=== PATIENT | female | born 1950 | race Caucasian/White ===

== ENCOUNTER 2016-12-17 21:29 | Inpatient (IN) | payer MEDICARE, MEDICAID ==
[~2016-12-17] VITALS: Ht 170.2 cm; Wt 57.2 kg
[2016-12-17] MEDS ORDERED: Albuterol ud Inhalation HHN ONE (21:45)
[2016-12-17] MEDS ORDERED: Ipratropium 0.02% Inh Soln 2.5ml UD HHN ONE (21:45)
[2016-12-17] MEDS ORDERED: Morphine Sulfate 4mg/ml Inj IVP ONE (21:45)
[2016-12-17] MEDS ORDERED: Solu-MEDROL 125mg Inj IVP ONE (21:45)
[2016-12-17] MEDS ORDERED: Tubing IV Cassette IV ONE (22:08)
[2016-12-17 22:28] LABS: BASOPHILS % (AUTO) 1.7 % (0.0-2.0); EOSINOPHILS % (AUTO) 3.4 % (0.0-3.0); HEMOGLOBIN 12.8 G/DL (12.0-16.0); LYMPHOCYTES % (AUTO) 28.1 % (20.0-45.0); MEAN CORPUSCULAR VOLUME 95 FL (80-99); MONOCYTES % (AUTO) 4.4 % (1.0-10.0); NEUTROPHILS % (AUTO) 62.3 % (45.0-75.0); PLATELET COUNT 442 K/UL (150-450); RED BLOOD COUNT 4.72 M/UL (4.20-5.40); RED CELL DISTRIBUTION WIDTH 16.9 % (11.6-14.8); WHITE BLOOD COUNT 16.2 K/UL (4.8-10.8)
[2016-12-17 22:33] LABS: INR 0.9 (0.9-1.1)
[2016-12-17 22:35] LABS: BILIRUBIN, URINE NEGATIVE (NEGATIVE); GLUCOSE, URINE (UA) NEGATIVE (NEGATIVE); KETONES,URINE NEGATIVE (NEGATIVE); LEUKOCYTE ESTERASE ,URINE 3+ (NEGATIVE); NITRITE,URINE NEGATIVE (NEGATIVE); PH,URINE 7 (4.5-8.0); PROTEIN,URINE 2+ (NEGATIVE); UROBILINOGEN,URINE 1 MG/DL (0.0-1.0)
[2016-12-17 22:36] LABS: APPEARANCE,URINE SLIGHTLY CLOUDY; COLOR,URINE YELLOW
[2016-12-17 22:39] LABS: ALANINE AMINOTRANSFERASE 10 U/L (3-33); ALBUMIN 3.2 g/dL (3.5-5.2); ALBUMIN/GLOBULIN RATIO 0.8 (1.0-2.7); ALKALINE PHOSPHATASE 112 U/L (35-104); ANION GAP 11 (5-15); ASPARTATE AMINO TRANSFERASE 21 U/L (5-40); BILIRUBIN,TOTAL 0.2 mg/dL (0.0-1.2); BLOOD UREA NITROGEN 21 mg/dL (7-23); CALCIUM 9.8 mg/dL (8.6-10.2); CARBON DIOXIDE 26 mEQ/L (20-30); CHLORIDE 102 mEQ/L (98-107); CREATINE KINASE 23 U/L (26-140); CREATININE 0.5 mg/dL (0.5-0.9); POTASSIUM 4.6 mEQ/L (3.4-4.9); SODIUM 139 mEQ/L (135-145)
[2016-12-17 22:49] LABS: CKMB 3.5 ng/mL (< 3.8)
[2016-12-17 22:51] VITALS: BP 148/81
[2016-12-17] MEDS ORDERED: PROTONIX40 M2 GT (23:13)
[2016-12-17] MEDS ORDERED: TRAMADOL HCL50 MG GT (23:13)
[2016-12-17] MEDS ORDERED: CALCIUM 500 +1 EAC6 GT (23:13)
[2016-12-17] MEDS ORDERED: GABAPENTIN100 MG GT (23:13)
[2016-12-17] MEDS ORDERED: DIGOXIN0.25 MG/5 GT (23:13)
[2016-12-17] MEDS ORDERED: DOCUSATE SODIU100 MG GT (23:13)
[2016-12-17] MEDS ORDERED: LEVOTHYROXINE75 MCG GT (23:13)
[2016-12-17] MEDS ORDERED: ACTOS15 MG GT (23:13)
[2016-12-17] MEDS ORDERED: ZINC SULFATE220 M1 GT (23:13)
[2016-12-17] MEDS ORDERED: LORAZEPAM1 MG GT (23:13)
[2016-12-17] MEDS ORDERED: DUONEB 0.5-3(2.53 ML TRANSTR092 (23:13)
[2016-12-17] MEDS ORDERED: VITAMIN D1000 UNI1 GT (23:13)
[2016-12-17] MEDS ORDERED: HYDROMORPHONE GT (23:13)
[2016-12-17] MEDS ORDERED: ZOFRAN4 M3 GT (23:13)
[2016-12-17] MEDS ORDERED: TOPAMAX200 MG GT (23:13)
[2016-12-17] MEDS ORDERED: ASCORBIC ACID500 MG GT (23:13)
[2016-12-17] MEDS ORDERED: FOLIC ACID1 MG ESINUS (23:13)
[2016-12-17] MEDS ORDERED: HYDROXYZINE HCL25 M1 GT (23:13)
[2016-12-17] MEDS ORDERED: MIRTAZAPINE7.5 MG GT (23:13)
[2016-12-17] MEDS ORDERED: METOCLOPRA10 MG/10 M GT (23:13)
[2016-12-17] MEDS ORDERED: Albuterol/Ipratropium 3ml neb HHN PRN (23:15)
[2016-12-17] MEDS ORDERED: Miralax 17gm pkt ORAL PRN (23:15)
[2016-12-17] MEDS ORDERED: Nitroglycerin Subl 0.4mg tab SL PRN (23:15)
[2016-12-17] MEDS ORDERED: Mylanta II UD 30ml GT PRN (23:15)
--- NOTE | 2016-12-17 23:27 | Emergency Room Report ---
History of Present Illness General Chief Complaint: Dyspnea/Respdistress Source: Patient Present Illness HPI Is a 66-year-old female with a history of COPD and chronic tracheostomy. She also has a history of chronic pain. She presents with chief complaint of chest pain and shortness of breath. Onset for last few days. Pain is to the left chest area. Sharp. 10 out of 10. No nausea no vomiting. No fever or chills. Coughing but nonproductive in nature. Similar symptoms in the past. Allergies: Coded Allergies: ACETAMINOPHEN (Unverified Allergy, Unknown, 12/17/16) CODEINE (Unverified Allergy, Unknown, 03/04/14) IODINE (Unverified Allergy, Unknown, 12/17/16) Patient History Past Medical History: see triage record, old chart reviewed Past Surgical History: other Pertinent Family History: none Social History: Reports: smoking - History of Last Menstrual Period: none Now: No Immunizations: other Reviewed Nursing Documentation: PMH: Agreed, PSxH: Agreed Nursing Documentation-PMH Hx COPD: Yes - acute and chronic respiratory failure Hx Seizures: Yes Review of Systems Eye: Denies: eye pain, blurred vision ENT: Denies: ear pain, nose congestion, throat swelling Respiratory: Reports: cough, shortness of breath Cardiovascular: Reports: chest pain, Denies: palpitations Gastrointestinal: Denies: abdominal pain, diarrhea, nausea, vomiting Musculoskeletal: Denies: back pain, joint pain Skin: Denies: rash Neurological: Denies: headache, numbness Endocrine: Denies: increased thirst, increased urine Hematologic/Lymphatic: Denies: easy bruising All Other Systems: negative except mentioned in HPI Physical Exam Vital Signs Date Time Temp Pulse Resp B/P (MAP) Pulse Ox O2 Delivery O2 Flow Rate FiO2 12/17/16 21:13 97.3 104 28 143/82 89 Trach Collar 6.0 12/17/16 22:04 45 vitals with hypoxia Sp02 EP Interpretation: abnormal General Appearance: mild distress, cachetic, Chronically Ill Head: normocephalic, atraumatic Eyes: bilateral eye PERRL, bilateral eye EOMI ENT: hearing grossly normal, normal pharynx Neck: full range of motion, supple, no meningismus, tracheotomy Respiratory: chest non-tender, rhonchi, wheezing Cardiovascular #1: regular rate, rhythm, no murmur Gastrointestinal: normal bowel sounds, non tender, no mass, no organomegaly, no bruit, non-distended Musculoskeletal: back normal, normal range of motion Neurologic: alert Psychiatric: mood/affect normal Skin: warm/dry Procedures Additional Procedure Procedure Narrative procedure: Replacement of tracheostomy tube Indication: Tracheostomy malfunction Description: Patient was hypoxic. Breathing treatment and oxygen due to tracheostomy was not successful. oxygenation came up with nasal cannula. The pharmaceutical laboratory technician notified me that the tracheostomy tube is jail out and he is unable to put it back in. I removed the tube and noticed that the membrane has already almost completely closed up. I used the obturator of the [place] and dilated the opening. Said her put back her tracheostomy tube in good position. She was able to be oxygenated now. Patient tolerated procedure without a problem. Medical Decision Making Diagnostic Impression: Primary Impression: Respiratory distress Additional Impressions: Acute and chronic respiratory failure ([id number]) Qualified Codes: J96.21 - Acute and chronic respiratory failure with hypoxia COPD with exacerbation Tracheostomy malfunction Chest pain ER Course She with acute on chronic respiratory failure. Probably secondary to malfunction of her tracheostomy tube. I order antibiotics to cover for atypical in hospital-acquired pneumonia. Patient felt better now. Oxygenation is better. Will admit for further workup. I discussed the case with Dr. Brewer and Dr. Herrera for admission. Lab Results Impression labs with elevated WBC EKG Diagnostic Results Rate: tachycardiac Rhythm: NSR ST Segments: no acute changes Rhythm Strip Diag. Results Rhythm Strip Time: 23:26 EP Interpretation: yes Rate: 100 Rhythm: NSR, no PVC's, no ectopy Chest X-Ray Diagnostic Results Chest X-Ray Diagnostic Results : Chest X-Ray Ordered: Yes # of Views/Limited/Complete: 1 View Indication: Chest Pain EP Interpretation: Yes Interpretation: no consolidation, no effusion, no pneumothorax, other - COPD Impression: Other - COPD Electronically Signed by: Electronically signed by Balta Salazar MD Last Vital Signs Date Time Temp Pulse Resp B/P (MAP) Pulse Ox O2 Delivery O2 Flow Rate FiO2 12/17/16 22:51 99.5 108 20 148/81 93 Trach Collar 10.0 12/17/16 22:05 45 Status: improved Disposition: ADMITTED INPATIENT Condition: Serious Referrals: RACHEAL RIVERA (PCP) BALTA SALAZAR M.D. Dec 17, 2016 23:27
[2016-12-18] VITALS (7 sets, daily range): BP systolic 110–141; BP diastolic 62–77
[2016-12-18] MEDS ORDERED: Vancomycin 1gm inj IVPB ONE (03:13)
[2016-12-18] MEDS ORDERED: Vancomycin 1gm/D5W 275ml IVPB ONE ×2 (04:00)
[2016-12-18] MEDS ORDERED: Cefepime 1gm vial ONE (05:35)
[2016-12-18] MEDS: Cefepime HCl 1 GM in D5W 55 ML IV SCH ×2 (05:57→17:56)
[2016-12-18] MEDS: NovoLOG Insulin Flexpen SUBQ SCH ×4 (06:30→20:49)
[2016-12-18 08:16] LABS: BASOPHILS % (AUTO) 0.9 % (0.0-2.0); EOSINOPHILS % (AUTO) 0.1 % (0.0-3.0); HEMATOCRIT 40.4 % (37.0-47.0); HEMOGLOBIN 12.8 G/DL (12.0-16.0); LYMPHOCYTES % (AUTO) 16.7 % (20.0-45.0); MEAN CORPUSCULAR VOLUME 94 FL (80-99); MONOCYTES % (AUTO) 4.3 % (1.0-10.0); PLATELET COUNT 453 K/UL (150-450); RED CELL DISTRIBUTION WIDTH 16.1 % (11.6-14.8); WHITE BLOOD COUNT 15.9 K/UL (4.8-10.8)
[2016-12-18 08:25] LABS: ALBUMIN 2.9 g/dL (3.5-5.2); ANION GAP 11 (5-15); BLOOD UREA NITROGEN 17 mg/dL (7-23); CALCIUM 9.6 mg/dL (8.6-10.2); CARBON DIOXIDE 24 mEQ/L (20-30); CHLORIDE 103 mEQ/L (98-107); CREATININE 0.4 mg/dL (0.5-0.9); PHOSPHORUS 3.9 mg/dL (2.5-4.8); POTASSIUM 4.7 mEQ/L (3.4-4.9); SODIUM 138 mEQ/L (135-145)
--- NOTE | 2016-12-18 08:43 | History and Physical ---
History of Present Illness General Date patient seen: Dec 18, 2016 Reason for Hospitalization: Dyspnea/Respdistress Present Illness HPI 66-year-old female with a history of COPD and chronic tracheostomy, CHF, chronic pain, assisted resident. She presents with chief complaint of chest pain and shortness of breath. Pain is to the left chest area. Sharp. 10 out of 10. No nausea no vomiting. Pt's trach was found to be malpositioned in ER on presentation. The ER physician repositioned it successfully. Allergies: Coded Allergies: ACETAMINOPHEN (Unverified Allergy, Unknown, 12/17/16) CODEINE (Unverified Allergy, Unknown, 03/04/14) IODINE (Unverified Allergy, Unknown, 12/17/16) Medication History Scheduled Ascorbic Acid* (Ascorbic Acid*), 500 MG GT TWICE A DAY, (Reported) Calcium Carbonate/Vitamin D3 (Calcium 500 + Vit D 200 Caplet), 1 EACH GT DAILY, (Reported) Cholecalciferol (Vitamin D3)* (Vitamin D*), 1,000 UNIT GT DAILY, (Reported) Digoxin* (Digoxin*), 0.25 MG GT DAILY, (Reported) Docusate Sodium* (Docusate Sodium*), 100 MG GT TWICE A DAY, (Reported) Folic Acid* (Folic Acid*), 1 MG ESINUS DAILY, (Reported) Gabapentin* (Gabapentin*), 200 MG GT THREE TIMES A DAY, (Reported) Hydroxyzine Hcl (Hydroxyzine Hcl), 25 MG GT BID, (Reported) Ipratropium/Albuterol Sulfate (DuoNeb 0.5-3(2.5)mg/3ml), 3 ML [id number] EVERY 2 HOURS, (Reported) Levothyroxine Sodium* (Levothyroxine Sodium*), 75 MCG GT DAILY, (Reported) Lorazepam* (Lorazepam*), 1 MG GT EVERY 6 HOURS, (Reported) Metoclopramide Hcl* (Metoclopramide Hcl*), 5 MG GT EVERY 6 HOURS, (Reported) Mirtazapine* (Mirtazapine*), 7.5 MG GT BEDTIME, (Reported) Pantoprazole Sodium (Protonix), 40 MG GT DAILY, (Reported) Pioglitazone Hcl* (Actos*), 15 MG GT DAILY, (Reported) Topiramate (Topamax), 200 MG GT EVERY 12 HOURS, (Reported) Zinc Sulfate (Zinc Sulfate*), 220 MG GT DAILY, (Reported) [Hydromorphone Liq], 1 MG GT EVERY 2 HOURS, (Reported) Scheduled PRN Ondansetron* (Zofran*), 4 MG GT Q6H PRN for Nausea & Vomiting, (Reported) Tramadol Hcl* (Ultram*), 50 MG GT Q6H PRN for For Pain, (Reported) Patient History Healthcare decision maker Resuscitation status Full Code Advanced Directive on File Past Medical/Surgical History Past Medical/Surgical History: (1) COPD (chronic obstructive pulmonary disease) (2) CHF (congestive heart failure) (3) Hypothyroidism (4) Diabetes mellitus Review of Systems All Other Systems: negative except mentioned in HPI Physical Exam General Appearance: WD/WN Lines, tubes and drains: peripheral, gtube HEENT: normocephalic, atraumatic Neck: non-tender, normal alignment Respiratory/Chest: chest wall non-tender, lungs clear Cardiovascular/Chest: normal peripheral pulses, normal rate Abdomen: normal bowel sounds, non tender Genitourinary/Rectal: normal genital exam, normal rectal exam Extremities: normal range of motion, non-tender Last 24 Hour Vital Signs Date Time Temp Pulse Resp B/P (MAP) Pulse Ox O2 Delivery O2 Flow Rate FiO2 12/18/16 04:00 94 12/18/16 03:56 97.6 93 20 110/63 92 Venturi Mask 12/18/16 01:40 98 26 114/62 97 Trach Collar 10.0 12/18/16 01:35 98 26 114/62 97 Trach Collar 10.0 12/18/16 00:32 97.0 105 24 112/77 94 Trach Collar 10.0 12/17/16 23:00 98 T-piece 10.0 35 12/17/16 23:00 T-piece 10.0 35 12/17/16 22:51 99.5 108 20 148/81 93 Trach Collar 10.0 12/17/16 22:39 97.3 12/17/16 22:05 112 20 99 T-piece 10.0 45 12/17/16 22:04 108 20 98 T-piece 10.0 45 12/17/16 21:33 104 28 Trach Collar 6.0 12/17/16 21:13 97.3 104 28 143/82 89 Trach Collar 6.0 Laboratory Tests Test 12/17/16 22:00 12/18/16 07:50 White Blood Count 16.2 K/UL (4.8-10.8) H 15.9 K/UL (4.8-10.8) H Red Blood Count 4.72 M/UL (4.20-5.40) 4.30 M/UL (4.20-5.40) Hemoglobin 12.8 G/DL (12.0-16.0) 12.8 G/DL (12.0-16.0) Hematocrit 45.0 % (37.0-47.0) 40.4 % (37.0-47.0) Mean Corpuscular Volume 95 FL (80-99) 94 FL (80-99) Mean Corpuscular Hemoglobin 27.2 PG (27.0-31.0) 29.7 PG (27.0-31.0) Mean Corpuscular Hemoglobin Concent 28.5 G/DL (32.0-36.0) L 31.6 G/DL (32.0-36.0) L Red Cell Distribution Width 16.9 % (11.6-14.8) H 16.1 % (11.6-14.8) H Platelet Count 442 K/UL (150-450) 453 K/UL (150-450) H Mean Platelet Volume 7.2 FL (6.5-10.1) 8.2 FL (6.5-10.1) Neutrophils (%) (Auto) 62.3 % (45.0-75.0) 78.0 % (45.0-75.0) H Lymphocytes (%) (Auto) 28.1 % (20.0-45.0) 16.7 % (20.0-45.0) L Monocytes (%) (Auto) 4.4 % (1.0-10.0) 4.3 % (1.0-10.0) Eosinophils (%) (Auto) 3.4 % (0.0-3.0) H 0.1 % (0.0-3.0) Basophils (%) (Auto) 1.7 % (0.0-2.0) 0.9 % (0.0-2.0) Prothrombin Time 9.6 SEC (9.30-11.50) Prothromb Time International Ratio 0.9 (0.9-1.1) Activated Partial Thromboplast Time 28 SEC (23-33) Urine Color Yellow Urine Appearance Slightly cloudy Urine pH 7 (4.5-8.0) Urine Specific [place] 1.005 (1.005-1.035) Urine Protein 2+ (NEGATIVE) H Urine Glucose (UA) Negative (NEGATIVE) Urine Ketones Negative (NEGATIVE) Urine Occult Blood 2+ (NEGATIVE) H Urine Nitrite Negative (NEGATIVE) Urine Bilirubin Negative (NEGATIVE) Urine Urobilinogen 1 MG/DL (0.0-1.0) H Urine Leukocyte Esterase 3+ (NEGATIVE) H Urine RBC 5-10 /HPF (0 - 2) H Urine WBC 2-4 /HPF (0 - 2) Urine Squamous Epithelial Cells Few /LPF (NONE/OCC) Urine Bacteria Few /HPF (NONE) Sodium Level 139 mEQ/L (135-145) 138 mEQ/L (135-145) Potassium Level 4.6 mEQ/L (3.4-4.9) 4.7 mEQ/L (3.4-4.9) Chloride Level 102 mEQ/L (98-107) 103 mEQ/L (98-107) Carbon Dioxide Level 26 mEQ/L (20-30) 24 mEQ/L (20-30) Anion Gap 11 (5-15) 11 (5-15) Blood Urea Nitrogen 21 mg/dL (7-23) 17 mg/dL (7-23) Creatinine 0.5 mg/dL (0.5-0.9) 0.4 mg/dL (0.5-0.9) L Estimat Glomerular Filtration Rate > 60 mL/min (>60) > 60 mL/min (>60) Glucose Level 141 mg/dL (74-106) H 121 mg/dL (74-106) H Lactic Acid Level 1.10 mmol/L (0.66-2.22) Calcium Level 9.8 mg/dL (8.6-10.2) 9.6 mg/dL (8.6-10.2) Total Bilirubin 0.2 mg/dL (0.0-1.2) Aspartate Amino Transf (AST/SGOT) 21 U/L (5-40) Alanine Aminotransferase (ALT/SGPT) 10 U/L (3-33) Alkaline Phosphatase 112 U/L (35-104) H Total Creatine Kinase 23 U/L (26-140) L Creatine Kinase MB 3.5 ng/mL (< 3.8) Creatine Kinase MB Relative Index 15.2 Troponin I < 0.30 ng/mL (<=0.30) Pro-B-Type Natriuretic Peptide 454 pg/mL (0-125) H Total Protein 6.9 g/dL (6.6-8.7) Albumin 3.2 g/dL (3.5-5.2) L 2.9 g/dL (3.5-5.2) L Globulin 3.7 g/dL Albumin/Globulin Ratio 0.8 (1.0-2.7) L Phosphorus Level 3.9 mg/dL (2.5-4.8) Height (Feet): 5 Height (Inches): 7.00 Weight (Pounds): 126 Medications Current Medications Medications (Trade) Dose Ordered Sig/Sandra Route PRN Reason Start Time Stop Time Status Last Admin Dose Admin Al Hydroxide/Mg Hydroxide (Mylanta II) 30 ml Q6H PRN GT dyspepsia 12/17/16 23:15 01/16/17 23:14 Albuterol/ Ipratropium (DuoNeb 0.5-3(2.5)mg/3ml) 3 ml Q4H PRN HHN Shortness of Breath 12/17/16 23:15 12/22/16 23:14 Cefepime HCl 1 gm/ Dextrose 55 ml @ 110 mls/hr Q12H IV 12/18/16 06:00 12/25/16 05:59 12/18/16 05:57 Dextrose (Dextrose 50%) STAT PRN IV Hypoglycemia 12/17/16 23:15 01/16/17 23:14 Gabapentin (Neurontin) 200 mg THREE TIMES A DAY GT 12/18/16 09:00 01/17/17 08:59 Heparin Sodium (Porcine) (Heparin 5000 units/ml) 5,000 units EVERY 12 HOURS SUBQ 12/18/16 09:00 01/17/17 08:59 Hydroxyzine HCl (Atarax) 25 mg BID GT 12/18/16 09:00 01/17/17 08:59 Insulin Aspart (NovoLOG) BEFORE MEALS AND HS SUBQ 12/18/16 06:30 01/17/17 06:29 Levothyroxine Sodium (Synthroid) 75 mcg DAILY@0630 GT 12/18/16 06:30 01/17/17 06:29 12/18/16 06:21 Nitroglycerin (Ntg) 0.4 mg Q5M PRN SL Prn Chest Pain 12/17/16 23:15 01/16/17 23:14 Ondansetron HCl (Zofran) 4 mg Q6H PRN IVP Nausea & Vomiting 12/17/16 23:15 01/16/17 23:14 Polyethylene Glycol (Miralax) 17 gm DAILYPRN PRN ORAL Constipation 12/17/16 23:15 01/16/17 23:14 Temazepam (Restoril) 15 mg HSPRN PRN GT Insomnia 12/17/16 23:15 12/24/16 23:14 Vancomycin HCl (Vanco rx to dose) 1 ea DAILY PRN MISC Per rx protocol 12/17/16 23:15 01/16/17 23:14 Vancomycin/Sodium Chloride 250 ml @ 167.007 mls/hr Q8H IVPB 12/18/16 12:00 12/23/16 11:59 Assessment/Plan Problem List: (1) Acute and chronic respiratory failure ([id number]) ICD Codes: J96.20 - Acute and chronic respiratory failure, unspecified whether with hypoxia or hypercapnia SNOMED: 86867943 Qualifiers: Qualified Codes: J96.21 - Acute and chronic respiratory failure with hypoxia (2) Tracheostomy malfunction ICD Codes: J95.03 - Malfunction of tracheostomy stoma SNOMED: 413824239 (3) COPD (chronic obstructive pulmonary disease) ICD Codes: J44.9 - Chronic obstructive pulmonary disease, unspecified SNOMED: 38768208 (4) Hypothyroidism ICD Codes: E03.9 - Hypothyroidism, unspecified SNOMED: 43929281 (5) Diabetes mellitus ICD Codes: E11.9 - Type 2 diabetes mellitus without complications SNOMED: 92853828 Assessment/Plan check sputum respiratory treatment echo cardiology evaluation psych evaluation DEDRICK SOLANO Dec 18, 2016 08:43
--- NOTE | 2016-12-18 08:43 | History and Physical ---
History of Present Illness General Date patient seen: Dec 18, 2016 Reason for Hospitalization: Dyspnea/Respdistress Present Illness HPI 66-year-old female with a history of COPD and chronic tracheostomy, CHF, chronic pain, [facility] resident. She presents with chief complaint of chest pain and shortness of breath. Pain is to the left chest area. Sharp. 10 out of 10. No nausea no vomiting. Pt's trach was found to be malpositioned in ER on presentation. The ER physician repositioned it successfully. Allergies: Coded Allergies: ACETAMINOPHEN (Unverified Allergy, Unknown, 12/17/16) CODEINE (Unverified Allergy, Unknown, 03/04/14) IODINE (Unverified Allergy, Unknown, 12/17/16) Medication History Scheduled Ascorbic Acid* (Ascorbic Acid*), 500 MG GT TWICE A DAY, (Reported) Calcium Carbonate/Vitamin D3 (Calcium 500 + Vit D 200 Caplet), 1 EACH GT DAILY, (Reported) Cholecalciferol (Vitamin D3)* (Vitamin D*), 1,000 UNIT GT DAILY, (Reported) Digoxin* (Digoxin*), 0.25 MG GT DAILY, (Reported) Docusate Sodium* (Docusate Sodium*), 100 MG GT TWICE A DAY, (Reported) Folic Acid* (Folic Acid*), 1 MG ESINUS DAILY, (Reported) Gabapentin* (Gabapentin*), 200 MG GT THREE TIMES A DAY, (Reported) Hydroxyzine Hcl (Hydroxyzine Hcl), 25 MG GT BID, (Reported) Ipratropium/Albuterol Sulfate (DuoNeb 0.5-3(2.5)mg/3ml), 3 ML [id number] EVERY 2 HOURS, (Reported) Levothyroxine Sodium* (Levothyroxine Sodium*), 75 MCG GT DAILY, (Reported) Lorazepam* (Lorazepam*), 1 MG GT EVERY 6 HOURS, (Reported) Metoclopramide Hcl* (Metoclopramide Hcl*), 5 MG GT EVERY 6 HOURS, (Reported) Mirtazapine* (Mirtazapine*), 7.5 MG GT BEDTIME, (Reported) Pantoprazole Sodium (Protonix), 40 MG GT DAILY, (Reported) Pioglitazone Hcl* (Actos*), 15 MG GT DAILY, (Reported) Topiramate (Topamax), 200 MG GT EVERY 12 HOURS, (Reported) Zinc Sulfate (Zinc Sulfate*), 220 MG GT DAILY, (Reported) [Hydromorphone Liq], 1 MG GT EVERY 2 HOURS, (Reported) Scheduled PRN Ondansetron* (Zofran*), 4 MG GT Q6H PRN for Nausea & Vomiting, (Reported) Tramadol Hcl* (Ultram*), 50 MG GT Q6H PRN for For Pain, (Reported) Patient History Healthcare decision maker Resuscitation status Full Code Advanced Directive on File Past Medical/Surgical History Past Medical/Surgical History: (1) COPD (chronic obstructive pulmonary disease) (2) CHF (congestive heart failure) (3) Hypothyroidism (4) Diabetes mellitus Review of Systems All Other Systems: negative except mentioned in HPI Physical Exam General Appearance: WD/WN Lines, tubes and drains: peripheral, gtube HEENT: normocephalic, atraumatic Neck: non-tender, normal alignment Respiratory/Chest: chest wall non-tender, lungs clear Cardiovascular/Chest: normal peripheral pulses, normal rate Abdomen: normal bowel sounds, non tender Genitourinary/Rectal: normal genital exam, normal rectal exam Extremities: normal range of motion, non-tender Last 24 Hour Vital Signs Date Time Temp Pulse Resp B/P (MAP) Pulse Ox O2 Delivery O2 Flow Rate FiO2 12/18/16 04:00 94 12/18/16 03:56 97.6 93 20 110/63 92 Venturi Mask 12/18/16 01:40 98 26 114/62 97 Trach Collar 10.0 12/18/16 01:35 98 26 114/62 97 Trach Collar 10.0 12/18/16 00:32 97.0 105 24 112/77 94 Trach Collar 10.0 12/17/16 23:00 98 T-piece 10.0 35 12/17/16 23:00 T-piece 10.0 35 12/17/16 22:51 99.5 108 20 148/81 93 Trach Collar 10.0 12/17/16 22:39 97.3 12/17/16 22:05 112 20 99 T-piece 10.0 45 12/17/16 22:04 108 20 98 T-piece 10.0 45 12/17/16 21:33 104 28 Trach Collar 6.0 12/17/16 21:13 97.3 104 28 143/82 89 Trach Collar 6.0 Laboratory Tests Test 12/17/16 22:00 12/18/16 07:50 White Blood Count 16.2 K/UL (4.8-10.8) H 15.9 K/UL (4.8-10.8) H Red Blood Count 4.72 M/UL (4.20-5.40) 4.30 M/UL (4.20-5.40) Hemoglobin 12.8 G/DL (12.0-16.0) 12.8 G/DL (12.0-16.0) Hematocrit 45.0 % (37.0-47.0) 40.4 % (37.0-47.0) Mean Corpuscular Volume 95 FL (80-99) 94 FL (80-99) Mean Corpuscular Hemoglobin 27.2 PG (27.0-31.0) 29.7 PG (27.0-31.0) Mean Corpuscular Hemoglobin Concent 28.5 G/DL (32.0-36.0) L 31.6 G/DL (32.0-36.0) L Red Cell Distribution Width 16.9 % (11.6-14.8) H 16.1 % (11.6-14.8) H Platelet Count 442 K/UL (150-450) 453 K/UL (150-450) H Mean Platelet Volume 7.2 FL (6.5-10.1) 8.2 FL (6.5-10.1) Neutrophils (%) (Auto) 62.3 % (45.0-75.0) 78.0 % (45.0-75.0) H Lymphocytes (%) (Auto) 28.1 % (20.0-45.0) 16.7 % (20.0-45.0) L Monocytes (%) (Auto) 4.4 % (1.0-10.0) 4.3 % (1.0-10.0) Eosinophils (%) (Auto) 3.4 % (0.0-3.0) H 0.1 % (0.0-3.0) Basophils (%) (Auto) 1.7 % (0.0-2.0) 0.9 % (0.0-2.0) Prothrombin Time 9.6 SEC (9.30-11.50) Prothromb Time International Ratio 0.9 (0.9-1.1) Activated Partial Thromboplast Time 28 SEC (23-33) Urine Color Yellow Urine Appearance Slightly cloudy Urine pH 7 (4.5-8.0) Urine Specific [place] 1.005 (1.005-1.035) Urine Protein 2+ (NEGATIVE) H Urine Glucose (UA) Negative (NEGATIVE) Urine Ketones Negative (NEGATIVE) Urine Occult Blood 2+ (NEGATIVE) H Urine Nitrite Negative (NEGATIVE) Urine Bilirubin Negative (NEGATIVE) Urine Urobilinogen 1 MG/DL (0.0-1.0) H Urine Leukocyte Esterase 3+ (NEGATIVE) H Urine RBC 5-10 /HPF (0 - 2) H Urine WBC 2-4 /HPF (0 - 2) Urine Squamous Epithelial Cells Few /LPF (NONE/OCC) Urine Bacteria Few /HPF (NONE) Sodium Level 139 mEQ/L (135-145) 138 mEQ/L (135-145) Potassium Level 4.6 mEQ/L (3.4-4.9) 4.7 mEQ/L (3.4-4.9) Chloride Level 102 mEQ/L (98-107) 103 mEQ/L (98-107) Carbon Dioxide Level 26 mEQ/L (20-30) 24 mEQ/L (20-30) Anion Gap 11 (5-15) 11 (5-15) Blood Urea Nitrogen 21 mg/dL (7-23) 17 mg/dL (7-23) Creatinine 0.5 mg/dL (0.5-0.9) 0.4 mg/dL (0.5-0.9) L Estimat Glomerular Filtration Rate > 60 mL/min (>60) > 60 mL/min (>60) Glucose Level 141 mg/dL (74-106) H 121 mg/dL (74-106) H Lactic Acid Level 1.10 mmol/L (0.66-2.22) Calcium Level 9.8 mg/dL (8.6-10.2) 9.6 mg/dL (8.6-10.2) Total Bilirubin 0.2 mg/dL (0.0-1.2) Aspartate Amino Transf (AST/SGOT) 21 U/L (5-40) Alanine Aminotransferase (ALT/SGPT) 10 U/L (3-33) Alkaline Phosphatase 112 U/L (35-104) H Total Creatine Kinase 23 U/L (26-140) L Creatine Kinase MB 3.5 ng/mL (< 3.8) Creatine Kinase MB Relative Index 15.2 Troponin I < 0.30 ng/mL (<=0.30) Pro-B-Type Natriuretic Peptide 454 pg/mL (0-125) H Total Protein 6.9 g/dL (6.6-8.7) Albumin 3.2 g/dL (3.5-5.2) L 2.9 g/dL (3.5-5.2) L Globulin 3.7 g/dL Albumin/Globulin Ratio 0.8 (1.0-2.7) L Phosphorus Level 3.9 mg/dL (2.5-4.8) Height (Feet): 5 Height (Inches): 7.00 Weight (Pounds): 126 Medications Current Medications Medications (Trade) Dose Ordered Sig/Sandra Route PRN Reason Start Time Stop Time Status Last Admin Dose Admin Al Hydroxide/Mg Hydroxide (Mylanta II) 30 ml Q6H PRN GT dyspepsia 12/17/16 23:15 01/16/17 23:14 Albuterol/ Ipratropium (DuoNeb 0.5-3(2.5)mg/3ml) 3 ml Q4H PRN HHN Shortness of Breath 12/17/16 23:15 12/22/16 23:14 Cefepime HCl 1 gm/ Dextrose 55 ml @ 110 mls/hr Q12H IV 12/18/16 06:00 12/25/16 05:59 12/18/16 05:57 Dextrose (Dextrose 50%) STAT PRN IV Hypoglycemia 12/17/16 23:15 01/16/17 23:14 Gabapentin (Neurontin) 200 mg THREE TIMES A DAY GT 12/18/16 09:00 01/17/17 08:59 Heparin Sodium (Porcine) (Heparin 5000 units/ml) 5,000 units EVERY 12 HOURS SUBQ 12/18/16 09:00 01/17/17 08:59 Hydroxyzine HCl (Atarax) 25 mg BID GT 12/18/16 09:00 01/17/17 08:59 Insulin Aspart (NovoLOG) BEFORE MEALS AND HS SUBQ 12/18/16 06:30 01/17/17 06:29 Levothyroxine Sodium (Synthroid) 75 mcg DAILY@0630 GT 12/18/16 06:30 01/17/17 06:29 12/18/16 06:21 Nitroglycerin (Ntg) 0.4 mg Q5M PRN SL Prn Chest Pain 12/17/16 23:15 01/16/17 23:14 Ondansetron HCl (Zofran) 4 mg Q6H PRN IVP Nausea & Vomiting 12/17/16 23:15 01/16/17 23:14 Polyethylene Glycol (Miralax) 17 gm DAILYPRN PRN ORAL Constipation 12/17/16 23:15 01/16/17 23:14 Temazepam (Restoril) 15 mg HSPRN PRN GT Insomnia 12/17/16 23:15 12/24/16 23:14 Vancomycin HCl (Vanco rx to dose) 1 ea DAILY PRN MISC Per rx protocol 12/17/16 23:15 01/16/17 23:14 Vancomycin/Sodium Chloride 250 ml @ 167.007 mls/hr Q8H IVPB 12/18/16 12:00 12/23/16 11:59 Assessment/Plan Problem List: (1) Acute and chronic respiratory failure ([id number]) ICD Codes: J96.20 - Acute and chronic respiratory failure, unspecified whether with hypoxia or hypercapnia SNOMED: 17154864 Qualifiers: Qualified Codes: J96.21 - Acute and chronic respiratory failure with hypoxia (2) Tracheostomy malfunction ICD Codes: J95.03 - Malfunction of tracheostomy stoma SNOMED: 038215846 (3) COPD (chronic obstructive pulmonary disease) ICD Codes: J44.9 - Chronic obstructive pulmonary disease, unspecified SNOMED: 30777971 (4) Hypothyroidism ICD Codes: E03.9 - Hypothyroidism, unspecified SNOMED: 28567809 (5) Diabetes mellitus ICD Codes: E11.9 - Type 2 diabetes mellitus without complications SNOMED: 37434096 Assessment/Plan check sputum respiratory treatment echo cardiology evaluation psych evaluation DEDRICK SOLANO Dec 18, 2016 08:43
[2016-12-18] MEDS: HydrOXYzine 25mg tab GT SCH ×2 (09:36→17:57)
[2016-12-18] MEDS: Heparin 5000 units/ml inj SUBQ SCH ×2 (09:37→20:49)
[2016-12-18] MEDS: Morphine Sulfate 2mg/ml Inj IVP PRN ×3 (09:38→20:48)
--- NOTE | 2016-12-18 11:24 | Diagnostic Imaging Report ---
Indication: Dyspnea Comparison: None A single view chest radiograph was obtained. Findings: PICC line tip is in the right atrium. Tracheostomy is noted. Interstitial opacities are present within the lungs are to be indeterminate and nonspecific in nature. Heart is normal in size. IVC filter is present. The bones are osteopenic. Impression: Interstitial disease nonspecific. CHF, pneumonitis not excluded. Please correlate clinically.
[2016-12-18] MEDS ORDERED: Vancomycin 750mg/NS 250ml 250 ML IVPB SCH (12:00)
--- NOTE | 2016-12-18 13:25 | Cardiology Progress Note ---
Assessment/Plan Assessment/Plan dyspnea due to trach tube malfunction replace chronic trach abn ekg new since 09/2016 [place] S/P spinal fusion Hypothyroidism DVT (deep venous thrombosis) COPD (chronic obstructive pulmonary disease) Hip surgery respiration back to normal ekg soem change but no acute sx of coronayr syndrome dc plan as per dr [place] [id number] Objective Last 24 Hour Vital Signs Date Time Temp Pulse Resp B/P (MAP) Pulse Ox O2 Delivery O2 Flow Rate FiO2 12/18/16 09:36 106 12/18/16 08:00 93 T-piece 10.0 35 12/18/16 08:00 T-piece 10.0 35 12/18/16 08:00 96.4 88 24 129/73 94 T-piece 35 12/18/16 04:00 94 12/18/16 03:56 97.6 93 20 110/63 92 Venturi Mask 12/18/16 01:40 98 26 114/62 97 Trach Collar 10.0 12/18/16 01:35 98 26 114/62 97 Trach Collar 10.0 12/18/16 00:32 97.0 105 24 112/77 94 Trach Collar 10.0 12/17/16 23:00 98 T-piece 10.0 35 12/17/16 23:00 T-piece 10.0 35 12/17/16 22:51 99.5 108 20 148/81 93 Trach Collar 10.0 12/17/16 22:39 97.3 12/17/16 22:05 112 20 99 T-piece 10.0 45 12/17/16 22:04 108 20 98 T-piece 10.0 45 12/17/16 21:33 104 28 Trach Collar 6.0 12/17/16 21:13 97.3 104 28 143/82 89 Trach Collar 6.0 Laboratory Tests Test 12/17/16 22:00 12/18/16 07:50 White Blood Count 16.2 K/UL (4.8-10.8) H 15.9 K/UL (4.8-10.8) H Red Blood Count 4.72 M/UL (4.20-5.40) 4.30 M/UL (4.20-5.40) Hemoglobin 12.8 G/DL (12.0-16.0) 12.8 G/DL (12.0-16.0) Hematocrit 45.0 % (37.0-47.0) 40.4 % (37.0-47.0) Mean Corpuscular Volume 95 FL (80-99) 94 FL (80-99) Mean Corpuscular Hemoglobin 27.2 PG (27.0-31.0) 29.7 PG (27.0-31.0) Mean Corpuscular Hemoglobin Concent 28.5 G/DL (32.0-36.0) L 31.6 G/DL (32.0-36.0) L Red Cell Distribution Width 16.9 % (11.6-14.8) H 16.1 % (11.6-14.8) H Platelet Count 442 K/UL (150-450) 453 K/UL (150-450) H Mean Platelet Volume 7.2 FL (6.5-10.1) 8.2 FL (6.5-10.1) Neutrophils (%) (Auto) 62.3 % (45.0-75.0) 78.0 % (45.0-75.0) H Lymphocytes (%) (Auto) 28.1 % (20.0-45.0) 16.7 % (20.0-45.0) L Monocytes (%) (Auto) 4.4 % (1.0-10.0) 4.3 % (1.0-10.0) Eosinophils (%) (Auto) 3.4 % (0.0-3.0) H 0.1 % (0.0-3.0) Basophils (%) (Auto) 1.7 % (0.0-2.0) 0.9 % (0.0-2.0) Prothrombin Time 9.6 SEC (9.30-11.50) Prothromb Time International Ratio 0.9 (0.9-1.1) Activated Partial Thromboplast Time 28 SEC (23-33) Urine Color Yellow Urine Appearance Slightly cloudy Urine pH 7 (4.5-8.0) Urine Specific [place] 1.005 (1.005-1.035) Urine Protein 2+ (NEGATIVE) H Urine Glucose (UA) Negative (NEGATIVE) Urine Ketones Negative (NEGATIVE) Urine Occult Blood 2+ (NEGATIVE) H Urine Nitrite Negative (NEGATIVE) Urine Bilirubin Negative (NEGATIVE) Urine Urobilinogen 1 MG/DL (0.0-1.0) H Urine Leukocyte Esterase 3+ (NEGATIVE) H Urine RBC 5-10 /HPF (0 - 2) H Urine WBC 2-4 /HPF (0 - 2) Urine Squamous Epithelial Cells Few /LPF (NONE/OCC) Urine Bacteria Few /HPF (NONE) Sodium Level 139 mEQ/L (135-145) 138 mEQ/L (135-145) Potassium Level 4.6 mEQ/L (3.4-4.9) 4.7 mEQ/L (3.4-4.9) Chloride Level 102 mEQ/L (98-107) 103 mEQ/L (98-107) Carbon Dioxide Level 26 mEQ/L (20-30) 24 mEQ/L (20-30) Anion Gap 11 (5-15) 11 (5-15) Blood Urea Nitrogen 21 mg/dL (7-23) 17 mg/dL (7-23) Creatinine 0.5 mg/dL (0.5-0.9) 0.4 mg/dL (0.5-0.9) L Estimat Glomerular Filtration Rate > 60 mL/min (>60) > 60 mL/min (>60) Glucose Level 141 mg/dL (74-106) H 121 mg/dL (74-106) H Lactic Acid Level 1.10 mmol/L (0.66-2.22) Calcium Level 9.8 mg/dL (8.6-10.2) 9.6 mg/dL (8.6-10.2) Total Bilirubin 0.2 mg/dL (0.0-1.2) Aspartate Amino Transf (AST/SGOT) 21 U/L (5-40) Alanine Aminotransferase (ALT/SGPT) 10 U/L (3-33) Alkaline Phosphatase 112 U/L (35-104) H Total Creatine Kinase 23 U/L (26-140) L Creatine Kinase MB 3.5 ng/mL (< 3.8) Creatine Kinase MB Relative Index 15.2 Troponin I < 0.30 ng/mL (<=0.30) Pro-B-Type Natriuretic Peptide 454 pg/mL (0-125) H Total Protein 6.9 g/dL (6.6-8.7) Albumin 3.2 g/dL (3.5-5.2) L 2.9 g/dL (3.5-5.2) L Globulin 3.7 g/dL Albumin/Globulin Ratio 0.8 (1.0-2.7) L Phosphorus Level 3.9 mg/dL (2.5-4.8) PEARL GARCIA Dec 18, 2016 13:25
--- NOTE | 2016-12-18 17:23 | Wound Care Consultation ---
Wound Assessment Wound Assessment #1: Wound Number: 1 Wound Present on Admission: Yes New Wound: No Status Change of Wound: No Wound Location Body Site Modif: mid Wound Location Body Site: other - Sacrococcygeal, right and left buttock Wound Type: pressure ulcer Fahad Test: Does not Fahad Pressure Ulcer Stage: II - scattered Wound Thickness: Partial Thickness Percent of Wound [place]/Red: 100 Wound Drainage Description: Serosanguineous Wound Drainage Amount: Scant Wound Drainage Odor: None/Absent Tissue Surrounding Wound: Macerated Wound General Appearance: Reddened, Draining Wound Assessment #2: Wound Number: 2 Wound Present on Admission: Yes New Wound: No Status Change of Wound: No Wound Location Body Site Modif: right, upper Wound Location Body Site: chest Wound Type: traumatic injury Fahad Test: Does not Fahad Wound Thickness: Partial Thickness Wound Length: 2.0 Wound Width: 5.0 Wound Depth: 0.1 Percent of Wound [place]/Red: 100 Wound Drainage Description: Serosanguineous Wound Drainage Amount: Scant Wound Drainage Odor: None/Absent Tissue Surrounding Wound: Erythemic Wound General Appearance: Reddened, Draining Wound Comment #1 Extensive scattered stage II pressure ulcer on Sacrococcygeal, left and right buttock. #2 Right upper chest skin tear with partial thickness skin loss. Recommendation -Local wound care per protocol -Offload both heels -Heel protector on both heels -Optimize nutrition -Keep clean and dry -Turn and reposition -Low air loss mattress -Assess and f/u accordingly for any changes MALIK GREGG RN Dec 18, 2016 17:23
--- NOTE | 2016-12-18 17:23 | Wound Care Consultation ---
Wound Assessment Wound Assessment #1: Wound Number: 1 Wound Present on Admission: Yes New Wound: No Status Change of Wound: No Wound Location Body Site Modif: mid Wound Location Body Site: other - Sacrococcygeal, right and left buttock Wound Type: pressure ulcer Fahad Test: Does not Fahad Pressure Ulcer Stage: II - scattered Wound Thickness: Partial Thickness Percent of Wound [place]/Red: 100 Wound Drainage Description: Serosanguineous Wound Drainage Amount: Scant Wound Drainage Odor: None/Absent Tissue Surrounding Wound: Macerated Wound General Appearance: Reddened, Draining Wound Assessment #2: Wound Number: 2 Wound Present on Admission: Yes New Wound: No Status Change of Wound: No Wound Location Body Site Modif: right, upper Wound Location Body Site: chest Wound Type: traumatic injury Fahad Test: Does not Fahad Wound Thickness: Partial Thickness Wound Length: 2.0 Wound Width: 5.0 Wound Depth: 0.1 Percent of Wound [place]/Red: 100 Wound Drainage Description: Serosanguineous Wound Drainage Amount: Scant Wound Drainage Odor: None/Absent Tissue Surrounding Wound: Erythemic Wound General Appearance: Reddened, Draining Wound Comment #1 Extensive scattered stage II pressure ulcer on Sacrococcygeal, left and right buttock. #2 Right upper chest skin tear with partial thickness skin loss. Recommendation -Local wound care per protocol -Offload both heels -Heel protector on both heels -Optimize nutrition -Keep clean and dry -Turn and reposition -Low air loss mattress -Assess and f/u accordingly for any changes MALIK GREGG RN Dec 18, 2016 17:23
--- NOTE | 2016-12-18 17:23 | Wound Care Consultation ---
Wound Assessment Wound Assessment #1: Wound Number: 1 Wound Present on Admission: Yes New Wound: No Status Change of Wound: No Wound Location Body Site Modif: mid Wound Location Body Site: other - Sacrococcygeal, right and left buttock Wound Type: pressure ulcer Fahad Test: Does not Fahad Pressure Ulcer Stage: II - scattered Wound Thickness: Partial Thickness Percent of Wound [place]/Red: 100 Wound Drainage Description: Serosanguineous Wound Drainage Amount: Scant Wound Drainage Odor: None/Absent Tissue Surrounding Wound: Macerated Wound General Appearance: Reddened, Draining Wound Assessment #2: Wound Number: 2 Wound Present on Admission: Yes New Wound: No Status Change of Wound: No Wound Location Body Site Modif: right, upper Wound Location Body Site: chest Wound Type: traumatic injury Fahad Test: Does not Fahad Wound Thickness: Partial Thickness Wound Length: 2.0 Wound Width: 5.0 Wound Depth: 0.1 Percent of Wound [place]/Red: 100 Wound Drainage Description: Serosanguineous Wound Drainage Amount: Scant Wound Drainage Odor: None/Absent Tissue Surrounding Wound: Erythemic Wound General Appearance: Reddened, Draining Wound Comment #1 Extensive scattered stage II pressure ulcer on Sacrococcygeal, left and right buttock. #2 Right upper chest skin tear with partial thickness skin loss. Recommendation -Local wound care per protocol -Offload both heels -Heel protector on both heels -Optimize nutrition -Keep clean and dry -Turn and reposition -Low air loss mattress -Assess and f/u accordingly for any changes MALIK GERGG RN Dec 18, 2016 17:23
--- NOTE | 2016-12-18 18:00 | Cardiology Report ---
APPROVED REPORT EKG Measurement Heart [id number] 174P-7 [id number] Sinus tachycardia Left axis deviation Septal infarct, age undetermined Abnormal ECG
--- NOTE | 2016-12-18 18:00 | Cardiology Report ---
APPROVED REPORT EKG Measurement Heart [id number]-7 [id number] Sinus tachycardia Left axis deviation Septal infarct, age undetermined Abnormal ECG
--- NOTE | 2016-12-18 18:00 | Cardiology Report ---
APPROVED REPORT EKG Measurement Heart [id number] 174P-7 [id number] Sinus tachycardia Left axis deviation Septal infarct, age undetermined Abnormal ECG
--- NOTE | 2016-12-18 18:01 | Consultation ---
History of Present Illness General Date patient seen: Dec 18, 2016 Time patient seen: 18:00 Chief Complaint: Dyspnea/Respdistress Reason for Consultation: possible pna, leukocytosis Present Illness HPI 66 y/o F with hx of COPD and chronic tracheostomy, CHF, spinal fusion, DVT, s/ p hip surgery, chronic pain, [place] [facility] resident presents to ED on 12/17 with left sided CP and SOB. Also non productive cough. In ED, patient;s trach was found to be malpositioned s/p repositioned by ED physician. Respiratory status was reported to be back to normal after reposition of trach. Denies n/v, f/c. Patient afebrile. Had leukocytosuis up to 16, now improving. CXR with non specific interstitial opacities started on IV vanco and Cefepime. Allergies: Coded Allergies: ACETAMINOPHEN (Unverified Allergy, Unknown, 12/17/16) CODEINE (Unverified Allergy, Unknown, 03/04/14) IODINE (Unverified Allergy, Unknown, 12/17/16) Medication History Scheduled Ascorbic Acid* (Ascorbic Acid*), 500 MG GT TWICE A DAY, (Reported) Calcium Carbonate/Vitamin D3 (Calcium 500 + Vit D 200 Caplet), 1 EACH GT DAILY, (Reported) Cholecalciferol (Vitamin D3)* (Vitamin D*), 1,000 UNIT GT DAILY, (Reported) Digoxin* (Digoxin*), 0.25 MG GT DAILY, (Reported) Docusate Sodium* (Docusate Sodium*), 100 MG GT TWICE A DAY, (Reported) Folic Acid* (Folic Acid*), 1 MG ESINUS DAILY, (Reported) Gabapentin* (Gabapentin*), 200 MG GT THREE TIMES A DAY, (Reported) Hydroxyzine Hcl (Hydroxyzine Hcl), 25 MG GT BID, (Reported) Ipratropium/Albuterol Sulfate (DuoNeb 0.5-3(2.5)mg/3ml), 3 ML [id number] EVERY 2 HOURS, (Reported) Levothyroxine Sodium* (Levothyroxine Sodium*), 75 MCG GT DAILY, (Reported) Lorazepam* (Lorazepam*), 1 MG GT EVERY 6 HOURS, (Reported) Metoclopramide Hcl* (Metoclopramide Hcl*), 5 MG GT EVERY 6 HOURS, (Reported) Mirtazapine* (Mirtazapine*), 7.5 MG GT BEDTIME, (Reported) Pantoprazole Sodium (Protonix), 40 MG GT DAILY, (Reported) Pioglitazone Hcl* (Actos*), 15 MG GT DAILY, (Reported) Topiramate (Topamax), 200 MG GT EVERY 12 HOURS, (Reported) Zinc Sulfate (Zinc Sulfate*), 220 MG GT DAILY, (Reported) [Hydromorphone Liq], 1 MG GT EVERY 2 HOURS, (Reported) Scheduled PRN Ondansetron* (Zofran*), 4 MG GT Q6H PRN for Nausea & Vomiting, (Reported) Tramadol Hcl* (Ultram*), 50 MG GT Q6H PRN for For Pain, (Reported) Patient History Healthcare decision maker Resuscitation status Full Code Advanced Directive on File Patient History Narrative as above Family history: not relevant to ID history Social history:unable to obtain given dementia Review of Systems ROS Narrative unable to obtain given dementia Physical Exam Physical Exam Narrative General Appearance: WD/WN, frail Lines, tubes and drains: peripheral, gtube HEENT: normocephalic, atraumatic Neck: non-tender, normal alignment Respiratory/Chest: chest wall non-tender, lungs clear Cardiovascular/Chest: normal peripheral pulses, normal rate Abdomen: normal bowel sounds, non tender Genitourinary/Rectal: normal genital exam, normal rectal exam Extremities: normal range of motion, non-tender Last 24 Hour Vital Signs Date Time Temp Pulse Resp B/P (MAP) Pulse Ox O2 Delivery O2 Flow Rate FiO2 12/18/16 12:00 87 12/18/16 12:00 97.7 90 21 134/72 92 T-piece 35 12/18/16 09:36 106 12/18/16 08:00 85 12/18/16 08:00 93 T-piece 10.0 35 12/18/16 08:00 T-piece 10.0 35 12/18/16 08:00 96.4 88 24 129/73 94 T-piece 35 12/18/16 04:00 94 12/18/16 03:56 97.6 93 20 110/63 92 Venturi Mask 12/18/16 01:40 98 26 114/62 97 Trach Collar 10.0 12/18/16 01:35 98 26 114/62 97 Trach Collar 10.0 12/18/16 00:32 97.0 105 24 112/77 94 Trach Collar 10.0 12/17/16 23:00 98 T-piece 10.0 35 12/17/16 23:00 T-piece 10.0 35 12/17/16 22:51 99.5 108 20 148/81 93 Trach Collar 10.0 12/17/16 22:39 97.3 12/17/16 22:05 112 20 99 T-piece 10.0 45 12/17/16 22:04 108 20 98 T-piece 10.0 45 12/17/16 21:33 104 28 Trach Collar 6.0 12/17/16 21:13 97.3 104 28 143/82 89 Trach Collar 6.0 Intake and Output 12/18/16 12/19/16 19:00 07:00 Intake Total 130 ml Balance 130 ml Intake Free Water 30 ml Tube Feeding 100 ml Laboratory Tests Test 12/17/16 22:00 12/18/16 07:50 White Blood Count 16.2 K/UL (4.8-10.8) H 15.9 K/UL (4.8-10.8) H Red Blood Count 4.72 M/UL (4.20-5.40) 4.30 M/UL (4.20-5.40) Hemoglobin 12.8 G/DL (12.0-16.0) 12.8 G/DL (12.0-16.0) Hematocrit 45.0 % (37.0-47.0) 40.4 % (37.0-47.0) Mean Corpuscular Volume 95 FL (80-99) 94 FL (80-99) Mean Corpuscular Hemoglobin 27.2 PG (27.0-31.0) 29.7 PG (27.0-31.0) Mean Corpuscular Hemoglobin Concent 28.5 G/DL (32.0-36.0) L 31.6 G/DL (32.0-36.0) L Red Cell Distribution Width 16.9 % (11.6-14.8) H 16.1 % (11.6-14.8) H Platelet Count 442 K/UL (150-450) 453 K/UL (150-450) H Mean Platelet Volume 7.2 FL (6.5-10.1) 8.2 FL (6.5-10.1) Neutrophils (%) (Auto) 62.3 % (45.0-75.0) 78.0 % (45.0-75.0) H Lymphocytes (%) (Auto) 28.1 % (20.0-45.0) 16.7 % (20.0-45.0) L Monocytes (%) (Auto) 4.4 % (1.0-10.0) 4.3 % (1.0-10.0) Eosinophils (%) (Auto) 3.4 % (0.0-3.0) H 0.1 % (0.0-3.0) Basophils (%) (Auto) 1.7 % (0.0-2.0) 0.9 % (0.0-2.0) Prothrombin Time 9.6 SEC (9.30-11.50) Prothromb Time International Ratio 0.9 (0.9-1.1) Activated Partial Thromboplast Time 28 SEC (23-33) Urine Color Yellow Urine Appearance Slightly cloudy Urine pH 7 (4.5-8.0) Urine Specific [place] 1.005 (1.005-1.035) Urine Protein 2+ (NEGATIVE) H Urine Glucose (UA) Negative (NEGATIVE) Urine Ketones Negative (NEGATIVE) Urine Occult Blood 2+ (NEGATIVE) H Urine Nitrite Negative (NEGATIVE) Urine Bilirubin Negative (NEGATIVE) Urine Urobilinogen 1 MG/DL (0.0-1.0) H Urine Leukocyte Esterase 3+ (NEGATIVE) H Urine RBC 5-10 /HPF (0 - 2) H Urine WBC 2-4 /HPF (0 - 2) Urine Squamous Epithelial Cells Few /LPF (NONE/OCC) Urine Bacteria Few /HPF (NONE) Sodium Level 139 mEQ/L (135-145) 138 mEQ/L (135-145) Potassium Level 4.6 mEQ/L (3.4-4.9) 4.7 mEQ/L (3.4-4.9) Chloride Level 102 mEQ/L (98-107) 103 mEQ/L (98-107) Carbon Dioxide Level 26 mEQ/L (20-30) 24 mEQ/L (20-30) Anion Gap 11 (5-15) 11 (5-15) Blood Urea Nitrogen 21 mg/dL (7-23) 17 mg/dL (7-23) Creatinine 0.5 mg/dL (0.5-0.9) 0.4 mg/dL (0.5-0.9) L Estimat Glomerular Filtration Rate > 60 mL/min (>60) > 60 mL/min (>60) Glucose Level 141 mg/dL (74-106) H 121 mg/dL (74-106) H Lactic Acid Level 1.10 mmol/L (0.66-2.22) Calcium Level 9.8 mg/dL (8.6-10.2) 9.6 mg/dL (8.6-10.2) Total Bilirubin 0.2 mg/dL (0.0-1.2) Aspartate Amino Transf (AST/SGOT) 21 U/L (5-40) Alanine Aminotransferase (ALT/SGPT) 10 U/L (3-33) Alkaline Phosphatase 112 U/L (35-104) H Total Creatine Kinase 23 U/L (26-140) L Creatine Kinase MB 3.5 ng/mL (< 3.8) Creatine Kinase MB Relative Index 15.2 Troponin I < 0.30 ng/mL (<=0.30) Pro-B-Type Natriuretic Peptide 454 pg/mL (0-125) H Total Protein 6.9 g/dL (6.6-8.7) Albumin 3.2 g/dL (3.5-5.2) L 2.9 g/dL (3.5-5.2) L Globulin 3.7 g/dL Albumin/Globulin Ratio 0.8 (1.0-2.7) L Phosphorus Level 3.9 mg/dL (2.5-4.8) Height (Feet): 5 Height (Inches): 7.00 Weight (Pounds): 126 Medications Current Medications Medications (Trade) Dose Ordered Sig/Sandra Route PRN Reason Start Time Stop Time Status Last Admin Dose Admin Al Hydroxide/Mg Hydroxide (Mylanta II) 30 ml Q6H PRN GT dyspepsia 12/17/16 23:15 01/16/17 23:14 Albuterol/ Ipratropium (DuoNeb 0.5-3(2.5)mg/3ml) 3 ml Q4H PRN HHN Shortness of Breath 12/17/16 23:15 12/22/16 23:14 Cefepime HCl 1 gm/ Dextrose 55 ml @ 110 mls/hr Q12H IV 12/18/16 06:00 12/25/16 05:59 12/18/16 17:56 Dextrose (Dextrose 50%) STAT PRN IV Hypoglycemia 12/17/16 23:15 01/16/17 23:14 Digoxin (Lanoxin) 0.25 mg DAILY GT 12/18/16 09:30 01/17/17 09:29 12/18/16 09:36 Gabapentin (Neurontin) 200 mg THREE TIMES A DAY GT 12/18/16 09:00 01/17/17 08:59 12/18/16 17:56 Heparin Sodium (Porcine) (Heparin 5000 units/ml) 5,000 units EVERY 12 HOURS SUBQ 12/18/16 09:00 01/17/17 08:59 12/18/16 09:37 Hydroxyzine HCl (Atarax) 25 mg BID GT 12/18/16 09:00 01/17/17 08:59 12/18/16 17:57 Insulin Aspart (NovoLOG) BEFORE MEALS AND HS SUBQ 12/18/16 06:30 01/17/17 06:29 Levothyroxine Sodium (Synthroid) 75 mcg DAILY@0630 GT 12/18/16 06:30 01/17/17 06:29 12/18/16 06:21 Mirtazapine (Remeron) 7.5 mg BEDTIME GT 12/18/16 21:00 01/17/17 20:59 Morphine Sulfate (Morphine Sulfate) 2 mg Q4H PRN IVP For Pain 12/18/16 09:15 12/25/16 09:14 12/18/16 14:01 Nitroglycerin (Ntg) 0.4 mg Q5M PRN SL Prn Chest Pain 12/17/16 23:15 01/16/17 23:14 Ondansetron HCl (Zofran) 4 mg Q6H PRN IVP Nausea & Vomiting 12/17/16 23:15 01/16/17 23:14 Pioglitazone HCl (Actos) 15 mg DAILY GT 12/18/16 09:30 01/17/17 09:29 12/18/16 14:05 Polyethylene Glycol (Miralax) 17 gm DAILYPRN PRN ORAL Constipation 12/17/16 23:15 01/16/17 23:14 Temazepam (Restoril) 15 mg HSPRN PRN GT Insomnia 12/17/16 23:15 12/24/16 23:14 Vancomycin HCl (Vanco rx to dose) 1 ea DAILY PRN MISC Per rx protocol 12/17/16 23:15 01/16/17 23:14 Vancomycin/Sodium Chloride 250 ml @ 167.007 mls/hr Q8H IVPB 12/18/16 12:00 12/23/16 11:59 12/18/16 14:06 Assessment/Plan Assessment/Plan Abx: IV Vanco/Cefepime 12/18- Levaquin x1 12/17 Assesment: SOB- likely related to malpositioned trach +/- ?PNA Possible PNA -CXR: Interstitial disease nonspecific. CHF, pneumonitis not excluded -spu cx pending Leukocytosis- ?reactive vs 2ry to PNA vs combination- improving -Bcx pendiing -u/a WBC 2-4 COPD and chronic tracheostomy, CHF, spinal fusion, DVT, s/p hip surgery, chronic pain, [place] [facility] resident Plan: -Transition Vancomycin and Cefepime to IV Ceftriaxone and Azithromcyin (abx /) -upon discharge can be transition to Levaquin or Cefpodoxime/Cefdinir + Azithromycin -f/u Bcx, sp cx -Monitor CBC/BMP, temperatures -trach care -Aspiration precautions. Thank you for this consultation. WIll continue to follow along with you. Discussed with Lisa Potts M.D. Dec 18, 2016 18:01
[2016-12-18] MEDS: Azithromycin 250mg tab ORAL SCH (20:47)
[2016-12-19] VITALS: BP 118/71
[2016-12-19] MEDS: Morphine Sulfate 2mg/ml Inj IVP PRN ×5 (01:09→20:04)
[2016-12-19 04:00] VITALS: BP 110/59
[2016-12-19] MEDS ORDERED: cefTRIAXone 1 GM in D5W 55 ML IVPB SCH (06:00)
[2016-12-19] MEDS: NovoLOG Insulin Flexpen SUBQ SCH ×4 (06:10→21:00)
[2016-12-19 08:14] VITALS: BP 109/56
--- NOTE | 2016-12-19 08:47 | Consultation ---
DATE OF CONSULTATION: 12/18/2016 CARDIOLOGY CONSULTATION REFERRING PHYSICIAN: Quincy Herrera M.D. REASON FOR REFERRAL: Shortness of breath. History of Present Illness: This is a very unfortunate elderly female, who was brought to the emergency room at [facility] with chief complaint of chest pain and shortness of breath. Apparently, according to the emergency room physician for the past few days, had pain in the left side of the chest, apparently sharp in nature. No vomiting or diarrhea. The patient was admitted to the hospital. This consultation requested. On my questioning, the patient denies any chest pains 00:34 shortness of breath. No PND or orthopnea, but she does indicate she does wake up at night because of shortness of breath. She does not really walk or stand. No palpitation is noted. Information is from the records. The patient was found through the emergency room, the records as well as from review of the patient's chart, it was felt that the patient had an acute on chronic respiratory issue secondary to malfunction of the tracheostomy tube and appears that when she first presented to the emergency room because of that issue, the replacement tracheostomy tube was accomplished and because breathing treatment oxygenation were not successful, the respiratory therapist indicated that the tracheostomy tube was apparently custodial out and they were unable to put the tube back in and the tube was subsequently removed. Noticed that the membrane is already almost completely closed. Lead Software Test Engineer used Shiley and dilated the opening. Tracheostomy tube was placed back in and she was feeling better. So at this time, she is feeling much better than she did last night. The records from [facility] have been reviewed. The patient with a history of alcoholic intoxication and drug usage and psychiatric disorder according to [facility] records as well as COPD, deep venous thrombosis, homelessness and history of spinal fusion, hypothyroidism and hip surgery according to [facility] records. Past Medical History: Please mention as a convalescent facility records indicate the patient also has history of congestive heart failure as well as pyelonephritis and interstitial nephritis as well. Allergies: Acetaminophen, codeine and iodoform apparently noted on the records from caregiver from [facility]. Social History: She has been smoking and she does however apparently has a history of alcoholic intake and drug abuse according to [facility] records. Review Of Systems: Gastrointestinal: She does admit to having some abdominal pain. No nausea or vomiting. No diarrhea. No constipation. Genitourinary: She has a Driscoll catheter. Pulmonary: She does have some coughing and congestion apparently. Neurological: She has numbness and weakness she has had lower extremities and some tingling sensation. PHYSICAL EXAMINATION: General: Shows to be elderly female, in no respiratory distress. She has a trach with a G-tube in place, 03:[address] and getting oxygenation. She appears to be quite comfortable. NECK: Supple. Lungs: Otherwise lungs, there are some crackles noted at the left base. CARDIAC: Regular rate and rhythm. No heaves. No thrills noted. Abdomen: Soft. There is some tenderness to deep palpation. No guarding. No rigidity. Extremities: There is no clubbing, cyanosis, nor is there any edema. She seems to be able to move all four extremities on command. Laboratory And Diagnostic Data: Her laboratories, white count of 15.9 with hemoglobin 12.8, and platelet count of 453. Sodium is 130, potassium 4.7, chloride 102, bicarbonate 24, BUN of 17, creatinine 0.4 and glucose of 121. Troponin less than 0.3 yesterday and proBNP is 4054 only. Albumin of 2.9. Coagulations, INR 0.9 and PTT of 26. Urinalysis shows 5 to 10 RBCs, 3+ leukocyte esterase, and 2 to 4 WBCs. Chest x-ray shows interstitial disease nonspecific congestive heart failure and pneumonitis not entirely excluded. The patient's telemetry data shows sinus rhythm. No pauses. EKG shows sinus tachycardia at the rate of 167. She has some delay in R-wave progression. She has two S-waves in V1 through V3 suggestive of possibly old septal infarction, in direct comparison two S-waves in V2 and V3 appeared to be new compared to [facility] back in September 2006. ASSESSMENT AND PLAN: 1. Dyspnea secondary to tracheostomy tube malfunction, now replaced. 2. Chronic tracheostomy tube. 3. Abnormal electrocardiogram, new since September 2016 without symptoms of coronary syndrome. 4. History of hypothyroidism. 5. History of deep venous thrombosis. 6. History of chronic obstructive pulmonary disease. 7. History of hip surgery. Dr. Herrera, this patient was seen in cardiac consultation. The patient indicates shortness of breath. There is no shortness of breath at the present time, certainly was having some issues with the trach as appears per note of emergency physician. Her electrocardiogram is somewhat different indicating an old injury pattern in the septal area compared to the EKG from 2017, however, the chronicity of this change is really not known only present from two and half months ago to the present time. At this time, she has no signs or symptoms of coronary syndrome. Her cardiac enzymes are negative. Her respirations are back to normal and I think discharge planning as per your own discretion. From the respiratory point of view, no further cardiac workup is deemed necessary at the present time. Chris Elias M.D. DR: GEMINI JOB#: [id number] CC:
--- NOTE | 2016-12-19 08:47 | Consultation ---
DATE OF CONSULTATION: 12/18/2016 CARDIOLOGY CONSULTATION REFERRING PHYSICIAN: Quincy Herrera M.D. REASON FOR REFERRAL: Shortness of breath. History of Present Illness: This is a very unfortunate elderly female, who was brought to the emergency room at [facility] with chief complaint of chest pain and shortness of breath. Apparently, according to the emergency room physician for the past few days, had pain in the left side of the chest, apparently sharp in nature. No vomiting or diarrhea. The patient was admitted to the hospital. This consultation requested. On my questioning, the patient denies any chest pains 00:34 shortness of breath. No PND or orthopnea, but she does indicate she does wake up at night because of shortness of breath. She does not really walk or stand. No palpitation is noted. Information is from the records. The patient was found through the emergency room, the records as well as from review of the patient's chart, it was felt that the patient had an acute on chronic respiratory issue secondary to malfunction of the tracheostomy tube and appears that when she first presented to the emergency room because of that issue, the replacement tracheostomy tube was accomplished and because breathing treatment oxygenation were not successful, the respiratory therapist indicated that the tracheostomy tube was apparently senior living out and they were unable to put the tube back in and the tube was subsequently removed. Noticed that the membrane is already almost completely closed. Injection Specialist used Shiley and dilated the opening. Tracheostomy tube was placed back in and she was feeling better. So at this time, she is feeling much better than she did last night. The records from [facility] have been reviewed. The patient with a history of alcoholic intoxication and drug usage and psychiatric disorder according to [facility] records as well as COPD, deep venous thrombosis, homelessness and history of spinal fusion, hypothyroidism and hip surgery according to [facility] records. Past Medical History: Please mention as a convalescent facility records indicate the patient also has history of congestive heart failure as well as pyelonephritis and interstitial nephritis as well. Allergies: Acetaminophen, codeine and iodoform apparently noted on the records from caregiver from [facility]. Social History: She has been smoking and she does however apparently has a history of alcoholic intake and drug abuse according to [facility] records. Review Of Systems: Gastrointestinal: She does admit to having some abdominal pain. No nausea or vomiting. No diarrhea. No constipation. Genitourinary: She has a Driscoll catheter. Pulmonary: She does have some coughing and congestion apparently. Neurological: She has numbness and weakness she has had lower extremities and some tingling sensation. PHYSICAL EXAMINATION: General: Shows to be elderly female, in no respiratory distress. She has a trach with a G-tube in place, 03:[address] and getting oxygenation. She appears to be quite comfortable. NECK: Supple. Lungs: Otherwise lungs, there are some crackles noted at the left base. CARDIAC: Regular rate and rhythm. No heaves. No thrills noted. Abdomen: Soft. There is some tenderness to deep palpation. No guarding. No rigidity. Extremities: There is no clubbing, cyanosis, nor is there any edema. She seems to be able to move all four extremities on command. Laboratory And Diagnostic Data: Her laboratories, white count of 15.9 with hemoglobin 12.8, and platelet count of 453. Sodium is 130, potassium 4.7, chloride 102, bicarbonate 24, BUN of 17, creatinine 0.4 and glucose of 121. Troponin less than 0.3 yesterday and proBNP is 4054 only. Albumin of 2.9. Coagulations, INR 0.9 and PTT of 26. Urinalysis shows 5 to 10 RBCs, 3+ leukocyte esterase, and 2 to 4 WBCs. Chest x-ray shows interstitial disease nonspecific congestive heart failure and pneumonitis not entirely excluded. The patient's telemetry data shows sinus rhythm. No pauses. EKG shows sinus tachycardia at the rate of 167. She has some delay in R-wave progression. She has two S-waves in V1 through V3 suggestive of possibly old septal infarction, in direct comparison two S-waves in V2 and V3 appeared to be new compared to [facility] back in September 2006. ASSESSMENT AND PLAN: 1. Dyspnea secondary to tracheostomy tube malfunction, now replaced. 2. Chronic tracheostomy tube. 3. Abnormal electrocardiogram, new since September 2016 without symptoms of coronary syndrome. 4. History of hypothyroidism. 5. History of deep venous thrombosis. 6. History of chronic obstructive pulmonary disease. 7. History of hip surgery. Dr. Herrera, this patient was seen in cardiac consultation. The patient indicates shortness of breath. There is no shortness of breath at the present time, certainly was having some issues with the trach as appears per note of emergency physician. Her electrocardiogram is somewhat different indicating an old injury pattern in the septal area compared to the EKG from 2017, however, the chronicity of this change is really not known only present from two and half months ago to the present time. At this time, she has no signs or symptoms of coronary syndrome. Her cardiac enzymes are negative. Her respirations are back to normal and I think discharge planning as per your own discretion. From the respiratory point of view, no further cardiac workup is deemed necessary at the present time. Chris Elias M.D. DR: GEMINI JOB#: [id number] CC:
--- NOTE | 2016-12-19 08:47 | Consultation ---
DATE OF CONSULTATION: 12/18/2016 CARDIOLOGY CONSULTATION REFERRING PHYSICIAN: Quincy Herrera M.D. REASON FOR REFERRAL: Shortness of breath. History of Present Illness: This is a very unfortunate elderly female, who was brought to the emergency room at [facility] with chief complaint of chest pain and shortness of breath. Apparently, according to the emergency room physician for the past few days, had pain in the left side of the chest, apparently sharp in nature. No vomiting or diarrhea. The patient was admitted to the hospital. This consultation requested. On my questioning, the patient denies any chest pains 00:34 shortness of breath. No PND or orthopnea, but she does indicate she does wake up at night because of shortness of breath. She does not really walk or stand. No palpitation is noted. Information is from the records. The patient was found through the emergency room, the records as well as from review of the patient's chart, it was felt that the patient had an acute on chronic respiratory issue secondary to malfunction of the tracheostomy tube and appears that when she first presented to the emergency room because of that issue, the replacement tracheostomy tube was accomplished and because breathing treatment oxygenation were not successful, the respiratory therapist indicated that the tracheostomy tube was apparently long-term out and they were unable to put the tube back in and the tube was subsequently removed. Noticed that the membrane is already almost completely closed. Ventilation Worker used Shiley and dilated the opening. Tracheostomy tube was placed back in and she was feeling better. So at this time, she is feeling much better than she did last night. The records from [facility] have been reviewed. The patient with a history of alcoholic intoxication and drug usage and psychiatric disorder according to [facility] records as well as COPD, deep venous thrombosis, homelessness and history of spinal fusion, hypothyroidism and hip surgery according to [facility] records. Past Medical History: Please mention as a convalescent facility records indicate the patient also has history of congestive heart failure as well as pyelonephritis and interstitial nephritis as well. Allergies: Acetaminophen, codeine and iodoform apparently noted on the records from caregiver from [facility]. Social History: She has been smoking and she does however apparently has a history of alcoholic intake and drug abuse according to [facility] records. Review Of Systems: Gastrointestinal: She does admit to having some abdominal pain. No nausea or vomiting. No diarrhea. No constipation. Genitourinary: She has a Driscoll catheter. Pulmonary: She does have some coughing and congestion apparently. Neurological: She has numbness and weakness she has had lower extremities and some tingling sensation. PHYSICAL EXAMINATION: General: Shows to be elderly female, in no respiratory distress. She has a trach with a G-tube in place, 03:[address] and getting oxygenation. She appears to be quite comfortable. NECK: Supple. Lungs: Otherwise lungs, there are some crackles noted at the left base. CARDIAC: Regular rate and rhythm. No heaves. No thrills noted. Abdomen: Soft. There is some tenderness to deep palpation. No guarding. No rigidity. Extremities: There is no clubbing, cyanosis, nor is there any edema. She seems to be able to move all four extremities on command. Laboratory And Diagnostic Data: Her laboratories, white count of 15.9 with hemoglobin 12.8, and platelet count of 453. Sodium is 130, potassium 4.7, chloride 102, bicarbonate 24, BUN of 17, creatinine 0.4 and glucose of 121. Troponin less than 0.3 yesterday and proBNP is 4054 only. Albumin of 2.9. Coagulations, INR 0.9 and PTT of 26. Urinalysis shows 5 to 10 RBCs, 3+ leukocyte esterase, and 2 to 4 WBCs. Chest x-ray shows interstitial disease nonspecific congestive heart failure and pneumonitis not entirely excluded. The patient's telemetry data shows sinus rhythm. No pauses. EKG shows sinus tachycardia at the rate of 167. She has some delay in R-wave progression. She has two S-waves in V1 through V3 suggestive of possibly old septal infarction, in direct comparison two S-waves in V2 and V3 appeared to be new compared to [facility] back in September 2006. ASSESSMENT AND PLAN: 1. Dyspnea secondary to tracheostomy tube malfunction, now replaced. 2. Chronic tracheostomy tube. 3. Abnormal electrocardiogram, new since September 2016 without symptoms of coronary syndrome. 4. History of hypothyroidism. 5. History of deep venous thrombosis. 6. History of chronic obstructive pulmonary disease. 7. History of hip surgery. Dr. Herrera, this patient was seen in cardiac consultation. The patient indicates shortness of breath. There is no shortness of breath at the present time, certainly was having some issues with the trach as appears per note of emergency physician. Her electrocardiogram is somewhat different indicating an old injury pattern in the septal area compared to the EKG from 2017, however, the chronicity of this change is really not known only present from two and half months ago to the present time. At this time, she has no signs or symptoms of coronary syndrome. Her cardiac enzymes are negative. Her respirations are back to normal and I think discharge planning as per your own discretion. From the respiratory point of view, no further cardiac workup is deemed necessary at the present time. Chris Elias M.D. DR: GEMINI JOB#: [id number] CC:
[2016-12-19] MEDS: Heparin 5000 units/ml inj SUBQ SCH ×2 (09:00→20:43)
[2016-12-19] MEDS ORDERED: Dyna-Hex 2% Top Sol 2oz TOPIC SCH (09:00)
[2016-12-19] MEDS: HydrOXYzine 25mg tab GT SCH ×2 (10:10→18:25)
[2016-12-19] MEDS: Azithromycin 250mg tab ORAL SCH (10:12)
[2016-12-19 11:21] VITALS: BP 120/68
--- NOTE | 2016-12-19 11:28 | Pulmonology Progress Note ---
Assessment/Plan Problems: (1) Purulent bronchitis (2) Acute and chronic respiratory failure ([id number]) (3) Tracheostomy malfunction (4) COPD (chronic obstructive pulmonary disease) (5) Interstitial lung disease (6) Diabetes mellitus (7) Hypothyroidism Assessment/Plan iv abx respiratory treatment check sputum psych evaluation all notes reviewed cardiology note appreciated. Subjective ROS Limited/Unobtainable: No Constitutional: Reports: no symptoms HEENT: Repors: no symptoms Respiratory: Reports: no symptoms Allergies: Coded Allergies: ACETAMINOPHEN (Unverified Allergy, Unknown, 12/17/16) CODEINE (Unverified Allergy, Unknown, 03/04/14) IODINE (Unverified Allergy, Unknown, 12/17/16) Objective Last 24 Hour Vital Signs Date Time Temp Pulse Resp B/P (MAP) Pulse Ox O2 Delivery O2 Flow Rate FiO2 12/19/16 10:12 71 12/19/16 08:14 96.4 86 22 109/56 92 T-piece 28 12/19/16 06:33 68 18 8.0 35 12/19/16 06:33 92 T-piece 8.0 35 12/19/16 06:33 T-piece 8.0 35 12/19/16 04:11 78 12/19/16 04:00 96.6 81 24 110/59 90 Room Air 12/19/16 00:00 97.7 85 23 118/71 91 Room Air 12/18/16 23:59 88 12/18/16 20:00 97.5 79 22 112/66 91 Room Air 12/18/16 20:00 75 12/18/16 19:00 97 T-piece 8.0 35 12/18/16 19:00 62 18 8.0 35 12/18/16 19:00 T-piece 8.0 35 12/18/16 16:00 77 12/18/16 16:00 97.7 77 20 141/76 93 T-piece 35 12/18/16 12:00 87 12/18/16 12:00 97.7 90 21 134/72 92 T-piece 35 General Appearance: WD/WN HEENT: normocephalic, atraumatic Respiratory/Chest: chest wall non-tender, lungs clear, normal breath sounds Breasts: no masses Cardiovascular: normal peripheral pulses, no JVD Abdomen: normal bowel sounds, soft, non tender Genitourinary: normal external genitalia Extremities: no cyanosis, no clubbing Skin: no rash 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 Lymphatic: no neck adenopathy Microbiology Date/Time Source Procedure Growth Status 12/17/16 22:00 Blood Blood Culture - Preliminary NO GROWTH AFTER 24 HOURS Resulted 12/17/16 21:45 Blood Blood Culture - Preliminary NO GROWTH AFTER 24 HOURS Resulted Current Medications Medications (Trade) Dose Ordered Sig/Sandra Route PRN Reason Start Time Stop Time Status Last Admin Dose Admin Al Hydroxide/Mg Hydroxide (Mylanta II) 30 ml Q6H PRN GT dyspepsia 12/17/16 23:15 01/16/17 23:14 Albuterol/ Ipratropium (DuoNeb 0.5-3(2.5)mg/3ml) 3 ml Q4H PRN HHN Shortness of Breath 12/17/16 23:15 12/22/16 23:14 Azithromycin (Zithromax) 500 mg QPM ORAL 12/18/16 19:00 12/25/16 18:59 12/19/16 10:12 Ceftriaxone Sodium 1 gm/ Dextrose 55 ml @ 110 mls/hr Q24H IVPB 12/19/16 06:00 12/26/16 05:59 12/19/16 05:22 Chlorhexidine Gluconate (Chioma-Hex 2%) 1 applic DAILY TOPIC 12/19/16 09:00 01/18/17 08:59 12/19/16 10:15 Dextrose (Dextrose 50%) STAT PRN IV Hypoglycemia 12/17/16 23:15 01/16/17 23:14 Digoxin (Lanoxin) 0.25 mg DAILY GT 12/18/16 09:30 01/17/17 09:29 12/19/16 10:12 Gabapentin (Neurontin) 200 mg THREE TIMES A DAY GT 12/18/16 09:00 01/17/17 08:59 12/19/16 10:15 Heparin Sodium (Porcine) (Heparin 5000 units/ml) 5,000 units EVERY 12 HOURS SUBQ 12/18/16 09:00 01/17/17 08:59 12/19/16 09:00 Hydroxyzine HCl (Atarax) 25 mg BID GT 12/18/16 09:00 01/17/17 08:59 12/19/16 10:10 Insulin Aspart (NovoLOG) BEFORE MEALS AND HS SUBQ 12/18/16 06:30 01/17/17 06:29 12/19/16 06:10 Levothyroxine Sodium (Synthroid) 75 mcg DAILY@0630 GT 12/18/16 06:30 01/17/17 06:29 12/19/16 06:08 Mirtazapine (Remeron) 7.5 mg BEDTIME GT 12/18/16 21:00 01/17/17 20:59 12/18/16 20:48 Morphine Sulfate (Morphine Sulfate) 2 mg Q4H PRN IVP For Pain 12/18/16 09:15 12/25/16 09:14 12/19/16 10:18 Nitroglycerin (Ntg) 0.4 mg Q5M PRN SL Prn Chest Pain 12/17/16 23:15 01/16/17 23:14 Ondansetron HCl (Zofran) 4 mg Q6H PRN IVP Nausea & Vomiting 12/17/16 23:15 01/16/17 23:14 Pioglitazone HCl (Actos) 15 mg DAILY GT 12/18/16 09:30 01/17/17 09:29 12/19/16 09:00 Polyethylene Glycol (Miralax) 17 gm DAILYPRN PRN ORAL Constipation 12/17/16 23:15 01/16/17 23:14 Temazepam (Restoril) 15 mg HSPRN PRN GT Insomnia 12/17/16 23:15 12/24/16 23:14 DEDRICK SOLANO Dec 19, 2016 11:28
[2016-12-19] MEDS ORDERED: Gabapentin 300 MG/6 ML Soln GT SCH ×2 (14:00→14:30)
[2016-12-19 16:08] VITALS: BP 113/66
[2016-12-19] MEDS ORDERED: Nitroglycerin Subl 0.4mg tab SL PRN (17:20)
--- NOTE | 2016-12-19 17:24 | Infectious Diseases Prog Note ---
Assessment/Plan Assessment/Plan Assesment: SOB- likely related to malpositioned trach +/- ?PNA- improving Possible PNA -CXR: Interstitial disease nonspecific. CHF, pneumonitis not excluded -spu cx pending Leukocytosis- ?reactive vs 2ry to PNA vs combination- improving; no cbc today -Bcx NTD -u/a WBC 2-4 COPD and chronic tracheostomy, CHF, spinal fusion, DVT, s/p hip surgery, chronic pain, long term resident Plan: -Continue IV Ceftriaxone and Azithromcyin (abx 05/20) -s/p 1 d IV Vanco/Cefpime 12/18 -s/p 1d Levaquin 12/17 -upon discharge can be transition to Levaquin or Cefpodoxime/Cefdinir + Azithromycin -f/u Bcx, sp cx -Monitor CBC/BMP, temperatures; CBC am -trach care -Aspiration precautions. Thank you for this consultation. WIll continue to follow along with you. Discussed with RN. Subjective Allergies: Coded Allergies: ACETAMINOPHEN (Unverified Allergy, Unknown, 12/17/16) CODEINE (Unverified Allergy, Unknown, 03/04/14) IODINE (Unverified Allergy, Unknown, 12/17/16) Subjective afebrile feeling better Objective Vital Signs Last 24 Hour Vital Signs Date Time Temp Pulse Resp B/P (MAP) Pulse Ox O2 Delivery O2 Flow Rate FiO2 12/19/16 16:08 96.3 84 19 113/66 92 Mechanical Ventilator 5.0 12/19/16 14:21 77 12/19/16 13:30 96 T-piece 8.0 35 12/19/16 13:30 T-piece 8.0 35 12/19/16 11:21 96.1 81 23 120/68 99 T-piece 12/19/16 10:12 71 12/19/16 08:14 96.4 86 22 109/56 92 T-piece 28 12/19/16 06:33 68 18 8.0 35 12/19/16 06:33 92 T-piece 8.0 35 12/19/16 06:33 T-piece 8.0 35 12/19/16 04:11 78 12/19/16 04:00 96.6 81 24 110/59 90 Room Air 12/19/16 00:00 97.7 85 23 118/71 91 Room Air 12/18/16 23:59 88 12/18/16 20:00 97.5 79 22 112/66 91 Room Air 12/18/16 20:00 75 12/18/16 19:00 97 T-piece 8.0 35 12/18/16 19:00 62 18 8.0 35 12/18/16 19:00 T-piece 8.0 35 Height (Feet): 5 Height (Inches): 7.00 Weight (Pounds): 126 Objective General Appearance: WD/WN, frail Lines, tubes and drains: peripheral, gtube HEENT: normocephalic, atraumatic Neck: non-tender, normal alignment Respiratory/Chest: chest wall non-tender, lungs clear Cardiovascular/Chest: normal peripheral pulses, normal rate Abdomen: normal bowel sounds, non tender Genitourinary/Rectal: normal genital exam, normal rectal exam Extremities: normal range of motion, non-tender Microbiology Date/Time Source Procedure Growth Status 12/17/16 22:00 Blood Blood Culture - Preliminary NO GROWTH AFTER 24 HOURS Resulted 12/17/16 21:45 Blood Blood Culture - Preliminary NO GROWTH AFTER 24 HOURS Resulted reviewed Current Medications Medications (Trade) Dose Ordered Sig/Sandra Route PRN Reason Start Time Stop Time Status Last Admin Dose Admin Al Hydroxide/Mg Hydroxide (Mylanta II) 30 ml Q6H PRN GT dyspepsia 12/19/16 23:15 01/16/17 23:14 UNV Albuterol/ Ipratropium (DuoNeb 0.5-3(2.5)mg/3ml) 3 ml Q4H PRN HHN Shortness of Breath 12/19/16 19:15 12/22/16 23:14 UNV Azithromycin (Zithromax) 500 mg QPM ORAL 12/20/16 16:30 12/25/16 18:59 UNV Ceftriaxone Sodium 1 gm/ Dextrose 55 ml @ 110 mls/hr Q24H IVPB 12/20/16 06:00 12/26/16 05:59 UNV Chlorhexidine Gluconate (Chioma-Hex 2%) 1 applic DAILY TOPIC 12/20/16 09:00 01/18/17 08:59 UNV Dextrose (Dextrose 50%) STAT PRN IV Hypoglycemia 12/19/16 23:15 01/16/17 23:14 UNV Digoxin (Lanoxin) 0.25 mg DAILY GT 12/20/16 09:00 01/17/17 09:29 UNV Gabapentin (Neurontin) 300 mg TID GT 12/19/16 18:00 01/18/17 13:59 UNV Heparin Sodium (Porcine) (Heparin 5000 units/ml) 5,000 units EVERY 12 HOURS SUBQ 12/19/16 21:00 01/17/17 08:59 UNV Hydroxyzine HCl (Atarax) 25 mg BID GT 12/19/16 18:00 01/17/17 08:59 UNV Insulin Aspart (NovoLOG) BEFORE MEALS AND HS SUBQ 12/19/16 21:00 01/17/17 06:29 UNV Levothyroxine Sodium (Synthroid) 75 mcg DAILY@0630 GT 12/20/16 06:30 01/17/17 06:29 UNV Mirtazapine (Remeron) 7.5 mg BEDTIME GT 12/19/16 21:00 01/17/17 20:59 UNV Morphine Sulfate (Morphine Sulfate) 2 mg Q4H PRN IVP For Pain 12/19/16 21:15 12/25/16 09:14 UNV Nitroglycerin (Ntg) 0.4 mg Q5M PRN SL Prn Chest Pain 12/19/16 17:20 01/16/17 23:14 UNV Ondansetron HCl (Zofran) 4 mg Q6H PRN IVP Nausea & Vomiting 12/19/16 23:15 01/16/17 23:14 UNV Pioglitazone HCl (Actos) 15 mg DAILY GT 12/20/16 09:00 01/17/17 09:29 UNV Polyethylene Glycol (Miralax) 17 gm DAILYPRN PRN ORAL Constipation 12/19/16 23:15 01/16/17 23:14 UNV Temazepam (Restoril) 15 mg HSPRN PRN GT Insomnia 12/19/16 23:15 12/24/16 23:14 UNV Lisa Cartagena M.D. Dec 19, 2016 17:24
[2016-12-19] MEDS ORDERED: Albuterol/Ipratropium 3ml neb HHN PRN (17:30)
[2016-12-19] MEDS ORDERED: Miralax 17gm pkt ORAL PRN (17:30)
[2016-12-19] MEDS ORDERED: Mylanta II UD 30ml GT PRN (17:30)
[2016-12-19] MEDS: Gabapentin 300 MG/6 ML Soln GT SCH (18:25)
[2016-12-19 20:00] VITALS: BP 109/63
[2016-12-20] VITALS: BP 108/67
[2016-12-20] MEDS: Morphine Sulfate 2mg/ml Inj IVP PRN ×4 (00:04→12:44)
[2016-12-20 04:13] VITALS: BP 104/70
[2016-12-20] MEDS ORDERED: cefTRIAXone 1 GM in D5W 55 ML IVPB SCH (06:00)
[2016-12-20] MEDS: NovoLOG Insulin Flexpen SUBQ SCH ×4 (06:19→21:00)
[2016-12-20 07:02] LABS: EOSINOPHILS % (AUTO) 5.5 % (0.0-3.0); HEMATOCRIT 42.1 % (37.0-47.0); HEMOGLOBIN 12.4 G/DL (12.0-16.0); MEAN CORPUSCULAR VOLUME 97 FL (80-99); MONOCYTES % (AUTO) 6.9 % (1.0-10.0); NEUTROPHILS % (AUTO) 66.6 % (45.0-75.0); PLATELET COUNT 389 K/UL (150-450); RED BLOOD COUNT 4.33 M/UL (4.20-5.40); RED CELL DISTRIBUTION WIDTH 16.7 % (11.6-14.8); WHITE BLOOD COUNT 12.6 K/UL (4.8-10.8)
[2016-12-20 08:15] VITALS: BP 115/70
[2016-12-20] MEDS: HydrOXYzine 25mg tab GT SCH ×2 (08:28→17:50)
[2016-12-20] MEDS: Gabapentin 300 MG/6 ML Soln GT SCH ×3 (08:32→17:50)
[2016-12-20] MEDS: Heparin 5000 units/ml inj SUBQ SCH ×2 (08:32→22:41)
[2016-12-20] MEDS ORDERED: Dyna-Hex 2% Top Sol 2oz TOPIC SCH (09:00)
--- NOTE | 2016-12-20 11:10 | Infectious Diseases Prog Note ---
Assessment/Plan Assessment/Plan Assesment: SOB- likely related to malpositioned trach +/- ?PNA- improving Possible PNA -CXR: Interstitial disease nonspecific. CHF, pneumonitis not excluded -spu cx pending Leukocytosis- ?reactive vs 2ry to PNA vs combination- improving -Bcx NTD -u/a WBC 2-4 COPD and chronic tracheostomy, CHF, spinal fusion, DVT, s/p hip surgery, chronic pain, intermediate resident Plan: -Continue IV Ceftriaxone and Azithromcyin (abx 06/20); upon discharge can finish with PO azithromycin and PO Cefdinir or Cefpodoxime -s/p 1 d IV Vanco/Cefpime 12/18 -s/p 1d Levaquin 12/17 -f/u Bcx, sp cx -Monitor CBC/BMP, temperatures -trach care -Aspiration precautions. Thank you for this consultation. WIll continue to follow along with you. Discussed with RN. Subjective Allergies: Coded Allergies: ACETAMINOPHEN (Unverified Allergy, Unknown, 12/17/16) CODEINE (Unverified Allergy, Unknown, 03/04/14) IODINE (Unverified Allergy, Unknown, 12/17/16) Subjective afebrile feeling better Objective Vital Signs Last 24 Hour Vital Signs Date Time Temp Pulse Resp B/P (MAP) Pulse Ox O2 Delivery O2 Flow Rate FiO2 12/20/16 08:28 82 12/20/16 08:15 97.6 81 21 115/70 96 12/20/16 06:55 92 T-piece 12.0 40 12/20/16 06:55 83 18 T-piece 12.0 40 12/20/16 06:55 T-piece 12.0 40 12/20/16 04:13 97.3 81 19 104/70 92 Venturi Mask 2.0 12/20/16 01:38 93 T-piece 12.0 40 12/20/16 01:38 T-piece 12.0 40 12/20/16 00:00 98.6 67 21 108/67 93 Venturi Mask 2.0 12/19/16 23:02 61 18 T-piece 12.0 40 12/19/16 20:00 98.5 61 19 109/63 94 Venturi Mask 12/19/16 19:30 T-piece 12.0 40 12/19/16 19:30 94 T-piece 12.0 40 12/19/16 16:08 96.3 84 19 113/66 92 Mechanical Ventilator 5.0 12/19/16 14:21 77 12/19/16 13:30 96 T-piece 8.0 35 12/19/16 13:30 T-piece 8.0 35 12/19/16 11:21 96.1 81 23 120/68 99 T-piece Height (Feet): 5 Height (Inches): 7.00 Weight (Pounds): 126 Objective General Appearance: WD/WN, frail Lines, tubes and drains: peripheral, gtube HEENT: normocephalic, atraumatic Neck: non-tender, normal alignment Respiratory/Chest: chest wall non-tender, lungs clear Cardiovascular/Chest: normal peripheral pulses, normal rate Abdomen: normal bowel sounds, non tender Genitourinary/Rectal: normal genital exam, normal rectal exam Extremities: normal range of motion, non-tender Microbiology Date/Time Source Procedure Growth Status 12/17/16 22:00 Blood Blood Culture - Preliminary NO GROWTH AFTER 48 HOURS Resulted 12/17/16 21:45 Blood Blood Culture - Preliminary NO GROWTH AFTER 48 HOURS Resulted Laboratory Tests Test 12/20/16 06:16 White Blood Count 12.6 K/UL (4.8-10.8) H Red Blood Count 4.33 M/UL (4.20-5.40) Hemoglobin 12.4 G/DL (12.0-16.0) Hematocrit 42.1 % (37.0-47.0) Mean Corpuscular Volume 97 FL (80-99) Mean Corpuscular Hemoglobin 28.6 PG (27.0-31.0) Mean Corpuscular Hemoglobin Concent 29.4 G/DL (32.0-36.0) L Red Cell Distribution Width 16.7 % (11.6-14.8) H Platelet Count 389 K/UL (150-450) Mean Platelet Volume 7.3 FL (6.5-10.1) Neutrophils (%) (Auto) 66.6 % (45.0-75.0) Lymphocytes (%) (Auto) 19.0 % (20.0-45.0) L Monocytes (%) (Auto) 6.9 % (1.0-10.0) Eosinophils (%) (Auto) 5.5 % (0.0-3.0) H Basophils (%) (Auto) 2.0 % (0.0-2.0) Current Medications Medications (Trade) Dose Ordered Sig/Sandra Route PRN Reason Start Time Stop Time Status Last Admin Dose Admin Al Hydroxide/Mg Hydroxide (Mylanta II) 30 ml Q6H PRN GT dyspepsia 12/19/16 17:30 01/16/17 17:29 Albuterol/ Ipratropium (DuoNeb 0.5-3(2.5)mg/3ml) 3 ml Q4H PRN HHN Shortness of Breath 12/19/16 17:30 12/22/16 17:29 Azithromycin (Zithromax) 500 mg QPM ORAL 12/20/16 16:30 12/25/16 18:59 Ceftriaxone Sodium 1 gm/ Dextrose 55 ml @ 110 mls/hr Q24H IVPB 12/20/16 06:00 12/26/16 05:59 12/20/16 05:42 Chlorhexidine Gluconate (Chioma-Hex 2%) 1 applic DAILY TOPIC 12/20/16 09:00 01/18/17 08:59 12/20/16 08:27 Dextrose (Dextrose 50%) STAT PRN IV Hypoglycemia 12/19/16 17:30 01/16/17 17:29 Digoxin (Lanoxin) 0.25 mg DAILY GT 12/20/16 09:00 01/17/17 09:29 12/20/16 08:28 Gabapentin (Neurontin) 300 mg TID GT 12/19/16 18:00 01/18/17 13:59 12/20/16 08:32 Heparin Sodium (Porcine) (Heparin 5000 units/ml) 5,000 units EVERY 12 HOURS SUBQ 12/19/16 21:00 01/17/17 08:59 12/20/16 08:32 Hydroxyzine HCl (Atarax) 25 mg BID GT 12/19/16 18:00 01/17/17 08:59 12/20/16 08:28 Insulin Aspart (NovoLOG) BEFORE MEALS AND HS SUBQ 12/19/16 21:00 01/17/17 06:29 Levothyroxine Sodium (Synthroid) 75 mcg ACBREAKFAST GT 12/20/16 06:30 01/19/17 06:29 12/20/16 05:43 Mirtazapine (Remeron) 7.5 mg BEDTIME GT 12/19/16 21:00 01/17/17 20:59 12/19/16 20:39 Morphine Sulfate (Morphine Sulfate) 2 mg Q4H PRN IVP For Pain 4-10 12/19/16 17:30 12/25/16 17:29 12/20/16 08:25 Nitroglycerin (Ntg) 0.4 mg Q5MIN X 3 DOSES PRN SL Prn Chest Pain 12/19/16 17:20 01/18/17 17:19 Ondansetron HCl (Zofran) 4 mg Q6H PRN IVP Nausea & Vomiting 12/19/16 17:30 01/16/17 17:29 Pioglitazone HCl (Actos) 15 mg DAILY GT 12/20/16 09:00 01/17/17 09:29 12/20/16 10:17 Polyethylene Glycol (Miralax) 17 gm DAILYPRN PRN ORAL Constipation 12/19/16 17:30 01/16/17 17:29 Temazepam (Restoril) 15 mg HSPRN PRN GT Insomnia 12/19/16 17:30 12/24/16 17:29 Lisa Cartagena M.D. Dec 20, 2016 11:10
--- NOTE | 2016-12-20 11:52 | Diagnostic Imaging Report ---
Indication: Dysphasia Procedure and findings: Real-time fluoroscopic imaging performed in a lateral projection in conjunction with the speech pathologist evaluation. Variable consistencies of barium given per mouth. Findings: Significant abnormalities of both oral and pharyngeal phases of swallowing are demonstrated. Total fluoroscopic time 105 seconds. Trace laryngeal penetration noted with thin barium. No aspiration appreciated. Abnormal video swallow. Please refer to speech pathology evaluation for more information.
[2016-12-20 11:57] VITALS: BP 103/76
[2016-12-20] MEDS ORDERED: AZITHROMYCIN250 MG ORAL (14:12)
[2016-12-20] MEDS ORDERED: NOVOLOG100 UNIT/3 SUBQ (14:13)
[2016-12-20] MEDS ORDERED: DUONEB 0.5-3(2.53 ML HHN (14:13)
[2016-12-20] MEDS ORDERED: LEVOTHYROXINE75 MCG GT (14:15)
[2016-12-20] MEDS ORDERED: CEFDINIR300 MG PO (14:15)
[2016-12-20] MEDS ORDERED: AZITHROMYCIN250 MG GT (14:16)
[2016-12-20] MEDS ORDERED: MORPHINE 22 MG/1 ML IV (14:17)
[2016-12-20] MEDS ORDERED: MIRTAZAPINE15 MG GT (14:17)
[2016-12-20] MEDS ORDERED: ZOFRAN 4 MG4 MG/2 ML IV (14:18)
[2016-12-20] MEDS ORDERED: NITROGLYCERIN0.4 MG SL (14:18)
[2016-12-20] MEDS ORDERED: MIRALAX17 G2 ORAL (14:18)
[2016-12-20] MEDS ORDERED: RESTORIL22.5 MG GT (14:19)
[2016-12-20] MEDS ORDERED: Tubing IV Secondary IV ONE (14:38)
[2016-12-20] MEDS ORDERED: NS 275ml ONE (14:38)
[2016-12-20] MEDS ORDERED: D5W 275ml ONE (14:38)
[2016-12-20 16:00] VITALS: BP 117/69
[2016-12-20] MEDS ORDERED: Azithromycin 250mg tab ORAL SCH (16:30)
--- NOTE | 2016-12-20 17:04 | Pulmonology Progress Note ---
Assessment/Plan Problems: (1) Purulent bronchitis (2) Acute and chronic respiratory failure ([id number]) (3) Tracheostomy malfunction (4) COPD (chronic obstructive pulmonary disease) (5) Interstitial lung disease (6) Diabetes mellitus (7) Hypothyroidism Assessment/Plan start on Vent iv abx respiratory treatment check sputum psych evaluation all notes reviewed dour Subjective ROS Limited/Unobtainable: No Interval Events: feeling short of breath, wants to go back on ventilator Constitutional: Reports: no symptoms HEENT: Repors: no symptoms Respiratory: Reports: no symptoms Allergies: Coded Allergies: ACETAMINOPHEN (Unverified Allergy, Unknown, 12/17/16) CODEINE (Unverified Allergy, Unknown, 03/04/14) IODINE (Unverified Allergy, Unknown, 12/17/16) Objective Last 24 Hour Vital Signs Date Time Temp Pulse Resp B/P (MAP) Pulse Ox O2 Delivery O2 Flow Rate FiO2 12/20/16 14:20 83 20 87 T-piece 12.0 70 12/20/16 14:15 88 20 88 T-piece 12.0 70 12/20/16 13:25 T-piece 12.0 40 12/20/16 13:25 95 T-piece 12.0 40 12/20/16 11:57 98.6 83 21 103/76 96 Room Air 12/20/16 08:28 82 12/20/16 08:15 97.6 81 21 115/70 96 12/20/16 06:55 92 T-piece 12.0 40 12/20/16 06:55 83 18 T-piece 12.0 40 12/20/16 06:55 T-piece 12.0 40 12/20/16 04:13 97.3 81 19 104/70 92 Venturi Mask 2.0 12/20/16 01:38 93 T-piece 12.0 40 12/20/16 01:38 T-piece 12.0 40 12/20/16 00:00 98.6 67 21 108/67 93 Venturi Mask 2.0 12/19/16 23:02 61 18 T-piece 12.0 40 12/19/16 20:00 98.5 61 19 109/63 94 Venturi Mask 12/19/16 19:30 T-piece 12.0 40 12/19/16 19:30 94 T-piece 12.0 40 Intake and Output 12/20/16 12/21/16 18:59 06:59 Intake Total 65 ml Balance 65 ml Tube Feeding 65 ml General Appearance: WD/WN HEENT: normocephalic, anicteric Respiratory/Chest: chest wall non-tender, lungs clear Breasts: no masses Cardiovascular: normal peripheral pulses, normal rate Abdomen: normal bowel sounds, soft, non tender Extremities: no cyanosis, no clubbing Neurologic/Psychiatric: no motor/sensory deficits Lymphatic: no neck adenopathy Microbiology Date/Time Source Procedure Growth Status 12/17/16 22:00 Blood Blood Culture - Preliminary NO GROWTH AFTER 48 HOURS Resulted 12/17/16 21:45 Blood Blood Culture - Preliminary NO GROWTH AFTER 48 HOURS Resulted Laboratory Tests 12/20/16 06:16: White Blood Count 12.6H, Red Blood Count 4.33, Hemoglobin 12.4, Hematocrit 42.1 , Mean Corpuscular Volume 97, Mean Corpuscular Hemoglobin 28.6, Mean Corpuscular Hemoglobin Concent 29.4L, Red Cell Distribution Width 16.7H, Platelet Count 389, Mean Platelet Volume 7.3, Neutrophils (%) (Auto) 66.6, Lymphocytes (%) (Auto) 19.0L, Monocytes (%) (Auto) 6.9, Eosinophils (%) (Auto) 5.5H, Basophils (%) (Auto) 2.0 Current Medications Medications (Trade) Dose Ordered Sig/Sandra Route PRN Reason Start Time Stop Time Status Last Admin Dose Admin Al Hydroxide/Mg Hydroxide (Mylanta II) 30 ml Q6H PRN GT dyspepsia 12/19/16 17:30 01/16/17 17:29 Albuterol/ Ipratropium (DuoNeb 0.5-3(2.5)mg/3ml) 3 ml Q4H PRN HHN Shortness of Breath 12/19/16 17:30 12/22/16 17:29 12/20/16 14:12 Azithromycin (Zithromax) 500 mg QPM ORAL 12/20/16 16:30 12/25/16 18:59 12/20/16 16:12 Ceftriaxone Sodium 1 gm/ Dextrose 55 ml @ 110 mls/hr Q24H IVPB 12/20/16 06:00 12/26/16 05:59 12/20/16 05:42 Chlorhexidine Gluconate (Chioma-Hex 2%) 1 applic DAILY TOPIC 12/20/16 09:00 01/18/17 08:59 12/20/16 08:27 Dextrose (Dextrose 50%) STAT PRN IV Hypoglycemia 12/19/16 17:30 01/16/17 17:29 Digoxin (Lanoxin) 0.25 mg DAILY GT 12/20/16 09:00 01/17/17 09:29 12/20/16 08:28 Gabapentin (Neurontin) 300 mg TID GT 12/19/16 18:00 01/18/17 13:59 12/20/16 12:43 Heparin Sodium (Porcine) (Heparin 5000 units/ml) 5,000 units EVERY 12 HOURS SUBQ 12/19/16 21:00 01/17/17 08:59 12/20/16 08:32 Hydroxyzine HCl (Atarax) 25 mg BID GT 12/19/16 18:00 01/17/17 08:59 12/20/16 08:28 Insulin Aspart (NovoLOG) BEFORE MEALS AND HS SUBQ 12/19/16 21:00 01/17/17 06:29 Levothyroxine Sodium (Synthroid) 75 mcg ACBREAKFAST GT 12/20/16 06:30 01/19/17 06:29 12/20/16 05:43 Mirtazapine (Remeron) 7.5 mg BEDTIME GT 12/19/16 21:00 01/17/17 20:59 12/19/16 20:39 Morphine Sulfate (Morphine Sulfate) 2 mg Q4H PRN IVP For Pain 4-10 12/19/16 17:30 12/25/16 17:29 12/20/16 12:44 Nitroglycerin (Ntg) 0.4 mg Q5MIN X 3 DOSES PRN SL Prn Chest Pain 12/19/16 17:20 01/18/17 17:19 Ondansetron HCl (Zofran) 4 mg Q6H PRN IVP Nausea & Vomiting 12/19/16 17:30 01/16/17 17:29 Pioglitazone HCl (Actos) 15 mg DAILY GT 12/20/16 09:00 01/17/17 09:29 12/20/16 10:17 Polyethylene Glycol (Miralax) 17 gm DAILYPRN PRN ORAL Constipation 12/19/16 17:30 11/1/17 17:29 Temazepam (Restoril) 15 mg HSPRN PRN GT Insomnia 12/19/16 17:30 12/24/16 17:29 DEDRICK SOLANO Dec 20, 2016 17:04
--- NOTE | 2016-12-20 17:09 | Diagnostic Imaging Report ---
Indication: Dyspnea Comparison: December 17, 2016 A single view chest radiograph was obtained. Findings: A interstitial edema suspected. Right hemidiaphragm is elevated unchanged. Tubes and lines stable. Impression: No change from the prior exam. Interstitial edema suspected.
[2016-12-20] MEDS ORDERED: Nitroglycerin Subl 0.4mg tab SL PRN (18:45)
[2016-12-20] MEDS ORDERED: Albuterol/Ipratropium 3ml neb HHN PRN (19:30)
[2016-12-20] MEDS ORDERED: Morphine Sulfate 2mg/ml Inj IVP PRN (19:30)
[2016-12-20] MEDS ORDERED: Mylanta II UD 30ml GT PRN (19:30)
[2016-12-20] MEDS ORDERED: Miralax 17gm pkt ORAL PRN (19:30)
[2016-12-20 20:00] VITALS: BP 118/72
[2016-12-21 00:05] VITALS: BP 124/71
[2016-12-21 04:00] VITALS: BP 113/66
[2016-12-21] MEDS ORDERED: cefTRIAXone 1 GM in D5W 55 ML IVPB SCH (06:00)
[2016-12-21] MEDS: NovoLOG Insulin Flexpen SUBQ SCH ×4 (06:10→22:02)
[2016-12-21 08:00] VITALS: BP 101/62
[2016-12-21] MEDS ORDERED: Dyna-Hex 2% Top Sol 2oz TOPIC SCH ×2 (09:00→21:00)
[2016-12-21] MEDS: Gabapentin 300 MG/6 ML Soln GT SCH ×3 (09:06→17:21)
[2016-12-21] MEDS: HydrOXYzine 25mg tab GT SCH ×2 (09:06→17:28)
[2016-12-21] MEDS: Heparin 5000 units/ml inj SUBQ SCH ×2 (09:08→22:01)
[2016-12-21 12:00] VITALS: BP_SYST 101; BP_SYST 105; BP_DIAS 62; BP_DIAS 63
--- NOTE | 2016-12-21 12:58 | General Progress Note ---
Progress Note Progress Note Chart reviewed, pt examined, pt well known to our group. She underwent removal of her tracheostomy tube at bedside. If she develops any respiratory distress she will need to intubated or the tracheostomy tube ( #6 ) will need to be reinserted. Edward Saini MD Dec 21, 2016 12:58
--- NOTE | 2016-12-21 13:16 | Pulmonology Progress Note ---
Assessment/Plan Problems: (1) Purulent bronchitis (2) Acute and chronic respiratory failure ([id number]) (3) Tracheostomy malfunction (4) COPD (chronic obstructive pulmonary disease) (5) Interstitial lung disease (6) Diabetes mellitus (7) Hypothyroidism Assessment/Plan d/w dr delatorre, He pulled out the trach ( he knew her from previous hospitalization) iv abx respiratory treatment check sputum psych evaluation all notes reviewed dc planning Subjective ROS Limited/Unobtainable: No Constitutional: Reports: no symptoms HEENT: Repors: no symptoms Respiratory: Reports: no symptoms Allergies: Coded Allergies: ACETAMINOPHEN (Unverified Allergy, Unknown, 12/17/16) CODEINE (Unverified Allergy, Unknown, 03/04/14) IODINE (Unverified Allergy, Unknown, 12/17/16) Objective Last 24 Hour Vital Signs Date Time Temp Pulse Resp B/P (MAP) Pulse Ox O2 Delivery O2 Flow Rate FiO2 12/21/16 13:09 81 22 Nasal Cannula 3.0 32 12/21/16 13:08 Nasal Cannula 3.0 32 12/21/16 13:07 98 Nasal Cannula 3.0 32 12/21/16 12:00 97.7 77 19 105/63 99 Nasal Cannula 3.0 12/21/16 12:00 78 12/21/16 09:07 77 12/21/16 08:00 98.3 77 18 101/62 99 Nasal Cannula 3.0 12/21/16 08:00 76 12/21/16 07:12 Nasal Cannula 3.0 32 12/21/16 07:11 98 Nasal Cannula 3.0 32 12/21/16 07:09 83 20 Nasal Cannula 3.0 32 12/21/16 04:00 97.3 82 20 113/66 97 Nasal Cannula 3.0 12/21/16 03:56 80 12/21/16 01:06 99 Nasal Cannula 3.0 32 12/21/16 01:06 Nasal Cannula 3.0 32 12/21/16 00:05 98.4 78 24 124/71 99 Nasal Cannula 3.0 12/21/16 00:00 79 12/20/16 20:00 96.9 94 20 118/72 99 Nasal Cannula 3.0 12/20/16 19:04 87 12/20/16 18:40 Nasal Cannula 3.0 32 12/20/16 18:40 98 Nasal Cannula 3.0 32 12/20/16 18:40 86 18 Nasal Cannula 3.0 32 12/20/16 16:00 98.4 83 20 117/69 89 Mechanical Ventilator 14.0 12/20/16 14:20 83 20 87 T-piece 12.0 70 12/20/16 14:15 88 20 88 T-piece 12.0 70 12/20/16 13:25 T-piece 12.0 40 12/20/16 13:25 95 T-piece 12.0 40 Intake and Output 12/21/16 12/22/16 19:00 07:00 # Bowel Movements 2 General Appearance: WD/WN HEENT: normocephalic, atraumatic Respiratory/Chest: chest wall non-tender, lungs clear Breasts: no masses Cardiovascular: normal peripheral pulses Abdomen: normal bowel sounds, soft, non tender Genitourinary: normal external genitalia 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 Lymphatic: no neck adenopathy Current Medications Medications (Trade) Dose Ordered Sig/Sandra Route PRN Reason Start Time Stop Time Status Last Admin Dose Admin Al Hydroxide/Mg Hydroxide (Mylanta II) 30 ml Q6H PRN GT dyspepsia 12/20/16 19:30 01/16/17 19:29 Albuterol/ Ipratropium (DuoNeb 0.5-3(2.5)mg/3ml) 3 ml Q4H PRN HHN Shortness of Breath 12/20/16 19:30 12/22/16 19:29 Azithromycin (Zithromax) 500 mg QPM ORAL 12/21/16 16:30 12/25/16 18:59 Ceftriaxone Sodium 1 gm/ Dextrose 55 ml @ 110 mls/hr Q24H IVPB 12/21/16 06:00 12/26/16 05:59 12/21/16 06:07 Chlorhexidine Gluconate (Chioma-Hex 2%) 1 applic QHS TOPIC 12/21/16 21:00 01/20/17 20:59 Dextrose (Dextrose 50%) STAT PRN IV Hypoglycemia 12/20/16 19:30 01/19/17 19:29 Digoxin (Lanoxin) 0.25 mg DAILY GT 12/21/16 09:00 01/17/17 09:29 12/21/16 09:07 Gabapentin (Neurontin) 300 mg TID GT 12/21/16 09:00 01/18/17 13:59 12/21/16 12:38 Heparin Sodium (Porcine) (Heparin 5000 units/ml) 5,000 units EVERY 12 HOURS SUBQ 12/20/16 21:00 01/17/17 08:59 12/21/16 09:08 Hydroxyzine HCl (Atarax) 25 mg BID GT 12/21/16 09:00 01/17/17 08:59 12/21/16 09:06 Insulin Aspart (NovoLOG) Q6HR SUBQ 12/21/16 12:00 01/17/17 06:29 12/21/16 12:40 Levothyroxine Sodium (Synthroid) 75 mcg ACBREAKFAST GT 12/21/16 06:30 01/19/17 06:29 12/21/16 06:10 Mirtazapine (Remeron) 7.5 mg BEDTIME GT 12/20/16 21:00 01/17/17 20:59 12/20/16 22:40 Morphine Sulfate (Morphine Sulfate) 2 mg Q4H PRN IVP For Pain 4-10 12/20/16 19:30 12/25/16 19:29 Nitroglycerin (Ntg) 0.4 mg Q5MIN X 3 DOSES PRN SL Prn Chest Pain 12/20/16 18:45 01/18/17 17:19 Ondansetron HCl (Zofran) 4 mg Q6H PRN IVP Nausea & Vomiting 12/20/16 19:30 01/16/17 19:29 Pioglitazone HCl (Actos) 15 mg DAILY GT 12/21/16 09:00 01/17/17 09:29 12/21/16 09:06 Polyethylene Glycol (Miralax) 17 gm DAILYPRN PRN ORAL Constipation 12/20/16 19:30 01/19/17 19:29 Temazepam (Restoril) 15 mg HSPRN PRN GT Insomnia 12/20/16 19:30 12/27/16 19:29 DEDRICK SOLANO Dec 21, 2016 13:16
[2016-12-21] MEDS ORDERED: Tubing IV Secondary IV ONE (15:09)
[2016-12-21 16:00] VITALS: BP 120/62
[2016-12-21] MEDS ORDERED: Azithromycin 250mg tab ORAL SCH (16:30)
--- NOTE | 2016-12-21 18:44 | Infectious Diseases Prog Note ---
Assessment/Plan Assessment/Plan Assesment: SOB- likely related to malpositioned trach +/- ?PNA- improving Possible PNA -CXR: Interstitial disease nonspecific. CHF, pneumonitis not excluded -spu cx ordered, not collected Leukocytosis- ?reactive vs 2ry to PNA vs combination- improving -Bcx NTD -u/a WBC 2-4 COPD and chronic tracheostomy, CHF, spinal fusion, DVT, s/p hip surgery, chronic pain, senior living resident Plan: -Last day of IV Ceftriaxone and Azithromcyin (abx 07/20) -s/p 1 d IV Vanco/Cefpime 12/18 -s/p 1d Levaquin 12/17 -f/u Bcx -Monitor CBC/BMP, temperatures; CBC am -trach care -Aspiration precautions. Thank you for this consultation. WIll continue to follow along with you. Discussed with RN. Subjective Allergies: Coded Allergies: ACETAMINOPHEN (Unverified Allergy, Unknown, 12/17/16) CODEINE (Unverified Allergy, Unknown, 03/04/14) IODINE (Unverified Allergy, Unknown, 12/17/16) Subjective afebrile feeling better Objective Vital Signs Last 24 Hour Vital Signs Date Time Temp Pulse Resp B/P (MAP) Pulse Ox O2 Delivery O2 Flow Rate FiO2 12/21/16 16:00 97.9 68 18 120/62 98 Nasal Cannula 3.0 12/21/16 16:00 83 12/21/16 13:09 81 22 Nasal Cannula 3.0 32 12/21/16 13:08 Nasal Cannula 3.0 32 12/21/16 13:07 98 Nasal Cannula 3.0 32 12/21/16 12:00 97.7 77 19 105/63 99 Nasal Cannula 3.0 12/21/16 12:00 78 12/21/16 09:07 77 12/21/16 08:00 98.3 77 18 101/62 99 Nasal Cannula 3.0 12/21/16 08:00 76 12/21/16 07:12 Nasal Cannula 3.0 32 12/21/16 07:11 98 Nasal Cannula 3.0 32 12/21/16 07:09 83 20 Nasal Cannula 3.0 32 12/21/16 04:00 97.3 82 20 113/66 97 Nasal Cannula 3.0 12/21/16 03:56 80 12/21/16 01:06 99 Nasal Cannula 3.0 32 12/21/16 01:06 Nasal Cannula 3.0 32 12/21/16 00:05 98.4 78 24 124/71 99 Nasal Cannula 3.0 12/21/16 00:00 79 12/20/16 20:00 96.9 94 20 118/72 99 Nasal Cannula 3.0 12/20/16 19:04 87 Height (Feet): 5 Height (Inches): 7.00 Weight (Pounds): 126 Objective General Appearance: WD/WN, frail Lines, tubes and drains: peripheral, gtube HEENT: normocephalic, atraumatic Neck: non-tender, normal alignment Respiratory/Chest: chest wall non-tender, lungs clear Cardiovascular/Chest: normal peripheral pulses, normal rate Abdomen: normal bowel sounds, non tender Genitourinary/Rectal: normal genital exam, normal rectal exam Extremities: normal range of motion, non-tender Current Medications Medications (Trade) Dose Ordered Sig/Sandra Route PRN Reason Start Time Stop Time Status Last Admin Dose Admin Al Hydroxide/Mg Hydroxide (Mylanta II) 30 ml Q6H PRN GT dyspepsia 12/20/16 19:30 01/16/17 19:29 Albuterol/ Ipratropium (DuoNeb 0.5-3(2.5)mg/3ml) 3 ml Q4H PRN HHN Shortness of Breath 12/20/16 19:30 12/22/16 19:29 Azithromycin (Zithromax) 500 mg QPM ORAL 12/21/16 16:30 12/25/16 18:59 12/21/16 17:27 Ceftriaxone Sodium 1 gm/ Dextrose 55 ml @ 110 mls/hr Q24H IVPB 12/21/16 06:00 12/26/16 05:59 12/21/16 06:07 Chlorhexidine Gluconate (Chioma-Hex 2%) 1 applic QHS TOPIC 12/21/16 21:00 01/20/17 20:59 Dextrose (Dextrose 50%) STAT PRN IV Hypoglycemia 12/20/16 19:30 01/19/17 19:29 Digoxin (Lanoxin) 0.25 mg DAILY GT 12/21/16 09:00 01/17/17 09:29 12/21/16 09:07 Gabapentin (Neurontin) 300 mg TID GT 12/21/16 09:00 01/18/17 13:59 12/21/16 17:21 Heparin Sodium (Porcine) (Heparin 5000 units/ml) 5,000 units EVERY 12 HOURS SUBQ 12/20/16 21:00 01/17/17 08:59 12/21/16 09:08 Hydroxyzine HCl (Atarax) 25 mg BID GT 12/21/16 09:00 01/17/17 08:59 12/21/16 17:28 Insulin Aspart (NovoLOG) Q6HR SUBQ 12/21/16 12:00 01/17/17 06:29 12/21/16 12:40 Levothyroxine Sodium (Synthroid) 75 mcg ACBREAKFAST GT 12/21/16 06:30 01/19/17 06:29 12/21/16 06:10 Mirtazapine (Remeron) 7.5 mg BEDTIME GT 12/20/16 21:00 01/17/17 20:59 12/20/16 22:40 Morphine Sulfate (Morphine Sulfate) 2 mg Q4H PRN IVP For Pain 4-12/20/16 19:30 12/25/16 19:29 Nitroglycerin (Ntg) 0.4 mg Q5MIN X 3 DOSES PRN SL Prn Chest Pain 12/20/16 18:45 01/18/17 17:19 Ondansetron HCl (Zofran) 4 mg Q6H PRN IVP Nausea & Vomiting 12/20/16 19:30 01/16/17 19:29 Pioglitazone HCl (Actos) 15 mg DAILY GT 12/21/16 09:00 01/17/17 09:29 12/21/16 09:06 Polyethylene Glycol (Miralax) 17 gm DAILYPRN PRN ORAL Constipation 12/20/16 19:30 01/19/17 19:29 Temazepam (Restoril) 15 mg HSPRN PRN GT Insomnia 12/20/16 19:30 12/27/16 19:29 Lisa Cartagena M.D. Dec 21, 2016 18:44
[2016-12-21 20:00] VITALS: BP 120/70
--- NOTE | 2016-12-21 23:01 | Consultation ---
DATE OF CONSULTATION: 12/21/2016 SURGICAL CONSULTATION REASON FOR CONSULTATION: Tracheostomy removal. History Of Present Illness: This 66-year-old white female is well known to our group. The patient had a protracted hospitalization at [facility] where she underwent a laparotomy for small bowel obstruction. She had problems with respiratory failure and required a long-term intubation. During her intubation, she acquired a left pneumothorax requiring chest tube placement. The patient subsequently underwent a tracheostomy. She made progress on the ventilator to the point where she was breathing with a trach collar. Her respiratory function improved to the point of not requiring mechanical ventilation. The tracheostomy was switched from an 8 to a [address] Trace Adame. The patient was subsequently transferred to a senior living facility. The patient was admitted to [facility] due to left chest pain. Her tracheostomy was found to be malpositioned in the ER. She was able to phonate without difficulty. PAST MEDICAL HISTORY: See history of present illness. ALLERGIES: Tylenol, codeine, and iodine. Medications: Vitamin C 500 mg twice a day, calcium carbonate, vitamin D3, digoxin 0.25 mg daily, folic acid 1 mg daily, Neurontin 200 mg 3 times a day, hydroxyzine 25 mg twice a day, ipratropium-albuterol sulfate inhaler every 2 hours, levothyroxine 75 mcg daily, metoclopramide 5 mg every 6 hours, mirtazapine 7.5 mg at bedtime, Protonix 40 mg daily, Actos 15 mg daily, Topamax 200 mg every 12 hours, and zinc sulfate 220 mg daily. Social History: The patient has a past history of cigarette smoking. Alcohol, none. FAMILY HISTORY: Noncontributory. REVIEW OF SYSTEMS: Essentially negative. PHYSICAL EXAMINATION: GENERAL: A talkative white female, in no acute distress. HEENT: Normocephalic. Neck: Supple without adenopathy. The tracheostomy tube was partially dislodged. The tube was removed at bedside without difficulty. LUNGS: Clear. HEART: Showed a regular rhythm. Abdomen: Soft. There was no organomegaly. The low midline incision is well healed. EXTREMITIES: No edema. Laboratory Studies: CBC from yesterday showed a white blood count of 12,600, hemoglobin 12.4 g%, hematocrit 42.1%, and platelet count 389,000. Clinical chemistry showed a sodium of 138, potassium 4.7, chloride 103, bicarbonate 24, BUN 17, creatinine 0.4, and glucose 121. Chest x-ray yesterday showed suspected interstitial edema. The right hemidiaphragm was elevated, unchanged from admission 3 days prior. Plan: There is no need for surgical intervention at this point. We will put a Band-Aid over the tracheostomy site in order the patient can phonate. Should the patient develop any respiratory embarrassment, she would need to replace the tracheostomy at bedside. Edward Saini M.D. DR: LEONARDA JOB#: [id number] CC:
--- NOTE | 2016-12-21 23:01 | Consultation ---
DATE OF CONSULTATION: 12/21/2016 SURGICAL CONSULTATION REASON FOR CONSULTATION: Tracheostomy removal. History Of Present Illness: This 66-year-old white female is well known to our group. [place] [facility] [place] a laparotomy for small bowel obstruction. She had problems with respiratory failure and required a long-term intubation. During her intubation, she acquired a left pneumothorax requiring chest tube placement. The patient subsequently underwent a tracheostomy. She made progress on the ventilator to the point where she was breathing with a trach collar. Her respiratory function improved to the point of not requiring mechanical ventilation. The tracheostomy was switched from an 8 to a [address] Trace Adame. The patient [facility]. The patient was admitted to [facility] due to left chest pain. Her tracheostomy was found to be malpositioned in the ER. She was able to phonate without difficulty. PAST MEDICAL HISTORY: See history of present illness. ALLERGIES: Tylenol, codeine, and iodine. Medications: Vitamin C 500 mg twice a day, calcium carbonate, vitamin D3, digoxin 0.25 mg daily, folic acid 1 mg daily, Neurontin 200 mg 3 times a day, hydroxyzine 25 mg twice a day, ipratropium-albuterol sulfate inhaler every 2 hours, levothyroxine 75 mcg daily, metoclopramide 5 mg every 6 hours, mirtazapine 7.5 mg at bedtime, Protonix 40 mg daily, Actos 15 mg daily, Topamax 200 mg every 12 hours, and zinc sulfate 220 mg daily. Social History: The patient has a past history of cigarette smoking. Alcohol, none. FAMILY HISTORY: Noncontributory. REVIEW OF SYSTEMS: Essentially negative. PHYSICAL EXAMINATION: GENERAL: A talkative white female, in no acute distress. HEENT: Normocephalic. Neck: Supple without adenopathy. The tracheostomy tube was partially dislodged. The tube was removed at bedside without difficulty. LUNGS: Clear. HEART: Showed a regular rhythm. Abdomen: Soft. There was no organomegaly. The low midline incision is well healed. EXTREMITIES: No edema. Laboratory Studies: CBC from yesterday showed a white blood count of 12,600, hemoglobin 12.4 g%, hematocrit 42.1%, and platelet count 389,000. Clinical chemistry showed a sodium of 138, potassium 4.7, chloride 103, bicarbonate 24, BUN 17, creatinine 0.4, and glucose 121. Chest x-ray yesterday showed suspected interstitial edema. The right hemidiaphragm was elevated, unchanged from admission 3 days prior. Plan: There is no need for surgical intervention at this point. We will put a Band-Aid over the tracheostomy site in order the patient can phonate. Should the patient develop any respiratory embarrassment, she would need to replace the tracheostomy at bedside. Edward Saini M.D. DR: LEONARDA JOB#: [id number] CC:
[2016-12-22] VITALS: BP 134/75
[2016-12-22 04:00] VITALS: BP 105/63
[2016-12-22 05:03] LABS: BASOPHILS % (AUTO) 1.9 % (0.0-2.0); EOSINOPHILS % (AUTO) 7.1 % (0.0-3.0); HEMATOCRIT 41.6 % (37.0-47.0); HEMOGLOBIN 12.8 G/DL (12.0-16.0); LYMPHOCYTES % (AUTO) 28.2 % (20.0-45.0); MEAN CORPUSCULAR VOLUME 96 FL (80-99); MONOCYTES % (AUTO) 4.5 % (1.0-10.0); NEUTROPHILS % (AUTO) 58.3 % (45.0-75.0); PLATELET COUNT 385 K/UL (150-450); RED BLOOD COUNT 4.34 M/UL (4.20-5.40); RED CELL DISTRIBUTION WIDTH 16.3 % (11.6-14.8); WHITE BLOOD COUNT 9.7 K/UL (4.8-10.8)
[2016-12-22 05:36] LABS: ALANINE AMINOTRANSFERASE 10 U/L (3-33); ALBUMIN 3.3 g/dL (3.5-5.2); ALKALINE PHOSPHATASE 100 U/L (35-104); ANION GAP 8 (5-15); ASPARTATE AMINO TRANSFERASE 16 U/L (5-40); BILIRUBIN,TOTAL < 0.2 mg/dL (0.0-1.2); BLOOD UREA NITROGEN 17 mg/dL (7-23); CALCIUM 9.8 mg/dL (8.6-10.2); CARBON DIOXIDE 37 mEQ/L (20-30); CHLORIDE 100 mEQ/L (98-107); CREATININE 0.4 mg/dL (0.5-0.9); PHOSPHORUS 4.4 mg/dL (2.5-4.8); POTASSIUM 4.6 mEQ/L (3.4-4.9); SODIUM 145 mEQ/L (135-145)
[2016-12-22] MEDS: NovoLOG Insulin Flexpen SUBQ SCH ×4 (06:00→23:52)
[2016-12-22 08:00] VITALS: BP 112/71
[2016-12-22] MEDS: Gabapentin 300 MG/6 ML Soln GT SCH ×3 (08:52→18:26)
[2016-12-22] MEDS: HydrOXYzine 25mg tab GT SCH ×2 (08:52→18:26)
[2016-12-22] MEDS: Heparin 5000 units/ml inj SUBQ SCH ×2 (08:54→20:54)
--- NOTE | 2016-12-22 09:41 | Infectious Diseases Prog Note ---
Assessment/Plan Assessment/Plan Assesment: SOB- likely related to malpositioned trach +/- ?PNA- resolved Possible PNA, s/p Rx -CXR: Interstitial disease nonspecific. CHF, pneumonitis not excluded -spu cx ordered, not collected Leukocytosis- ?reactive vs 2ry to PNA vs combination- resolved -Bcx NTD -u/a WBC 2-4 COPD and chronic tracheostomy- s/p trach decanulized 12/21 , CHF, spinal fusion, DVT, s/p hip surgery, chronic pain, [place] [facility] resident Plan: -Continue to monitor off abx -s/p 5d IV Ceftriaxone/azithromycin 12/21 -s/p 1 d IV Vanco/Cefpime 12/18 -s/p 1d Levaquin 12/17 -f/u Bcx -Monitor CBC/BMP, temperatures -Aspiration precautions. Thank you for this consultation. WIll continue to follow along with you. Discussed with RN. Subjective Allergies: Coded Allergies: ACETAMINOPHEN (Unverified Allergy, Unknown, 12/17/16) CODEINE (Unverified Allergy, Unknown, 03/04/14) IODINE (Unverified Allergy, Unknown, 12/17/16) Subjective afebrile feeling better leukocytosis resolved trach decanulized Objective Vital Signs Last 24 Hour Vital Signs Date Time Temp Pulse Resp B/P (MAP) Pulse Ox O2 Delivery O2 Flow Rate FiO2 12/22/16 08:52 77 12/22/16 08:00 97.7 77 19 112/71 100 Nasal Cannula 3.0 12/22/16 07:33 81 20 Nasal Cannula 3.0 32 12/22/16 07:32 99 Nasal Cannula 3.0 32 12/22/16 07:32 Nasal Cannula 3.0 32 12/22/16 04:00 97.2 79 18 105/63 98 Nasal Cannula 3.0 12/22/16 04:00 80 12/22/16 00:00 97.7 83 18 134/75 98 Nasal Cannula 3.0 12/21/16 23:32 83 12/21/16 20:38 96 Nasal Cannula 3.0 32 12/21/16 20:38 Nasal Cannula 3.0 32 12/21/16 20:37 83 20 Nasal Cannula 3.0 32 12/21/16 20:00 97.5 68 18 120/70 98 Nasal Cannula 3.0 12/21/16 20:00 82 12/21/16 16:00 97.9 68 18 120/62 98 Nasal Cannula 3.0 12/21/16 16:00 83 12/21/16 13:09 81 22 Nasal Cannula 3.0 32 12/21/16 13:08 Nasal Cannula 3.0 32 12/21/16 13:07 98 Nasal Cannula 3.0 32 12/21/16 12:00 97.7 77 19 105/63 99 Nasal Cannula 3.0 12/21/16 12:00 78 Height (Feet): 5 Height (Inches): 7.00 Weight (Pounds): 126 Objective General Appearance: WD/WN, frail Lines, tubes and drains: peripheral, gtube HEENT: normocephalic, atraumatic; trach decanulized Neck: non-tender, normal alignment Respiratory/Chest: chest wall non-tender, lungs clear Cardiovascular/Chest: normal peripheral pulses, normal rate Abdomen: normal bowel sounds, non tender Genitourinary/Rectal: normal genital exam, normal rectal exam Extremities: normal range of motion, non-tender reviewed Laboratory Tests Test 12/22/16 04:00 White Blood Count 9.7 K/UL (4.8-10.8) Red Blood Count 4.34 M/UL (4.20-5.40) Hemoglobin 12.8 G/DL (12.0-16.0) Hematocrit 41.6 % (37.0-47.0) Mean Corpuscular Volume 96 FL (80-99) Mean Corpuscular Hemoglobin 29.4 PG (27.0-31.0) Mean Corpuscular Hemoglobin Concent 30.7 G/DL (32.0-36.0) L Red Cell Distribution Width 16.3 % (11.6-14.8) H Platelet Count 385 K/UL (150-450) Mean Platelet Volume 7.3 FL (6.5-10.1) Neutrophils (%) (Auto) 58.3 % (45.0-75.0) Lymphocytes (%) (Auto) 28.2 % (20.0-45.0) Monocytes (%) (Auto) 4.5 % (1.0-10.0) Eosinophils (%) (Auto) 7.1 % (0.0-3.0) H Basophils (%) (Auto) 1.9 % (0.0-2.0) Sodium Level 145 mEQ/L (135-145) Potassium Level 4.6 mEQ/L (3.4-4.9) Chloride Level 100 mEQ/L (98-107) Carbon Dioxide Level 37 mEQ/L (20-30) H Anion Gap 8 (5-15) Blood Urea Nitrogen 17 mg/dL (7-23) Creatinine 0.4 mg/dL (0.5-0.9) L Estimat Glomerular Filtration Rate > 60 mL/min (>60) Glucose Level 96 mg/dL (74-106) Calcium Level 9.8 mg/dL (8.6-10.2) Phosphorus Level 4.4 mg/dL (2.5-4.8) Magnesium Level 2.1 mg/dL (1.7-2.5) Total Bilirubin < 0.2 mg/dL (0.0-1.2) Aspartate Amino Transf (AST/SGOT) 16 U/L (5-40) Alanine Aminotransferase (ALT/SGPT) 10 U/L (3-33) Alkaline Phosphatase 100 U/L (35-104) Total Protein 6.6 g/dL (6.6-8.7) Albumin 3.3 g/dL (3.5-5.2) L Globulin 3.3 g/dL Albumin/Globulin Ratio 1.0 (1.0-2.7) Current Medications Medications (Trade) Dose Ordered Sig/Sandra Route PRN Reason Start Time Stop Time Status Last Admin Dose Admin Al Hydroxide/Mg Hydroxide (Mylanta II) 30 ml Q6H PRN GT dyspepsia 12/20/16 19:30 01/16/17 19:29 Albuterol/ Ipratropium (DuoNeb 0.5-3(2.5)mg/3ml) 3 ml Q4H PRN HHN Shortness of Breath 12/20/16 19:30 12/22/16 19:29 Chlorhexidine Gluconate (Chioma-Hex 2%) 1 applic QHS TOPIC 12/21/16 21:00 01/20/17 20:59 12/21/16 21:57 Dextrose (Dextrose 50%) STAT PRN IV Hypoglycemia 12/20/16 19:30 01/19/17 19:29 Digoxin (Lanoxin) 0.25 mg DAILY GT 12/21/16 09:00 01/17/17 09:29 12/22/16 08:52 Gabapentin (Neurontin) 300 mg TID GT 12/21/16 09:00 01/18/17 13:59 12/22/16 08:52 Heparin Sodium (Porcine) (Heparin 5000 units/ml) 5,000 units EVERY 12 HOURS SUBQ 12/20/16 21:00 01/17/17 08:59 12/22/16 08:54 Hydroxyzine HCl (Atarax) 25 mg BID GT 12/21/16 09:00 01/17/17 08:59 12/22/16 08:52 Insulin Aspart (NovoLOG) Q6HR SUBQ 12/21/16 12:00 01/17/17 06:29 12/21/16 22:02 Levothyroxine Sodium (Synthroid) 75 mcg ACBREAKFAST GT 12/21/16 06:30 01/19/17 06:29 12/22/16 06:17 Mirtazapine (Remeron) 7.5 mg BEDTIME GT 12/20/16 21:00 01/17/17 20:59 12/21/16 22:02 Morphine Sulfate (Morphine Sulfate) 2 mg Q4H PRN IVP For Pain 4-10 12/20/16 19:30 12/25/16 19:29 Nitroglycerin (Ntg) 0.4 mg Q5MIN X 3 DOSES PRN SL Prn Chest Pain 12/20/16 18:45 01/18/17 17:19 Ondansetron HCl (Zofran) 4 mg Q6H PRN IVP Nausea & Vomiting 12/20/16 19:30 01/16/17 19:29 Pioglitazone HCl (Actos) 15 mg DAILY GT 12/21/16 09:00 01/17/17 09:29 12/22/16 08:52 Polyethylene Glycol (Miralax) 17 gm DAILYPRN PRN ORAL Constipation 12/20/16 19:30 01/19/17 19:29 Temazepam (Restoril) 15 mg HSPRN PRN GT Insomnia 12/20/16 19:30 12/27/16 19:29 12/21/16 22:04 Lisa Cartagena M.D. Dec 22, 2016 09:41
--- NOTE | 2016-12-22 11:14 | Pulmonology Progress Note ---
Assessment/Plan Problems: (1) Purulent bronchitis (2) Acute and chronic respiratory failure ([id number]) (3) Tracheostomy malfunction (4) COPD (chronic obstructive pulmonary disease) (5) Interstitial lung disease (6) Diabetes mellitus (7) Hypothyroidism Assessment/Plan tolerating off trach, iv abx respiratory treatment check sputum psych evaluation all notes reviewed Subjective ROS Limited/Unobtainable: No Constitutional: Reports: no symptoms HEENT: Repors: no symptoms Respiratory: Reports: no symptoms Allergies: Coded Allergies: ACETAMINOPHEN (Unverified Allergy, Unknown, 12/17/16) CODEINE (Unverified Allergy, Unknown, 03/04/14) IODINE (Unverified Allergy, Unknown, 12/17/16) Objective Last 24 Hour Vital Signs Date Time Temp Pulse Resp B/P (MAP) Pulse Ox O2 Delivery O2 Flow Rate FiO2 12/22/16 08:52 77 12/22/16 08:00 97.7 77 19 112/71 100 Nasal Cannula 3.0 12/22/16 07:36 79 12/22/16 07:33 81 20 Nasal Cannula 3.0 32 12/22/16 07:32 99 Nasal Cannula 3.0 32 12/22/16 07:32 Nasal Cannula 3.0 32 12/22/16 04:00 97.2 79 18 105/63 98 Nasal Cannula 3.0 12/22/16 04:00 80 12/22/16 00:00 97.7 83 18 134/75 98 Nasal Cannula 3.0 12/21/16 23:32 83 12/21/16 20:38 96 Nasal Cannula 3.0 32 12/21/16 20:38 Nasal Cannula 3.0 32 12/21/16 20:37 83 20 Nasal Cannula 3.0 32 12/21/16 20:00 97.5 68 18 120/70 98 Nasal Cannula 3.0 12/21/16 20:00 82 12/21/16 16:00 97.9 68 18 120/62 98 Nasal Cannula 3.0 12/21/16 16:00 83 12/21/16 13:09 81 22 Nasal Cannula 3.0 32 12/21/16 13:08 Nasal Cannula 3.0 32 12/21/16 13:07 98 Nasal Cannula 3.0 32 12/21/16 12:00 97.7 77 19 105/63 99 Nasal Cannula 3.0 12/21/16 12:00 78 Intake and Output 12/22/16 12/23/16 19:00 07:00 Intake Total 230 ml Balance 230 ml Intake Free Water 50 ml Tube Feeding 130 ml Other 50 ml General Appearance: no acute distress, cachetic HEENT: normocephalic, atraumatic Respiratory/Chest: chest wall non-tender, lungs clear, normal breath sounds Cardiovascular: normal peripheral pulses, normal rate Abdomen: normal bowel sounds, soft, non tender Genitourinary: normal external genitalia Extremities: no cyanosis Skin: no rash 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, no motor/sensory deficits Laboratory Tests 12/22/16 04:00: White Blood Count 9.7, Red Blood Count 4.34, Hemoglobin 12.8, Hematocrit 41.6, Mean Corpuscular Volume 96, Mean Corpuscular Hemoglobin 29.4, Mean Corpuscular Hemoglobin Concent 30.7L, Red Cell Distribution Width 16.3H, Platelet Count 385 , Mean Platelet Volume 7.3, Neutrophils (%) (Auto) 58.3, Lymphocytes (%) (Auto) 28.2, Monocytes (%) (Auto) 4.5, Eosinophils (%) (Auto) 7.1H, Basophils (%) (Auto ) 1.9, Sodium Level 145, Potassium Level 4.6, Chloride Level 100, Carbon Dioxide Level 37H, Anion Gap 8, Blood Urea Nitrogen 17, Creatinine 0.4L, Estimat Glomerular Filtration Rate > 60, Glucose Level 96, Calcium Level 9.8, Phosphorus Level 4.4, Magnesium Level 2.1, Total Bilirubin < 0.2, Aspartate Amino Transf (AST/SGOT) 16, Alanine Aminotransferase (ALT/SGPT) 10, Alkaline Phosphatase 100, Total Protein 6.6, Albumin 3.3L, Globulin 3.3, Albumin/ Globulin Ratio 1.0 Current Medications Medications (Trade) Dose Ordered Sig/Sandra Route PRN Reason Start Time Stop Time Status Last Admin Dose Admin Al Hydroxide/Mg Hydroxide (Mylanta II) 30 ml Q6H PRN GT dyspepsia 12/20/16 19:30 01/16/17 19:29 Albuterol/ Ipratropium (DuoNeb 0.5-3(2.5)mg/3ml) 3 ml Q4H PRN HHN Shortness of Breath 12/20/16 19:30 12/22/16 19:29 Chlorhexidine Gluconate (Chioma-Hex 2%) 1 applic QHS TOPIC 12/21/16 21:00 01/20/17 20:59 12/21/16 21:57 Dextrose (Dextrose 50%) STAT PRN IV Hypoglycemia 12/20/16 19:30 01/19/17 19:29 Digoxin (Lanoxin) 0.25 mg DAILY GT 12/21/16 09:00 01/17/17 09:29 12/22/16 08:52 Gabapentin (Neurontin) 300 mg TID GT 12/21/16 09:00 01/18/17 13:59 12/22/16 08:52 Heparin Sodium (Porcine) (Heparin 5000 units/ml) 5,000 units EVERY 12 HOURS SUBQ 12/20/16 21:00 01/17/17 08:59 12/22/16 08:54 Hydroxyzine HCl (Atarax) 25 mg BID GT 12/21/16 09:00 01/17/17 08:59 12/22/16 08:52 Insulin Aspart (NovoLOG) Q6HR SUBQ 12/21/16 12:00 01/17/17 06:29 12/21/16 22:02 Levothyroxine Sodium (Synthroid) 75 mcg ACBREAKFAST GT 12/21/16 06:30 01/19/17 06:29 12/22/16 06:17 Mirtazapine (Remeron) 7.5 mg BEDTIME GT 12/20/16 21:00 01/17/17 20:59 12/21/16 22:02 Morphine Sulfate (Morphine Sulfate) 2 mg Q4H PRN IVP For Pain 4-10 12/20/16 19:30 12/25/16 19:29 Nitroglycerin (Ntg) 0.4 mg Q5MIN X 3 DOSES PRN SL Prn Chest Pain 12/20/16 18:45 01/18/17 17:19 Ondansetron HCl (Zofran) 4 mg Q6H PRN IVP Nausea & Vomiting 12/20/16 19:30 01/16/17 19:29 Pioglitazone HCl (Actos) 15 mg DAILY GT 12/21/16 09:00 01/17/17 09:29 12/22/16 08:52 Polyethylene Glycol (Miralax) 17 gm DAILYPRN PRN ORAL Constipation 12/20/16 19:30 01/19/17 19:29 Temazepam (Restoril) 15 mg HSPRN PRN GT Insomnia 12/20/16 19:30 12/27/16 19:29 12/21/16 22:04 DEDRICK SOLANO Dec 22, 2016 11:14
[2016-12-22] MEDS ORDERED: Nitroglycerin Subl 0.4mg tab SL PRN (12:00)
[2016-12-22] MEDS ORDERED: Morphine Sulfate 2mg/ml Inj IVP PRN (12:00)
[2016-12-22] MEDS ORDERED: Mylanta II UD 30ml GT PRN (12:00)
[2016-12-22] MEDS ORDERED: Albuterol/Ipratropium 3ml neb HHN PRN (12:00)
[2016-12-22 16:19] VITALS: BP 121/67
[2016-12-22] MEDS ORDERED: D5 1/2NS 1000ml IV ONE (18:21)
[2016-12-22] MEDS ORDERED: Tubing IV Secondary IV ONE (18:21)
[2016-12-22 20:00] VITALS: BP 111/62
[2016-12-22] MEDS ORDERED: Dyna-Hex 2% Top Sol 2oz TOPIC SCH (21:00)
[2016-12-22] MEDS: Ketorolac 30mg Inj IV PRN (23:43)
[2016-12-23] VITALS: BP 115/67
[2016-12-23 04:30] VITALS: BP 123/57
[2016-12-23] MEDS: NovoLOG Insulin Flexpen SUBQ SCH ×3 (05:40→18:10)
[2016-12-23 08:00] VITALS: BP 102/59
[2016-12-23] MEDS: Gabapentin 300 MG/6 ML Soln GT SCH ×3 (08:58→18:03)
[2016-12-23] MEDS: HydrOXYzine 25mg tab GT SCH ×2 (08:59→18:03)
[2016-12-23] MEDS: Heparin 5000 units/ml inj SUBQ SCH ×2 (08:59→21:15)
[2016-12-23 12:00] VITALS: BP 100/61
--- NOTE | 2016-12-23 12:21 | Infectious Diseases Prog Note ---
Assessment/Plan Assessment/Plan A; Pneumonia s/p RX COPD DM Hypothyroidism P; observe off antibiotic Subjective ROS Limited/Unobtainable: No Constitutional: Reports: no symptoms Respiratory: Reports: dry cough Cardiovascular: Reports: no symptoms Genitourinary: Reports: no symptoms Musculoskeletal: Reports: pain, other - back Allergies: Coded Allergies: ACETAMINOPHEN (Unverified Allergy, Unknown, 12/17/16) CODEINE (Unverified Allergy, Unknown, 03/04/14) IODINE (Unverified Allergy, Unknown, 12/17/16) Objective Vital Signs Last 24 Hour Vital Signs Date Time Temp Pulse Resp B/P (MAP) Pulse Ox O2 Delivery O2 Flow Rate FiO2 12/23/16 09:34 72 12/23/16 08:00 97.5 71 16 102/59 97 12/23/16 04:30 98.1 66 20 123/57 92 Room Air 12/23/16 00:00 97.7 81 20 115/67 97 Room Air 12/22/16 22:33 Nasal Cannula 12/22/16 22:33 Nasal Cannula 12/22/16 20:00 97.8 79 20 111/62 96 Nasal Cannula 2.0 12/22/16 16:19 97.0 81 20 121/67 96 Nasal Cannula 2.0 Height (Feet): 5 Height (Inches): 7.00 Weight (Pounds): 126 General Appearance: no acute distress HEENT: mucous membranes moist Respiratory/Chest: decreased breath sounds, other - O2 by cannula Cardiovascular: normal rate Abdomen: soft, non tender Extremities: no edema, other - PICC line Neurologic/Psychiatric: alert, responsive Current Medications Medications (Trade) Dose Ordered Sig/Sandra Route PRN Reason Start Time Stop Time Status Last Admin Dose Admin Al Hydroxide/Mg Hydroxide (Mylanta II) 30 ml Q6H PRN GT dyspepsia 12/22/16 12:00 01/16/17 11:59 Chlorhexidine Gluconate (Chioma-Hex 2%) 1 applic QHS TOPIC 12/22/16 21:00 01/20/17 20:59 12/22/16 20:47 Dextrose (Dextrose 50%) STAT PRN IV Hypoglycemia 12/22/16 12:00 01/19/17 11:59 Digoxin (Lanoxin) 0.25 mg DAILY GT 12/23/16 09:00 01/17/17 09:29 12/23/16 09:34 Gabapentin (Neurontin) 300 mg TID GT 12/22/16 13:00 01/18/17 13:59 12/23/16 08:58 Heparin Sodium (Porcine) (Heparin 5000 units/ml) 5,000 units EVERY 12 HOURS SUBQ 12/22/16 21:00 01/17/17 08:59 12/23/16 08:59 Hydroxyzine HCl (Atarax) 25 mg BID GT 12/22/16 18:00 01/17/17 08:59 12/23/16 08:59 Insulin Aspart (NovoLOG) Q6HR SUBQ 12/22/16 18:00 01/17/17 17:59 Ketorolac Tromethamine (Toradol 30mg) 15 mg Q6H PRN IV Severe Breakthru Pain (>7) 12/22/16 23:15 12/27/16 23:14 12/22/16 23:43 Levothyroxine Sodium (Synthroid) 75 mcg ACBREAKFAST GT 12/23/16 06:30 01/19/17 06:29 12/23/16 06:14 Mirtazapine (Remeron) 7.5 mg BEDTIME GT 12/22/16 21:00 01/17/17 20:59 12/22/16 20:47 Morphine Sulfate (Morphine Sulfate) 2 mg Q4H PRN IVP For Pain 4-10 12/22/16 12:00 12/25/16 11:59 Nitroglycerin (Ntg) 0.4 mg Q5MIN X 3 DOSES PRN SL Prn Chest Pain 12/22/16 12:00 01/18/17 17:19 Ondansetron HCl (Zofran) 4 mg Q6H PRN IVP Nausea & Vomiting 12/22/16 12:00 01/16/17 11:59 Pioglitazone HCl (Actos) 15 mg DAILY GT 12/23/16 09:00 01/17/17 09:29 12/23/16 08:58 Polyethylene Glycol (Miralax) 17 gm DAILYPRN PRN ORAL Constipation 12/22/16 12:00 01/19/17 11:59 Temazepam (Restoril) 15 mg HSPRN PRN GT Insomnia 12/22/16 12:00 12/27/16 11:59 BHARGAVI DIMAS Dec 23, 2016 12:21
[2016-12-23] MEDS: Ketorolac 30mg Inj IV PRN ×2 (15:04→21:09)
[2016-12-23] MEDS ORDERED: Fleet's Enema 133ml RECTAL ONE (15:15)
[2016-12-23 16:00] VITALS: BP 95/50
[2016-12-23 20:00] VITALS: BP 103/55
[2016-12-23] MEDS: Dyna-Hex 2% Top Sol 2oz TOPIC SCH (21:09)
--- NOTE | 2016-12-23 22:55 | Pulmonology Progress Note ---
Assessment/Plan Problems: (1) Purulent bronchitis (2) Acute and chronic respiratory failure ([id number]) (3) Tracheostomy malfunction (4) COPD (chronic obstructive pulmonary disease) (5) Interstitial lung disease (6) Diabetes mellitus (7) Hypothyroidism Assessment/Plan tolerating off trach, iv abx respiratory treatment check sputum psych evaluation all notes reviewed awaiting discharge Subjective ROS Limited/Unobtainable: No Constitutional: Reports: no symptoms HEENT: Repors: no symptoms Allergies: Coded Allergies: ACETAMINOPHEN (Unverified Allergy, Unknown, 12/17/16) CODEINE (Unverified Allergy, Unknown, 03/04/14) IODINE (Unverified Allergy, Unknown, 12/17/16) Objective Last 24 Hour Vital Signs Date Time Temp Pulse Resp B/P (MAP) Pulse Ox O2 Delivery O2 Flow Rate FiO2 12/23/16 20:00 97.5 80 21 103/55 98 Nasal Cannula 2.0 12/23/16 19:20 99 Nasal Cannula 3.0 32 12/23/16 19:20 Nasal Cannula 3.0 32 12/23/16 19:20 83 20 Nasal Cannula 3.0 32 12/23/16 16:00 97.9 86 15 95/50 100 12/23/16 12:00 94.0 87 16 100/61 97 12/23/16 09:34 72 12/23/16 08:00 97.5 71 16 102/59 97 12/23/16 04:30 98.1 66 20 123/57 92 Room Air 12/23/16 00:00 97.7 81 20 115/67 97 Room Air Intake and Output 12/23/16 12/24/16 19:00 07:00 Intake Total 815 ml Output Total 650 ml Balance 165 ml Free Water 100 ml Tube Feeding 715 ml Output Urine Total 650 ml # Bowel Movements 2 Objective General Appearance: no acute distress, cachetic HEENT: normocephalic, atraumatic Respiratory/Chest: chest wall non-tender, lungs clear, normal breath sounds Cardiovascular: normal peripheral pulses, normal rate Abdomen: normal bowel sounds, soft, non tender Genitourinary: normal external genitalia Extremities: no cyanosis Skin: no rash Current Medications Medications (Trade) Dose Ordered Sig/Sandra Route PRN Reason Start Time Stop Time Status Last Admin Dose Admin Al Hydroxide/Mg Hydroxide (Mylanta II) 30 ml Q6H PRN GT dyspepsia 12/22/16 12:00 01/16/17 11:59 Chlorhexidine Gluconate (Chioma-Hex 2%) 1 applic DAILY@1999 TOPIC 12/23/16 20:00 01/22/17 19:59 12/23/16 21:09 Dextrose (Dextrose 50%) STAT PRN IV Hypoglycemia 12/22/16 12:00 01/19/17 11:59 Digoxin (Lanoxin) 0.25 mg DAILY GT 12/23/16 09:00 01/17/17 09:29 12/23/16 09:34 Gabapentin (Neurontin) 300 mg TID GT 12/22/16 13:00 01/18/17 13:59 12/23/16 18:03 Heparin Sodium (Porcine) (Heparin 5000 units/ml) 5,000 units EVERY 12 HOURS SUBQ 12/22/16 21:00 01/17/17 08:59 12/23/16 21:15 Hydroxyzine HCl (Atarax) 25 mg BID GT 12/22/16 18:00 01/17/17 08:59 12/23/16 18:03 Insulin Aspart (NovoLOG) Q6HR SUBQ 12/22/16 18:00 01/17/17 17:59 12/23/16 18:10 Ketorolac Tromethamine (Toradol 30mg) 15 mg Q6H PRN IV Severe Breakthru Pain (>7) 12/22/16 23:15 12/27/16 23:14 12/23/16 21:09 Levothyroxine Sodium (Synthroid) 75 mcg ACBREAKFAST GT 12/23/16 06:30 01/19/17 06:29 12/23/16 06:14 Mirtazapine (Remeron) 7.5 mg BEDTIME GT 12/22/16 21:00 01/17/17 20:59 12/23/16 21:09 Morphine Sulfate (Morphine Sulfate) 2 mg Q4H PRN IVP For Pain 4-10 12/22/16 12:00 12/25/16 11:59 Nitroglycerin (Ntg) 0.4 mg Q5MIN X 3 DOSES PRN SL Prn Chest Pain 12/22/16 12:00 01/18/17 17:19 Ondansetron HCl (Zofran) 4 mg Q6H PRN IVP Nausea & Vomiting 12/22/16 12:00 01/16/17 11:59 Pioglitazone HCl (Actos) 15 mg DAILY GT 12/23/16 09:00 01/17/17 09:29 12/23/16 08:58 Polyethylene Glycol (Miralax) 17 gm DAILYPRN PRN ORAL Constipation 12/22/16 12:00 01/19/17 11:59 Temazepam (Restoril) 15 mg HSPRN PRN GT Insomnia 12/22/16 12:00 12/27/16 11:59 DEDRICK SOLANO Dec 23, 2016 22:55
[2016-12-24] VITALS: BP 111/62
[2016-12-24] MEDS: Ketorolac 30mg Inj IV PRN ×2 (03:27→16:58)
[2016-12-24 04:00] VITALS: BP 104/62
[2016-12-24] MEDS: NovoLOG Insulin Flexpen SUBQ SCH ×4 (05:34→18:00)
[2016-12-24 08:00] VITALS: BP 121/50
--- NOTE | 2016-12-24 08:27 | Cardiology Report ---
APPROVED REPORT EXAM: Two-dimensional and M-mode echocardiogram with Doppler and color Doppler. INDICATION Other M-Mode DIMENSIONS IVSd1.7 (0.7-1.1cm)Left Atrium (MM)2.5 (1.6-4.0cm) LVDd3.7 (3.5-5.6cm)Aortic Root2.8 (2.0-3.7cm) PWd1.2 (0.7-1.1cm)Aortic Cusp Exc.2.2 (1.5-2.0cm) LVDs1.9 (2.5-4.0cm) PWs1.9 cm Normal left ventricular chamber size, systolic function and wall motion. Left ventricular ejection fraction estimated to be 60 %. Moderate left ventricular hypertrophy. Anterior Echo-free space, may be due to pericardial fat or effusion. All other cardiac chamber sizes are within normal limits. Mild focal aortic valve sclerosis with adequate cusp excursion. Mildly thickened mitral valve leaflets with normal excursion. Mild mitral annulus and aortic root calcification. Normal pulmonic valve structure. Normal tricuspid valve structure. IVC at normal size with physiological collapse. A color flow and spectral Doppler study was performed and revealed: Moderate to severe aortic insufficiency. Mild mitral regurgitation. Mitral diastolic velocities suggest reduced left ventricular relaxation c/w impaired relaxation grade one diastolic dysfunction. Mild tricuspid regurgitation. Tricuspid systolic velocities suggests peak right ventricular systolic pressure of 38 mmHg, consistent with mild pulmonary hypertension. Trace pulmonic regurgitation present.
[2016-12-24] MEDS: HydrOXYzine 25mg tab GT SCH ×2 (09:37→18:06)
[2016-12-24] MEDS: Gabapentin 300 MG/6 ML Soln GT SCH ×3 (09:37→18:06)
[2016-12-24] MEDS: Heparin 5000 units/ml inj SUBQ SCH ×2 (09:42→20:39)
--- NOTE | 2016-12-24 12:46 | Wound Care Consultation ---
Wound Assessment Wound Assessment #1: Wound Number: 1 Wound Present on Admission: Yes New Wound: No Status Change of Wound: No Wound Location Body Site Modif: mid Wound Location Body Site: other - sacrococcygeal ,right and left buttock. Wound Type: pressure ulcer Fahad Test: Does not Fahad Pressure Ulcer Stage: II - scattered Wound Thickness: Partial Thickness Percent of Wound [place]/Red: 100 Wound Drainage Description: Serosanguineous Wound Drainage Amount: Scant Wound Drainage Odor: None/Absent Tissue Surrounding Wound: Macerated Wound General Appearance: Reddened, Draining Wound Assessment #2: Wound Number: 2 Wound Present on Admission: Yes New Wound: No Status Change of Wound: No Wound Location Body Site Modif: left, upper Wound Location Body Site: chest Wound Type: traumatic injury Fahad Test: Does not Fahad Wound Thickness: Partial Thickness Wound Length: 2.0 Wound Width: 5.0 Wound Depth: 0.1 Percent of Wound [place]/Red: 100 Wound Drainage Description: Serosanguineous Wound Drainage Amount: Scant Wound Drainage Odor: None/Absent Tissue Surrounding Wound: Erythemic Wound General Appearance: Reddened, Draining Wound Assessment #3: Wound Number: 3 Wound Present on Admission: No New Wound: No - per patient has multiple history of surgery to site, scar tissue present. Status Change of Wound: Yes Wound Location Body Site Modif: mid, lower Wound Location Body Site: back Wound Type: scar - resurfaced scar tissue (open). Fahad Test: Does not Fahad Wound Thickness: Full Thickness Wound Length: 6.5 Wound Width: 2.0 Wound Depth: 0.2 Percent of Wound [place]/Red: 90 Percent of Wound Bed Yellow/Wh: 10 Wound Drainage Description: Serosanguineous Wound Drainage Amount: Moderate Wound Drainage Odor: None/Absent Tissue Surrounding Wound: Macerated Wound General Appearance: Reddened, Draining Wound Assessment #4: Wound Number: 4 Wound Present on Admission: No New Wound: No Status Change of Wound: No Wound Location Body Site Modif: left Wound Location Body Site: trochanter Wound Type: scar - Full thickness scar tissue. Fahad Test: Does not Fahad Wound Thickness: Full Thickness Percent of Wound [place]/Red: 100 Wound Drainage Amount: None Wound Drainage Odor: None/Absent Tissue Surrounding Wound: Intact Wound General Appearance: Clean/Dry Wound Comment #1 Extensive scattered stage II pressure ulcer on Sacrococcygeal, left and right buttock. #2 Left upper chest skin tear with partial thickness skin loss. #3 Mid lower back full thickness scar, resurfaced open wound #4 Left trochanter intact full thickness scar tissue. #5 tracheostomy site noted with two intact/clean sutures. Recommendation -Local wound care per protocol -Offload both heels -Heel protector on both heels -Optimize nutrition -Keep clean and dry -Turn and reposition - Apply Low air loss mattress SPR mattress for wound and skin management. -Assess and f/u accordingly for any changes MARIA LUISA SERRA Dec 24, 2016 12:46
--- NOTE | 2016-12-24 12:46 | Wound Care Consultation ---
Wound Assessment Wound Assessment #1: Wound Number: 1 Wound Present on Admission: Yes New Wound: No Status Change of Wound: No Wound Location Body Site Modif: mid Wound Location Body Site: other - sacrococcygeal ,right and left buttock. Wound Type: pressure ulcer Fahad Test: Does not Fahad Pressure Ulcer Stage: II - scattered Wound Thickness: Partial Thickness Percent of Wound [place]/Red: 100 Wound Drainage Description: Serosanguineous Wound Drainage Amount: Scant Wound Drainage Odor: None/Absent Tissue Surrounding Wound: Macerated Wound General Appearance: Reddened, Draining Wound Assessment #2: Wound Number: 2 Wound Present on Admission: Yes New Wound: No Status Change of Wound: No Wound Location Body Site Modif: left, upper Wound Location Body Site: chest Wound Type: traumatic injury Fahad Test: Does not Fahad Wound Thickness: Partial Thickness Wound Length: 2.0 Wound Width: 5.0 Wound Depth: 0.1 Percent of Wound [place]/Red: 100 Wound Drainage Description: Serosanguineous Wound Drainage Amount: Scant Wound Drainage Odor: None/Absent Tissue Surrounding Wound: Erythemic Wound General Appearance: Reddened, Draining Wound Assessment #3: Wound Number: 3 Wound Present on Admission: No New Wound: No - per patient has multiple history of surgery to site, scar tissue present. Status Change of Wound: Yes Wound Location Body Site Modif: mid, lower Wound Location Body Site: back Wound Type: scar - resurfaced scar tissue (open). Fahad Test: Does not Fahad Wound Thickness: Full Thickness Wound Length: 6.5 Wound Width: 2.0 Wound Depth: 0.2 Percent of Wound [place]/Red: 90 Percent of Wound Bed Yellow/Wh: 10 Wound Drainage Description: Serosanguineous Wound Drainage Amount: Moderate Wound Drainage Odor: None/Absent Tissue Surrounding Wound: Macerated Wound General Appearance: Reddened, Draining Wound Assessment #4: Wound Number: 4 Wound Present on Admission: No New Wound: No Status Change of Wound: No Wound Location Body Site Modif: left Wound Location Body Site: trochanter Wound Type: scar - Full thickness scar tissue. Fahad Test: Does not Fahad Wound Thickness: Full Thickness Percent of Wound [place]/Red: 100 Wound Drainage Amount: None Wound Drainage Odor: None/Absent Tissue Surrounding Wound: Intact Wound General Appearance: Clean/Dry Wound Comment #1 Extensive scattered stage II pressure ulcer on Sacrococcygeal, left and right buttock. #2 Left upper chest skin tear with partial thickness skin loss. #3 Mid lower back full thickness scar, resurfaced open wound #4 Left trochanter intact full thickness scar tissue. #5 tracheostomy site noted with two intact/clean sutures. Recommendation -Local wound care per protocol -Offload both heels -Heel protector on both heels -Optimize nutrition -Keep clean and dry -Turn and reposition - Apply Low air loss mattress SPR mattress for wound and skin management. -Assess and f/u accordingly for any changes MARIA LUISA SERRA Dec 24, 2016 12:46
--- NOTE | 2016-12-24 12:46 | Wound Care Consultation ---
Wound Assessment Wound Assessment #1: Wound Number: 1 Wound Present on Admission: Yes New Wound: No Status Change of Wound: No Wound Location Body Site Modif: mid Wound Location Body Site: other - sacrococcygeal ,right and left buttock. Wound Type: pressure ulcer Fahad Test: Does not Fahad Pressure Ulcer Stage: II - scattered Wound Thickness: Partial Thickness Percent of Wound [place]/Red: 100 Wound Drainage Description: Serosanguineous Wound Drainage Amount: Scant Wound Drainage Odor: None/Absent Tissue Surrounding Wound: Macerated Wound General Appearance: Reddened, Draining Wound Assessment #2: Wound Number: 2 Wound Present on Admission: Yes New Wound: No Status Change of Wound: No Wound Location Body Site Modif: left, upper Wound Location Body Site: chest Wound Type: traumatic injury Fahad Test: Does not Fahad Wound Thickness: Partial Thickness Wound Length: 2.0 Wound Width: 5.0 Wound Depth: 0.1 Percent of Wound [place]/Red: 100 Wound Drainage Description: Serosanguineous Wound Drainage Amount: Scant Wound Drainage Odor: None/Absent Tissue Surrounding Wound: Erythemic Wound General Appearance: Reddened, Draining Wound Assessment #3: Wound Number: 3 Wound Present on Admission: No New Wound: No - per patient has multiple history of surgery to site, scar tissue present. Status Change of Wound: Yes Wound Location Body Site Modif: mid, lower Wound Location Body Site: back Wound Type: scar - resurfaced scar tissue (open). Fahad Test: Does not Fahad Wound Thickness: Full Thickness Wound Length: 6.5 Wound Width: 2.0 Wound Depth: 0.2 Percent of Wound [place]/Red: 90 Percent of Wound Bed Yellow/Wh: 10 Wound Drainage Description: Serosanguineous Wound Drainage Amount: Moderate Wound Drainage Odor: None/Absent Tissue Surrounding Wound: Macerated Wound General Appearance: Reddened, Draining Wound Assessment #4: Wound Number: 4 Wound Present on Admission: No New Wound: No Status Change of Wound: No Wound Location Body Site Modif: left Wound Location Body Site: trochanter Wound Type: scar - Full thickness scar tissue. Fahad Test: Does not Fahad Wound Thickness: Full Thickness Percent of Wound [place]/Red: 100 Wound Drainage Amount: None Wound Drainage Odor: None/Absent Tissue Surrounding Wound: Intact Wound General Appearance: Clean/Dry Wound Comment #1 Extensive scattered stage II pressure ulcer on Sacrococcygeal, left and right buttock. #2 Left upper chest skin tear with partial thickness skin loss. #3 Mid lower back full thickness scar, resurfaced open wound #4 Left trochanter intact full thickness scar tissue. #5 tracheostomy site noted with two intact/clean sutures. Recommendation -Local wound care per protocol -Offload both heels -Heel protector on both heels -Optimize nutrition -Keep clean and dry -Turn and reposition - Apply Low air loss mattress SPR mattress for wound and skin management. -Assess and f/u accordingly for any changes MARIA LUISA SERRA Dec 24, 2016 12:46
[2016-12-24 16:15] VITALS: BP 106/68
[2016-12-24 20:00] VITALS: BP 112/64
[2016-12-24] MEDS: Dyna-Hex 2% Top Sol 2oz TOPIC SCH (20:33)
--- NOTE | 2016-12-24 22:27 | Pulmonology Progress Note ---
Assessment/Plan Problems: (1) Purulent bronchitis (2) Acute and chronic respiratory failure ([id number]) (3) Tracheostomy malfunction (4) COPD (chronic obstructive pulmonary disease) (5) Interstitial lung disease (6) Diabetes mellitus (7) Hypothyroidism Assessment/Plan tolerating off trach, iv abx respiratory treatment check sputum psych evaluation all notes reviewed Subjective ROS Limited/Unobtainable: Yes Constitutional: Reports: fever, chills, fatigue, anorexia Respiratory: Reports: productive cough, sputum, shortness of breath, dyspnea on exertion Cardiovascular: Reports: chest pain Neurologic: Reports: weakness, confusion Skin: Reports: rash, ulcer Endocrine: Reports: abnormal blood sugar Allergies: Coded Allergies: ACETAMINOPHEN (Unverified Allergy, Unknown, 12/17/16) CODEINE (Unverified Allergy, Unknown, 03/04/14) IODINE (Unverified Allergy, Unknown, 12/17/16) Objective Last 24 Hour Vital Signs Date Time Temp Pulse Resp B/P (MAP) Pulse Ox O2 Delivery O2 Flow Rate FiO2 12/24/16 20:00 97.7 65 21 112/64 93 Room Air 12/24/16 17:28 97.9 12/24/16 16:15 98.1 79 21 106/68 96 Nasal Cannula 2.0 12/24/16 09:36 68 12/24/16 08:00 97.9 68 20 121/50 98 Nasal Cannula 2.0 12/24/16 07:48 98 Nasal Cannula 3.0 32 12/24/16 07:48 80 16 Nasal Cannula 3.0 32 12/24/16 07:48 Nasal Cannula 3.0 32 12/24/16 04:00 97.3 79 21 104/62 97 Nasal Cannula 12/24/16 00:00 97.6 67 20 111/62 96 Nasal Cannula 2.0 Intake and Output 12/24/16 12/25/16 19:00 07:00 Intake Total 865 ml Output Total 400 ml 1000 ml Balance 465 ml -1000 ml Free Water 150 ml Tube Feeding 715 ml Output Urine Total 400 ml 1000 ml General Appearance: no acute distress HEENT: normocephalic, atraumatic, PERRL Respiratory/Chest: chest wall tender, decreased breath sounds, accessory muscle use, crackles/rales, rhonchi Cardiovascular: normal peripheral pulses, normal rate, regular rhythm, no JVD Abdomen: normal bowel sounds, soft, non tender, no organomegaly, non distended Genitourinary: normal external genitalia Extremities: no cyanosis Skin: rash, lesions, ulcers Neurologic/Psychiatric: disoriented Laboratory Tests 12/24/16 04:45: Digoxin Level 1.1 Current Medications Medications (Trade) Dose Ordered Sig/Sandra Route PRN Reason Start Time Stop Time Status Last Admin Dose Admin Al Hydroxide/Mg Hydroxide (Mylanta II) 30 ml Q6H PRN GT dyspepsia 12/22/16 12:00 01/16/17 11:59 Chlorhexidine Gluconate (Chioma-Hex 2%) 1 applic DAILY@1999 TOPIC 12/23/16 20:00 01/22/17 19:59 12/24/16 20:33 Dextrose (Dextrose 50%) STAT PRN IV Hypoglycemia 12/22/16 12:00 01/19/17 11:59 Digoxin (Lanoxin) 0.25 mg DAILY GT 12/23/16 09:00 01/17/17 09:29 12/24/16 09:36 Gabapentin (Neurontin) 300 mg TID GT 12/22/16 13:00 01/18/17 13:59 12/24/16 18:06 Heparin Sodium (Porcine) (Heparin 5000 units/ml) 5,000 units EVERY 12 HOURS SUBQ 12/22/16 21:00 01/17/17 08:59 12/24/16 20:39 Hydroxyzine HCl (Atarax) 25 mg BID GT 12/22/16 18:00 01/17/17 08:59 12/24/16 18:06 Insulin Aspart (NovoLOG) Q6HR SUBQ 12/22/16 18:00 01/17/17 17:59 12/23/16 18:10 Ketorolac Tromethamine (Toradol 30mg) 15 mg Q6H PRN IV Severe Breakthru Pain (>7) 12/22/16 23:15 12/27/16 23:14 12/24/16 16:58 Levothyroxine Sodium (Synthroid) 75 mcg ACBREAKFAST GT 12/23/16 06:30 01/19/17 06:29 12/23/16 06:14 Mirtazapine (Remeron) 7.5 mg BEDTIME GT 12/22/16 21:00 01/17/17 20:59 10/9/17 20:33 Morphine Sulfate (Morphine Sulfate) 2 mg Q4H PRN IVP For Pain 4-10 12/22/16 12:00 12/25/16 11:59 Nitroglycerin (Ntg) 0.4 mg Q5MIN X 3 DOSES PRN SL Prn Chest Pain 12/22/16 12:00 01/18/17 17:19 Ondansetron HCl (Zofran) 4 mg Q6H PRN IVP Nausea & Vomiting 12/22/16 12:00 01/16/17 11:59 Pioglitazone HCl (Actos) 15 mg DAILY GT 12/23/16 09:00 01/17/17 09:29 12/24/16 09:37 Polyethylene Glycol (Miralax) 17 gm DAILYPRN PRN ORAL Constipation 12/22/16 12:00 01/19/17 11:59 Temazepam (Restoril) 15 mg HSPRN PRN GT Insomnia 12/22/16 12:00 12/27/16 11:59 DEDRICK SOLANO Dec 24, 2016 22:27
[2016-12-25] VITALS: BP 115/68
[2016-12-25 04:00] VITALS: BP 100/59
[2016-12-25] MEDS: Ketorolac 30mg Inj IV PRN ×2 (05:26→20:39)
[2016-12-25] MEDS: NovoLOG Insulin Flexpen SUBQ SCH ×4 (05:57→18:00)
[2016-12-25 08:30] VITALS: BP 93/54
[2016-12-25] MEDS: HydrOXYzine 25mg tab GT SCH ×2 (10:08→18:00)
[2016-12-25] MEDS: Gabapentin 300 MG/6 ML Soln GT SCH ×3 (10:09→18:00)
[2016-12-25] MEDS: Heparin 5000 units/ml inj SUBQ SCH ×2 (10:10→20:44)
[2016-12-25 11:59] VITALS: BP 102/61
[2016-12-25 16:00] VITALS: BP 100/49
--- NOTE | 2016-12-25 18:30 | Pulmonology Progress Note ---
Assessment/Plan Problems: (1) Purulent bronchitis (2) Acute and chronic respiratory failure ([id number]) (3) Tracheostomy malfunction (4) COPD (chronic obstructive pulmonary disease) (5) Interstitial lung disease (6) Diabetes mellitus (7) Hypothyroidism Assessment/Plan tolerating off trach, respiratory treatment check sputum psych evaluation all notes reviewed awaiting discharge Subjective ROS Limited/Unobtainable: No Constitutional: Reports: no symptoms Respiratory: Reports: no symptoms Allergies: Coded Allergies: ACETAMINOPHEN (Unverified Allergy, Unknown, 12/17/16) CODEINE (Unverified Allergy, Unknown, 03/04/14) IODINE (Unverified Allergy, Unknown, 12/17/16) Objective Last 24 Hour Vital Signs Date Time Temp Pulse Resp B/P (MAP) Pulse Ox O2 Delivery O2 Flow Rate FiO2 12/25/16 16:00 97.7 61 17 100/49 98 Nasal Cannula 12/25/16 11:59 97.7 64 20 102/61 97 Nasal Cannula 2.0 12/25/16 10:09 71 12/25/16 08:30 98.2 71 20 93/54 98 Nasal Cannula 2.0 12/25/16 07:51 Nasal Cannula 3.0 32 12/25/16 07:50 97 Nasal Cannula 3.0 32 12/25/16 07:49 76 20 Nasal Cannula 3.0 32 12/25/16 04:00 97.3 76 18 100/59 96 Nasal Cannula 3.0 12/25/16 00:00 97.5 65 20 115/68 98 Nasal Cannula 2.0 12/24/16 20:00 97.7 65 21 112/64 93 Room Air 12/24/16 19:00 Nasal Cannula 3.0 32 12/24/16 19:00 79 20 Nasal Cannula 3.0 32 12/24/16 19:00 99 Nasal Cannula 3.0 32 Intake and Output 12/25/16 12/26/16 19:00 07:00 # Bowel Movements 1 Objective General Appearance: no acute distress, cachetic HEENT: normocephalic, atraumatic Respiratory/Chest: chest wall non-tender, lungs clear, normal breath sounds Cardiovascular: normal peripheral pulses, normal rate Abdomen: normal bowel sounds, soft, non tender Genitourinary: normal external genitalia Extremities: no cyanosis Skin: no rash Current Medications Medications (Trade) Dose Ordered Sig/Sandra Route PRN Reason Start Time Stop Time Status Last Admin Dose Admin Al Hydroxide/Mg Hydroxide (Mylanta II) 30 ml Q6H PRN GT dyspepsia 12/22/16 12:00 01/16/17 11:59 Chlorhexidine Gluconate ([place]-Hex 2%) 1 applic DAILY@2000 TOPIC 12/23/16 20:00 01/22/17 19:59 12/24/16 20:33 Dextrose (Dextrose 50%) STAT PRN IV Hypoglycemia 12/22/16 12:00 01/19/17 11:59 Digoxin (Lanoxin) 0.25 mg DAILY GT 12/23/16 09:00 01/17/17 09:29 12/25/16 10:09 Gabapentin (Neurontin) 300 mg TID GT 12/22/16 13:00 01/18/17 13:59 12/25/16 14:20 Heparin Sodium (Porcine) (Heparin 5000 units/ml) 5,000 units EVERY 12 HOURS SUBQ 12/22/16 21:00 01/17/17 08:59 12/25/16 10:10 Hydroxyzine HCl (Atarax) 25 mg BID GT 12/22/16 18:00 01/17/17 08:59 12/25/16 10:08 Insulin Aspart (NovoLOG) Q6HR SUBQ 12/22/16 18:00 01/17/17 17:59 12/23/16 18:10 Ketorolac Tromethamine (Toradol 30mg) 15 mg Q6H PRN IV Severe Breakthru Pain (>7) 12/22/16 23:15 12/27/16 23:14 12/25/16 05:26 Levothyroxine Sodium (Synthroid) 75 mcg ACBREAKFAST GT 12/23/16 06:30 01/19/17 06:29 12/25/16 05:39 Mirtazapine (Remeron) 7.5 mg BEDTIME GT 12/22/16 21:00 01/17/17 20:59 12/24/16 20:33 Nitroglycerin (Ntg) 0.4 mg Q5MIN X 3 DOSES PRN SL Prn Chest Pain 12/22/16 12:00 01/18/17 17:19 Ondansetron HCl (Zofran) 4 mg Q6H PRN IVP Nausea & Vomiting 12/22/16 12:00 01/16/17 11:59 Pioglitazone HCl (Actos) 15 mg DAILY GT 12/23/16 09:00 01/17/17 09:29 12/25/16 10:09 Polyethylene Glycol (Miralax) 17 gm DAILYPRN PRN ORAL Constipation 12/22/16 12:00 01/19/17 11:59 Temazepam (Restoril) 15 mg HSPRN PRN GT Insomnia 12/22/16 12:00 12/27/16 11:59 DEDRICK SOLANO Dec 25, 2016 18:30
[2016-12-25 20:00] VITALS: BP 107/60
--- NOTE | 2016-12-25 20:07 | Infectious Diseases Prog Note ---
Assessment/Plan Assessment/Plan Assesment: SOB- likely related to malpositioned trach +/- ?PNA- resolved Possible PNA, s/p Rx -CXR: Interstitial disease nonspecific. CHF, pneumonitis not excluded -spu cx ordered, not collected Leukocytosis- ?reactive vs 2ry to PNA vs combination- resolved -Bcx Neg -u/a WBC 2-4 COPD and chronic tracheostomy- s/p trach decanulized 12/21 , CHF, spinal fusion, DVT, s/p hip surgery, chronic pain, [facility] resident Plan: -Continue to monitor off abx -s/p 5d IV Ceftriaxone/azithromycin 12/21 -s/p 1 d IV Vanco/Cefpime 12/18 -s/p 1d Levaquin 12/17 -Monitor CBC/BMP, temperatures -Aspiration precautions. Thank you for this consultation. WIll continue to follow along with you. Discussed with RN. Subjective Allergies: Coded Allergies: ACETAMINOPHEN (Unverified Allergy, Unknown, 12/17/16) CODEINE (Unverified Allergy, Unknown, 03/04/14) IODINE (Unverified Allergy, Unknown, 12/17/16) Subjective afebrile no labs since 12/22 bcx neg Objective Vital Signs Last 24 Hour Vital Signs Date Time Temp Pulse Resp B/P (MAP) Pulse Ox O2 Delivery O2 Flow Rate FiO2 12/25/16 16:00 97.7 61 17 100/49 98 Nasal Cannula 12/25/16 11:59 97.7 64 20 102/61 97 Nasal Cannula 2.0 12/25/16 10:09 71 12/25/16 08:30 98.2 71 20 93/54 98 Nasal Cannula 2.0 12/25/16 07:51 Nasal Cannula 3.0 32 12/25/16 07:50 97 Nasal Cannula 3.0 32 12/25/16 07:49 76 20 Nasal Cannula 3.0 32 12/25/16 04:00 97.3 76 18 100/59 96 Nasal Cannula 3.0 12/25/16 00:00 97.5 65 20 115/68 98 Nasal Cannula 2.0 Height (Feet): 5 Height (Inches): 7.00 Weight (Pounds): 126 Objective General Appearance: WD/WN, frail Lines, tubes and drains: peripheral, gtube HEENT: normocephalic, atraumatic; trach decanulized Neck: non-tender, normal alignment Respiratory/Chest: chest wall non-tender, lungs clear Cardiovascular/Chest: normal peripheral pulses, normal rate Abdomen: normal bowel sounds, non tender Genitourinary/Rectal: normal genital exam, normal rectal exam Extremities: normal range of motion, non-tender reviewed reviewed Current Medications Medications (Trade) Dose Ordered Sig/Sandra Route PRN Reason Start Time Stop Time Status Last Admin Dose Admin Al Hydroxide/Mg Hydroxide (Mylanta II) 30 ml Q6H PRN GT dyspepsia 12/22/16 12:00 01/16/17 11:59 Chlorhexidine Gluconate (Chioma-Hex 2%) 1 applic DAILY@1999 TOPIC 12/23/16 20:00 01/22/17 19:59 12/24/16 20:33 Dextrose (Dextrose 50%) STAT PRN IV Hypoglycemia 12/22/16 12:00 01/19/17 11:59 Digoxin (Lanoxin) 0.25 mg DAILY GT 12/23/16 09:00 01/17/17 09:29 12/25/16 10:09 Gabapentin (Neurontin) 300 mg TID GT 12/22/16 13:00 01/18/17 13:59 12/25/16 14:20 Heparin Sodium (Porcine) (Heparin 5000 units/ml) 5,000 units EVERY 12 HOURS SUBQ 12/22/16 21:00 01/17/17 08:59 12/25/16 10:10 Hydroxyzine HCl (Atarax) 25 mg BID GT 12/22/16 18:00 01/17/17 08:59 12/25/16 10:08 Insulin Aspart (NovoLOG) Q6HR SUBQ 12/22/16 18:00 01/17/17 17:59 12/23/16 18:10 Ketorolac Tromethamine (Toradol 30mg) 15 mg Q6H PRN IV Severe Breakthru Pain (>7) 12/22/16 23:15 12/27/16 23:14 12/25/16 05:26 Levothyroxine Sodium (Synthroid) 75 mcg ACBREAKFAST GT 12/23/16 06:30 01/19/17 06:29 12/25/16 05:39 Mirtazapine (Remeron) 7.5 mg BEDTIME GT 12/22/16 21:00 11/2/17 20:59 12/24/16 20:33 Nitroglycerin (Ntg) 0.4 mg Q5MIN X 3 DOSES PRN SL Prn Chest Pain 12/22/16 12:00 01/18/17 17:19 Ondansetron HCl (Zofran) 4 mg Q6H PRN IVP Nausea & Vomiting 12/22/16 12:00 01/16/17 11:59 Pioglitazone HCl (Actos) 15 mg DAILY GT 12/23/16 09:00 01/17/17 09:29 12/25/16 10:09 Polyethylene Glycol (Miralax) 17 gm DAILYPRN PRN ORAL Constipation 12/22/16 12:00 01/19/17 11:59 Temazepam (Restoril) 15 mg HSPRN PRN GT Insomnia 12/22/16 12:00 12/27/16 11:59 Lisa Cartagena M.D. Dec 25, 2016 20:07
[2016-12-25] MEDS: Dyna-Hex 2% Top Sol 2oz TOPIC SCH (20:39)
--- NOTE | 2016-12-25 23:02 | Consultation ---
History of Present Illness General Chief Complaint: Dyspnea/Respdistress Reason for Consultation: possible pna, leukocytosis Present Illness HPI 66 yo female with hx of depresion and mmp c/o pain and sob. the pt stated that he has wants to . during my eval the pt endorsed depressed mood and anhedonia. she was minimizing her sxs however the pt stated that she does not endorse si but she has thought of "not being here." the pt does not endorse psychotic sxs Allergies: Coded Allergies: ACETAMINOPHEN (Unverified Allergy, Unknown, 12/17/16) CODEINE (Unverified Allergy, Unknown, 03/04/14) IODINE (Unverified Allergy, Unknown, 12/17/16) Medication History Scheduled Ascorbic Acid* (Ascorbic Acid*), 500 MG GT TWICE A DAY, (Reported) Azithromycin* (Zithromax*), 500 MG GT QPM, (Reported) Cefdinir (Cefdinir), 300 MG PO BID, (Reported) Digoxin* (Digoxin*), 0.25 MG GT DAILY, (Reported) Docusate Sodium* (Docusate Sodium*), 100 MG GT TWICE A DAY, (Reported) Gabapentin* (Gabapentin*), 200 MG GT THREE TIMES A DAY, (Reported) Hydroxyzine Hcl (Hydroxyzine Hcl), 25 MG GT BID, (Reported) Ipratropium/Albuterol Sulfate (DuoNeb 0.5-3(2.5)mg/3ml), 3 ML [id number] EVERY 2 HOURS, (Reported) Levothyroxine Sodium* (Levothyroxine Sodium*), 75 MCG GT DAILY, (Reported) Levothyroxine Sodium* (Levothyroxine Sodium*), 75 MCG GT DAILY, (Reported) Mirtazapine* (Mirtazapine*), 7.5 MG GT BEDTIME, (Reported) Mirtazapine* (Remeron*), 7.5 MG GT BEDTIME, (Reported) Pioglitazone Hcl* (Actos*), 15 MG GT DAILY, (Reported) Scheduled PRN Ipratropium/Albuterol Sulfate (DuoNeb 0.5-3(2.5)mg/3ml), 3 ML HHN Q4HR PRN for Shortness of Breath, (Reported) Morphine Sulfate* (Morphine Sulfate*), 2 MG IV Q4HR PRN for For Pain, (Reported) Nitroglycerin (Nitroglycerin), 0.4 MG SL q5mins x 3 doses PRN for chest pain, ( Reported) Ondansetron* (Zofran*), 4 MG GT Q6H PRN for Nausea & Vomiting, (Reported) Ondansetron* (Zofran*), 4 MG IV Q6H PRN for Nausea & Vomiting, (Reported) Polyethylene Glycol 3350* (Miralax*), 17 GM ORAL DAILY PRN for Constipation, ( Reported) Temazepam (Restoril), 15 MG GT QHS PRN for Insomnia, (Reported) Miscellaneous Medications Insulin Aspart* (Novolog*), 0 SUBQ, (Reported) Discontinued Medications Azithromycin* (Zithromax*), 500 MG ORAL DAILY, (Reported) Discontinued Reason: Medication dose changed Calcium Carbonate/Vitamin D3 (Calcium 500 + Vit D 200 Caplet), 1 EACH GT DAILY, (Reported) Discontinued Reason: MD discontinued med Cholecalciferol (Vitamin D3)* (Vitamin D*), 1,000 UNIT GT DAILY, (Reported) Discontinued Reason: MD discontinued med Folic Acid* (Folic Acid*), 1 MG ESINUS DAILY, (Reported) Discontinued Reason: MD discontinued med Lorazepam* (Lorazepam*), 1 MG GT EVERY 6 HOURS, (Reported) Discontinued Reason: MD discontinued med Metoclopramide Hcl* (Metoclopramide Hcl*), 5 MG GT EVERY 6 HOURS, (Reported) Discontinued Reason: MD discontinued med Pantoprazole Sodium (Protonix), 40 MG GT DAILY, (Reported) Discontinued Reason: MD discontinued med Topiramate (Topamax), 200 MG GT EVERY 12 HOURS, (Reported) Discontinued Reason: MD discontinued med Tramadol Hcl* (Ultram*), 50 MG GT Q6H PRN for For Pain, (Reported) Discontinued Reason: MD discontinued med Zinc Sulfate (Zinc Sulfate*), 220 MG GT DAILY, (Reported) Discontinued Reason: MD discontinued med [Hydromorphone Liq], 1 MG GT EVERY 2 HOURS, (Reported) Discontinued Reason: MD discontinued med Patient History History Provided By: Patient, Medical Record, PMD Healthcare decision maker Resuscitation status Full Code Advanced Directive on File Past Medical/Surgical History Past Medical/Surgical History: (1) Chronic pain (2) Chronic pain (3) Respiratory distress (4) Acute and chronic respiratory failure ([id number]) (5) Chest pain (6) Tracheostomy malfunction (7) COPD with exacerbation (8) COPD (chronic obstructive pulmonary disease) (9) CHF (congestive heart failure) (10) Hypothyroidism (11) Diabetes mellitus (12) Purulent bronchitis (13) Interstitial lung disease Review of Systems Psychiatric: Reports: see HPI, prior hx, anxiety, depressed feelings, emotional problems Physical Exam General Appearance: no apparent distress, alert Neurologic: alert, oriented x 3, responsive, depressed affect Last 24 Hour Vital Signs Date Time Temp Pulse Resp B/P (MAP) Pulse Ox O2 Delivery O2 Flow Rate FiO2 12/25/16 21:09 97.7 12/25/16 19:00 99 Nasal Cannula 3.0 32 12/25/16 19:00 72 20 Nasal Cannula 3.0 32 12/25/16 19:00 Nasal Cannula 3.0 32 12/25/16 16:00 97.7 61 17 100/49 98 Nasal Cannula 12/25/16 11:59 97.7 64 20 102/61 97 Nasal Cannula 2.0 12/25/16 10:09 71 12/25/16 08:30 98.2 71 20 93/54 98 Nasal Cannula 2.0 12/25/16 07:51 Nasal Cannula 3.0 32 12/25/16 07:50 97 Nasal Cannula 3.0 32 12/25/16 07:49 76 20 Nasal Cannula 3.0 32 12/25/16 04:00 97.3 76 18 100/59 96 Nasal Cannula 3.0 12/25/16 00:00 97.5 65 20 115/68 98 Nasal Cannula 2.0 Intake and Output 12/25/16 12/26/16 19:00 07:00 Intake Total 865 ml Output Total 200 ml Balance 665 ml Free Water 150 ml Tube Feeding 715 ml Output Urine Total 200 ml # Bowel Movements 3 Height (Feet): 5 Height (Inches): 7.00 Weight (Pounds): 126 Medications Current Medications Medications (Trade) Dose Ordered Sig/Sandra Route PRN Reason Start Time Stop Time Status Last Admin Dose Admin Al Hydroxide/Mg Hydroxide (Mylanta II) 30 ml Q6H PRN GT dyspepsia 12/22/16 12:00 01/16/17 11:59 Chlorhexidine Gluconate (Chioma-Hex 2%) 1 applic DAILY@2000 TOPIC 12/23/16 20:00 01/22/17 19:59 12/25/16 20:39 Dextrose (Dextrose 50%) STAT PRN IV Hypoglycemia 12/22/16 12:00 01/19/17 11:59 Digoxin (Lanoxin) 0.25 mg DAILY GT 12/23/16 09:00 01/17/17 09:29 12/25/16 10:09 Gabapentin (Neurontin) 300 mg TID GT 12/22/16 13:00 01/18/17 13:59 12/25/16 14:20 Heparin Sodium (Porcine) (Heparin 5000 units/ml) 5,000 units EVERY 12 HOURS SUBQ 12/22/16 21:00 01/17/17 08:59 12/25/16 20:44 Hydroxyzine HCl (Atarax) 25 mg BID GT 12/22/16 18:00 01/17/17 08:59 12/25/16 10:08 Insulin Aspart (NovoLOG) Q6HR SUBQ 12/22/16 18:00 01/17/17 17:59 12/23/16 18:10 Ketorolac Tromethamine (Toradol 30mg) 15 mg Q6H PRN IV Severe Breakthru Pain (>7) 12/22/16 23:15 12/27/16 23:14 12/25/16 20:39 Levothyroxine Sodium (Synthroid) 75 mcg ACBREAKFAST GT 12/23/16 06:30 01/19/17 06:29 12/25/16 05:39 Mirtazapine (Remeron) 7.5 mg BEDTIME GT 12/22/16 21:00 01/17/17 20:59 12/25/16 20:39 Nitroglycerin (Ntg) 0.4 mg Q5MIN X 3 DOSES PRN SL Prn Chest Pain 12/22/16 12:00 01/18/17 17:19 Ondansetron HCl (Zofran) 4 mg Q6H PRN IVP Nausea & Vomiting 12/22/16 12:00 01/16/17 11:59 Pioglitazone HCl (Actos) 15 mg DAILY GT 12/23/16 09:00 01/17/17 09:29 10/10/17 10:09 Polyethylene Glycol (Miralax) 17 gm DAILYPRN PRN ORAL Constipation 12/22/16 12:00 01/19/17 11:59 Temazepam (Restoril) 15 mg HSPRN PRN GT Insomnia 12/22/16 12:00 12/27/16 11:59 Assessment/Plan Status: stable, progressing Assessment/Plan mdd increase remeron no sitter no psych hospt Kallie Fernandez M.D. Dec 25, 2016 23:02
[2016-12-26] VITALS (7 sets, daily range): BP systolic 92–125; BP diastolic 47–58
[2016-12-26] MEDS: Ketorolac 30mg Inj IV PRN ×2 (05:49→16:11)
[2016-12-26] MEDS: NovoLOG Insulin Flexpen SUBQ SCH ×4 (06:00→18:00)
[2016-12-26] MEDS: Gabapentin 300 MG/6 ML Soln GT SCH ×3 (08:34→18:00)
[2016-12-26] MEDS: HydrOXYzine 25mg tab GT SCH ×2 (08:34→17:59)
[2016-12-26] MEDS: Heparin 5000 units/ml inj SUBQ SCH ×2 (08:36→20:31)
--- NOTE | 2016-12-26 10:57 | General Progress Note ---
Progress Note Progress Note Surgery: resting comfortable. no respiratory issues. comfortable. bandaid over prior trach site. site c/d/i. no further from surgical standpoint. Francisco Noble Dec 26, 2016 10:57
--- NOTE | 2016-12-26 18:02 | Progress Note ---
DATE: 12/26/2016 SUBJECTIVE: The patient was found in bed and calm. No behavior issues. Continues to be having hopelessness and helplessness due to her current medical condition and pain. Appetite is adequate. Sleep is well. She stated that she slept better. Still has anhedonia. MENTAL STATUS EXAMINATION: The patient is alert and oriented times self, place, and situation she is in. Mood is depressed. Affect is constricted. Congruent with mood. Thought process is concrete. Thought content, no suicidal or homicidal ideations. ASSESSMENT: Depression and pain. PLAN: The patient will be continued on current medication. We will provide the patient with supportive therapy. Kallie Fernandez M.D. DR: NAEEM JOB#: [id number] CC:
--- NOTE | 2016-12-26 18:52 | Pulmonology Progress Note ---
Assessment/Plan Problems: (1) Purulent bronchitis (2) Acute and chronic respiratory failure ([id number]) (3) Tracheostomy malfunction (4) COPD (chronic obstructive pulmonary disease) (5) Interstitial lung disease (6) Diabetes mellitus (7) Hypothyroidism Assessment/Plan symptomatic treatment tolerating off trach, respiratory treatment check sputum psych evaluation all notes reviewed awaiting discharge Subjective Allergies: Coded Allergies: ACETAMINOPHEN (Unverified Allergy, Unknown, 12/17/16) CODEINE (Unverified Allergy, Unknown, 03/04/14) IODINE (Unverified Allergy, Unknown, 12/17/16) Objective Last 24 Hour Vital Signs Date Time Temp Pulse Resp B/P (MAP) Pulse Ox O2 Delivery O2 Flow Rate FiO2 12/26/16 16:00 97.0 62 18 125/50 96 Nasal Cannula 4.0 12/26/16 12:37 96.3 90 22 102/47 93 Room Air 12/26/16 11:47 96.3 67 22 102/47 95 Nasal Cannula 2.0 12/26/16 08:34 75 12/26/16 08:29 97.0 71 20 110/58 99 Nasal Cannula 2.0 12/26/16 08:17 Nasal Cannula 3.0 32 12/26/16 08:17 98 Nasal Cannula 3.0 32 12/26/16 06:19 97.1 12/26/16 04:00 97.1 72 20 115/54 95 Nasal Cannula 2.0 12/26/16 00:00 97.0 60 20 113/47 95 Nasal Cannula 2.0 12/25/16 20:00 97.5 75 20 107/60 94 Nasal Cannula 2.0 12/25/16 19:00 99 Nasal Cannula 3.0 32 12/25/16 19:00 72 20 Nasal Cannula 3.0 32 12/25/16 19:00 Nasal Cannula 3.0 32 Intake and Output 12/26/16 12/27/16 19:00 07:00 Intake Total 570 ml Balance 570 ml Free Water 50 ml Tube Feeding 520 ml Objective General Appearance: no acute distress, cachetic HEENT: normocephalic, atraumatic Respiratory/Chest: chest wall non-tender, lungs clear, normal breath sounds Cardiovascular: normal peripheral pulses, normal rate Abdomen: normal bowel sounds, soft, non tender Genitourinary: normal external genitalia Extremities: no cyanosis Skin: no rash Laboratory Tests 12/26/16 05:25: Hepatitis C Antibody [Pending] Current Medications Medications (Trade) Dose Ordered Sig/Sandra Route PRN Reason Start Time Stop Time Status Last Admin Dose Admin Al Hydroxide/Mg Hydroxide (Mylanta II) 30 ml Q6H PRN GT dyspepsia 12/22/16 12:00 01/16/17 11:59 Chlorhexidine Gluconate (Chioma-Hex 2%) 1 applic DAILY@2000 TOPIC 12/23/16 20:00 01/22/17 19:59 12/25/16 20:39 Dextrose (Dextrose 50%) STAT PRN IV Hypoglycemia 12/22/16 12:00 01/19/17 11:59 Digoxin (Lanoxin) 0.25 mg DAILY GT 12/23/16 09:00 01/17/17 09:29 12/26/16 08:34 Gabapentin (Neurontin) 300 mg TID GT 12/22/16 13:00 01/18/17 13:59 12/26/16 18:00 Heparin Sodium (Porcine) (Heparin 5000 units/ml) 5,000 units EVERY 12 HOURS SUBQ 12/22/16 21:00 01/17/17 08:59 12/26/16 08:36 Hydroxyzine HCl (Atarax) 25 mg BID GT 12/22/16 18:00 01/17/17 08:59 12/26/16 17:59 Insulin Aspart (NovoLOG) Q6HR SUBQ 12/22/16 18:00 01/17/17 17:59 12/23/16 18:10 Ketorolac Tromethamine (Toradol 30mg) 15 mg Q6H PRN IV Severe Breakthru Pain (>7) 12/22/16 23:15 12/27/16 23:14 12/26/16 16:11 Levothyroxine Sodium (Synthroid) 75 mcg ACBREAKFAST GT 12/23/16 06:30 01/19/17 06:29 12/26/16 05:49 Mirtazapine (Remeron) 15 mg BEDTIME GT 12/26/16 21:00 01/25/17 20:59 Nitroglycerin (Ntg) 0.4 mg Q5MIN X 3 DOSES PRN SL Prn Chest Pain 12/22/16 12:00 01/18/17 17:19 Ondansetron HCl (Zofran) 4 mg Q6H PRN IVP Nausea & Vomiting 12/22/16 12:00 01/16/17 11:59 Pioglitazone HCl (Actos) 15 mg DAILY GT 12/23/16 09:00 01/17/17 09:29 12/26/16 08:33 Polyethylene Glycol (Miralax) 17 gm DAILYPRN PRN ORAL Constipation 12/22/16 12:00 01/19/17 11:59 Temazepam (Restoril) 15 mg HSPRN PRN GT Insomnia 12/22/16 12:00 12/27/16 11:59 12/26/16 00:48 DEDRICK SOLANO Dec 26, 2016 18:52
[2016-12-26] MEDS: Dyna-Hex 2% Top Sol 2oz TOPIC SCH (20:32)
[2016-12-27] VITALS: BP_SYST 110; BP_SYST 87; BP_DIAS 49; BP_DIAS 55
[2016-12-27] MEDS: Ketorolac 30mg Inj IV PRN ×3 (03:53→17:30)
[2016-12-27 04:00] VITALS: BP 102/54
[2016-12-27] MEDS: NovoLOG Insulin Flexpen SUBQ SCH ×4 (06:00→18:00)
[2016-12-27 08:47] VITALS: BP 112/60
[2016-12-27] MEDS: Gabapentin 300 MG/6 ML Soln GT SCH ×3 (09:46→18:03)
[2016-12-27] MEDS: HydrOXYzine 25mg tab GT SCH ×2 (09:46→18:03)
[2016-12-27] MEDS: Heparin 5000 units/ml inj SUBQ SCH ×2 (09:50→21:53)
[2016-12-27 12:01] VITALS: BP 99/55
[2016-12-27 16:00] VITALS: BP 95/53
[2016-12-27] MEDS ORDERED: Sodium Chloride 500ML 500 ML IV ONE (16:15)
--- NOTE | 2016-12-27 17:47 | Pulmonology Progress Note ---
Assessment/Plan Assessment/Plan ASSESSMENT acute on chronic respiratory failure acute purulent bronchitis possible PNA, s/p Rx tracheostomy malfunctioning, s/p replacement of trach tube in ED COPD interstitial lung disease s/p decannulation hypothyroidism dysphagia , G tube high aspiration risk depression sacrococcyx decub st 2 POA likely protein calorie malnutrition PLAN OF CARE MS floor O2 HHN prn respiratory status stable after decannulation pulse ox stable on O2 via NC, no signs of respiratory distress sputum cx not collected, blood cx negative, stool C dif negative initially empiric abx for possible PNA, s/p rx a/tussive prn CXR with interstitial congestion leukocytosis resolved ID follows currently off abx, monitor clinically, no evidence of infection aspiration precautions GT feeding, monitor tolerance BSSE and VSE done, not passed continue non oral feeding but for quality of life initiate diet as per ST recommendations with strict aspiration/reflux precautions and 1 to 1 supervision surgery follows, no need for surgical interventions DVT prophylaxis PT Rx continue continue levothyroxine, check TSH Digoxin level stable BS management with SS of insulin and Actos, optimize as needed wound care as per wound nurse recommendations dietary eval noted, on dietary supplements as suggested awaiting for decision from appeal challenging placement case discussed and evaluated by supervising physician Subjective Allergies: Coded Allergies: ACETAMINOPHEN (Unverified Allergy, Unknown, 12/17/16) CODEINE (Unverified Allergy, Unknown, 03/04/14) IODINE (Unverified Allergy, Unknown, 12/17/16) Subjective no signs of respiratory distress on O2 via NC pulse ox stable Objective Last 24 Hour Vital Signs Date Time Temp Pulse Resp B/P (MAP) Pulse Ox O2 Delivery O2 Flow Rate FiO2 12/27/16 16:00 97.7 63 17 95/53 97 Nasal Cannula 3.0 12/27/16 12:01 97.7 54 20 99/55 98 Nasal Cannula 2.0 12/27/16 09:48 64 12/27/16 08:49 Nasal Cannula 2.0 28 12/27/16 08:49 99 Nasal Cannula 2.0 28 12/27/16 08:47 98.4 76 20 112/60 97 Nasal Cannula 2.0 12/27/16 04:23 98.0 12/27/16 04:00 97.7 64 20 102/54 96 Nasal Cannula 12/27/16 00:00 98.0 67 20 110/55 97 Nasal Cannula 2.0 12/26/16 22:33 Nasal Cannula 3.0 32 12/26/16 22:32 98 Nasal Cannula 3.0 32 12/26/16 22:32 98 Nasal Cannula 3.0 32 12/26/16 20:00 97.9 85 20 92/57 100 Nasal Cannula 2.0 Intake and Output 12/27/16 12/28/16 19:00 07:00 Intake Total 700 ml Output Total 1100 ml Balance -400 ml Free Water 50 ml Tube Feeding 650 ml Output Urine Total 1100 ml # Bowel Movements 3 General Appearance: no acute distress, cachetic HEENT: normocephalic, atraumatic, anicteric Respiratory/Chest: lungs clear - with moderate air exchange, no respiratory distress, no accessory muscle use, other - old trach site with Bandaid C/D/I Cardiovascular: normal rate, regular rhythm, no JVD Abdomen: normal bowel sounds, soft, non tender Neurologic/Psychiatric: abnormal gait, alert, normal mood/affect Microbiology Date/Time Source Procedure Growth Status 12/26/16 14:00 Stool Clostridium difficile Toxin Assay - Final Complete Current Medications Medications (Trade) Dose Ordered Sig/Sandra Route PRN Reason Start Time Stop Time Status Last Admin Dose Admin Al Hydroxide/Mg Hydroxide (Mylanta II) 30 ml Q6H PRN GT dyspepsia 12/22/16 12:00 01/16/17 11:59 Chlorhexidine Gluconate (Chioma-Hex 2%) 1 applic DAILY@2000 TOPIC 12/23/16 20:00 01/22/17 19:59 12/26/16 20:32 Dextrose (Dextrose 50%) STAT PRN IV Hypoglycemia 12/22/16 12:00 01/19/17 11:59 Digoxin (Lanoxin) 0.25 mg DAILY GT 12/23/16 09:00 01/17/17 09:29 12/27/16 09:48 Gabapentin (Neurontin) 300 mg TID GT 12/22/16 13:00 01/18/17 13:59 12/27/16 13:45 Heparin Sodium (Porcine) (Heparin 5000 units/ml) 5,000 units EVERY 12 HOURS SUBQ 12/22/16 21:00 01/17/17 08:59 12/27/16 09:50 Hydroxyzine HCl (Atarax) 25 mg BID GT 12/22/16 18:00 01/17/17 08:59 12/27/16 09:46 Insulin Aspart (NovoLOG) Q6HR SUBQ 12/22/16 18:00 01/17/17 17:59 12/23/16 18:10 Ketorolac Tromethamine (Toradol 30mg) 15 mg Q6H PRN IV Severe Breakthru Pain (>7) 12/22/16 23:15 12/27/16 23:14 12/27/16 17:30 Levothyroxine Sodium (Synthroid) 75 mcg ACBREAKFAST GT 12/23/16 06:30 01/19/17 06:29 12/27/16 06:12 Mirtazapine (Remeron) 15 mg BEDTIME GT 12/26/16 21:00 01/25/17 20:59 12/26/16 20:29 Nitroglycerin (Ntg) 0.4 mg Q5MIN X 3 DOSES PRN SL Prn Chest Pain 12/22/16 12:00 01/18/17 17:19 Ondansetron HCl (Zofran) 4 mg Q6H PRN IVP Nausea & Vomiting 12/22/16 12:00 01/16/17 11:59 Pioglitazone HCl (Actos) 15 mg DAILY GT 12/23/16 09:00 01/17/17 09:29 12/27/16 09:46 Polyethylene Glycol (Miralax) 17 gm DAILYPRN PRN ORAL Constipation 12/22/16 12:00 01/19/17 11:59 Julianne Merrill NP (Vanchtein) Dec 27, 2016 17:47
[2016-12-27 19:47] VITALS: BP 95/52
[2016-12-27] MEDS: Dyna-Hex 2% Top Sol 2oz TOPIC SCH (21:49)
[2016-12-28] VITALS: BP 104/57
--- NOTE | 2016-12-28 | General Progress Note ---
Assessment/Plan Status: stable, progressing Subjective Constitutional: Reports: malaise, weakness Neurologic/Psychiatric: Reports: anxiety, depressed, emotional problems Allergies: Coded Allergies: ACETAMINOPHEN (Unverified Allergy, Unknown, 12/17/16) CODEINE (Unverified Allergy, Unknown, 03/04/14) IODINE (Unverified Allergy, Unknown, 12/17/16) Objective Last 24 Hour Vital Signs Date Time Temp Pulse Resp B/P (MAP) Pulse Ox O2 Delivery O2 Flow Rate FiO2 12/27/16 21:19 99 Nasal Cannula 2.0 28 12/27/16 21:19 Nasal Cannula 2.0 28 12/27/16 19:47 97.0 64 18 95/52 99 Nasal Cannula 2.0 12/27/16 16:00 97.7 63 17 95/53 97 Nasal Cannula 3.0 12/27/16 12:01 97.7 54 20 99/55 98 Nasal Cannula 2.0 12/27/16 09:48 64 12/27/16 08:49 Nasal Cannula 2.0 28 12/27/16 08:49 99 Nasal Cannula 2.0 28 12/27/16 08:47 98.4 76 20 112/60 97 Nasal Cannula 2.0 12/27/16 04:23 98.0 12/27/16 04:00 97.7 64 20 102/54 96 Nasal Cannula Height (Feet): 5 Height (Inches): 7.00 Weight (Pounds): 126 General Appearance: no apparent distress, alert, thin Neurologic: alert, oriented x 3, responsive, depressed affect Kallie Fernandez M.D. Dec 28, 2016 00:00
[2016-12-28] MEDS: NovoLOG Insulin Flexpen SUBQ SCH ×5 (05:26→23:53)
[2016-12-28 08:00] VITALS: BP 104/59
--- NOTE | 2016-12-28 09:18 | Pulmonology Progress Note ---
Assessment/Plan Assessment/Plan ASSESSMENT acute on chronic respiratory failure acute purulent bronchitis possible PNA, s/p Rx tracheostomy malfunctioning, s/p replacement of trach tube in ED COPD interstitial lung disease s/p decannulation hypothyroidism with elevated TSH dysphagia , G tube high aspiration risk depression sacrococcyx decub st 2 POA likely protein calorie malnutrition major depressive disorder PLAN OF CARE [facility] floor O2 HHN prn respiratory status stable after decannulation pulse ox stable on O2 via NC, no signs of respiratory distress sputum cx not collected, blood cx negative, stool C dif negative initially empiric abx for possible PNA, s/p rx a/tussive prn CXR with interstitial congestion leukocytosis resolved ID follows currently off abx, monitor clinically, no evidence of infection aspiration precautions GT feeding, monitor tolerance BSSE and VSE done, not passed continue non oral feeding but for quality of life initiate diet as per ST recommendations with strict aspiration/reflux precautions and 1 to 1 supervision surgery follows, no need for surgical interventions DVT prophylaxis PT Rx continue TSH elevated, increase dose of levothyroxine Digoxin level stable BS management with SS of insulin and Actos, optimize as needed wound care as per wound nurse recommendations dietary eval noted, on dietary supplements as suggested psych follows per psych -no need for sitter , no need for psych hospital medical management with antidepressant awaiting for decision from appeal challenging placement case discussed and evaluated by supervising physician Subjective Allergies: Coded Allergies: ACETAMINOPHEN (Unverified Allergy, Unknown, 12/17/16) CODEINE (Unverified Allergy, Unknown, 03/04/14) IODINE (Unverified Allergy, Unknown, 12/17/16) Subjective no signs of respiratory distress on O2 via NC pulse ox stable Objective Last 24 Hour Vital Signs Date Time Temp Pulse Resp B/P (MAP) Pulse Ox O2 Delivery O2 Flow Rate FiO2 12/28/16 00:00 98.6 79 21 104/57 96 Nasal Cannula 2.0 12/27/16 21:19 99 Nasal Cannula 2.0 28 12/27/16 21:19 Nasal Cannula 2.0 28 12/27/16 19:47 97.0 64 18 95/52 99 Nasal Cannula 2.0 12/27/16 16:00 97.7 63 17 95/53 97 Nasal Cannula 3.0 12/27/16 12:01 97.7 54 20 99/55 98 Nasal Cannula 2.0 12/27/16 09:48 64 Objective General Appearance: no acute distress, cachetic HEENT: normocephalic, atraumatic, anicteric Respiratory/Chest: lungs clear - with moderate air exchange, no respiratory distress, no accessory muscle use, other - old trach site with Bandaid C/D/I Cardiovascular: normal rate, regular rhythm, no JVD Abdomen: normal bowel sounds, soft, non tender Neurologic/Psychiatric: abnormal gait, alert, normal mood/affect Microbiology Date/Time Source Procedure Growth Status 12/26/16 14:00 Stool Clostridium difficile Toxin Assay - Final Complete Current Medications Medications (Trade) Dose Ordered Sig/Sandra Route PRN Reason Start Time Stop Time Status Last Admin Dose Admin Al Hydroxide/Mg Hydroxide (Mylanta II) 30 ml Q6H PRN GT dyspepsia 12/22/16 12:00 01/16/17 11:59 12/27/16 21:50 Chlorhexidine Gluconate (Chioma-Hex 2%) 1 applic DAILY@2000 TOPIC 12/23/16 20:00 01/22/17 19:59 12/27/16 21:49 Dextrose (Dextrose 50%) STAT PRN IV Hypoglycemia 12/22/16 12:00 01/19/17 11:59 Digoxin (Lanoxin) 0.25 mg DAILY GT 12/23/16 09:00 01/17/17 09:29 12/27/16 09:48 Gabapentin (Neurontin) 300 mg TID GT 12/22/16 13:00 01/18/17 13:59 12/27/16 18:03 Heparin Sodium (Porcine) (Heparin 5000 units/ml) 5,000 units EVERY 12 HOURS SUBQ 12/22/16 21:00 01/17/17 08:59 12/27/16 21:53 Hydroxyzine HCl (Atarax) 25 mg BID GT 12/22/16 18:00 01/17/17 08:59 12/27/16 18:03 Insulin Aspart (NovoLOG) Q6HR SUBQ 12/22/16 18:00 01/17/17 17:59 12/23/16 18:10 Levothyroxine Sodium (Synthroid) 75 mcg ACBREAKFAST GT 12/23/16 06:30 01/19/17 06:29 12/28/16 05:26 Mirtazapine (Remeron) 15 mg BEDTIME GT 12/26/16 21:00 01/25/17 20:59 12/27/16 21:50 Nitroglycerin (Ntg) 0.4 mg Q5MIN X 3 DOSES PRN SL Prn Chest Pain 12/22/16 12:00 01/18/17 17:19 Ondansetron HCl (Zofran) 4 mg Q6H PRN IVP Nausea & Vomiting 12/22/16 12:00 01/16/17 11:59 Pioglitazone HCl (Actos) 15 mg DAILY GT 12/23/16 09:00 01/17/17 09:29 12/27/16 09:46 Polyethylene Glycol (Miralax) 17 gm DAILYPRN PRN ORAL Constipation 12/22/16 12:00 01/19/17 11:59 [facility] ([facility])Julianne NP Dec 28, 2016 09:18
[2016-12-28] MEDS: Gabapentin 300 MG/6 ML Soln GT SCH ×3 (09:31→17:18)
[2016-12-28] MEDS: HydrOXYzine 25mg tab GT SCH ×2 (09:32→17:18)
[2016-12-28] MEDS: Heparin 5000 units/ml inj SUBQ SCH ×2 (09:34→21:51)
[2016-12-28 12:00] VITALS: BP 110/59
[2016-12-28 13:03] LABS: BASOPHILS % (AUTO) 1.9 % (0.0-2.0); EOSINOPHILS % (AUTO) 8.4 % (0.0-3.0); HEMATOCRIT 39.5 % (37.0-47.0); HEMOGLOBIN 11.9 G/DL (12.0-16.0); MEAN CORPUSCULAR VOLUME 96 FL (80-99); MONOCYTES % (AUTO) 6.9 % (1.0-10.0); NEUTROPHILS % (AUTO) 48.8 % (45.0-75.0); PLATELET COUNT 343 K/UL (150-450); RED BLOOD COUNT 4.13 M/UL (4.20-5.40); RED CELL DISTRIBUTION WIDTH 15.3 % (11.6-14.8); WHITE BLOOD COUNT 7.7 K/UL (4.8-10.8)
--- NOTE | 2016-12-28 14:06 | General Progress Note ---
Assessment/Plan Status: stable, progressing Subjective Neurologic/Psychiatric: Reports: depressed, emotional problems Allergies: Coded Allergies: ACETAMINOPHEN (Unverified Allergy, Unknown, 12/17/16) CODEINE (Unverified Allergy, Unknown, 03/04/14) IODINE (Unverified Allergy, Unknown, 12/17/16) Objective Last 24 Hour Vital Signs Date Time Temp Pulse Resp B/P (MAP) Pulse Ox O2 Delivery O2 Flow Rate FiO2 12/28/16 12:00 97.3 75 20 110/59 97 Nasal Cannula 2.0 12/28/16 09:31 80 12/28/16 08:00 97.7 80 20 104/59 98 Nasal Cannula 2.0 12/28/16 00:00 98.6 79 21 104/57 96 Nasal Cannula 2.0 12/27/16 21:19 99 Nasal Cannula 2.0 28 12/27/16 21:19 Nasal Cannula 2.0 28 12/27/16 19:47 97.0 64 18 95/52 99 Nasal Cannula 2.0 12/27/16 16:00 97.7 63 17 95/53 97 Nasal Cannula 3.0 Laboratory Tests 12/28/16 12:35: White Blood Count 7.7, Red Blood Count 4.13L, Hemoglobin 11.9L, Hematocrit 39.5 , Mean Corpuscular Volume 96, Mean Corpuscular Hemoglobin 28.9, Mean Corpuscular Hemoglobin Concent 30.2L, Red Cell Distribution Width 15.3H, Platelet Count 343, Mean Platelet Volume 7.8, Neutrophils (%) (Auto) 48.8, Lymphocytes (%) (Auto) 34.0, Monocytes (%) (Auto) 6.9, Eosinophils (%) (Auto) 8.4H, Basophils (%) (Auto) 1.9, Thyroid Stimulating Hormone (TSH) 26.329H Height (Feet): 5 Height (Inches): 7.00 Weight (Pounds): 126 General Appearance: no apparent distress, alert, overweight Neurologic: alert, oriented x 3, responsive, depressed affect Kallie Fernandez M.D. Dec 28, 2016 14:06
[2016-12-28] MEDS: Ketorolac 30mg Inj IV PRN (14:13)
[2016-12-28 16:00] VITALS: BP 81/40
[2016-12-28] MEDS ORDERED: Sterile Water Irrig 1000ml IRRIG ONE (16:14)
[2016-12-28] MEDS ORDERED: NS 500ML IV ONE (16:14)
--- NOTE | 2016-12-28 18:20 | Infectious Diseases Prog Note ---
Assessment/Plan Assessment/Plan Assesment: SOB- likely related to malpositioned trach +/- ?PNA- resolved Possible PNA, s/p Rx -CXR: Interstitial disease nonspecific. CHF, pneumonitis not excluded -spu cx ordered, not collected Leukocytosis- ?reactive vs 2ry to PNA vs combination- resolved -Bcx Neg -u/a WBC 2-4 Diarrhea- neg cdiff COPD and chronic tracheostomy- s/p trach decanulized 12/21 , CHF, spinal fusion, DVT, s/p hip surgery, chronic pain, correction resident Plan: -Continue to monitor off abx -s/p 5d IV Ceftriaxone/azithromycin 12/21 -s/p 1 d IV Vanco/Cefpime 12/18 -s/p 1d Levaquin 12/17 -f/u Hep C ab (per patient request) -Monitor CBC/BMP, temperatures -Aspiration precautions. Thank you for this consultation. WIll continue to follow along with you. Discussed with RN. Subjective Allergies: Coded Allergies: ACETAMINOPHEN (Unverified Allergy, Unknown, 12/17/16) CODEINE (Unverified Allergy, Unknown, 03/04/14) IODINE (Unverified Allergy, Unknown, 12/17/16) Subjective afebrile no labs since 12/22 bcx neg cdiff neg awaiting Hep C (per patient request) Objective Vital Signs Last 24 Hour Vital Signs Date Time Temp Pulse Resp B/P (MAP) Pulse Ox O2 Delivery O2 Flow Rate FiO2 12/28/16 16:00 97.5 90 20 81/40 95 Nasal Cannula 2.0 12/28/16 12:00 97.3 75 20 110/59 97 Nasal Cannula 2.0 12/28/16 09:31 80 12/28/16 08:00 97.7 80 20 104/59 98 Nasal Cannula 2.0 12/28/16 07:55 98 Nasal Cannula 2.0 28 12/28/16 07:55 Nasal Cannula 2.0 28 12/28/16 00:00 98.6 79 21 104/57 96 Nasal Cannula 2.0 12/27/16 21:19 99 Nasal Cannula 2.0 28 12/27/16 21:19 Nasal Cannula 2.0 28 12/27/16 19:47 97.0 64 18 95/52 99 Nasal Cannula 2.0 Height (Feet): 5 Height (Inches): 7.00 Weight (Pounds): 126 Objective General Appearance: WD/WN, frail Lines, tubes and drains: peripheral, gtube HEENT: normocephalic, atraumatic; trach decanulized Neck: non-tender, normal alignment Respiratory/Chest: chest wall non-tender, lungs clear Cardiovascular/Chest: normal peripheral pulses, normal rate Abdomen: normal bowel sounds, non tender Genitourinary/Rectal: normal genital exam, normal rectal exam Extremities: normal range of motion, non-tender Microbiology Date/Time Source Procedure Growth Status 12/26/16 14:00 Stool Clostridium difficile Toxin Assay - Final Complete Laboratory Tests Test 12/28/16 12:35 White Blood Count 7.7 K/UL (4.8-10.8) Red Blood Count 4.13 M/UL (4.20-5.40) L Hemoglobin 11.9 G/DL (12.0-16.0) L Hematocrit 39.5 % (37.0-47.0) Mean Corpuscular Volume 96 FL (80-99) Mean Corpuscular Hemoglobin 28.9 PG (27.0-31.0) Mean Corpuscular Hemoglobin Concent 30.2 G/DL (32.0-36.0) L Red Cell Distribution Width 15.3 % (11.6-14.8) H Platelet Count 343 K/UL (150-450) Mean Platelet Volume 7.8 FL (6.5-10.1) Neutrophils (%) (Auto) 48.8 % (45.0-75.0) Lymphocytes (%) (Auto) 34.0 % (20.0-45.0) Monocytes (%) (Auto) 6.9 % (1.0-10.0) Eosinophils (%) (Auto) 8.4 % (0.0-3.0) H Basophils (%) (Auto) 1.9 % (0.0-2.0) Thyroid Stimulating Hormone (TSH) 26.329 uiU/mL (0.360-3.740) Current Medications Medications (Trade) Dose Ordered Sig/Sandra Route PRN Reason Start Time Stop Time Status Last Admin Dose Admin Al Hydroxide/Mg Hydroxide (Mylanta II) 30 ml Q6H PRN GT dyspepsia 12/22/16 12:00 01/16/17 11:59 12/27/16 21:50 Chlorhexidine Gluconate (Chioma-Hex 2%) 1 applic DAILY@2000 TOPIC 12/23/16 20:00 01/22/17 19:59 12/27/16 21:49 Dextrose (Dextrose 50%) STAT PRN IV Hypoglycemia 12/22/16 12:00 01/19/17 11:59 Digoxin (Lanoxin) 0.25 mg DAILY GT 12/23/16 09:00 01/17/17 09:29 12/28/16 09:31 Gabapentin (Neurontin) 300 mg TID GT 12/22/16 13:00 01/18/17 13:59 12/28/16 17:18 Heparin Sodium (Porcine) (Heparin 5000 units/ml) 5,000 units EVERY 12 HOURS SUBQ 12/22/16 21:00 01/17/17 08:59 12/28/16 09:34 Hydroxyzine HCl (Atarax) 25 mg BID GT 12/22/16 18:00 01/17/17 08:59 12/28/16 17:18 Insulin Aspart (NovoLOG) Q6HR SUBQ 12/22/16 18:00 01/17/17 17:59 12/23/16 18:10 Ketorolac Tromethamine (Toradol 30mg) 15 mg Q6H PRN IV For Pain 12/28/16 14:00 01/02/17 13:59 12/28/16 14:13 Levothyroxine Sodium (Synthroid) 88 mcg ACBREAKFAST GT 12/29/16 06:30 01/28/17 06:29 Mirtazapine (Remeron) 15 mg BEDTIME GT 12/26/16 21:00 01/25/17 20:59 12/27/16 21:50 Nitroglycerin (Ntg) 0.4 mg Q5MIN X 3 DOSES PRN SL Prn Chest Pain 12/22/16 12:00 01/18/17 17:19 Ondansetron HCl (Zofran) 4 mg Q6H PRN IVP Nausea & Vomiting 12/22/16 12:00 01/16/17 11:59 Pioglitazone HCl (Actos) 15 mg DAILY GT 12/23/16 09:00 01/17/17 09:29 12/28/16 09:31 Polyethylene Glycol (Miralax) 17 gm DAILYPRN PRN ORAL Constipation 12/22/16 12:00 01/19/17 11:59 Lisa Cartagena M.D. Dec 28, 2016 18:20
[2016-12-28 19:43] VITALS: BP 103/63
[2016-12-28] MEDS: Dyna-Hex 2% Top Sol 2oz TOPIC SCH (21:50)
[2016-12-28 23:59] VITALS: BP 105/66
[2016-12-29] MEDS: Ketorolac 30mg Inj IV PRN ×4 (00:16→20:47)
[2016-12-29 04:04] VITALS: BP 100/56
[2016-12-29] MEDS: NovoLOG Insulin Flexpen SUBQ SCH ×3 (06:00→18:00)
[2016-12-29] MEDS: HydrOXYzine 25mg tab GT SCH ×2 (07:54→18:40)
[2016-12-29 08:00] VITALS: BP 113/58
[2016-12-29] MEDS: Gabapentin 300 MG/6 ML Soln GT SCH ×3 (10:17→18:39)
[2016-12-29] MEDS: Heparin 5000 units/ml inj SUBQ SCH ×2 (10:26→20:49)
[2016-12-29 12:00] VITALS: BP 111/57
--- NOTE | 2016-12-29 12:51 | Pulmonology Progress Note ---
Assessment/Plan Assessment/Plan ASSESSMENT acute on chronic respiratory failure acute purulent bronchitis possible PNA, s/p Rx tracheostomy malfunctioning, s/p replacement of trach tube in ED COPD interstitial lung disease s/p decannulation hypothyroidism with elevated TSH dysphagia , G tube leaking G tube high aspiration risk depression sacrococcyx decub st 2 POA likely protein calorie malnutrition major depressive disorder PLAN OF CARE [facility] floor O2 HHN prn respiratory status stable after decannulation pulse ox stable on O2 via NC, no signs of respiratory distress sputum cx not collected, blood cx negative, stool C dif negative initially empiric abx for possible PNA, s/p rx a/tussive prn CXR with interstitial congestion leukocytosis resolved ID follows currently off abx, monitor clinically, no evidence of infection aspiration precautions GT feeding, monitor tolerance BSSE and VSE done, not passed continue non oral feeding but for quality of life initiate diet as per ST recommendations with strict aspiration/reflux precautions and 1 to 1 supervision surgery follows, no need for surgical interventions DVT prophylaxis PT Rx continue TSH elevated, increase dose of levothyroxine Digoxin level stable BS management with SS of insulin and Actos, optimize as needed wound care as per wound nurse recommendations dietary eval noted, on dietary supplements as suggested psych follows per psych -no need for sitter , no need for psych hospital medical management with antidepressant GI eval for leaking G tube awaiting for decision from appeal challenging placement case discussed and evaluated by supervising physician Subjective Allergies: Coded Allergies: ACETAMINOPHEN (Unverified Allergy, Unknown, 12/17/16) CODEINE (Unverified Allergy, Unknown, 03/04/14) IODINE (Unverified Allergy, Unknown, 12/17/16) Subjective no signs of respiratory distress on O2 via NC pulse ox stable leaking G tube noted by nursing Objective Last 24 Hour Vital Signs Date Time Temp Pulse Resp B/P (MAP) Pulse Ox O2 Delivery O2 Flow Rate FiO2 12/29/16 12:00 97.0 66 19 111/57 100 Nasal Cannula 2.0 12/29/16 08:00 97.0 68 20 113/58 100 Nasal Cannula 2.0 12/29/16 07:55 67 12/29/16 04:04 96.4 68 20 100/56 98 Nasal Cannula 12/28/16 23:59 96.5 73 20 105/66 99 Room Air 12/28/16 19:45 Nasal Cannula 2.0 28 10/13/17 19:45 98 Nasal Cannula 2.0 28 12/28/16 19:43 97.3 66 20 103/63 99 Nasal Cannula 5.0 12/28/16 16:00 97.5 90 20 81/40 95 Nasal Cannula 2.0 Objective General Appearance: no acute distress, cachetic HEENT: normocephalic, atraumatic, anicteric Respiratory/Chest: lungs clear - with moderate air exchange, no respiratory distress, no accessory muscle use, other - old trach site with Bandaid C/D/I Cardiovascular: normal rate, regular rhythm, no JVD Abdomen: normal bowel sounds, soft, non tender Neurologic/Psychiatric: abnormal gait, alert, normal mood/affect Microbiology Date/Time Source Procedure Growth Status 12/26/16 14:00 Stool Clostridium difficile Toxin Assay - Final Complete Current Medications Medications (Trade) Dose Ordered Sig/Sandra Route PRN Reason Start Time Stop Time Status Last Admin Dose Admin Al Hydroxide/Mg Hydroxide (Mylanta II) 30 ml Q6H PRN GT dyspepsia 12/22/16 12:00 01/16/17 11:59 12/27/16 21:50 Chlorhexidine Gluconate (Chioma-Hex 2%) 1 applic DAILY@2000 TOPIC 12/23/16 20:00 01/22/17 19:59 12/28/16 21:50 Dextrose (Dextrose 50%) STAT PRN IV Hypoglycemia 12/22/16 12:00 01/19/17 11:59 Digoxin (Lanoxin) 0.25 mg DAILY GT 12/23/16 09:00 01/17/17 09:29 12/29/16 07:55 Gabapentin (Neurontin) 300 mg TID GT 12/22/16 13:00 01/18/17 13:59 12/29/16 10:17 Heparin Sodium (Porcine) (Heparin 5000 units/ml) 5,000 units EVERY 12 HOURS SUBQ 12/22/16 21:00 01/17/17 08:59 12/29/16 10:26 Hydroxyzine HCl (Atarax) 25 mg BID GT 12/22/16 18:00 01/17/17 08:59 12/29/16 07:54 Insulin Aspart (NovoLOG) Q6HR SUBQ 12/22/16 18:00 01/17/17 17:59 12/23/16 18:10 Ketorolac Tromethamine (Toradol 30mg) 15 mg Q6H PRN IV For Pain 12/28/16 14:00 01/02/17 13:59 12/29/16 07:54 Levothyroxine Sodium (Synthroid) 88 mcg ACBREAKFAST GT 12/29/16 06:30 01/28/17 06:29 12/29/16 10:18 Mirtazapine (Remeron) 15 mg BEDTIME GT 12/26/16 21:00 01/25/17 20:59 12/28/16 21:50 Nitroglycerin (Ntg) 0.4 mg Q5MIN X 3 DOSES PRN SL Prn Chest Pain 12/22/16 12:00 01/18/17 17:19 Ondansetron HCl (Zofran) 4 mg Q6H PRN IVP Nausea & Vomiting 12/22/16 12:00 01/16/17 11:59 Pioglitazone HCl (Actos) 15 mg DAILY GT 12/23/16 09:00 01/17/17 09:29 12/29/16 07:55 Polyethylene Glycol (Miralax) 17 gm DAILYPRN PRN ORAL Constipation 12/22/16 12:00 01/19/17 11:59 [place] (Julianne Lombardo NP Dec 29, 2016 12:51
[2016-12-29 15:38] VITALS: BP 95/50
[2016-12-29 20:00] VITALS: BP 123/58
[2016-12-29] MEDS: Dyna-Hex 2% Top Sol 2oz TOPIC SCH (20:45)
[2016-12-30] VITALS: BP 125/60
[2016-12-30 04:31] VITALS: BP 88/44
[2016-12-30] MEDS: Ketorolac 30mg Inj IV PRN ×2 (05:24→17:40)
[2016-12-30] MEDS: NovoLOG Insulin Flexpen SUBQ SCH ×5 (05:25→20:27)
[2016-12-30 08:29] VITALS: BP 104/58
[2016-12-30] MEDS: Gabapentin 300 MG/6 ML Soln GT SCH ×3 (09:10→17:40)
[2016-12-30] MEDS: HydrOXYzine 25mg tab GT SCH ×2 (09:11→17:40)
[2016-12-30] MEDS: Heparin 5000 units/ml inj SUBQ SCH ×2 (09:12→21:12)
--- NOTE | 2016-12-30 11:56 | Infectious Diseases Prog Note ---
Assessment/Plan Assessment/Plan A; Pneumonia s/p RX COPD DM Hypothyroidism P; observe off antibiotic Subjective ROS Limited/Unobtainable: No Respiratory: Reports: dry cough Cardiovascular: Reports: no symptoms Gastrointestinal/Abdominal: Reports: other - feels hugry, GT is removed Allergies: Coded Allergies: ACETAMINOPHEN (Unverified Allergy, Unknown, 12/17/16) CODEINE (Unverified Allergy, Unknown, 03/04/14) IODINE (Unverified Allergy, Unknown, 12/17/16) Objective Vital Signs Last 24 Hour Vital Signs Date Time Temp Pulse Resp B/P (MAP) Pulse Ox O2 Delivery O2 Flow Rate FiO2 12/30/16 09:10 71 12/30/16 08:29 97.7 71 20 104/58 98 Room Air 12/30/16 04:31 97.6 57 18 88/44 96 Nasal Cannula 12/30/16 00:00 97.2 61 18 125/60 93 Nasal Cannula 2.0 12/29/16 20:16 Nasal Cannula 2.0 28 12/29/16 20:16 99 Nasal Cannula 2.0 28 12/29/16 20:00 97.0 60 18 123/58 92 Nasal Cannula 2.0 12/29/16 15:38 97.7 60 17 95/50 95 Nasal Cannula 2.0 12/29/16 12:00 97.0 66 19 111/57 100 Nasal Cannula 2.0 Height (Feet): 5 Height (Inches): 7.00 Weight (Pounds): 126 General Appearance: no acute distress HEENT: other - no teeth Respiratory/Chest: rhonchi - bilaterally Cardiovascular: normal rate Abdomen: soft, non tender Extremities: no edema Neurologic/Psychiatric: alert, oriented x 3 Current Medications Medications (Trade) Dose Ordered Sig/Sandra Route PRN Reason Start Time Stop Time Status Last Admin Dose Admin Al Hydroxide/Mg Hydroxide (Mylanta II) 30 ml Q6H PRN GT dyspepsia 12/22/16 12:00 01/16/17 11:59 12/27/16 21:50 Chlorhexidine Gluconate (Chioma-Hex 2%) 1 applic DAILY@1999 TOPIC 12/23/16 20:00 01/22/17 19:59 12/29/16 20:45 Dextrose (Dextrose 50%) STAT PRN IV Hypoglycemia 12/22/16 12:00 01/19/17 11:59 Digoxin (Lanoxin) 0.25 mg DAILY GT 12/23/16 09:00 01/17/17 09:29 12/30/16 09:10 Gabapentin (Neurontin) 300 mg TID GT 12/22/16 13:00 01/18/17 13:59 12/30/16 09:10 Heparin Sodium (Porcine) (Heparin 5000 units/ml) 5,000 units EVERY 12 HOURS SUBQ 12/22/16 21:00 01/17/17 08:59 12/30/16 09:12 Hydroxyzine HCl (Atarax) 25 mg BID GT 12/22/16 18:00 01/17/17 08:59 12/30/16 09:11 Insulin Aspart (NovoLOG) Q6HR SUBQ 12/22/16 18:00 01/17/17 17:59 12/23/16 18:10 Ketorolac Tromethamine (Toradol 30mg) 15 mg Q6H PRN IV For Pain 12/28/16 14:00 01/02/17 13:59 12/30/16 05:24 Levothyroxine Sodium (Synthroid) 88 mcg ACBREAKFAST GT 12/29/16 06:30 01/28/17 06:29 12/29/16 10:18 Mirtazapine (Remeron) 15 mg BEDTIME GT 12/26/16 21:00 01/25/17 20:59 12/29/16 20:45 Nitroglycerin (Ntg) 0.4 mg Q5MIN X 3 DOSES PRN SL Prn Chest Pain 12/22/16 12:00 01/18/17 17:19 Ondansetron HCl (Zofran) 4 mg Q6H PRN IVP Nausea & Vomiting 12/22/16 12:00 01/16/17 11:59 Pioglitazone HCl (Actos) 15 mg DAILY GT 12/23/16 09:00 01/17/17 09:29 12/30/16 09:10 Polyethylene Glycol (Miralax) 17 gm DAILYPRN PRN ORAL Constipation 12/22/16 12:00 01/19/17 11:59 BHARGAVI DIMAS Dec 30, 2016 11:56
[2016-12-30 12:15] VITALS: BP 98/51
--- NOTE | 2016-12-30 14:55 | Pulmonology Progress Note ---
Assessment/Plan Assessment/Plan ASSESSMENT acute on chronic respiratory failure acute purulent bronchitis possible PNA, s/p Rx tracheostomy malfunctioning, s/p replacement of trach tube in ED COPD interstitial lung disease s/p decannulation hypothyroidism with elevated TSH dysphagia , G tube leaking G tube high aspiration risk depression sacrococcyx decub st 2 POA likely protein calorie malnutrition major depressive disorder PLAN OF CARE [facility] floor O2 HHN prn respiratory status stable after decannulation pulse ox stable on O2 via NC, no signs of respiratory distress sputum cx not collected, blood cx negative, stool C dif negative initially empiric abx for possible PNA, s/p rx a/tussive prn CXR with interstitial congestion leukocytosis resolved ID follows currently off abx, monitor clinically, no evidence of infection GT out - removed by GI BSSE and VSE done earlier , OK for quality of life to initiate diet as per recommendations with strict aspiration/reflux precautions and 1 to 1 supervision GI started on regular diet with texture modification as recommended by surgery follows, no need for surgical interventions DVT prophylaxis PT Rx continue TSH elevated, increase dose of levothyroxine Digoxin level stable BS management with SS of insulin and Actos, optimize as needed wound care as per wound nurse recommendations dietary eval noted, on dietary supplements as suggested psych follows per psych -no need for sitter , no need for psych hospital medical management with antidepressant GI eval appreciated for leaking G tube awaiting for decision from appeal challenging placement case discussed and evaluated by supervising physician Subjective Allergies: Coded Allergies: ACETAMINOPHEN (Unverified Allergy, Unknown, 12/17/16) CODEINE (Unverified Allergy, Unknown, 03/04/14) IODINE (Unverified Allergy, Unknown, 12/17/16) Subjective no signs of respiratory distress on O2 via NC pulse ox stable leaking G tube noted by nursing GI seen and evaluated Objective Last 24 Hour Vital Signs Date Time Temp Pulse Resp B/P (MAP) Pulse Ox O2 Delivery O2 Flow Rate FiO2 12/30/16 12:15 98.7 52 20 98/51 100 Nasal Cannula 3.0 12/30/16 09:10 71 12/30/16 08:29 97.7 71 20 104/58 98 Room Air 12/30/16 04:31 97.6 57 18 88/44 96 Nasal Cannula 12/30/16 00:00 97.2 61 18 125/60 93 Nasal Cannula 2.0 12/29/16 20:16 Nasal Cannula 2.0 28 12/29/16 20:16 99 Nasal Cannula 2.0 28 12/29/16 20:00 97.0 60 18 123/58 92 Nasal Cannula 2.0 12/29/16 15:38 97.7 60 17 95/50 95 Nasal Cannula 2.0 Intake and Output 12/30/16 12/31/16 19:00 07:00 Intake Total 420 ml Balance 420 ml Intake Oral 420 ml Objective General Appearance: no acute distress, cachetic HEENT: normocephalic, atraumatic, anicteric Respiratory/Chest: lungs clear with moderate air exchange, no respiratory distress, no accessory muscle use, other - old trach site with Band-aid C/D/I Cardiovascular: normal rate, regular rhythm, no JVD Abdomen: normal bowel sounds, soft, non tender Neurologic/Psychiatric: abnormal gait, alert, normal mood/affect Current Medications Medications (Trade) Dose Ordered Sig/Sandra Route PRN Reason Start Time Stop Time Status Last Admin Dose Admin Al Hydroxide/Mg Hydroxide (Mylanta II) 30 ml Q6H PRN GT dyspepsia 12/22/16 12:00 01/16/17 11:59 12/27/16 21:50 Chlorhexidine Gluconate (Chioma-Hex 2%) 1 applic DAILY@1999 TOPIC 12/23/16 20:00 01/22/17 19:59 12/29/16 20:45 Dextrose (Dextrose 50%) STAT PRN IV Hypoglycemia 12/22/16 12:00 01/19/17 11:59 Digoxin (Lanoxin) 0.25 mg DAILY GT 12/23/16 09:00 01/17/17 09:29 12/30/16 09:10 Gabapentin (Neurontin) 300 mg TID GT 12/22/16 13:00 01/18/17 13:59 12/30/16 13:00 Heparin Sodium (Porcine) (Heparin 5000 units/ml) 5,000 units EVERY 12 HOURS SUBQ 12/22/16 21:00 01/17/17 08:59 12/30/16 09:12 Hydroxyzine HCl (Atarax) 25 mg BID GT 12/22/16 18:00 01/17/17 08:59 12/30/16 09:11 Insulin Aspart (NovoLOG) Q6HR SUBQ 12/22/16 18:00 01/17/17 17:59 12/23/16 18:10 Ketorolac Tromethamine (Toradol 30mg) 15 mg Q6H PRN IV For Pain 12/28/16 14:00 01/02/17 13:59 12/30/16 05:24 Levothyroxine Sodium (Synthroid) 88 mcg ACBREAKFAST GT 12/29/16 06:30 01/28/17 06:29 12/29/16 10:18 Mirtazapine (Remeron) 15 mg BEDTIME GT 12/26/16 21:00 01/25/17 20:59 12/29/16 20:45 Nitroglycerin (Ntg) 0.4 mg Q5MIN X 3 DOSES PRN SL Prn Chest Pain 12/22/16 12:00 01/18/17 17:19 Ondansetron HCl (Zofran) 4 mg Q6H PRN IVP Nausea & Vomiting 12/22/16 12:00 01/16/17 11:59 Pioglitazone HCl (Actos) 15 mg DAILY GT 12/23/16 09:00 01/17/17 09:29 12/30/16 09:10 Polyethylene Glycol (Miralax) 17 gm DAILYPRN PRN ORAL Constipation 12/22/16 12:00 01/19/17 11:59 [place] GillJulianne bush NP Dec 30, 2016 14:55
[2016-12-30 16:00] VITALS: BP 99/56
--- NOTE | 2016-12-30 18:45 | General Progress Note ---
Assessment/Plan Status: stable, progressing Assessment/Plan mdd cont current meds provided ro/st Subjective Constitutional: Reports: malaise, weakness Neurologic/Psychiatric: Reports: anxiety, depressed, emotional problems Allergies: Coded Allergies: ACETAMINOPHEN (Unverified Allergy, Unknown, 12/17/16) CODEINE (Unverified Allergy, Unknown, 03/04/14) IODINE (Unverified Allergy, Unknown, 12/17/16) Objective Last 24 Hour Vital Signs Date Time Temp Pulse Resp B/P (MAP) Pulse Ox O2 Delivery O2 Flow Rate FiO2 12/30/16 16:00 97.3 67 19 99/56 98 Nasal Cannula 2.0 12/30/16 12:15 98.7 52 20 98/51 100 Nasal Cannula 3.0 12/30/16 09:10 71 12/30/16 08:29 97.7 71 20 104/58 98 Room Air 12/30/16 04:31 97.6 57 18 88/44 96 Nasal Cannula 12/30/16 00:00 97.2 61 18 125/60 93 Nasal Cannula 2.0 12/29/16 20:16 Nasal Cannula 2.0 28 12/29/16 20:16 99 Nasal Cannula 2.0 28 12/29/16 20:00 97.0 60 18 123/58 92 Nasal Cannula 2.0 Intake and Output 12/30/16 12/31/16 19:00 07:00 Intake Total 540 ml Output Total 150 ml Balance 390 ml Intake Oral 540 ml Output Urine Total 150 ml Height (Feet): 5 Height (Inches): 7.00 Weight (Pounds): 126 General Appearance: no apparent distress, alert, overweight Neurologic: alert, oriented x 3, responsive, depressed affect Kallie Fernandez M.D. Dec 30, 2016 18:45
--- NOTE | 2016-12-30 18:46 | Geriatric Progress Note ---
Assessment/Plan Discussed with: patient Subjective Interval Events 12/29/16 Constitutional: Reports: malaise, weakness Mood/Memory: Reports: see HPI, prior hx, anxiety, depressed feelings, emotional problems Sleep: Reports: sleeps well Geriatric Geriatric Last 24 Hour Vital Signs Date Time Temp Pulse Resp B/P (MAP) Pulse Ox O2 Delivery O2 Flow Rate FiO2 12/30/16 16:00 97.3 67 19 99/56 98 Nasal Cannula 2.0 12/30/16 12:15 98.7 52 20 98/51 100 Nasal Cannula 3.0 12/30/16 09:10 71 12/30/16 08:29 97.7 71 20 104/58 98 Room Air 12/30/16 04:31 97.6 57 18 88/44 96 Nasal Cannula 12/30/16 00:00 97.2 61 18 125/60 93 Nasal Cannula 2.0 12/29/16 20:16 Nasal Cannula 2.0 28 12/29/16 20:16 99 Nasal Cannula 2.0 28 12/29/16 20:00 97.0 60 18 123/58 92 Nasal Cannula 2.0 Intake and Output 12/30/16 12/31/16 19:00 07:00 Intake Total 540 ml Output Total 150 ml Balance 390 ml Intake Oral 540 ml Output Urine Total 150 ml Current Medications Medications (Trade) Dose Ordered Sig/Sandra Route PRN Reason Start Time Stop Time Status Last Admin Dose Admin Al Hydroxide/Mg Hydroxide (Mylanta II) 30 ml Q6H PRN GT dyspepsia 12/22/16 12:00 01/16/17 11:59 12/27/16 21:50 Chlorhexidine Gluconate (Chioma-Hex 2%) 1 applic DAILY@1999 TOPIC 12/23/16 20:00 01/22/17 19:59 12/29/16 20:45 Dextrose (Dextrose 50%) STAT PRN IV Hypoglycemia 12/22/16 12:00 01/19/17 11:59 Digoxin (Lanoxin) 0.25 mg DAILY GT 12/23/16 09:00 01/17/17 09:29 12/30/16 09:10 Gabapentin (Neurontin) 300 mg TID GT 12/22/16 13:00 01/18/17 13:59 12/30/16 17:40 Heparin Sodium (Porcine) (Heparin 5000 units/ml) 5,000 units EVERY 12 HOURS SUBQ 12/22/16 21:00 01/17/17 08:59 12/30/16 09:12 Hydroxyzine HCl (Atarax) 25 mg BID GT 12/22/16 18:00 01/17/17 08:59 12/30/16 17:40 Insulin Aspart (NovoLOG) AC+HS SUBQ 12/30/16 21:00 01/17/17 17:59 Ketorolac Tromethamine (Toradol 30mg) 15 mg Q6H PRN IV For Pain 12/28/16 14:00 01/02/17 13:59 12/30/16 17:40 Levothyroxine Sodium (Synthroid) 88 mcg ACBREAKFAST GT 12/29/16 06:30 01/28/17 06:29 12/29/16 10:18 Mirtazapine (Remeron) 15 mg BEDTIME GT 12/26/16 21:00 01/25/17 20:59 12/29/16 20:45 Nitroglycerin (Ntg) 0.4 mg Q5MIN X 3 DOSES PRN SL Prn Chest Pain 12/22/16 12:00 01/18/17 17:19 Ondansetron HCl (Zofran) 4 mg Q6H PRN IVP Nausea & Vomiting 12/22/16 12:00 01/16/17 11:59 Pioglitazone HCl (Actos) 15 mg DAILY GT 12/23/16 09:00 01/17/17 09:29 12/30/16 09:10 Polyethylene Glycol (Miralax) 17 gm DAILYPRN PRN ORAL Constipation 12/22/16 12:00 01/19/17 11:59 Height (Feet): 5 Height (Inches): 7.00 Weight (Pounds): 126 General Appearance: normal inspection, no apparent distress, alert, good eye contact, fairly groomed Psychiatric Behavior: cooperative Language/Speech: intact, fluent Orientation: person, place, time, situation Affect: appropriate Insight: Kallie Tong M.D. Dec 30, 2016 18:46
[2016-12-30 20:00] VITALS: BP 107/54
[2016-12-30] MEDS: Dyna-Hex 2% Top Sol 2oz TOPIC SCH (21:09)
[2016-12-31] VITALS (7 sets, daily range): BP systolic 97–120; BP diastolic 54–68
[2016-12-31] MEDS: NovoLOG Insulin Flexpen SUBQ SCH ×4 (05:37→21:00)
[2016-12-31] MEDS: Ketorolac 30mg Inj IV PRN ×2 (05:47→21:25)
[2016-12-31 07:23] LABS: BASOPHILS % (AUTO) 1.7 % (0.0-2.0); HEMATOCRIT 38.7 % (37.0-47.0); HEMOGLOBIN 12.1 G/DL (12.0-16.0); LYMPHOCYTES % (AUTO) 31.1 % (20.0-45.0); MEAN CORPUSCULAR VOLUME 95 FL (80-99); MONOCYTES % (AUTO) 5.2 % (1.0-10.0); PLATELET COUNT 351 K/UL (150-450); RED BLOOD COUNT 4.08 M/UL (4.20-5.40)
[2016-12-31 07:37] LABS: ANION GAP 3 (5-15); BLOOD UREA NITROGEN 19 mg/dL (7-18); CALCIUM 9.6 MG/DL (8.5-10.1); CARBON DIOXIDE 33 MMOL/L (21-32); CHLORIDE 103 MMOL/L (98-107); CREATININE 0.5 MG/DL (0.55-1.30); POTASSIUM 4.4 MMOL/L (3.5-5.1); SODIUM 139 MMOL/L (136-145)
[2016-12-31] MEDS: HydrOXYzine 25mg tab GT SCH ×2 (09:16→17:08)
[2016-12-31] MEDS: Heparin 5000 units/ml inj SUBQ SCH ×2 (09:23→21:31)
[2016-12-31] MEDS: Gabapentin 300 MG/6 ML Soln GT SCH ×3 (09:23→17:07)
--- NOTE | 2016-12-31 14:59 | GI Progress Note ---
Assessment/Plan Problems: (1) PEG (percutaneous endoscopic gastrostomy) adjustment/replacement/removal ICD Codes: Z43.1 - Encounter for attention to gastrostomy SNOMED: 498450871, 125861441 (2) Chronic pain ICD Codes: G89.29 - Other chronic pain SNOMED: 73654168 (3) Diabetes mellitus ICD Codes: E11.9 - Type 2 diabetes mellitus without complications SNOMED: 97345176 (4) Hypothyroidism ICD Codes: E03.9 - Hypothyroidism, unspecified SNOMED: 80580527 Status: stable Status Narrative Discussed with Dr. Mesa. Assessment/Plan cdiff negative s/p GT removal GT site care daily/prn adv to soft diet fu labs fu Hep C antibody The patient was seen and examined at bedside and all new and available data was reviewed in the patients chart. I agree with the above findings, impression and plan. (Patient seen earlier today. Signature stamp does not reflect patient encounter time.). - Patrick Mesa MD Subjective Gastrointestinal/Abdominal: Reports: no symptoms Subjective hungry Objective Last 24 Hour Vital Signs Date Time Temp Pulse Resp B/P (MAP) Pulse Ox O2 Delivery O2 Flow Rate FiO2 12/31/16 12:00 97.3 66 18 120/68 96 Nasal Cannula 2.0 12/31/16 09:16 62 12/31/16 08:00 96.1 62 20 117/64 97 Room Air 2.0 12/31/16 06:17 96.3 12/31/16 06:11 61 105/54 12/31/16 04:11 99 Nasal Cannula 2.0 28 12/31/16 04:11 Nasal Cannula 2.0 28 12/31/16 03:37 96.3 66 20 97/54 98 Room Air 12/31/16 00:00 96.8 65 18 117/68 99 Nasal Cannula 2.0 12/30/16 20:00 97.0 70 18 107/54 94 Nasal Cannula 2.0 12/30/16 16:00 97.3 67 19 99/56 98 Nasal Cannula 2.0 Laboratory Tests Test 12/31/16 05:40 White Blood Count 9.0 K/UL (4.8-10.8) Red Blood Count 4.08 M/UL (4.20-5.40) L Hemoglobin 12.1 G/DL (12.0-16.0) Hematocrit 38.7 % (37.0-47.0) Mean Corpuscular Volume 95 FL (80-99) Mean Corpuscular Hemoglobin 29.7 PG (27.0-31.0) Mean Corpuscular Hemoglobin Concent 31.3 G/DL (32.0-36.0) L Red Cell Distribution Width 15.0 % (11.6-14.8) H Platelet Count 351 K/UL (150-450) Mean Platelet Volume 7.4 FL (6.5-10.1) Neutrophils (%) (Auto) 54.0 % (45.0-75.0) Lymphocytes (%) (Auto) 31.1 % (20.0-45.0) Monocytes (%) (Auto) 5.2 % (1.0-10.0) Eosinophils (%) (Auto) 8.0 % (0.0-3.0) H Basophils (%) (Auto) 1.7 % (0.0-2.0) Sodium Level 139 MMOL/L (136-145) Potassium Level 4.4 MMOL/L (3.5-5.1) Chloride Level 103 MMOL/L (98-107) Carbon Dioxide Level 33 MMOL/L (21-32) H Anion Gap 3 (5-15) L Blood Urea Nitrogen 19 mg/dL (7-18) H Creatinine 0.5 MG/DL (0.55-1.30) L Estimat Glomerular Filtration Rate > 60 mL/min (>60) Glucose Level 70 MG/DL (74-106) L Calcium Level 9.6 MG/DL (8.5-10.1) Height (Feet): 5 Height (Inches): 7.00 Weight (Pounds): 126 General Appearance: no apparent distress, alert Cardiovascular: normal rate Respiratory/Chest: lungs clear, no respiratory distress Abdominal Exam: GT site - closed Shruti Roberson N.P. Dec 31, 2016 14:59 DIAZ MESA Jan 04, 2017 08:11
--- NOTE | 2016-12-31 14:59 | GI Progress Note ---
Assessment/Plan Problems: (1) PEG (percutaneous endoscopic gastrostomy) adjustment/replacement/removal ICD Codes: Z43.1 - Encounter for attention to gastrostomy SNOMED: 095399241, 898687354 (2) Chronic pain ICD Codes: G89.29 - Other chronic pain SNOMED: 53168102 (3) Diabetes mellitus ICD Codes: E11.9 - Type 2 diabetes mellitus without complications SNOMED: 48766516 (4) Hypothyroidism ICD Codes: E03.9 - Hypothyroidism, unspecified SNOMED: 44943011 Status: stable Status Narrative Discussed with Dr. Mesa. Assessment/Plan cdiff negative s/p GT removal GT site care daily/prn adv to soft diet fu labs fu Hep C antibody The patient was seen and examined at bedside and all new and available data was reviewed in the patients chart. I agree with the above findings, impression and plan. (Patient seen earlier today. Signature stamp does not reflect patient encounter time.). - Patrick Mesa MD Subjective Gastrointestinal/Abdominal: Reports: no symptoms Subjective hungry Objective Last 24 Hour Vital Signs Date Time Temp Pulse Resp B/P (MAP) Pulse Ox O2 Delivery O2 Flow Rate FiO2 12/31/16 12:00 97.3 66 18 120/68 96 Nasal Cannula 2.0 12/31/16 09:16 62 12/31/16 08:00 96.1 62 20 117/64 97 Room Air 2.0 12/31/16 06:17 96.3 12/31/16 06:11 61 105/54 12/31/16 04:11 99 Nasal Cannula 2.0 28 12/31/16 04:11 Nasal Cannula 2.0 28 12/31/16 03:37 96.3 66 20 97/54 98 Room Air 12/31/16 00:00 96.8 65 18 117/68 99 Nasal Cannula 2.0 12/30/16 20:00 97.0 70 18 107/54 94 Nasal Cannula 2.0 12/30/16 16:00 97.3 67 19 99/56 98 Nasal Cannula 2.0 Laboratory Tests Test 12/31/16 05:40 White Blood Count 9.0 K/UL (4.8-10.8) Red Blood Count 4.08 M/UL (4.20-5.40) L Hemoglobin 12.1 G/DL (12.0-16.0) Hematocrit 38.7 % (37.0-47.0) Mean Corpuscular Volume 95 FL (80-99) Mean Corpuscular Hemoglobin 29.7 PG (27.0-31.0) Mean Corpuscular Hemoglobin Concent 31.3 G/DL (32.0-36.0) L Red Cell Distribution Width 15.0 % (11.6-14.8) H Platelet Count 351 K/UL (150-450) Mean Platelet Volume 7.4 FL (6.5-10.1) Neutrophils (%) (Auto) 54.0 % (45.0-75.0) Lymphocytes (%) (Auto) 31.1 % (20.0-45.0) Monocytes (%) (Auto) 5.2 % (1.0-10.0) Eosinophils (%) (Auto) 8.0 % (0.0-3.0) H Basophils (%) (Auto) 1.7 % (0.0-2.0) Sodium Level 139 MMOL/L (136-145) Potassium Level 4.4 MMOL/L (3.5-5.1) Chloride Level 103 MMOL/L (98-107) Carbon Dioxide Level 33 MMOL/L (21-32) H Anion Gap 3 (5-15) L Blood Urea Nitrogen 19 mg/dL (7-18) H Creatinine 0.5 MG/DL (0.55-1.30) L Estimat Glomerular Filtration Rate > 60 mL/min (>60) Glucose Level 70 MG/DL (74-106) L Calcium Level 9.6 MG/DL (8.5-10.1) Height (Feet): 5 Height (Inches): 7.00 Weight (Pounds): 126 General Appearance: no apparent distress, alert Cardiovascular: normal rate Respiratory/Chest: lungs clear, no respiratory distress Abdominal Exam: GT site - closed Shruti Roberson N.P. Dec 31, 2016 14:59 DIAZ MESA Jan 04, 2017 08:11
--- NOTE | 2016-12-31 14:59 | GI Progress Note ---
Assessment/Plan Problems: (1) PEG (percutaneous endoscopic gastrostomy) adjustment/replacement/removal ICD Codes: Z43.1 - Encounter for attention to gastrostomy SNOMED: 411480374, 702749656 (2) Chronic pain ICD Codes: G89.29 - Other chronic pain SNOMED: 70973018 (3) Diabetes mellitus ICD Codes: E11.9 - Type 2 diabetes mellitus without complications SNOMED: 44754138 (4) Hypothyroidism ICD Codes: E03.9 - Hypothyroidism, unspecified SNOMED: 00193264 Status: stable Status Narrative Discussed with Dr. Mesa. Assessment/Plan cdiff negative s/p GT removal GT site care daily/prn adv to soft diet fu labs fu Hep C antibody The patient was seen and examined at bedside and all new and available data was reviewed in the patients chart. I agree with the above findings, impression and plan. (Patient seen earlier today. Signature stamp does not reflect patient encounter time.). - Patrick Mesa MD Subjective Gastrointestinal/Abdominal: Reports: no symptoms Subjective hungry Objective Last 24 Hour Vital Signs Date Time Temp Pulse Resp B/P (MAP) Pulse Ox O2 Delivery O2 Flow Rate FiO2 12/31/16 12:00 97.3 66 18 120/68 96 Nasal Cannula 2.0 12/31/16 09:16 62 12/31/16 08:00 96.1 62 20 117/64 97 Room Air 2.0 12/31/16 06:17 96.3 12/31/16 06:11 61 105/54 12/31/16 04:11 99 Nasal Cannula 2.0 28 12/31/16 04:11 Nasal Cannula 2.0 28 12/31/16 03:37 96.3 66 20 97/54 98 Room Air 12/31/16 00:00 96.8 65 18 117/68 99 Nasal Cannula 2.0 12/30/16 20:00 97.0 70 18 107/54 94 Nasal Cannula 2.0 12/30/16 16:00 97.3 67 19 99/56 98 Nasal Cannula 2.0 Laboratory Tests Test 12/31/16 05:40 White Blood Count 9.0 K/UL (4.8-10.8) Red Blood Count 4.08 M/UL (4.20-5.40) L Hemoglobin 12.1 G/DL (12.0-16.0) Hematocrit 38.7 % (37.0-47.0) Mean Corpuscular Volume 95 FL (80-99) Mean Corpuscular Hemoglobin 29.7 PG (27.0-31.0) Mean Corpuscular Hemoglobin Concent 31.3 G/DL (32.0-36.0) L Red Cell Distribution Width 15.0 % (11.6-14.8) H Platelet Count 351 K/UL (150-450) Mean Platelet Volume 7.4 FL (6.5-10.1) Neutrophils (%) (Auto) 54.0 % (45.0-75.0) Lymphocytes (%) (Auto) 31.1 % (20.0-45.0) Monocytes (%) (Auto) 5.2 % (1.0-10.0) Eosinophils (%) (Auto) 8.0 % (0.0-3.0) H Basophils (%) (Auto) 1.7 % (0.0-2.0) Sodium Level 139 MMOL/L (136-145) Potassium Level 4.4 MMOL/L (3.5-5.1) Chloride Level 103 MMOL/L (98-107) Carbon Dioxide Level 33 MMOL/L (21-32) H Anion Gap 3 (5-15) L Blood Urea Nitrogen 19 mg/dL (7-18) H Creatinine 0.5 MG/DL (0.55-1.30) L Estimat Glomerular Filtration Rate > 60 mL/min (>60) Glucose Level 70 MG/DL (74-106) L Calcium Level 9.6 MG/DL (8.5-10.1) Height (Feet): 5 Height (Inches): 7.00 Weight (Pounds): 126 General Appearance: no apparent distress, alert Cardiovascular: normal rate Respiratory/Chest: lungs clear, no respiratory distress Abdominal Exam: GT site - closed Shruti Roberson N.P. Dec 31, 2016 14:59 DIAZ MESA Jan 04, 2017 08:11
[2016-12-31] MEDS: Dyna-Hex 2% Top Sol 2oz TOPIC SCH (21:24)
--- NOTE | 2016-12-31 21:50 | General Progress Note ---
Assessment/Plan Status: stable, progressing Assessment/Plan mdd cont current meds provided ro/st Subjective Neurologic/Psychiatric: Reports: anxiety, depressed, emotional problems Allergies: Coded Allergies: ACETAMINOPHEN (Unverified Allergy, Unknown, 12/17/16) CODEINE (Unverified Allergy, Unknown, 03/04/14) IODINE (Unverified Allergy, Unknown, 12/17/16) Subjective pt worried about medical condition and future Objective Last 24 Hour Vital Signs Date Time Temp Pulse Resp B/P (MAP) Pulse Ox O2 Delivery O2 Flow Rate FiO2 12/31/16 20:27 97.6 50 19 111/60 98 Nasal Cannula 12/31/16 16:00 97.5 75 18 119/65 98 Nasal Cannula 2.0 12/31/16 12:00 97.3 66 18 120/68 96 Nasal Cannula 2.0 12/31/16 09:16 62 12/31/16 08:00 96.1 62 20 117/64 97 Room Air 2.0 12/31/16 06:17 96.3 12/31/16 06:11 61 105/54 12/31/16 04:11 99 Nasal Cannula 2.0 28 12/31/16 04:11 Nasal Cannula 2.0 28 12/31/16 03:37 96.3 66 20 97/54 98 Room Air 12/31/16 00:00 96.8 65 18 117/68 99 Nasal Cannula 2.0 Intake and Output 12/31/16 01/01/17 19:00 07:00 Intake Total 600 ml Balance 600 ml Intake Oral 600 ml # Voids 1 Laboratory Tests 12/31/16 05:40: White Blood Count 9.0, Red Blood Count 4.08L, Hemoglobin 12.1, Hematocrit 38.7, Mean Corpuscular Volume 95, Mean Corpuscular Hemoglobin 29.7, Mean Corpuscular Hemoglobin Concent 31.3L, Red Cell Distribution Width 15.0H, Platelet Count 351 , Mean Platelet Volume 7.4, Neutrophils (%) (Auto) 54.0, Lymphocytes (%) (Auto) 31.1, Monocytes (%) (Auto) 5.2, Eosinophils (%) (Auto) 8.0H, Basophils (%) (Auto ) 1.7, Sodium Level 139, Potassium Level 4.4, Chloride Level 103, Carbon Dioxide Level 33H, Anion Gap 3L, Blood Urea Nitrogen 19H, Creatinine 0.5L, Estimat Glomerular Filtration Rate > 60, Glucose Level 70L, Calcium Level 9.6 Height (Feet): 5 Height (Inches): 7.00 Weight (Pounds): 126 General Appearance: no apparent distress, alert, overweight Neurologic: alert, oriented x 3, responsive, depressed affect Kallie Fernandez M.D. Dec 31, 2016 21:50
--- NOTE | 2016-12-31 21:54 | Pulmonology Progress Note ---
Assessment/Plan Problems: (1) Purulent bronchitis (2) Acute and chronic respiratory failure ([id number]) (3) Tracheostomy malfunction (4) COPD (chronic obstructive pulmonary disease) (5) Interstitial lung disease (6) Diabetes mellitus (7) Hypothyroidism Assessment/Plan symptomatic treatment tolerating off trach, respiratory treatment check sputum psych evaluation all notes reviewed awaiting discharge Subjective ROS Limited/Unobtainable: No Constitutional: Reports: no symptoms HEENT: Repors: no symptoms Respiratory: Reports: no symptoms Allergies: Coded Allergies: ACETAMINOPHEN (Unverified Allergy, Unknown, 12/17/16) CODEINE (Unverified Allergy, Unknown, 03/04/14) IODINE (Unverified Allergy, Unknown, 12/17/16) Objective Last 24 Hour Vital Signs Date Time Temp Pulse Resp B/P (MAP) Pulse Ox O2 Delivery O2 Flow Rate FiO2 12/31/16 20:27 97.6 50 19 111/60 98 Nasal Cannula 12/31/16 16:00 97.5 75 18 119/65 98 Nasal Cannula 2.0 12/31/16 12:00 97.3 66 18 120/68 96 Nasal Cannula 2.0 12/31/16 09:16 62 12/31/16 08:00 96.1 62 20 117/64 97 Room Air 2.0 12/31/16 06:17 96.3 12/31/16 06:11 61 105/54 12/31/16 04:11 99 Nasal Cannula 2.0 28 12/31/16 04:11 Nasal Cannula 2.0 28 12/31/16 03:37 96.3 66 20 97/54 98 Room Air 12/31/16 00:00 96.8 65 18 117/68 99 Nasal Cannula 2.0 Intake and Output 12/31/16 01/01/17 19:00 07:00 Intake Total 600 ml Balance 600 ml Intake Oral 600 ml # Voids 1 Objective General Appearance: no acute distress, cachetic HEENT: normocephalic, atraumatic Respiratory/Chest: chest wall non-tender, lungs clear, normal breath sounds Cardiovascular: normal peripheral pulses, normal rate Abdomen: normal bowel sounds, soft, non tender Genitourinary: normal external genitalia Extremities: no cyanosis Skin: no rash Laboratory Tests 12/31/16 05:40: White Blood Count 9.0, Red Blood Count 4.08L, Hemoglobin 12.1, Hematocrit 38.7, Mean Corpuscular Volume 95, Mean Corpuscular Hemoglobin 29.7, Mean Corpuscular Hemoglobin Concent 31.3L, Red Cell Distribution Width 15.0H, Platelet Count 351 , Mean Platelet Volume 7.4, Neutrophils (%) (Auto) 54.0, Lymphocytes (%) (Auto) 31.1, Monocytes (%) (Auto) 5.2, Eosinophils (%) (Auto) 8.0H, Basophils (%) (Auto ) 1.7, Sodium Level 139, Potassium Level 4.4, Chloride Level 103, Carbon Dioxide Level 33H, Anion Gap 3L, Blood Urea Nitrogen 19H, Creatinine 0.5L, Estimat Glomerular Filtration Rate > 60, Glucose Level 70L, Calcium Level 9.6 Current Medications Medications (Trade) Dose Ordered Sig/Sandra Route PRN Reason Start Time Stop Time Status Last Admin Dose Admin Al Hydroxide/Mg Hydroxide (Mylanta II) 30 ml Q6H PRN GT dyspepsia 12/22/16 12:00 01/16/17 11:59 12/27/16 21:50 Chlorhexidine Gluconate (Chioma-Hex 2%) 1 applic DAILY@2000 TOPIC 12/23/16 20:00 01/22/17 19:59 12/31/16 21:24 Dextrose (Dextrose 50%) STAT PRN IV Hypoglycemia 12/22/16 12:00 01/19/17 11:59 Digoxin (Lanoxin) 0.25 mg DAILY GT 12/23/16 09:00 01/17/17 09:29 12/31/16 09:16 Gabapentin (Neurontin) 300 mg TID GT 12/22/16 13:00 01/18/17 13:59 12/31/16 17:07 Heparin Sodium (Porcine) (Heparin 5000 units/ml) 5,000 units EVERY 12 HOURS SUBQ 12/22/16 21:00 01/17/17 08:59 12/31/16 21:31 Hydroxyzine HCl (Atarax) 25 mg BID GT 12/22/16 18:00 01/17/17 08:59 12/31/16 17:08 Insulin Aspart (NovoLOG) AC+HS SUBQ 12/30/16 21:00 01/17/17 17:59 Ketorolac Tromethamine (Toradol 30mg) 15 mg Q6H PRN IV For Pain 12/28/16 14:00 01/02/17 13:59 12/31/16 21:25 Levothyroxine Sodium (Synthroid) 88 mcg ACBREAKFAST GT 12/29/16 06:30 01/28/17 06:29 12/31/16 05:47 Mirtazapine (Remeron) 15 mg BEDTIME GT 12/26/16 21:00 01/25/17 20:59 12/31/16 21:25 Nitroglycerin (Ntg) 0.4 mg Q5MIN X 3 DOSES PRN SL Prn Chest Pain 12/22/16 12:00 01/18/17 17:19 Ondansetron HCl (Zofran) 4 mg Q6H PRN IVP Nausea & Vomiting 12/22/16 12:00 01/16/17 11:59 Pioglitazone HCl (Actos) 15 mg DAILY GT 12/23/16 09:00 01/17/17 09:29 12/31/16 09:17 Polyethylene Glycol (Miralax) 17 gm DAILYPRN PRN ORAL Constipation 12/22/16 12:00 01/19/17 11:59 DEDRICK SOLANO Dec 31, 2016 21:54
[2017-01-01 00:22] VITALS: BP 137/76
[2017-01-01 03:46] VITALS: BP 95/53
[2017-01-01] MEDS: Ketorolac 30mg Inj IV PRN ×3 (05:27→20:35)
[2017-01-01] MEDS: NovoLOG Insulin Flexpen SUBQ SCH ×4 (06:30→21:00)
[2017-01-01 07:11] LABS: BASOPHILS % (AUTO) 1.8 % (0.0-2.0); EOSINOPHILS % (AUTO) 6.1 % (0.0-3.0); HEMOGLOBIN 12.2 G/DL (12.0-16.0); LYMPHOCYTES % (AUTO) 26.6 % (20.0-45.0); MEAN CORPUSCULAR VOLUME 94 FL (80-99); NEUTROPHILS % (AUTO) 59.5 % (45.0-75.0); PLATELET COUNT 332 K/UL (150-450); RED BLOOD COUNT 4.05 M/UL (4.20-5.40); RED CELL DISTRIBUTION WIDTH 15.1 % (11.6-14.8); WHITE BLOOD COUNT 9.8 K/UL (4.8-10.8)
[2017-01-01 07:50] LABS: ANION GAP 7 mmol/L (5-15); BLOOD UREA NITROGEN 13 mg/dL (7-18); CALCIUM 9.8 MG/DL (8.5-10.1); CARBON DIOXIDE 30 MMOL/L (21-32); CHLORIDE 104 MMOL/L (98-107); CREATININE 0.4 MG/DL (0.55-1.30); POTASSIUM 4.2 MMOL/L (3.5-5.1); SODIUM 141 MMOL/L (136-145)
--- NOTE | 2017-01-01 08:17 | Consultation ---
DATE OF CONSULTATION: 12/30/2016 GASTROLOGY CONSULTATION CHIEF COMPLAINT: Abdominal pain, G-tube malfunctioning, and anemia. HISTORY OF PRESENT ILLNESS: The patient is a poor historian, but reviewed most of history per chart. The patient apparently had a G-tube placed. She has a history of gastric bypass surgery according to her in 2004 and she has been losing weight. At one point, they put a surgical J-tube for her. Currently, there is a big Driscoll catheter at the J-tube site. Apparently, it was sutured and suture came out. The patient is complaining of severe pain at the G-tube site or jejunostomy site. She said she does not want a G-tube. She wanted it to be removed. She wants to eat. She does not want to have any enteral feeding. She seemed to be alert and understanding of what is going on. PAST MEDICAL HISTORY: 1. Psychiatric disorder. 2. Prior history of alcohol and drug abuse. 3. History of DVT. 4. COPD. 5. Hypothyroidism. 6. History of hip surgery. 7. History of a spinal fusion. 8. Gastric bypass. 9. Anemia. PAST SURGICAL HISTORY: She had gastric bypass surgery, orthopedic surgeries, and spinal surgeries. MEDICATIONS: Please see medication reconciliation list. ALLERGIES: Acetaminophen, Codeine, and iodine. SOCIAL HISTORY: The patient is a smoker. Prior history of alcohol and IV drug use. REVIEW OF SYSTEMS: A 10-point review of systems was performed and pertinent positives as dictated in the history of present illness. PHYSICAL EXAMINATION: VITAL SIGNS: Temperature 97.7 degrees, pulse 74, respirations 20, and blood pressure 104/58. HEENT: Normocephalic and atraumatic. Sclerae anicteric. NECK: Supple. No evidence of obvious lymphadenopathy. CARDIOVASCULAR: Regular rhythm. Plus S1 and S2. No obvious murmur. LUNGS: Decreased breath sounds bilaterally based on supine exam. ABDOMEN: Soft. There is a scar in the midline from prior abdominal surgeries. There is a Driscoll catheter at the jejunostomy site, which is a large one. EXTREMITIES: No cyanosis. No clubbing. No edema. LABORATORY DATA: White count 7.7, hemoglobin 11.9, hematocrit 39, and platelet count is 343. Chem-7: Sodium 145, potassium 4.6, BUN 17, and creatinine 0.4. ASSESSMENT AND PLAN: The patient is a 66-year-old female with numerous medical problems as listed above. From the GI standpoint, the patient does not want to have this J-tube. She wanted it to be adamantly removed. I with the nurse at the bedside. She seems to be alert and oriented to time and place and her name and she said under no circumstances, she wants to get enteral feeding anymore, she wants to try to eat by herself. Apparently, she passed the swallow her pureed diet as she is currently on pureed diet. So at the patient's request, we will remove the tube and we will let the site close. No shower for 24 hours. The patient will be informed that if she needs another feeding that will be mostly probably need surgery for inserting a new tube for which she states she understands it and she does not want the tube at this time. I want to thank Dr. Herrera for this kind referral. Olivier Mesa M.D. DR: JOSE JOB#: [id number] CC: Quincy Herrera M.D.; Fax#: [phone]
[2017-01-01 08:28] VITALS: BP 107/61
[2017-01-01] MEDS: HydrOXYzine 25mg tab GT SCH ×2 (09:25→17:47)
[2017-01-01] MEDS: Gabapentin 300 MG/6 ML Soln GT SCH ×3 (09:28→17:47)
[2017-01-01] MEDS: Heparin 5000 units/ml inj SUBQ SCH ×2 (09:31→20:41)
--- NOTE | 2017-01-01 12:40 | Infectious Diseases Prog Note ---
Assessment/Plan Assessment/Plan Assessment: SOB- likely related to malpositioned trach +/- ?PNA- resolved Possible PNA, s/p Rx -CXR: Interstitial disease nonspecific. CHF, pneumonitis not excluded -spu cx ordered, not collected Leukocytosis- ?reactive vs 2ry to PNA vs combination- resolved -Bcx Neg -u/a WBC 2-4 Diarrhea- neg cdiff COPD and chronic tracheostomy- s/p trach decanulized 12/21 CHF, spinal fusion, DVT, s/p hip surgery, chronic pain, long term resident No ABX allergies Full Code Plan: -Continue to monitor off abx -s/p 5d IV Ceftriaxone/azithromycin 12/21 -s/p 1 d IV Vanco/Cefpime 12/18 -s/p 1d Levaquin 12/17 -f/u Hep C ab (per patient request) -Monitor CBC/BMP, temperatures -Aspiration precautions. Subjective Allergies: Coded Allergies: ACETAMINOPHEN (Unverified Allergy, Unknown, 12/17/16) CODEINE (Unverified Allergy, Unknown, 03/04/14) IODINE (Unverified Allergy, Unknown, 12/17/16) Subjective remains afebrile appears comfortable Objective Vital Signs Last 24 Hour Vital Signs Date Time Temp Pulse Resp B/P (MAP) Pulse Ox O2 Delivery O2 Flow Rate FiO2 01/01/17 09:00 53 01/01/17 08:28 97.9 53 20 107/61 99 Room Air 01/01/17 07:51 Nasal Cannula 2.0 28 01/01/17 07:50 99 Nasal Cannula 2.0 28 01/01/17 05:57 97.1 01/01/17 03:46 97.1 54 19 95/53 98 Nasal Cannula 01/01/17 00:22 97.7 71 19 137/76 98 Nasal Cannula 12/31/16 20:27 97.6 50 19 111/60 98 Nasal Cannula 12/31/16 16:00 97.5 75 18 119/65 98 Nasal Cannula 2.0 Height (Feet): 5 Height (Inches): 7.00 Weight (Pounds): 126 General Appearance: no acute distress Respiratory/Chest: no respiratory distress Cardiovascular: normal rate, regular rhythm Abdomen: normal bowel sounds, soft, non tender, non distended Laboratory Tests Test 01/01/17 05:45 White Blood Count 9.8 K/UL (4.8-10.8) Red Blood Count 4.05 M/UL (4.20-5.40) L Hemoglobin 12.2 G/DL (12.0-16.0) Hematocrit 38.0 % (37.0-47.0) Mean Corpuscular Volume 94 FL (80-99) Mean Corpuscular Hemoglobin 30.1 PG (27.0-31.0) Mean Corpuscular Hemoglobin Concent 32.1 G/DL (32.0-36.0) Red Cell Distribution Width 15.1 % (11.6-14.8) H Platelet Count 332 K/UL (150-450) Mean Platelet Volume 7.1 FL (6.5-10.1) Neutrophils (%) (Auto) 59.5 % (45.0-75.0) Lymphocytes (%) (Auto) 26.6 % (20.0-45.0) Monocytes (%) (Auto) 6.0 % (1.0-10.0) Eosinophils (%) (Auto) 6.1 % (0.0-3.0) H Basophils (%) (Auto) 1.8 % (0.0-2.0) Sodium Level 141 MMOL/L (136-145) Potassium Level 4.2 MMOL/L (3.5-5.1) Chloride Level 104 MMOL/L (98-107) Carbon Dioxide Level 30 MMOL/L (21-32) Anion Gap 7 mmol/L (5-15) Blood Urea Nitrogen 13 mg/dL (7-18) Creatinine 0.4 MG/DL (0.55-1.30) L Estimat Glomerular Filtration Rate > 60 mL/min (>60) Glucose Level 79 MG/DL (74-106) Calcium Level 9.8 MG/DL (8.5-10.1) Current Medications Medications (Trade) Dose Ordered Sig/Sandra Route PRN Reason Start Time Stop Time Status Last Admin Dose Admin Al Hydroxide/Mg Hydroxide (Mylanta II) 30 ml Q6H PRN GT dyspepsia 12/22/16 12:00 01/16/17 11:59 12/27/16 21:50 Chlorhexidine Gluconate (Chioma-Hex 2%) 1 applic DAILY@1999 TOPIC 12/23/16 20:00 01/22/17 19:59 12/31/16 21:24 Dextrose (Dextrose 50%) STAT PRN IV Hypoglycemia 12/22/16 12:00 01/19/17 11:59 Digoxin (Lanoxin) 0.25 mg DAILY GT 12/23/16 09:00 01/17/17 09:29 12/31/16 09:16 Gabapentin (Neurontin) 300 mg TID GT 12/22/16 13:00 01/18/17 13:59 01/01/17 09:28 Heparin Sodium (Porcine) (Heparin 5000 units/ml) 5,000 units EVERY 12 HOURS SUBQ 12/22/16 21:00 01/17/17 08:59 01/01/17 09:31 Hydroxyzine HCl (Atarax) 25 mg BID GT 12/22/16 18:00 01/17/17 08:59 01/01/17 09:25 Insulin Aspart (NovoLOG) AC+HS SUBQ 12/30/16 21:00 01/17/17 17:59 Ketorolac Tromethamine (Toradol 30mg) 15 mg Q6H PRN IV For Pain 12/28/16 14:00 01/02/17 13:59 01/01/17 05:27 Levothyroxine Sodium (Synthroid) 88 mcg ACBREAKFAST GT 12/29/16 06:30 01/28/17 06:29 01/01/17 05:27 Mirtazapine (Remeron) 15 mg BEDTIME GT 12/26/16 21:00 01/25/17 20:59 12/31/16 21:25 Nitroglycerin (Ntg) 0.4 mg Q5MIN X 3 DOSES PRN SL Prn Chest Pain 12/22/16 12:00 01/18/17 17:19 Ondansetron HCl (Zofran) 4 mg Q6H PRN IVP Nausea & Vomiting 12/22/16 12:00 01/16/17 11:59 Pioglitazone HCl (Actos) 15 mg DAILY GT 12/23/16 09:00 01/17/17 09:29 01/01/17 09:27 Polyethylene Glycol (Miralax) 17 gm DAILYPRN PRN ORAL Constipation 12/22/16 12:00 01/19/17 11:59 JESENIA JEFF Jan 01, 2017 12:40
[2017-01-01 12:43] VITALS: BP 110/65
--- NOTE | 2017-01-01 14:37 | Wound Care Consultation ---
Wound Assessment Wound Assessment #1: Wound Number: 1 Wound Present on Admission: Yes New Wound: No Status Change of Wound: No Wound Location Body Site Modif: mid Wound Location Body Site: other - sacrococcygeal ,right and left buttock Wound Type: pressure ulcer Fahad Test: Does not Fahad Pressure Ulcer Stage: II - scattered stage 2 Wound Thickness: Partial Thickness Percent of Wound [place]/Red: 100 Wound Drainage Description: Serosanguineous Wound Drainage Amount: Scant Wound Drainage Odor: None/Absent Tissue Surrounding Wound: Macerated Wound General Appearance: Reddened, Draining Wound Assessment #2: Wound Number: 2 Wound Present on Admission: Yes New Wound: No Status Change of Wound: No Wound Location Body Site Modif: left, anterior Wound Location Body Site: chest Wound Type: traumatic injury - skin tear Fahad Test: Does not Fahad Wound Thickness: Partial Thickness Wound Length: 2.0 Wound Width: 4.5 Wound Depth: 0.1 Percent of Wound [place]/Red: 100 Wound Drainage Description: Serosanguineous Wound Drainage Amount: Moderate Wound Drainage Odor: None/Absent Tissue Surrounding Wound: Erythemic Wound General Appearance: Reddened Wound Assessment #3: Wound Number: 3 Wound Present on Admission: Yes New Wound: No Status Change of Wound: No Wound Location Body Site Modif: mid Wound Location Body Site: back Wound Type: other - resurfaced open scar tissue resolving Wound Thickness: Partial Thickness Wound Length: 4.0 Wound Width: 0.5 Wound Depth: less than 0.1 Percent of Wound [place]/Red: 100 Wound Drainage Description: Serosanguineous Wound Drainage Amount: Scant Wound Drainage Odor: None/Absent Tissue Surrounding Wound: Intact Wound General Appearance: Reddened Wound Comment #1 Extensive scattered stage II pressure ulcer on Sacrococcygeal, left and right buttock.- no further deterioration, continue wound care as ordered effective. #2 Left upper chest skin tear with partial thickness skin loss.-no further deterioration, continue wound care as ordered effective. #3 Mid lower back full thickness scar, resurfaced open wound-no further deterioration, continue wound care as ordered effective, resolving #4 Left trochanter intact full thickness scar tissue. -intact #5 tracheostomy site noted with two intact/clean sutures.-intact, dry patient made aware of importance for repositioning,avoid shear, and offloading sacral area. patient repositioned on side to offload sacral area. -keep clean and dry, provide gentle perineal care. Recommendation -Local wound care per protocol -Offload both heels -Heel protector on both heels -Optimize nutrition -Keep clean and dry -Turn and reposition - Apply Low air loss mattress SPR mattress for wound and skin management. -Assess and f/u accordingly for any changes MARIA LUISA SERRA Jan 01, 2017 14:37
--- NOTE | 2017-01-01 15:37 | GI Progress Note ---
Assessment/Plan Problems: (1) PEG (percutaneous endoscopic gastrostomy) adjustment/replacement/removal ICD Codes: Z43.1 - Encounter for attention to gastrostomy SNOMED: 790929479, 812188970 (2) Chronic pain ICD Codes: G89.29 - Other chronic pain SNOMED: 84348801 (3) Diabetes mellitus ICD Codes: E11.9 - Type 2 diabetes mellitus without complications SNOMED: 38775016 (4) Hypothyroidism ICD Codes: E03.9 - Hypothyroidism, unspecified SNOMED: 79228432 Status: stable, unchanged Status Narrative Discussed with Dr. Mesa. Assessment/Plan okay for DC per GI standpoint cdiff negative s/p GT removal GT site care daily/prn soft diet, push PO fu labs fu Hep C antibody Subjective Subjective hungry, tolerating diet Objective Last 24 Hour Vital Signs Date Time Temp Pulse Resp B/P (MAP) Pulse Ox O2 Delivery O2 Flow Rate FiO2 01/01/17 12:43 98.0 56 20 110/65 99 Room Air 01/01/17 09:00 53 01/01/17 08:28 97.9 53 20 107/61 99 Room Air 01/01/17 07:51 Nasal Cannula 2.0 28 01/01/17 07:50 99 Nasal Cannula 2.0 28 01/01/17 05:57 97.1 01/01/17 03:46 97.1 54 19 95/53 98 Nasal Cannula 01/01/17 00:22 97.7 71 19 137/76 98 Nasal Cannula 12/31/16 20:27 97.6 50 19 111/60 98 Nasal Cannula 12/31/16 16:00 97.5 75 18 119/65 98 Nasal Cannula 2.0 Laboratory Tests Test 01/01/17 05:45 White Blood Count 9.8 K/UL (4.8-10.8) Red Blood Count 4.05 M/UL (4.20-5.40) L Hemoglobin 12.2 G/DL (12.0-16.0) Hematocrit 38.0 % (37.0-47.0) Mean Corpuscular Volume 94 FL (80-99) Mean Corpuscular Hemoglobin 30.1 PG (27.0-31.0) Mean Corpuscular Hemoglobin Concent 32.1 G/DL (32.0-36.0) Red Cell Distribution Width 15.1 % (11.6-14.8) H Platelet Count 332 K/UL (150-450) Mean Platelet Volume 7.1 FL (6.5-10.1) Neutrophils (%) (Auto) 59.5 % (45.0-75.0) Lymphocytes (%) (Auto) 26.6 % (20.0-45.0) Monocytes (%) (Auto) 6.0 % (1.0-10.0) Eosinophils (%) (Auto) 6.1 % (0.0-3.0) H Basophils (%) (Auto) 1.8 % (0.0-2.0) Sodium Level 141 MMOL/L (136-145) Potassium Level 4.2 MMOL/L (3.5-5.1) Chloride Level 104 MMOL/L (98-107) Carbon Dioxide Level 30 MMOL/L (21-32) Anion Gap 7 mmol/L (5-15) Blood Urea Nitrogen 13 mg/dL (7-18) Creatinine 0.4 MG/DL (0.55-1.30) L Estimat Glomerular Filtration Rate > 60 mL/min (>60) Glucose Level 79 MG/DL (74-106) Calcium Level 9.8 MG/DL (8.5-10.1) Height (Feet): 5 Height (Inches): 7.00 Weight (Pounds): 126 General Appearance: no apparent distress, alert, thin Cardiovascular: normal rate Respiratory/Chest: normal breath sounds, no respiratory distress Abdominal Exam: normal bowel sounds, non tender, soft Shruti Roberson N.P. Jan 01, 2017 15:37
--- NOTE | 2017-01-01 15:37 | GI Progress Note ---
Assessment/Plan Problems: (1) PEG (percutaneous endoscopic gastrostomy) adjustment/replacement/removal ICD Codes: Z43.1 - Encounter for attention to gastrostomy SNOMED: 535782569, 584679715 (2) Chronic pain ICD Codes: G89.29 - Other chronic pain SNOMED: 16282116 (3) Diabetes mellitus ICD Codes: E11.9 - Type 2 diabetes mellitus without complications SNOMED: 73093944 (4) Hypothyroidism ICD Codes: E03.9 - Hypothyroidism, unspecified SNOMED: 67260780 Status: stable, unchanged Status Narrative Discussed with Dr. Mesa. Assessment/Plan okay for DC per GI standpoint cdiff negative s/p GT removal GT site care daily/prn soft diet, push PO fu labs fu Hep C antibody Subjective Subjective hungry, tolerating diet Objective Last 24 Hour Vital Signs Date Time Temp Pulse Resp B/P (MAP) Pulse Ox O2 Delivery O2 Flow Rate FiO2 01/01/17 12:43 98.0 56 20 110/65 99 Room Air 01/01/17 09:00 53 01/01/17 08:28 97.9 53 20 107/61 99 Room Air 01/01/17 07:51 Nasal Cannula 2.0 28 01/01/17 07:50 99 Nasal Cannula 2.0 28 01/01/17 05:57 97.1 01/01/17 03:46 97.1 54 19 95/53 98 Nasal Cannula 01/01/17 00:22 97.7 71 19 137/76 98 Nasal Cannula 12/31/16 20:27 97.6 50 19 111/60 98 Nasal Cannula 12/31/16 16:00 97.5 75 18 119/65 98 Nasal Cannula 2.0 Laboratory Tests Test 01/01/17 05:45 White Blood Count 9.8 K/UL (4.8-10.8) Red Blood Count 4.05 M/UL (4.20-5.40) L Hemoglobin 12.2 G/DL (12.0-16.0) Hematocrit 38.0 % (37.0-47.0) Mean Corpuscular Volume 94 FL (80-99) Mean Corpuscular Hemoglobin 30.1 PG (27.0-31.0) Mean Corpuscular Hemoglobin Concent 32.1 G/DL (32.0-36.0) Red Cell Distribution Width 15.1 % (11.6-14.8) H Platelet Count 332 K/UL (150-450) Mean Platelet Volume 7.1 FL (6.5-10.1) Neutrophils (%) (Auto) 59.5 % (45.0-75.0) Lymphocytes (%) (Auto) 26.6 % (20.0-45.0) Monocytes (%) (Auto) 6.0 % (1.0-10.0) Eosinophils (%) (Auto) 6.1 % (0.0-3.0) H Basophils (%) (Auto) 1.8 % (0.0-2.0) Sodium Level 141 MMOL/L (136-145) Potassium Level 4.2 MMOL/L (3.5-5.1) Chloride Level 104 MMOL/L (98-107) Carbon Dioxide Level 30 MMOL/L (21-32) Anion Gap 7 mmol/L (5-15) Blood Urea Nitrogen 13 mg/dL (7-18) Creatinine 0.4 MG/DL (0.55-1.30) L Estimat Glomerular Filtration Rate > 60 mL/min (>60) Glucose Level 79 MG/DL (74-106) Calcium Level 9.8 MG/DL (8.5-10.1) Height (Feet): 5 Height (Inches): 7.00 Weight (Pounds): 126 General Appearance: no apparent distress, alert, thin Cardiovascular: normal rate Respiratory/Chest: normal breath sounds, no respiratory distress Abdominal Exam: normal bowel sounds, non tender, soft Shruti Roberson N.P. Jan 01, 2017 15:37
--- NOTE | 2017-01-01 15:37 | GI Progress Note ---
Assessment/Plan Problems: (1) PEG (percutaneous endoscopic gastrostomy) adjustment/replacement/removal ICD Codes: Z43.1 - Encounter for attention to gastrostomy SNOMED: 797519952, 372813291 (2) Chronic pain ICD Codes: G89.29 - Other chronic pain SNOMED: 96787103 (3) Diabetes mellitus ICD Codes: E11.9 - Type 2 diabetes mellitus without complications SNOMED: 45881215 (4) Hypothyroidism ICD Codes: E03.9 - Hypothyroidism, unspecified SNOMED: 85587020 Status: stable, unchanged Status Narrative Discussed with Dr. Mesa. Assessment/Plan okay for DC per GI standpoint cdiff negative s/p GT removal GT site care daily/prn soft diet, push PO fu labs fu Hep C antibody Subjective Subjective hungry, tolerating diet Objective Last 24 Hour Vital Signs Date Time Temp Pulse Resp B/P (MAP) Pulse Ox O2 Delivery O2 Flow Rate FiO2 01/01/17 12:43 98.0 56 20 110/65 99 Room Air 01/01/17 09:00 53 01/01/17 08:28 97.9 53 20 107/61 99 Room Air 01/01/17 07:51 Nasal Cannula 2.0 28 01/01/17 07:50 99 Nasal Cannula 2.0 28 01/01/17 05:57 97.1 01/01/17 03:46 97.1 54 19 95/53 98 Nasal Cannula 01/01/17 00:22 97.7 71 19 137/76 98 Nasal Cannula 12/31/16 20:27 97.6 50 19 111/60 98 Nasal Cannula 12/31/16 16:00 97.5 75 18 119/65 98 Nasal Cannula 2.0 Laboratory Tests Test 01/01/17 05:45 White Blood Count 9.8 K/UL (4.8-10.8) Red Blood Count 4.05 M/UL (4.20-5.40) L Hemoglobin 12.2 G/DL (12.0-16.0) Hematocrit 38.0 % (37.0-47.0) Mean Corpuscular Volume 94 FL (80-99) Mean Corpuscular Hemoglobin 30.1 PG (27.0-31.0) Mean Corpuscular Hemoglobin Concent 32.1 G/DL (32.0-36.0) Red Cell Distribution Width 15.1 % (11.6-14.8) H Platelet Count 332 K/UL (150-450) Mean Platelet Volume 7.1 FL (6.5-10.1) Neutrophils (%) (Auto) 59.5 % (45.0-75.0) Lymphocytes (%) (Auto) 26.6 % (20.0-45.0) Monocytes (%) (Auto) 6.0 % (1.0-10.0) Eosinophils (%) (Auto) 6.1 % (0.0-3.0) H Basophils (%) (Auto) 1.8 % (0.0-2.0) Sodium Level 141 MMOL/L (136-145) Potassium Level 4.2 MMOL/L (3.5-5.1) Chloride Level 104 MMOL/L (98-107) Carbon Dioxide Level 30 MMOL/L (21-32) Anion Gap 7 mmol/L (5-15) Blood Urea Nitrogen 13 mg/dL (7-18) Creatinine 0.4 MG/DL (0.55-1.30) L Estimat Glomerular Filtration Rate > 60 mL/min (>60) Glucose Level 79 MG/DL (74-106) Calcium Level 9.8 MG/DL (8.5-10.1) Height (Feet): 5 Height (Inches): 7.00 Weight (Pounds): 126 General Appearance: no apparent distress, alert, thin Cardiovascular: normal rate Respiratory/Chest: normal breath sounds, no respiratory distress Abdominal Exam: normal bowel sounds, non tender, soft Shruti Roberson N.P. Jan 01, 2017 15:37
[2017-01-01 16:10] VITALS: BP 98/51
--- NOTE | 2017-01-01 16:34 | General Progress Note ---
Assessment/Plan Status: stable Assessment/Plan mdd cont current meds provided ro/st Subjective Constitutional: Reports: malaise, weakness Neurologic/Psychiatric: Reports: anxiety, depressed, emotional problems Allergies: Coded Allergies: ACETAMINOPHEN (Unverified Allergy, Unknown, 12/17/16) CODEINE (Unverified Allergy, Unknown, 03/04/14) IODINE (Unverified Allergy, Unknown, 12/17/16) Subjective pt is calm c/o long hospitalization Objective Last 24 Hour Vital Signs Date Time Temp Pulse Resp B/P (MAP) Pulse Ox O2 Delivery O2 Flow Rate FiO2 01/01/17 16:10 98.6 52 20 98/51 99 Nasal Cannula 2.0 01/01/17 12:43 98.0 56 20 110/65 99 Room Air 01/01/17 09:00 53 01/01/17 08:28 97.9 53 20 107/61 99 Room Air 01/01/17 07:51 Nasal Cannula 2.0 28 01/01/17 07:50 99 Nasal Cannula 2.0 28 01/01/17 05:57 97.1 01/01/17 03:46 97.1 54 19 95/53 98 Nasal Cannula 01/01/17 00:22 97.7 71 19 137/76 98 Nasal Cannula 12/31/16 20:27 97.6 50 19 111/60 98 Nasal Cannula Laboratory Tests 01/01/17 05:45: White Blood Count 9.8, Red Blood Count 4.05L, Hemoglobin 12.2, Hematocrit 38.0, Mean Corpuscular Volume 94, Mean Corpuscular Hemoglobin 30.1, Mean Corpuscular Hemoglobin Concent 32.1, Red Cell Distribution Width 15.1H, Platelet Count 332, Mean Platelet Volume 7.1, Neutrophils (%) (Auto) 59.5, Lymphocytes (%) (Auto) 26.6, Monocytes (%) (Auto) 6.0, Eosinophils (%) (Auto) 6.1H, Basophils (%) (Auto ) 1.8, Sodium Level 141, Potassium Level 4.2, Chloride Level 104, Carbon Dioxide Level 30, Anion Gap 7, Blood Urea Nitrogen 13, Creatinine 0.4L, Estimat Glomerular Filtration Rate > 60, Glucose Level 79, Calcium Level 9.8 Height (Feet): 5 Height (Inches): 7.00 Weight (Pounds): 126 General Appearance: no apparent distress, alert, overweight Neurologic: alert, oriented x 3, responsive, depressed affect Kallie Fernandez M.D. Jan 01, 2017 16:34
[2017-01-01 20:00] VITALS: BP 105/55
[2017-01-01] MEDS: Dyna-Hex 2% Top Sol 2oz TOPIC SCH (20:35)
--- NOTE | 2017-01-01 22:21 | Pulmonology Progress Note ---
Assessment/Plan Problems: (1) Purulent bronchitis (2) Acute and chronic respiratory failure ([id number]) (3) Tracheostomy malfunction (4) COPD (chronic obstructive pulmonary disease) (5) Interstitial lung disease (6) Diabetes mellitus (7) Hypothyroidism Assessment/Plan symptomatic treatment tolerating off trach, respiratory treatment check sputum psych evaluation all notes reviewed awaiting discharge Subjective ROS Limited/Unobtainable: No Constitutional: Reports: no symptoms HEENT: Repors: no symptoms Allergies: Coded Allergies: ACETAMINOPHEN (Unverified Allergy, Unknown, 12/17/16) CODEINE (Unverified Allergy, Unknown, 03/04/14) IODINE (Unverified Allergy, Unknown, 12/17/16) Objective Last 24 Hour Vital Signs Date Time Temp Pulse Resp B/P (MAP) Pulse Ox O2 Delivery O2 Flow Rate FiO2 01/01/17 21:05 98.2 01/01/17 20:05 98 Nasal Cannula 2.0 28 01/01/17 20:05 Nasal Cannula 2.0 28 01/01/17 20:00 98.2 53 20 105/55 98 Room Air 01/01/17 16:10 98.6 52 20 98/51 99 Nasal Cannula 2.0 01/01/17 12:43 98.0 56 20 110/65 99 Room Air 01/01/17 09:00 53 01/01/17 08:28 97.9 53 20 107/61 99 Room Air 01/01/17 07:51 Nasal Cannula 2.0 28 01/01/17 07:50 99 Nasal Cannula 2.0 28 01/01/17 03:46 97.1 54 19 95/53 98 Nasal Cannula 01/01/17 00:22 97.7 71 19 137/76 98 Nasal Cannula Intake and Output 01/01/17 01/02/17 19:00 07:00 Intake Total 650 ml Output Total 400 ml Balance 250 ml Intake Oral 650 ml Output Urine Total 400 ml Objective General Appearance: no acute distress, cachetic HEENT: normocephalic, atraumatic Respiratory/Chest: chest wall non-tender, lungs clear, normal breath sounds Cardiovascular: normal peripheral pulses, normal rate Abdomen: normal bowel sounds, soft, non tender Genitourinary: normal external genitalia Extremities: no cyanosis Skin: no rash Laboratory Tests 01/01/17 05:45: White Blood Count 9.8, Red Blood Count 4.05L, Hemoglobin 12.2, Hematocrit 38.0, Mean Corpuscular Volume 94, Mean Corpuscular Hemoglobin 30.1, Mean Corpuscular Hemoglobin Concent 32.1, Red Cell Distribution Width 15.1H, Platelet Count 332, Mean Platelet Volume 7.1, Neutrophils (%) (Auto) 59.5, Lymphocytes (%) (Auto) 26.6, Monocytes (%) (Auto) 6.0, Eosinophils (%) (Auto) 6.1H, Basophils (%) (Auto ) 1.8, Sodium Level 141, Potassium Level 4.2, Chloride Level 104, Carbon Dioxide Level 30, Anion Gap 7, Blood Urea Nitrogen 13, Creatinine 0.4L, Estimat Glomerular Filtration Rate > 60, Glucose Level 79, Calcium Level 9.8 Current Medications Medications (Trade) Dose Ordered Sig/Sandra Route PRN Reason Start Time Stop Time Status Last Admin Dose Admin Al Hydroxide/Mg Hydroxide (Mylanta II) 30 ml Q6H PRN GT dyspepsia 12/22/16 12:00 01/16/17 11:59 12/27/16 21:50 Chlorhexidine Gluconate ([place]-Hex 2%) 1 applic DAILY@2000 TOPIC 12/23/16 20:00 01/22/17 19:59 01/01/17 20:35 Dextrose (Dextrose 50%) STAT PRN IV Hypoglycemia 12/22/16 12:00 01/19/17 11:59 Digoxin (Lanoxin) 0.25 mg DAILY GT 12/23/16 09:00 01/17/17 09:29 12/31/16 09:16 Gabapentin (Neurontin) 300 mg TID GT 12/22/16 13:00 01/18/17 13:59 01/01/17 17:47 Heparin Sodium (Porcine) (Heparin 5000 units/ml) 5,000 units EVERY 12 HOURS SUBQ 12/22/16 21:00 01/17/17 08:59 01/01/17 20:41 Hydroxyzine HCl (Atarax) 25 mg BID GT 12/22/16 18:00 01/17/17 08:59 01/01/17 17:47 Insulin Aspart (NovoLOG) AC+HS SUBQ 12/30/16 21:00 01/17/17 17:59 01/01/17 12:38 Ketorolac Tromethamine (Toradol 30mg) 15 mg Q6H PRN IV For Pain 12/28/16 14:00 01/02/17 13:59 01/01/17 20:35 Levothyroxine Sodium (Synthroid) 88 mcg ACBREAKFAST GT 12/29/16 06:30 01/28/17 06:29 01/01/17 05:27 Mirtazapine (Remeron) 15 mg BEDTIME GT 12/26/16 21:00 01/25/17 20:59 01/01/17 20:35 Nitroglycerin (Ntg) 0.4 mg Q5MIN X 3 DOSES PRN SL Prn Chest Pain 12/22/16 12:00 01/18/17 17:19 Ondansetron HCl (Zofran) 4 mg Q6H PRN IVP Nausea & Vomiting 12/22/16 12:00 01/16/17 11:59 Pioglitazone HCl (Actos) 15 mg DAILY GT 12/23/16 09:00 01/17/17 09:29 01/01/17 09:27 Polyethylene Glycol (Miralax) 17 gm DAILYPRN PRN ORAL Constipation 12/22/16 12:00 01/19/17 11:59 DEDRICK SOLANO Jan 01, 2017 22:21
[2017-01-02] VITALS: BP 107/75
[2017-01-02 04:45] VITALS: BP 100/51
[2017-01-02] MEDS: Ketorolac 30mg Inj IV PRN ×2 (05:46→21:47)
[2017-01-02] MEDS: NovoLOG Insulin Flexpen SUBQ SCH ×4 (06:30→21:51)
[2017-01-02 07:49] LABS: ANION GAP 7 mmol/L (5-15); BLOOD UREA NITROGEN 14 mg/dL (7-18); CALCIUM 9.4 MG/DL (8.5-10.1); CARBON DIOXIDE 30 MMOL/L (21-32); CHLORIDE 105 MMOL/L (98-107); CREATININE 0.6 MG/DL (0.55-1.30); SODIUM 142 MMOL/L (136-145)
[2017-01-02 07:51] LABS: BASOPHILS % (AUTO) 2.1 % (0.0-2.0); HEMATOCRIT 40.9 % (37.0-47.0); HEMOGLOBIN 12.9 G/DL (12.0-16.0); LYMPHOCYTES % (AUTO) 42.8 % (20.0-45.0); MEAN CORPUSCULAR VOLUME 95 FL (80-99); MONOCYTES % (AUTO) 6.7 % (1.0-10.0); NEUTROPHILS % (AUTO) 40.3 % (45.0-75.0); PLATELET COUNT 325 K/UL (150-450); RED BLOOD COUNT 4.31 M/UL (4.20-5.40); RED CELL DISTRIBUTION WIDTH 15.2 % (11.6-14.8); WHITE BLOOD COUNT 8.5 K/UL (4.8-10.8)
[2017-01-02 08:37] VITALS: BP 100/65
[2017-01-02] MEDS: Gabapentin 300 MG/6 ML Soln GT SCH ×3 (09:03→17:22)
[2017-01-02] MEDS: HydrOXYzine 25mg tab GT SCH ×2 (09:03→17:24)
[2017-01-02] MEDS: Heparin 5000 units/ml inj SUBQ SCH ×2 (09:11→21:50)
[2017-01-02 12:24] VITALS: BP 101/51
[2017-01-02 16:12] VITALS: BP 105/50
--- NOTE | 2017-01-02 18:58 | GI Progress Note ---
Assessment/Plan Problems: (1) PEG (percutaneous endoscopic gastrostomy) adjustment/replacement/removal ICD Codes: Z43.1 - Encounter for attention to gastrostomy SNOMED: 116265088, 510342672 (2) Chronic pain ICD Codes: G89.29 - Other chronic pain SNOMED: 79740725 (3) Diabetes mellitus ICD Codes: E11.9 - Type 2 diabetes mellitus without complications SNOMED: 80504460 (4) Hypothyroidism ICD Codes: E03.9 - Hypothyroidism, unspecified SNOMED: 15866226 Status: stable Status Narrative Discussed with Dr. Mesa. Assessment/Plan okay for DC per GI standpoint cdiff negative s/p GT removal GT site care daily/prn soft diet, push PO fu labs fu Hep C antibody The patient was seen and examined at bedside and all new and available data was reviewed in the patients chart. I agree with the above findings, impression and plan. (Patient seen earlier today. Signature stamp does not reflect patient encounter time.). - Patrick Mesa MD Subjective Subjective hungry, tolerating diet Objective Last 24 Hour Vital Signs Date Time Temp Pulse Resp B/P (MAP) Pulse Ox O2 Delivery O2 Flow Rate FiO2 01/02/17 16:12 98.2 58 18 105/50 98 Nasal Cannula 3.0 01/02/17 12:24 97.8 64 18 101/51 99 Nasal Cannula 3.0 01/02/17 09:02 61 01/02/17 08:37 97.7 61 18 100/65 98 Nasal Cannula 2.0 01/02/17 08:22 Nasal Cannula 2.0 28 01/02/17 08:22 98 Nasal Cannula 2.0 28 01/02/17 06:16 97.0 01/02/17 04:45 97.0 60 18 100/51 99 Room Air 01/02/17 00:00 97.9 96 18 107/75 96 01/01/17 20:05 98 Nasal Cannula 2.0 28 01/01/17 20:05 Nasal Cannula 2.0 28 01/01/17 20:00 98.2 53 20 105/55 98 Room Air Intake and Output 01/02/17 01/03/17 19:00 07:00 Intake Total 720 ml Output Total 600 ml Balance 120 ml Intake Oral 720 ml Output Urine Total 600 ml Laboratory Tests Test 01/02/17 05:30 White Blood Count 8.5 K/UL (4.8-10.8) Red Blood Count 4.31 M/UL (4.20-5.40) Hemoglobin 12.9 G/DL (12.0-16.0) Hematocrit 40.9 % (37.0-47.0) Mean Corpuscular Volume 95 FL (80-99) Mean Corpuscular Hemoglobin 29.9 PG (27.0-31.0) Mean Corpuscular Hemoglobin Concent 31.5 G/DL (32.0-36.0) L Red Cell Distribution Width 15.2 % (11.6-14.8) H Platelet Count 325 K/UL (150-450) Mean Platelet Volume 8.0 FL (6.5-10.1) Neutrophils (%) (Auto) 40.3 % (45.0-75.0) L Lymphocytes (%) (Auto) 42.8 % (20.0-45.0) Monocytes (%) (Auto) 6.7 % (1.0-10.0) Eosinophils (%) (Auto) 8.0 % (0.0-3.0) H Basophils (%) (Auto) 2.1 % (0.0-2.0) H Sodium Level 142 MMOL/L (136-145) Potassium Level 4.0 MMOL/L (3.5-5.1) Chloride Level 105 MMOL/L (98-107) Carbon Dioxide Level 30 MMOL/L (21-32) Anion Gap 7 mmol/L (5-15) Blood Urea Nitrogen 14 mg/dL (7-18) Creatinine 0.6 MG/DL (0.55-1.30) Estimat Glomerular Filtration Rate > 60 mL/min (>60) Glucose Level 121 MG/DL (74-106) H Calcium Level 9.4 MG/DL (8.5-10.1) Height (Feet): 5 Height (Inches): 7.00 Weight (Pounds): 126 General Appearance: WD/WN, no apparent distress, alert Cardiovascular: normal rate Respiratory/Chest: normal breath sounds, no respiratory distress Abdominal Exam: normal bowel sounds, non tender, soft, GT site - healing well Extremities: normal range of motion, non-tender Shruti Roberson N.PChrissy Jan 02, 2017 18:58 DIAZ MESA Jan 04, 2017 09:49
--- NOTE | 2017-01-02 18:58 | GI Progress Note ---
Assessment/Plan Problems: (1) PEG (percutaneous endoscopic gastrostomy) adjustment/replacement/removal ICD Codes: Z43.1 - Encounter for attention to gastrostomy SNOMED: 394828226, 322968439 (2) Chronic pain ICD Codes: G89.29 - Other chronic pain SNOMED: 27688816 (3) Diabetes mellitus ICD Codes: E11.9 - Type 2 diabetes mellitus without complications SNOMED: 95268391 (4) Hypothyroidism ICD Codes: E03.9 - Hypothyroidism, unspecified SNOMED: 30011197 Status: stable Status Narrative Discussed with Dr. Mesa. Assessment/Plan okay for DC per GI standpoint cdiff negative s/p GT removal GT site care daily/prn soft diet, push PO fu labs fu Hep C antibody The patient was seen and examined at bedside and all new and available data was reviewed in the patients chart. I agree with the above findings, impression and plan. (Patient seen earlier today. Signature stamp does not reflect patient encounter time.). - Patrick Mesa MD Subjective Subjective hungry, tolerating diet Objective Last 24 Hour Vital Signs Date Time Temp Pulse Resp B/P (MAP) Pulse Ox O2 Delivery O2 Flow Rate FiO2 01/02/17 16:12 98.2 58 18 105/50 98 Nasal Cannula 3.0 01/02/17 12:24 97.8 64 18 101/51 99 Nasal Cannula 3.0 01/02/17 09:02 61 01/02/17 08:37 97.7 61 18 100/65 98 Nasal Cannula 2.0 01/02/17 08:22 Nasal Cannula 2.0 28 01/02/17 08:22 98 Nasal Cannula 2.0 28 01/02/17 06:16 97.0 01/02/17 04:45 97.0 60 18 100/51 99 Room Air 01/02/17 00:00 97.9 96 18 107/75 96 01/01/17 20:05 98 Nasal Cannula 2.0 28 01/01/17 20:05 Nasal Cannula 2.0 28 01/01/17 20:00 98.2 53 20 105/55 98 Room Air Intake and Output 01/02/17 01/03/17 19:00 07:00 Intake Total 720 ml Output Total 600 ml Balance 120 ml Intake Oral 720 ml Output Urine Total 600 ml Laboratory Tests Test 01/02/17 05:30 White Blood Count 8.5 K/UL (4.8-10.8) Red Blood Count 4.31 M/UL (4.20-5.40) Hemoglobin 12.9 G/DL (12.0-16.0) Hematocrit 40.9 % (37.0-47.0) Mean Corpuscular Volume 95 FL (80-99) Mean Corpuscular Hemoglobin 29.9 PG (27.0-31.0) Mean Corpuscular Hemoglobin Concent 31.5 G/DL (32.0-36.0) L Red Cell Distribution Width 15.2 % (11.6-14.8) H Platelet Count 325 K/UL (150-450) Mean Platelet Volume 8.0 FL (6.5-10.1) Neutrophils (%) (Auto) 40.3 % (45.0-75.0) L Lymphocytes (%) (Auto) 42.8 % (20.0-45.0) Monocytes (%) (Auto) 6.7 % (1.0-10.0) Eosinophils (%) (Auto) 8.0 % (0.0-3.0) H Basophils (%) (Auto) 2.1 % (0.0-2.0) H Sodium Level 142 MMOL/L (136-145) Potassium Level 4.0 MMOL/L (3.5-5.1) Chloride Level 105 MMOL/L (98-107) Carbon Dioxide Level 30 MMOL/L (21-32) Anion Gap 7 mmol/L (5-15) Blood Urea Nitrogen 14 mg/dL (7-18) Creatinine 0.6 MG/DL (0.55-1.30) Estimat Glomerular Filtration Rate > 60 mL/min (>60) Glucose Level 121 MG/DL (74-106) H Calcium Level 9.4 MG/DL (8.5-10.1) Height (Feet): 5 Height (Inches): 7.00 Weight (Pounds): 126 General Appearance: WD/WN, no apparent distress, alert Cardiovascular: normal rate Respiratory/Chest: normal breath sounds, no respiratory distress Abdominal Exam: normal bowel sounds, non tender, soft, GT site - healing well Extremities: normal range of motion, non-tender Shruti Roberson N.PChrissy Jan 02, 2017 18:58 DIAZ MESA Jan 04, 2017 09:49
--- NOTE | 2017-01-02 18:58 | GI Progress Note ---
Assessment/Plan Problems: (1) PEG (percutaneous endoscopic gastrostomy) adjustment/replacement/removal ICD Codes: Z43.1 - Encounter for attention to gastrostomy SNOMED: 908612828, [id number] (2) Chronic pain ICD Codes: G89.29 - Other chronic pain SNOMED: 59494895 (3) Diabetes mellitus ICD Codes: E11.9 - Type 2 diabetes mellitus without complications SNOMED: 52658533 (4) Hypothyroidism ICD Codes: E03.9 - Hypothyroidism, unspecified SNOMED: 16166026 Status: stable Status Narrative Discussed with Dr. Mesa. Assessment/Plan okay for DC per GI standpoint cdiff negative s/p GT removal GT site care daily/prn soft diet, push PO fu labs fu Hep C antibody The patient was seen and examined at bedside and all new and available data was reviewed in the patients chart. I agree with the above findings, impression and plan. (Patient seen earlier today. Signature stamp does not reflect patient encounter time.). - Patrick Mesa MD Subjective Subjective hungry, tolerating diet Objective Last 24 Hour Vital Signs Date Time Temp Pulse Resp B/P (MAP) Pulse Ox O2 Delivery O2 Flow Rate FiO2 01/02/17 16:12 98.2 58 18 105/50 98 Nasal Cannula 3.0 01/02/17 12:24 97.8 64 18 101/51 99 Nasal Cannula 3.0 01/02/17 09:02 61 01/02/17 08:37 97.7 61 18 100/65 98 Nasal Cannula 2.0 01/02/17 08:22 Nasal Cannula 2.0 28 01/02/17 08:22 98 Nasal Cannula 2.0 28 01/02/17 06:16 97.0 01/02/17 04:45 97.0 60 18 100/51 99 Room Air 01/02/17 00:00 97.9 96 18 107/75 96 01/01/17 20:05 98 Nasal Cannula 2.0 28 01/01/17 20:05 Nasal Cannula 2.0 28 01/01/17 20:00 98.2 53 20 105/55 98 Room Air Intake and Output 01/02/17 01/03/17 19:00 07:00 Intake Total 720 ml Output Total 600 ml Balance 120 ml Intake Oral 720 ml Output Urine Total 600 ml Laboratory Tests Test 01/02/17 05:30 White Blood Count 8.5 K/UL (4.8-10.8) Red Blood Count 4.31 M/UL (4.20-5.40) Hemoglobin 12.9 G/DL (12.0-16.0) Hematocrit 40.9 % (37.0-47.0) Mean Corpuscular Volume 95 FL (80-99) Mean Corpuscular Hemoglobin 29.9 PG (27.0-31.0) Mean Corpuscular Hemoglobin Concent 31.5 G/DL (32.0-36.0) L Red Cell Distribution Width 15.2 % (11.6-14.8) H Platelet Count 325 K/UL (150-450) Mean Platelet Volume 8.0 FL (6.5-10.1) Neutrophils (%) (Auto) 40.3 % (45.0-75.0) L Lymphocytes (%) (Auto) 42.8 % (20.0-45.0) Monocytes (%) (Auto) 6.7 % (1.0-10.0) Eosinophils (%) (Auto) 8.0 % (0.0-3.0) H Basophils (%) (Auto) 2.1 % (0.0-2.0) H Sodium Level 142 MMOL/L (136-145) Potassium Level 4.0 MMOL/L (3.5-5.1) Chloride Level 105 MMOL/L (98-107) Carbon Dioxide Level 30 MMOL/L (21-32) Anion Gap 7 mmol/L (5-15) Blood Urea Nitrogen 14 mg/dL (7-18) Creatinine 0.6 MG/DL (0.55-1.30) Estimat Glomerular Filtration Rate > 60 mL/min (>60) Glucose Level 121 MG/DL (74-106) H Calcium Level 9.4 MG/DL (8.5-10.1) Height (Feet): 5 Height (Inches): 7.00 Weight (Pounds): 126 General Appearance: WD/WN, no apparent distress, alert Cardiovascular: normal rate Respiratory/Chest: normal breath sounds, no respiratory distress Abdominal Exam: normal bowel sounds, non tender, soft, GT site - healing well Extremities: normal range of motion, non-tender Shruti Roberson N.PChrissy Jan 02, 2017 18:58 DIAZ MESA Jan 04, 2017 09:49
[2017-01-02 19:49] VITALS: BP 94/53
[2017-01-02] MEDS: Dyna-Hex 2% Top Sol 2oz TOPIC SCH (21:46)
--- NOTE | 2017-01-02 22:39 | General Progress Note ---
Progress Note Progress Note pt doesn't have any trach or PEG any more. she eats by mouth and is on room air. DEDRICK SOLANO Jan 02, 2017 22:39
--- NOTE | 2017-01-02 22:39 | Pulmonology Progress Note ---
Assessment/Plan Problems: (1) Purulent bronchitis (2) Acute and chronic respiratory failure ([id number]) (3) Tracheostomy malfunction (4) COPD (chronic obstructive pulmonary disease) (5) Interstitial lung disease (6) Diabetes mellitus (7) Hypothyroidism Assessment/Plan symptomatic treatment tolerating off trach, respiratory treatment check sputum psych evaluation all notes reviewed awaiting discharge Subjective ROS Limited/Unobtainable: No Constitutional: Reports: no symptoms HEENT: Repors: no symptoms Respiratory: Reports: no symptoms Allergies: Coded Allergies: ACETAMINOPHEN (Unverified Allergy, Unknown, 12/17/16) CODEINE (Unverified Allergy, Unknown, 03/04/14) IODINE (Unverified Allergy, Unknown, 12/17/16) Objective Last 24 Hour Vital Signs Date Time Temp Pulse Resp B/P (MAP) Pulse Ox O2 Delivery O2 Flow Rate FiO2 01/02/17 22:17 96.8 01/02/17 19:49 96.8 58 18 94/53 92 Nasal Cannula 2.0 01/02/17 16:12 98.2 58 18 105/50 98 Nasal Cannula 3.0 01/02/17 12:24 97.8 64 18 101/51 99 Nasal Cannula 3.0 01/02/17 09:02 61 01/02/17 08:37 97.7 61 18 100/65 98 Nasal Cannula 2.0 01/02/17 08:22 Nasal Cannula 2.0 28 01/02/17 08:22 98 Nasal Cannula 2.0 28 01/02/17 06:16 97.0 01/02/17 04:45 97.0 60 18 100/51 99 Room Air 01/02/17 00:00 97.9 96 18 107/75 96 Intake and Output 01/02/17 01/03/17 19:00 07:00 Intake Total 720 ml Output Total 600 ml Balance 120 ml Intake Oral 720 ml Output Urine Total 600 ml Objective General Appearance: no acute distress, cachetic HEENT: normocephalic, atraumatic Respiratory/Chest: chest wall non-tender, lungs clear, normal breath sounds Cardiovascular: normal peripheral pulses, normal rate Abdomen: normal bowel sounds, soft, non tender Genitourinary: normal external genitalia Extremities: no cyanosis Skin: no rash Laboratory Tests 01/02/17 05:30: White Blood Count 8.5, Red Blood Count 4.31, Hemoglobin 12.9, Hematocrit 40.9, Mean Corpuscular Volume 95, Mean Corpuscular Hemoglobin 29.9, Mean Corpuscular Hemoglobin Concent 31.5L, Red Cell Distribution Width 15.2H, Platelet Count 325 , Mean Platelet Volume 8.0, Neutrophils (%) (Auto) 40.3L, Lymphocytes (%) (Auto ) 42.8, Monocytes (%) (Auto) 6.7, Eosinophils (%) (Auto) 8.0H, Basophils (%) ( Auto) 2.1H, Sodium Level 142, Potassium Level 4.0, Chloride Level 105, Carbon Dioxide Level 30, Anion Gap 7, Blood Urea Nitrogen 14, Creatinine 0.6, Estimat Glomerular Filtration Rate > 60, Glucose Level 121H, Calcium Level 9.4 Current Medications Medications (Trade) Dose Ordered Sig/Sandra Route PRN Reason Start Time Stop Time Status Last Admin Dose Admin Al Hydroxide/Mg Hydroxide (Mylanta II) 30 ml Q6H PRN GT dyspepsia 12/22/16 12:00 01/16/17 11:59 12/27/16 21:50 Chlorhexidine Gluconate (Chioma-Hex 2%) 1 applic DAILY@2000 TOPIC 12/23/16 20:00 01/22/17 19:59 01/02/17 21:46 Dextrose (Dextrose 50%) STAT PRN IV Hypoglycemia 12/22/16 12:00 01/19/17 11:59 Digoxin (Lanoxin) 0.25 mg DAILY GT 12/23/16 09:00 01/17/17 09:29 01/02/17 09:02 Gabapentin (Neurontin) 300 mg TID GT 12/22/16 13:00 01/18/17 13:59 01/02/17 17:22 Heparin Sodium (Porcine) (Heparin 5000 units/ml) 5,000 units EVERY 12 HOURS SUBQ 12/22/16 21:00 01/17/17 08:59 01/02/17 21:50 Hydroxyzine HCl (Atarax) 25 mg BID GT 12/22/16 18:00 01/17/17 08:59 01/02/17 17:24 Insulin Aspart (NovoLOG) AC+HS SUBQ 12/30/16 21:00 01/17/17 17:59 01/02/17 21:51 Ketorolac Tromethamine (Toradol 30mg) 15 mg Q6H PRN IV For Pain 01/02/17 21:00 01/07/17 20:59 01/02/17 21:47 Levothyroxine Sodium (Synthroid) 88 mcg ACBREAKFAST GT 12/29/16 06:30 01/28/17 06:29 01/02/17 05:46 Mirtazapine (Remeron) 15 mg BEDTIME GT 12/26/16 21:00 01/25/17 20:59 01/02/17 21:47 Nitroglycerin (Ntg) 0.4 mg Q5MIN X 3 DOSES PRN SL Prn Chest Pain 12/22/16 12:00 01/18/17 17:19 Ondansetron HCl (Zofran) 4 mg Q6H PRN IVP Nausea & Vomiting 12/22/16 12:00 01/16/17 11:59 Pioglitazone HCl (Actos) 15 mg DAILY GT 12/23/16 09:00 01/17/17 09:29 01/02/17 09:02 Polyethylene Glycol (Miralax) 17 gm DAILYPRN PRN ORAL Constipation 12/22/16 12:00 01/19/17 11:59 DEDRICK SOLANO Jan 02, 2017 22:39
--- NOTE | 2017-01-02 23:07 | General Progress Note ---
Assessment/Plan Assessment/Plan mdd cont current meds provided ro/st Subjective Date patient seen: Jan 02, 2017 Allergies: Coded Allergies: ACETAMINOPHEN (Unverified Allergy, Unknown, 12/17/16) CODEINE (Unverified Allergy, Unknown, 03/04/14) IODINE (Unverified Allergy, Unknown, 12/17/16) Subjective pt is calm c/o long hospitalization Objective Last 24 Hour Vital Signs Date Time Temp Pulse Resp B/P (MAP) Pulse Ox O2 Delivery O2 Flow Rate FiO2 01/02/17 22:17 96.8 01/02/17 19:49 96.8 58 18 94/53 92 Nasal Cannula 2.0 01/02/17 16:12 98.2 58 18 105/50 98 Nasal Cannula 3.0 01/02/17 12:24 97.8 64 18 101/51 99 Nasal Cannula 3.0 01/02/17 09:02 61 01/02/17 08:37 97.7 61 18 100/65 98 Nasal Cannula 2.0 01/02/17 08:22 Nasal Cannula 2.0 28 01/02/17 08:22 98 Nasal Cannula 2.0 28 01/02/17 06:16 97.0 01/02/17 04:45 97.0 60 18 100/51 99 Room Air 01/02/17 00:00 97.9 96 18 107/75 96 Intake and Output 01/02/17 01/03/17 19:00 07:00 Intake Total 720 ml Output Total 600 ml Balance 120 ml Intake Oral 720 ml Output Urine Total 600 ml Laboratory Tests 01/02/17 05:30: White Blood Count 8.5, Red Blood Count 4.31, Hemoglobin 12.9, Hematocrit 40.9, Mean Corpuscular Volume 95, Mean Corpuscular Hemoglobin 29.9, Mean Corpuscular Hemoglobin Concent 31.5L, Red Cell Distribution Width 15.2H, Platelet Count 325 , Mean Platelet Volume 8.0, Neutrophils (%) (Auto) 40.3L, Lymphocytes (%) (Auto ) 42.8, Monocytes (%) (Auto) 6.7, Eosinophils (%) (Auto) 8.0H, Basophils (%) ( Auto) 2.1H, Sodium Level 142, Potassium Level 4.0, Chloride Level 105, Carbon Dioxide Level 30, Anion Gap 7, Blood Urea Nitrogen 14, Creatinine 0.6, Estimat Glomerular Filtration Rate > 60, Glucose Level 121H, Calcium Level 9.4 Height (Feet): 5 Height (Inches): 7.00 Weight (Pounds): 126 Kallie Fernandez M.D. Jan 02, 2017 23:07
--- NOTE | 2017-01-02 23:17 | Infectious Diseases Prog Note ---
Assessment/Plan Assessment/Plan Assessment: SOB- likely related to malpositioned trach +/- ?PNA- resolved Possible PNA, s/p Rx -CXR: Interstitial disease nonspecific. CHF, pneumonitis not excluded -spu cx ordered, not collected Leukocytosis- ?reactive vs 2ry to PNA vs combination- resolved -Bcx Neg -u/a WBC 2-4 Diarrhea- neg cdiff COPD and chronic tracheostomy- s/p trach decanulized 12/21 CHF, spinal fusion, DVT, s/p hip surgery, chronic pain, residential resident No ABX allergies Full Code Plan: -Continue to monitor off abx -s/p 5d IV Ceftriaxone/azithromycin 12/21 -s/p 1 d IV Vanco/Cefpime 12/18 -s/p 1d Levaquin 12/17 -f/u Hep C ab (per patient request) -Monitor CBC/BMP, temperatures -Aspiration precautions. Subjective Allergies: Coded Allergies: ACETAMINOPHEN (Unverified Allergy, Unknown, 12/17/16) CODEINE (Unverified Allergy, Unknown, 03/04/14) IODINE (Unverified Allergy, Unknown, 12/17/16) Subjective remains afebrile appears comfortable Objective Vital Signs Last 24 Hour Vital Signs Date Time Temp Pulse Resp B/P (MAP) Pulse Ox O2 Delivery O2 Flow Rate FiO2 01/02/17 22:17 96.8 01/02/17 19:49 96.8 58 18 94/53 92 Nasal Cannula 2.0 01/02/17 16:12 98.2 58 18 105/50 98 Nasal Cannula 3.0 01/02/17 12:24 97.8 64 18 101/51 99 Nasal Cannula 3.0 01/02/17 09:02 61 01/02/17 08:37 97.7 61 18 100/65 98 Nasal Cannula 2.0 01/02/17 08:22 Nasal Cannula 2.0 28 01/02/17 08:22 98 Nasal Cannula 2.0 28 01/02/17 06:16 97.0 01/02/17 04:45 97.0 60 18 100/51 99 Room Air 01/02/17 00:00 97.9 96 18 107/75 96 Height (Feet): 5 Height (Inches): 7.00 Weight (Pounds): 126 General Appearance: no acute distress Respiratory/Chest: no respiratory distress Cardiovascular: normal rate, regular rhythm Abdomen: normal bowel sounds, soft, non tender, non distended Laboratory Tests Test 01/02/17 05:30 White Blood Count 8.5 K/UL (4.8-10.8) Red Blood Count 4.31 M/UL (4.20-5.40) Hemoglobin 12.9 G/DL (12.0-16.0) Hematocrit 40.9 % (37.0-47.0) Mean Corpuscular Volume 95 FL (80-99) Mean Corpuscular Hemoglobin 29.9 PG (27.0-31.0) Mean Corpuscular Hemoglobin Concent 31.5 G/DL (32.0-36.0) L Red Cell Distribution Width 15.2 % (11.6-14.8) H Platelet Count 325 K/UL (150-450) Mean Platelet Volume 8.0 FL (6.5-10.1) Neutrophils (%) (Auto) 40.3 % (45.0-75.0) L Lymphocytes (%) (Auto) 42.8 % (20.0-45.0) Monocytes (%) (Auto) 6.7 % (1.0-10.0) Eosinophils (%) (Auto) 8.0 % (0.0-3.0) H Basophils (%) (Auto) 2.1 % (0.0-2.0) H Sodium Level 142 MMOL/L (136-145) Potassium Level 4.0 MMOL/L (3.5-5.1) Chloride Level 105 MMOL/L (98-107) Carbon Dioxide Level 30 MMOL/L (21-32) Anion Gap 7 mmol/L (5-15) Blood Urea Nitrogen 14 mg/dL (7-18) Creatinine 0.6 MG/DL (0.55-1.30) Estimat Glomerular Filtration Rate > 60 mL/min (>60) Glucose Level 121 MG/DL (74-106) H Calcium Level 9.4 MG/DL (8.5-10.1) Current Medications Medications (Trade) Dose Ordered Sig/Sandra Route PRN Reason Start Time Stop Time Status Last Admin Dose Admin Al Hydroxide/Mg Hydroxide (Mylanta II) 30 ml Q6H PRN GT dyspepsia 12/22/16 12:00 01/16/17 11:59 12/27/16 21:50 Chlorhexidine Gluconate (Chioma-Hex 2%) 1 applic DAILY@2000 TOPIC 12/23/16 20:00 01/22/17 19:59 01/02/17 21:46 Dextrose (Dextrose 50%) STAT PRN IV Hypoglycemia 12/22/16 12:00 01/19/17 11:59 Digoxin (Lanoxin) 0.25 mg DAILY GT 12/23/16 09:00 01/17/17 09:29 01/02/17 09:02 Gabapentin (Neurontin) 300 mg TID GT 12/22/16 13:00 01/18/17 13:59 01/02/17 17:22 Heparin Sodium (Porcine) (Heparin 5000 units/ml) 5,000 units EVERY 12 HOURS SUBQ 12/22/16 21:00 01/17/17 08:59 01/02/17 21:50 Hydroxyzine HCl (Atarax) 25 mg BID GT 12/22/16 18:00 01/17/17 08:59 01/02/17 17:24 Insulin Aspart (NovoLOG) AC+HS SUBQ 12/30/16 21:00 01/17/17 17:59 01/02/17 21:51 Ketorolac Tromethamine (Toradol 30mg) 15 mg Q6H PRN IV For Pain 01/02/17 21:00 01/07/17 20:59 01/02/17 21:47 Levothyroxine Sodium (Synthroid) 88 mcg ACBREAKFAST GT 12/29/16 06:30 01/28/17 06:29 01/02/17 05:46 Mirtazapine (Remeron) 15 mg BEDTIME GT 12/26/16 21:00 01/25/17 20:59 01/02/17 21:47 Nitroglycerin (Ntg) 0.4 mg Q5MIN X 3 DOSES PRN SL Prn Chest Pain 12/22/16 12:00 01/18/17 17:19 Ondansetron HCl (Zofran) 4 mg Q6H PRN IVP Nausea & Vomiting 12/22/16 12:00 01/16/17 11:59 Pioglitazone HCl (Actos) 15 mg DAILY GT 12/23/16 09:00 01/17/17 09:29 01/02/17 09:02 Polyethylene Glycol (Miralax) 17 gm DAILYPRN PRN ORAL Constipation 12/22/16 12:00 01/19/17 11:59 JESENIA JEFF Jan 02, 2017 23:17
[2017-01-03] VITALS: BP 99/56
[2017-01-03 04:00] VITALS: BP 100/50
[2017-01-03] MEDS: Ketorolac 30mg Inj IV PRN (06:19)
[2017-01-03] MEDS: NovoLOG Insulin Flexpen SUBQ SCH ×4 (06:30→20:46)
[2017-01-03 07:52] LABS: ANION GAP 7 mmol/L (5-15); BLOOD UREA NITROGEN 12 mg/dL (7-18); CALCIUM 9.5 MG/DL (8.5-10.1); CARBON DIOXIDE 30 MMOL/L (21-32); CHLORIDE 105 MMOL/L (98-107); CREATININE 0.5 MG/DL (0.55-1.30); POTASSIUM 4.5 MMOL/L (3.5-5.1); SODIUM 142 MMOL/L (136-145)
[2017-01-03 07:57] LABS: BASOPHILS % (AUTO) 1.7 % (0.0-2.0); EOSINOPHILS % (AUTO) 9.3 % (0.0-3.0); HEMATOCRIT 43.1 % (37.0-47.0); HEMOGLOBIN 13.3 G/DL (12.0-16.0); LYMPHOCYTES % (AUTO) 42.8 % (20.0-45.0); MEAN CORPUSCULAR VOLUME 95 FL (80-99); MONOCYTES % (AUTO) 5.3 % (1.0-10.0); NEUTROPHILS % (AUTO) 40.9 % (45.0-75.0); PLATELET COUNT 387 K/UL (150-450); RED BLOOD COUNT 4.54 M/UL (4.20-5.40); RED CELL DISTRIBUTION WIDTH 15.2 % (11.6-14.8); WHITE BLOOD COUNT 9.1 K/UL (4.8-10.8)
[2017-01-03 08:00] VITALS: BP 87/57
[2017-01-03] MEDS: Gabapentin 300 MG/6 ML Soln GT SCH ×3 (08:56→17:56)
[2017-01-03] MEDS: HydrOXYzine 25mg tab GT SCH ×2 (08:58→17:57)
--- NOTE | 2017-01-03 09:01 | Consultation ---
DATE OF CONSULTATION: 01/02/2017 NEPHROLOGY CONSULTATION CONSULTING PHYSICIAN: Pedro Flanagan M.D. REFERRING PHYSICIAN: Quincy Herrera M.D. REASON FOR CONSULTATION: Hypothyroidism. HISTORY OF PRESENT ILLNESS: The patient is a pleasant 66-year-old female with long-standing history of hypothyroidism for many years. She was admitted to the hospital on 12/17/2016 with respiratory distress with COPD exacerbation. The patient has a history of COPD and chronic tracheostomy. As a part of an evaluation, a thyroid function test was obtained, which showed an elevated TSH of 26. As an outpatient, she has been on levothyroxine 75 mcg. Endocrinology was consulted. PAST MEDICAL HISTORY: 1. COPD. 2. Hypothyroidism. 3. Diabetes. 4. CHF. MEDICATIONS: Reviewed and reconciled. REVIEW OF SYSTEMS: A 12-point review of systems was performed and pertinent positives and negatives as mentioned in the history of present illness. PHYSICAL EXAMINATION: GENERAL: The patient is awake and alert. VITAL SIGNS: Blood pressure is 105/50, pulse of 58, temperature of 98.2 degrees, and respiratory rate of 18. HEENT: Pupils are equal and reactive to light. Sclerae are anicteric. NECK: scar of tracheostomy. HEART: Regular. LUNGS: Crackles. ABDOMEN: Positive bowel sounds. EXTREMITIES: Trace edema. LABORATORY VALUES: Sodium 142, potassium 4.0, chloride 105, bicarbonate 30, BUN 14, creatinine 0.6, and glucose 121. TSH 26. Glucose values, 79, 91, 116, and 76. DIAGNOSES: 1. Chronic obstructive pulmonary disease exacerbation. 2. Diabetes. 3. Hypothyroidism. 4. Elevated thyroid stimulating hormone. DISCUSSION: 1. I concur with the increased dose of levothyroxine from 75 to 88 mcg. TSH will be repeated in about 6 to 8 weeks for further adjustment. 2. The patient is on Actos 15 mg daily for diabetes management. Her blood glucose values are on the lower side. I will check hemoglobin A1c. If the A1c is normal, I would rather take her off of the Actos and just continue to manage her diabetes with diet. We will follow her during the hospital stay for the management of her endocrine issues. Thank you, Dr. Herrera, for the courtesy of this consultation. Pedro Flanagan M.D. DR: JOSHUA JOB#: [id number] CC: BENJAMÍN
[2017-01-03] MEDS: Heparin 5000 units/ml inj SUBQ SCH ×2 (09:05→20:46)
[2017-01-03 12:00] VITALS: BP 111/60
[2017-01-03 16:00] VITALS: BP 92/52
--- NOTE | 2017-01-03 17:32 | GI Progress Note ---
Assessment/Plan Problems: (1) PEG (percutaneous endoscopic gastrostomy) adjustment/replacement/removal ICD Codes: Z43.1 - Encounter for attention to gastrostomy SNOMED: 279705321, 752601139 (2) Chronic pain ICD Codes: G89.29 - Other chronic pain SNOMED: 48603254 (3) Diabetes mellitus ICD Codes: E11.9 - Type 2 diabetes mellitus without complications SNOMED: 86320968 (4) Hypothyroidism ICD Codes: E03.9 - Hypothyroidism, unspecified SNOMED: 60713350 Status: stable Status Narrative Discussed with Dr. Mesa. Assessment/Plan okay for DC per GI standpoint cdiff negative s/p GT removal GT site care daily/prn soft diet, push PO fu labs fu Hep C antibody Subjective Subjective hungry, tolerating diet Objective Last 24 Hour Vital Signs Date Time Temp Pulse Resp B/P (MAP) Pulse Ox O2 Delivery O2 Flow Rate FiO2 01/03/17 16:00 97.0 58 19 92/52 99 Nasal Cannula 2.0 01/03/17 12:00 97.5 51 18 111/60 98 Nasal Cannula 2.0 01/03/17 09:00 56 01/03/17 08:12 Nasal Cannula 2.0 28 01/03/17 08:12 99 Nasal Cannula 2.0 28 01/03/17 08:00 97.0 56 19 87/57 98 Nasal Cannula 2.0 01/03/17 06:49 97.8 01/03/17 04:00 97.8 63 18 100/50 95 Nasal Cannula 2.0 01/03/17 00:00 97.3 59 18 99/56 94 Nasal Cannula 2.0 01/02/17 19:49 96.8 58 18 94/53 92 Nasal Cannula 2.0 Laboratory Tests Test 01/03/17 05:20 White Blood Count 9.1 K/UL (4.8-10.8) Red Blood Count 4.54 M/UL (4.20-5.40) Hemoglobin 13.3 G/DL (12.0-16.0) Hematocrit 43.1 % (37.0-47.0) Mean Corpuscular Volume 95 FL (80-99) Mean Corpuscular Hemoglobin 29.2 PG (27.0-31.0) Mean Corpuscular Hemoglobin Concent 30.8 G/DL (32.0-36.0) L Red Cell Distribution Width 15.2 % (11.6-14.8) H Platelet Count 387 K/UL (150-450) Mean Platelet Volume 7.2 FL (6.5-10.1) Neutrophils (%) (Auto) 40.9 % (45.0-75.0) L Lymphocytes (%) (Auto) 42.8 % (20.0-45.0) Monocytes (%) (Auto) 5.3 % (1.0-10.0) Eosinophils (%) (Auto) 9.3 % (0.0-3.0) H Basophils (%) (Auto) 1.7 % (0.0-2.0) Sodium Level 142 MMOL/L (136-145) Potassium Level 4.5 MMOL/L (3.5-5.1) Chloride Level 105 MMOL/L (98-107) Carbon Dioxide Level 30 MMOL/L (21-32) Anion Gap 7 mmol/L (5-15) Blood Urea Nitrogen 12 mg/dL (7-18) Creatinine 0.5 MG/DL (0.55-1.30) L Estimat Glomerular Filtration Rate > 60 mL/min (>60) Glucose Level 81 MG/DL (74-106) Hemoglobin A1c 6.8 % (4.3-6.0) H Calcium Level 9.5 MG/DL (8.5-10.1) HIV (1&2) Antibody Rapid Negative (NEGATIVE) Height (Feet): 5 Height (Inches): 7.00 Weight (Pounds): 126 General Appearance: WD/WN, no apparent distress, alert Cardiovascular: normal rate Respiratory/Chest: normal breath sounds, no respiratory distress Abdominal Exam: normal bowel sounds, non tender, soft, GT site - healing well Extremities: normal range of motion, non-tender Shruti Roberson N.P. Jan 03, 2017 17:32
--- NOTE | 2017-01-03 17:32 | GI Progress Note ---
Assessment/Plan Problems: (1) PEG (percutaneous endoscopic gastrostomy) adjustment/replacement/removal ICD Codes: Z43.1 - Encounter for attention to gastrostomy SNOMED: 786647651, 101769269 (2) Chronic pain ICD Codes: G89.29 - Other chronic pain SNOMED: 02505248 (3) Diabetes mellitus ICD Codes: E11.9 - Type 2 diabetes mellitus without complications SNOMED: 38972863 (4) Hypothyroidism ICD Codes: E03.9 - Hypothyroidism, unspecified SNOMED: 80578811 Status: stable Status Narrative Discussed with Dr. Mesa. Assessment/Plan okay for DC per GI standpoint cdiff negative s/p GT removal GT site care daily/prn soft diet, push PO fu labs fu Hep C antibody Subjective Subjective hungry, tolerating diet Objective Last 24 Hour Vital Signs Date Time Temp Pulse Resp B/P (MAP) Pulse Ox O2 Delivery O2 Flow Rate FiO2 01/03/17 16:00 97.0 58 19 92/52 99 Nasal Cannula 2.0 01/03/17 12:00 97.5 51 18 111/60 98 Nasal Cannula 2.0 01/03/17 09:00 56 01/03/17 08:12 Nasal Cannula 2.0 28 01/03/17 08:12 99 Nasal Cannula 2.0 28 01/03/17 08:00 97.0 56 19 87/57 98 Nasal Cannula 2.0 01/03/17 06:49 97.8 01/03/17 04:00 97.8 63 18 100/50 95 Nasal Cannula 2.0 01/03/17 00:00 97.3 59 18 99/56 94 Nasal Cannula 2.0 01/02/17 19:49 96.8 58 18 94/53 92 Nasal Cannula 2.0 Laboratory Tests Test 01/03/17 05:20 White Blood Count 9.1 K/UL (4.8-10.8) Red Blood Count 4.54 M/UL (4.20-5.40) Hemoglobin 13.3 G/DL (12.0-16.0) Hematocrit 43.1 % (37.0-47.0) Mean Corpuscular Volume 95 FL (80-99) Mean Corpuscular Hemoglobin 29.2 PG (27.0-31.0) Mean Corpuscular Hemoglobin Concent 30.8 G/DL (32.0-36.0) L Red Cell Distribution Width 15.2 % (11.6-14.8) H Platelet Count 387 K/UL (150-450) Mean Platelet Volume 7.2 FL (6.5-10.1) Neutrophils (%) (Auto) 40.9 % (45.0-75.0) L Lymphocytes (%) (Auto) 42.8 % (20.0-45.0) Monocytes (%) (Auto) 5.3 % (1.0-10.0) Eosinophils (%) (Auto) 9.3 % (0.0-3.0) H Basophils (%) (Auto) 1.7 % (0.0-2.0) Sodium Level 142 MMOL/L (136-145) Potassium Level 4.5 MMOL/L (3.5-5.1) Chloride Level 105 MMOL/L (98-107) Carbon Dioxide Level 30 MMOL/L (21-32) Anion Gap 7 mmol/L (5-15) Blood Urea Nitrogen 12 mg/dL (7-18) Creatinine 0.5 MG/DL (0.55-1.30) L Estimat Glomerular Filtration Rate > 60 mL/min (>60) Glucose Level 81 MG/DL (74-106) Hemoglobin A1c 6.8 % (4.3-6.0) H Calcium Level 9.5 MG/DL (8.5-10.1) HIV (1&2) Antibody Rapid Negative (NEGATIVE) Height (Feet): 5 Height (Inches): 7.00 Weight (Pounds): 126 General Appearance: WD/WN, no apparent distress, alert Cardiovascular: normal rate Respiratory/Chest: normal breath sounds, no respiratory distress Abdominal Exam: normal bowel sounds, non tender, soft, GT site - healing well Extremities: normal range of motion, non-tender Shruti Roberson N.P. Jan 03, 2017 17:32
--- NOTE | 2017-01-03 17:32 | GI Progress Note ---
Assessment/Plan Problems: (1) PEG (percutaneous endoscopic gastrostomy) adjustment/replacement/removal ICD Codes: Z43.1 - Encounter for attention to gastrostomy SNOMED: 898388028, 984158599 (2) Chronic pain ICD Codes: G89.29 - Other chronic pain SNOMED: 85460774 (3) Diabetes mellitus ICD Codes: E11.9 - Type 2 diabetes mellitus without complications SNOMED: 86887358 (4) Hypothyroidism ICD Codes: E03.9 - Hypothyroidism, unspecified SNOMED: 10657424 Status: stable Status Narrative Discussed with Dr. Mesa. Assessment/Plan okay for DC per GI standpoint cdiff negative s/p GT removal GT site care daily/prn soft diet, push PO fu labs fu Hep C antibody Subjective Subjective hungry, tolerating diet Objective Last 24 Hour Vital Signs Date Time Temp Pulse Resp B/P (MAP) Pulse Ox O2 Delivery O2 Flow Rate FiO2 01/03/17 16:00 97.0 58 19 92/52 99 Nasal Cannula 2.0 01/03/17 12:00 97.5 51 18 111/60 98 Nasal Cannula 2.0 01/03/17 09:00 56 01/03/17 08:12 Nasal Cannula 2.0 28 01/03/17 08:12 99 Nasal Cannula 2.0 28 01/03/17 08:00 97.0 56 19 87/57 98 Nasal Cannula 2.0 01/03/17 06:49 97.8 01/03/17 04:00 97.8 63 18 100/50 95 Nasal Cannula 2.0 01/03/17 00:00 97.3 59 18 99/56 94 Nasal Cannula 2.0 01/02/17 19:49 96.8 58 18 94/53 92 Nasal Cannula 2.0 Laboratory Tests Test 01/03/17 05:20 White Blood Count 9.1 K/UL (4.8-10.8) Red Blood Count 4.54 M/UL (4.20-5.40) Hemoglobin 13.3 G/DL (12.0-16.0) Hematocrit 43.1 % (37.0-47.0) Mean Corpuscular Volume 95 FL (80-99) Mean Corpuscular Hemoglobin 29.2 PG (27.0-31.0) Mean Corpuscular Hemoglobin Concent 30.8 G/DL (32.0-36.0) L Red Cell Distribution Width 15.2 % (11.6-14.8) H Platelet Count 387 K/UL (150-450) Mean Platelet Volume 7.2 FL (6.5-10.1) Neutrophils (%) (Auto) 40.9 % (45.0-75.0) L Lymphocytes (%) (Auto) 42.8 % (20.0-45.0) Monocytes (%) (Auto) 5.3 % (1.0-10.0) Eosinophils (%) (Auto) 9.3 % (0.0-3.0) H Basophils (%) (Auto) 1.7 % (0.0-2.0) Sodium Level 142 MMOL/L (136-145) Potassium Level 4.5 MMOL/L (3.5-5.1) Chloride Level 105 MMOL/L (98-107) Carbon Dioxide Level 30 MMOL/L (21-32) Anion Gap 7 mmol/L (5-15) Blood Urea Nitrogen 12 mg/dL (7-18) Creatinine 0.5 MG/DL (0.55-1.30) L Estimat Glomerular Filtration Rate > 60 mL/min (>60) Glucose Level 81 MG/DL (74-106) Hemoglobin A1c 6.8 % (4.3-6.0) H Calcium Level 9.5 MG/DL (8.5-10.1) HIV (1&2) Antibody Rapid Negative (NEGATIVE) Height (Feet): 5 Height (Inches): 7.00 Weight (Pounds): 126 General Appearance: WD/WN, no apparent distress, alert Cardiovascular: normal rate Respiratory/Chest: normal breath sounds, no respiratory distress Abdominal Exam: normal bowel sounds, non tender, soft, GT site - healing well Extremities: normal range of motion, non-tender Shruti Roberson N.P. Jan 03, 2017 17:32
[2017-01-03] MEDS: Miralax 17gm pkt ORAL PRN ×2 (17:56→18:03)
[2017-01-03 19:34] VITALS: BP 103/66
[2017-01-03] MEDS ORDERED: Docusate 100mg cap ORAL PRN (20:00)
[2017-01-03] MEDS: Sennosides 8.6mg ORAL SCH (20:42)
[2017-01-03] MEDS: Dyna-Hex 2% Top Sol 2oz TOPIC SCH (20:42)
--- NOTE | 2017-01-03 21:01 | Infectious Diseases Prog Note ---
Assessment/Plan Assessment/Plan Assessment: SOB- likely related to malpositioned trach +/- ?PNA- resolved Possible PNA, s/p Rx -CXR: Interstitial disease nonspecific. CHF, pneumonitis not excluded -spu cx ordered, not collected Leukocytosis- ?reactive vs 2ry to PNA vs combination- resolved -Bcx Neg -u/a WBC 2-4 Diarrhea- neg cdiff COPD and chronic tracheostomy- s/p trach decanulized 12/21 CHF, spinal fusion, DVT, s/p hip surgery, chronic pain, [place] [facility] resident No ABX allergies Full Code Plan: -Continue to monitor off abx -s/p 5d IV Ceftriaxone/azithromycin 12/21 -s/p 1 d IV Vanco/Cefpime 12/18 -s/p 1d Levaquin 12/17 -f/u Hep C ab (per patient request) -Monitor CBC/BMP, temperatures -Aspiration precautions. Subjective Allergies: Coded Allergies: ACETAMINOPHEN (Unverified Allergy, Unknown, 12/17/16) CODEINE (Unverified Allergy, Unknown, 03/04/14) IODINE (Unverified Allergy, Unknown, 12/17/16) Subjective remains afebrile appears comfortable Objective Vital Signs Last 24 Hour Vital Signs Date Time Temp Pulse Resp B/P (MAP) Pulse Ox O2 Delivery O2 Flow Rate FiO2 01/03/17 19:34 97.5 66 20 103/66 97 Room Air 01/03/17 16:00 97.0 58 19 92/52 99 Nasal Cannula 2.0 01/03/17 12:00 97.5 51 18 111/60 98 Nasal Cannula 2.0 01/03/17 09:00 56 01/03/17 08:12 Nasal Cannula 2.0 28 01/03/17 08:12 99 Nasal Cannula 2.0 28 01/03/17 08:00 97.0 56 19 87/57 98 Nasal Cannula 2.0 01/03/17 06:49 97.8 01/03/17 04:00 97.8 63 18 100/50 95 Nasal Cannula 2.0 01/03/17 00:00 97.3 59 18 99/56 94 Nasal Cannula 2.0 Height (Feet): 5 Height (Inches): 7.00 Weight (Pounds): 126 General Appearance: no acute distress Respiratory/Chest: no respiratory distress Cardiovascular: normal rate, regular rhythm Abdomen: normal bowel sounds, soft, non tender, non distended Laboratory Tests Test 01/03/17 05:20 White Blood Count 9.1 K/UL (4.8-10.8) Red Blood Count 4.54 M/UL (4.20-5.40) Hemoglobin 13.3 G/DL (12.0-16.0) Hematocrit 43.1 % (37.0-47.0) Mean Corpuscular Volume 95 FL (80-99) Mean Corpuscular Hemoglobin 29.2 PG (27.0-31.0) Mean Corpuscular Hemoglobin Concent 30.8 G/DL (32.0-36.0) L Red Cell Distribution Width 15.2 % (11.6-14.8) H Platelet Count 387 K/UL (150-450) Mean Platelet Volume 7.2 FL (6.5-10.1) Neutrophils (%) (Auto) 40.9 % (45.0-75.0) L Lymphocytes (%) (Auto) 42.8 % (20.0-45.0) Monocytes (%) (Auto) 5.3 % (1.0-10.0) Eosinophils (%) (Auto) 9.3 % (0.0-3.0) H Basophils (%) (Auto) 1.7 % (0.0-2.0) Sodium Level 142 MMOL/L (136-145) Potassium Level 4.5 MMOL/L (3.5-5.1) Chloride Level 105 MMOL/L (98-107) Carbon Dioxide Level 30 MMOL/L (21-32) Anion Gap 7 mmol/L (5-15) Blood Urea Nitrogen 12 mg/dL (7-18) Creatinine 0.5 MG/DL (0.55-1.30) L Estimat Glomerular Filtration Rate > 60 mL/min (>60) Glucose Level 81 MG/DL (74-106) Hemoglobin A1c 6.8 % (4.3-6.0) H Calcium Level 9.5 MG/DL (8.5-10.1) HIV (1&2) Antibody Rapid Negative (NEGATIVE) Current Medications Medications (Trade) Dose Ordered Sig/Sandra Route PRN Reason Start Time Stop Time Status Last Admin Dose Admin Al Hydroxide/Mg Hydroxide (Mylanta II) 30 ml Q6H PRN GT dyspepsia 12/22/16 12:00 01/16/17 11:59 12/27/16 21:50 Chlorhexidine Gluconate (Chioma-Hex 2%) 1 applic DAILY@2000 TOPIC 12/23/16 20:00 01/22/17 19:59 01/03/17 20:42 Dextrose (Dextrose 50%) STAT PRN IV Hypoglycemia 12/22/16 12:00 01/19/17 11:59 Digoxin (Lanoxin) 0.25 mg DAILY GT 12/23/16 09:00 01/17/17 09:29 01/02/17 09:02 Docusate Sodium (Colace) 200 mg TIDPRN PRN ORAL Constipation 2nd line agent 01/03/17 20:00 02/02/17 19:59 Gabapentin (Neurontin) 300 mg TID GT 12/22/16 13:00 01/18/17 13:59 01/03/17 17:56 Heparin Sodium (Porcine) (Heparin 5000 units/ml) 5,000 units EVERY 12 HOURS SUBQ 12/22/16 21:00 01/17/17 08:59 01/03/17 20:46 Hydroxyzine HCl (Atarax) 25 mg BID GT 12/22/16 18:00 01/17/17 08:59 01/03/17 17:57 Insulin Aspart (NovoLOG) AC+HS SUBQ 12/30/16 21:00 01/17/17 17:59 01/02/17 21:51 Ketorolac Tromethamine (Toradol 30mg) 15 mg Q6H PRN IV For Pain 01/02/17 21:00 01/07/17 20:59 01/03/17 06:19 Levothyroxine Sodium (Synthroid) 88 mcg ACBREAKFAST GT 12/29/16 06:30 01/28/17 06:29 01/03/17 06:19 Mirtazapine (Remeron) 15 mg BEDTIME GT 12/26/16 21:00 01/25/17 20:59 01/03/17 20:42 Nitroglycerin (Ntg) 0.4 mg Q5MIN X 3 DOSES PRN SL Prn Chest Pain 12/22/16 12:00 01/18/17 17:19 Ondansetron HCl (Zofran) 4 mg Q6H PRN IVP Nausea & Vomiting 12/22/16 12:00 01/16/17 11:59 Pioglitazone HCl (Actos) 15 mg DAILY GT 12/23/16 09:00 01/17/17 09:29 01/03/17 08:56 Polyethylene Glycol (Miralax) 17 gm DAILYPRN PRN ORAL Constipation 12/22/16 12:00 01/19/17 11:59 Sennosides (Senokot) 8.6 mg DAILY ORAL 01/03/17 21:00 02/02/17 20:59 01/03/17 20:42 JESENIA JEFF Jan 03, 2017 21:00
--- NOTE | 2017-01-03 21:45 | Pulmonology Progress Note ---
Assessment/Plan Problems: (1) Purulent bronchitis (2) Acute and chronic respiratory failure ([id number]) (3) Tracheostomy malfunction (4) COPD (chronic obstructive pulmonary disease) (5) Interstitial lung disease (6) Diabetes mellitus (7) Hypothyroidism Assessment/Plan symptomatic treatment tolerating off trach, respiratory treatment check sputum psych evaluation all notes reviewed awaiting discharge Subjective ROS Limited/Unobtainable: No Constitutional: Reports: no symptoms HEENT: Repors: no symptoms Respiratory: Reports: no symptoms Allergies: Coded Allergies: ACETAMINOPHEN (Unverified Allergy, Unknown, 12/17/16) CODEINE (Unverified Allergy, Unknown, 03/04/14) IODINE (Unverified Allergy, Unknown, 12/17/16) Objective Last 24 Hour Vital Signs Date Time Temp Pulse Resp B/P (MAP) Pulse Ox O2 Delivery O2 Flow Rate FiO2 01/03/17 19:49 98 Nasal Cannula 2.0 28 01/03/17 19:49 Nasal Cannula 2.0 28 01/03/17 19:34 97.5 66 20 103/66 97 Room Air 01/03/17 16:00 97.0 58 19 92/52 99 Nasal Cannula 2.0 01/03/17 12:00 97.5 51 18 111/60 98 Nasal Cannula 2.0 01/03/17 09:00 56 01/03/17 08:12 Nasal Cannula 2.0 28 01/03/17 08:12 99 Nasal Cannula 2.0 28 01/03/17 08:00 97.0 56 19 87/57 98 Nasal Cannula 2.0 01/03/17 06:49 97.8 01/03/17 04:00 97.8 63 18 100/50 95 Nasal Cannula 2.0 01/03/17 00:00 97.3 59 18 99/56 94 Nasal Cannula 2.0 Intake and Output 01/03/17 01/04/17 19:00 07:00 Intake Total 360 ml Output Total 150 ml Balance 210 ml Intake Oral 360 ml Output Urine Total 150 ml Objective General Appearance: no acute distress, cachetic HEENT: normocephalic, atraumatic Respiratory/Chest: chest wall non-tender, lungs clear, normal breath sounds Cardiovascular: normal peripheral pulses, normal rate Abdomen: normal bowel sounds, soft, non tender Genitourinary: normal external genitalia Extremities: no cyanosis Skin: no rash Laboratory Tests 01/03/17 05:20: White Blood Count 9.1, Red Blood Count 4.54, Hemoglobin 13.3, Hematocrit 43.1, Mean Corpuscular Volume 95, Mean Corpuscular Hemoglobin 29.2, Mean Corpuscular Hemoglobin Concent 30.8L, Red Cell Distribution Width 15.2H, Platelet Count 387 , Mean Platelet Volume 7.2, Neutrophils (%) (Auto) 40.9L, Lymphocytes (%) (Auto ) 42.8, Monocytes (%) (Auto) 5.3, Eosinophils (%) (Auto) 9.3H, Basophils (%) ( Auto) 1.7, Sodium Level 142, Potassium Level 4.5, Chloride Level 105, Carbon Dioxide Level 30, Anion Gap 7, Blood Urea Nitrogen 12, Creatinine 0.5L, Estimat Glomerular Filtration Rate > 60, Glucose Level 81, Hemoglobin A1c 6.8H, Calcium Level 9.5, HIV (1&2) Antibody Rapid Negative Current Medications Medications (Trade) Dose Ordered Sig/Sandra Route PRN Reason Start Time Stop Time Status Last Admin Dose Admin Al Hydroxide/Mg Hydroxide (Mylanta II) 30 ml Q6H PRN GT dyspepsia 12/22/16 12:00 01/16/17 11:59 12/27/16 21:50 Chlorhexidine Gluconate (Chioma-Hex 2%) 1 applic DAILY@1999 TOPIC 12/23/16 20:00 01/22/17 19:59 01/03/17 20:42 Dextrose (Dextrose 50%) STAT PRN IV Hypoglycemia 12/22/16 12:00 01/19/17 11:59 Digoxin (Lanoxin) 0.25 mg DAILY GT 12/23/16 09:00 01/17/17 09:29 01/02/17 09:02 Docusate Sodium (Colace) 200 mg TIDPRN PRN ORAL Constipation 2nd line agent 01/03/17 20:00 02/02/17 19:59 Gabapentin (Neurontin) 300 mg TID GT 12/22/16 13:00 01/18/17 13:59 01/03/17 17:56 Heparin Sodium (Porcine) (Heparin 5000 units/ml) 5,000 units EVERY 12 HOURS SUBQ 12/22/16 21:00 01/17/17 08:59 01/03/17 20:46 Hydroxyzine HCl (Atarax) 25 mg BID GT 12/22/16 18:00 01/17/17 08:59 01/03/17 17:57 Insulin Aspart (NovoLOG) AC+HS SUBQ 12/30/16 21:00 01/17/17 17:59 01/02/17 21:51 Ketorolac Tromethamine (Toradol 30mg) 15 mg Q6H PRN IV For Pain 01/02/17 21:00 01/07/17 20:59 01/03/17 06:19 Levothyroxine Sodium (Synthroid) 88 mcg ACBREAKFAST GT 12/29/16 06:30 01/28/17 06:29 01/03/17 06:19 Mirtazapine (Remeron) 15 mg BEDTIME GT 12/26/16 21:00 01/25/17 20:59 01/03/17 20:42 Nitroglycerin (Ntg) 0.4 mg Q5MIN X 3 DOSES PRN SL Prn Chest Pain 12/22/16 12:00 01/18/17 17:19 Ondansetron HCl (Zofran) 4 mg Q6H PRN IVP Nausea & Vomiting 12/22/16 12:00 01/16/17 11:59 Pioglitazone HCl (Actos) 15 mg DAILY GT 12/23/16 09:00 01/17/17 09:29 01/03/17 08:56 Polyethylene Glycol (Miralax) 17 gm DAILYPRN PRN ORAL Constipation 12/22/16 12:00 01/19/17 11:59 Sennosides (Senokot) 8.6 mg DAILY ORAL 01/03/17 21:00 02/02/17 20:59 01/03/17 20:42 DEDRICK SOLANO Jan 03, 2017 21:45
--- NOTE | 2017-01-03 22:27 | General Progress Note ---
Assessment/Plan Status: stable, progressing Assessment/Plan mdd cont current meds provided ro/st Subjective Neurologic/Psychiatric: Reports: anxiety, depressed, emotional problems Allergies: Coded Allergies: ACETAMINOPHEN (Unverified Allergy, Unknown, 12/17/16) CODEINE (Unverified Allergy, Unknown, 03/04/14) IODINE (Unverified Allergy, Unknown, 12/17/16) Subjective pt is calm c/o long hospitalization Objective Last 24 Hour Vital Signs Date Time Temp Pulse Resp B/P (MAP) Pulse Ox O2 Delivery O2 Flow Rate FiO2 01/03/17 19:49 98 Nasal Cannula 2.0 28 01/03/17 19:49 Nasal Cannula 2.0 28 01/03/17 19:34 97.5 66 20 103/66 97 Room Air 01/03/17 16:00 97.0 58 19 92/52 99 Nasal Cannula 2.0 01/03/17 12:00 97.5 51 18 111/60 98 Nasal Cannula 2.0 01/03/17 09:00 56 01/03/17 08:12 Nasal Cannula 2.0 28 01/03/17 08:12 99 Nasal Cannula 2.0 28 01/03/17 08:00 97.0 56 19 87/57 98 Nasal Cannula 2.0 01/03/17 06:49 97.8 01/03/17 04:00 97.8 63 18 100/50 95 Nasal Cannula 2.0 01/03/17 00:00 97.3 59 18 99/56 94 Nasal Cannula 2.0 Intake and Output 01/03/17 01/04/17 19:00 07:00 Intake Total 360 ml Output Total 150 ml Balance 210 ml Intake Oral 360 ml Output Urine Total 150 ml Laboratory Tests 01/03/17 05:20: White Blood Count 9.1, Red Blood Count 4.54, Hemoglobin 13.3, Hematocrit 43.1, Mean Corpuscular Volume 95, Mean Corpuscular Hemoglobin 29.2, Mean Corpuscular Hemoglobin Concent 30.8L, Red Cell Distribution Width 15.2H, Platelet Count 387 , Mean Platelet Volume 7.2, Neutrophils (%) (Auto) 40.9L, Lymphocytes (%) (Auto ) 42.8, Monocytes (%) (Auto) 5.3, Eosinophils (%) (Auto) 9.3H, Basophils (%) ( Auto) 1.7, Sodium Level 142, Potassium Level 4.5, Chloride Level 105, Carbon Dioxide Level 30, Anion Gap 7, Blood Urea Nitrogen 12, Creatinine 0.5L, Estimat Glomerular Filtration Rate > 60, Glucose Level 81, Hemoglobin A1c 6.8H, Calcium Level 9.5, HIV (1&2) Antibody Rapid Negative Height (Feet): 5 Height (Inches): 7.00 Weight (Pounds): 126 General Appearance: no apparent distress, alert, overweight Neurologic: alert, oriented x 3, responsive, depressed affect Kallie Fernandez M.D. Jan 03, 2017 22:26
[2017-01-04] VITALS (7 sets, daily range): BP systolic 87–126; BP diastolic 48–73
[2017-01-04] MEDS: Ketorolac 30mg Inj IV PRN (01:42)
[2017-01-04] MEDS: NovoLOG Insulin Flexpen SUBQ SCH ×4 (06:30→21:00)
[2017-01-04 07:11] LABS: BASOPHILS % (AUTO) 2.3 % (0.0-2.0); EOSINOPHILS % (AUTO) 9.9 % (0.0-3.0); HEMATOCRIT 41.6 % (37.0-47.0); HEMOGLOBIN 12.7 G/DL (12.0-16.0); LYMPHOCYTES % (AUTO) 31.2 % (20.0-45.0); MEAN CORPUSCULAR VOLUME 95 FL (80-99); MONOCYTES % (AUTO) 5.4 % (1.0-10.0); NEUTROPHILS % (AUTO) 51.3 % (45.0-75.0); PLATELET COUNT 346 K/UL (150-450); RED BLOOD COUNT 4.38 M/UL (4.20-5.40); RED CELL DISTRIBUTION WIDTH 15.1 % (11.6-14.8); WHITE BLOOD COUNT 7.8 K/UL (4.8-10.8)
[2017-01-04 07:35] LABS: ANION GAP 3 mmol/L (5-15); BLOOD UREA NITROGEN 14 mg/dL (7-18); CALCIUM 9.3 MG/DL (8.5-10.1); CARBON DIOXIDE 34 MMOL/L (21-32); CHLORIDE 106 MMOL/L (98-107); CREATININE 0.6 MG/DL (0.55-1.30); POTASSIUM 4.1 MMOL/L (3.5-5.1); SODIUM 143 MMOL/L (136-145)
--- NOTE | 2017-01-04 08:30 | Consultation ---
DATE OF CONSULTATION: 01/03/2017 HISTORY OF PRESENT ILLNESS: The patient is a 66-year-old female with a very complicated medical history. She underwent a right hip hemiarthroplasty. Subsequently, I believe she has got a dislocation, more likely infection. She subsequently then had a cement spacer in the right hip placed. I believe the cement spacer may have been subluxed or dislocated. She has seen Dr. Surinder Hale for possible revision and conversion to total hip arthroplasty was told that she is too high risk for surgery. The patient is now admitted for COPD exacerbation. Orthopedic consultation was obtained for further care and recommendation. PAST MEDICAL HISTORY: Reviewed from the intake chart. PAST SURGICAL HISTORY: Reviewed from the intake chart. MEDICATIONS: Reviewed from the intake chart. PHYSICAL EXAMINATION: EXTREMITIES: Right hip incision is clean, dry, and intact. The right leg is short and internally rotated. Posterior calf is soft. Neurovascular is normal. ASSESSMENT: Status post resection arthroplasty for right hip infection. DISCUSSION: At this point, it was something that probably best reevaluated by Dr. Hale. I doubt that she is really a good candidate for conversion to a total hip arthroplasty. I think she is a high risk for infection as well as dislocation, however, ultimately that is her best option to be able to get up and be more mobile. If she is medically optimized, then I would recommend to follow with orthopedic surgeon for consideration for total hip arthroplasty if she has truly has cleared the infection. Scott Hdz M.D. DR: GUILLERMINA JOB#: [id number] CC: Quincy Herrera M.D.; Fax#: [phone] [facility]ITALKeila
--- NOTE | 2017-01-04 09:17 | Pulmonology Progress Note ---
Assessment/Plan Assessment/Plan ASSESSMENT acute on chronic respiratory failure acute purulent bronchitis possible PNA, s/p Rx tracheostomy malfunctioning, s/p replacement of trach tube in ED COPD interstitial lung disease s/p decannulation hypothyroidism with elevated TSH dysphagia , G tube leaking G tube high aspiration risk depression sacrococcyx decub st 2 POA likely protein calorie malnutrition major depressive disorder PLAN OF CARE MS floor O2 HHN prn respiratory status stable after decannulation pulse ox stable on O2 via NC, no signs of respiratory distress sputum cx not collected, blood cx negative, stool C dif negative initially empiric abx for possible PNA, s/p rx a/tussive prn CXR with interstitial congestion leukocytosis resolved ID follows currently off abx, monitor clinically, no evidence of infection GT out - removed by GI BSSE and VSE done earlier , OK for quality of life to initiate diet as per ST recommendations with strict aspiration/reflux precautions and 1 to 1 supervision GI started on regular diet with texture modification as recommended by ST tolerates diet surgery follows, no need for surgical interventions DVT prophylaxis PT Rx continue TSH elevated, increase dose of levothyroxine Digoxin level stable BS management with SS of insulin and Actos, optimize as needed wound care as per wound nurse recommendations dietary eval noted, on dietary supplements as suggested psych follows per psych -no need for sitter , no need for psych hospital medical management with antidepressant GI eval appreciated for leaking G tube awaiting for decision from appeal challenging placement awaiting for disposition ase discussed and evaluated by supervising physician Subjective Allergies: Coded Allergies: ACETAMINOPHEN (Unverified Allergy, Unknown, 12/17/16) CODEINE (Unverified Allergy, Unknown, 03/04/14) IODINE (Unverified Allergy, Unknown, 12/17/16) Subjective no signs of respiratory distress on O2 via NC pulse ox stable GT out tolerates diet, no signs of aspiration Objective Last 24 Hour Vital Signs Date Time Temp Pulse Resp B/P (MAP) Pulse Ox O2 Delivery O2 Flow Rate FiO2 01/04/17 08:00 96.8 72 16 102/52 100 Nasal Cannula 2.0 01/04/17 04:12 64 99/52 01/04/17 03:36 97.5 66 20 87/48 97 Room Air 01/04/17 00:01 97.5 64 20 110/56 100 Room Air 01/03/17 19:49 98 Nasal Cannula 2.0 28 10/19/17 19:49 Nasal Cannula 2.0 28 01/03/17 19:34 97.5 66 20 103/66 97 Room Air 01/03/17 16:00 97.0 58 19 92/52 99 Nasal Cannula 2.0 01/03/17 12:00 97.5 51 18 111/60 98 Nasal Cannula 2.0 Objective General Appearance: no acute distress, cachetic HEENT: normocephalic, atraumatic, anicteric Respiratory/Chest: lungs clear with moderate air exchange, no respiratory distress, no accessory muscle use, other - old trach site with Band-aid C/D/I Cardiovascular: normal rate, regular rhythm, no JVD Abdomen: normal bowel sounds, soft, non tender Neurologic/Psychiatric: abnormal gait, alert, normal mood/affect Microbiology Date/Time Source Procedure Growth Status 01/02/17 22:28 Sputum Gram Stain Pending Resulted 01/02/17 22:28 Sputum Culture - Preliminary Gram Positive Cocci Gram Negative Bacillus 1 Resulted Laboratory Tests 01/04/17 05:50: White Blood Count 7.8, Red Blood Count 4.38, Hemoglobin 12.7, Hematocrit 41.6, Mean Corpuscular Volume 95, Mean Corpuscular Hemoglobin 29.0, Mean Corpuscular Hemoglobin Concent 30.5L, Red Cell Distribution Width 15.1H, Platelet Count 346 , Mean Platelet Volume 7.2, Neutrophils (%) (Auto) 51.3, Lymphocytes (%) (Auto) 31.2, Monocytes (%) (Auto) 5.4, Eosinophils (%) (Auto) 9.9H, Basophils (%) (Auto ) 2.3H, Sodium Level 143, Potassium Level 4.1, Chloride Level 106, Carbon Dioxide Level 34H, Anion Gap 3L, Blood Urea Nitrogen 14, Creatinine 0.6, Estimat Glomerular Filtration Rate > 60, Glucose Level 82, Calcium Level 9.3 Current Medications Medications (Trade) Dose Ordered Sig/Sandra Route PRN Reason Start Time Stop Time Status Last Admin Dose Admin Al Hydroxide/Mg Hydroxide (Mylanta II) 30 ml Q6H PRN GT dyspepsia 12/22/16 12:00 01/16/17 11:59 12/27/16 21:50 Chlorhexidine Gluconate (Chioma-Hex 2%) 1 applic DAILY@1999 TOPIC 12/23/16 20:00 01/22/17 19:59 01/03/17 20:42 Dextrose (Dextrose 50%) STAT PRN IV Hypoglycemia 12/22/16 12:00 01/19/17 11:59 Digoxin (Lanoxin) 0.25 mg DAILY GT 12/23/16 09:00 01/17/17 09:29 01/02/17 09:02 Docusate Sodium (Colace) 200 mg TIDPRN PRN ORAL Constipation 2nd line agent 01/03/17 20:00 02/02/17 19:59 Gabapentin (Neurontin) 300 mg TID GT 12/22/16 13:00 01/18/17 13:59 01/03/17 17:56 Heparin Sodium (Porcine) (Heparin 5000 units/ml) 5,000 units EVERY 12 HOURS SUBQ 12/22/16 21:00 01/17/17 08:59 01/03/17 20:46 Hydroxyzine HCl (Atarax) 25 mg BID GT 12/22/16 18:00 01/17/17 08:59 01/03/17 17:57 Insulin Aspart (NovoLOG) AC+HS SUBQ 12/30/16 21:00 01/17/17 17:59 01/02/17 21:51 Ketorolac Tromethamine (Toradol 30mg) 15 mg Q6H PRN IV For Pain 01/02/17 21:00 01/07/17 20:59 01/04/17 01:42 Levothyroxine Sodium (Synthroid) 88 mcg ACBREAKFAST GT 12/29/16 06:30 01/28/17 06:29 01/04/17 05:49 Mirtazapine (Remeron) 15 mg BEDTIME GT 12/26/16 21:00 01/25/17 20:59 01/03/17 20:42 Nitroglycerin (Ntg) 0.4 mg Q5MIN X 3 DOSES PRN SL Prn Chest Pain 12/22/16 12:00 01/18/17 17:19 Ondansetron HCl (Zofran) 4 mg Q6H PRN IVP Nausea & Vomiting 12/22/16 12:00 01/16/17 11:59 Pioglitazone HCl (Actos) 15 mg DAILY GT 12/23/16 09:00 11/2/17 09:29 01/03/17 08:56 Polyethylene Glycol (Miralax) 17 gm DAILYPRN PRN ORAL Constipation 12/22/16 12:00 01/19/17 11:59 Sennosides (Senokot) 8.6 mg DAILY ORAL 01/03/17 21:00 02/02/17 20:59 01/03/17 20:42 [place] [facility]Julianne NP Jan 04, 2017 09:17
[2017-01-04] MEDS: Gabapentin 300 MG/6 ML Soln GT SCH ×3 (10:56→18:17)
[2017-01-04] MEDS: HydrOXYzine 25mg tab GT SCH ×2 (10:56→18:18)
[2017-01-04] MEDS: Heparin 5000 units/ml inj SUBQ SCH ×2 (11:22→22:06)
--- NOTE | 2017-01-04 11:22 | GI Progress Note ---
Assessment/Plan Problems: (1) PEG (percutaneous endoscopic gastrostomy) adjustment/replacement/removal ICD Codes: Z43.1 - Encounter for attention to gastrostomy SNOMED: 338773775, [id number] (2) Chronic pain ICD Codes: G89.29 - Other chronic pain SNOMED: 54467313 (3) Diabetes mellitus ICD Codes: E11.9 - Type 2 diabetes mellitus without complications SNOMED: 84268064 (4) Hypothyroidism ICD Codes: E03.9 - Hypothyroidism, unspecified SNOMED: 96978265 Status: unchanged Status Narrative Discussed with Dr. Mesa. Assessment/Plan okay for DC per GI standpoint cdiff negative s/p GT removal GT site care daily/prn soft diet, push PO fu labs fu Hep C antibody The patient was seen and examined at bedside and all new and available data was reviewed in the patients chart. I agree with the above findings, impression and plan. (Patient seen earlier today. Signature stamp does not reflect patient encounter time.). - Patrick Mesa MD Subjective Subjective tolerating diet Objective Last 24 Hour Vital Signs Date Time Temp Pulse Resp B/P (MAP) Pulse Ox O2 Delivery O2 Flow Rate FiO2 01/04/17 10:55 72 01/04/17 08:00 96.8 72 16 102/52 100 Nasal Cannula 2.0 01/04/17 04:12 64 99/52 01/04/17 03:36 97.5 66 20 87/48 97 Room Air 01/04/17 00:01 97.5 64 20 110/56 100 Room Air 01/03/17 19:49 98 Nasal Cannula 2.0 28 01/03/17 19:49 Nasal Cannula 2.0 28 01/03/17 19:34 97.5 66 20 103/66 97 Room Air 01/03/17 16:00 97.0 58 19 92/52 99 Nasal Cannula 2.0 01/03/17 12:00 97.5 51 18 111/60 98 Nasal Cannula 2.0 Laboratory Tests Test 01/04/17 05:50 White Blood Count 7.8 K/UL (4.8-10.8) Red Blood Count 4.38 M/UL (4.20-5.40) Hemoglobin 12.7 G/DL (12.0-16.0) Hematocrit 41.6 % (37.0-47.0) Mean Corpuscular Volume 95 FL (80-99) Mean Corpuscular Hemoglobin 29.0 PG (27.0-31.0) Mean Corpuscular Hemoglobin Concent 30.5 G/DL (32.0-36.0) L Red Cell Distribution Width 15.1 % (11.6-14.8) H Platelet Count 346 K/UL (150-450) Mean Platelet Volume 7.2 FL (6.5-10.1) Neutrophils (%) (Auto) 51.3 % (45.0-75.0) Lymphocytes (%) (Auto) 31.2 % (20.0-45.0) Monocytes (%) (Auto) 5.4 % (1.0-10.0) Eosinophils (%) (Auto) 9.9 % (0.0-3.0) H Basophils (%) (Auto) 2.3 % (0.0-2.0) H Sodium Level 143 MMOL/L (136-145) Potassium Level 4.1 MMOL/L (3.5-5.1) Chloride Level 106 MMOL/L (98-107) Carbon Dioxide Level 34 MMOL/L (21-32) H Anion Gap 3 mmol/L (5-15) L Blood Urea Nitrogen 14 mg/dL (7-18) Creatinine 0.6 MG/DL (0.55-1.30) Estimat Glomerular Filtration Rate > 60 mL/min (>60) Glucose Level 82 MG/DL (74-106) Calcium Level 9.3 MG/DL (8.5-10.1) Height (Feet): 5 Height (Inches): 7.00 Weight (Pounds): 126 General Appearance: WD/WN, no apparent distress, alert, thin Cardiovascular: normal rate Respiratory/Chest: no respiratory distress Abdominal Exam: normal bowel sounds, non tender, soft, GT site - s/p removal Extremities: normal range of motion, non-tender Shruti Roberson N.Sparkle Jan 04, 2017 11:22 DIAZ MESA Jan 07, 2017 08:40
--- NOTE | 2017-01-04 11:22 | GI Progress Note ---
Assessment/Plan Problems: (1) PEG (percutaneous endoscopic gastrostomy) adjustment/replacement/removal ICD Codes: Z43.1 - Encounter for attention to gastrostomy SNOMED: 432292826, 275944028 (2) Chronic pain ICD Codes: G89.29 - Other chronic pain SNOMED: 19298508 (3) Diabetes mellitus ICD Codes: E11.9 - Type 2 diabetes mellitus without complications SNOMED: 20502882 (4) Hypothyroidism ICD Codes: E03.9 - Hypothyroidism, unspecified SNOMED: 60597751 Status: unchanged Status Narrative Discussed with Dr. Mesa. Assessment/Plan okay for DC per GI standpoint cdiff negative s/p GT removal GT site care daily/prn soft diet, push PO fu labs fu Hep C antibody The patient was seen and examined at bedside and all new and available data was reviewed in the patients chart. I agree with the above findings, impression and plan. (Patient seen earlier today. Signature stamp does not reflect patient encounter time.). - Patrick Mesa MD Subjective Subjective tolerating diet Objective Last 24 Hour Vital Signs Date Time Temp Pulse Resp B/P (MAP) Pulse Ox O2 Delivery O2 Flow Rate FiO2 01/04/17 10:55 72 01/04/17 08:00 96.8 72 16 102/52 100 Nasal Cannula 2.0 01/04/17 04:12 64 99/52 01/04/17 03:36 97.5 66 20 87/48 97 Room Air 01/04/17 00:01 97.5 64 20 110/56 100 Room Air 01/03/17 19:49 98 Nasal Cannula 2.0 28 01/03/17 19:49 Nasal Cannula 2.0 28 01/03/17 19:34 97.5 66 20 103/66 97 Room Air 01/03/17 16:00 97.0 58 19 92/52 99 Nasal Cannula 2.0 01/03/17 12:00 97.5 51 18 111/60 98 Nasal Cannula 2.0 Laboratory Tests Test 01/04/17 05:50 White Blood Count 7.8 K/UL (4.8-10.8) Red Blood Count 4.38 M/UL (4.20-5.40) Hemoglobin 12.7 G/DL (12.0-16.0) Hematocrit 41.6 % (37.0-47.0) Mean Corpuscular Volume 95 FL (80-99) Mean Corpuscular Hemoglobin 29.0 PG (27.0-31.0) Mean Corpuscular Hemoglobin Concent 30.5 G/DL (32.0-36.0) L Red Cell Distribution Width 15.1 % (11.6-14.8) H Platelet Count 346 K/UL (150-450) Mean Platelet Volume 7.2 FL (6.5-10.1) Neutrophils (%) (Auto) 51.3 % (45.0-75.0) Lymphocytes (%) (Auto) 31.2 % (20.0-45.0) Monocytes (%) (Auto) 5.4 % (1.0-10.0) Eosinophils (%) (Auto) 9.9 % (0.0-3.0) H Basophils (%) (Auto) 2.3 % (0.0-2.0) H Sodium Level 143 MMOL/L (136-145) Potassium Level 4.1 MMOL/L (3.5-5.1) Chloride Level 106 MMOL/L (98-107) Carbon Dioxide Level 34 MMOL/L (21-32) H Anion Gap 3 mmol/L (5-15) L Blood Urea Nitrogen 14 mg/dL (7-18) Creatinine 0.6 MG/DL (0.55-1.30) Estimat Glomerular Filtration Rate > 60 mL/min (>60) Glucose Level 82 MG/DL (74-106) Calcium Level 9.3 MG/DL (8.5-10.1) Height (Feet): 5 Height (Inches): 7.00 Weight (Pounds): 126 General Appearance: WD/WN, no apparent distress, alert, thin Cardiovascular: normal rate Respiratory/Chest: no respiratory distress Abdominal Exam: normal bowel sounds, non tender, soft, GT site - s/p removal Extremities: normal range of motion, non-tender Shruti Robesron N.Sparkle Jan 04, 2017 11:22 DIAZ MESA Jan 07, 2017 08:40
--- NOTE | 2017-01-04 11:22 | GI Progress Note ---
Assessment/Plan Problems: (1) PEG (percutaneous endoscopic gastrostomy) adjustment/replacement/removal ICD Codes: Z43.1 - Encounter for attention to gastrostomy SNOMED: 649873034, 622244595 (2) Chronic pain ICD Codes: G89.29 - Other chronic pain SNOMED: 77500961 (3) Diabetes mellitus ICD Codes: E11.9 - Type 2 diabetes mellitus without complications SNOMED: 29366432 (4) Hypothyroidism ICD Codes: E03.9 - Hypothyroidism, unspecified SNOMED: 83976980 Status: unchanged Status Narrative Discussed with Dr. Mesa. Assessment/Plan okay for DC per GI standpoint cdiff negative s/p GT removal GT site care daily/prn soft diet, push PO fu labs fu Hep C antibody The patient was seen and examined at bedside and all new and available data was reviewed in the patients chart. I agree with the above findings, impression and plan. (Patient seen earlier today. Signature stamp does not reflect patient encounter time.). - Patrick Mesa MD Subjective Subjective tolerating diet Objective Last 24 Hour Vital Signs Date Time Temp Pulse Resp B/P (MAP) Pulse Ox O2 Delivery O2 Flow Rate FiO2 01/04/17 10:55 72 01/04/17 08:00 96.8 72 16 102/52 100 Nasal Cannula 2.0 01/04/17 04:12 64 99/52 01/04/17 03:36 97.5 66 20 87/48 97 Room Air 01/04/17 00:01 97.5 64 20 110/56 100 Room Air 01/03/17 19:49 98 Nasal Cannula 2.0 28 01/03/17 19:49 Nasal Cannula 2.0 28 01/03/17 19:34 97.5 66 20 103/66 97 Room Air 01/03/17 16:00 97.0 58 19 92/52 99 Nasal Cannula 2.0 01/03/17 12:00 97.5 51 18 111/60 98 Nasal Cannula 2.0 Laboratory Tests Test 01/04/17 05:50 White Blood Count 7.8 K/UL (4.8-10.8) Red Blood Count 4.38 M/UL (4.20-5.40) Hemoglobin 12.7 G/DL (12.0-16.0) Hematocrit 41.6 % (37.0-47.0) Mean Corpuscular Volume 95 FL (80-99) Mean Corpuscular Hemoglobin 29.0 PG (27.0-31.0) Mean Corpuscular Hemoglobin Concent 30.5 G/DL (32.0-36.0) L Red Cell Distribution Width 15.1 % (11.6-14.8) H Platelet Count 346 K/UL (150-450) Mean Platelet Volume 7.2 FL (6.5-10.1) Neutrophils (%) (Auto) 51.3 % (45.0-75.0) Lymphocytes (%) (Auto) 31.2 % (20.0-45.0) Monocytes (%) (Auto) 5.4 % (1.0-10.0) Eosinophils (%) (Auto) 9.9 % (0.0-3.0) H Basophils (%) (Auto) 2.3 % (0.0-2.0) H Sodium Level 143 MMOL/L (136-145) Potassium Level 4.1 MMOL/L (3.5-5.1) Chloride Level 106 MMOL/L (98-107) Carbon Dioxide Level 34 MMOL/L (21-32) H Anion Gap 3 mmol/L (5-15) L Blood Urea Nitrogen 14 mg/dL (7-18) Creatinine 0.6 MG/DL (0.55-1.30) Estimat Glomerular Filtration Rate > 60 mL/min (>60) Glucose Level 82 MG/DL (74-106) Calcium Level 9.3 MG/DL (8.5-10.1) Height (Feet): 5 Height (Inches): 7.00 Weight (Pounds): 126 General Appearance: WD/WN, no apparent distress, alert, thin Cardiovascular: normal rate Respiratory/Chest: no respiratory distress Abdominal Exam: normal bowel sounds, non tender, soft, GT site - s/p removal Extremities: normal range of motion, non-tender Shruti Roberson N.Sparkle Jan 04, 2017 11:22 DIAZ MESA Jan 07, 2017 08:40
[2017-01-04] MEDS: Sennosides 8.6mg ORAL SCH (11:23)
--- NOTE | 2017-01-04 12:15 | Infectious Diseases Prog Note ---
Assessment/Plan Assessment/Plan Assessment: SOB, SP likely related to malpositioned trach +/- Possible PNA, s/p Rx , SCx: GNR x 2 m/l colonizer -CXR: Interstitial disease nonspecific. CHF, pneumonitis not excluded -spu cx ordered, not collected Leukocytosis- ?reactive vs 2ry to PNA vs combination- resolved -Bcx Neg -u/a WBC 2-4 Diarrhea- neg cdiff COPD and chronic tracheostomy- s/p trach decanulized 12/21 HIV Neg CHF, spinal fusion, DVT, s/p hip surgery, chronic pain, jail resident No ABX allergies Full Code Plan: -Continue to monitor off abx -s/p 5d IV Ceftriaxone/azithromycin 12/21 -s/p 1 d IV Vanco/Cefpime 12/18 -s/p 1d Levaquin 12/17 Cxray :P -f/u Hep C ab (per patient request) -Monitor CBC/BMP, temperatures -Aspiration precautions. Subjective Constitutional: Denies: no symptoms, fever, chills, fatigue, anorexia, drenching sweats, other Allergies: Coded Allergies: ACETAMINOPHEN (Unverified Allergy, Unknown, 12/17/16) CODEINE (Unverified Allergy, Unknown, 03/04/14) IODINE (Unverified Allergy, Unknown, 12/17/16) Objective Vital Signs Last 24 Hour Vital Signs Date Time Temp Pulse Resp B/P (MAP) Pulse Ox O2 Delivery O2 Flow Rate FiO2 01/04/17 10:55 72 01/04/17 08:00 96.8 72 16 102/52 100 Nasal Cannula 2.0 01/04/17 04:12 64 99/52 01/04/17 03:36 97.5 66 20 87/48 97 Room Air 01/04/17 00:01 97.5 64 20 110/56 100 Room Air 01/03/17 19:49 98 Nasal Cannula 2.0 28 01/03/17 19:49 Nasal Cannula 2.0 28 01/03/17 19:34 97.5 66 20 103/66 97 Room Air 01/03/17 16:00 97.0 58 19 92/52 99 Nasal Cannula 2.0 Height (Feet): 5 Height (Inches): 7.00 Weight (Pounds): 126 HEENT: anicteric Respiratory/Chest: no respiratory distress Cardiovascular: normal rate Abdomen: soft, non tender Microbiology Date/Time Source Procedure Growth Status 01/02/17 22:28 Sputum Gram Stain Pending Resulted 01/02/17 22:28 Sputum Culture - Preliminary Gram Positive Cocci Gram Negative Bacillus 1 Resulted Laboratory Tests Test 01/04/17 05:50 White Blood Count 7.8 K/UL (4.8-10.8) Red Blood Count 4.38 M/UL (4.20-5.40) Hemoglobin 12.7 G/DL (12.0-16.0) Hematocrit 41.6 % (37.0-47.0) Mean Corpuscular Volume 95 FL (80-99) Mean Corpuscular Hemoglobin 29.0 PG (27.0-31.0) Mean Corpuscular Hemoglobin Concent 30.5 G/DL (32.0-36.0) L Red Cell Distribution Width 15.1 % (11.6-14.8) H Platelet Count 346 K/UL (150-450) Mean Platelet Volume 7.2 FL (6.5-10.1) Neutrophils (%) (Auto) 51.3 % (45.0-75.0) Lymphocytes (%) (Auto) 31.2 % (20.0-45.0) Monocytes (%) (Auto) 5.4 % (1.0-10.0) Eosinophils (%) (Auto) 9.9 % (0.0-3.0) H Basophils (%) (Auto) 2.3 % (0.0-2.0) H Sodium Level 143 MMOL/L (136-145) Potassium Level 4.1 MMOL/L (3.5-5.1) Chloride Level 106 MMOL/L (98-107) Carbon Dioxide Level 34 MMOL/L (21-32) H Anion Gap 3 mmol/L (5-15) L Blood Urea Nitrogen 14 mg/dL (7-18) Creatinine 0.6 MG/DL (0.55-1.30) Estimat Glomerular Filtration Rate > 60 mL/min (>60) Glucose Level 82 MG/DL (74-106) Calcium Level 9.3 MG/DL (8.5-10.1) Current Medications Medications (Trade) Dose Ordered Sig/Sandra Route PRN Reason Start Time Stop Time Status Last Admin Dose Admin Al Hydroxide/Mg Hydroxide (Mylanta II) 30 ml Q6H PRN GT dyspepsia 12/22/16 12:00 01/16/17 11:59 12/27/16 21:50 Chlorhexidine Gluconate (Chioma-Hex 2%) 1 applic DAILY@2000 TOPIC 12/23/16 20:00 01/22/17 19:59 01/03/17 20:42 Dextrose (Dextrose 50%) STAT PRN IV Hypoglycemia 12/22/16 12:00 01/19/17 11:59 Digoxin (Lanoxin) 0.25 mg DAILY GT 12/23/16 09:00 01/17/17 09:29 01/04/17 10:55 Docusate Sodium (Colace) 200 mg TIDPRN PRN ORAL Constipation 2nd line agent 01/03/17 20:00 02/02/17 19:59 Gabapentin (Neurontin) 300 mg TID GT 12/22/16 13:00 01/18/17 13:59 01/04/17 10:56 Heparin Sodium (Porcine) (Heparin 5000 units/ml) 5,000 units EVERY 12 HOURS SUBQ 12/22/16 21:00 01/17/17 08:59 01/04/17 11:22 Hydroxyzine HCl (Atarax) 25 mg BID GT 12/22/16 18:00 01/17/17 08:59 01/04/17 10:56 Insulin Aspart (NovoLOG) AC+HS SUBQ 12/30/16 21:00 01/17/17 17:59 01/02/17 21:51 Ketorolac Tromethamine (Toradol 30mg) 15 mg Q6H PRN IV For Pain 01/02/17 21:00 01/07/17 20:59 01/04/17 01:42 Levothyroxine Sodium (Synthroid) 88 mcg ACBREAKFAST GT 12/29/16 06:30 01/28/17 06:29 01/04/17 05:49 Mirtazapine (Remeron) 15 mg BEDTIME GT 12/26/16 21:00 01/25/17 20:59 01/03/17 20:42 Nitroglycerin (Ntg) 0.4 mg Q5MIN X 3 DOSES PRN SL Prn Chest Pain 12/22/16 12:00 01/18/17 17:19 Ondansetron HCl (Zofran) 4 mg Q6H PRN IVP Nausea & Vomiting 12/22/16 12:00 01/16/17 11:59 Pioglitazone HCl (Actos) 15 mg DAILY GT 12/23/16 09:00 01/17/17 09:29 01/04/17 10:55 Polyethylene Glycol (Miralax) 17 gm DAILYPRN PRN ORAL Constipation 12/22/16 12:00 01/19/17 11:59 Sennosides (Senokot) 8.6 mg DAILY ORAL 01/03/17 21:00 02/02/17 20:59 01/04/17 11:23 JOSEPH PRYOR M.D. Jan 04, 2017 12:15
--- NOTE | 2017-01-04 17:42 | Diagnostic Imaging Report ---
Indication: Cough Technique: One view of the chest Comparison: 12/20/2016 Findings: Persistent elevation right hemidiaphragm. Bilateral diffuse interstitial disease appears identical to the previous study. No new infiltrates or definite focal airspace consolidation. No definite effusions. The heart size is normal. Left arm PICC or port catheter is again demonstrated. Surgical clips are seen in the upper abdomen. Top of an inferior vena cava filter is noted in the abdomen Impression: Bilateral diffuse interstitial disease. Similarity to prior exam of 12/20/2016 suggested this may represent chronic interstitial fibrosis. However, this possibility of acute interstitial disease also exists. Correlate with clinical findings
--- NOTE | 2017-01-04 21:55 | General Progress Note ---
Assessment/Plan Status: stable Assessment/Plan mdd cont current meds provided ro/st Subjective Date patient seen: Jan 04, 2017 Neurologic/Psychiatric: Reports: anxiety, depressed, emotional problems Allergies: Coded Allergies: ACETAMINOPHEN (Unverified Allergy, Unknown, 12/17/16) CODEINE (Unverified Allergy, Unknown, 03/04/14) IODINE (Unverified Allergy, Unknown, 12/17/16) Subjective pt is calm c/o long hospitalization Objective Last 24 Hour Vital Signs Date Time Temp Pulse Resp B/P (MAP) Pulse Ox O2 Delivery O2 Flow Rate FiO2 01/04/17 20:28 99 Nasal Cannula 2.0 28 01/04/17 20:28 Nasal Cannula 2.0 28 01/04/17 19:53 97.8 65 18 93/57 96 Nasal Cannula 01/04/17 16:00 97.7 62 18 126/73 98 Nasal Cannula 2.0 01/04/17 10:55 72 01/04/17 08:00 96.8 72 16 102/52 100 Nasal Cannula 2.0 01/04/17 04:12 64 99/52 01/04/17 03:36 97.5 66 20 87/48 97 Room Air 01/04/17 00:01 97.5 64 20 110/56 100 Room Air Intake and Output 01/04/17 01/05/17 19:00 07:00 Intake Total 360 ml Output Total 650 ml Balance -290 ml Intake Oral 360 ml Output Urine Total 650 ml Laboratory Tests 01/04/17 05:50: White Blood Count 7.8, Red Blood Count 4.38, Hemoglobin 12.7, Hematocrit 41.6, Mean Corpuscular Volume 95, Mean Corpuscular Hemoglobin 29.0, Mean Corpuscular Hemoglobin Concent 30.5L, Red Cell Distribution Width 15.1H, Platelet Count 346 , Mean Platelet Volume 7.2, Neutrophils (%) (Auto) 51.3, Lymphocytes (%) (Auto) 31.2, Monocytes (%) (Auto) 5.4, Eosinophils (%) (Auto) 9.9H, Basophils (%) (Auto ) 2.3H, Sodium Level 143, Potassium Level 4.1, Chloride Level 106, Carbon Dioxide Level 34H, Anion Gap 3L, Blood Urea Nitrogen 14, Creatinine 0.6, Estimat Glomerular Filtration Rate > 60, Glucose Level 82, Calcium Level 9.3 Height (Feet): 5 Height (Inches): 7.00 Weight (Pounds): 126 General Appearance: no apparent distress, alert, overweight Neurologic: alert, oriented x 3, responsive, depressed affect Kallie Fernandez M.D. Jan 04, 2017 21:55
[2017-01-04] MEDS: Dyna-Hex 2% Top Sol 2oz TOPIC SCH (22:04)
[2017-01-05 03:30] VITALS: BP 109/61
[2017-01-05] MEDS: NovoLOG Insulin Flexpen SUBQ SCH ×4 (06:30→21:00)
--- NOTE | 2017-01-05 07:10 | General Progress Note ---
Assessment/Plan Problem List: (1) Diabetes mellitus ICD Codes: E11.9 - Type 2 diabetes mellitus without complications SNOMED: 60490250 (2) Hypothyroidism ICD Codes: E03.9 - Hypothyroidism, unspecified SNOMED: 77240300 (3) COPD (chronic obstructive pulmonary disease) ICD Codes: J44.9 - Chronic obstructive pulmonary disease, unspecified SNOMED: 91770659 (4) CHF (congestive heart failure) ICD Codes: I50.9 - Heart failure, unspecified SNOMED: 95188369 Assessment/Plan continue Levothyroxine 88 mcg continue Actos 15 mg + SSI Subjective Allergies: Coded Allergies: ACETAMINOPHEN (Unverified Allergy, Unknown, 12/17/16) CODEINE (Unverified Allergy, Unknown, 03/04/14) IODINE (Unverified Allergy, Unknown, 12/17/16) All Systems: reviewed and negative except above Subjective events noted Objective Last 24 Hour Vital Signs Date Time Temp Pulse Resp B/P (MAP) Pulse Ox O2 Delivery O2 Flow Rate FiO2 01/05/17 03:30 97.7 60 18 109/61 97 Nasal Cannula 01/04/17 23:32 97.8 54 18 106/67 96 Nasal Cannula 01/04/17 20:28 99 Nasal Cannula 2.0 28 01/04/17 20:28 Nasal Cannula 2.0 28 01/04/17 19:53 97.8 65 18 93/57 96 Nasal Cannula 01/04/17 16:00 97.7 62 18 126/73 98 Nasal Cannula 2.0 01/04/17 10:55 72 01/04/17 08:00 96.8 72 16 102/52 100 Nasal Cannula 2.0 Height (Feet): 5 Height (Inches): 7.00 Weight (Pounds): 126 General Appearance: no apparent distress EENT: pale conjunctivae Neck: normal alignment Respiratory/Chest: decreased breath sounds Abdomen: normal bowel sounds Pelvis: normal external exam Edema: no edema noted Arm (L), no edema noted Arm (R), no edema noted Leg (L), no edema noted Leg (R), no edema noted Pedal (L), no edema noted Pedal (R), no edema noted Generalized Objective Current Medications Medications (Trade) Dose Ordered Sig/Sandra Route PRN Reason Start Time Stop Time Status Last Admin Dose Admin Al Hydroxide/Mg Hydroxide (Mylanta II) 30 ml Q6H PRN GT dyspepsia 12/22/16 12:00 01/16/17 11:59 12/27/16 21:50 Chlorhexidine Gluconate (Chioma-Hex 2%) 1 applic DAILY@2000 TOPIC 12/23/16 20:00 01/22/17 19:59 01/04/17 22:04 Dextrose (Dextrose 50%) STAT PRN IV Hypoglycemia 12/22/16 12:00 01/19/17 11:59 Digoxin (Lanoxin) 0.25 mg DAILY GT 12/23/16 09:00 01/17/17 09:29 01/04/17 10:55 Docusate Sodium (Colace) 200 mg TIDPRN PRN ORAL Constipation 2nd line agent 01/03/17 20:00 02/02/17 19:59 Gabapentin (Neurontin) 300 mg TID GT 12/22/16 13:00 01/18/17 13:59 01/04/17 18:17 Heparin Sodium (Porcine) (Heparin 5000 units/ml) 5,000 units EVERY 12 HOURS SUBQ 12/22/16 21:00 01/17/17 08:59 01/04/17 22:06 Hydroxyzine HCl (Atarax) 25 mg BID GT 12/22/16 18:00 01/17/17 08:59 01/04/17 18:18 Insulin Aspart (NovoLOG) AC+HS SUBQ 12/30/16 21:00 01/17/17 17:59 01/02/17 21:51 Ketorolac Tromethamine (Toradol 30mg) 15 mg Q6H PRN IV For Pain 01/02/17 21:00 01/07/17 20:59 01/04/17 01:42 Levothyroxine Sodium (Synthroid) 88 mcg ACBREAKFAST GT 12/29/16 06:30 01/28/17 06:29 01/05/17 06:57 Mirtazapine (Remeron) 15 mg BEDTIME GT 12/26/16 21:00 01/25/17 20:59 01/04/17 22:04 Nitroglycerin (Ntg) 0.4 mg Q5MIN X 3 DOSES PRN SL Prn Chest Pain 12/22/16 12:00 01/18/17 17:19 Ondansetron HCl (Zofran) 4 mg Q6H PRN IVP Nausea & Vomiting 12/22/16 12:00 01/16/17 11:59 Pioglitazone HCl (Actos) 15 mg DAILY GT 12/23/16 09:00 01/17/17 09:29 01/04/17 10:55 Polyethylene Glycol (Miralax) 17 gm DAILYPRN PRN ORAL Constipation 12/22/16 12:00 01/19/17 11:59 Sennosides (Senokot) 8.6 mg DAILY ORAL 01/03/17 21:00 02/02/17 20:59 01/04/17 11:23 Item Value Date Time Bedside Blood Glucose 81 mg/dl 01/05/17 0647 Bedside Blood Glucose 95 mg/dl 01/04/17 2100 Bedside Blood Glucose 109 mg/dl 01/04/17 1637 ANGEL RICHARDSON Jan 05, 2017 07:10
--- NOTE | 2017-01-05 07:10 | General Progress Note ---
Assessment/Plan Problem List: (1) Diabetes mellitus ICD Codes: E11.9 - Type 2 diabetes mellitus without complications SNOMED: 02934822 (2) Hypothyroidism ICD Codes: E03.9 - Hypothyroidism, unspecified SNOMED: 32644301 (3) COPD (chronic obstructive pulmonary disease) ICD Codes: J44.9 - Chronic obstructive pulmonary disease, unspecified SNOMED: 44516757 (4) CHF (congestive heart failure) ICD Codes: I50.9 - Heart failure, unspecified SNOMED: 93653764 Assessment/Plan continue Levothyroxine 88 mcg continue Actos 15 mg + SSI Subjective Allergies: Coded Allergies: ACETAMINOPHEN (Unverified Allergy, Unknown, 12/17/16) CODEINE (Unverified Allergy, Unknown, 03/04/14) IODINE (Unverified Allergy, Unknown, 12/17/16) All Systems: reviewed and negative except above Subjective events noted Objective Last 24 Hour Vital Signs Date Time Temp Pulse Resp B/P (MAP) Pulse Ox O2 Delivery O2 Flow Rate FiO2 01/05/17 03:30 97.7 60 18 109/61 97 Nasal Cannula 01/04/17 23:32 97.8 54 18 106/67 96 Nasal Cannula 01/04/17 20:28 99 Nasal Cannula 2.0 28 01/04/17 20:28 Nasal Cannula 2.0 28 01/04/17 19:53 97.8 65 18 93/57 96 Nasal Cannula 01/04/17 16:00 97.7 62 18 126/73 98 Nasal Cannula 2.0 01/04/17 10:55 72 01/04/17 08:00 96.8 72 16 102/52 100 Nasal Cannula 2.0 Height (Feet): 5 Height (Inches): 7.00 Weight (Pounds): 126 General Appearance: no apparent distress EENT: pale conjunctivae Neck: normal alignment Respiratory/Chest: decreased breath sounds Abdomen: normal bowel sounds Pelvis: normal external exam Edema: no edema noted Arm (L), no edema noted Arm (R), no edema noted Leg (L), no edema noted Leg (R), no edema noted Pedal (L), no edema noted Pedal (R), no edema noted Generalized Objective Current Medications Medications (Trade) Dose Ordered Sig/Sandra Route PRN Reason Start Time Stop Time Status Last Admin Dose Admin Al Hydroxide/Mg Hydroxide (Mylanta II) 30 ml Q6H PRN GT dyspepsia 12/22/16 12:00 01/16/17 11:59 12/27/16 21:50 Chlorhexidine Gluconate (Chioma-Hex 2%) 1 applic DAILY@2000 TOPIC 12/23/16 20:00 01/22/17 19:59 01/04/17 22:04 Dextrose (Dextrose 50%) STAT PRN IV Hypoglycemia 12/22/16 12:00 01/19/17 11:59 Digoxin (Lanoxin) 0.25 mg DAILY GT 12/23/16 09:00 01/17/17 09:29 01/04/17 10:55 Docusate Sodium (Colace) 200 mg TIDPRN PRN ORAL Constipation 2nd line agent 01/03/17 20:00 02/02/17 19:59 Gabapentin (Neurontin) 300 mg TID GT 12/22/16 13:00 01/18/17 13:59 01/04/17 18:17 Heparin Sodium (Porcine) (Heparin 5000 units/ml) 5,000 units EVERY 12 HOURS SUBQ 12/22/16 21:00 01/17/17 08:59 01/04/17 22:06 Hydroxyzine HCl (Atarax) 25 mg BID GT 12/22/16 18:00 01/17/17 08:59 01/04/17 18:18 Insulin Aspart (NovoLOG) AC+HS SUBQ 12/30/16 21:00 01/17/17 17:59 01/02/17 21:51 Ketorolac Tromethamine (Toradol 30mg) 15 mg Q6H PRN IV For Pain 01/02/17 21:00 01/07/17 20:59 01/04/17 01:42 Levothyroxine Sodium (Synthroid) 88 mcg ACBREAKFAST GT 12/29/16 06:30 01/28/17 06:29 01/05/17 06:57 Mirtazapine (Remeron) 15 mg BEDTIME GT 12/26/16 21:00 01/25/17 20:59 01/04/17 22:04 Nitroglycerin (Ntg) 0.4 mg Q5MIN X 3 DOSES PRN SL Prn Chest Pain 12/22/16 12:00 01/18/17 17:19 Ondansetron HCl (Zofran) 4 mg Q6H PRN IVP Nausea & Vomiting 12/22/16 12:00 01/16/17 11:59 Pioglitazone HCl (Actos) 15 mg DAILY GT 12/23/16 09:00 01/17/17 09:29 01/04/17 10:55 Polyethylene Glycol (Miralax) 17 gm DAILYPRN PRN ORAL Constipation 12/22/16 12:00 01/19/17 11:59 Sennosides (Senokot) 8.6 mg DAILY ORAL 01/03/17 21:00 02/02/17 20:59 01/04/17 11:23 Item Value Date Time Bedside Blood Glucose 81 mg/dl 01/05/17 0647 Bedside Blood Glucose 95 mg/dl 01/04/17 2100 Bedside Blood Glucose 109 mg/dl 01/04/17 1637 ANGEL RICHARDSON Jan 05, 2017 07:10
--- NOTE | 2017-01-05 07:10 | General Progress Note ---
Assessment/Plan Problem List: (1) Diabetes mellitus ICD Codes: E11.9 - Type 2 diabetes mellitus without complications SNOMED: 61582283 (2) Hypothyroidism ICD Codes: E03.9 - Hypothyroidism, unspecified SNOMED: 51127803 (3) COPD (chronic obstructive pulmonary disease) ICD Codes: J44.9 - Chronic obstructive pulmonary disease, unspecified SNOMED: 10285569 (4) CHF (congestive heart failure) ICD Codes: I50.9 - Heart failure, unspecified SNOMED: 87520920 Assessment/Plan continue Levothyroxine 88 mcg continue Actos 15 mg + SSI Subjective Allergies: Coded Allergies: ACETAMINOPHEN (Unverified Allergy, Unknown, 12/17/16) CODEINE (Unverified Allergy, Unknown, 03/04/14) IODINE (Unverified Allergy, Unknown, 12/17/16) All Systems: reviewed and negative except above Subjective events noted Objective Last 24 Hour Vital Signs Date Time Temp Pulse Resp B/P (MAP) Pulse Ox O2 Delivery O2 Flow Rate FiO2 01/05/17 03:30 97.7 60 18 109/61 97 Nasal Cannula 01/04/17 23:32 97.8 54 18 106/67 96 Nasal Cannula 01/04/17 20:28 99 Nasal Cannula 2.0 28 01/04/17 20:28 Nasal Cannula 2.0 28 01/04/17 19:53 97.8 65 18 93/57 96 Nasal Cannula 01/04/17 16:00 97.7 62 18 126/73 98 Nasal Cannula 2.0 01/04/17 10:55 72 01/04/17 08:00 96.8 72 16 102/52 100 Nasal Cannula 2.0 Height (Feet): 5 Height (Inches): 7.00 Weight (Pounds): 126 General Appearance: no apparent distress EENT: pale conjunctivae Neck: normal alignment Respiratory/Chest: decreased breath sounds Abdomen: normal bowel sounds Pelvis: normal external exam Edema: no edema noted Arm (L), no edema noted Arm (R), no edema noted Leg (L), no edema noted Leg (R), no edema noted Pedal (L), no edema noted Pedal (R), no edema noted Generalized Objective Current Medications Medications (Trade) Dose Ordered Sig/Sandra Route PRN Reason Start Time Stop Time Status Last Admin Dose Admin Al Hydroxide/Mg Hydroxide (Mylanta II) 30 ml Q6H PRN GT dyspepsia 12/22/16 12:00 01/16/17 11:59 12/27/16 21:50 Chlorhexidine Gluconate (Chioma-Hex 2%) 1 applic DAILY@2000 TOPIC 12/23/16 20:00 01/22/17 19:59 01/04/17 22:04 Dextrose (Dextrose 50%) STAT PRN IV Hypoglycemia 12/22/16 12:00 01/19/17 11:59 Digoxin (Lanoxin) 0.25 mg DAILY GT 12/23/16 09:00 01/17/17 09:29 01/04/17 10:55 Docusate Sodium (Colace) 200 mg TIDPRN PRN ORAL Constipation 2nd line agent 01/03/17 20:00 02/02/17 19:59 Gabapentin (Neurontin) 300 mg TID GT 12/22/16 13:00 01/18/17 13:59 01/04/17 18:17 Heparin Sodium (Porcine) (Heparin 5000 units/ml) 5,000 units EVERY 12 HOURS SUBQ 12/22/16 21:00 01/17/17 08:59 01/04/17 22:06 Hydroxyzine HCl (Atarax) 25 mg BID GT 12/22/16 18:00 01/17/17 08:59 01/04/17 18:18 Insulin Aspart (NovoLOG) AC+HS SUBQ 12/30/16 21:00 01/17/17 17:59 01/02/17 21:51 Ketorolac Tromethamine (Toradol 30mg) 15 mg Q6H PRN IV For Pain 01/02/17 21:00 01/07/17 20:59 01/04/17 01:42 Levothyroxine Sodium (Synthroid) 88 mcg ACBREAKFAST GT 12/29/16 06:30 01/28/17 06:29 01/05/17 06:57 Mirtazapine (Remeron) 15 mg BEDTIME GT 12/26/16 21:00 01/25/17 20:59 01/04/17 22:04 Nitroglycerin (Ntg) 0.4 mg Q5MIN X 3 DOSES PRN SL Prn Chest Pain 12/22/16 12:00 01/18/17 17:19 Ondansetron HCl (Zofran) 4 mg Q6H PRN IVP Nausea & Vomiting 12/22/16 12:00 01/16/17 11:59 Pioglitazone HCl (Actos) 15 mg DAILY GT 12/23/16 09:00 01/17/17 09:29 01/04/17 10:55 Polyethylene Glycol (Miralax) 17 gm DAILYPRN PRN ORAL Constipation 12/22/16 12:00 01/19/17 11:59 Sennosides (Senokot) 8.6 mg DAILY ORAL 01/03/17 21:00 02/02/17 20:59 01/04/17 11:23 Item Value Date Time Bedside Blood Glucose 81 mg/dl 01/05/17 0647 Bedside Blood Glucose 95 mg/dl 01/04/17 2100 Bedside Blood Glucose 109 mg/dl 01/04/17 1637 ANGEL RICHARDSON Jan 05, 2017 07:10
[2017-01-05 07:59] LABS: BASOPHILS % (AUTO) 2.3 % (0.0-2.0); EOSINOPHILS % (AUTO) 11.4 % (0.0-3.0); HEMATOCRIT 41.8 % (37.0-47.0); HEMOGLOBIN 12.7 G/DL (12.0-16.0); LYMPHOCYTES % (AUTO) 33.7 % (20.0-45.0); MEAN CORPUSCULAR VOLUME 96 FL (80-99); MONOCYTES % (AUTO) 7.1 % (1.0-10.0); NEUTROPHILS % (AUTO) 45.5 % (45.0-75.0); PLATELET COUNT 369 K/UL (150-450); RED BLOOD COUNT 4.37 M/UL (4.20-5.40); RED CELL DISTRIBUTION WIDTH 14.9 % (11.6-14.8); WHITE BLOOD COUNT 7.4 K/UL (4.8-10.8)
[2017-01-05 08:08] LABS: ANION GAP 4 mmol/L (5-15); BLOOD UREA NITROGEN 11 mg/dL (7-18); CALCIUM 9.4 MG/DL (8.5-10.1); CARBON DIOXIDE 33 MMOL/L (21-32); CHLORIDE 107 MMOL/L (98-107); CREATININE 0.5 MG/DL (0.55-1.30); POTASSIUM 3.9 MMOL/L (3.5-5.1); SODIUM 144 MMOL/L (136-145)
--- NOTE | 2017-01-05 08:24 | Pulmonology Progress Note ---
Assessment/Plan Assessment/Plan ASSESSMENT acute on chronic respiratory failure acute purulent bronchitis possible PNA, s/p Rx tracheostomy malfunctioning, s/p replacement of trach tube in ED COPD interstitial lung disease s/p decannulation hypothyroidism with elevated TSH dysphagia , G tube leaking G tube high aspiration risk depression sacrococcyx decub st 2 POA likely protein calorie malnutrition major depressive disorder PLAN OF CARE MS floor O2 HHN prn respiratory status stable after decannulation pulse ox stable on O2 via NC, no signs of respiratory distress sputum cx not collected, blood cx negative, stool C dif negative initially empiric abx for possible PNA, s/p rx a/tussive prn CXR with interstitial congestion leukocytosis resolved ID follows currently off abx, monitor clinically, no evidence of infection GT out - removed by GI BSSE and VSE done earlier , OK for quality of life to initiate diet as per ST recommendations with strict aspiration/reflux precautions and 1 to 1 supervision GI started on regular diet with texture modification as recommended by ST tolerates diet surgery follows, no need for surgical interventions DVT prophylaxis PT Rx continue TSH elevated, increase dose of levothyroxine Digoxin level stable BS management with SS of insulin and Actos, optimize as needed wound care as per wound nurse recommendations dietary eval noted, on dietary supplements as suggested psych follows per psych -no need for sitter , no need for psych hospital medical management with antidepressant GI eval appreciated for leaking G tube awaiting for dc to SNF, challenging placement case discussed and evaluated by supervising physician Subjective Allergies: Coded Allergies: ACETAMINOPHEN (Unverified Allergy, Unknown, 12/17/16) CODEINE (Unverified Allergy, Unknown, 03/04/14) IODINE (Unverified Allergy, Unknown, 12/17/16) Subjective no signs of respiratory distress on O2 via NC pulse ox stable GT out tolerates diet, no signs of aspiration awaiting for placement to SNF Objective Last 24 Hour Vital Signs Date Time Temp Pulse Resp B/P (MAP) Pulse Ox O2 Delivery O2 Flow Rate FiO2 01/05/17 03:30 97.7 60 18 109/61 97 Nasal Cannula 01/04/17 23:32 97.8 54 18 106/67 96 Nasal Cannula 01/04/17 20:28 99 Nasal Cannula 2.0 28 01/04/17 20:28 Nasal Cannula 2.0 28 01/04/17 19:53 97.8 65 18 93/57 96 Nasal Cannula 01/04/17 16:00 97.7 62 18 126/73 98 Nasal Cannula 2.0 01/04/17 10:55 72 Objective General Appearance: no acute distress, cachetic HEENT: normocephalic, atraumatic, anicteric Respiratory/Chest: lungs clear with moderate air exchange, no respiratory distress, no accessory muscle use, other - old trach site with Band-aid C/D/I Cardiovascular: normal rate, regular rhythm, no JVD Abdomen: normal bowel sounds, soft, non tender Neurologic/Psychiatric: abnormal gait, alert, normal mood/affect, w/chair bound Microbiology Date/Time Source Procedure Growth Status 01/02/17 22:28 Sputum Gram Stain - Final Complete 01/02/17 22:28 Sputum Culture - Final Staphylococcus Aureus Pseudomonas Aeruginosa Complete Laboratory Tests 01/05/17 05:35: White Blood Count 7.4, Red Blood Count 4.37, Hemoglobin 12.7, Hematocrit 41.8, Mean Corpuscular Volume 96, Mean Corpuscular Hemoglobin 29.0, Mean Corpuscular Hemoglobin Concent 30.4L, Red Cell Distribution Width 14.9H, Platelet Count 369 , Mean Platelet Volume 6.6, Neutrophils (%) (Auto) 45.5, Lymphocytes (%) (Auto) 33.7, Monocytes (%) (Auto) 7.1, Eosinophils (%) (Auto) 11.4H, Basophils (%) ( Auto) 2.3H, Sodium Level 144, Potassium Level 3.9, Chloride Level 107, Carbon Dioxide Level 33H, Anion Gap 4L, Blood Urea Nitrogen 11, Creatinine 0.5L, Estimat Glomerular Filtration Rate > 60, Glucose Level 87, Calcium Level 9.4 Current Medications Medications (Trade) Dose Ordered Sig/Sandra Route PRN Reason Start Time Stop Time Status Last Admin Dose Admin Al Hydroxide/Mg Hydroxide (Mylanta II) 30 ml Q6H PRN GT dyspepsia 12/22/16 12:00 01/16/17 11:59 12/27/16 21:50 Chlorhexidine Gluconate (Chioma-Hex 2%) 1 applic DAILY@1999 TOPIC 12/23/16 20:00 01/22/17 19:59 01/04/17 22:04 Dextrose (Dextrose 50%) STAT PRN IV Hypoglycemia 12/22/16 12:00 01/19/17 11:59 Digoxin (Lanoxin) 0.25 mg DAILY GT 12/23/16 09:00 01/17/17 09:29 01/04/17 10:55 Docusate Sodium (Colace) 200 mg TIDPRN PRN ORAL Constipation 2nd line agent 01/03/17 20:00 02/02/17 19:59 Gabapentin (Neurontin) 300 mg TID GT 12/22/16 13:00 01/18/17 13:59 01/04/17 18:17 Heparin Sodium (Porcine) (Heparin 5000 units/ml) 5,000 units EVERY 12 HOURS SUBQ 12/22/16 21:00 01/17/17 08:59 01/04/17 22:06 Hydroxyzine HCl (Atarax) 25 mg BID GT 12/22/16 18:00 01/17/17 08:59 01/04/17 18:18 Insulin Aspart (NovoLOG) AC+HS SUBQ 12/30/16 21:00 01/17/17 17:59 01/02/17 21:51 Ketorolac Tromethamine (Toradol 30mg) 15 mg Q6H PRN IV For Pain 01/02/17 21:00 01/07/17 20:59 01/04/17 01:42 Levothyroxine Sodium (Synthroid) 88 mcg ACBREAKFAST GT 12/29/16 06:30 01/28/17 06:29 01/05/17 06:57 Mirtazapine (Remeron) 15 mg BEDTIME GT 12/26/16 21:00 01/25/17 20:59 01/04/17 22:04 Nitroglycerin (Ntg) 0.4 mg Q5MIN X 3 DOSES PRN SL Prn Chest Pain 12/22/16 12:00 01/18/17 17:19 Ondansetron HCl (Zofran) 4 mg Q6H PRN IVP Nausea & Vomiting 12/22/16 12:00 01/16/17 11:59 Pioglitazone HCl (Actos) 15 mg DAILY GT 12/23/16 09:00 01/17/17 09:29 01/04/17 10:55 Polyethylene Glycol (Miralax) 17 gm DAILYPRN PRN ORAL Constipation 12/22/16 12:00 01/19/17 11:59 Sennosides (Senokot) 8.6 mg DAILY ORAL 01/03/17 21:00 02/02/17 20:59 01/04/17 11:23 Garfield (Komalgordon)Julianne NP Jan 05, 2017 08:24
[2017-01-05 08:55] VITALS: BP 104/58
[2017-01-05] MEDS: HydrOXYzine 25mg tab GT SCH ×2 (08:55→17:05)
[2017-01-05] MEDS: Ketorolac 30mg Inj IV PRN ×2 (08:55→22:31)
[2017-01-05] MEDS: Sennosides 8.6mg ORAL SCH (08:56)
[2017-01-05] MEDS: Heparin 5000 units/ml inj SUBQ SCH ×2 (08:58→22:14)
[2017-01-05] MEDS: Gabapentin 300 MG/6 ML Soln GT SCH ×3 (09:00→17:05)
[2017-01-05 12:19] VITALS: BP 94/56
--- NOTE | 2017-01-05 12:41 | Infectious Diseases Prog Note ---
Assessment/Plan Assessment/Plan A; Pneumonia s/p RX COPD DM Hypothyroidism P; observe off antibiotic Subjective ROS Limited/Unobtainable: No Respiratory: Reports: productive cough Gastrointestinal/Abdominal: Reports: no symptoms Genitourinary: Reports: no symptoms Allergies: Coded Allergies: ACETAMINOPHEN (Unverified Allergy, Unknown, 12/17/16) CODEINE (Unverified Allergy, Unknown, 03/04/14) IODINE (Unverified Allergy, Unknown, 12/17/16) Objective Vital Signs Last 24 Hour Vital Signs Date Time Temp Pulse Resp B/P (MAP) Pulse Ox O2 Delivery O2 Flow Rate FiO2 01/05/17 12:19 97.5 56 18 94/56 99 Nasal Cannula 01/05/17 09:25 97.7 01/05/17 08:56 61 01/05/17 08:55 97.0 61 15 104/58 100 Nasal Cannula 01/05/17 08:25 99 Nasal Cannula 2.0 28 01/05/17 08:25 Nasal Cannula 2.0 28 01/05/17 03:30 97.7 60 18 109/61 97 Nasal Cannula 01/04/17 23:32 97.8 54 18 106/67 96 Nasal Cannula 01/04/17 20:28 99 Nasal Cannula 2.0 28 01/04/17 20:28 Nasal Cannula 2.0 28 01/04/17 19:53 97.8 65 18 93/57 96 Nasal Cannula 01/04/17 16:00 97.7 62 18 126/73 98 Nasal Cannula 2.0 Height (Feet): 5 Height (Inches): 7.00 Weight (Pounds): 126 General Appearance: no acute distress HEENT: mucous membranes moist Respiratory/Chest: lungs clear Cardiovascular: normal rate Abdomen: soft, non tender Extremities: no edema Neurologic/Psychiatric: alert, responsive Microbiology Date/Time Source Procedure Growth Status 01/02/17 22:28 Sputum Gram Stain - Final Complete 01/02/17 22:28 Sputum Culture - Final Staphylococcus Aureus Pseudomonas Aeruginosa Complete Laboratory Tests Test 01/05/17 05:35 White Blood Count 7.4 K/UL (4.8-10.8) Red Blood Count 4.37 M/UL (4.20-5.40) Hemoglobin 12.7 G/DL (12.0-16.0) Hematocrit 41.8 % (37.0-47.0) Mean Corpuscular Volume 96 FL (80-99) Mean Corpuscular Hemoglobin 29.0 PG (27.0-31.0) Mean Corpuscular Hemoglobin Concent 30.4 G/DL (32.0-36.0) L Red Cell Distribution Width 14.9 % (11.6-14.8) H Platelet Count 369 K/UL (150-450) Mean Platelet Volume 6.6 FL (6.5-10.1) Neutrophils (%) (Auto) 45.5 % (45.0-75.0) Lymphocytes (%) (Auto) 33.7 % (20.0-45.0) Monocytes (%) (Auto) 7.1 % (1.0-10.0) Eosinophils (%) (Auto) 11.4 % (0.0-3.0) H Basophils (%) (Auto) 2.3 % (0.0-2.0) H Sodium Level 144 MMOL/L (136-145) Potassium Level 3.9 MMOL/L (3.5-5.1) Chloride Level 107 MMOL/L (98-107) Carbon Dioxide Level 33 MMOL/L (21-32) H Anion Gap 4 mmol/L (5-15) L Blood Urea Nitrogen 11 mg/dL (7-18) Creatinine 0.5 MG/DL (0.55-1.30) L Estimat Glomerular Filtration Rate > 60 mL/min (>60) Glucose Level 87 MG/DL (74-106) Calcium Level 9.4 MG/DL (8.5-10.1) Current Medications Medications (Trade) Dose Ordered Sig/Sandra Route PRN Reason Start Time Stop Time Status Last Admin Dose Admin Al Hydroxide/Mg Hydroxide (Mylanta II) 30 ml Q6H PRN GT dyspepsia 12/22/16 12:00 01/16/17 11:59 12/27/16 21:50 Chlorhexidine Gluconate (Chioma-Hex 2%) 1 applic DAILY@1999 TOPIC 12/23/16 20:00 01/22/17 19:59 01/04/17 22:04 Dextrose (Dextrose 50%) STAT PRN IV Hypoglycemia 12/22/16 12:00 01/19/17 11:59 Digoxin (Lanoxin) 0.25 mg DAILY GT 12/23/16 09:00 01/17/17 09:29 01/04/17 10:55 Docusate Sodium (Colace) 200 mg TIDPRN PRN ORAL Constipation 2nd line agent 01/03/17 20:00 02/02/17 19:59 Gabapentin (Neurontin) 300 mg TID GT 12/22/16 13:00 01/18/17 13:59 01/05/17 12:08 Heparin Sodium (Porcine) (Heparin 5000 units/ml) 5,000 units EVERY 12 HOURS SUBQ 12/22/16 21:00 01/17/17 08:59 01/05/17 08:58 Hydroxyzine HCl (Atarax) 25 mg BID GT 12/22/16 18:00 01/17/17 08:59 01/05/17 08:55 Insulin Aspart (NovoLOG) AC+HS SUBQ 12/30/16 21:00 01/17/17 17:59 01/02/17 21:51 Ketorolac Tromethamine (Toradol 30mg) 15 mg Q6H PRN IV For Pain 01/02/17 21:00 01/07/17 20:59 01/05/17 08:55 Levothyroxine Sodium (Synthroid) 88 mcg ACBREAKFAST GT 12/29/16 06:30 01/28/17 06:29 01/05/17 06:57 Mirtazapine (Remeron) 15 mg BEDTIME GT 12/26/16 21:00 01/25/17 20:59 01/04/17 22:04 Nitroglycerin (Ntg) 0.4 mg Q5MIN X 3 DOSES PRN SL Prn Chest Pain 12/22/16 12:00 01/18/17 17:19 Ondansetron HCl (Zofran) 4 mg Q6H PRN IVP Nausea & Vomiting 12/22/16 12:00 01/16/17 11:59 Pioglitazone HCl (Actos) 15 mg DAILY GT 12/23/16 09:00 01/17/17 09:29 01/05/17 08:55 Polyethylene Glycol (Miralax) 17 gm DAILYPRN PRN ORAL Constipation 12/22/16 12:00 01/19/17 11:59 Sennosides (Senokot) 8.6 mg DAILY ORAL 01/03/17 21:00 02/02/17 20:59 01/04/17 11:23 BHARGAVI DIMAS Jan 05, 2017 12:41
[2017-01-05 16:00] VITALS: BP 101/58
[2017-01-05 20:00] VITALS: BP 127/68
[2017-01-05] MEDS: Dyna-Hex 2% Top Sol 2oz TOPIC SCH (22:04)
--- NOTE | 2017-01-05 23:01 | General Progress Note ---
Assessment/Plan Status: stable Assessment/Plan mdd cont current meds provided ro/st Subjective Neurologic/Psychiatric: Reports: anxiety, depressed, emotional problems Allergies: Coded Allergies: ACETAMINOPHEN (Unverified Allergy, Unknown, 12/17/16) CODEINE (Unverified Allergy, Unknown, 03/04/14) IODINE (Unverified Allergy, Unknown, 12/17/16) Subjective pt is calm c/o long hospitalization Objective Last 24 Hour Vital Signs Date Time Temp Pulse Resp B/P (MAP) Pulse Ox O2 Delivery O2 Flow Rate FiO2 01/05/17 16:00 97.8 60 19 101/58 100 Nasal Cannula 01/05/17 12:19 97.5 56 18 94/56 99 Nasal Cannula 01/05/17 09:25 97.7 01/05/17 08:56 61 01/05/17 08:55 97.0 61 15 104/58 100 Nasal Cannula 01/05/17 08:25 99 Nasal Cannula 2.0 28 01/05/17 08:25 Nasal Cannula 2.0 28 01/05/17 03:30 97.7 60 18 109/61 97 Nasal Cannula 01/04/17 23:32 97.8 54 18 106/67 96 Nasal Cannula Intake and Output 01/05/17 01/06/17 19:00 07:00 Output Total 200 ml Balance -200 ml Output Urine Total 200 ml # Bowel Movements 3 Laboratory Tests 01/05/17 05:35: White Blood Count 7.4, Red Blood Count 4.37, Hemoglobin 12.7, Hematocrit 41.8, Mean Corpuscular Volume 96, Mean Corpuscular Hemoglobin 29.0, Mean Corpuscular Hemoglobin Concent 30.4L, Red Cell Distribution Width 14.9H, Platelet Count 369 , Mean Platelet Volume 6.6, Neutrophils (%) (Auto) 45.5, Lymphocytes (%) (Auto) 33.7, Monocytes (%) (Auto) 7.1, Eosinophils (%) (Auto) 11.4H, Basophils (%) ( Auto) 2.3H, Sodium Level 144, Potassium Level 3.9, Chloride Level 107, Carbon Dioxide Level 33H, Anion Gap 4L, Blood Urea Nitrogen 11, Creatinine 0.5L, Estimat Glomerular Filtration Rate > 60, Glucose Level 87, Calcium Level 9.4 Height (Feet): 5 Height (Inches): 7.00 Weight (Pounds): 126 General Appearance: no apparent distress, alert, overweight Neurologic: alert, oriented x 3, responsive, depressed affect Kallie Fernandez M.D. Jan 05, 2017 23:01
[2017-01-06] VITALS: BP 99/59
[2017-01-06 04:00] VITALS: BP 105/54
[2017-01-06] MEDS: NovoLOG Insulin Flexpen SUBQ SCH ×4 (06:30→21:00)
[2017-01-06 08:06] VITALS: BP 97/55
--- NOTE | 2017-01-06 08:32 | Pulmonology Progress Note ---
Assessment/Plan Assessment/Plan ASSESSMENT acute on chronic respiratory failure acute purulent bronchitis possible PNA, s/p Rx tracheostomy malfunctioning, s/p replacement of trach tube in ED COPD interstitial lung disease s/p decannulation hypothyroidism with elevated TSH dysphagia , G tube leaking G tube high aspiration risk depression sacrococcyx decub st 2 POA likely protein calorie malnutrition major depressive disorder PLAN OF CARE [facility] floor O2 HHN prn respiratory status stable after decannulation pulse ox stable on O2 via NC, no signs of respiratory distress sputum cx not collected, blood cx negative, stool C dif negative initially empiric abx for possible PNA, s/p rx a/tussive prn CXR with interstitial congestion leukocytosis resolved ID follows currently off abx, monitor clinically, no evidence of infection GT out - removed by GI BSSE and VSE done earlier , OK for quality of life to initiate diet as per ST recommendations with strict aspiration/reflux precautions and 1 to 1 supervision GI started on regular diet with texture modification as recommended by tolerates diet surgery follows, no need for surgical interventions DVT prophylaxis PT Rx continue TSH elevated, increase dose of levothyroxine Digoxin level stable BS management with SS of insulin and Actos, optimize as needed wound care as per wound nurse recommendations dietary eval noted, on dietary supplements as suggested psych follows per psych -no need for sitter , no need for psych hospital medical management with antidepressant GI eval appreciated for leaking G tube awaiting for dc to SNF, ( w/chair bound) challenging placement case discussed and evaluated by supervising physician Subjective Allergies: Coded Allergies: ACETAMINOPHEN (Unverified Allergy, Unknown, 12/17/16) CODEINE (Unverified Allergy, Unknown, 03/04/14) IODINE (Unverified Allergy, Unknown, 12/17/16) Subjective no signs of respiratory distress on O2 via NC pulse ox stable GT out tolerates diet, no signs of aspiration awaiting for placement to SNF w/chair bound Objective Last 24 Hour Vital Signs Date Time Temp Pulse Resp B/P (MAP) Pulse Ox O2 Delivery O2 Flow Rate FiO2 01/06/17 08:06 97.0 62 18 97/55 98 Nasal Cannula 2.0 01/06/17 04:00 97.1 66 18 105/54 95 Nasal Cannula 2.0 01/06/17 00:00 97.9 61 18 99/59 95 Nasal Cannula 2.0 01/05/17 23:01 97.1 01/05/17 20:00 97.1 64 18 127/68 98 Nasal Cannula 2.0 01/05/17 16:00 97.8 60 19 101/58 100 Nasal Cannula 01/05/17 12:19 97.5 56 18 94/56 99 Nasal Cannula 01/05/17 08:56 61 01/05/17 08:55 97.0 61 15 104/58 100 Nasal Cannula Objective General Appearance: no acute distress, cachetic HEENT: normocephalic, atraumatic, anicteric Respiratory/Chest: lungs clear with moderate air exchange, no respiratory distress, no accessory muscle use, other - old trach site with Band-aid C/D/I Cardiovascular: normal rate, regular rhythm, no JVD Abdomen: normal bowel sounds, soft, non tender Neurologic/Psychiatric: abnormal gait, alert, normal mood/affect, w/chair bound Current Medications Medications (Trade) Dose Ordered Sig/Sandra Route PRN Reason Start Time Stop Time Status Last Admin Dose Admin Al Hydroxide/Mg Hydroxide (Mylanta II) 30 ml Q6H PRN GT dyspepsia 12/22/16 12:00 01/16/17 11:59 12/27/16 21:50 Chlorhexidine Gluconate (Chioma-Hex 2%) 1 applic DAILY@1999 TOPIC 12/23/16 20:00 01/22/17 19:59 01/05/17 22:04 Dextrose (Dextrose 50%) STAT PRN IV Hypoglycemia 12/22/16 12:00 01/19/17 11:59 Digoxin (Lanoxin) 0.25 mg DAILY GT 12/23/16 09:00 01/17/17 09:29 01/04/17 10:55 Docusate Sodium (Colace) 200 mg TIDPRN PRN ORAL Constipation 2nd line agent 01/03/17 20:00 02/02/17 19:59 Gabapentin (Neurontin) 300 mg TID GT 12/22/16 13:00 01/18/17 13:59 01/05/17 17:05 Heparin Sodium (Porcine) (Heparin 5000 units/ml) 5,000 units EVERY 12 HOURS SUBQ 12/22/16 21:00 01/17/17 08:59 01/05/17 22:14 Hydroxyzine HCl (Atarax) 25 mg BID GT 12/22/16 18:00 01/17/17 08:59 01/05/17 17:05 Insulin Aspart (NovoLOG) AC+HS SUBQ 12/30/16 21:00 01/17/17 17:59 01/02/17 21:51 Ketorolac Tromethamine (Toradol 30mg) 15 mg Q6H PRN IV For Pain 01/02/17 21:00 01/07/17 20:59 01/05/17 22:31 Levothyroxine Sodium (Synthroid) 88 mcg ACBREAKFAST GT 12/29/16 06:30 01/28/17 06:29 01/06/17 06:31 Mirtazapine (Remeron) 15 mg BEDTIME GT 12/26/16 21:00 01/25/17 20:59 01/05/17 22:04 Nitroglycerin (Ntg) 0.4 mg Q5MIN X 3 DOSES PRN SL Prn Chest Pain 12/22/16 12:00 01/18/17 17:19 Ondansetron HCl (Zofran) 4 mg Q6H PRN IVP Nausea & Vomiting 12/22/16 12:00 01/16/17 11:59 Pioglitazone HCl (Actos) 15 mg DAILY GT 12/23/16 09:00 01/17/17 09:29 01/05/17 08:55 Polyethylene Glycol (Miralax) 17 gm DAILYPRN PRN ORAL Constipation 12/22/16 12:00 01/19/17 11:59 Sennosides (Senokot) 8.6 mg DAILY ORAL 01/03/17 21:00 02/02/17 20:59 01/04/17 11:23 Julianne Merrill NP ([facility]) Jan 06, 2017 08:32
[2017-01-06] MEDS: Ketorolac 30mg Inj IV PRN ×2 (09:21→18:47)
[2017-01-06] MEDS: Gabapentin 300 MG/6 ML Soln GT SCH ×3 (09:24→17:39)
[2017-01-06] MEDS: Sennosides 8.6mg ORAL SCH (09:24)
[2017-01-06] MEDS: HydrOXYzine 25mg tab GT SCH ×2 (09:24→17:39)
[2017-01-06] MEDS: Heparin 5000 units/ml inj SUBQ SCH ×2 (09:30→21:21)
--- NOTE | 2017-01-06 10:41 | Infectious Diseases Prog Note ---
Assessment/Plan Assessment/Plan A; Pneumonia s/p RX COPD DM Hypothyroidism P; observe off antibiotic Subjective ROS Limited/Unobtainable: Yes Allergies: Coded Allergies: ACETAMINOPHEN (Unverified Allergy, Unknown, 12/17/16) CODEINE (Unverified Allergy, Unknown, 03/04/14) IODINE (Unverified Allergy, Unknown, 12/17/16) Objective Vital Signs Last 24 Hour Vital Signs Date Time Temp Pulse Resp B/P (MAP) Pulse Ox O2 Delivery O2 Flow Rate FiO2 01/06/17 09:30 62 01/06/17 08:06 97.0 62 18 97/55 98 Nasal Cannula 2.0 01/06/17 04:00 97.1 66 18 105/54 95 Nasal Cannula 2.0 01/06/17 00:00 97.9 61 18 99/59 95 Nasal Cannula 2.0 01/05/17 23:01 97.1 01/05/17 20:00 97.1 64 18 127/68 98 Nasal Cannula 2.0 01/05/17 16:00 97.8 60 19 101/58 100 Nasal Cannula 01/05/17 12:19 97.5 56 18 94/56 99 Nasal Cannula Height (Feet): 5 Height (Inches): 7.00 Weight (Pounds): 126 General Appearance: no acute distress HEENT: mucous membranes moist Respiratory/Chest: lungs clear Cardiovascular: normal rate Abdomen: soft, non tender Extremities: no edema Neurologic/Psychiatric: other - sleeping Current Medications Medications (Trade) Dose Ordered Sig/Sandra Route PRN Reason Start Time Stop Time Status Last Admin Dose Admin Al Hydroxide/Mg Hydroxide (Mylanta II) 30 ml Q6H PRN GT dyspepsia 12/22/16 12:00 01/16/17 11:59 12/27/16 21:50 Chlorhexidine Gluconate (Chioma-Hex 2%) 1 applic DAILY@1999 TOPIC 12/23/16 20:00 01/22/17 19:59 01/05/17 22:04 Dextrose (Dextrose 50%) STAT PRN IV Hypoglycemia 12/22/16 12:00 01/19/17 11:59 Digoxin (Lanoxin) 0.25 mg DAILY GT 12/23/16 09:00 01/17/17 09:29 01/04/17 10:55 Docusate Sodium (Colace) 200 mg TIDPRN PRN ORAL Constipation 2nd line agent 01/03/17 20:00 02/02/17 19:59 Gabapentin (Neurontin) 300 mg TID GT 12/22/16 13:00 01/18/17 13:59 01/06/17 09:24 Heparin Sodium (Porcine) (Heparin 5000 units/ml) 5,000 units EVERY 12 HOURS SUBQ 12/22/16 21:00 01/17/17 08:59 01/06/17 09:30 Hydroxyzine HCl (Atarax) 25 mg BID GT 12/22/16 18:00 01/17/17 08:59 01/06/17 09:24 Insulin Aspart (NovoLOG) AC+HS SUBQ 12/30/16 21:00 01/17/17 17:59 01/02/17 21:51 Ketorolac Tromethamine (Toradol 30mg) 15 mg Q6H PRN IV For Pain 01/02/17 21:00 01/07/17 20:59 01/06/17 09:21 Levothyroxine Sodium (Synthroid) 88 mcg ACBREAKFAST GT 12/29/16 06:30 01/28/17 06:29 01/06/17 06:31 Mirtazapine (Remeron) 15 mg BEDTIME GT 12/26/16 21:00 01/25/17 20:59 01/05/17 22:04 Nitroglycerin (Ntg) 0.4 mg Q5MIN X 3 DOSES PRN SL Prn Chest Pain 12/22/16 12:00 01/18/17 17:19 Ondansetron HCl (Zofran) 4 mg Q6H PRN IVP Nausea & Vomiting 12/22/16 12:00 01/16/17 11:59 Pioglitazone HCl (Actos) 15 mg DAILY GT 12/23/16 09:00 01/17/17 09:29 01/06/17 09:24 Polyethylene Glycol (Miralax) 17 gm DAILYPRN PRN ORAL Constipation 12/22/16 12:00 01/19/17 11:59 Sennosides (Senokot) 8.6 mg DAILY ORAL 01/03/17 21:00 02/02/17 20:59 01/06/17 09:24 BHARGAVI DIMAS Jan 06, 2017 10:41
[2017-01-06 16:00] VITALS: BP 95/40
--- NOTE | 2017-01-06 16:03 | General Progress Note ---
Assessment/Plan Problem List: (1) Diabetes mellitus ICD Codes: E11.9 - Type 2 diabetes mellitus without complications SNOMED: 38644213 (2) Hypothyroidism ICD Codes: E03.9 - Hypothyroidism, unspecified SNOMED: 65253853 (3) COPD (chronic obstructive pulmonary disease) ICD Codes: J44.9 - Chronic obstructive pulmonary disease, unspecified SNOMED: 63083607 (4) CHF (congestive heart failure) ICD Codes: I50.9 - Heart failure, unspecified SNOMED: 55557018 Assessment/Plan continue Levothyroxine 88 mcg continue Actos 15 mg + SSI Subjective ROS Limited/Unobtainable: Yes Allergies: Coded Allergies: ACETAMINOPHEN (Unverified Allergy, Unknown, 12/17/16) CODEINE (Unverified Allergy, Unknown, 03/04/14) IODINE (Unverified Allergy, Unknown, 12/17/16) Subjective events noted Objective Last 24 Hour Vital Signs Date Time Temp Pulse Resp B/P (MAP) Pulse Ox O2 Delivery O2 Flow Rate FiO2 01/06/17 09:30 62 01/06/17 08:06 97.0 62 18 97/55 98 Nasal Cannula 2.0 01/06/17 04:00 97.1 66 18 105/54 95 Nasal Cannula 2.0 01/06/17 00:00 97.9 61 18 99/59 95 Nasal Cannula 2.0 01/05/17 23:01 97.1 01/05/17 20:00 97.1 64 18 127/68 98 Nasal Cannula 2.0 Intake and Output 01/06/17 01/07/17 19:00 07:00 Intake Total 240 ml Balance 240 ml Intake Oral 240 ml Height (Feet): 5 Height (Inches): 7.00 Weight (Pounds): 126 General Appearance: no apparent distress Neck: normal alignment Cardiovascular: regular rhythm Respiratory/Chest: decreased breath sounds Abdomen: normal bowel sounds Pelvis: normal external exam Edema: no edema noted Arm (L), no edema noted Arm (R), no edema noted Leg (L), no edema noted Leg (R), no edema noted Pedal (L), no edema noted Pedal (R), no edema noted Generalized Objective Current Medications Medications (Trade) Dose Ordered Sig/Sandra Route PRN Reason Start Time Stop Time Status Last Admin Dose Admin Al Hydroxide/Mg Hydroxide (Mylanta II) 30 ml Q6H PRN GT dyspepsia 12/22/16 12:00 01/16/17 11:59 12/27/16 21:50 Chlorhexidine Gluconate (Chioma-Hex 2%) 1 applic DAILY@2000 TOPIC 12/23/16 20:00 01/22/17 19:59 01/05/17 22:04 Dextrose (Dextrose 50%) STAT PRN IV Hypoglycemia 12/22/16 12:00 01/19/17 11:59 Digoxin (Lanoxin) 0.25 mg DAILY GT 12/23/16 09:00 01/17/17 09:29 01/04/17 10:55 Docusate Sodium (Colace) 200 mg TIDPRN PRN ORAL Constipation 2nd line agent 01/03/17 20:00 02/02/17 19:59 Gabapentin (Neurontin) 300 mg TID GT 12/22/16 13:00 01/18/17 13:59 01/06/17 13:19 Heparin Sodium (Porcine) (Heparin 5000 units/ml) 5,000 units EVERY 12 HOURS SUBQ 12/22/16 21:00 01/17/17 08:59 01/06/17 09:30 Hydroxyzine HCl (Atarax) 25 mg BID GT 12/22/16 18:00 01/17/17 08:59 01/06/17 09:24 Insulin Aspart (NovoLOG) AC+HS SUBQ 12/30/16 21:00 01/17/17 17:59 01/02/17 21:51 Ketorolac Tromethamine (Toradol 30mg) 15 mg Q6H PRN IV For Pain 01/02/17 21:00 01/07/17 20:59 01/06/17 09:21 Levothyroxine Sodium (Synthroid) 88 mcg ACBREAKFAST GT 12/29/16 06:30 01/28/17 06:29 01/06/17 06:31 Mirtazapine (Remeron) 15 mg BEDTIME GT 12/26/16 21:00 01/25/17 20:59 01/05/17 22:04 Nitroglycerin (Ntg) 0.4 mg Q5MIN X 3 DOSES PRN SL Prn Chest Pain 12/22/16 12:00 01/18/17 17:19 Ondansetron HCl (Zofran) 4 mg Q6H PRN IVP Nausea & Vomiting 12/22/16 12:00 01/16/17 11:59 Pioglitazone HCl (Actos) 15 mg DAILY GT 12/23/16 09:00 01/17/17 09:29 01/06/17 09:24 Polyethylene Glycol (Miralax) 17 gm DAILYPRN PRN ORAL Constipation 12/22/16 12:00 01/19/17 11:59 Sennosides (Senokot) 8.6 mg DAILY ORAL 01/03/17 21:00 02/02/17 20:59 01/06/17 09:24 Item Value Date Time Bedside Blood Glucose 77 mg/dl 01/06/17 0634 Bedside Blood Glucose 97 mg/dl 01/05/17 2100 ANGEL RICHARDSON Jan 06, 2017 16:03
--- NOTE | 2017-01-06 16:03 | General Progress Note ---
Assessment/Plan Problem List: (1) Diabetes mellitus ICD Codes: E11.9 - Type 2 diabetes mellitus without complications SNOMED: 33955493 (2) Hypothyroidism ICD Codes: E03.9 - Hypothyroidism, unspecified SNOMED: 78872995 (3) COPD (chronic obstructive pulmonary disease) ICD Codes: J44.9 - Chronic obstructive pulmonary disease, unspecified SNOMED: 56821058 (4) CHF (congestive heart failure) ICD Codes: I50.9 - Heart failure, unspecified SNOMED: 57149355 Assessment/Plan continue Levothyroxine 88 mcg continue Actos 15 mg + SSI Subjective ROS Limited/Unobtainable: Yes Allergies: Coded Allergies: ACETAMINOPHEN (Unverified Allergy, Unknown, 12/17/16) CODEINE (Unverified Allergy, Unknown, 03/04/14) IODINE (Unverified Allergy, Unknown, 12/17/16) Subjective events noted Objective Last 24 Hour Vital Signs Date Time Temp Pulse Resp B/P (MAP) Pulse Ox O2 Delivery O2 Flow Rate FiO2 01/06/17 09:30 62 01/06/17 08:06 97.0 62 18 97/55 98 Nasal Cannula 2.0 01/06/17 04:00 97.1 66 18 105/54 95 Nasal Cannula 2.0 01/06/17 00:00 97.9 61 18 99/59 95 Nasal Cannula 2.0 01/05/17 23:01 97.1 01/05/17 20:00 97.1 64 18 127/68 98 Nasal Cannula 2.0 Intake and Output 01/06/17 01/07/17 19:00 07:00 Intake Total 240 ml Balance 240 ml Intake Oral 240 ml Height (Feet): 5 Height (Inches): 7.00 Weight (Pounds): 126 General Appearance: no apparent distress Neck: normal alignment Cardiovascular: regular rhythm Respiratory/Chest: decreased breath sounds Abdomen: normal bowel sounds Pelvis: normal external exam Edema: no edema noted Arm (L), no edema noted Arm (R), no edema noted Leg (L), no edema noted Leg (R), no edema noted Pedal (L), no edema noted Pedal (R), no edema noted Generalized Objective Current Medications Medications (Trade) Dose Ordered Sig/Sandra Route PRN Reason Start Time Stop Time Status Last Admin Dose Admin Al Hydroxide/Mg Hydroxide (Mylanta II) 30 ml Q6H PRN GT dyspepsia 12/22/16 12:00 01/16/17 11:59 12/27/16 21:50 Chlorhexidine Gluconate (Chioma-Hex 2%) 1 applic DAILY@2000 TOPIC 12/23/16 20:00 01/22/17 19:59 01/05/17 22:04 Dextrose (Dextrose 50%) STAT PRN IV Hypoglycemia 12/22/16 12:00 01/19/17 11:59 Digoxin (Lanoxin) 0.25 mg DAILY GT 12/23/16 09:00 01/17/17 09:29 01/04/17 10:55 Docusate Sodium (Colace) 200 mg TIDPRN PRN ORAL Constipation 2nd line agent 01/03/17 20:00 02/02/17 19:59 Gabapentin (Neurontin) 300 mg TID GT 12/22/16 13:00 01/18/17 13:59 01/06/17 13:19 Heparin Sodium (Porcine) (Heparin 5000 units/ml) 5,000 units EVERY 12 HOURS SUBQ 12/22/16 21:00 01/17/17 08:59 01/06/17 09:30 Hydroxyzine HCl (Atarax) 25 mg BID GT 12/22/16 18:00 01/17/17 08:59 01/06/17 09:24 Insulin Aspart (NovoLOG) AC+HS SUBQ 12/30/16 21:00 01/17/17 17:59 01/02/17 21:51 Ketorolac Tromethamine (Toradol 30mg) 15 mg Q6H PRN IV For Pain 01/02/17 21:00 01/07/17 20:59 01/06/17 09:21 Levothyroxine Sodium (Synthroid) 88 mcg ACBREAKFAST GT 12/29/16 06:30 01/28/17 06:29 01/06/17 06:31 Mirtazapine (Remeron) 15 mg BEDTIME GT 12/26/16 21:00 01/25/17 20:59 01/05/17 22:04 Nitroglycerin (Ntg) 0.4 mg Q5MIN X 3 DOSES PRN SL Prn Chest Pain 12/22/16 12:00 01/18/17 17:19 Ondansetron HCl (Zofran) 4 mg Q6H PRN IVP Nausea & Vomiting 12/22/16 12:00 01/16/17 11:59 Pioglitazone HCl (Actos) 15 mg DAILY GT 12/23/16 09:00 01/17/17 09:29 01/06/17 09:24 Polyethylene Glycol (Miralax) 17 gm DAILYPRN PRN ORAL Constipation 12/22/16 12:00 01/19/17 11:59 Sennosides (Senokot) 8.6 mg DAILY ORAL 01/03/17 21:00 02/02/17 20:59 01/06/17 09:24 Item Value Date Time Bedside Blood Glucose 77 mg/dl 01/06/17 0634 Bedside Blood Glucose 97 mg/dl 01/05/17 2100 ANGEL RICHARDSON Jan 06, 2017 16:03
--- NOTE | 2017-01-06 16:03 | General Progress Note ---
Assessment/Plan Problem List: (1) Diabetes mellitus ICD Codes: E11.9 - Type 2 diabetes mellitus without complications SNOMED: 24633571 (2) Hypothyroidism ICD Codes: E03.9 - Hypothyroidism, unspecified SNOMED: 46590840 (3) COPD (chronic obstructive pulmonary disease) ICD Codes: J44.9 - Chronic obstructive pulmonary disease, unspecified SNOMED: 54242276 (4) CHF (congestive heart failure) ICD Codes: I50.9 - Heart failure, unspecified SNOMED: 16051868 Assessment/Plan continue Levothyroxine 88 mcg continue Actos 15 mg + SSI Subjective ROS Limited/Unobtainable: Yes Allergies: Coded Allergies: ACETAMINOPHEN (Unverified Allergy, Unknown, 12/17/16) CODEINE (Unverified Allergy, Unknown, 03/04/14) IODINE (Unverified Allergy, Unknown, 12/17/16) Subjective events noted Objective Last 24 Hour Vital Signs Date Time Temp Pulse Resp B/P (MAP) Pulse Ox O2 Delivery O2 Flow Rate FiO2 01/06/17 09:30 62 01/06/17 08:06 97.0 62 18 97/55 98 Nasal Cannula 2.0 01/06/17 04:00 97.1 66 18 105/54 95 Nasal Cannula 2.0 01/06/17 00:00 97.9 61 18 99/59 95 Nasal Cannula 2.0 01/05/17 23:01 97.1 01/05/17 20:00 97.1 64 18 127/68 98 Nasal Cannula 2.0 Intake and Output 01/06/17 01/07/17 19:00 07:00 Intake Total 240 ml Balance 240 ml Intake Oral 240 ml Height (Feet): 5 Height (Inches): 7.00 Weight (Pounds): 126 General Appearance: no apparent distress Neck: normal alignment Cardiovascular: regular rhythm Respiratory/Chest: decreased breath sounds Abdomen: normal bowel sounds Pelvis: normal external exam Edema: no edema noted Arm (L), no edema noted Arm (R), no edema noted Leg (L), no edema noted Leg (R), no edema noted Pedal (L), no edema noted Pedal (R), no edema noted Generalized Objective Current Medications Medications (Trade) Dose Ordered Sig/Sandra Route PRN Reason Start Time Stop Time Status Last Admin Dose Admin Al Hydroxide/Mg Hydroxide (Mylanta II) 30 ml Q6H PRN GT dyspepsia 12/22/16 12:00 01/16/17 11:59 12/27/16 21:50 Chlorhexidine Gluconate (Chioma-Hex 2%) 1 applic DAILY@2000 TOPIC 12/23/16 20:00 01/22/17 19:59 01/05/17 22:04 Dextrose (Dextrose 50%) STAT PRN IV Hypoglycemia 12/22/16 12:00 01/19/17 11:59 Digoxin (Lanoxin) 0.25 mg DAILY GT 12/23/16 09:00 01/17/17 09:29 01/04/17 10:55 Docusate Sodium (Colace) 200 mg TIDPRN PRN ORAL Constipation 2nd line agent 01/03/17 20:00 02/02/17 19:59 Gabapentin (Neurontin) 300 mg TID GT 12/22/16 13:00 01/18/17 13:59 01/06/17 13:19 Heparin Sodium (Porcine) (Heparin 5000 units/ml) 5,000 units EVERY 12 HOURS SUBQ 12/22/16 21:00 01/17/17 08:59 01/06/17 09:30 Hydroxyzine HCl (Atarax) 25 mg BID GT 12/22/16 18:00 01/17/17 08:59 01/06/17 09:24 Insulin Aspart (NovoLOG) AC+HS SUBQ 12/30/16 21:00 01/17/17 17:59 01/02/17 21:51 Ketorolac Tromethamine (Toradol 30mg) 15 mg Q6H PRN IV For Pain 01/02/17 21:00 01/07/17 20:59 01/06/17 09:21 Levothyroxine Sodium (Synthroid) 88 mcg ACBREAKFAST GT 12/29/16 06:30 01/28/17 06:29 01/06/17 06:31 Mirtazapine (Remeron) 15 mg BEDTIME GT 12/26/16 21:00 01/25/17 20:59 01/05/17 22:04 Nitroglycerin (Ntg) 0.4 mg Q5MIN X 3 DOSES PRN SL Prn Chest Pain 12/22/16 12:00 01/18/17 17:19 Ondansetron HCl (Zofran) 4 mg Q6H PRN IVP Nausea & Vomiting 12/22/16 12:00 01/16/17 11:59 Pioglitazone HCl (Actos) 15 mg DAILY GT 12/23/16 09:00 01/17/17 09:29 01/06/17 09:24 Polyethylene Glycol (Miralax) 17 gm DAILYPRN PRN ORAL Constipation 12/22/16 12:00 01/19/17 11:59 Sennosides (Senokot) 8.6 mg DAILY ORAL 01/03/17 21:00 02/02/17 20:59 01/06/17 09:24 Item Value Date Time Bedside Blood Glucose 77 mg/dl 01/06/17 0634 Bedside Blood Glucose 97 mg/dl 01/05/17 2100 ANGEL RICHARDSON Jan 06, 2017 16:03
[2017-01-06 19:54] VITALS: BP 122/54
[2017-01-06] MEDS: Dyna-Hex 2% Top Sol 2oz TOPIC SCH (21:20)
[2017-01-06 23:42] VITALS: BP 95/47
--- NOTE | 2017-01-06 23:53 | General Progress Note ---
Assessment/Plan Assessment/Plan mdd cont current meds provided ro/st Subjective Allergies: Coded Allergies: ACETAMINOPHEN (Unverified Allergy, Unknown, 12/17/16) CODEINE (Unverified Allergy, Unknown, 03/04/14) IODINE (Unverified Allergy, Unknown, 12/17/16) Subjective pt is calm c/o long hospitalization Objective Last 24 Hour Vital Signs Date Time Temp Pulse Resp B/P (MAP) Pulse Ox O2 Delivery O2 Flow Rate FiO2 01/06/17 23:42 96.8 63 19 95/47 98 Nasal Cannula 01/06/17 19:54 96.7 19 122/54 98 01/06/17 16:00 97.5 60 18 95/40 99 Nasal Cannula 2.0 01/06/17 09:30 62 01/06/17 08:06 97.0 62 18 97/55 98 Nasal Cannula 2.0 01/06/17 04:00 97.1 66 18 105/54 95 Nasal Cannula 2.0 01/06/17 00:00 97.9 61 18 99/59 95 Nasal Cannula 2.0 Intake and Output 01/06/17 01/07/17 19:00 07:00 Intake Total 360 ml 120 ml Output Total 300 ml Balance 60 ml 120 ml Intake Oral 360 ml 120 ml Output Urine Total 300 ml # Bowel Movements 1 Height (Feet): 5 Height (Inches): 7.00 Weight (Pounds): 126 Kallie Fernandez M.D. Jan 06, 2017 23:53
[2017-01-07] MEDS: Ketorolac 30mg Inj IV PRN ×3 (01:59→15:48)
[2017-01-07 03:43] VITALS: BP 101/42
[2017-01-07] MEDS: NovoLOG Insulin Flexpen SUBQ SCH ×4 (06:30→21:00)
[2017-01-07 08:00] VITALS: BP 88/51
[2017-01-07 08:01] LABS: BASOPHILS % (AUTO) 0.9 % (0.0-2.0); EOSINOPHILS % (AUTO) 6.5 % (0.0-3.0); HEMOGLOBIN 11.1 G/DL (12.0-16.0); LYMPHOCYTES % (AUTO) 20.7 % (20.0-45.0); MEAN CORPUSCULAR VOLUME 96 FL (80-99); MONOCYTES % (AUTO) 4.7 % (1.0-10.0); NEUTROPHILS % (AUTO) 67.1 % (45.0-75.0); PLATELET COUNT 305 K/UL (150-450); RED BLOOD COUNT 3.65 M/UL (4.20-5.40); RED CELL DISTRIBUTION WIDTH 14.8 % (11.6-14.8); WHITE BLOOD COUNT 10.7 K/UL (4.8-10.8)
[2017-01-07 08:15] LABS: ANION GAP 6 mmol/L (5-15); BLOOD UREA NITROGEN 22 mg/dL (7-18); CALCIUM 8.6 MG/DL (8.5-10.1); CARBON DIOXIDE 29 MMOL/L (21-32); CHLORIDE 107 MMOL/L (98-107); CREATININE 0.5 MG/DL (0.55-1.30); POTASSIUM 3.8 MMOL/L (3.5-5.1); SODIUM 142 MMOL/L (136-145)
--- NOTE | 2017-01-07 08:26 | General Progress Note ---
Assessment/Plan Problem List: (1) Diabetes mellitus ICD Codes: E11.9 - Type 2 diabetes mellitus without complications SNOMED: 44640394 (2) Hypothyroidism ICD Codes: E03.9 - Hypothyroidism, unspecified SNOMED: 09752357 (3) COPD (chronic obstructive pulmonary disease) ICD Codes: J44.9 - Chronic obstructive pulmonary disease, unspecified SNOMED: 61817206 (4) CHF (congestive heart failure) ICD Codes: I50.9 - Heart failure, unspecified SNOMED: 16768406 Assessment/Plan continue Levothyroxine 88 mcg continue Actos 15 mg + SSI Subjective Allergies: Coded Allergies: ACETAMINOPHEN (Unverified Allergy, Unknown, 12/17/16) CODEINE (Unverified Allergy, Unknown, 03/04/14) IODINE (Unverified Allergy, Unknown, 12/17/16) All Systems: reviewed and negative except above Subjective events noted Objective Last 24 Hour Vital Signs Date Time Temp Pulse Resp B/P (MAP) Pulse Ox O2 Delivery O2 Flow Rate FiO2 01/07/17 03:43 97.0 78 19 101/42 99 Nasal Cannula 01/07/17 02:29 96.8 01/06/17 23:42 96.8 63 19 95/47 98 Nasal Cannula 01/06/17 19:54 96.7 19 122/54 98 01/06/17 16:00 97.5 60 18 95/40 99 Nasal Cannula 2.0 01/06/17 09:30 62 Laboratory Tests 01/07/17 05:00: White Blood Count 10.7, Red Blood Count 3.65L, Hemoglobin 11.1L, Hematocrit 35.0L, Mean Corpuscular Volume 96, Mean Corpuscular Hemoglobin 30.4, Mean Corpuscular Hemoglobin Concent 31.7L, Red Cell Distribution Width 14.8, Platelet Count 305, Mean Platelet Volume 5.9L, Neutrophils (%) (Auto) 67.1, Lymphocytes (%) (Auto) 20.7, Monocytes (%) (Auto) 4.7, Eosinophils (%) (Auto) 6.5H, Basophils (%) (Auto) 0.9, Sodium Level 142, Potassium Level 3.8, Chloride Level 107, Carbon Dioxide Level 29, Anion Gap 6, Blood Urea Nitrogen 22H, Creatinine 0.5L, Estimat Glomerular Filtration Rate > 60, Glucose Level 60L, Calcium Level 8.6 Height (Feet): 5 Height (Inches): 7.00 Weight (Pounds): 126 General Appearance: no apparent distress EENT: pale conjunctivae Neck: normal alignment Cardiovascular: normal peripheral pulses Respiratory/Chest: decreased breath sounds Abdomen: normal bowel sounds Edema: no edema noted Arm (L), no edema noted Arm (R), no edema noted Leg (L), no edema noted Leg (R), no edema noted Pedal (L), no edema noted Pedal (R), no edema noted Generalized Objective Current Medications Medications (Trade) Dose Ordered Sig/Sandra Route PRN Reason Start Time Stop Time Status Last Admin Dose Admin Al Hydroxide/Mg Hydroxide (Mylanta II) 30 ml Q6H PRN GT dyspepsia 12/22/16 12:00 01/16/17 11:59 12/27/16 21:50 Chlorhexidine Gluconate (Chioma-Hex 2%) 1 applic DAILY@2000 TOPIC 12/23/16 20:00 01/22/17 19:59 01/06/17 21:20 Dextrose (Dextrose 50%) STAT PRN IV Hypoglycemia 12/22/16 12:00 01/19/17 11:59 Digoxin (Lanoxin) 0.25 mg DAILY GT 12/23/16 09:00 01/17/17 09:29 01/04/17 10:55 Docusate Sodium (Colace) 200 mg TIDPRN PRN ORAL Constipation 2nd line agent 01/03/17 20:00 02/02/17 19:59 Gabapentin (Neurontin) 300 mg TID GT 12/22/16 13:00 01/18/17 13:59 01/06/17 17:39 Heparin Sodium (Porcine) (Heparin 5000 units/ml) 5,000 units EVERY 12 HOURS SUBQ 12/22/16 21:00 01/17/17 08:59 01/06/17 21:21 Hydroxyzine HCl (Atarax) 25 mg BID GT 12/22/16 18:00 01/17/17 08:59 01/06/17 17:39 Insulin Aspart (NovoLOG) AC+HS SUBQ 12/30/16 21:00 01/17/17 17:59 01/02/17 21:51 Ketorolac Tromethamine (Toradol 30mg) 15 mg Q6H PRN IV For Pain 01/02/17 21:00 01/07/17 20:59 01/07/17 01:59 Levothyroxine Sodium (Synthroid) 88 mcg ACBREAKFAST GT 12/29/16 06:30 01/28/17 06:29 01/07/17 06:00 Mirtazapine (Remeron) 15 mg BEDTIME GT 12/26/16 21:00 01/25/17 20:59 01/06/17 21:20 Nitroglycerin (Ntg) 0.4 mg Q5MIN X 3 DOSES PRN SL Prn Chest Pain 12/22/16 12:00 01/18/17 17:19 Ondansetron HCl (Zofran) 4 mg Q6H PRN IVP Nausea & Vomiting 12/22/16 12:00 01/16/17 11:59 Pioglitazone HCl (Actos) 15 mg DAILY GT 12/23/16 09:00 01/17/17 09:29 01/06/17 09:24 Polyethylene Glycol (Miralax) 17 gm DAILYPRN PRN ORAL Constipation 12/22/16 12:00 01/19/17 11:59 Sennosides (Senokot) 8.6 mg DAILY ORAL 01/03/17 21:00 02/02/17 20:59 01/06/17 09:24 Item Value Date Time Bedside Blood Glucose 98 mg/dl 01/07/17 0631 Bedside Blood Glucose 91 mg/dl 01/06/172129 Bedside Blood Glucose 77 mg/dl 01/06/17 0634 ANGEL RICHARDSON Jan 07, 2017 08:26
--- NOTE | 2017-01-07 08:26 | General Progress Note ---
Assessment/Plan Problem List: (1) Diabetes mellitus ICD Codes: E11.9 - Type 2 diabetes mellitus without complications SNOMED: 04792551 (2) Hypothyroidism ICD Codes: E03.9 - Hypothyroidism, unspecified SNOMED: 61876218 (3) COPD (chronic obstructive pulmonary disease) ICD Codes: J44.9 - Chronic obstructive pulmonary disease, unspecified SNOMED: 76814031 (4) CHF (congestive heart failure) ICD Codes: I50.9 - Heart failure, unspecified SNOMED: 18483274 Assessment/Plan continue Levothyroxine 88 mcg continue Actos 15 mg + SSI Subjective Allergies: Coded Allergies: ACETAMINOPHEN (Unverified Allergy, Unknown, 12/17/16) CODEINE (Unverified Allergy, Unknown, 03/04/14) IODINE (Unverified Allergy, Unknown, 12/17/16) All Systems: reviewed and negative except above Subjective events noted Objective Last 24 Hour Vital Signs Date Time Temp Pulse Resp B/P (MAP) Pulse Ox O2 Delivery O2 Flow Rate FiO2 01/07/17 03:43 97.0 78 19 101/42 99 Nasal Cannula 01/07/17 02:29 96.8 01/06/17 23:42 96.8 63 19 95/47 98 Nasal Cannula 01/06/17 19:54 96.7 19 122/54 98 01/06/17 16:00 97.5 60 18 95/40 99 Nasal Cannula 2.0 01/06/17 09:30 62 Laboratory Tests 01/07/17 05:00: White Blood Count 10.7, Red Blood Count 3.65L, Hemoglobin 11.1L, Hematocrit 35.0L, Mean Corpuscular Volume 96, Mean Corpuscular Hemoglobin 30.4, Mean Corpuscular Hemoglobin Concent 31.7L, Red Cell Distribution Width 14.8, Platelet Count 305, Mean Platelet Volume 5.9L, Neutrophils (%) (Auto) 67.1, Lymphocytes (%) (Auto) 20.7, Monocytes (%) (Auto) 4.7, Eosinophils (%) (Auto) 6.5H, Basophils (%) (Auto) 0.9, Sodium Level 142, Potassium Level 3.8, Chloride Level 107, Carbon Dioxide Level 29, Anion Gap 6, Blood Urea Nitrogen 22H, Creatinine 0.5L, Estimat Glomerular Filtration Rate > 60, Glucose Level 60L, Calcium Level 8.6 Height (Feet): 5 Height (Inches): 7.00 Weight (Pounds): 126 General Appearance: no apparent distress EENT: pale conjunctivae Neck: normal alignment Cardiovascular: normal peripheral pulses Respiratory/Chest: decreased breath sounds Abdomen: normal bowel sounds Edema: no edema noted Arm (L), no edema noted Arm (R), no edema noted Leg (L), no edema noted Leg (R), no edema noted Pedal (L), no edema noted Pedal (R), no edema noted Generalized Objective Current Medications Medications (Trade) Dose Ordered Sig/Sandra Route PRN Reason Start Time Stop Time Status Last Admin Dose Admin Al Hydroxide/Mg Hydroxide (Mylanta II) 30 ml Q6H PRN GT dyspepsia 12/22/16 12:00 01/16/17 11:59 12/27/16 21:50 Chlorhexidine Gluconate (Chioma-Hex 2%) 1 applic DAILY@2000 TOPIC 12/23/16 20:00 01/22/17 19:59 01/06/17 21:20 Dextrose (Dextrose 50%) STAT PRN IV Hypoglycemia 12/22/16 12:00 01/19/17 11:59 Digoxin (Lanoxin) 0.25 mg DAILY GT 12/23/16 09:00 01/17/17 09:29 01/04/17 10:55 Docusate Sodium (Colace) 200 mg TIDPRN PRN ORAL Constipation 2nd line agent 01/03/17 20:00 02/02/17 19:59 Gabapentin (Neurontin) 300 mg TID GT 12/22/16 13:00 01/18/17 13:59 01/06/17 17:39 Heparin Sodium (Porcine) (Heparin 5000 units/ml) 5,000 units EVERY 12 HOURS SUBQ 12/22/16 21:00 01/17/17 08:59 01/06/17 21:21 Hydroxyzine HCl (Atarax) 25 mg BID GT 12/22/16 18:00 01/17/17 08:59 01/06/17 17:39 Insulin Aspart (NovoLOG) AC+HS SUBQ 12/30/16 21:00 01/17/17 17:59 01/02/17 21:51 Ketorolac Tromethamine (Toradol 30mg) 15 mg Q6H PRN IV For Pain 01/02/17 21:00 01/07/17 20:59 01/07/17 01:59 Levothyroxine Sodium (Synthroid) 88 mcg ACBREAKFAST GT 12/29/16 06:30 01/28/17 06:29 01/07/17 06:00 Mirtazapine (Remeron) 15 mg BEDTIME GT 12/26/16 21:00 01/25/17 20:59 01/06/17 21:20 Nitroglycerin (Ntg) 0.4 mg Q5MIN X 3 DOSES PRN SL Prn Chest Pain 12/22/16 12:00 01/18/17 17:19 Ondansetron HCl (Zofran) 4 mg Q6H PRN IVP Nausea & Vomiting 12/22/16 12:00 01/16/17 11:59 Pioglitazone HCl (Actos) 15 mg DAILY GT 12/23/16 09:00 01/17/17 09:29 01/06/17 09:24 Polyethylene Glycol (Miralax) 17 gm DAILYPRN PRN ORAL Constipation 12/22/16 12:00 01/19/17 11:59 Sennosides (Senokot) 8.6 mg DAILY ORAL 01/03/17 21:00 02/02/17 20:59 01/06/17 09:24 Item Value Date Time Bedside Blood Glucose 98 mg/dl 01/07/17 0631 Bedside Blood Glucose 91 mg/dl 01/06/172129 Bedside Blood Glucose 77 mg/dl 01/06/17 0634 ANGEL RICHARDSON Jan 07, 2017 08:26
--- NOTE | 2017-01-07 08:26 | General Progress Note ---
Assessment/Plan Problem List: (1) Diabetes mellitus ICD Codes: E11.9 - Type 2 diabetes mellitus without complications SNOMED: 51258206 (2) Hypothyroidism ICD Codes: E03.9 - Hypothyroidism, unspecified SNOMED: 55879592 (3) COPD (chronic obstructive pulmonary disease) ICD Codes: J44.9 - Chronic obstructive pulmonary disease, unspecified SNOMED: 18904516 (4) CHF (congestive heart failure) ICD Codes: I50.9 - Heart failure, unspecified SNOMED: 98298094 Assessment/Plan continue Levothyroxine 88 mcg continue Actos 15 mg + SSI Subjective Allergies: Coded Allergies: ACETAMINOPHEN (Unverified Allergy, Unknown, 12/17/16) CODEINE (Unverified Allergy, Unknown, 03/04/14) IODINE (Unverified Allergy, Unknown, 12/17/16) All Systems: reviewed and negative except above Subjective events noted Objective Last 24 Hour Vital Signs Date Time Temp Pulse Resp B/P (MAP) Pulse Ox O2 Delivery O2 Flow Rate FiO2 01/07/17 03:43 97.0 78 19 101/42 99 Nasal Cannula 01/07/17 02:29 96.8 01/06/17 23:42 96.8 63 19 95/47 98 Nasal Cannula 01/06/17 19:54 96.7 19 122/54 98 01/06/17 16:00 97.5 60 18 95/40 99 Nasal Cannula 2.0 01/06/17 09:30 62 Laboratory Tests 01/07/17 05:00: White Blood Count 10.7, Red Blood Count 3.65L, Hemoglobin 11.1L, Hematocrit 35.0L, Mean Corpuscular Volume 96, Mean Corpuscular Hemoglobin 30.4, Mean Corpuscular Hemoglobin Concent 31.7L, Red Cell Distribution Width 14.8, Platelet Count 305, Mean Platelet Volume 5.9L, Neutrophils (%) (Auto) 67.1, Lymphocytes (%) (Auto) 20.7, Monocytes (%) (Auto) 4.7, Eosinophils (%) (Auto) 6.5H, Basophils (%) (Auto) 0.9, Sodium Level 142, Potassium Level 3.8, Chloride Level 107, Carbon Dioxide Level 29, Anion Gap 6, Blood Urea Nitrogen 22H, Creatinine 0.5L, Estimat Glomerular Filtration Rate > 60, Glucose Level 60L, Calcium Level 8.6 Height (Feet): 5 Height (Inches): 7.00 Weight (Pounds): 126 General Appearance: no apparent distress EENT: pale conjunctivae Neck: normal alignment Cardiovascular: normal peripheral pulses Respiratory/Chest: decreased breath sounds Abdomen: normal bowel sounds Edema: no edema noted Arm (L), no edema noted Arm (R), no edema noted Leg (L), no edema noted Leg (R), no edema noted Pedal (L), no edema noted Pedal (R), no edema noted Generalized Objective Current Medications Medications (Trade) Dose Ordered Sig/Sandra Route PRN Reason Start Time Stop Time Status Last Admin Dose Admin Al Hydroxide/Mg Hydroxide (Mylanta II) 30 ml Q6H PRN GT dyspepsia 12/22/16 12:00 01/16/17 11:59 12/27/16 21:50 Chlorhexidine Gluconate (Chioma-Hex 2%) 1 applic DAILY@2000 TOPIC 12/23/16 20:00 01/22/17 19:59 01/06/17 21:20 Dextrose (Dextrose 50%) STAT PRN IV Hypoglycemia 12/22/16 12:00 01/19/17 11:59 Digoxin (Lanoxin) 0.25 mg DAILY GT 12/23/16 09:00 01/17/17 09:29 01/04/17 10:55 Docusate Sodium (Colace) 200 mg TIDPRN PRN ORAL Constipation 2nd line agent 01/03/17 20:00 02/02/17 19:59 Gabapentin (Neurontin) 300 mg TID GT 12/22/16 13:00 01/18/17 13:59 01/06/17 17:39 Heparin Sodium (Porcine) (Heparin 5000 units/ml) 5,000 units EVERY 12 HOURS SUBQ 12/22/16 21:00 01/17/17 08:59 01/06/17 21:21 Hydroxyzine HCl (Atarax) 25 mg BID GT 12/22/16 18:00 01/17/17 08:59 01/06/17 17:39 Insulin Aspart (NovoLOG) AC+HS SUBQ 12/30/16 21:00 01/17/17 17:59 01/02/17 21:51 Ketorolac Tromethamine (Toradol 30mg) 15 mg Q6H PRN IV For Pain 01/02/17 21:00 01/07/17 20:59 01/07/17 01:59 Levothyroxine Sodium (Synthroid) 88 mcg ACBREAKFAST GT 12/29/16 06:30 01/28/17 06:29 01/07/17 06:00 Mirtazapine (Remeron) 15 mg BEDTIME GT 12/26/16 21:00 01/25/17 20:59 01/06/17 21:20 Nitroglycerin (Ntg) 0.4 mg Q5MIN X 3 DOSES PRN SL Prn Chest Pain 12/22/16 12:00 01/18/17 17:19 Ondansetron HCl (Zofran) 4 mg Q6H PRN IVP Nausea & Vomiting 12/22/16 12:00 01/16/17 11:59 Pioglitazone HCl (Actos) 15 mg DAILY GT 12/23/16 09:00 01/17/17 09:29 01/06/17 09:24 Polyethylene Glycol (Miralax) 17 gm DAILYPRN PRN ORAL Constipation 12/22/16 12:00 01/19/17 11:59 Sennosides (Senokot) 8.6 mg DAILY ORAL 01/03/17 21:00 02/02/17 20:59 01/06/17 09:24 Item Value Date Time Bedside Blood Glucose 98 mg/dl 01/07/17 0631 Bedside Blood Glucose 91 mg/dl 01/06/172129 Bedside Blood Glucose 77 mg/dl 01/06/17 0634 ANGEL RICHARDSON Jan 07, 2017 08:26
[2017-01-07] MEDS: Sennosides 8.6mg ORAL SCH (08:34)
[2017-01-07] MEDS: Gabapentin 300 MG/6 ML Soln GT SCH ×3 (08:34→18:09)
[2017-01-07] MEDS: HydrOXYzine 25mg tab GT SCH ×2 (08:34→18:09)
[2017-01-07] MEDS: Heparin 5000 units/ml inj SUBQ SCH ×2 (08:50→20:32)
--- NOTE | 2017-01-07 11:11 | GI Progress Note ---
Assessment/Plan Problems: (1) PEG (percutaneous endoscopic gastrostomy) adjustment/replacement/removal ICD Codes: Z43.1 - Encounter for attention to gastrostomy SNOMED: 359859168, 191837694 (2) Chronic pain ICD Codes: G89.29 - Other chronic pain SNOMED: 67381542 (3) Diabetes mellitus ICD Codes: E11.9 - Type 2 diabetes mellitus without complications SNOMED: 18492473 (4) Hypothyroidism ICD Codes: E03.9 - Hypothyroidism, unspecified SNOMED: 50236527 Assessment/Plan okay for DC per GI standpoint cdiff negative s/p GT removal GT site care daily/prn soft diet, push PO fu labs fu Hep C antibody The patient was seen and examined at bedside and all new and available data was reviewed in the patients chart. I agree with the above findings, impression and plan. (Patient seen earlier today. Signature stamp does not reflect patient encounter time.). - Patrick Mesa MD Subjective Subjective tolerating diet Objective Last 24 Hour Vital Signs Date Time Temp Pulse Resp B/P (MAP) Pulse Ox O2 Delivery O2 Flow Rate FiO2 01/07/17 08:50 50 01/07/17 08:00 97.2 61 18 88/51 100 Nasal Cannula 2.0 01/07/17 03:43 97.0 78 19 101/42 99 Nasal Cannula 01/07/17 02:29 96.8 01/06/17 23:42 96.8 63 19 95/47 98 Nasal Cannula 01/06/17 19:54 96.7 19 122/54 98 01/06/17 16:00 97.5 60 18 95/40 99 Nasal Cannula 2.0 Laboratory Tests Test 01/07/17 05:00 White Blood Count 10.7 K/UL (4.8-10.8) Red Blood Count 3.65 M/UL (4.20-5.40) L Hemoglobin 11.1 G/DL (12.0-16.0) L Hematocrit 35.0 % (37.0-47.0) L Mean Corpuscular Volume 96 FL (80-99) Mean Corpuscular Hemoglobin 30.4 PG (27.0-31.0) Mean Corpuscular Hemoglobin Concent 31.7 G/DL (32.0-36.0) L Red Cell Distribution Width 14.8 % (11.6-14.8) Platelet Count 305 K/UL (150-450) Mean Platelet Volume 5.9 FL (6.5-10.1) L Neutrophils (%) (Auto) 67.1 % (45.0-75.0) Lymphocytes (%) (Auto) 20.7 % (20.0-45.0) Monocytes (%) (Auto) 4.7 % (1.0-10.0) Eosinophils (%) (Auto) 6.5 % (0.0-3.0) H Basophils (%) (Auto) 0.9 % (0.0-2.0) Sodium Level 142 MMOL/L (136-145) Potassium Level 3.8 MMOL/L (3.5-5.1) Chloride Level 107 MMOL/L (98-107) Carbon Dioxide Level 29 MMOL/L (21-32) Anion Gap 6 mmol/L (5-15) Blood Urea Nitrogen 22 mg/dL (7-18) H Creatinine 0.5 MG/DL (0.55-1.30) L Estimat Glomerular Filtration Rate > 60 mL/min (>60) Glucose Level 60 MG/DL (74-106) L Calcium Level 8.6 MG/DL (8.5-10.1) Height (Feet): 5 Height (Inches): 7.00 Weight (Pounds): 126 General Appearance: WD/WN, no apparent distress, alert Cardiovascular: normal rate Respiratory/Chest: normal breath sounds, no respiratory distress Abdominal Exam: normal bowel sounds, non tender, soft, GT site - c/d/i Shruti Roberson NCoco Jan 07, 2017 11:11 DIAZ MESA Jan 08, 2017 07:14
--- NOTE | 2017-01-07 11:11 | GI Progress Note ---
Assessment/Plan Problems: (1) PEG (percutaneous endoscopic gastrostomy) adjustment/replacement/removal ICD Codes: Z43.1 - Encounter for attention to gastrostomy SNOMED: 968638145, 663223280 (2) Chronic pain ICD Codes: G89.29 - Other chronic pain SNOMED: 98689934 (3) Diabetes mellitus ICD Codes: E11.9 - Type 2 diabetes mellitus without complications SNOMED: 88854420 (4) Hypothyroidism ICD Codes: E03.9 - Hypothyroidism, unspecified SNOMED: 94438948 Assessment/Plan okay for DC per GI standpoint cdiff negative s/p GT removal GT site care daily/prn soft diet, push PO fu labs fu Hep C antibody The patient was seen and examined at bedside and all new and available data was reviewed in the patients chart. I agree with the above findings, impression and plan. (Patient seen earlier today. Signature stamp does not reflect patient encounter time.). - Patrick Mesa MD Subjective Subjective tolerating diet Objective Last 24 Hour Vital Signs Date Time Temp Pulse Resp B/P (MAP) Pulse Ox O2 Delivery O2 Flow Rate FiO2 01/07/17 08:50 50 01/07/17 08:00 97.2 61 18 88/51 100 Nasal Cannula 2.0 01/07/17 03:43 97.0 78 19 101/42 99 Nasal Cannula 01/07/17 02:29 96.8 01/06/17 23:42 96.8 63 19 95/47 98 Nasal Cannula 01/06/17 19:54 96.7 19 122/54 98 01/06/17 16:00 97.5 60 18 95/40 99 Nasal Cannula 2.0 Laboratory Tests Test 01/07/17 05:00 White Blood Count 10.7 K/UL (4.8-10.8) Red Blood Count 3.65 M/UL (4.20-5.40) L Hemoglobin 11.1 G/DL (12.0-16.0) L Hematocrit 35.0 % (37.0-47.0) L Mean Corpuscular Volume 96 FL (80-99) Mean Corpuscular Hemoglobin 30.4 PG (27.0-31.0) Mean Corpuscular Hemoglobin Concent 31.7 G/DL (32.0-36.0) L Red Cell Distribution Width 14.8 % (11.6-14.8) Platelet Count 305 K/UL (150-450) Mean Platelet Volume 5.9 FL (6.5-10.1) L Neutrophils (%) (Auto) 67.1 % (45.0-75.0) Lymphocytes (%) (Auto) 20.7 % (20.0-45.0) Monocytes (%) (Auto) 4.7 % (1.0-10.0) Eosinophils (%) (Auto) 6.5 % (0.0-3.0) H Basophils (%) (Auto) 0.9 % (0.0-2.0) Sodium Level 142 MMOL/L (136-145) Potassium Level 3.8 MMOL/L (3.5-5.1) Chloride Level 107 MMOL/L (98-107) Carbon Dioxide Level 29 MMOL/L (21-32) Anion Gap 6 mmol/L (5-15) Blood Urea Nitrogen 22 mg/dL (7-18) H Creatinine 0.5 MG/DL (0.55-1.30) L Estimat Glomerular Filtration Rate > 60 mL/min (>60) Glucose Level 60 MG/DL (74-106) L Calcium Level 8.6 MG/DL (8.5-10.1) Height (Feet): 5 Height (Inches): 7.00 Weight (Pounds): 126 General Appearance: WD/WN, no apparent distress, alert Cardiovascular: normal rate Respiratory/Chest: normal breath sounds, no respiratory distress Abdominal Exam: normal bowel sounds, non tender, soft, GT site - c/d/i Shruti Roberson NCoco Jan 07, 2017 11:11 DIAZ MESA Jan 08, 2017 07:14
--- NOTE | 2017-01-07 11:11 | GI Progress Note ---
Assessment/Plan Problems: (1) PEG (percutaneous endoscopic gastrostomy) adjustment/replacement/removal ICD Codes: Z43.1 - Encounter for attention to gastrostomy SNOMED: 538268688, 669475600 (2) Chronic pain ICD Codes: G89.29 - Other chronic pain SNOMED: 83227076 (3) Diabetes mellitus ICD Codes: E11.9 - Type 2 diabetes mellitus without complications SNOMED: 15354422 (4) Hypothyroidism ICD Codes: E03.9 - Hypothyroidism, unspecified SNOMED: 47432204 Assessment/Plan okay for DC per GI standpoint cdiff negative s/p GT removal GT site care daily/prn soft diet, push PO fu labs fu Hep C antibody The patient was seen and examined at bedside and all new and available data was reviewed in the patients chart. I agree with the above findings, impression and plan. (Patient seen earlier today. Signature stamp does not reflect patient encounter time.). - Patrick Mesa MD Subjective Subjective tolerating diet Objective Last 24 Hour Vital Signs Date Time Temp Pulse Resp B/P (MAP) Pulse Ox O2 Delivery O2 Flow Rate FiO2 01/07/17 08:50 50 01/07/17 08:00 97.2 61 18 88/51 100 Nasal Cannula 2.0 01/07/17 03:43 97.0 78 19 101/42 99 Nasal Cannula 01/07/17 02:29 96.8 01/06/17 23:42 96.8 63 19 95/47 98 Nasal Cannula 01/06/17 19:54 96.7 19 122/54 98 01/06/17 16:00 97.5 60 18 95/40 99 Nasal Cannula 2.0 Laboratory Tests Test 01/07/17 05:00 White Blood Count 10.7 K/UL (4.8-10.8) Red Blood Count 3.65 M/UL (4.20-5.40) L Hemoglobin 11.1 G/DL (12.0-16.0) L Hematocrit 35.0 % (37.0-47.0) L Mean Corpuscular Volume 96 FL (80-99) Mean Corpuscular Hemoglobin 30.4 PG (27.0-31.0) Mean Corpuscular Hemoglobin Concent 31.7 G/DL (32.0-36.0) L Red Cell Distribution Width 14.8 % (11.6-14.8) Platelet Count 305 K/UL (150-450) Mean Platelet Volume 5.9 FL (6.5-10.1) L Neutrophils (%) (Auto) 67.1 % (45.0-75.0) Lymphocytes (%) (Auto) 20.7 % (20.0-45.0) Monocytes (%) (Auto) 4.7 % (1.0-10.0) Eosinophils (%) (Auto) 6.5 % (0.0-3.0) H Basophils (%) (Auto) 0.9 % (0.0-2.0) Sodium Level 142 MMOL/L (136-145) Potassium Level 3.8 MMOL/L (3.5-5.1) Chloride Level 107 MMOL/L (98-107) Carbon Dioxide Level 29 MMOL/L (21-32) Anion Gap 6 mmol/L (5-15) Blood Urea Nitrogen 22 mg/dL (7-18) H Creatinine 0.5 MG/DL (0.55-1.30) L Estimat Glomerular Filtration Rate > 60 mL/min (>60) Glucose Level 60 MG/DL (74-106) L Calcium Level 8.6 MG/DL (8.5-10.1) Height (Feet): 5 Height (Inches): 7.00 Weight (Pounds): 126 General Appearance: WD/WN, no apparent distress, alert Cardiovascular: normal rate Respiratory/Chest: normal breath sounds, no respiratory distress Abdominal Exam: normal bowel sounds, non tender, soft, GT site - c/d/i Shrtui Roberson NCoco Jan 07, 2017 11:11 DIAZ MESA Jan 08, 2017 07:14
[2017-01-07 12:00] VITALS: BP 106/55
[2017-01-07 16:00] VITALS: BP 107/53
[2017-01-07 19:51] VITALS: BP 98/50
[2017-01-07] MEDS: Dyna-Hex 2% Top Sol 2oz TOPIC SCH (20:00)
--- NOTE | 2017-01-07 21:54 | Pulmonology Progress Note ---
Assessment/Plan Problems: (1) Purulent bronchitis (2) Acute and chronic respiratory failure ([id number]) (3) Tracheostomy malfunction (4) COPD (chronic obstructive pulmonary disease) (5) Interstitial lung disease (6) Diabetes mellitus (7) Hypothyroidism Assessment/Plan symptomatic treatment tolerating off trach, respiratory treatment check sputum psych evaluation all notes reviewed awaiting discharge Subjective ROS Limited/Unobtainable: No Constitutional: Reports: no symptoms HEENT: Repors: no symptoms Respiratory: Reports: no symptoms Allergies: Coded Allergies: ACETAMINOPHEN (Unverified Allergy, Unknown, 12/17/16) CODEINE (Unverified Allergy, Unknown, 03/04/14) IODINE (Unverified Allergy, Unknown, 12/17/16) Objective Last 24 Hour Vital Signs Date Time Temp Pulse Resp B/P (MAP) Pulse Ox O2 Delivery O2 Flow Rate FiO2 01/07/17 20:08 96 Nasal Cannula 3.0 32 01/07/17 20:08 Nasal Cannula 3.0 32 01/07/17 19:51 96.3 53 20 98/50 99 Room Air 01/07/17 16:00 97.5 51 18 107/53 98 Nasal Cannula 2.0 01/07/17 12:00 96.6 56 20 106/55 99 Nasal Cannula 2.0 01/07/17 08:50 50 01/07/17 08:00 97.2 61 18 88/51 100 Nasal Cannula 2.0 01/07/17 03:43 97.0 78 19 101/42 99 Nasal Cannula 01/07/17 02:29 96.8 01/06/17 23:42 96.8 63 19 95/47 98 Nasal Cannula Intake and Output 01/07/17 01/08/17 19:00 07:00 Intake Total 360 ml Balance 360 ml Intake Oral 360 ml # Voids 5 # Bowel Movements 3 Objective General Appearance: no acute distress, cachetic HEENT: normocephalic, atraumatic Respiratory/Chest: chest wall non-tender, lungs clear, normal breath sounds Cardiovascular: normal peripheral pulses, normal rate Abdomen: normal bowel sounds, soft, non tender Genitourinary: normal external genitalia Extremities: no cyanosis Skin: no rash Laboratory Tests 01/07/17 05:00: White Blood Count 10.7, Red Blood Count 3.65L, Hemoglobin 11.1L, Hematocrit 35.0L, Mean Corpuscular Volume 96, Mean Corpuscular Hemoglobin 30.4, Mean Corpuscular Hemoglobin Concent 31.7L, Red Cell Distribution Width 14.8, Platelet Count 305, Mean Platelet Volume 5.9L, Neutrophils (%) (Auto) 67.1, Lymphocytes (%) (Auto) 20.7, Monocytes (%) (Auto) 4.7, Eosinophils (%) (Auto) 6.5H, Basophils (%) (Auto) 0.9, Sodium Level 142, Potassium Level 3.8, Chloride Level 107, Carbon Dioxide Level 29, Anion Gap 6, Blood Urea Nitrogen 22H, Creatinine 0.5L, Estimat Glomerular Filtration Rate > 60, Glucose Level 60L, Calcium Level 8.6 Current Medications Medications (Trade) Dose Ordered Sig/Sandra Route PRN Reason Start Time Stop Time Status Last Admin Dose Admin Al Hydroxide/Mg Hydroxide (Mylanta II) 30 ml Q6H PRN GT dyspepsia 12/22/16 12:00 01/16/17 11:59 12/27/16 21:50 Chlorhexidine Gluconate (Chioma-Hex 2%) 1 applic DAILY@1999 TOPIC 12/23/16 20:00 01/22/17 19:59 01/07/17 20:00 Dextrose (Dextrose 50%) STAT PRN IV Hypoglycemia 12/22/16 12:00 01/19/17 11:59 Digoxin (Lanoxin) 0.25 mg DAILY GT 12/23/16 09:00 01/17/17 09:29 01/04/17 10:55 Docusate Sodium (Colace) 200 mg TIDPRN PRN ORAL Constipation 2nd line agent 01/03/17 20:00 02/02/17 19:59 Gabapentin (Neurontin) 300 mg TID GT 12/22/16 13:00 01/18/17 13:59 01/07/17 18:09 Heparin Sodium (Porcine) (Heparin 5000 units/ml) 5,000 units EVERY 12 HOURS SUBQ 12/22/16 21:00 01/17/17 08:59 01/07/17 20:32 Hydroxyzine HCl (Atarax) 25 mg BID GT 12/22/16 18:00 01/17/17 08:59 01/07/17 18:09 Insulin Aspart (NovoLOG) AC+HS SUBQ 12/30/16 21:00 01/17/17 17:59 01/07/17 17:19 Levothyroxine Sodium (Synthroid) 88 mcg ACBREAKFAST GT 12/29/16 06:30 01/28/17 06:29 01/07/17 06:00 Mirtazapine (Remeron) 15 mg BEDTIME GT 12/26/16 21:00 01/25/17 20:59 01/07/17 20:32 Nitroglycerin (Ntg) 0.4 mg Q5MIN X 3 DOSES PRN SL Prn Chest Pain 12/22/16 12:00 01/18/17 17:19 Ondansetron HCl (Zofran) 4 mg Q6H PRN IVP Nausea & Vomiting 12/22/16 12:00 01/16/17 11:59 Pioglitazone HCl (Actos) 15 mg DAILY GT 12/23/16 09:00 01/17/17 09:29 01/07/17 08:34 Polyethylene Glycol (Miralax) 17 gm DAILYPRN PRN ORAL Constipation 12/22/16 12:00 01/19/17 11:59 Sennosides (Senokot) 8.6 mg DAILY ORAL 01/03/17 21:00 02/02/17 20:59 01/07/17 08:34 DEDRICK SOLANO Jan 07, 2017 21:54
--- NOTE | 2017-01-07 22:35 | General Progress Note ---
Assessment/Plan Assessment/Plan mdd cont current meds provided ro/st Subjective Allergies: Coded Allergies: ACETAMINOPHEN (Unverified Allergy, Unknown, 12/17/16) CODEINE (Unverified Allergy, Unknown, 03/04/14) IODINE (Unverified Allergy, Unknown, 12/17/16) Subjective pt is calm c/o long hospitalization Objective Last 24 Hour Vital Signs Date Time Temp Pulse Resp B/P (MAP) Pulse Ox O2 Delivery O2 Flow Rate FiO2 01/07/17 20:08 96 Nasal Cannula 3.0 32 01/07/17 20:08 Nasal Cannula 3.0 32 01/07/17 19:51 96.3 53 20 98/50 99 Room Air 01/07/17 16:00 97.5 51 18 107/53 98 Nasal Cannula 2.0 01/07/17 12:00 96.6 56 20 106/55 99 Nasal Cannula 2.0 01/07/17 08:50 50 01/07/17 08:00 97.2 61 18 88/51 100 Nasal Cannula 2.0 01/07/17 03:43 97.0 78 19 101/42 99 Nasal Cannula 01/07/17 02:29 96.8 01/06/17 23:42 96.8 63 19 95/47 98 Nasal Cannula Intake and Output 01/07/17 01/08/17 19:00 07:00 Intake Total 360 ml Balance 360 ml Intake Oral 360 ml # Voids 5 # Bowel Movements 3 Laboratory Tests 01/07/17 05:00: White Blood Count 10.7, Red Blood Count 3.65L, Hemoglobin 11.1L, Hematocrit 35.0L, Mean Corpuscular Volume 96, Mean Corpuscular Hemoglobin 30.4, Mean Corpuscular Hemoglobin Concent 31.7L, Red Cell Distribution Width 14.8, Platelet Count 305, Mean Platelet Volume 5.9L, Neutrophils (%) (Auto) 67.1, Lymphocytes (%) (Auto) 20.7, Monocytes (%) (Auto) 4.7, Eosinophils (%) (Auto) 6.5H, Basophils (%) (Auto) 0.9, Sodium Level 142, Potassium Level 3.8, Chloride Level 107, Carbon Dioxide Level 29, Anion Gap 6, Blood Urea Nitrogen 22H, Creatinine 0.5L, Estimat Glomerular Filtration Rate > 60, Glucose Level 60L, Calcium Level 8.6 Height (Feet): 5 Height (Inches): 7.00 Weight (Pounds): 126 Kallie Fernandez M.D. Jan 07, 2017 22:35
[2017-01-07 23:52] VITALS: BP 87/48
[2017-01-08 03:52] VITALS: BP 120/61
[2017-01-08] MEDS: NovoLOG Insulin Flexpen SUBQ SCH ×2 (06:30→11:30)
--- NOTE | 2017-01-08 06:31 | General Progress Note ---
Assessment/Plan Problem List: (1) Diabetes mellitus ICD Codes: E11.9 - Type 2 diabetes mellitus without complications SNOMED: 95280781 (2) Hypothyroidism ICD Codes: E03.9 - Hypothyroidism, unspecified SNOMED: 41923319 (3) COPD (chronic obstructive pulmonary disease) ICD Codes: J44.9 - Chronic obstructive pulmonary disease, unspecified SNOMED: 91589602 (4) CHF (congestive heart failure) ICD Codes: I50.9 - Heart failure, unspecified SNOMED: 69283193 Assessment/Plan continue Levothyroxine 88 mcg DC Actos 15 mg continue SSI no need for insulin or Actos after DC Subjective Allergies: Coded Allergies: ACETAMINOPHEN (Unverified Allergy, Unknown, 12/17/16) CODEINE (Unverified Allergy, Unknown, 03/04/14) IODINE (Unverified Allergy, Unknown, 12/17/16) All Systems: reviewed and negative except above Subjective events noted Objective Last 24 Hour Vital Signs Date Time Temp Pulse Resp B/P (MAP) Pulse Ox O2 Delivery O2 Flow Rate FiO2 01/08/17 03:52 97.0 56 20 120/61 98 Room Air 01/07/17 23:52 97.2 65 20 87/48 99 Room Air 01/07/17 20:08 96 Nasal Cannula 3.0 32 01/07/17 20:08 Nasal Cannula 3.0 32 01/07/17 19:51 96.3 53 20 98/50 99 Room Air 01/07/17 16:00 97.5 51 18 107/53 98 Nasal Cannula 2.0 01/07/17 12:00 96.6 56 20 106/55 99 Nasal Cannula 2.0 01/07/17 08:50 50 01/07/17 08:00 97.2 61 18 88/51 100 Nasal Cannula 2.0 Height (Feet): 5 Height (Inches): 7.00 Weight (Pounds): 126 General Appearance: no apparent distress Neck: normal alignment Cardiovascular: normal rate Respiratory/Chest: decreased breath sounds Abdomen: normal bowel sounds Pelvis: normal external exam Edema: no edema noted Arm (L), no edema noted Arm (R), no edema noted Leg (L), no edema noted Leg (R), no edema noted Pedal (L), no edema noted Pedal (R), no edema noted Generalized Objective Current Medications Medications (Trade) Dose Ordered Sig/Sandra Route PRN Reason Start Time Stop Time Status Last Admin Dose Admin Al Hydroxide/Mg Hydroxide (Mylanta II) 30 ml Q6H PRN GT dyspepsia 12/22/16 12:00 01/16/17 11:59 12/27/16 21:50 Chlorhexidine Gluconate (Chioma-Hex 2%) 1 applic DAILY@2000 TOPIC 12/23/16 20:00 01/22/17 19:59 01/07/17 20:00 Dextrose (Dextrose 50%) STAT PRN IV Hypoglycemia 12/22/16 12:00 01/19/17 11:59 Digoxin (Lanoxin) 0.25 mg DAILY GT 12/23/16 09:00 01/17/17 09:29 01/04/17 10:55 Docusate Sodium (Colace) 200 mg TIDPRN PRN ORAL Constipation 2nd line agent 01/03/17 20:00 02/02/17 19:59 Gabapentin (Neurontin) 300 mg TID GT 12/22/16 13:00 01/18/17 13:59 01/07/17 18:09 Heparin Sodium (Porcine) (Heparin 5000 units/ml) 5,000 units EVERY 12 HOURS SUBQ 12/22/16 21:00 01/17/17 08:59 01/07/17 20:32 Hydroxyzine HCl (Atarax) 25 mg BID GT 12/22/16 18:00 01/17/17 08:59 01/07/17 18:09 Insulin Aspart (NovoLOG) AC+HS SUBQ 12/30/16 21:00 01/17/17 17:59 01/07/17 17:19 Levothyroxine Sodium (Synthroid) 88 mcg ACBREAKFAST GT 12/29/16 06:30 01/28/17 06:29 01/08/17 06:17 Mirtazapine (Remeron) 30 mg BEDTIME GT 01/08/17 21:00 02/07/17 20:59 Nitroglycerin (Ntg) 0.4 mg Q5MIN X 3 DOSES PRN SL Prn Chest Pain 12/22/16 12:00 01/18/17 17:19 Ondansetron HCl (Zofran) 4 mg Q6H PRN IVP Nausea & Vomiting 12/22/16 12:00 01/16/17 11:59 Pioglitazone HCl (Actos) 15 mg DAILY GT 12/23/16 09:00 01/17/17 09:29 01/07/17 08:34 Polyethylene Glycol (Miralax) 17 gm DAILYPRN PRN ORAL Constipation 12/22/16 12:00 01/19/17 11:59 Sennosides (Senokot) 8.6 mg DAILY ORAL 01/03/17 21:00 02/02/17 20:59 01/07/17 08:34 Item Value Date Time Bedside Blood Glucose 74 mg/dl 01/08/17 0626 Bedside Blood Glucose 86 mg/dl 01/07/17 2100 Bedside Blood Glucose 114 mg/dl 01/07/17 1719 Bedside Blood Glucose 84 mg/dl 01/07/17 1139 Bedside Blood Glucose 98 mg/dl 01/07/17 0631 ANGEL RICHARDSON Jan 08, 2017 06:31
--- NOTE | 2017-01-08 06:31 | General Progress Note ---
Assessment/Plan Problem List: (1) Diabetes mellitus ICD Codes: E11.9 - Type 2 diabetes mellitus without complications SNOMED: 72906600 (2) Hypothyroidism ICD Codes: E03.9 - Hypothyroidism, unspecified SNOMED: 86288691 (3) COPD (chronic obstructive pulmonary disease) ICD Codes: J44.9 - Chronic obstructive pulmonary disease, unspecified SNOMED: 97981388 (4) CHF (congestive heart failure) ICD Codes: I50.9 - Heart failure, unspecified SNOMED: 56278486 Assessment/Plan continue Levothyroxine 88 mcg DC Actos 15 mg continue SSI no need for insulin or Actos after DC Subjective Allergies: Coded Allergies: ACETAMINOPHEN (Unverified Allergy, Unknown, 12/17/16) CODEINE (Unverified Allergy, Unknown, 03/04/14) IODINE (Unverified Allergy, Unknown, 12/17/16) All Systems: reviewed and negative except above Subjective events noted Objective Last 24 Hour Vital Signs Date Time Temp Pulse Resp B/P (MAP) Pulse Ox O2 Delivery O2 Flow Rate FiO2 01/08/17 03:52 97.0 56 20 120/61 98 Room Air 01/07/17 23:52 97.2 65 20 87/48 99 Room Air 01/07/17 20:08 96 Nasal Cannula 3.0 32 01/07/17 20:08 Nasal Cannula 3.0 32 01/07/17 19:51 96.3 53 20 98/50 99 Room Air 01/07/17 16:00 97.5 51 18 107/53 98 Nasal Cannula 2.0 01/07/17 12:00 96.6 56 20 106/55 99 Nasal Cannula 2.0 01/07/17 08:50 50 01/07/17 08:00 97.2 61 18 88/51 100 Nasal Cannula 2.0 Height (Feet): 5 Height (Inches): 7.00 Weight (Pounds): 126 General Appearance: no apparent distress Neck: normal alignment Cardiovascular: normal rate Respiratory/Chest: decreased breath sounds Abdomen: normal bowel sounds Pelvis: normal external exam Edema: no edema noted Arm (L), no edema noted Arm (R), no edema noted Leg (L), no edema noted Leg (R), no edema noted Pedal (L), no edema noted Pedal (R), no edema noted Generalized Objective Current Medications Medications (Trade) Dose Ordered Sig/Sandra Route PRN Reason Start Time Stop Time Status Last Admin Dose Admin Al Hydroxide/Mg Hydroxide (Mylanta II) 30 ml Q6H PRN GT dyspepsia 12/22/16 12:00 01/16/17 11:59 12/27/16 21:50 Chlorhexidine Gluconate (Chioma-Hex 2%) 1 applic DAILY@2000 TOPIC 12/23/16 20:00 01/22/17 19:59 01/07/17 20:00 Dextrose (Dextrose 50%) STAT PRN IV Hypoglycemia 12/22/16 12:00 01/19/17 11:59 Digoxin (Lanoxin) 0.25 mg DAILY GT 12/23/16 09:00 01/17/17 09:29 01/04/17 10:55 Docusate Sodium (Colace) 200 mg TIDPRN PRN ORAL Constipation 2nd line agent 01/03/17 20:00 02/02/17 19:59 Gabapentin (Neurontin) 300 mg TID GT 12/22/16 13:00 01/18/17 13:59 01/07/17 18:09 Heparin Sodium (Porcine) (Heparin 5000 units/ml) 5,000 units EVERY 12 HOURS SUBQ 12/22/16 21:00 01/17/17 08:59 01/07/17 20:32 Hydroxyzine HCl (Atarax) 25 mg BID GT 12/22/16 18:00 01/17/17 08:59 01/07/17 18:09 Insulin Aspart (NovoLOG) AC+HS SUBQ 12/30/16 21:00 01/17/17 17:59 01/07/17 17:19 Levothyroxine Sodium (Synthroid) 88 mcg ACBREAKFAST GT 12/29/16 06:30 01/28/17 06:29 01/08/17 06:17 Mirtazapine (Remeron) 30 mg BEDTIME GT 01/08/17 21:00 02/07/17 20:59 Nitroglycerin (Ntg) 0.4 mg Q5MIN X 3 DOSES PRN SL Prn Chest Pain 12/22/16 12:00 01/18/17 17:19 Ondansetron HCl (Zofran) 4 mg Q6H PRN IVP Nausea & Vomiting 12/22/16 12:00 01/16/17 11:59 Pioglitazone HCl (Actos) 15 mg DAILY GT 12/23/16 09:00 01/17/17 09:29 01/07/17 08:34 Polyethylene Glycol (Miralax) 17 gm DAILYPRN PRN ORAL Constipation 12/22/16 12:00 01/19/17 11:59 Sennosides (Senokot) 8.6 mg DAILY ORAL 01/03/17 21:00 02/02/17 20:59 01/07/17 08:34 Item Value Date Time Bedside Blood Glucose 74 mg/dl 01/08/17 0626 Bedside Blood Glucose 86 mg/dl 01/07/17 2100 Bedside Blood Glucose 114 mg/dl 01/07/17 1719 Bedside Blood Glucose 84 mg/dl 01/07/17 1139 Bedside Blood Glucose 98 mg/dl 01/07/17 0631 ANGEL RICHARDSON Jan 08, 2017 06:31
--- NOTE | 2017-01-08 06:31 | General Progress Note ---
Assessment/Plan Problem List: (1) Diabetes mellitus ICD Codes: E11.9 - Type 2 diabetes mellitus without complications SNOMED: 08449383 (2) Hypothyroidism ICD Codes: E03.9 - Hypothyroidism, unspecified SNOMED: 50646068 (3) COPD (chronic obstructive pulmonary disease) ICD Codes: J44.9 - Chronic obstructive pulmonary disease, unspecified SNOMED: 60080150 (4) CHF (congestive heart failure) ICD Codes: I50.9 - Heart failure, unspecified SNOMED: 70383389 Assessment/Plan continue Levothyroxine 88 mcg DC Actos 15 mg continue SSI no need for insulin or Actos after DC Subjective Allergies: Coded Allergies: ACETAMINOPHEN (Unverified Allergy, Unknown, 12/17/16) CODEINE (Unverified Allergy, Unknown, 03/04/14) IODINE (Unverified Allergy, Unknown, 12/17/16) All Systems: reviewed and negative except above Subjective events noted Objective Last 24 Hour Vital Signs Date Time Temp Pulse Resp B/P (MAP) Pulse Ox O2 Delivery O2 Flow Rate FiO2 01/08/17 03:52 97.0 56 20 120/61 98 Room Air 01/07/17 23:52 97.2 65 20 87/48 99 Room Air 01/07/17 20:08 96 Nasal Cannula 3.0 32 01/07/17 20:08 Nasal Cannula 3.0 32 01/07/17 19:51 96.3 53 20 98/50 99 Room Air 01/07/17 16:00 97.5 51 18 107/53 98 Nasal Cannula 2.0 01/07/17 12:00 96.6 56 20 106/55 99 Nasal Cannula 2.0 01/07/17 08:50 50 01/07/17 08:00 97.2 61 18 88/51 100 Nasal Cannula 2.0 Height (Feet): 5 Height (Inches): 7.00 Weight (Pounds): 126 General Appearance: no apparent distress Neck: normal alignment Cardiovascular: normal rate Respiratory/Chest: decreased breath sounds Abdomen: normal bowel sounds Pelvis: normal external exam Edema: no edema noted Arm (L), no edema noted Arm (R), no edema noted Leg (L), no edema noted Leg (R), no edema noted Pedal (L), no edema noted Pedal (R), no edema noted Generalized Objective Current Medications Medications (Trade) Dose Ordered Sig/Sandra Route PRN Reason Start Time Stop Time Status Last Admin Dose Admin Al Hydroxide/Mg Hydroxide (Mylanta II) 30 ml Q6H PRN GT dyspepsia 12/22/16 12:00 01/16/17 11:59 12/27/16 21:50 Chlorhexidine Gluconate (Chioma-Hex 2%) 1 applic DAILY@2000 TOPIC 12/23/16 20:00 01/22/17 19:59 01/07/17 20:00 Dextrose (Dextrose 50%) STAT PRN IV Hypoglycemia 12/22/16 12:00 01/19/17 11:59 Digoxin (Lanoxin) 0.25 mg DAILY GT 12/23/16 09:00 01/17/17 09:29 01/04/17 10:55 Docusate Sodium (Colace) 200 mg TIDPRN PRN ORAL Constipation 2nd line agent 01/03/17 20:00 02/02/17 19:59 Gabapentin (Neurontin) 300 mg TID GT 12/22/16 13:00 01/18/17 13:59 01/07/17 18:09 Heparin Sodium (Porcine) (Heparin 5000 units/ml) 5,000 units EVERY 12 HOURS SUBQ 12/22/16 21:00 01/17/17 08:59 01/07/17 20:32 Hydroxyzine HCl (Atarax) 25 mg BID GT 12/22/16 18:00 01/17/17 08:59 01/07/17 18:09 Insulin Aspart (NovoLOG) AC+HS SUBQ 12/30/16 21:00 01/17/17 17:59 01/07/17 17:19 Levothyroxine Sodium (Synthroid) 88 mcg ACBREAKFAST GT 12/29/16 06:30 01/28/17 06:29 01/08/17 06:17 Mirtazapine (Remeron) 30 mg BEDTIME GT 01/08/17 21:00 02/07/17 20:59 Nitroglycerin (Ntg) 0.4 mg Q5MIN X 3 DOSES PRN SL Prn Chest Pain 12/22/16 12:00 01/18/17 17:19 Ondansetron HCl (Zofran) 4 mg Q6H PRN IVP Nausea & Vomiting 12/22/16 12:00 01/16/17 11:59 Pioglitazone HCl (Actos) 15 mg DAILY GT 12/23/16 09:00 01/17/17 09:29 01/07/17 08:34 Polyethylene Glycol (Miralax) 17 gm DAILYPRN PRN ORAL Constipation 12/22/16 12:00 01/19/17 11:59 Sennosides (Senokot) 8.6 mg DAILY ORAL 01/03/17 21:00 02/02/17 20:59 01/07/17 08:34 Item Value Date Time Bedside Blood Glucose 74 mg/dl 01/08/17 0626 Bedside Blood Glucose 86 mg/dl 01/07/17 2100 Bedside Blood Glucose 114 mg/dl 01/07/17 1719 Bedside Blood Glucose 84 mg/dl 01/07/17 1139 Bedside Blood Glucose 98 mg/dl 01/07/17 0631 ANGEL RICHARDSON Jan 08, 2017 06:31
[2017-01-08 06:56] LABS: ANION GAP 5 mmol/L (5-15); BLOOD UREA NITROGEN 22 mg/dL (7-18); CALCIUM 8.8 MG/DL (8.5-10.1); CARBON DIOXIDE 31 MMOL/L (21-32); CHLORIDE 109 MMOL/L (98-107); CREATININE 0.4 MG/DL (0.55-1.30); POTASSIUM 3.8 MMOL/L (3.5-5.1); SODIUM 145 MMOL/L (136-145)
[2017-01-08 07:02] LABS: BASOPHILS % (AUTO) 1.5 % (0.0-2.0); EOSINOPHILS % (AUTO) 8.5 % (0.0-3.0); HEMATOCRIT 35.5 % (37.0-47.0); HEMOGLOBIN 11.1 G/DL (12.0-16.0); LYMPHOCYTES % (AUTO) 31.7 % (20.0-45.0); MEAN CORPUSCULAR VOLUME 94 FL (80-99); MONOCYTES % (AUTO) 4.1 % (1.0-10.0); NEUTROPHILS % (AUTO) 54.2 % (45.0-75.0); PLATELET COUNT 338 K/UL (150-450); RED BLOOD COUNT 3.78 M/UL (4.20-5.40); RED CELL DISTRIBUTION WIDTH 14.5 % (11.6-14.8); WHITE BLOOD COUNT 8.9 K/UL (4.8-10.8)
[2017-01-08 08:27] VITALS: BP 104/63
[2017-01-08] MEDS: HydrOXYzine 25mg tab GT SCH ×2 (08:29→17:31)
[2017-01-08] MEDS: Sennosides 8.6mg ORAL SCH (08:29)
[2017-01-08] MEDS: Heparin 5000 units/ml inj SUBQ SCH ×2 (08:33→20:29)
[2017-01-08] MEDS: Gabapentin 300 MG/6 ML Soln GT SCH ×3 (09:00→17:31)
[2017-01-08 12:36] VITALS: BP 110/59
--- NOTE | 2017-01-08 14:25 | GI Progress Note ---
Assessment/Plan Problems: (1) PEG (percutaneous endoscopic gastrostomy) adjustment/replacement/removal ICD Codes: Z43.1 - Encounter for attention to gastrostomy SNOMED: 468313481, 575875591 (2) Chronic pain ICD Codes: G89.29 - Other chronic pain SNOMED: 60431847 (3) Diabetes mellitus ICD Codes: E11.9 - Type 2 diabetes mellitus without complications SNOMED: 21933526 (4) Hypothyroidism ICD Codes: E03.9 - Hypothyroidism, unspecified SNOMED: 38958464 Status: stable Status Narrative Discussed with Dr. Mesa. Assessment/Plan okay for DC per GI standpoint cdiff negative s/p GT removal GT site care daily/prn soft diet, push PO fu labs fu Hep C antibody Subjective Subjective tolerating diet Objective Last 24 Hour Vital Signs Date Time Temp Pulse Resp B/P (MAP) Pulse Ox O2 Delivery O2 Flow Rate FiO2 01/08/17 12:36 97.7 57 20 110/59 100 Nasal Cannula 2.0 01/08/17 08:29 63 01/08/17 08:27 98.2 63 20 104/63 95 Nasal Cannula 01/08/17 07:38 97 Nasal Cannula 2.0 28 01/08/17 07:38 Nasal Cannula 2.0 28 01/08/17 03:52 97.0 56 20 120/61 98 Room Air 01/07/17 23:52 97.2 65 20 87/48 99 Room Air 01/07/17 20:08 96 Nasal Cannula 3.0 32 01/07/17 20:08 Nasal Cannula 3.0 32 01/07/17 19:51 96.3 53 20 98/50 99 Room Air 01/07/17 16:00 97.5 51 18 107/53 98 Nasal Cannula 2.0 Intake and Output 01/08/17 01/09/17 19:00 07:00 Intake Total 360 ml Balance 360 ml Intake Oral 360 ml Laboratory Tests Test 01/08/17 05:20 White Blood Count 8.9 K/UL (4.8-10.8) Red Blood Count 3.78 M/UL (4.20-5.40) L Hemoglobin 11.1 G/DL (12.0-16.0) L Hematocrit 35.5 % (37.0-47.0) L Mean Corpuscular Volume 94 FL (80-99) Mean Corpuscular Hemoglobin 29.5 PG (27.0-31.0) Mean Corpuscular Hemoglobin Concent 31.4 G/DL (32.0-36.0) L Red Cell Distribution Width 14.5 % (11.6-14.8) Platelet Count 338 K/UL (150-450) Mean Platelet Volume 6.6 FL (6.5-10.1) Neutrophils (%) (Auto) 54.2 % (45.0-75.0) Lymphocytes (%) (Auto) 31.7 % (20.0-45.0) Monocytes (%) (Auto) 4.1 % (1.0-10.0) Eosinophils (%) (Auto) 8.5 % (0.0-3.0) H Basophils (%) (Auto) 1.5 % (0.0-2.0) Sodium Level 145 MMOL/L (136-145) Potassium Level 3.8 MMOL/L (3.5-5.1) Chloride Level 109 MMOL/L (98-107) H Carbon Dioxide Level 31 MMOL/L (21-32) Anion Gap 5 mmol/L (5-15) Blood Urea Nitrogen 22 mg/dL (7-18) H Creatinine 0.4 MG/DL (0.55-1.30) L Estimat Glomerular Filtration Rate > 60 mL/min (>60) Glucose Level 67 MG/DL (74-106) L Calcium Level 8.8 MG/DL (8.5-10.1) Height (Feet): 5 Height (Inches): 7.00 Weight (Pounds): 126 General Appearance: WD/WN, no apparent distress, alert Cardiovascular: normal rate Respiratory/Chest: normal breath sounds, no respiratory distress Abdominal Exam: normal bowel sounds, non tender, soft, GT site - s/p removal Shruti Roberson N.P. Jan 08, 2017 14:25
--- NOTE | 2017-01-08 14:25 | GI Progress Note ---
Assessment/Plan Problems: (1) PEG (percutaneous endoscopic gastrostomy) adjustment/replacement/removal ICD Codes: Z43.1 - Encounter for attention to gastrostomy SNOMED: 258270472, 872635375 (2) Chronic pain ICD Codes: G89.29 - Other chronic pain SNOMED: 64148161 (3) Diabetes mellitus ICD Codes: E11.9 - Type 2 diabetes mellitus without complications SNOMED: 53954125 (4) Hypothyroidism ICD Codes: E03.9 - Hypothyroidism, unspecified SNOMED: 58359045 Status: stable Status Narrative Discussed with Dr. Mesa. Assessment/Plan okay for DC per GI standpoint cdiff negative s/p GT removal GT site care daily/prn soft diet, push PO fu labs fu Hep C antibody Subjective Subjective tolerating diet Objective Last 24 Hour Vital Signs Date Time Temp Pulse Resp B/P (MAP) Pulse Ox O2 Delivery O2 Flow Rate FiO2 01/08/17 12:36 97.7 57 20 110/59 100 Nasal Cannula 2.0 01/08/17 08:29 63 01/08/17 08:27 98.2 63 20 104/63 95 Nasal Cannula 01/08/17 07:38 97 Nasal Cannula 2.0 28 01/08/17 07:38 Nasal Cannula 2.0 28 01/08/17 03:52 97.0 56 20 120/61 98 Room Air 01/07/17 23:52 97.2 65 20 87/48 99 Room Air 01/07/17 20:08 96 Nasal Cannula 3.0 32 01/07/17 20:08 Nasal Cannula 3.0 32 01/07/17 19:51 96.3 53 20 98/50 99 Room Air 01/07/17 16:00 97.5 51 18 107/53 98 Nasal Cannula 2.0 Intake and Output 01/08/17 01/09/17 19:00 07:00 Intake Total 360 ml Balance 360 ml Intake Oral 360 ml Laboratory Tests Test 01/08/17 05:20 White Blood Count 8.9 K/UL (4.8-10.8) Red Blood Count 3.78 M/UL (4.20-5.40) L Hemoglobin 11.1 G/DL (12.0-16.0) L Hematocrit 35.5 % (37.0-47.0) L Mean Corpuscular Volume 94 FL (80-99) Mean Corpuscular Hemoglobin 29.5 PG (27.0-31.0) Mean Corpuscular Hemoglobin Concent 31.4 G/DL (32.0-36.0) L Red Cell Distribution Width 14.5 % (11.6-14.8) Platelet Count 338 K/UL (150-450) Mean Platelet Volume 6.6 FL (6.5-10.1) Neutrophils (%) (Auto) 54.2 % (45.0-75.0) Lymphocytes (%) (Auto) 31.7 % (20.0-45.0) Monocytes (%) (Auto) 4.1 % (1.0-10.0) Eosinophils (%) (Auto) 8.5 % (0.0-3.0) H Basophils (%) (Auto) 1.5 % (0.0-2.0) Sodium Level 145 MMOL/L (136-145) Potassium Level 3.8 MMOL/L (3.5-5.1) Chloride Level 109 MMOL/L (98-107) H Carbon Dioxide Level 31 MMOL/L (21-32) Anion Gap 5 mmol/L (5-15) Blood Urea Nitrogen 22 mg/dL (7-18) H Creatinine 0.4 MG/DL (0.55-1.30) L Estimat Glomerular Filtration Rate > 60 mL/min (>60) Glucose Level 67 MG/DL (74-106) L Calcium Level 8.8 MG/DL (8.5-10.1) Height (Feet): 5 Height (Inches): 7.00 Weight (Pounds): 126 General Appearance: WD/WN, no apparent distress, alert Cardiovascular: normal rate Respiratory/Chest: normal breath sounds, no respiratory distress Abdominal Exam: normal bowel sounds, non tender, soft, GT site - s/p removal Shruti Roberson N.P. Jan 08, 2017 14:25
--- NOTE | 2017-01-08 14:25 | GI Progress Note ---
Assessment/Plan Problems: (1) PEG (percutaneous endoscopic gastrostomy) adjustment/replacement/removal ICD Codes: Z43.1 - Encounter for attention to gastrostomy SNOMED: 032569507, 239118275 (2) Chronic pain ICD Codes: G89.29 - Other chronic pain SNOMED: 05299620 (3) Diabetes mellitus ICD Codes: E11.9 - Type 2 diabetes mellitus without complications SNOMED: 64693406 (4) Hypothyroidism ICD Codes: E03.9 - Hypothyroidism, unspecified SNOMED: 20678601 Status: stable Status Narrative Discussed with Dr. Mesa. Assessment/Plan okay for DC per GI standpoint cdiff negative s/p GT removal GT site care daily/prn soft diet, push PO fu labs fu Hep C antibody Subjective Subjective tolerating diet Objective Last 24 Hour Vital Signs Date Time Temp Pulse Resp B/P (MAP) Pulse Ox O2 Delivery O2 Flow Rate FiO2 01/08/17 12:36 97.7 57 20 110/59 100 Nasal Cannula 2.0 01/08/17 08:29 63 01/08/17 08:27 98.2 63 20 104/63 95 Nasal Cannula 01/08/17 07:38 97 Nasal Cannula 2.0 28 01/08/17 07:38 Nasal Cannula 2.0 28 01/08/17 03:52 97.0 56 20 120/61 98 Room Air 01/07/17 23:52 97.2 65 20 87/48 99 Room Air 01/07/17 20:08 96 Nasal Cannula 3.0 32 01/07/17 20:08 Nasal Cannula 3.0 32 01/07/17 19:51 96.3 53 20 98/50 99 Room Air 01/07/17 16:00 97.5 51 18 107/53 98 Nasal Cannula 2.0 Intake and Output 01/08/17 01/09/17 19:00 07:00 Intake Total 360 ml Balance 360 ml Intake Oral 360 ml Laboratory Tests Test 01/08/17 05:20 White Blood Count 8.9 K/UL (4.8-10.8) Red Blood Count 3.78 M/UL (4.20-5.40) L Hemoglobin 11.1 G/DL (12.0-16.0) L Hematocrit 35.5 % (37.0-47.0) L Mean Corpuscular Volume 94 FL (80-99) Mean Corpuscular Hemoglobin 29.5 PG (27.0-31.0) Mean Corpuscular Hemoglobin Concent 31.4 G/DL (32.0-36.0) L Red Cell Distribution Width 14.5 % (11.6-14.8) Platelet Count 338 K/UL (150-450) Mean Platelet Volume 6.6 FL (6.5-10.1) Neutrophils (%) (Auto) 54.2 % (45.0-75.0) Lymphocytes (%) (Auto) 31.7 % (20.0-45.0) Monocytes (%) (Auto) 4.1 % (1.0-10.0) Eosinophils (%) (Auto) 8.5 % (0.0-3.0) H Basophils (%) (Auto) 1.5 % (0.0-2.0) Sodium Level 145 MMOL/L (136-145) Potassium Level 3.8 MMOL/L (3.5-5.1) Chloride Level 109 MMOL/L (98-107) H Carbon Dioxide Level 31 MMOL/L (21-32) Anion Gap 5 mmol/L (5-15) Blood Urea Nitrogen 22 mg/dL (7-18) H Creatinine 0.4 MG/DL (0.55-1.30) L Estimat Glomerular Filtration Rate > 60 mL/min (>60) Glucose Level 67 MG/DL (74-106) L Calcium Level 8.8 MG/DL (8.5-10.1) Height (Feet): 5 Height (Inches): 7.00 Weight (Pounds): 126 General Appearance: WD/WN, no apparent distress, alert Cardiovascular: normal rate Respiratory/Chest: normal breath sounds, no respiratory distress Abdominal Exam: normal bowel sounds, non tender, soft, GT site - s/p removal Shruti Roberson N.P. Jan 08, 2017 14:25
[2017-01-08 16:07] VITALS: BP 109/56
--- NOTE | 2017-01-08 16:28 | Pulmonology Progress Note ---
Assessment/Plan Problems: (1) Purulent bronchitis (2) Acute and chronic respiratory failure (nxowj-[id number]-lwzccst) (3) Tracheostomy malfunction (4) COPD (chronic obstructive pulmonary disease) (5) Interstitial lung disease (6) Diabetes mellitus (7) Hypothyroidism Assessment/Plan symptomatic treatment tolerating off trach, respiratory treatment check sputum psych evaluation all notes reviewed awaiting discharge Subjective ROS Limited/Unobtainable: No Constitutional: Reports: no symptoms HEENT: Repors: no symptoms Respiratory: Reports: no symptoms Allergies: Coded Allergies: ACETAMINOPHEN (Unverified Allergy, Unknown, 12/17/16) CODEINE (Unverified Allergy, Unknown, 03/04/14) IODINE (Unverified Allergy, Unknown, 12/17/16) Objective Last 24 Hour Vital Signs Date Time Temp Pulse Resp B/P (MAP) Pulse Ox O2 Delivery O2 Flow Rate FiO2 01/08/17 16:07 98.0 57 20 109/56 100 Nasal Cannula 2.0 01/08/17 12:36 97.7 57 20 110/59 100 Nasal Cannula 2.0 01/08/17 08:29 63 01/08/17 08:27 98.2 63 20 104/63 95 Nasal Cannula 01/08/17 07:38 97 Nasal Cannula 2.0 28 01/08/17 07:38 Nasal Cannula 2.0 28 01/08/17 03:52 97.0 56 20 120/61 98 Room Air 01/07/17 23:52 97.2 65 20 87/48 99 Room Air 01/07/17 20:08 96 Nasal Cannula 3.0 32 01/07/17 20:08 Nasal Cannula 3.0 32 01/07/17 19:51 96.3 53 20 98/50 99 Room Air Intake and Output 01/08/17 01/09/17 19:00 07:00 Intake Total 360 ml Balance 360 ml Intake Oral 360 ml Objective General Appearance: no acute distress, cachetic HEENT: normocephalic, atraumatic Respiratory/Chest: chest wall non-tender, lungs clear, normal breath sounds Cardiovascular: normal peripheral pulses, normal rate Abdomen: normal bowel sounds, soft, non tender Genitourinary: normal external genitalia Extremities: no cyanosis Skin: no rash Laboratory Tests 01/08/17 05:20: White Blood Count 8.9, Red Blood Count 3.78L, Hemoglobin 11.1L, Hematocrit 35.5L , Mean Corpuscular Volume 94, Mean Corpuscular Hemoglobin 29.5, Mean Corpuscular Hemoglobin Concent 31.4L, Red Cell Distribution Width 14.5, Platelet Count 338, Mean Platelet Volume 6.6, Neutrophils (%) (Auto) 54.2, Lymphocytes (%) (Auto) 31.7, Monocytes (%) (Auto) 4.1, Eosinophils (%) (Auto) 8.5H, Basophils (%) (Auto) 1.5, Sodium Level 145, Potassium Level 3.8, Chloride Level 109H, Carbon Dioxide Level 31, Anion Gap 5, Blood Urea Nitrogen 22H, Creatinine 0.4L, Estimat Glomerular Filtration Rate > 60, Glucose Level 67L, Calcium Level 8.8 Current Medications Medications (Trade) Dose Ordered Sig/Sandra Route PRN Reason Start Time Stop Time Status Last Admin Dose Admin Al Hydroxide/Mg Hydroxide (Mylanta II) 30 ml Q6H PRN GT dyspepsia 12/22/16 12:00 01/16/17 11:59 12/27/16 21:50 Chlorhexidine Gluconate (Chioma-Hex 2%) 1 applic DAILY@2000 TOPIC 12/23/16 20:00 01/22/17 19:59 01/07/17 20:00 Dextrose (Dextrose 50%) STAT PRN IV Hypoglycemia 12/22/16 12:00 01/19/17 11:59 Digoxin (Lanoxin) 0.25 mg DAILY GT 12/23/16 09:00 01/17/17 09:29 01/08/17 08:29 Docusate Sodium (Colace) 200 mg TIDPRN PRN ORAL Constipation 2nd line agent 01/03/17 20:00 02/02/17 19:59 Gabapentin (Neurontin) 300 mg TID GT 12/22/16 13:00 01/18/17 13:59 01/08/17 13:22 Heparin Sodium (Porcine) (Heparin 5000 units/ml) 5,000 units EVERY 12 HOURS SUBQ 12/22/16 21:00 01/17/17 08:59 01/08/17 08:33 Hydroxyzine HCl (Atarax) 25 mg BID GT 12/22/16 18:00 01/17/17 08:59 01/08/17 08:29 Insulin Aspart (NovoLOG) AC+HS SUBQ 12/30/16 21:00 01/17/17 17:59 01/07/17 17:19 Levothyroxine Sodium (Synthroid) 88 mcg ACBREAKFAST GT 12/29/16 06:30 01/28/17 06:29 01/08/17 06:17 Mirtazapine (Remeron) 30 mg BEDTIME GT 01/08/17 21:00 02/07/17 20:59 Nitroglycerin (Ntg) 0.4 mg Q5MIN X 3 DOSES PRN SL Prn Chest Pain 12/22/16 12:00 01/18/17 17:19 Ondansetron HCl (Zofran) 4 mg Q6H PRN IVP Nausea & Vomiting 12/22/16 12:00 01/16/17 11:59 Polyethylene Glycol (Miralax) 17 gm DAILYPRN PRN ORAL Constipation 12/22/16 12:00 01/19/17 11:59 Sennosides (Senokot) 8.6 mg DAILY ORAL 01/03/17 21:00 02/02/17 20:59 01/08/17 08:29 DEDRICK SOLANO Jan 08, 2017 16:28
--- NOTE | 2017-01-08 19:08 | General Progress Note ---
Assessment/Plan Status: stable, progressing Assessment/Plan mdd cont current meds provided ro/st Subjective Neurologic/Psychiatric: Reports: anxiety, depressed, emotional problems Allergies: Coded Allergies: ACETAMINOPHEN (Unverified Allergy, Unknown, 12/17/16) CODEINE (Unverified Allergy, Unknown, 03/04/14) IODINE (Unverified Allergy, Unknown, 12/17/16) Subjective pt is calm c/o long hospitalization Objective Last 24 Hour Vital Signs Date Time Temp Pulse Resp B/P (MAP) Pulse Ox O2 Delivery O2 Flow Rate FiO2 01/08/17 16:07 98.0 57 20 109/56 100 Nasal Cannula 2.0 01/08/17 12:36 97.7 57 20 110/59 100 Nasal Cannula 2.0 01/08/17 08:29 63 01/08/17 08:27 98.2 63 20 104/63 95 Nasal Cannula 01/08/17 07:38 97 Nasal Cannula 2.0 28 01/08/17 07:38 Nasal Cannula 2.0 28 01/08/17 03:52 97.0 56 20 120/61 98 Room Air 01/07/17 23:52 97.2 65 20 87/48 99 Room Air 01/07/17 20:08 96 Nasal Cannula 3.0 32 01/07/17 20:08 Nasal Cannula 3.0 32 01/07/17 19:51 96.3 53 20 98/50 99 Room Air Intake and Output 01/08/17 01/09/17 19:00 07:00 Intake Total 600 ml Balance 600 ml Intake Oral 600 ml # Voids 3 Laboratory Tests 01/08/17 05:20: White Blood Count 8.9, Red Blood Count 3.78L, Hemoglobin 11.1L, Hematocrit 35.5L , Mean Corpuscular Volume 94, Mean Corpuscular Hemoglobin 29.5, Mean Corpuscular Hemoglobin Concent 31.4L, Red Cell Distribution Width 14.5, Platelet Count 338, Mean Platelet Volume 6.6, Neutrophils (%) (Auto) 54.2, Lymphocytes (%) (Auto) 31.7, Monocytes (%) (Auto) 4.1, Eosinophils (%) (Auto) 8.5H, Basophils (%) (Auto) 1.5, Sodium Level 145, Potassium Level 3.8, Chloride Level 109H, Carbon Dioxide Level 31, Anion Gap 5, Blood Urea Nitrogen 22H, Creatinine 0.4L, Estimat Glomerular Filtration Rate > 60, Glucose Level 67L, Calcium Level 8.8 Height (Feet): 5 Height (Inches): 7.00 Weight (Pounds): 126 General Appearance: no apparent distress, alert, overweight Neurologic: alert, oriented x 3, responsive, depressed affect Kallie Fernandez M.D. Jan 08, 2017 19:08
[2017-01-08] MEDS: Dyna-Hex 2% Top Sol 2oz TOPIC SCH (20:26)
[2017-01-08] MEDS: Ketorolac 30mg Inj IV PRN (20:26)
[2017-01-08 20:51] VITALS: BP 99/56
[2017-01-08 23:47] VITALS: BP 112/64
[2017-01-09] MEDS: Ketorolac 30mg Inj IV PRN ×4 (03:02→23:26)
[2017-01-09 04:00] VITALS: BP 110/54
--- NOTE | 2017-01-09 06:21 | General Progress Note ---
Assessment/Plan Problem List: (1) Diabetes mellitus ICD Codes: E11.9 - Type 2 diabetes mellitus without complications SNOMED: 91613205 (2) Hypothyroidism ICD Codes: E03.9 - Hypothyroidism, unspecified SNOMED: 00949002 (3) COPD (chronic obstructive pulmonary disease) ICD Codes: J44.9 - Chronic obstructive pulmonary disease, unspecified SNOMED: 46399279 (4) CHF (congestive heart failure) ICD Codes: I50.9 - Heart failure, unspecified SNOMED: 04257116 Assessment/Plan continue Levothyroxine 88 mcg continue SSI no need for insulin or Actos after DC Subjective Allergies: Coded Allergies: ACETAMINOPHEN (Unverified Allergy, Unknown, 12/17/16) CODEINE (Unverified Allergy, Unknown, 03/04/14) IODINE (Unverified Allergy, Unknown, 12/17/16) All Systems: reviewed and negative except above Subjective events noted Objective Last 24 Hour Vital Signs Date Time Temp Pulse Resp B/P (MAP) Pulse Ox O2 Delivery O2 Flow Rate FiO2 01/09/17 04:00 96.9 60 20 110/54 Nasal Cannula 2.0 01/08/17 23:47 97.7 56 19 112/64 98 Nasal Cannula 01/08/17 20:51 97.7 55 20 99/56 99 Nasal Cannula 15.0 01/08/17 16:07 98.0 57 20 109/56 100 Nasal Cannula 2.0 01/08/17 12:36 97.7 57 20 110/59 100 Nasal Cannula 2.0 01/08/17 08:29 63 01/08/17 08:27 98.2 63 20 104/63 95 Nasal Cannula 01/08/17 07:38 97 Nasal Cannula 2.0 28 01/08/17 07:38 Nasal Cannula 2.0 28 Height (Feet): 5 Height (Inches): 7.00 Weight (Pounds): 126 General Appearance: no apparent distress Neck: normal alignment Cardiovascular: normal rate Respiratory/Chest: decreased breath sounds Abdomen: normal bowel sounds Edema: no edema noted Arm (L), no edema noted Arm (R), no edema noted Leg (L), no edema noted Leg (R), no edema noted Pedal (L), no edema noted Pedal (R), no edema noted Generalized Objective Current Medications Medications (Trade) Dose Ordered Sig/Sandra Route PRN Reason Start Time Stop Time Status Last Admin Dose Admin Al Hydroxide/Mg Hydroxide (Mylanta II) 30 ml Q6H PRN GT dyspepsia 12/22/16 12:00 01/16/17 11:59 12/27/16 21:50 Chlorhexidine Gluconate (Chioma-Hex 2%) 1 applic DAILY@2000 TOPIC 12/23/16 20:00 01/22/17 19:59 01/08/17 20:26 Dextrose (Dextrose 50%) STAT PRN IV Hypoglycemia 12/22/16 12:00 01/19/17 11:59 Digoxin (Lanoxin) 0.25 mg DAILY GT 12/23/16 09:00 01/17/17 09:29 01/08/17 08:29 Docusate Sodium (Colace) 200 mg TIDPRN PRN ORAL Constipation 2nd line agent 01/03/17 20:00 02/02/17 19:59 Gabapentin (Neurontin) 300 mg TID GT 12/22/16 13:00 01/18/17 13:59 01/08/17 17:31 Heparin Sodium (Porcine) (Heparin 5000 units/ml) 5,000 units EVERY 12 HOURS SUBQ 12/22/16 21:00 01/17/17 08:59 01/08/17 20:29 Hydroxyzine HCl (Atarax) 25 mg BID GT 12/22/16 18:00 01/17/17 08:59 01/08/17 17:31 Ketorolac Tromethamine (Toradol 30mg) 15 mg Q6H PRN IV Moderate Pain (Pain Scale 4-6) 01/08/17 20:15 01/13/17 20:14 01/09/17 03:02 Levothyroxine Sodium (Synthroid) 88 mcg ACBREAKFAST GT 12/29/16 06:30 01/28/17 06:29 01/09/17 05:48 Mirtazapine (Remeron) 30 mg BEDTIME GT 01/08/17 21:00 02/07/17 20:59 01/08/17 20:26 Nitroglycerin (Ntg) 0.4 mg Q5MIN X 3 DOSES PRN SL Prn Chest Pain 12/22/16 12:00 01/18/17 17:19 Ondansetron HCl (Zofran) 4 mg Q6H PRN IVP Nausea & Vomiting 12/22/16 12:00 01/16/17 11:59 Polyethylene Glycol (Miralax) 17 gm DAILYPRN PRN ORAL Constipation 12/22/16 12:00 01/19/17 11:59 Sennosides (Senokot) 8.6 mg DAILY ORAL 01/03/17 21:00 02/02/17 20:59 01/08/17 08:29 Item Value Date Time Bedside Blood Glucose 76 mg/dl 01/08/17 1630 Bedside Blood Glucose 85 mg/dl 01/08/17 1138 Bedside Blood Glucose 74 mg/dl 01/08/17 0630 ANGEL RICHARDSON Jan 09, 2017 06:21
--- NOTE | 2017-01-09 06:21 | General Progress Note ---
Assessment/Plan Problem List: (1) Diabetes mellitus ICD Codes: E11.9 - Type 2 diabetes mellitus without complications SNOMED: 34993129 (2) Hypothyroidism ICD Codes: E03.9 - Hypothyroidism, unspecified SNOMED: 62420464 (3) COPD (chronic obstructive pulmonary disease) ICD Codes: J44.9 - Chronic obstructive pulmonary disease, unspecified SNOMED: 13487128 (4) CHF (congestive heart failure) ICD Codes: I50.9 - Heart failure, unspecified SNOMED: 01017110 Assessment/Plan continue Levothyroxine 88 mcg continue SSI no need for insulin or Actos after DC Subjective Allergies: Coded Allergies: ACETAMINOPHEN (Unverified Allergy, Unknown, 12/17/16) CODEINE (Unverified Allergy, Unknown, 03/04/14) IODINE (Unverified Allergy, Unknown, 12/17/16) All Systems: reviewed and negative except above Subjective events noted Objective Last 24 Hour Vital Signs Date Time Temp Pulse Resp B/P (MAP) Pulse Ox O2 Delivery O2 Flow Rate FiO2 01/09/17 04:00 96.9 60 20 110/54 Nasal Cannula 2.0 01/08/17 23:47 97.7 56 19 112/64 98 Nasal Cannula 01/08/17 20:51 97.7 55 20 99/56 99 Nasal Cannula 15.0 01/08/17 16:07 98.0 57 20 109/56 100 Nasal Cannula 2.0 01/08/17 12:36 97.7 57 20 110/59 100 Nasal Cannula 2.0 01/08/17 08:29 63 01/08/17 08:27 98.2 63 20 104/63 95 Nasal Cannula 01/08/17 07:38 97 Nasal Cannula 2.0 28 01/08/17 07:38 Nasal Cannula 2.0 28 Height (Feet): 5 Height (Inches): 7.00 Weight (Pounds): 126 General Appearance: no apparent distress Neck: normal alignment Cardiovascular: normal rate Respiratory/Chest: decreased breath sounds Abdomen: normal bowel sounds Edema: no edema noted Arm (L), no edema noted Arm (R), no edema noted Leg (L), no edema noted Leg (R), no edema noted Pedal (L), no edema noted Pedal (R), no edema noted Generalized Objective Current Medications Medications (Trade) Dose Ordered Sig/Sandra Route PRN Reason Start Time Stop Time Status Last Admin Dose Admin Al Hydroxide/Mg Hydroxide (Mylanta II) 30 ml Q6H PRN GT dyspepsia 12/22/16 12:00 01/16/17 11:59 12/27/16 21:50 Chlorhexidine Gluconate (Chioma-Hex 2%) 1 applic DAILY@2000 TOPIC 12/23/16 20:00 01/22/17 19:59 01/08/17 20:26 Dextrose (Dextrose 50%) STAT PRN IV Hypoglycemia 12/22/16 12:00 01/19/17 11:59 Digoxin (Lanoxin) 0.25 mg DAILY GT 12/23/16 09:00 01/17/17 09:29 01/08/17 08:29 Docusate Sodium (Colace) 200 mg TIDPRN PRN ORAL Constipation 2nd line agent 01/03/17 20:00 02/02/17 19:59 Gabapentin (Neurontin) 300 mg TID GT 12/22/16 13:00 01/18/17 13:59 01/08/17 17:31 Heparin Sodium (Porcine) (Heparin 5000 units/ml) 5,000 units EVERY 12 HOURS SUBQ 12/22/16 21:00 01/17/17 08:59 01/08/17 20:29 Hydroxyzine HCl (Atarax) 25 mg BID GT 12/22/16 18:00 01/17/17 08:59 01/08/17 17:31 Ketorolac Tromethamine (Toradol 30mg) 15 mg Q6H PRN IV Moderate Pain (Pain Scale 4-6) 01/08/17 20:15 01/13/17 20:14 01/09/17 03:02 Levothyroxine Sodium (Synthroid) 88 mcg ACBREAKFAST GT 12/29/16 06:30 01/28/17 06:29 01/09/17 05:48 Mirtazapine (Remeron) 30 mg BEDTIME GT 01/08/17 21:00 02/07/17 20:59 01/08/17 20:26 Nitroglycerin (Ntg) 0.4 mg Q5MIN X 3 DOSES PRN SL Prn Chest Pain 12/22/16 12:00 01/18/17 17:19 Ondansetron HCl (Zofran) 4 mg Q6H PRN IVP Nausea & Vomiting 12/22/16 12:00 01/16/17 11:59 Polyethylene Glycol (Miralax) 17 gm DAILYPRN PRN ORAL Constipation 12/22/16 12:00 01/19/17 11:59 Sennosides (Senokot) 8.6 mg DAILY ORAL 01/03/17 21:00 02/02/17 20:59 01/08/17 08:29 Item Value Date Time Bedside Blood Glucose 76 mg/dl 01/08/17 1630 Bedside Blood Glucose 85 mg/dl 01/08/17 1138 Bedside Blood Glucose 74 mg/dl 01/08/17 0630 ANGEL RICHARDSON Jan 09, 2017 06:21
--- NOTE | 2017-01-09 06:21 | General Progress Note ---
Assessment/Plan Problem List: (1) Diabetes mellitus ICD Codes: E11.9 - Type 2 diabetes mellitus without complications SNOMED: 50456287 (2) Hypothyroidism ICD Codes: E03.9 - Hypothyroidism, unspecified SNOMED: 03964127 (3) COPD (chronic obstructive pulmonary disease) ICD Codes: J44.9 - Chronic obstructive pulmonary disease, unspecified SNOMED: 81568942 (4) CHF (congestive heart failure) ICD Codes: I50.9 - Heart failure, unspecified SNOMED: 09718371 Assessment/Plan continue Levothyroxine 88 mcg continue SSI no need for insulin or Actos after DC Subjective Allergies: Coded Allergies: ACETAMINOPHEN (Unverified Allergy, Unknown, 12/17/16) CODEINE (Unverified Allergy, Unknown, 03/04/14) IODINE (Unverified Allergy, Unknown, 12/17/16) All Systems: reviewed and negative except above Subjective events noted Objective Last 24 Hour Vital Signs Date Time Temp Pulse Resp B/P (MAP) Pulse Ox O2 Delivery O2 Flow Rate FiO2 01/09/17 04:00 96.9 60 20 110/54 Nasal Cannula 2.0 01/08/17 23:47 97.7 56 19 112/64 98 Nasal Cannula 01/08/17 20:51 97.7 55 20 99/56 99 Nasal Cannula 15.0 01/08/17 16:07 98.0 57 20 109/56 100 Nasal Cannula 2.0 01/08/17 12:36 97.7 57 20 110/59 100 Nasal Cannula 2.0 01/08/17 08:29 63 01/08/17 08:27 98.2 63 20 104/63 95 Nasal Cannula 01/08/17 07:38 97 Nasal Cannula 2.0 28 01/08/17 07:38 Nasal Cannula 2.0 28 Height (Feet): 5 Height (Inches): 7.00 Weight (Pounds): 126 General Appearance: no apparent distress Neck: normal alignment Cardiovascular: normal rate Respiratory/Chest: decreased breath sounds Abdomen: normal bowel sounds Edema: no edema noted Arm (L), no edema noted Arm (R), no edema noted Leg (L), no edema noted Leg (R), no edema noted Pedal (L), no edema noted Pedal (R), no edema noted Generalized Objective Current Medications Medications (Trade) Dose Ordered Sig/Sandra Route PRN Reason Start Time Stop Time Status Last Admin Dose Admin Al Hydroxide/Mg Hydroxide (Mylanta II) 30 ml Q6H PRN GT dyspepsia 12/22/16 12:00 01/16/17 11:59 12/27/16 21:50 Chlorhexidine Gluconate (Chioma-Hex 2%) 1 applic DAILY@2000 TOPIC 12/23/16 20:00 01/22/17 19:59 01/08/17 20:26 Dextrose (Dextrose 50%) STAT PRN IV Hypoglycemia 12/22/16 12:00 01/19/17 11:59 Digoxin (Lanoxin) 0.25 mg DAILY GT 12/23/16 09:00 01/17/17 09:29 01/08/17 08:29 Docusate Sodium (Colace) 200 mg TIDPRN PRN ORAL Constipation 2nd line agent 01/03/17 20:00 02/02/17 19:59 Gabapentin (Neurontin) 300 mg TID GT 12/22/16 13:00 01/18/17 13:59 01/08/17 17:31 Heparin Sodium (Porcine) (Heparin 5000 units/ml) 5,000 units EVERY 12 HOURS SUBQ 12/22/16 21:00 01/17/17 08:59 01/08/17 20:29 Hydroxyzine HCl (Atarax) 25 mg BID GT 12/22/16 18:00 01/17/17 08:59 01/08/17 17:31 Ketorolac Tromethamine (Toradol 30mg) 15 mg Q6H PRN IV Moderate Pain (Pain Scale 4-6) 01/08/17 20:15 01/13/17 20:14 01/09/17 03:02 Levothyroxine Sodium (Synthroid) 88 mcg ACBREAKFAST GT 12/29/16 06:30 01/28/17 06:29 01/09/17 05:48 Mirtazapine (Remeron) 30 mg BEDTIME GT 01/08/17 21:00 02/07/17 20:59 01/08/17 20:26 Nitroglycerin (Ntg) 0.4 mg Q5MIN X 3 DOSES PRN SL Prn Chest Pain 12/22/16 12:00 01/18/17 17:19 Ondansetron HCl (Zofran) 4 mg Q6H PRN IVP Nausea & Vomiting 12/22/16 12:00 01/16/17 11:59 Polyethylene Glycol (Miralax) 17 gm DAILYPRN PRN ORAL Constipation 12/22/16 12:00 01/19/17 11:59 Sennosides (Senokot) 8.6 mg DAILY ORAL 01/03/17 21:00 02/02/17 20:59 01/08/17 08:29 Item Value Date Time Bedside Blood Glucose 76 mg/dl 01/08/17 1630 Bedside Blood Glucose 85 mg/dl 01/08/17 1138 Bedside Blood Glucose 74 mg/dl 01/08/17 0630 ANGEL RICHARDSON Jan 09, 2017 06:21
[2017-01-09 06:49] LABS: ANION GAP 5 mmol/L (5-15); BLOOD UREA NITROGEN 17 mg/dL (7-18); CALCIUM 8.7 MG/DL (8.5-10.1); CARBON DIOXIDE 31 MMOL/L (21-32); CHLORIDE 109 MMOL/L (98-107); CREATININE 0.6 MG/DL (0.55-1.30); POTASSIUM 3.8 MMOL/L (3.5-5.1); SODIUM 145 MMOL/L (136-145)
[2017-01-09 07:01] LABS: BASOPHILS % (AUTO) 1.7 % (0.0-2.0); EOSINOPHILS % (AUTO) 7.9 % (0.0-3.0); HEMATOCRIT 34.7 % (37.0-47.0); HEMOGLOBIN 10.7 G/DL (12.0-16.0); LYMPHOCYTES % (AUTO) 31.2 % (20.0-45.0); MEAN CORPUSCULAR VOLUME 95 FL (80-99); MONOCYTES % (AUTO) 5.2 % (1.0-10.0); NEUTROPHILS % (AUTO) 53.9 % (45.0-75.0); PLATELET COUNT 333 K/UL (150-450); RED BLOOD COUNT 3.66 M/UL (4.20-5.40); WHITE BLOOD COUNT 8.4 K/UL (4.8-10.8)
[2017-01-09 08:43] VITALS: BP 102/52
[2017-01-09] MEDS: Sennosides 8.6mg ORAL SCH (09:30)
[2017-01-09] MEDS: Gabapentin 300 MG/6 ML Soln GT SCH ×3 (09:30→17:24)
[2017-01-09] MEDS: HydrOXYzine 25mg tab GT SCH ×2 (09:31→17:25)
[2017-01-09] MEDS: Heparin 5000 units/ml inj SUBQ SCH ×2 (09:36→20:20)
--- NOTE | 2017-01-09 10:39 | Wound Nurse Progress Note ---
Wound RN Progress Note Wound Consult #1 Extensive scattered stage II pressure ulcer on Sacrococcygeal, left and right buttock.- no further deterioration, continue wound care as ordered effective. #2 Left upper chest skin tear with partial thickness skin loss.-no further deterioration, -cleanse with normal saline ,pat dry , apply hydrogel to pink wound bed , apply alginate, cover with Bordered dressing ,DAILY and PRN if soiled/dislodged. #3 Mid lower back full thickness scar, resurfaced open wound-no further deterioration, continue wound care as ordered effective, resolving #4 Left trochanter intact full thickness scar tissue. -intact #5 tracheostomy site noted with two intact/clean sutures.-intact, dry #6 right lower back denuded skin from possible friction,self repositioning, resolving light pink in color.superficial patient made aware of importance for repositioning,avoid shear, and offloading sacral area. patient repositioned on side to offload sacral area, but patient repositions self on back, at possible risk for further skin breakdown due to self repositioning on only back. -keep clean and dry, provide gentle perineal care. Recommendation -Encourage repositioning. -Local wound care per protocol -Offload both heels -Heel protector on both heels -Optimize nutrition -Keep clean and dry -Turn and reposition - Apply Low air loss mattress SPR mattress for wound and skin management. -Assess and f/u accordingly for any changes MARIA LUISA SERRA Jan 09, 2017 10:39
--- NOTE | 2017-01-09 10:58 | Wound Care Consultation ---
Wound Assessment Wound Assessment : Wound Number: 1 Wound Present on Admission: No New Wound: Yes Status Change of Wound: No Wound Location Body Site Modif: right, lower Wound Location Body Site: back Wound Type: other - denuded skin from possible self reposititioning , friction. Fahad Test: Does not Fahad Wound Thickness: Partial Thickness Wound Length: 1.5 Wound Width: 1.5 Wound Depth: less than 0.1 Percent of Wound [place]/Red: 100 - pink, superficial resolving. Wound Drainage Description: Serosanguineous Wound Drainage Amount: Scant Wound Drainage Odor: None/Absent Tissue Surrounding Wound: Intact Wound General Appearance: Reddened Wound Comment #1 right mid back denuded resolving skin. Recommendation. -Local wound care as ordered -Encourage repositioning. -Keep clean and dry. -Avoid shear and friction. -Assess and notify MD for any further change of condition to skin. MARIA LUISA SERRA Jan 09, 2017 10:58
--- NOTE | 2017-01-09 10:58 | Wound Care Consultation ---
Wound Assessment Wound Assessment : Wound Number: 1 Wound Present on Admission: No New Wound: Yes Status Change of Wound: No Wound Location Body Site Modif: right, lower Wound Location Body Site: back Wound Type: other - denuded skin from possible self reposititioning , friction. Fahad Test: Does not Fahad Wound Thickness: Partial Thickness Wound Length: 1.5 Wound Width: 1.5 Wound Depth: less than 0.1 Percent of Wound [place]/Red: 100 - pink, superficial resolving. Wound Drainage Description: Serosanguineous Wound Drainage Amount: Scant Wound Drainage Odor: None/Absent Tissue Surrounding Wound: Intact Wound General Appearance: Reddened Wound Comment #1 right mid back denuded resolving skin. Recommendation. -Local wound care as ordered -Encourage repositioning. -Keep clean and dry. -Avoid shear and friction. -Assess and notify MD for any further change of condition to skin. MARIA LUISA SERRA Jan 09, 2017 10:58
--- NOTE | 2017-01-09 10:58 | Wound Care Consultation ---
Wound Assessment Wound Assessment : Wound Number: 1 Wound Present on Admission: No New Wound: Yes Status Change of Wound: No Wound Location Body Site Modif: right, lower Wound Location Body Site: back Wound Type: other - denuded skin from possible self reposititioning , friction. Fahad Test: Does not Fahad Wound Thickness: Partial Thickness Wound Length: 1.5 Wound Width: 1.5 Wound Depth: less than 0.1 Percent of Wound [place]/Red: 100 - pink, superficial resolving. Wound Drainage Description: Serosanguineous Wound Drainage Amount: Scant Wound Drainage Odor: None/Absent Tissue Surrounding Wound: Intact Wound General Appearance: Reddened Wound Comment #1 right mid back denuded resolving skin. Recommendation. -Local wound care as ordered -Encourage repositioning. -Keep clean and dry. -Avoid shear and friction. -Assess and notify MD for any further change of condition to skin. MARIA LUISA SERRA Jan 09, 2017 10:58
--- NOTE | 2017-01-09 11:39 | GI Progress Note ---
Assessment/Plan Problems: (1) PEG (percutaneous endoscopic gastrostomy) adjustment/replacement/removal ICD Codes: Z43.1 - Encounter for attention to gastrostomy SNOMED: 438822283, 151618327 (2) Chronic pain ICD Codes: G89.29 - Other chronic pain SNOMED: 64517181 (3) Diabetes mellitus ICD Codes: E11.9 - Type 2 diabetes mellitus without complications SNOMED: 11302386 (4) Hypothyroidism ICD Codes: E03.9 - Hypothyroidism, unspecified SNOMED: 71267249 Status: stable Status Narrative Discussed with Dr. Mesa. Assessment/Plan okay for DC per GI standpoint cdiff negative s/p GT removal GT site care daily/prn soft diet, push PO fu labs fu Hep C antibody Subjective Subjective tolerating diet Objective Last 24 Hour Vital Signs Date Time Temp Pulse Resp B/P (MAP) Pulse Ox O2 Delivery O2 Flow Rate FiO2 01/09/17 09:00 58 01/09/17 08:43 97.8 58 20 102/52 100 Nasal Cannula 3.0 01/09/17 07:12 Nasal Cannula 2.0 28 01/09/17 07:12 99 Nasal Cannula 2.0 28 01/09/17 04:00 96.9 60 20 110/54 Nasal Cannula 2.0 01/08/17 23:47 97.7 56 19 112/64 98 Nasal Cannula 01/08/17 20:51 97.7 55 20 99/56 99 Nasal Cannula 15.0 01/08/17 16:07 98.0 57 20 109/56 100 Nasal Cannula 2.0 01/08/17 12:36 97.7 57 20 110/59 100 Nasal Cannula 2.0 Laboratory Tests Test 01/09/17 05:20 White Blood Count 8.4 K/UL (4.8-10.8) Red Blood Count 3.66 M/UL (4.20-5.40) L Hemoglobin 10.7 G/DL (12.0-16.0) L Hematocrit 34.7 % (37.0-47.0) L Mean Corpuscular Volume 95 FL (80-99) Mean Corpuscular Hemoglobin 29.3 PG (27.0-31.0) Mean Corpuscular Hemoglobin Concent 30.9 G/DL (32.0-36.0) L Red Cell Distribution Width 15.0 % (11.6-14.8) H Platelet Count 333 K/UL (150-450) Mean Platelet Volume 6.4 FL (6.5-10.1) L Neutrophils (%) (Auto) 53.9 % (45.0-75.0) Lymphocytes (%) (Auto) 31.2 % (20.0-45.0) Monocytes (%) (Auto) 5.2 % (1.0-10.0) Eosinophils (%) (Auto) 7.9 % (0.0-3.0) H Basophils (%) (Auto) 1.7 % (0.0-2.0) Sodium Level 145 MMOL/L (136-145) Potassium Level 3.8 MMOL/L (3.5-5.1) Chloride Level 109 MMOL/L (98-107) H Carbon Dioxide Level 31 MMOL/L (21-32) Anion Gap 5 mmol/L (5-15) Blood Urea Nitrogen 17 mg/dL (7-18) Creatinine 0.6 MG/DL (0.55-1.30) Estimat Glomerular Filtration Rate > 60 mL/min (>60) Glucose Level 81 MG/DL (74-106) Calcium Level 8.7 MG/DL (8.5-10.1) Height (Feet): 5 Height (Inches): 7.00 Weight (Pounds): 126 General Appearance: WD/WN, no apparent distress, alert Cardiovascular: normal rate Respiratory/Chest: normal breath sounds, no respiratory distress Abdominal Exam: normal bowel sounds, non tender, soft Extremities: normal range of motion, non-tender Shruti Roberson N.P. Jan 09, 2017 11:39
--- NOTE | 2017-01-09 11:39 | GI Progress Note ---
Assessment/Plan Problems: (1) PEG (percutaneous endoscopic gastrostomy) adjustment/replacement/removal ICD Codes: Z43.1 - Encounter for attention to gastrostomy SNOMED: 047472202, 273980875 (2) Chronic pain ICD Codes: G89.29 - Other chronic pain SNOMED: 77033798 (3) Diabetes mellitus ICD Codes: E11.9 - Type 2 diabetes mellitus without complications SNOMED: 41953317 (4) Hypothyroidism ICD Codes: E03.9 - Hypothyroidism, unspecified SNOMED: 78461882 Status: stable Status Narrative Discussed with Dr. Mesa. Assessment/Plan okay for DC per GI standpoint cdiff negative s/p GT removal GT site care daily/prn soft diet, push PO fu labs fu Hep C antibody Subjective Subjective tolerating diet Objective Last 24 Hour Vital Signs Date Time Temp Pulse Resp B/P (MAP) Pulse Ox O2 Delivery O2 Flow Rate FiO2 01/09/17 09:00 58 01/09/17 08:43 97.8 58 20 102/52 100 Nasal Cannula 3.0 01/09/17 07:12 Nasal Cannula 2.0 28 01/09/17 07:12 99 Nasal Cannula 2.0 28 01/09/17 04:00 96.9 60 20 110/54 Nasal Cannula 2.0 01/08/17 23:47 97.7 56 19 112/64 98 Nasal Cannula 01/08/17 20:51 97.7 55 20 99/56 99 Nasal Cannula 15.0 01/08/17 16:07 98.0 57 20 109/56 100 Nasal Cannula 2.0 01/08/17 12:36 97.7 57 20 110/59 100 Nasal Cannula 2.0 Laboratory Tests Test 01/09/17 05:20 White Blood Count 8.4 K/UL (4.8-10.8) Red Blood Count 3.66 M/UL (4.20-5.40) L Hemoglobin 10.7 G/DL (12.0-16.0) L Hematocrit 34.7 % (37.0-47.0) L Mean Corpuscular Volume 95 FL (80-99) Mean Corpuscular Hemoglobin 29.3 PG (27.0-31.0) Mean Corpuscular Hemoglobin Concent 30.9 G/DL (32.0-36.0) L Red Cell Distribution Width 15.0 % (11.6-14.8) H Platelet Count 333 K/UL (150-450) Mean Platelet Volume 6.4 FL (6.5-10.1) L Neutrophils (%) (Auto) 53.9 % (45.0-75.0) Lymphocytes (%) (Auto) 31.2 % (20.0-45.0) Monocytes (%) (Auto) 5.2 % (1.0-10.0) Eosinophils (%) (Auto) 7.9 % (0.0-3.0) H Basophils (%) (Auto) 1.7 % (0.0-2.0) Sodium Level 145 MMOL/L (136-145) Potassium Level 3.8 MMOL/L (3.5-5.1) Chloride Level 109 MMOL/L (98-107) H Carbon Dioxide Level 31 MMOL/L (21-32) Anion Gap 5 mmol/L (5-15) Blood Urea Nitrogen 17 mg/dL (7-18) Creatinine 0.6 MG/DL (0.55-1.30) Estimat Glomerular Filtration Rate > 60 mL/min (>60) Glucose Level 81 MG/DL (74-106) Calcium Level 8.7 MG/DL (8.5-10.1) Height (Feet): 5 Height (Inches): 7.00 Weight (Pounds): 126 General Appearance: WD/WN, no apparent distress, alert Cardiovascular: normal rate Respiratory/Chest: normal breath sounds, no respiratory distress Abdominal Exam: normal bowel sounds, non tender, soft Extremities: normal range of motion, non-tender Shruti Roberson N.P. Jan 09, 2017 11:39
--- NOTE | 2017-01-09 11:39 | GI Progress Note ---
Assessment/Plan Problems: (1) PEG (percutaneous endoscopic gastrostomy) adjustment/replacement/removal ICD Codes: Z43.1 - Encounter for attention to gastrostomy SNOMED: 821538728, 183406996 (2) Chronic pain ICD Codes: G89.29 - Other chronic pain SNOMED: 84143327 (3) Diabetes mellitus ICD Codes: E11.9 - Type 2 diabetes mellitus without complications SNOMED: 63116125 (4) Hypothyroidism ICD Codes: E03.9 - Hypothyroidism, unspecified SNOMED: 11971640 Status: stable Status Narrative Discussed with Dr. Mesa. Assessment/Plan okay for DC per GI standpoint cdiff negative s/p GT removal GT site care daily/prn soft diet, push PO fu labs fu Hep C antibody Subjective Subjective tolerating diet Objective Last 24 Hour Vital Signs Date Time Temp Pulse Resp B/P (MAP) Pulse Ox O2 Delivery O2 Flow Rate FiO2 01/09/17 09:00 58 01/09/17 08:43 97.8 58 20 102/52 100 Nasal Cannula 3.0 01/09/17 07:12 Nasal Cannula 2.0 28 01/09/17 07:12 99 Nasal Cannula 2.0 28 01/09/17 04:00 96.9 60 20 110/54 Nasal Cannula 2.0 01/08/17 23:47 97.7 56 19 112/64 98 Nasal Cannula 01/08/17 20:51 97.7 55 20 99/56 99 Nasal Cannula 15.0 01/08/17 16:07 98.0 57 20 109/56 100 Nasal Cannula 2.0 01/08/17 12:36 97.7 57 20 110/59 100 Nasal Cannula 2.0 Laboratory Tests Test 01/09/17 05:20 White Blood Count 8.4 K/UL (4.8-10.8) Red Blood Count 3.66 M/UL (4.20-5.40) L Hemoglobin 10.7 G/DL (12.0-16.0) L Hematocrit 34.7 % (37.0-47.0) L Mean Corpuscular Volume 95 FL (80-99) Mean Corpuscular Hemoglobin 29.3 PG (27.0-31.0) Mean Corpuscular Hemoglobin Concent 30.9 G/DL (32.0-36.0) L Red Cell Distribution Width 15.0 % (11.6-14.8) H Platelet Count 333 K/UL (150-450) Mean Platelet Volume 6.4 FL (6.5-10.1) L Neutrophils (%) (Auto) 53.9 % (45.0-75.0) Lymphocytes (%) (Auto) 31.2 % (20.0-45.0) Monocytes (%) (Auto) 5.2 % (1.0-10.0) Eosinophils (%) (Auto) 7.9 % (0.0-3.0) H Basophils (%) (Auto) 1.7 % (0.0-2.0) Sodium Level 145 MMOL/L (136-145) Potassium Level 3.8 MMOL/L (3.5-5.1) Chloride Level 109 MMOL/L (98-107) H Carbon Dioxide Level 31 MMOL/L (21-32) Anion Gap 5 mmol/L (5-15) Blood Urea Nitrogen 17 mg/dL (7-18) Creatinine 0.6 MG/DL (0.55-1.30) Estimat Glomerular Filtration Rate > 60 mL/min (>60) Glucose Level 81 MG/DL (74-106) Calcium Level 8.7 MG/DL (8.5-10.1) Height (Feet): 5 Height (Inches): 7.00 Weight (Pounds): 126 General Appearance: WD/WN, no apparent distress, alert Cardiovascular: normal rate Respiratory/Chest: normal breath sounds, no respiratory distress Abdominal Exam: normal bowel sounds, non tender, soft Extremities: normal range of motion, non-tender Shruti Roberson N.P. Jan 09, 2017 11:39
--- NOTE | 2017-01-09 12:34 | Infectious Diseases Prog Note ---
Assessment/Plan Assessment/Plan SOB, SP likely related to malpositioned trach +/- Possible PNA, s/p Rx , SCx: GNR x 2 m/l colonizer -CXR: Interstitial disease nonspecific. CHF, pneumonitis not excluded -spu cx ordered, not collected Leukocytosis- ?reactive vs 2ry to PNA vs combination- resolved -Bcx Neg -u/a WBC 2-4 Diarrhea- neg cdiff COPD and chronic tracheostomy- s/p trach decanulized 12/21 HIV Neg CHF, spinal fusion, DVT, s/p hip surgery, chronic pain, intermediate resident No ABX allergies Full Code Plan: -Continue to monitor off abx -s/p 5d IV Ceftriaxone/azithromycin 12/21 -s/p 1 d IV Vanco/Cefpime 12/18 -s/p 1d Levaquin 12/17 Cxray :P -f/u Hep C ab (per patient request) -Monitor CBC/BMP, temperatures -Aspiration precautions. Subjective Allergies: Coded Allergies: ACETAMINOPHEN (Unverified Allergy, Unknown, 12/17/16) CODEINE (Unverified Allergy, Unknown, 03/04/14) IODINE (Unverified Allergy, Unknown, 12/17/16) Subjective afebrile, no leukocytosis off abx Objective Vital Signs Last 24 Hour Vital Signs Date Time Temp Pulse Resp B/P (MAP) Pulse Ox O2 Delivery O2 Flow Rate FiO2 01/09/17 09:00 58 01/09/17 08:43 97.8 58 20 102/52 100 Nasal Cannula 3.0 01/09/17 07:12 Nasal Cannula 2.0 28 01/09/17 07:12 99 Nasal Cannula 2.0 28 01/09/17 04:00 96.9 60 20 110/54 Nasal Cannula 2.0 01/08/17 23:47 97.7 56 19 112/64 98 Nasal Cannula 01/08/17 20:51 97.7 55 20 99/56 99 Nasal Cannula 15.0 01/08/17 16:07 98.0 57 20 109/56 100 Nasal Cannula 2.0 01/08/17 12:36 97.7 57 20 110/59 100 Nasal Cannula 2.0 Height (Feet): 5 Height (Inches): 7.00 Weight (Pounds): 126 Objective General Appearance: WD/WN, frail Lines, tubes and drains: peripheral, gtube HEENT: normocephalic, atraumatic; trach decanulized Neck: non-tender, normal alignment Respiratory/Chest: chest wall non-tender, lungs clear Cardiovascular/Chest: normal peripheral pulses, normal rate Abdomen: normal bowel sounds, non tender Genitourinary/Rectal: normal genital exam, normal rectal exam Extremities: normal range of motion, non-tender reviewed Laboratory Tests Test 01/09/17 05:20 White Blood Count 8.4 K/UL (4.8-10.8) Red Blood Count 3.66 M/UL (4.20-5.40) L Hemoglobin 10.7 G/DL (12.0-16.0) L Hematocrit 34.7 % (37.0-47.0) L Mean Corpuscular Volume 95 FL (80-99) Mean Corpuscular Hemoglobin 29.3 PG (27.0-31.0) Mean Corpuscular Hemoglobin Concent 30.9 G/DL (32.0-36.0) L Red Cell Distribution Width 15.0 % (11.6-14.8) H Platelet Count 333 K/UL (150-450) Mean Platelet Volume 6.4 FL (6.5-10.1) L Neutrophils (%) (Auto) 53.9 % (45.0-75.0) Lymphocytes (%) (Auto) 31.2 % (20.0-45.0) Monocytes (%) (Auto) 5.2 % (1.0-10.0) Eosinophils (%) (Auto) 7.9 % (0.0-3.0) H Basophils (%) (Auto) 1.7 % (0.0-2.0) Sodium Level 145 MMOL/L (136-145) Potassium Level 3.8 MMOL/L (3.5-5.1) Chloride Level 109 MMOL/L (98-107) H Carbon Dioxide Level 31 MMOL/L (21-32) Anion Gap 5 mmol/L (5-15) Blood Urea Nitrogen 17 mg/dL (7-18) Creatinine 0.6 MG/DL (0.55-1.30) Estimat Glomerular Filtration Rate > 60 mL/min (>60) Glucose Level 81 MG/DL (74-106) Calcium Level 8.7 MG/DL (8.5-10.1) Current Medications Medications (Trade) Dose Ordered Sig/Sandra Route PRN Reason Start Time Stop Time Status Last Admin Dose Admin Al Hydroxide/Mg Hydroxide (Mylanta II) 30 ml Q6H PRN GT dyspepsia 12/22/16 12:00 01/16/17 11:59 12/27/16 21:50 Chlorhexidine Gluconate (Chioma-Hex 2%) 1 applic DAILY@1999 TOPIC 12/23/16 20:00 01/22/17 19:59 01/08/17 20:26 Dextrose (Dextrose 50%) STAT PRN IV Hypoglycemia 12/22/16 12:00 01/19/17 11:59 Digoxin (Lanoxin) 0.25 mg DAILY GT 12/23/16 09:00 01/17/17 09:29 01/08/17 08:29 Docusate Sodium (Colace) 200 mg TIDPRN PRN ORAL Constipation 2nd line agent 01/03/17 20:00 02/02/17 19:59 Gabapentin (Neurontin) 300 mg TID GT 12/22/16 13:00 01/18/17 13:59 01/09/17 09:30 Heparin Sodium (Porcine) (Heparin 5000 units/ml) 5,000 units EVERY 12 HOURS SUBQ 12/22/16 21:00 01/17/17 08:59 01/09/17 09:36 Hydroxyzine HCl (Atarax) 25 mg BID GT 12/22/16 18:00 01/17/17 08:59 01/09/17 09:31 Ketorolac Tromethamine (Toradol 30mg) 15 mg Q6H PRN IV Moderate Pain (Pain Scale 4-6) 01/08/17 20:15 01/13/17 20:14 01/09/17 09:42 Levothyroxine Sodium (Synthroid) 88 mcg ACBREAKFAST GT 12/29/16 06:30 01/28/17 06:29 01/09/17 05:48 Mirtazapine (Remeron) 30 mg BEDTIME GT 01/08/17 21:00 02/07/17 20:59 01/08/17 20:26 Nitroglycerin (Ntg) 0.4 mg Q5MIN X 3 DOSES PRN SL Prn Chest Pain 12/22/16 12:00 01/18/17 17:19 Ondansetron HCl (Zofran) 4 mg Q6H PRN IVP Nausea & Vomiting 12/22/16 12:00 01/16/17 11:59 Polyethylene Glycol (Miralax) 17 gm DAILYPRN PRN ORAL Constipation 12/22/16 12:00 01/19/17 11:59 Sennosides (Senokot) 8.6 mg DAILY ORAL 01/03/17 21:00 02/02/17 20:59 01/09/17 09:30 Lisa Cartagena M.D. Jan 09, 2017 12:34
[2017-01-09 12:49] VITALS: BP 112/59
[2017-01-09 16:00] VITALS: BP 101/53
--- NOTE | 2017-01-09 18:34 | Pulmonology Progress Note ---
Assessment/Plan Problems: (1) Purulent bronchitis (2) Acute and chronic respiratory failure ([id number]) (3) Tracheostomy malfunction (4) COPD (chronic obstructive pulmonary disease) (5) Interstitial lung disease (6) Diabetes mellitus (7) Hypothyroidism Assessment/Plan symptomatic treatment tolerating off trach, respiratory treatment check sputum psych evaluation all notes reviewed awaiting discharge Subjective ROS Limited/Unobtainable: No Constitutional: Reports: no symptoms HEENT: Repors: no symptoms Allergies: Coded Allergies: ACETAMINOPHEN (Unverified Allergy, Unknown, 12/17/16) CODEINE (Unverified Allergy, Unknown, 03/04/14) IODINE (Unverified Allergy, Unknown, 12/17/16) Objective Last 24 Hour Vital Signs Date Time Temp Pulse Resp B/P (MAP) Pulse Ox O2 Delivery O2 Flow Rate FiO2 01/09/17 16:00 96.6 60 19 101/53 95 Room Air 01/09/17 12:49 97.7 78 18 112/59 96 Nasal Cannula 3.0 01/09/17 09:00 58 01/09/17 08:43 97.8 58 20 102/52 100 Nasal Cannula 3.0 01/09/17 07:12 Nasal Cannula 2.0 28 01/09/17 07:12 99 Nasal Cannula 2.0 28 01/09/17 04:00 96.9 60 20 110/54 Nasal Cannula 2.0 01/08/17 23:47 97.7 56 19 112/64 98 Nasal Cannula 01/08/17 20:51 97.7 55 20 99/56 99 Nasal Cannula 15.0 Intake and Output 01/09/17 01/10/17 19:00 07:00 Intake Total 360 ml Balance 360 ml Intake Oral 360 ml # Voids 2 Objective General Appearance: no acute distress, cachetic HEENT: normocephalic, atraumatic Respiratory/Chest: chest wall non-tender, lungs clear, normal breath sounds Cardiovascular: normal peripheral pulses, normal rate Abdomen: normal bowel sounds, soft, non tender Genitourinary: normal external genitalia Extremities: no cyanosis Skin: no rash Laboratory Tests 01/09/17 05:20: White Blood Count 8.4, Red Blood Count 3.66L, Hemoglobin 10.7L, Hematocrit 34.7L , Mean Corpuscular Volume 95, Mean Corpuscular Hemoglobin 29.3, Mean Corpuscular Hemoglobin Concent 30.9L, Red Cell Distribution Width 15.0H, Platelet Count 333, Mean Platelet Volume 6.4L, Neutrophils (%) (Auto) 53.9, Lymphocytes (%) (Auto) 31.2, Monocytes (%) (Auto) 5.2, Eosinophils (%) (Auto) 7.9H, Basophils (%) (Auto) 1.7, Sodium Level 145, Potassium Level 3.8, Chloride Level 109H, Carbon Dioxide Level 31, Anion Gap 5, Blood Urea Nitrogen 17, Creatinine 0.6, Estimat Glomerular Filtration Rate > 60, Glucose Level 81, Calcium Level 8.7 Current Medications Medications (Trade) Dose Ordered Sig/Sandra Route PRN Reason Start Time Stop Time Status Last Admin Dose Admin Al Hydroxide/Mg Hydroxide (Mylanta II) 30 ml Q6H PRN GT dyspepsia 12/22/16 12:00 01/16/17 11:59 12/27/16 21:50 Chlorhexidine Gluconate (Chioma-Hex 2%) 1 applic DAILY@1999 TOPIC 12/23/16 20:00 01/22/17 19:59 01/08/17 20:26 Dextrose (Dextrose 50%) STAT PRN IV Hypoglycemia 12/22/16 12:00 01/19/17 11:59 Digoxin (Lanoxin) 0.25 mg DAILY GT 12/23/16 09:00 01/17/17 09:29 01/08/17 08:29 Docusate Sodium (Colace) 200 mg TIDPRN PRN ORAL Constipation 2nd line agent 01/03/17 20:00 02/02/17 19:59 Gabapentin (Neurontin) 300 mg TID GT 12/22/16 13:00 01/18/17 13:59 01/09/17 17:24 Heparin Sodium (Porcine) (Heparin 5000 units/ml) 5,000 units EVERY 12 HOURS SUBQ 12/22/16 21:00 01/17/17 08:59 01/09/17 09:36 Hydroxyzine HCl (Atarax) 25 mg BID GT 12/22/16 18:00 01/17/17 08:59 01/09/17 17:25 Ketorolac Tromethamine (Toradol 30mg) 15 mg Q6H PRN IV Moderate Pain (Pain Scale 4-6) 01/08/17 20:15 01/13/17 20:14 01/09/17 17:26 Levothyroxine Sodium (Synthroid) 88 mcg ACBREAKFAST GT 12/29/16 06:30 01/28/17 06:29 01/09/17 05:48 Mirtazapine (Remeron) 30 mg BEDTIME GT 01/08/17 21:00 02/07/17 20:59 01/08/17 20:26 Nitroglycerin (Ntg) 0.4 mg Q5MIN X 3 DOSES PRN SL Prn Chest Pain 12/22/16 12:00 01/18/17 17:19 Ondansetron HCl (Zofran) 4 mg Q6H PRN IVP Nausea & Vomiting 12/22/16 12:00 01/16/17 11:59 Polyethylene Glycol (Miralax) 17 gm DAILYPRN PRN ORAL Constipation 12/22/16 12:00 01/19/17 11:59 Sennosides (Senokot) 8.6 mg DAILY ORAL 01/03/17 21:00 02/02/17 20:59 01/09/17 09:30 DEDRICK SOLANO Jan 09, 2017 18:34
[2017-01-09 19:55] VITALS: BP 124/61
[2017-01-09] MEDS: Dyna-Hex 2% Top Sol 2oz TOPIC SCH (20:17)
--- NOTE | 2017-01-09 22:51 | General Progress Note ---
Assessment/Plan Status: stable, progressing Assessment/Plan mdd cont current meds provided ro/st Subjective Constitutional: Reports: malaise, weakness Neurologic/Psychiatric: Reports: anxiety, depressed, emotional problems Allergies: Coded Allergies: ACETAMINOPHEN (Unverified Allergy, Unknown, 12/17/16) CODEINE (Unverified Allergy, Unknown, 03/04/14) IODINE (Unverified Allergy, Unknown, 12/17/16) Subjective pt is calm c/o long hospitalization Objective Last 24 Hour Vital Signs Date Time Temp Pulse Resp B/P (MAP) Pulse Ox O2 Delivery O2 Flow Rate FiO2 01/09/17 19:55 97.3 60 20 124/61 91 Room Air 01/09/17 16:00 96.6 60 19 101/53 95 Room Air 01/09/17 12:49 97.7 78 18 112/59 96 Nasal Cannula 3.0 01/09/17 09:00 58 01/09/17 08:43 97.8 58 20 102/52 100 Nasal Cannula 3.0 01/09/17 07:12 Nasal Cannula 2.0 28 01/09/17 07:12 99 Nasal Cannula 2.0 28 01/09/17 04:00 96.9 60 20 110/54 Nasal Cannula 2.0 01/08/17 23:47 97.7 56 19 112/64 98 Nasal Cannula Intake and Output 01/09/17 01/10/17 19:00 07:00 Intake Total 710 ml Balance 710 ml Intake Oral 710 ml # Voids 4 Laboratory Tests 01/09/17 05:20: White Blood Count 8.4, Red Blood Count 3.66L, Hemoglobin 10.7L, Hematocrit 34.7L , Mean Corpuscular Volume 95, Mean Corpuscular Hemoglobin 29.3, Mean Corpuscular Hemoglobin Concent 30.9L, Red Cell Distribution Width 15.0H, Platelet Count 333, Mean Platelet Volume 6.4L, Neutrophils (%) (Auto) 53.9, Lymphocytes (%) (Auto) 31.2, Monocytes (%) (Auto) 5.2, Eosinophils (%) (Auto) 7.9H, Basophils (%) (Auto) 1.7, Sodium Level 145, Potassium Level 3.8, Chloride Level 109H, Carbon Dioxide Level 31, Anion Gap 5, Blood Urea Nitrogen 17, Creatinine 0.6, Estimat Glomerular Filtration Rate > 60, Glucose Level 81, Calcium Level 8.7 Height (Feet): 5 Height (Inches): 7.00 Weight (Pounds): 126 General Appearance: no apparent distress, alert, overweight Neurologic: alert, oriented x 3, responsive, depressed affect Kallie Fernandez M.D. Jan 09, 2017 22:51
[2017-01-10] VITALS: BP 119/65
[2017-01-10 04:00] VITALS: BP 126/72
--- NOTE | 2017-01-10 05:23 | General Progress Note ---
Assessment/Plan Problem List: (1) Diabetes mellitus ICD Codes: E11.9 - Type 2 diabetes mellitus without complications SNOMED: 87940109 (2) Hypothyroidism ICD Codes: E03.9 - Hypothyroidism, unspecified SNOMED: 06170687 (3) COPD (chronic obstructive pulmonary disease) ICD Codes: J44.9 - Chronic obstructive pulmonary disease, unspecified SNOMED: 14548221 (4) CHF (congestive heart failure) ICD Codes: I50.9 - Heart failure, unspecified SNOMED: 26939806 Assessment/Plan continue Levothyroxine 88 mcg DC BG monitoring and SSI Subjective Allergies: Coded Allergies: ACETAMINOPHEN (Unverified Allergy, Unknown, 12/17/16) CODEINE (Unverified Allergy, Unknown, 03/04/14) IODINE (Unverified Allergy, Unknown, 12/17/16) All Systems: reviewed and negative except above Subjective events noted Objective Last 24 Hour Vital Signs Date Time Temp Pulse Resp B/P (MAP) Pulse Ox O2 Delivery O2 Flow Rate FiO2 01/10/17 04:00 97.9 70 20 126/72 91 Room Air 01/10/17 00:00 97.7 69 18 119/65 90 Room Air 01/09/17 21:30 93 Room Air 01/09/17 21:30 Room Air 01/09/17 19:55 97.3 60 20 124/61 91 Room Air 01/09/17 16:00 96.6 60 19 101/53 95 Room Air 01/09/17 12:49 97.7 78 18 112/59 96 Nasal Cannula 3.0 01/09/17 09:00 58 01/09/17 08:43 97.8 58 20 102/52 100 Nasal Cannula 3.0 01/09/17 07:12 Nasal Cannula 2.0 28 01/09/17 07:12 99 Nasal Cannula 2.0 28 Height (Feet): 5 Height (Inches): 7.00 Weight (Pounds): 126 General Appearance: no apparent distress Neck: non-tender Cardiovascular: normal rate Respiratory/Chest: decreased breath sounds Abdomen: normal bowel sounds Edema: no edema noted Arm (L), no edema noted Arm (R), no edema noted Leg (L), no edema noted Leg (R), no edema noted Pedal (L), no edema noted Pedal (R), no edema noted Generalized Objective Current Medications Medications (Trade) Dose Ordered Sig/Sandra Route PRN Reason Start Time Stop Time Status Last Admin Dose Admin Al Hydroxide/Mg Hydroxide (Mylanta II) 30 ml Q6H PRN GT dyspepsia 12/22/16 12:00 01/16/17 11:59 12/27/16 21:50 Chlorhexidine Gluconate (Chioma-Hex 2%) 1 applic DAILY@2000 TOPIC 12/23/16 20:00 01/22/17 19:59 01/09/17 20:17 Dextrose (Dextrose 50%) STAT PRN IV Hypoglycemia 12/22/16 12:00 01/19/17 11:59 Digoxin (Lanoxin) 0.25 mg DAILY GT 12/23/16 09:00 01/17/17 09:29 01/08/17 08:29 Docusate Sodium (Colace) 200 mg TIDPRN PRN ORAL Constipation 2nd line agent 01/03/17 20:00 02/02/17 19:59 Gabapentin (Neurontin) 300 mg TID GT 12/22/16 13:00 01/18/17 13:59 01/09/17 17:24 Heparin Sodium (Porcine) (Heparin 5000 units/ml) 5,000 units EVERY 12 HOURS SUBQ 12/22/16 21:00 01/17/17 08:59 01/09/17 20:20 Hydroxyzine HCl (Atarax) 25 mg BID GT 12/22/16 18:00 01/17/17 08:59 01/09/17 17:25 Ketorolac Tromethamine (Toradol 30mg) 15 mg Q6H PRN IV Moderate Pain (Pain Scale 4-6) 01/08/17 20:15 01/13/17 20:14 01/09/17 23:26 Levothyroxine Sodium (Synthroid) 88 mcg ACBREAKFAST GT 12/29/16 06:30 01/28/17 06:29 01/09/17 05:48 Mirtazapine (Remeron) 30 mg BEDTIME GT 01/08/17 21:00 02/07/17 20:59 01/09/17 20:17 Nitroglycerin (Ntg) 0.4 mg Q5MIN X 3 DOSES PRN SL Prn Chest Pain 12/22/16 12:00 01/18/17 17:19 Ondansetron HCl (Zofran) 4 mg Q6H PRN IVP Nausea & Vomiting 12/22/16 12:00 01/16/17 11:59 Polyethylene Glycol (Miralax) 17 gm DAILYPRN PRN ORAL Constipation 12/22/16 12:00 01/19/17 11:59 Sennosides (Senokot) 8.6 mg DAILY ORAL 01/03/17 21:00 02/02/17 20:59 01/09/17 09:30 ANGEL RICHARDSON Jan 10, 2017 05:23
--- NOTE | 2017-01-10 05:23 | General Progress Note ---
Assessment/Plan Problem List: (1) Diabetes mellitus ICD Codes: E11.9 - Type 2 diabetes mellitus without complications SNOMED: 50988681 (2) Hypothyroidism ICD Codes: E03.9 - Hypothyroidism, unspecified SNOMED: 87683987 (3) COPD (chronic obstructive pulmonary disease) ICD Codes: J44.9 - Chronic obstructive pulmonary disease, unspecified SNOMED: 52682487 (4) CHF (congestive heart failure) ICD Codes: I50.9 - Heart failure, unspecified SNOMED: 46501194 Assessment/Plan continue Levothyroxine 88 mcg DC BG monitoring and SSI Subjective Allergies: Coded Allergies: ACETAMINOPHEN (Unverified Allergy, Unknown, 12/17/16) CODEINE (Unverified Allergy, Unknown, 03/04/14) IODINE (Unverified Allergy, Unknown, 12/17/16) All Systems: reviewed and negative except above Subjective events noted Objective Last 24 Hour Vital Signs Date Time Temp Pulse Resp B/P (MAP) Pulse Ox O2 Delivery O2 Flow Rate FiO2 01/10/17 04:00 97.9 70 20 126/72 91 Room Air 01/10/17 00:00 97.7 69 18 119/65 90 Room Air 01/09/17 21:30 93 Room Air 01/09/17 21:30 Room Air 01/09/17 19:55 97.3 60 20 124/61 91 Room Air 01/09/17 16:00 96.6 60 19 101/53 95 Room Air 01/09/17 12:49 97.7 78 18 112/59 96 Nasal Cannula 3.0 01/09/17 09:00 58 01/09/17 08:43 97.8 58 20 102/52 100 Nasal Cannula 3.0 01/09/17 07:12 Nasal Cannula 2.0 28 01/09/17 07:12 99 Nasal Cannula 2.0 28 Height (Feet): 5 Height (Inches): 7.00 Weight (Pounds): 126 General Appearance: no apparent distress Neck: non-tender Cardiovascular: normal rate Respiratory/Chest: decreased breath sounds Abdomen: normal bowel sounds Edema: no edema noted Arm (L), no edema noted Arm (R), no edema noted Leg (L), no edema noted Leg (R), no edema noted Pedal (L), no edema noted Pedal (R), no edema noted Generalized Objective Current Medications Medications (Trade) Dose Ordered Sig/Sandra Route PRN Reason Start Time Stop Time Status Last Admin Dose Admin Al Hydroxide/Mg Hydroxide (Mylanta II) 30 ml Q6H PRN GT dyspepsia 12/22/16 12:00 01/16/17 11:59 12/27/16 21:50 Chlorhexidine Gluconate (Chioma-Hex 2%) 1 applic DAILY@2000 TOPIC 12/23/16 20:00 01/22/17 19:59 01/09/17 20:17 Dextrose (Dextrose 50%) STAT PRN IV Hypoglycemia 12/22/16 12:00 01/19/17 11:59 Digoxin (Lanoxin) 0.25 mg DAILY GT 12/23/16 09:00 01/17/17 09:29 01/08/17 08:29 Docusate Sodium (Colace) 200 mg TIDPRN PRN ORAL Constipation 2nd line agent 01/03/17 20:00 02/02/17 19:59 Gabapentin (Neurontin) 300 mg TID GT 12/22/16 13:00 01/18/17 13:59 01/09/17 17:24 Heparin Sodium (Porcine) (Heparin 5000 units/ml) 5,000 units EVERY 12 HOURS SUBQ 12/22/16 21:00 01/17/17 08:59 01/09/17 20:20 Hydroxyzine HCl (Atarax) 25 mg BID GT 12/22/16 18:00 01/17/17 08:59 01/09/17 17:25 Ketorolac Tromethamine (Toradol 30mg) 15 mg Q6H PRN IV Moderate Pain (Pain Scale 4-6) 01/08/17 20:15 01/13/17 20:14 01/09/17 23:26 Levothyroxine Sodium (Synthroid) 88 mcg ACBREAKFAST GT 12/29/16 06:30 01/28/17 06:29 01/09/17 05:48 Mirtazapine (Remeron) 30 mg BEDTIME GT 01/08/17 21:00 02/07/17 20:59 01/09/17 20:17 Nitroglycerin (Ntg) 0.4 mg Q5MIN X 3 DOSES PRN SL Prn Chest Pain 12/22/16 12:00 01/18/17 17:19 Ondansetron HCl (Zofran) 4 mg Q6H PRN IVP Nausea & Vomiting 12/22/16 12:00 01/16/17 11:59 Polyethylene Glycol (Miralax) 17 gm DAILYPRN PRN ORAL Constipation 12/22/16 12:00 01/19/17 11:59 Sennosides (Senokot) 8.6 mg DAILY ORAL 01/03/17 21:00 02/02/17 20:59 01/09/17 09:30 ANGEL RICHARDSON Jan 10, 2017 05:23
--- NOTE | 2017-01-10 05:23 | General Progress Note ---
Assessment/Plan Problem List: (1) Diabetes mellitus ICD Codes: E11.9 - Type 2 diabetes mellitus without complications SNOMED: 58289779 (2) Hypothyroidism ICD Codes: E03.9 - Hypothyroidism, unspecified SNOMED: 46869675 (3) COPD (chronic obstructive pulmonary disease) ICD Codes: J44.9 - Chronic obstructive pulmonary disease, unspecified SNOMED: 70742797 (4) CHF (congestive heart failure) ICD Codes: I50.9 - Heart failure, unspecified SNOMED: 23836267 Assessment/Plan continue Levothyroxine 88 mcg DC BG monitoring and SSI Subjective Allergies: Coded Allergies: ACETAMINOPHEN (Unverified Allergy, Unknown, 12/17/16) CODEINE (Unverified Allergy, Unknown, 03/04/14) IODINE (Unverified Allergy, Unknown, 12/17/16) All Systems: reviewed and negative except above Subjective events noted Objective Last 24 Hour Vital Signs Date Time Temp Pulse Resp B/P (MAP) Pulse Ox O2 Delivery O2 Flow Rate FiO2 01/10/17 04:00 97.9 70 20 126/72 91 Room Air 01/10/17 00:00 97.7 69 18 119/65 90 Room Air 01/09/17 21:30 93 Room Air 01/09/17 21:30 Room Air 01/09/17 19:55 97.3 60 20 124/61 91 Room Air 01/09/17 16:00 96.6 60 19 101/53 95 Room Air 01/09/17 12:49 97.7 78 18 112/59 96 Nasal Cannula 3.0 01/09/17 09:00 58 01/09/17 08:43 97.8 58 20 102/52 100 Nasal Cannula 3.0 01/09/17 07:12 Nasal Cannula 2.0 28 01/09/17 07:12 99 Nasal Cannula 2.0 28 Height (Feet): 5 Height (Inches): 7.00 Weight (Pounds): 126 General Appearance: no apparent distress Neck: non-tender Cardiovascular: normal rate Respiratory/Chest: decreased breath sounds Abdomen: normal bowel sounds Edema: no edema noted Arm (L), no edema noted Arm (R), no edema noted Leg (L), no edema noted Leg (R), no edema noted Pedal (L), no edema noted Pedal (R), no edema noted Generalized Objective Current Medications Medications (Trade) Dose Ordered Sig/Sandra Route PRN Reason Start Time Stop Time Status Last Admin Dose Admin Al Hydroxide/Mg Hydroxide (Mylanta II) 30 ml Q6H PRN GT dyspepsia 12/22/16 12:00 01/16/17 11:59 12/27/16 21:50 Chlorhexidine Gluconate (Chioma-Hex 2%) 1 applic DAILY@2000 TOPIC 12/23/16 20:00 01/22/17 19:59 01/09/17 20:17 Dextrose (Dextrose 50%) STAT PRN IV Hypoglycemia 12/22/16 12:00 01/19/17 11:59 Digoxin (Lanoxin) 0.25 mg DAILY GT 12/23/16 09:00 01/17/17 09:29 01/08/17 08:29 Docusate Sodium (Colace) 200 mg TIDPRN PRN ORAL Constipation 2nd line agent 01/03/17 20:00 02/02/17 19:59 Gabapentin (Neurontin) 300 mg TID GT 12/22/16 13:00 01/18/17 13:59 01/09/17 17:24 Heparin Sodium (Porcine) (Heparin 5000 units/ml) 5,000 units EVERY 12 HOURS SUBQ 12/22/16 21:00 01/17/17 08:59 01/09/17 20:20 Hydroxyzine HCl (Atarax) 25 mg BID GT 12/22/16 18:00 01/17/17 08:59 01/09/17 17:25 Ketorolac Tromethamine (Toradol 30mg) 15 mg Q6H PRN IV Moderate Pain (Pain Scale 4-6) 01/08/17 20:15 01/13/17 20:14 01/09/17 23:26 Levothyroxine Sodium (Synthroid) 88 mcg ACBREAKFAST GT 12/29/16 06:30 01/28/17 06:29 01/09/17 05:48 Mirtazapine (Remeron) 30 mg BEDTIME GT 01/08/17 21:00 02/07/17 20:59 01/09/17 20:17 Nitroglycerin (Ntg) 0.4 mg Q5MIN X 3 DOSES PRN SL Prn Chest Pain 12/22/16 12:00 01/18/17 17:19 Ondansetron HCl (Zofran) 4 mg Q6H PRN IVP Nausea & Vomiting 12/22/16 12:00 01/16/17 11:59 Polyethylene Glycol (Miralax) 17 gm DAILYPRN PRN ORAL Constipation 12/22/16 12:00 01/19/17 11:59 Sennosides (Senokot) 8.6 mg DAILY ORAL 01/03/17 21:00 02/02/17 20:59 01/09/17 09:30 ANGEL RICHARDSON Jan 10, 2017 05:23
[2017-01-10] MEDS: Ketorolac 30mg Inj IV PRN ×4 (05:40→23:59)
[2017-01-10 06:50] LABS: BASOPHILS % (AUTO) 1.4 % (0.0-2.0); EOSINOPHILS % (AUTO) 7.2 % (0.0-3.0); HEMATOCRIT 37.3 % (37.0-47.0); HEMOGLOBIN 11.4 G/DL (12.0-16.0); LYMPHOCYTES % (AUTO) 34.2 % (20.0-45.0); MEAN CORPUSCULAR VOLUME 94 FL (80-99); MONOCYTES % (AUTO) 4.5 % (1.0-10.0); NEUTROPHILS % (AUTO) 52.7 % (45.0-75.0); PLATELET COUNT 377 K/UL (150-450); RED BLOOD COUNT 3.96 M/UL (4.20-5.40); RED CELL DISTRIBUTION WIDTH 14.4 % (11.6-14.8); WHITE BLOOD COUNT 9.6 K/UL (4.8-10.8)
[2017-01-10 07:08] LABS: ANION GAP 5 mmol/L (5-15); BLOOD UREA NITROGEN 17 mg/dL (7-18); CALCIUM 9.1 MG/DL (8.5-10.1); CARBON DIOXIDE 31 MMOL/L (21-32); CHLORIDE 108 MMOL/L (98-107); CREATININE 0.6 MG/DL (0.55-1.30); POTASSIUM 3.7 MMOL/L (3.5-5.1); SODIUM 144 MMOL/L (136-145)
[2017-01-10 08:03] VITALS: BP 118/73
[2017-01-10] MEDS: HydrOXYzine 25mg tab GT SCH ×2 (09:28→17:57)
[2017-01-10] MEDS: Gabapentin 300 MG/6 ML Soln GT SCH ×3 (09:28→17:56)
[2017-01-10] MEDS: Sennosides 8.6mg ORAL SCH (09:28)
[2017-01-10] MEDS: Heparin 5000 units/ml inj SUBQ SCH ×2 (09:30→20:57)
--- NOTE | 2017-01-10 10:40 | GI Progress Note ---
Assessment/Plan Problems: (1) PEG (percutaneous endoscopic gastrostomy) adjustment/replacement/removal ICD Codes: Z43.1 - Encounter for attention to gastrostomy SNOMED: 738521158, 298575866 (2) Chronic pain ICD Codes: G89.29 - Other chronic pain SNOMED: 90298915 (3) Diabetes mellitus ICD Codes: E11.9 - Type 2 diabetes mellitus without complications SNOMED: 89647551 (4) Hypothyroidism ICD Codes: E03.9 - Hypothyroidism, unspecified SNOMED: 49976301 Status: stable Status Narrative Discussed with Dr. Mesa. Assessment/Plan okay for DC per GI standpoint cdiff negative s/p GT removal GT site care daily/prn soft diet, push PO fu labs fu Hep C antibody Subjective Subjective tolerating diet Objective Last 24 Hour Vital Signs Date Time Temp Pulse Resp B/P (MAP) Pulse Ox O2 Delivery O2 Flow Rate FiO2 01/10/17 09:28 77 01/10/17 08:03 98.1 77 19 118/73 96 Room Air 01/10/17 04:00 97.9 70 20 126/72 91 Room Air 01/10/17 00:00 97.7 69 18 119/65 90 Room Air 01/09/17 21:30 93 Room Air 01/09/17 21:30 Room Air 01/09/17 19:55 97.3 60 20 124/61 91 Room Air 01/09/17 16:00 96.6 60 19 101/53 95 Room Air 01/09/17 12:49 97.7 78 18 112/59 96 Nasal Cannula 3.0 Laboratory Tests Test 01/10/17 05:00 White Blood Count 9.6 K/UL (4.8-10.8) Red Blood Count 3.96 M/UL (4.20-5.40) L Hemoglobin 11.4 G/DL (12.0-16.0) L Hematocrit 37.3 % (37.0-47.0) Mean Corpuscular Volume 94 FL (80-99) Mean Corpuscular Hemoglobin 28.8 PG (27.0-31.0) Mean Corpuscular Hemoglobin Concent 30.6 G/DL (32.0-36.0) L Red Cell Distribution Width 14.4 % (11.6-14.8) Platelet Count 377 K/UL (150-450) Mean Platelet Volume 6.3 FL (6.5-10.1) L Neutrophils (%) (Auto) 52.7 % (45.0-75.0) Lymphocytes (%) (Auto) 34.2 % (20.0-45.0) Monocytes (%) (Auto) 4.5 % (1.0-10.0) Eosinophils (%) (Auto) 7.2 % (0.0-3.0) H Basophils (%) (Auto) 1.4 % (0.0-2.0) Sodium Level 144 MMOL/L (136-145) Potassium Level 3.7 MMOL/L (3.5-5.1) Chloride Level 108 MMOL/L (98-107) H Carbon Dioxide Level 31 MMOL/L (21-32) Anion Gap 5 mmol/L (5-15) Blood Urea Nitrogen 17 mg/dL (7-18) Creatinine 0.6 MG/DL (0.55-1.30) Estimat Glomerular Filtration Rate > 60 mL/min (>60) Glucose Level 75 MG/DL (74-106) Calcium Level 9.1 MG/DL (8.5-10.1) Height (Feet): 5 Height (Inches): 7.00 Weight (Pounds): 126 General Appearance: WD/WN, no apparent distress, alert Cardiovascular: normal rate Respiratory/Chest: normal breath sounds, no respiratory distress Abdominal Exam: normal bowel sounds, non tender, soft, GT site - healed Shruti Roberson N.P. Jan 10, 2017 10:40
--- NOTE | 2017-01-10 10:40 | GI Progress Note ---
Assessment/Plan Problems: (1) PEG (percutaneous endoscopic gastrostomy) adjustment/replacement/removal ICD Codes: Z43.1 - Encounter for attention to gastrostomy SNOMED: 568501118, 180255612 (2) Chronic pain ICD Codes: G89.29 - Other chronic pain SNOMED: 31668900 (3) Diabetes mellitus ICD Codes: E11.9 - Type 2 diabetes mellitus without complications SNOMED: 45848962 (4) Hypothyroidism ICD Codes: E03.9 - Hypothyroidism, unspecified SNOMED: 60763909 Status: stable Status Narrative Discussed with Dr. Mesa. Assessment/Plan okay for DC per GI standpoint cdiff negative s/p GT removal GT site care daily/prn soft diet, push PO fu labs fu Hep C antibody Subjective Subjective tolerating diet Objective Last 24 Hour Vital Signs Date Time Temp Pulse Resp B/P (MAP) Pulse Ox O2 Delivery O2 Flow Rate FiO2 01/10/17 09:28 77 01/10/17 08:03 98.1 77 19 118/73 96 Room Air 01/10/17 04:00 97.9 70 20 126/72 91 Room Air 01/10/17 00:00 97.7 69 18 119/65 90 Room Air 01/09/17 21:30 93 Room Air 01/09/17 21:30 Room Air 01/09/17 19:55 97.3 60 20 124/61 91 Room Air 01/09/17 16:00 96.6 60 19 101/53 95 Room Air 01/09/17 12:49 97.7 78 18 112/59 96 Nasal Cannula 3.0 Laboratory Tests Test 01/10/17 05:00 White Blood Count 9.6 K/UL (4.8-10.8) Red Blood Count 3.96 M/UL (4.20-5.40) L Hemoglobin 11.4 G/DL (12.0-16.0) L Hematocrit 37.3 % (37.0-47.0) Mean Corpuscular Volume 94 FL (80-99) Mean Corpuscular Hemoglobin 28.8 PG (27.0-31.0) Mean Corpuscular Hemoglobin Concent 30.6 G/DL (32.0-36.0) L Red Cell Distribution Width 14.4 % (11.6-14.8) Platelet Count 377 K/UL (150-450) Mean Platelet Volume 6.3 FL (6.5-10.1) L Neutrophils (%) (Auto) 52.7 % (45.0-75.0) Lymphocytes (%) (Auto) 34.2 % (20.0-45.0) Monocytes (%) (Auto) 4.5 % (1.0-10.0) Eosinophils (%) (Auto) 7.2 % (0.0-3.0) H Basophils (%) (Auto) 1.4 % (0.0-2.0) Sodium Level 144 MMOL/L (136-145) Potassium Level 3.7 MMOL/L (3.5-5.1) Chloride Level 108 MMOL/L (98-107) H Carbon Dioxide Level 31 MMOL/L (21-32) Anion Gap 5 mmol/L (5-15) Blood Urea Nitrogen 17 mg/dL (7-18) Creatinine 0.6 MG/DL (0.55-1.30) Estimat Glomerular Filtration Rate > 60 mL/min (>60) Glucose Level 75 MG/DL (74-106) Calcium Level 9.1 MG/DL (8.5-10.1) Height (Feet): 5 Height (Inches): 7.00 Weight (Pounds): 126 General Appearance: WD/WN, no apparent distress, alert Cardiovascular: normal rate Respiratory/Chest: normal breath sounds, no respiratory distress Abdominal Exam: normal bowel sounds, non tender, soft, GT site - healed Shruti Roberson N.P. Jan 10, 2017 10:40
--- NOTE | 2017-01-10 10:40 | GI Progress Note ---
Assessment/Plan Problems: (1) PEG (percutaneous endoscopic gastrostomy) adjustment/replacement/removal ICD Codes: Z43.1 - Encounter for attention to gastrostomy SNOMED: 723149527, 291998367 (2) Chronic pain ICD Codes: G89.29 - Other chronic pain SNOMED: 46597544 (3) Diabetes mellitus ICD Codes: E11.9 - Type 2 diabetes mellitus without complications SNOMED: 42884626 (4) Hypothyroidism ICD Codes: E03.9 - Hypothyroidism, unspecified SNOMED: 11344011 Status: stable Status Narrative Discussed with Dr. Mesa. Assessment/Plan okay for DC per GI standpoint cdiff negative s/p GT removal GT site care daily/prn soft diet, push PO fu labs fu Hep C antibody Subjective Subjective tolerating diet Objective Last 24 Hour Vital Signs Date Time Temp Pulse Resp B/P (MAP) Pulse Ox O2 Delivery O2 Flow Rate FiO2 01/10/17 09:28 77 01/10/17 08:03 98.1 77 19 118/73 96 Room Air 01/10/17 04:00 97.9 70 20 126/72 91 Room Air 01/10/17 00:00 97.7 69 18 119/65 90 Room Air 01/09/17 21:30 93 Room Air 01/09/17 21:30 Room Air 01/09/17 19:55 97.3 60 20 124/61 91 Room Air 01/09/17 16:00 96.6 60 19 101/53 95 Room Air 01/09/17 12:49 97.7 78 18 112/59 96 Nasal Cannula 3.0 Laboratory Tests Test 01/10/17 05:00 White Blood Count 9.6 K/UL (4.8-10.8) Red Blood Count 3.96 M/UL (4.20-5.40) L Hemoglobin 11.4 G/DL (12.0-16.0) L Hematocrit 37.3 % (37.0-47.0) Mean Corpuscular Volume 94 FL (80-99) Mean Corpuscular Hemoglobin 28.8 PG (27.0-31.0) Mean Corpuscular Hemoglobin Concent 30.6 G/DL (32.0-36.0) L Red Cell Distribution Width 14.4 % (11.6-14.8) Platelet Count 377 K/UL (150-450) Mean Platelet Volume 6.3 FL (6.5-10.1) L Neutrophils (%) (Auto) 52.7 % (45.0-75.0) Lymphocytes (%) (Auto) 34.2 % (20.0-45.0) Monocytes (%) (Auto) 4.5 % (1.0-10.0) Eosinophils (%) (Auto) 7.2 % (0.0-3.0) H Basophils (%) (Auto) 1.4 % (0.0-2.0) Sodium Level 144 MMOL/L (136-145) Potassium Level 3.7 MMOL/L (3.5-5.1) Chloride Level 108 MMOL/L (98-107) H Carbon Dioxide Level 31 MMOL/L (21-32) Anion Gap 5 mmol/L (5-15) Blood Urea Nitrogen 17 mg/dL (7-18) Creatinine 0.6 MG/DL (0.55-1.30) Estimat Glomerular Filtration Rate > 60 mL/min (>60) Glucose Level 75 MG/DL (74-106) Calcium Level 9.1 MG/DL (8.5-10.1) Height (Feet): 5 Height (Inches): 7.00 Weight (Pounds): 126 General Appearance: WD/WN, no apparent distress, alert Cardiovascular: normal rate Respiratory/Chest: normal breath sounds, no respiratory distress Abdominal Exam: normal bowel sounds, non tender, soft, GT site - healed Shruti Roberson N.P. Jan 10, 2017 10:40
[2017-01-10 13:00] VITALS: BP 111/59
[2017-01-10 16:00] VITALS: BP 137/76
--- NOTE | 2017-01-10 17:49 | Pulmonology Progress Note ---
Assessment/Plan Problems: (1) Purulent bronchitis (2) Acute and chronic respiratory failure ([id number]) (3) Tracheostomy malfunction (4) COPD (chronic obstructive pulmonary disease) (5) Interstitial lung disease (6) Diabetes mellitus (7) Hypothyroidism Assessment/Plan symptomatic treatment tolerating off trach, respiratory treatment check sputum psych evaluation all notes reviewed awaiting discharge Subjective ROS Limited/Unobtainable: No Constitutional: Reports: no symptoms Respiratory: Reports: no symptoms Allergies: Coded Allergies: ACETAMINOPHEN (Unverified Allergy, Unknown, 12/17/16) CODEINE (Unverified Allergy, Unknown, 03/04/14) IODINE (Unverified Allergy, Unknown, 12/17/16) Objective Last 24 Hour Vital Signs Date Time Temp Pulse Resp B/P (MAP) Pulse Ox O2 Delivery O2 Flow Rate FiO2 01/10/17 16:00 97.5 72 18 137/76 91 Room Air 01/10/17 13:00 97.7 82 19 111/59 97 Room Air 01/10/17 09:28 77 01/10/17 08:03 98.1 77 19 118/73 96 Room Air 01/10/17 04:00 97.9 70 20 126/72 91 Room Air 01/10/17 00:00 97.7 69 18 119/65 90 Room Air 01/09/17 21:30 93 Room Air 01/09/17 21:30 Room Air 01/09/17 19:55 97.3 60 20 124/61 91 Room Air Intake and Output 01/10/17 01/11/17 19:00 07:00 Intake Total 240 ml Balance 240 ml Intake Oral 240 ml # Voids 2 Objective General Appearance: no acute distress, cachetic HEENT: normocephalic, atraumatic Respiratory/Chest: chest wall non-tender, lungs clear, normal breath sounds Cardiovascular: normal peripheral pulses, normal rate Abdomen: normal bowel sounds, soft, non tender Genitourinary: normal external genitalia Extremities: no cyanosis Skin: no rash Laboratory Tests 01/10/17 05:00: White Blood Count 9.6, Red Blood Count 3.96L, Hemoglobin 11.4L, Hematocrit 37.3 , Mean Corpuscular Volume 94, Mean Corpuscular Hemoglobin 28.8, Mean Corpuscular Hemoglobin Concent 30.6L, Red Cell Distribution Width 14.4, Platelet Count 377, Mean Platelet Volume 6.3L, Neutrophils (%) (Auto) 52.7, Lymphocytes (%) (Auto) 34.2, Monocytes (%) (Auto) 4.5, Eosinophils (%) (Auto) 7.2H, Basophils (%) (Auto) 1.4, Sodium Level 144, Potassium Level 3.7, Chloride Level 108H, Carbon Dioxide Level 31, Anion Gap 5, Blood Urea Nitrogen 17, Creatinine 0.6, Estimat Glomerular Filtration Rate > 60, Glucose Level 75, Calcium Level 9.1 Current Medications Medications (Trade) Dose Ordered Sig/Sandra Route PRN Reason Start Time Stop Time Status Last Admin Dose Admin Al Hydroxide/Mg Hydroxide (Mylanta II) 30 ml Q6H PRN GT dyspepsia 12/22/16 12:00 01/16/17 11:59 12/27/16 21:50 Chlorhexidine Gluconate (Chioma-Hex 2%) 1 applic DAILY@2000 TOPIC 12/23/16 20:00 01/22/17 19:59 01/09/17 20:17 Dextrose (Dextrose 50%) STAT PRN IV Hypoglycemia 12/22/16 12:00 01/19/17 11:59 Digoxin (Lanoxin) 0.25 mg DAILY GT 12/23/16 09:00 01/17/17 09:29 01/10/17 09:28 Docusate Sodium (Colace) 200 mg TIDPRN PRN ORAL Constipation 2nd line agent 01/03/17 20:00 02/02/17 19:59 Gabapentin (Neurontin) 300 mg TID GT 12/22/16 13:00 01/18/17 13:59 01/10/17 12:01 Heparin Sodium (Porcine) (Heparin 5000 units/ml) 5,000 units EVERY 12 HOURS SUBQ 12/22/16 21:00 01/17/17 08:59 01/10/17 09:30 Hydroxyzine HCl (Atarax) 25 mg BID GT 12/22/16 18:00 01/17/17 08:59 01/10/17 09:28 Ketorolac Tromethamine (Toradol 30mg) 15 mg Q6H PRN IV Moderate Pain (Pain Scale 4-6) 01/08/17 20:15 01/13/17 20:14 01/10/17 12:02 Levothyroxine Sodium (Synthroid) 88 mcg ACBREAKFAST GT 12/29/16 06:30 01/28/17 06:29 01/10/17 05:40 Mirtazapine (Remeron) 30 mg BEDTIME GT 01/08/17 21:00 02/07/17 20:59 01/09/17 20:17 Nitroglycerin (Ntg) 0.4 mg Q5MIN X 3 DOSES PRN SL Prn Chest Pain 12/22/16 12:00 01/18/17 17:19 Ondansetron HCl (Zofran) 4 mg Q6H PRN IVP Nausea & Vomiting 12/22/16 12:00 01/16/17 11:59 Polyethylene Glycol (Miralax) 17 gm DAILYPRN PRN ORAL Constipation 12/22/16 12:00 01/19/17 11:59 Sennosides (Senokot) 8.6 mg DAILY ORAL 01/03/17 21:00 02/02/17 20:59 01/10/17 09:28 DEDRICK SOLANO Jan 10, 2017 17:49
[2017-01-10 20:00] VITALS: BP 141/59
--- NOTE | 2017-01-10 20:28 | General Progress Note ---
Assessment/Plan Status: stable, progressing Assessment/Plan mdd cont current meds provided ro/st Subjective Neurologic/Psychiatric: Reports: anxiety, depressed, emotional problems Allergies: Coded Allergies: ACETAMINOPHEN (Unverified Allergy, Unknown, 12/17/16) CODEINE (Unverified Allergy, Unknown, 03/04/14) IODINE (Unverified Allergy, Unknown, 12/17/16) Subjective pt is calm c/o long hospitalization Objective Last 24 Hour Vital Signs Date Time Temp Pulse Resp B/P (MAP) Pulse Ox O2 Delivery O2 Flow Rate FiO2 01/10/17 16:00 97.5 72 18 137/76 91 Room Air 01/10/17 13:00 97.7 82 19 111/59 97 Room Air 01/10/17 09:28 77 01/10/17 08:03 98.1 77 19 118/73 96 Room Air 01/10/17 04:00 97.9 70 20 126/72 91 Room Air 01/10/17 00:00 97.7 69 18 119/65 90 Room Air 01/09/17 21:30 93 Room Air 01/09/17 21:30 Room Air Intake and Output 01/10/17 01/11/17 19:00 07:00 Intake Total 360 ml Balance 360 ml Intake Oral 360 ml # Voids 2 # Bowel Movements 1 Laboratory Tests 01/10/17 05:00: White Blood Count 9.6, Red Blood Count 3.96L, Hemoglobin 11.4L, Hematocrit 37.3 , Mean Corpuscular Volume 94, Mean Corpuscular Hemoglobin 28.8, Mean Corpuscular Hemoglobin Concent 30.6L, Red Cell Distribution Width 14.4, Platelet Count 377, Mean Platelet Volume 6.3L, Neutrophils (%) (Auto) 52.7, Lymphocytes (%) (Auto) 34.2, Monocytes (%) (Auto) 4.5, Eosinophils (%) (Auto) 7.2H, Basophils (%) (Auto) 1.4, Sodium Level 144, Potassium Level 3.7, Chloride Level 108H, Carbon Dioxide Level 31, Anion Gap 5, Blood Urea Nitrogen 17, Creatinine 0.6, Estimat Glomerular Filtration Rate > 60, Glucose Level 75, Calcium Level 9.1 Height (Feet): 5 Height (Inches): 7.00 Weight (Pounds): 126 General Appearance: no apparent distress, alert, overweight Neurologic: alert, oriented x 3, responsive, depressed affect Kallie Fernandez M.D. Jan 10, 2017 20:28
[2017-01-10] MEDS: Dyna-Hex 2% Top Sol 2oz TOPIC SCH (20:56)
[2017-01-11] VITALS: BP 118/73
[2017-01-11 04:13] VITALS: BP 129/71
--- NOTE | 2017-01-11 05:24 | General Progress Note ---
Assessment/Plan Problem List: (1) Diabetes mellitus ICD Codes: E11.9 - Type 2 diabetes mellitus without complications SNOMED: 82354848 (2) Hypothyroidism ICD Codes: E03.9 - Hypothyroidism, unspecified SNOMED: 12551648 (3) COPD (chronic obstructive pulmonary disease) ICD Codes: J44.9 - Chronic obstructive pulmonary disease, unspecified SNOMED: 31125986 (4) CHF (congestive heart failure) ICD Codes: I50.9 - Heart failure, unspecified SNOMED: 33141072 Assessment/Plan continue Levothyroxine 88 mcg repeat TSH in 4 weeks Subjective Allergies: Coded Allergies: ACETAMINOPHEN (Unverified Allergy, Unknown, 12/17/16) CODEINE (Unverified Allergy, Unknown, 03/04/14) IODINE (Unverified Allergy, Unknown, 12/17/16) All Systems: reviewed and negative except above Subjective events noted Objective Last 24 Hour Vital Signs Date Time Temp Pulse Resp B/P (MAP) Pulse Ox O2 Delivery O2 Flow Rate FiO2 01/11/17 04:13 97.6 68 18 129/71 91 Room Air 01/11/17 00:29 97.7 01/11/17 00:00 97.7 72 18 118/73 92 Room Air 01/10/17 21:32 Room Air 01/10/17 21:31 99 Nasal Cannula 2.0 28 01/10/17 20:00 97.7 63 20 141/59 91 Room Air 01/10/17 16:00 97.5 72 18 137/76 91 Room Air 01/10/17 13:00 97.7 82 19 111/59 97 Room Air 01/10/17 09:28 77 01/10/17 08:03 98.1 77 19 118/73 96 Room Air Height (Feet): 5 Height (Inches): 7.00 Weight (Pounds): 126 General Appearance: no apparent distress Neck: normal alignment Cardiovascular: regular rhythm Respiratory/Chest: decreased breath sounds Objective Current Medications Medications (Trade) Dose Ordered Sig/Sandra Route PRN Reason Start Time Stop Time Status Last Admin Dose Admin Al Hydroxide/Mg Hydroxide (Mylanta II) 30 ml Q6H PRN GT dyspepsia 12/22/16 12:00 01/16/17 11:59 12/27/16 21:50 Chlorhexidine Gluconate (Chioma-Hex 2%) 1 applic DAILY@1999 TOPIC 12/23/16 20:00 01/22/17 19:59 01/09/17 20:17 Dextrose (Dextrose 50%) STAT PRN IV Hypoglycemia 12/22/16 12:00 01/19/17 11:59 Digoxin (Lanoxin) 0.25 mg DAILY GT 12/23/16 09:00 01/17/17 09:29 01/08/17 08:29 Docusate Sodium (Colace) 200 mg TIDPRN PRN ORAL Constipation 2nd line agent 01/03/17 20:00 02/02/17 19:59 Gabapentin (Neurontin) 300 mg TID GT 12/22/16 13:00 01/18/17 13:59 01/09/17 17:24 Heparin Sodium (Porcine) (Heparin 5000 units/ml) 5,000 units EVERY 12 HOURS SUBQ 12/22/16 21:00 01/17/17 08:59 01/09/17 20:20 Hydroxyzine HCl (Atarax) 25 mg BID GT 12/22/16 18:00 01/17/17 08:59 01/09/17 17:25 Ketorolac Tromethamine (Toradol 30mg) 15 mg Q6H PRN IV Moderate Pain (Pain Scale 4-6) 01/08/17 20:15 01/13/17 20:14 01/09/17 23:26 Levothyroxine Sodium (Synthroid) 88 mcg ACBREAKFAST GT 12/29/16 06:30 01/28/17 06:29 01/09/17 05:48 Mirtazapine (Remeron) 30 mg BEDTIME GT 01/08/17 21:00 02/07/17 20:59 01/09/17 20:17 Nitroglycerin (Ntg) 0.4 mg Q5MIN X 3 DOSES PRN SL Prn Chest Pain 12/22/16 12:00 01/18/17 17:19 Ondansetron HCl (Zofran) 4 mg Q6H PRN IVP Nausea & Vomiting 12/22/16 12:00 01/16/17 11:59 Polyethylene Glycol (Miralax) 17 gm DAILYPRN PRN ORAL Constipation 12/22/16 12:00 01/19/17 11:59 Sennosides (Senokot) 8.6 mg DAILY ORAL 01/03/17 21:00 02/02/17 20:59 01/09/17 09:30 ANGEL RICHARDSON Jan 11, 2017 05:24
--- NOTE | 2017-01-11 05:24 | General Progress Note ---
Assessment/Plan Problem List: (1) Diabetes mellitus ICD Codes: E11.9 - Type 2 diabetes mellitus without complications SNOMED: 24919319 (2) Hypothyroidism ICD Codes: E03.9 - Hypothyroidism, unspecified SNOMED: 45570239 (3) COPD (chronic obstructive pulmonary disease) ICD Codes: J44.9 - Chronic obstructive pulmonary disease, unspecified SNOMED: 37355626 (4) CHF (congestive heart failure) ICD Codes: I50.9 - Heart failure, unspecified SNOMED: 37490896 Assessment/Plan continue Levothyroxine 88 mcg repeat TSH in 4 weeks Subjective Allergies: Coded Allergies: ACETAMINOPHEN (Unverified Allergy, Unknown, 12/17/16) CODEINE (Unverified Allergy, Unknown, 03/04/14) IODINE (Unverified Allergy, Unknown, 12/17/16) All Systems: reviewed and negative except above Subjective events noted Objective Last 24 Hour Vital Signs Date Time Temp Pulse Resp B/P (MAP) Pulse Ox O2 Delivery O2 Flow Rate FiO2 01/11/17 04:13 97.6 68 18 129/71 91 Room Air 01/11/17 00:29 97.7 01/11/17 00:00 97.7 72 18 118/73 92 Room Air 01/10/17 21:32 Room Air 01/10/17 21:31 99 Nasal Cannula 2.0 28 01/10/17 20:00 97.7 63 20 141/59 91 Room Air 01/10/17 16:00 97.5 72 18 137/76 91 Room Air 01/10/17 13:00 97.7 82 19 111/59 97 Room Air 01/10/17 09:28 77 01/10/17 08:03 98.1 77 19 118/73 96 Room Air Height (Feet): 5 Height (Inches): 7.00 Weight (Pounds): 126 General Appearance: no apparent distress Neck: normal alignment Cardiovascular: regular rhythm Respiratory/Chest: decreased breath sounds Objective Current Medications Medications (Trade) Dose Ordered Sig/Sandra Route PRN Reason Start Time Stop Time Status Last Admin Dose Admin Al Hydroxide/Mg Hydroxide (Mylanta II) 30 ml Q6H PRN GT dyspepsia 12/22/16 12:00 01/16/17 11:59 12/27/16 21:50 Chlorhexidine Gluconate (Chioma-Hex 2%) 1 applic DAILY@1999 TOPIC 12/23/16 20:00 01/22/17 19:59 01/09/17 20:17 Dextrose (Dextrose 50%) STAT PRN IV Hypoglycemia 12/22/16 12:00 01/19/17 11:59 Digoxin (Lanoxin) 0.25 mg DAILY GT 12/23/16 09:00 01/17/17 09:29 01/08/17 08:29 Docusate Sodium (Colace) 200 mg TIDPRN PRN ORAL Constipation 2nd line agent 01/03/17 20:00 02/02/17 19:59 Gabapentin (Neurontin) 300 mg TID GT 12/22/16 13:00 01/18/17 13:59 01/09/17 17:24 Heparin Sodium (Porcine) (Heparin 5000 units/ml) 5,000 units EVERY 12 HOURS SUBQ 12/22/16 21:00 01/17/17 08:59 01/09/17 20:20 Hydroxyzine HCl (Atarax) 25 mg BID GT 12/22/16 18:00 01/17/17 08:59 01/09/17 17:25 Ketorolac Tromethamine (Toradol 30mg) 15 mg Q6H PRN IV Moderate Pain (Pain Scale 4-6) 01/08/17 20:15 01/13/17 20:14 01/09/17 23:26 Levothyroxine Sodium (Synthroid) 88 mcg ACBREAKFAST GT 12/29/16 06:30 01/28/17 06:29 01/09/17 05:48 Mirtazapine (Remeron) 30 mg BEDTIME GT 01/08/17 21:00 02/07/17 20:59 01/09/17 20:17 Nitroglycerin (Ntg) 0.4 mg Q5MIN X 3 DOSES PRN SL Prn Chest Pain 12/22/16 12:00 01/18/17 17:19 Ondansetron HCl (Zofran) 4 mg Q6H PRN IVP Nausea & Vomiting 12/22/16 12:00 01/16/17 11:59 Polyethylene Glycol (Miralax) 17 gm DAILYPRN PRN ORAL Constipation 12/22/16 12:00 01/19/17 11:59 Sennosides (Senokot) 8.6 mg DAILY ORAL 01/03/17 21:00 02/02/17 20:59 01/09/17 09:30 ANGEL RICHARDSON Jan 11, 2017 05:24
--- NOTE | 2017-01-11 05:24 | General Progress Note ---
Assessment/Plan Problem List: (1) Diabetes mellitus ICD Codes: E11.9 - Type 2 diabetes mellitus without complications SNOMED: 47330694 (2) Hypothyroidism ICD Codes: E03.9 - Hypothyroidism, unspecified SNOMED: 88772415 (3) COPD (chronic obstructive pulmonary disease) ICD Codes: J44.9 - Chronic obstructive pulmonary disease, unspecified SNOMED: 87810634 (4) CHF (congestive heart failure) ICD Codes: I50.9 - Heart failure, unspecified SNOMED: 28572698 Assessment/Plan continue Levothyroxine 88 mcg repeat TSH in 4 weeks Subjective Allergies: Coded Allergies: ACETAMINOPHEN (Unverified Allergy, Unknown, 12/17/16) CODEINE (Unverified Allergy, Unknown, 03/04/14) IODINE (Unverified Allergy, Unknown, 12/17/16) All Systems: reviewed and negative except above Subjective events noted Objective Last 24 Hour Vital Signs Date Time Temp Pulse Resp B/P (MAP) Pulse Ox O2 Delivery O2 Flow Rate FiO2 01/11/17 04:13 97.6 68 18 129/71 91 Room Air 01/11/17 00:29 97.7 01/11/17 00:00 97.7 72 18 118/73 92 Room Air 01/10/17 21:32 Room Air 01/10/17 21:31 99 Nasal Cannula 2.0 28 01/10/17 20:00 97.7 63 20 141/59 91 Room Air 01/10/17 16:00 97.5 72 18 137/76 91 Room Air 01/10/17 13:00 97.7 82 19 111/59 97 Room Air 01/10/17 09:28 77 01/10/17 08:03 98.1 77 19 118/73 96 Room Air Height (Feet): 5 Height (Inches): 7.00 Weight (Pounds): 126 General Appearance: no apparent distress Neck: normal alignment Cardiovascular: regular rhythm Respiratory/Chest: decreased breath sounds Objective Current Medications Medications (Trade) Dose Ordered Sig/Sandra Route PRN Reason Start Time Stop Time Status Last Admin Dose Admin Al Hydroxide/Mg Hydroxide (Mylanta II) 30 ml Q6H PRN GT dyspepsia 12/22/16 12:00 01/16/17 11:59 12/27/16 21:50 Chlorhexidine Gluconate (Chioma-Hex 2%) 1 applic DAILY@1999 TOPIC 12/23/16 20:00 01/22/17 19:59 01/09/17 20:17 Dextrose (Dextrose 50%) STAT PRN IV Hypoglycemia 12/22/16 12:00 01/19/17 11:59 Digoxin (Lanoxin) 0.25 mg DAILY GT 12/23/16 09:00 01/17/17 09:29 01/08/17 08:29 Docusate Sodium (Colace) 200 mg TIDPRN PRN ORAL Constipation 2nd line agent 01/03/17 20:00 02/02/17 19:59 Gabapentin (Neurontin) 300 mg TID GT 12/22/16 13:00 01/18/17 13:59 01/09/17 17:24 Heparin Sodium (Porcine) (Heparin 5000 units/ml) 5,000 units EVERY 12 HOURS SUBQ 12/22/16 21:00 01/17/17 08:59 01/09/17 20:20 Hydroxyzine HCl (Atarax) 25 mg BID GT 12/22/16 18:00 01/17/17 08:59 01/09/17 17:25 Ketorolac Tromethamine (Toradol 30mg) 15 mg Q6H PRN IV Moderate Pain (Pain Scale 4-6) 01/08/17 20:15 01/13/17 20:14 01/09/17 23:26 Levothyroxine Sodium (Synthroid) 88 mcg ACBREAKFAST GT 12/29/16 06:30 01/28/17 06:29 01/09/17 05:48 Mirtazapine (Remeron) 30 mg BEDTIME GT 01/08/17 21:00 02/07/17 20:59 01/09/17 20:17 Nitroglycerin (Ntg) 0.4 mg Q5MIN X 3 DOSES PRN SL Prn Chest Pain 12/22/16 12:00 01/18/17 17:19 Ondansetron HCl (Zofran) 4 mg Q6H PRN IVP Nausea & Vomiting 12/22/16 12:00 01/16/17 11:59 Polyethylene Glycol (Miralax) 17 gm DAILYPRN PRN ORAL Constipation 12/22/16 12:00 01/19/17 11:59 Sennosides (Senokot) 8.6 mg DAILY ORAL 01/03/17 21:00 02/02/17 20:59 01/09/17 09:30 ANGEL RICHARDSON Jan 11, 2017 05:24
[2017-01-11] MEDS: Ketorolac 30mg Inj IV PRN (06:37)
[2017-01-11 08:00] VITALS: BP 125/67
--- NOTE | 2017-01-11 08:31 | Pulmonology Progress Note ---
Assessment/Plan Assessment/Plan ASSESSMENT acute on chronic respiratory failure acute purulent bronchitis possible PNA, s/p Rx tracheostomy malfunctioning, s/p replacement of trach tube in ED COPD interstitial lung disease s/p decannulation hypothyroidism with elevated TSH dysphagia , G tube leaking G tube high aspiration risk depression sacrococcyx decub st 2 POA likely protein calorie malnutrition major depressive disorder PLAN OF CARE MS floor O2 HHN prn respiratory status stable after decannulation pulse ox stable on O2 via NC, no signs of respiratory distress sputum cx not collected, blood cx negative, stool C dif negative initially empiric abx for possible PNA, s/p rx a/tussive prn CXR with interstitial congestion leukocytosis resolved ID follows currently off abx, monitor clinically, no evidence of infection GT out - removed by GI BSSE and VSE done earlier , OK for quality of life to initiate diet as per ST recommendations with strict aspiration/reflux precautions and 1 to 1 supervision GI started on regular diet with texture modification as recommended by ST tolerates diet surgery follows, no need for surgical interventions DVT prophylaxis PT Rx continue TSH elevated, increase dose of levothyroxine Digoxin level stable BS management with SS of insulin and Actos, optimize as needed wound care as per wound nurse recommendations dietary eval noted, on dietary supplements as suggested psych follows per psych -no need for sitter , no need for psych hospital medical management with antidepressant GI eval appreciated for leaking G tube awaiting for placement ( w/chair bound) challenging and difficult to arrange placement case discussed and evaluated by supervising physician Subjective Allergies: Coded Allergies: ACETAMINOPHEN (Unverified Allergy, Unknown, 12/17/16) CODEINE (Unverified Allergy, Unknown, 03/04/14) IODINE (Unverified Allergy, Unknown, 12/17/16) Subjective no signs of respiratory distress on RA pulse ox stable tolerates diet, no signs of aspiration awaiting for placement w/chair bound challenging placement Objective Last 24 Hour Vital Signs Date Time Temp Pulse Resp B/P (MAP) Pulse Ox O2 Delivery O2 Flow Rate FiO2 01/11/17 07:07 97.6 01/11/17 04:13 97.6 68 18 129/71 91 Room Air 01/11/17 00:00 97.7 72 18 118/73 92 Room Air 01/10/17 21:32 Room Air 01/10/17 21:31 99 Nasal Cannula 2.0 28 01/10/17 20:00 97.7 63 20 141/59 91 Room Air 01/10/17 16:00 97.5 72 18 137/76 91 Room Air 01/10/17 13:00 97.7 82 19 111/59 97 Room Air 01/10/17 09:28 77 Objective General Appearance: no acute distress, cachetic HEENT: normocephalic, atraumatic, anicteric Respiratory/Chest: lungs clear with moderate air exchange, no respiratory distress, no accessory muscle use, other - old trach site with Band-aid C/D/I Cardiovascular: normal rate, regular rhythm, no JVD Abdomen: normal bowel sounds, soft, non tender Neurologic/Psychiatric: abnormal gait, alert, normal mood/affect, w/chair bound Current Medications Medications (Trade) Dose Ordered Sig/Sandra Route PRN Reason Start Time Stop Time Status Last Admin Dose Admin Al Hydroxide/Mg Hydroxide (Mylanta II) 30 ml Q6H PRN GT dyspepsia 12/22/16 12:00 01/16/17 11:59 12/27/16 21:50 Chlorhexidine Gluconate (Chioma-Hex 2%) 1 applic DAILY@2000 TOPIC 12/23/16 20:00 01/22/17 19:59 01/10/17 20:56 Dextrose (Dextrose 50%) STAT PRN IV Hypoglycemia 12/22/16 12:00 01/19/17 11:59 Digoxin (Lanoxin) 0.25 mg DAILY GT 12/23/16 09:00 01/17/17 09:29 01/10/17 09:28 Docusate Sodium (Colace) 200 mg TIDPRN PRN ORAL Constipation 2nd line agent 01/03/17 20:00 02/02/17 19:59 Gabapentin (Neurontin) 300 mg TID GT 12/22/16 13:00 01/18/17 13:59 01/10/17 17:56 Heparin Sodium (Porcine) (Heparin 5000 units/ml) 5,000 units EVERY 12 HOURS SUBQ 12/22/16 21:00 01/17/17 08:59 01/10/17 20:57 Hydroxyzine HCl (Atarax) 25 mg BID GT 12/22/16 18:00 01/17/17 08:59 01/10/17 17:57 Ketorolac Tromethamine (Toradol 30mg) 15 mg Q6H PRN IV Moderate Pain (Pain Scale 4-6) 01/08/17 20:15 01/13/17 20:14 01/11/17 06:37 Levothyroxine Sodium (Synthroid) 88 mcg ACBREAKFAST GT 12/29/16 06:30 01/28/17 06:29 01/11/17 06:19 Mirtazapine (Remeron) 30 mg BEDTIME GT 01/08/17 21:00 02/07/17 20:59 01/10/17 20:56 Nitroglycerin (Ntg) 0.4 mg Q5MIN X 3 DOSES PRN SL Prn Chest Pain 12/22/16 12:00 01/18/17 17:19 Ondansetron HCl (Zofran) 4 mg Q6H PRN IVP Nausea & Vomiting 12/22/16 12:00 01/16/17 11:59 Polyethylene Glycol (Miralax) 17 gm DAILYPRN PRN ORAL Constipation 12/22/16 12:00 01/19/17 11:59 Sennosides (Senokot) 8.6 mg DAILY ORAL 01/03/17 21:00 02/02/17 20:59 01/10/17 09:28 [facility] NP Jan 11, 2017 08:31
[2017-01-11] MEDS: Gabapentin 300 MG/6 ML Soln GT SCH ×3 (09:01→18:06)
[2017-01-11] MEDS: HydrOXYzine 25mg tab GT SCH ×2 (09:01→18:05)
[2017-01-11] MEDS: Sennosides 8.6mg ORAL SCH (09:01)
[2017-01-11] MEDS: Heparin 5000 units/ml inj SUBQ SCH ×2 (09:03→21:30)
--- NOTE | 2017-01-11 09:53 | Infectious Diseases Prog Note ---
Assessment/Plan Assessment/Plan SOB, SP likely related to malpositioned trach +/- ; resolved Possible PNA, s/p Rx , SCx: GNR x 2 m/l colonizer ; resolved -CXR: Interstitial disease nonspecific. CHF, pneumonitis not excluded -spu cx ordered, not collected Leukocytosis- ?reactive vs 2ry to PNA vs combination- resolved -Bcx Neg -u/a WBC 2-4 Diarrhea- neg cdiff COPD and chronic tracheostomy- s/p trach decanulized 12/21 HIV Neg CHF, spinal fusion, DVT, s/p hip surgery, chronic pain, correction resident No ABX allergies Full Code Plan: -Continue to monitor off abx -s/p 5d IV Ceftriaxone/azithromycin 12/21 -s/p 1 d IV Vanco/Cefpime 12/18 -s/p 1d Levaquin 12/17 -f/u Hep C ab (per patient request) -Monitor CBC/BMP, temperatures -Aspiration precautions. Subjective Allergies: Coded Allergies: ACETAMINOPHEN (Unverified Allergy, Unknown, 12/17/16) CODEINE (Unverified Allergy, Unknown, 03/04/14) IODINE (Unverified Allergy, Unknown, 12/17/16) Subjective afebrile, no leukocytosis off abx Objective Vital Signs Last 24 Hour Vital Signs Date Time Temp Pulse Resp B/P (MAP) Pulse Ox O2 Delivery O2 Flow Rate FiO2 01/11/17 09:14 Room Air 01/11/17 09:14 91 Room Air 01/11/17 09:01 69 01/11/17 08:00 96.8 69 19 125/67 96 Room Air 01/11/17 07:07 97.6 01/11/17 04:13 97.6 68 18 129/71 91 Room Air 01/11/17 00:00 97.7 72 18 118/73 92 Room Air 01/10/17 21:32 Room Air 01/10/17 21:31 99 Nasal Cannula 2.0 28 01/10/17 20:00 97.7 63 20 141/59 91 Room Air 01/10/17 16:00 97.5 72 18 137/76 91 Room Air 01/10/17 13:00 97.7 82 19 111/59 97 Room Air Height (Feet): 5 Height (Inches): 7.00 Weight (Pounds): 126 Objective General Appearance: WD/WN, frail Lines, tubes and drains: peripheral, gtube HEENT: normocephalic, atraumatic; trach decanulized Neck: non-tender, normal alignment Respiratory/Chest: chest wall non-tender, lungs clear Cardiovascular/Chest: normal peripheral pulses, normal rate Abdomen: normal bowel sounds, non tender Genitourinary/Rectal: normal genital exam, normal rectal exam Extremities: normal range of motion, non-tender Current Medications Medications (Trade) Dose Ordered Sig/Sandra Route PRN Reason Start Time Stop Time Status Last Admin Dose Admin Al Hydroxide/Mg Hydroxide (Mylanta II) 30 ml Q6H PRN GT dyspepsia 12/22/16 12:00 01/16/17 11:59 12/27/16 21:50 Chlorhexidine Gluconate (Chioma-Hex 2%) 1 applic DAILY@1999 TOPIC 12/23/16 20:00 01/22/17 19:59 01/10/17 20:56 Dextrose (Dextrose 50%) STAT PRN IV Hypoglycemia 12/22/16 12:00 01/19/17 11:59 Digoxin (Lanoxin) 0.25 mg DAILY GT 12/23/16 09:00 01/17/17 09:29 01/11/17 09:01 Docusate Sodium (Colace) 200 mg TIDPRN PRN ORAL Constipation 2nd line agent 01/03/17 20:00 02/02/17 19:59 Gabapentin (Neurontin) 300 mg TID GT 12/22/16 13:00 01/18/17 13:59 01/11/17 09:01 Heparin Sodium (Porcine) (Heparin 5000 units/ml) 5,000 units EVERY 12 HOURS SUBQ 12/22/16 21:00 01/17/17 08:59 01/11/17 09:03 Hydroxyzine HCl (Atarax) 25 mg BID GT 12/22/16 18:00 01/17/17 08:59 01/11/17 09:01 Ketorolac Tromethamine (Toradol 30mg) 15 mg Q6H PRN IV Moderate Pain (Pain Scale 4-6) 01/08/17 20:15 01/13/17 20:14 01/11/17 06:37 Levothyroxine Sodium (Synthroid) 88 mcg ACBREAKFAST GT 12/29/16 06:30 01/28/17 06:29 01/11/17 06:19 Mirtazapine (Remeron) 30 mg BEDTIME GT 01/08/17 21:00 02/07/17 20:59 01/10/17 20:56 Nitroglycerin (Ntg) 0.4 mg Q5MIN X 3 DOSES PRN SL Prn Chest Pain 12/22/16 12:00 01/18/17 17:19 Ondansetron HCl (Zofran) 4 mg Q6H PRN IVP Nausea & Vomiting 12/22/16 12:00 01/16/17 11:59 Polyethylene Glycol (Miralax) 17 gm DAILYPRN PRN ORAL Constipation 12/22/16 12:00 01/19/17 11:59 Sennosides (Senokot) 8.6 mg DAILY ORAL 01/03/17 21:00 02/02/17 20:59 01/11/17 09:01 Lisa Cartagena M.D. Jan 11, 2017 09:53
--- NOTE | 2017-01-11 10:23 | GI Progress Note ---
Assessment/Plan Problems: (1) PEG (percutaneous endoscopic gastrostomy) adjustment/replacement/removal ICD Codes: Z43.1 - Encounter for attention to gastrostomy SNOMED: 997547512, 080115738 (2) Chronic pain ICD Codes: G89.29 - Other chronic pain SNOMED: 45136275 (3) Diabetes mellitus ICD Codes: E11.9 - Type 2 diabetes mellitus without complications SNOMED: 99028311 (4) Hypothyroidism ICD Codes: E03.9 - Hypothyroidism, unspecified SNOMED: 08064896 Status: stable Status Narrative Discussed with Dr. Mesa. Assessment/Plan okay for DC per GI standpoint cdiff negative s/p GT removal GT site care daily/prn soft diet, push PO fu labs fu Hep C antibody Subjective Subjective limited tolerating diet Objective Last 24 Hour Vital Signs Date Time Temp Pulse Resp B/P (MAP) Pulse Ox O2 Delivery O2 Flow Rate FiO2 01/11/17 09:14 Room Air 01/11/17 09:14 91 Room Air 01/11/17 09:01 69 01/11/17 08:00 96.8 69 19 125/67 96 Room Air 01/11/17 07:07 97.6 01/11/17 04:13 97.6 68 18 129/71 91 Room Air 01/11/17 00:00 97.7 72 18 118/73 92 Room Air 01/10/17 21:32 Room Air 01/10/17 21:31 99 Nasal Cannula 2.0 28 01/10/17 20:00 97.7 63 20 141/59 91 Room Air 01/10/17 16:00 97.5 72 18 137/76 91 Room Air 01/10/17 13:00 97.7 82 19 111/59 97 Room Air Height (Feet): 5 Height (Inches): 7.00 Weight (Pounds): 126 General Appearance: WD/WN, no apparent distress, alert Cardiovascular: normal rate Respiratory/Chest: no respiratory distress Abdominal Exam: normal bowel sounds, non tender, soft, GT site - healing Extremities: non-tender Shruti Roberson N.P. Jan 11, 2017 10:23
--- NOTE | 2017-01-11 10:23 | GI Progress Note ---
Assessment/Plan Problems: (1) PEG (percutaneous endoscopic gastrostomy) adjustment/replacement/removal ICD Codes: Z43.1 - Encounter for attention to gastrostomy SNOMED: 027275220, 699433099 (2) Chronic pain ICD Codes: G89.29 - Other chronic pain SNOMED: 70949807 (3) Diabetes mellitus ICD Codes: E11.9 - Type 2 diabetes mellitus without complications SNOMED: 33117859 (4) Hypothyroidism ICD Codes: E03.9 - Hypothyroidism, unspecified SNOMED: 81780814 Status: stable Status Narrative Discussed with Dr. Mesa. Assessment/Plan okay for DC per GI standpoint cdiff negative s/p GT removal GT site care daily/prn soft diet, push PO fu labs fu Hep C antibody Subjective Subjective limited tolerating diet Objective Last 24 Hour Vital Signs Date Time Temp Pulse Resp B/P (MAP) Pulse Ox O2 Delivery O2 Flow Rate FiO2 01/11/17 09:14 Room Air 01/11/17 09:14 91 Room Air 01/11/17 09:01 69 01/11/17 08:00 96.8 69 19 125/67 96 Room Air 01/11/17 07:07 97.6 01/11/17 04:13 97.6 68 18 129/71 91 Room Air 01/11/17 00:00 97.7 72 18 118/73 92 Room Air 01/10/17 21:32 Room Air 01/10/17 21:31 99 Nasal Cannula 2.0 28 01/10/17 20:00 97.7 63 20 141/59 91 Room Air 01/10/17 16:00 97.5 72 18 137/76 91 Room Air 01/10/17 13:00 97.7 82 19 111/59 97 Room Air Height (Feet): 5 Height (Inches): 7.00 Weight (Pounds): 126 General Appearance: WD/WN, no apparent distress, alert Cardiovascular: normal rate Respiratory/Chest: no respiratory distress Abdominal Exam: normal bowel sounds, non tender, soft, GT site - healing Extremities: non-tender Shruti Roberson N.P. Jan 11, 2017 10:23
--- NOTE | 2017-01-11 10:23 | GI Progress Note ---
Assessment/Plan Problems: (1) PEG (percutaneous endoscopic gastrostomy) adjustment/replacement/removal ICD Codes: Z43.1 - Encounter for attention to gastrostomy SNOMED: 817698488, 444346730 (2) Chronic pain ICD Codes: G89.29 - Other chronic pain SNOMED: 12523541 (3) Diabetes mellitus ICD Codes: E11.9 - Type 2 diabetes mellitus without complications SNOMED: 37466371 (4) Hypothyroidism ICD Codes: E03.9 - Hypothyroidism, unspecified SNOMED: 66745269 Status: stable Status Narrative Discussed with Dr. Mesa. Assessment/Plan okay for DC per GI standpoint cdiff negative s/p GT removal GT site care daily/prn soft diet, push PO fu labs fu Hep C antibody Subjective Subjective limited tolerating diet Objective Last 24 Hour Vital Signs Date Time Temp Pulse Resp B/P (MAP) Pulse Ox O2 Delivery O2 Flow Rate FiO2 01/11/17 09:14 Room Air 01/11/17 09:14 91 Room Air 01/11/17 09:01 69 01/11/17 08:00 96.8 69 19 125/67 96 Room Air 01/11/17 07:07 97.6 01/11/17 04:13 97.6 68 18 129/71 91 Room Air 01/11/17 00:00 97.7 72 18 118/73 92 Room Air 01/10/17 21:32 Room Air 01/10/17 21:31 99 Nasal Cannula 2.0 28 01/10/17 20:00 97.7 63 20 141/59 91 Room Air 01/10/17 16:00 97.5 72 18 137/76 91 Room Air 01/10/17 13:00 97.7 82 19 111/59 97 Room Air Height (Feet): 5 Height (Inches): 7.00 Weight (Pounds): 126 General Appearance: WD/WN, no apparent distress, alert Cardiovascular: normal rate Respiratory/Chest: no respiratory distress Abdominal Exam: normal bowel sounds, non tender, soft, GT site - healing Extremities: non-tender Shruti Roberson N.P. Jan 11, 2017 10:23
[2017-01-11 12:00] VITALS: BP 117/71
--- NOTE | 2017-01-11 14:36 | General Progress Note ---
Assessment/Plan Status: stable, progressing Assessment/Plan mdd cont current meds provided ro/st Subjective Neurologic/Psychiatric: Reports: anxiety, depressed, emotional problems Allergies: Coded Allergies: ACETAMINOPHEN (Unverified Allergy, Unknown, 12/17/16) CODEINE (Unverified Allergy, Unknown, 03/04/14) IODINE (Unverified Allergy, Unknown, 12/17/16) Subjective pt was angry and wanted more food. she has low tolerance for stress Objective Last 24 Hour Vital Signs Date Time Temp Pulse Resp B/P (MAP) Pulse Ox O2 Delivery O2 Flow Rate FiO2 01/11/17 12:00 97.3 67 19 117/71 92 Room Air 01/11/17 09:14 Room Air 01/11/17 09:14 91 Room Air 01/11/17 09:01 69 01/11/17 08:00 96.8 69 19 125/67 96 Room Air 01/11/17 07:07 97.6 01/11/17 04:13 97.6 68 18 129/71 91 Room Air 01/11/17 00:00 97.7 72 18 118/73 92 Room Air 01/10/17 21:32 Room Air 01/10/17 21:31 99 Nasal Cannula 2.0 28 01/10/17 20:00 97.7 63 20 141/59 91 Room Air 01/10/17 16:00 97.5 72 18 137/76 91 Room Air Intake and Output 01/11/17 01/12/17 19:00 07:00 # Bowel Movements 1 Height (Feet): 5 Height (Inches): 7.00 Weight (Pounds): 126 General Appearance: no apparent distress, alert, overweight Neurologic: alert, oriented x 3, responsive, depressed affect Kallie Fernandez M.D. Jan 11, 2017 14:36
[2017-01-11] MEDS: Ketorolac 30mg Inj IM PRN ×2 (15:17→21:40)
[2017-01-11 16:00] VITALS: BP 118/71
[2017-01-11 20:00] VITALS: BP 120/71
[2017-01-11] MEDS: Dyna-Hex 2% Top Sol 2oz TOPIC SCH (21:27)
[2017-01-12] VITALS: BP 122/67
[2017-01-12 04:00] VITALS: BP 112/68
[2017-01-12 08:00] VITALS: BP 135/55
[2017-01-12] MEDS: Sennosides 8.6mg ORAL SCH (08:44)
[2017-01-12] MEDS: Gabapentin 300 MG/6 ML Soln GT SCH ×3 (08:44→17:22)
[2017-01-12] MEDS: HydrOXYzine 25mg tab GT SCH ×2 (08:44→17:22)
[2017-01-12] MEDS: Heparin 5000 units/ml inj SUBQ SCH ×2 (08:45→20:26)
[2017-01-12] MEDS: Ketorolac 30mg Inj IM PRN ×3 (08:46→23:29)
[2017-01-12 12:00] VITALS: BP 120/58
--- NOTE | 2017-01-12 13:15 | Pulmonology Progress Note ---
Assessment/Plan Problems: (1) Purulent bronchitis (2) Acute and chronic respiratory failure ([id number]) (3) Tracheostomy malfunction (4) COPD (chronic obstructive pulmonary disease) (5) Interstitial lung disease (6) Diabetes mellitus (7) Hypothyroidism Assessment/Plan symptomatic treatment tolerating off trach, respiratory treatment check sputum psych evaluation all notes reviewed awaiting discharge Subjective ROS Limited/Unobtainable: No Allergies: Coded Allergies: ACETAMINOPHEN (Unverified Allergy, Unknown, 12/17/16) CODEINE (Unverified Allergy, Unknown, 03/04/14) IODINE (Unverified Allergy, Unknown, 12/17/16) Objective Last 24 Hour Vital Signs Date Time Temp Pulse Resp B/P (MAP) Pulse Ox O2 Delivery O2 Flow Rate FiO2 01/12/17 12:00 97.3 59 17 120/58 99 Nasal Cannula 2.0 01/12/17 09:16 97.6 01/12/17 08:44 62 01/12/17 08:00 97.3 62 17 135/55 100 Nasal Cannula 2.0 01/12/17 04:00 97.6 56 20 112/68 99 Nasal Cannula 2.0 01/12/17 00:00 97.5 63 19 122/67 93 Room Air 01/11/17 20:00 97.3 56 20 120/71 90 Room Air 01/11/17 19:21 91 Nasal Cannula 2.0 28 01/11/17 19:21 Nasal Cannula 2.0 28 01/11/17 16:00 97.7 78 18 118/71 97 Room Air Objective General Appearance: no acute distress, cachetic HEENT: normocephalic, atraumatic Respiratory/Chest: chest wall non-tender, lungs clear, normal breath sounds Cardiovascular: normal peripheral pulses, normal rate Abdomen: normal bowel sounds, soft, non tender Genitourinary: normal external genitalia Extremities: no cyanosis Skin: no rash Current Medications Medications (Trade) Dose Ordered Sig/Sandra Route PRN Reason Start Time Stop Time Status Last Admin Dose Admin Al Hydroxide/Mg Hydroxide (Mylanta II) 30 ml Q6H PRN GT dyspepsia 12/22/16 12:00 01/16/17 11:59 12/27/16 21:50 Chlorhexidine Gluconate (Chioma-Hex 2%) 1 applic DAILY@1999 TOPIC 12/23/16 20:00 11/7/17 19:59 01/11/17 21:27 Dextrose (Dextrose 50%) STAT PRN IV Hypoglycemia 12/22/16 12:00 01/19/17 11:59 Digoxin (Lanoxin) 0.25 mg DAILY GT 12/23/16 09:00 01/17/17 09:29 01/12/17 08:44 Docusate Sodium (Colace) 200 mg TIDPRN PRN ORAL Constipation 2nd line agent 01/03/17 20:00 02/02/17 19:59 Gabapentin (Neurontin) 300 mg TID GT 12/22/16 13:00 01/18/17 13:59 01/12/17 12:31 Heparin Sodium (Porcine) (Heparin 5000 units/ml) 5,000 units EVERY 12 HOURS SUBQ 12/22/16 21:00 01/17/17 08:59 01/12/17 08:45 Hydroxyzine HCl (Atarax) 25 mg BID GT 12/22/16 18:00 01/17/17 08:59 01/12/17 08:44 Ketorolac Tromethamine (Toradol 30mg) 15 mg Q6H PRN IM Moderate Pain (Pain Scale 4-6) 01/11/17 15:00 01/16/17 14:59 01/12/17 08:46 Levothyroxine Sodium (Synthroid) 88 mcg ACBREAKFAST GT 12/29/16 06:30 01/28/17 06:29 01/12/17 06:51 Mirtazapine (Remeron) 30 mg BEDTIME GT 01/08/17 21:00 02/07/17 20:59 01/11/17 21:27 Nitroglycerin (Ntg) 0.4 mg Q5MIN X 3 DOSES PRN SL Prn Chest Pain 12/22/16 12:00 01/18/17 17:19 Ondansetron HCl (Zofran) 4 mg Q6H PRN IVP Nausea & Vomiting 12/22/16 12:00 01/16/17 11:59 Polyethylene Glycol (Miralax) 17 gm DAILYPRN PRN ORAL Constipation 12/22/16 12:00 01/19/17 11:59 Sennosides (Senokot) 8.6 mg DAILY ORAL 01/03/17 21:00 02/02/17 20:59 01/12/17 08:44 DEDRICK SOLANO Jan 12, 2017 13:15
[2017-01-12 16:00] VITALS: BP 129/58
[2017-01-12 20:00] VITALS: BP 135/60
[2017-01-12] MEDS: Dyna-Hex 2% Top Sol 2oz TOPIC SCH (20:23)
[2017-01-13] VITALS (7 sets, daily range): BP systolic 99–145; BP diastolic 56–79
[2017-01-13] MEDS: Ketorolac 30mg Inj IM PRN ×3 (06:08→20:20)
[2017-01-13] MEDS: HydrOXYzine 25mg tab GT SCH ×2 (09:19→18:09)
[2017-01-13] MEDS: Sennosides 8.6mg ORAL SCH (09:21)
[2017-01-13] MEDS: Heparin 5000 units/ml inj SUBQ SCH ×2 (09:22→20:21)
[2017-01-13] MEDS: Gabapentin 300 MG/6 ML Soln GT SCH ×3 (09:55→18:09)
--- NOTE | 2017-01-13 22:19 | Pulmonology Progress Note ---
Assessment/Plan Problems: (1) Purulent bronchitis (2) Acute and chronic respiratory failure ([id number]) (3) Tracheostomy malfunction (4) COPD (chronic obstructive pulmonary disease) (5) Interstitial lung disease (6) Diabetes mellitus (7) Hypothyroidism Assessment/Plan symptomatic treatment tolerating off trach, respiratory treatment check sputum psych evaluation all notes reviewed awaiting discharge Subjective ROS Limited/Unobtainable: No Constitutional: Reports: no symptoms HEENT: Repors: no symptoms Allergies: Coded Allergies: ACETAMINOPHEN (Unverified Allergy, Unknown, 12/17/16) CODEINE (Unverified Allergy, Unknown, 03/04/14) IODINE (Unverified Allergy, Unknown, 12/17/16) Objective Last 24 Hour Vital Signs Date Time Temp Pulse Resp B/P (MAP) Pulse Ox O2 Delivery O2 Flow Rate FiO2 01/13/17 20:50 97.6 01/13/17 20:20 56 18 102/56 01/13/17 20:00 97.5 58 18 99/56 98 Nasal Cannula 2.0 01/13/17 19:29 99 Nasal Cannula 2.0 28 01/13/17 19:29 Nasal Cannula 2.0 28 01/13/17 15:52 97.6 56 18 145/56 100 Nasal Cannula 3.0 01/13/17 11:44 98.4 60 18 132/62 100 Room Air 01/13/17 09:00 56 01/13/17 08:20 Nasal Cannula 2.0 28 01/13/17 08:20 98 Nasal Cannula 2.0 28 01/13/17 04:00 98.6 56 18 139/71 96 Nasal Cannula 2.0 01/13/17 00:00 97.7 60 18 142/79 99 Nasal Cannula 2.0 Intake and Output 01/13/17 01/14/17 19:00 07:00 Intake Total 720 ml Balance 720 ml Intake Oral 720 ml # Voids 4 # Bowel Movements 4 Objective General Appearance: no acute distress, cachetic HEENT: normocephalic, atraumatic Respiratory/Chest: chest wall non-tender, lungs clear, normal breath sounds Cardiovascular: normal peripheral pulses, normal rate Abdomen: normal bowel sounds, soft, non tender Genitourinary: normal external genitalia Extremities: no cyanosis Skin: no rash Current Medications Medications (Trade) Dose Ordered Sig/Sandra Route PRN Reason Start Time Stop Time Status Last Admin Dose Admin Al Hydroxide/Mg Hydroxide (Mylanta II) 30 ml Q6H PRN GT dyspepsia 12/22/16 12:00 01/16/17 11:59 12/27/16 21:50 Dextrose (Dextrose 50%) STAT PRN IV Hypoglycemia 12/22/16 12:00 01/19/17 11:59 Digoxin (Lanoxin) 0.25 mg DAILY GT 12/23/16 09:00 01/17/17 09:29 01/12/17 08:44 Docusate Sodium (Colace) 200 mg TIDPRN PRN ORAL Constipation 2nd line agent 01/03/17 20:00 02/02/17 19:59 Gabapentin (Neurontin) 300 mg TID GT 12/22/16 13:00 01/18/17 13:59 01/13/17 18:09 Heparin Sodium (Porcine) (Heparin 5000 units/ml) 5,000 units EVERY 12 HOURS SUBQ 12/22/16 21:00 01/17/17 08:59 01/13/17 20:21 Hydroxyzine HCl (Atarax) 25 mg BID GT 12/22/16 18:00 01/17/17 08:59 01/13/17 18:09 Ketorolac Tromethamine (Toradol 30mg) 15 mg Q6H PRN IM Moderate Pain (Pain Scale 4-6) 01/11/17 15:00 01/16/17 14:59 01/13/17 20:20 Levothyroxine Sodium (Synthroid) 88 mcg ACBREAKFAST GT 12/29/16 06:30 01/28/17 06:29 01/13/17 05:55 Mirtazapine (Remeron) 30 mg BEDTIME GT 01/08/17 21:00 02/07/17 20:59 01/13/17 20:20 Nitroglycerin (Ntg) 0.4 mg Q5MIN X 3 DOSES PRN SL Prn Chest Pain 12/22/16 12:00 01/18/17 17:19 Ondansetron HCl (Zofran) 4 mg Q6H PRN IVP Nausea & Vomiting 12/22/16 12:00 01/16/17 11:59 Polyethylene Glycol (Miralax) 17 gm DAILYPRN PRN ORAL Constipation 12/22/16 12:00 01/19/17 11:59 Sennosides (Senokot) 8.6 mg DAILY ORAL 01/03/17 21:00 02/02/17 20:59 01/13/17 09:21 DEDRICK SOLANO Jan 13, 2017 22:19
--- NOTE | 2017-01-13 22:54 | General Progress Note ---
Assessment/Plan Status: stable, progressing Assessment/Plan mdd cont current meds provided ro/st Subjective Date patient seen: Jan 12, 2017 Neurologic/Psychiatric: Reports: anxiety, depressed, emotional problems Allergies: Coded Allergies: ACETAMINOPHEN (Unverified Allergy, Unknown, 12/17/16) CODEINE (Unverified Allergy, Unknown, 03/04/14) IODINE (Unverified Allergy, Unknown, 12/17/16) Subjective pt was tearful she has low tolerance for stress Objective Last 24 Hour Vital Signs Date Time Temp Pulse Resp B/P (MAP) Pulse Ox O2 Delivery O2 Flow Rate FiO2 01/13/17 20:50 97.6 01/13/17 20:20 56 18 102/56 01/13/17 20:00 97.5 58 18 99/56 98 Nasal Cannula 2.0 01/13/17 19:29 99 Nasal Cannula 2.0 28 01/13/17 19:29 Nasal Cannula 2.0 28 01/13/17 15:52 97.6 56 18 145/56 100 Nasal Cannula 3.0 01/13/17 11:44 98.4 60 18 132/62 100 Room Air 01/13/17 09:00 56 01/13/17 08:20 Nasal Cannula 2.0 28 01/13/17 08:20 98 Nasal Cannula 2.0 28 01/13/17 04:00 98.6 56 18 139/71 96 Nasal Cannula 2.0 01/13/17 00:00 97.7 60 18 142/79 99 Nasal Cannula 2.0 Intake and Output 01/13/17 01/14/17 19:00 07:00 Intake Total 720 ml Balance 720 ml Intake Oral 720 ml # Voids 4 # Bowel Movements 4 Height (Feet): 5 Height (Inches): 7.00 Weight (Pounds): 126 General Appearance: no apparent distress, alert Neurologic: alert, oriented x 3, responsive, depressed affect Kallie Fernandez M.D. Jan 13, 2017 22:54
--- NOTE | 2017-01-13 22:55 | Geriatric Progress Note ---
Assessment/Plan Discussed with: patient Subjective Constitutional: Reports: malaise, weakness Mood/Memory: Reports: prior hx, anxiety, depressed feelings Geriatric Geriatric Last 24 Hour Vital Signs Date Time Temp Pulse Resp B/P (MAP) Pulse Ox O2 Delivery O2 Flow Rate FiO2 01/13/17 20:50 97.6 01/13/17 20:20 56 18 102/56 01/13/17 20:00 97.5 58 18 99/56 98 Nasal Cannula 2.0 01/13/17 19:29 99 Nasal Cannula 2.0 28 01/13/17 19:29 Nasal Cannula 2.0 28 01/13/17 15:52 97.6 56 18 145/56 100 Nasal Cannula 3.0 01/13/17 11:44 98.4 60 18 132/62 100 Room Air 01/13/17 09:00 56 01/13/17 08:20 Nasal Cannula 2.0 28 01/13/17 08:20 98 Nasal Cannula 2.0 28 01/13/17 04:00 98.6 56 18 139/71 96 Nasal Cannula 2.0 01/13/17 00:00 97.7 60 18 142/79 99 Nasal Cannula 2.0 Intake and Output 01/13/17 01/14/17 19:00 07:00 Intake Total 720 ml Balance 720 ml Intake Oral 720 ml # Voids 4 # Bowel Movements 4 Current Medications Medications (Trade) Dose Ordered Sig/Sandra Route PRN Reason Start Time Stop Time Status Last Admin Dose Admin Al Hydroxide/Mg Hydroxide (Mylanta II) 30 ml Q6H PRN GT dyspepsia 12/22/16 12:00 01/16/17 11:59 12/27/16 21:50 Dextrose (Dextrose 50%) STAT PRN IV Hypoglycemia 12/22/16 12:00 01/19/17 11:59 Digoxin (Lanoxin) 0.25 mg DAILY GT 12/23/16 09:00 01/17/17 09:29 01/12/17 08:44 Docusate Sodium (Colace) 200 mg TIDPRN PRN ORAL Constipation 2nd line agent 01/03/17 20:00 02/02/17 19:59 Gabapentin (Neurontin) 300 mg TID GT 12/22/16 13:00 01/18/17 13:59 01/13/17 18:09 Heparin Sodium (Porcine) (Heparin 5000 units/ml) 5,000 units EVERY 12 HOURS SUBQ 12/22/16 21:00 01/17/17 08:59 01/13/17 20:21 Hydroxyzine HCl (Atarax) 25 mg BID GT 12/22/16 18:00 01/17/17 08:59 01/13/17 18:09 Ketorolac Tromethamine (Toradol 30mg) 15 mg Q6H PRN IM Moderate Pain (Pain Scale 4-6) 01/11/17 15:00 01/16/17 14:59 01/13/17 20:20 Levothyroxine Sodium (Synthroid) 88 mcg ACBREAKFAST GT 12/29/16 06:30 01/28/17 06:29 01/13/17 05:55 Mirtazapine (Remeron) 30 mg BEDTIME GT 01/08/17 21:00 02/07/17 20:59 01/13/17 20:20 Nitroglycerin (Ntg) 0.4 mg Q5MIN X 3 DOSES PRN SL Prn Chest Pain 12/22/16 12:00 01/18/17 17:19 Ondansetron HCl (Zofran) 4 mg Q6H PRN IVP Nausea & Vomiting 12/22/16 12:00 01/16/17 11:59 Polyethylene Glycol (Miralax) 17 gm DAILYPRN PRN ORAL Constipation 12/22/16 12:00 01/19/17 11:59 Sennosides (Senokot) 8.6 mg DAILY ORAL 01/03/17 21:00 02/02/17 20:59 01/13/17 09:21 Height (Feet): 5 Height (Inches): 7.00 Weight (Pounds): 126 General Appearance: no apparent distress, alert, good eye contact, disheveled Neurologic: alert, oriented x3, responsive Kallie Fernandez M.D. Jan 13, 2017 22:55
[2017-01-14 04:00] VITALS: BP 121/67
[2017-01-14] MEDS: Ketorolac 30mg Inj IM PRN ×3 (05:28→19:57)
[2017-01-14 08:00] VITALS: BP 117/60
[2017-01-14] MEDS: HydrOXYzine 25mg tab GT SCH ×2 (08:30→17:27)
[2017-01-14] MEDS: Gabapentin 300 MG/6 ML Soln GT SCH ×3 (08:32→17:26)
[2017-01-14] MEDS: Heparin 5000 units/ml inj SUBQ SCH ×2 (08:33→20:03)
[2017-01-14] MEDS: Sennosides 8.6mg ORAL SCH (08:33)
--- NOTE | 2017-01-14 10:25 | GI Progress Note ---
Assessment/Plan Problems: (1) PEG (percutaneous endoscopic gastrostomy) adjustment/replacement/removal ICD Codes: Z43.1 - Encounter for attention to gastrostomy SNOMED: 562964877, 891547989 (2) Chronic pain ICD Codes: G89.29 - Other chronic pain SNOMED: 54352472 (3) Diabetes mellitus ICD Codes: E11.9 - Type 2 diabetes mellitus without complications SNOMED: 56343885 (4) Hypothyroidism ICD Codes: E03.9 - Hypothyroidism, unspecified SNOMED: 80574362 Status: stable, unchanged Status Narrative Discussed with Dr. Mesa. Assessment/Plan okay for DC per GI standpoint cdiff negative s/p GT removal GT site care daily/prn soft diet, push PO fu labs fu Hep C antibody Subjective Subjective limited tolerating diet Objective Last 24 Hour Vital Signs Date Time Temp Pulse Resp B/P (MAP) Pulse Ox O2 Delivery O2 Flow Rate FiO2 01/14/17 08:33 54 01/14/17 08:00 97.3 61 17 117/60 97 Room Air 01/14/17 07:50 Nasal Cannula 2.0 28 01/14/17 07:50 98 Nasal Cannula 2.0 28 01/14/17 05:58 97.6 01/14/17 04:00 97.6 67 18 121/67 97 Room Air 01/13/17 23:56 97.2 66 20 125/56 96 Nasal Cannula 2.0 01/13/17 20:20 56 18 102/56 01/13/17 20:00 97.5 58 18 99/56 98 Nasal Cannula 2.0 01/13/17 19:29 99 Nasal Cannula 2.0 28 01/13/17 19:29 Nasal Cannula 2.0 28 01/13/17 15:52 97.6 56 18 145/56 100 Nasal Cannula 3.0 01/13/17 11:44 98.4 60 18 132/62 100 Room Air Height (Feet): 5 Height (Inches): 7.00 Weight (Pounds): 126 General Appearance: WD/WN, no apparent distress, alert Cardiovascular: normal rate Respiratory/Chest: normal breath sounds, no respiratory distress Abdominal Exam: normal bowel sounds, non tender, soft Shruti Roberson NCoco Jan 14, 2017 10:25
--- NOTE | 2017-01-14 10:25 | GI Progress Note ---
Assessment/Plan Problems: (1) PEG (percutaneous endoscopic gastrostomy) adjustment/replacement/removal ICD Codes: Z43.1 - Encounter for attention to gastrostomy SNOMED: 140542535, 366404763 (2) Chronic pain ICD Codes: G89.29 - Other chronic pain SNOMED: 01781670 (3) Diabetes mellitus ICD Codes: E11.9 - Type 2 diabetes mellitus without complications SNOMED: 92280159 (4) Hypothyroidism ICD Codes: E03.9 - Hypothyroidism, unspecified SNOMED: 27245064 Status: stable, unchanged Status Narrative Discussed with Dr. Mesa. Assessment/Plan okay for DC per GI standpoint cdiff negative s/p GT removal GT site care daily/prn soft diet, push PO fu labs fu Hep C antibody Subjective Subjective limited tolerating diet Objective Last 24 Hour Vital Signs Date Time Temp Pulse Resp B/P (MAP) Pulse Ox O2 Delivery O2 Flow Rate FiO2 01/14/17 08:33 54 01/14/17 08:00 97.3 61 17 117/60 97 Room Air 01/14/17 07:50 Nasal Cannula 2.0 28 01/14/17 07:50 98 Nasal Cannula 2.0 28 01/14/17 05:58 97.6 01/14/17 04:00 97.6 67 18 121/67 97 Room Air 01/13/17 23:56 97.2 66 20 125/56 96 Nasal Cannula 2.0 01/13/17 20:20 56 18 102/56 01/13/17 20:00 97.5 58 18 99/56 98 Nasal Cannula 2.0 01/13/17 19:29 99 Nasal Cannula 2.0 28 01/13/17 19:29 Nasal Cannula 2.0 28 01/13/17 15:52 97.6 56 18 145/56 100 Nasal Cannula 3.0 01/13/17 11:44 98.4 60 18 132/62 100 Room Air Height (Feet): 5 Height (Inches): 7.00 Weight (Pounds): 126 General Appearance: WD/WN, no apparent distress, alert Cardiovascular: normal rate Respiratory/Chest: normal breath sounds, no respiratory distress Abdominal Exam: normal bowel sounds, non tender, soft Shruti Roberson NCoco Jan 14, 2017 10:25
--- NOTE | 2017-01-14 10:25 | GI Progress Note ---
Assessment/Plan Problems: (1) PEG (percutaneous endoscopic gastrostomy) adjustment/replacement/removal ICD Codes: Z43.1 - Encounter for attention to gastrostomy SNOMED: 809988515, 709235931 (2) Chronic pain ICD Codes: G89.29 - Other chronic pain SNOMED: 34679824 (3) Diabetes mellitus ICD Codes: E11.9 - Type 2 diabetes mellitus without complications SNOMED: 59967347 (4) Hypothyroidism ICD Codes: E03.9 - Hypothyroidism, unspecified SNOMED: 52487569 Status: stable, unchanged Status Narrative Discussed with Dr. Mesa. Assessment/Plan okay for DC per GI standpoint cdiff negative s/p GT removal GT site care daily/prn soft diet, push PO fu labs fu Hep C antibody Subjective Subjective limited tolerating diet Objective Last 24 Hour Vital Signs Date Time Temp Pulse Resp B/P (MAP) Pulse Ox O2 Delivery O2 Flow Rate FiO2 01/14/17 08:33 54 01/14/17 08:00 97.3 61 17 117/60 97 Room Air 01/14/17 07:50 Nasal Cannula 2.0 28 01/14/17 07:50 98 Nasal Cannula 2.0 28 01/14/17 05:58 97.6 01/14/17 04:00 97.6 67 18 121/67 97 Room Air 01/13/17 23:56 97.2 66 20 125/56 96 Nasal Cannula 2.0 01/13/17 20:20 56 18 102/56 01/13/17 20:00 97.5 58 18 99/56 98 Nasal Cannula 2.0 01/13/17 19:29 99 Nasal Cannula 2.0 28 01/13/17 19:29 Nasal Cannula 2.0 28 01/13/17 15:52 97.6 56 18 145/56 100 Nasal Cannula 3.0 01/13/17 11:44 98.4 60 18 132/62 100 Room Air Height (Feet): 5 Height (Inches): 7.00 Weight (Pounds): 126 General Appearance: WD/WN, no apparent distress, alert Cardiovascular: normal rate Respiratory/Chest: normal breath sounds, no respiratory distress Abdominal Exam: normal bowel sounds, non tender, soft Shruti Roberson NCoco Jan 14, 2017 10:25
--- NOTE | 2017-01-14 11:11 | Wound Nurse Progress Note ---
Wound RN Progress Note Wound Consult reassessment/recommendation #1 Extensive scattered stage II pressure ulcer on Sacrococcygeal, left and right buttock.- no further deterioration, resolved. sacrococcygeal stage 2 resolved. surrounding skin remains present with scar tissue and redness.- cleanse with soap and water , pat dry , apply calazime barrier cream leave open to air ,BID and PRN for skin management and prevention. #2 Left upper chest skin tear with partial thickness skin loss.-no further deterioration, -cleanse with normal saline ,pat dry , apply hydrogel to pink wound bed , apply alginate, cover with Bordered dressing ,DAILY and PRN if soiled/dislodged., continue current wound care as ordered.no further deterioration. #3 Mid lower back full thickness scar, resurfaced open wound-resolved. #4 Left trochanter intact full thickness scar tissue. -intact #5 tracheostomy site noted with two intact/clean sutures.-intact, dry #6 right lower back denuded skin from possible friction,self repositioning,- resolved. reminded patient of importance for repositioning,avoid shear, and offloading sacral area. patient repositioned on side to offload sacral area, but patient repositions self on back, at possible risk for further skin breakdown due to self repositioning on only back. -keep clean and dry, provide gentle perineal care. Recommendation -Encourage repositioning. -Local wound care per protocol -Offload both heels -Heel protector on both heels -Optimize nutrition -Keep clean and dry -Turn and reposition - Apply Low air loss mattress SPR mattress for wound and skin management. -Assess and f/u accordingly for any changes MARIA LUISA SERRA Jan 14, 2017 11:11
[2017-01-14 12:00] VITALS: BP 119/58
--- NOTE | 2017-01-14 12:24 | Infectious Diseases Prog Note ---
Assessment/Plan Assessment/Plan SOB, SP likely related to malpositioned trach +/- ; resolved Possible PNA, s/p Rx , SCx: GNR x 2 m/l colonizer ; resolved -CXR: Interstitial disease nonspecific. CHF, pneumonitis not excluded -spu cx ordered, not collected Leukocytosis- ?reactive vs 2ry to PNA vs combination- resolved -Bcx Neg -u/a WBC 2-4 Diarrhea- neg cdiff COPD and chronic tracheostomy- s/p trach decanulized 12/21 HIV Neg CHF, spinal fusion, DVT, s/p hip surgery, chronic pain, group home resident No ABX allergies Full Code Plan: -Continue to monitor off abx -s/p 5d IV Ceftriaxone/azithromycin 12/21 -s/p 1 d IV Vanco/Cefpime 12/18 -s/p 1d Levaquin 12/17 -f/u Hep C ab (per patient request) -Monitor CBC/BMP, temperatures -Aspiration precautions. Subjective Allergies: Coded Allergies: ACETAMINOPHEN (Unverified Allergy, Unknown, 12/17/16) CODEINE (Unverified Allergy, Unknown, 03/04/14) IODINE (Unverified Allergy, Unknown, 12/17/16) Subjective afebrile, no leukocytosis off abx Objective Vital Signs Last 24 Hour Vital Signs Date Time Temp Pulse Resp B/P (MAP) Pulse Ox O2 Delivery O2 Flow Rate FiO2 01/14/17 08:33 54 01/14/17 08:00 97.3 61 17 117/60 97 Room Air 01/14/17 07:50 Nasal Cannula 2.0 28 01/14/17 07:50 98 Nasal Cannula 2.0 28 01/14/17 05:58 97.6 01/14/17 04:00 97.6 67 18 121/67 97 Room Air 01/13/17 23:56 97.2 66 20 125/56 96 Nasal Cannula 2.0 01/13/17 20:20 56 18 102/56 01/13/17 20:00 97.5 58 18 99/56 98 Nasal Cannula 2.0 01/13/17 19:29 99 Nasal Cannula 2.0 28 01/13/17 19:29 Nasal Cannula 2.0 28 01/13/17 15:52 97.6 56 18 145/56 100 Nasal Cannula 3.0 Height (Feet): 5 Height (Inches): 7.00 Weight (Pounds): 126 Objective General Appearance: WD/WN, frail Lines, tubes and drains: peripheral, gtube HEENT: normocephalic, atraumatic; trach decanulized Neck: non-tender, normal alignment Respiratory/Chest: chest wall non-tender, lungs clear Cardiovascular/Chest: normal peripheral pulses, normal rate Abdomen: normal bowel sounds, non tender Genitourinary/Rectal: normal genital exam, normal rectal exam Extremities: normal range of motion, non-tender Current Medications Medications (Trade) Dose Ordered Sig/Sandra Route PRN Reason Start Time Stop Time Status Last Admin Dose Admin Al Hydroxide/Mg Hydroxide (Mylanta II) 30 ml Q6H PRN GT dyspepsia 12/22/16 12:00 01/16/17 11:59 12/27/16 21:50 Dextrose (Dextrose 50%) STAT PRN IV Hypoglycemia 12/22/16 12:00 01/19/17 11:59 Digoxin (Lanoxin) 0.25 mg DAILY GT 12/23/16 09:00 01/17/17 09:29 01/12/17 08:44 Docusate Sodium (Colace) 200 mg TIDPRN PRN ORAL Constipation 2nd line agent 01/03/17 20:00 02/02/17 19:59 Gabapentin (Neurontin) 300 mg TID GT 12/22/16 13:00 01/18/17 13:59 01/14/17 08:32 Heparin Sodium (Porcine) (Heparin 5000 units/ml) 5,000 units EVERY 12 HOURS SUBQ 12/22/16 21:00 01/17/17 08:59 01/13/17 20:21 Hydroxyzine HCl (Atarax) 25 mg BID GT 12/22/16 18:00 01/17/17 08:59 01/14/17 08:30 Ketorolac Tromethamine (Toradol 30mg) 15 mg Q6H PRN IM Moderate Pain (Pain Scale 4-6) 01/11/17 15:00 01/16/17 14:59 01/14/17 05:28 Levothyroxine Sodium (Synthroid) 88 mcg ACBREAKFAST GT 12/29/16 06:30 01/28/17 06:29 01/14/17 05:51 Mirtazapine (Remeron) 30 mg BEDTIME GT 01/08/17 21:00 02/07/17 20:59 01/13/17 20:20 Nitroglycerin (Ntg) 0.4 mg Q5MIN X 3 DOSES PRN SL Prn Chest Pain 12/22/16 12:00 01/18/17 17:19 Ondansetron HCl (Zofran) 4 mg Q6H PRN IVP Nausea & Vomiting 12/22/16 12:00 01/16/17 11:59 Polyethylene Glycol (Miralax) 17 gm DAILYPRN PRN ORAL Constipation 12/22/16 12:00 01/19/17 11:59 Sennosides (Senokot) 8.6 mg DAILY ORAL 01/03/17 21:00 02/02/17 20:59 01/13/17 09:21 Lisa Cartagena M.D. Jan 14, 2017 12:24
[2017-01-14 16:01] VITALS: BP 135/60
[2017-01-14 19:13] VITALS: BP 127/59
--- NOTE | 2017-01-14 21:58 | General Progress Note ---
Assessment/Plan Status: stable, progressing Assessment/Plan mdd cont current meds provided ro/st Subjective Neurologic/Psychiatric: Reports: anxiety, depressed, emotional problems Allergies: Coded Allergies: ACETAMINOPHEN (Unverified Allergy, Unknown, 12/17/16) CODEINE (Unverified Allergy, Unknown, 03/04/14) IODINE (Unverified Allergy, Unknown, 12/17/16) Subjective pt was tearful she has low tolerance for stress Objective Last 24 Hour Vital Signs Date Time Temp Pulse Resp B/P (MAP) Pulse Ox O2 Delivery O2 Flow Rate FiO2 01/14/17 20:27 97.7 01/14/17 19:13 97.7 60 20 127/59 98 Room Air 01/14/17 16:01 97.6 59 20 135/60 100 Nasal Cannula 2.0 01/14/17 12:00 97.3 61 18 119/58 97 Room Air 01/14/17 08:33 54 01/14/17 08:00 97.3 61 17 117/60 97 Room Air 01/14/17 07:50 Nasal Cannula 2.0 28 01/14/17 07:50 98 Nasal Cannula 2.0 28 01/14/17 04:00 97.6 67 18 121/67 97 Room Air 01/13/17 23:56 97.2 66 20 125/56 96 Nasal Cannula 2.0 Intake and Output 01/14/17 01/15/17 19:00 07:00 Intake Total 580 ml Balance 580 ml Intake Oral 580 ml # Voids 1 # Bowel Movements 3 Height (Feet): 5 Height (Inches): 7.00 Weight (Pounds): 126 General Appearance: no apparent distress, alert Neurologic: alert, oriented x 3, responsive, depressed affect Kallie Fernandez M.D. Jan 14, 2017 21:58
--- NOTE | 2017-01-14 22:16 | Pulmonology Progress Note ---
Assessment/Plan Problems: (1) Purulent bronchitis (2) Acute and chronic respiratory failure ([id number]) (3) Tracheostomy malfunction (4) COPD (chronic obstructive pulmonary disease) (5) Interstitial lung disease (6) Diabetes mellitus (7) Hypothyroidism Assessment/Plan symptomatic treatment tolerating off trach, respiratory treatment check sputum psych evaluation all notes reviewed awaiting discharge Subjective ROS Limited/Unobtainable: No Constitutional: Reports: no symptoms HEENT: Repors: no symptoms Respiratory: Reports: no symptoms Allergies: Coded Allergies: ACETAMINOPHEN (Unverified Allergy, Unknown, 12/17/16) CODEINE (Unverified Allergy, Unknown, 03/04/14) IODINE (Unverified Allergy, Unknown, 12/17/16) Objective Last 24 Hour Vital Signs Date Time Temp Pulse Resp B/P (MAP) Pulse Ox O2 Delivery O2 Flow Rate FiO2 01/14/17 20:27 97.7 01/14/17 19:13 97.7 60 20 127/59 98 Room Air 01/14/17 16:01 97.6 59 20 135/60 100 Nasal Cannula 2.0 01/14/17 12:00 97.3 61 18 119/58 97 Room Air 01/14/17 08:33 54 01/14/17 08:00 97.3 61 17 117/60 97 Room Air 01/14/17 07:50 Nasal Cannula 2.0 28 01/14/17 07:50 98 Nasal Cannula 2.0 28 01/14/17 04:00 97.6 67 18 121/67 97 Room Air 01/13/17 23:56 97.2 66 20 125/56 96 Nasal Cannula 2.0 Intake and Output 01/14/17 01/15/17 19:00 07:00 Intake Total 580 ml Balance 580 ml Intake Oral 580 ml # Voids 1 # Bowel Movements 3 Objective General Appearance: no acute distress, cachetic HEENT: normocephalic, atraumatic Respiratory/Chest: chest wall non-tender, lungs clear, normal breath sounds Cardiovascular: normal peripheral pulses, normal rate Abdomen: normal bowel sounds, soft, non tender Genitourinary: normal external genitalia Extremities: no cyanosis Skin: no rash Current Medications Medications (Trade) Dose Ordered Sig/Sandra Route PRN Reason Start Time Stop Time Status Last Admin Dose Admin Al Hydroxide/Mg Hydroxide (Mylanta II) 30 ml Q6H PRN GT dyspepsia 12/22/16 12:00 01/16/17 11:59 12/27/16 21:50 Dextrose (Dextrose 50%) STAT PRN IV Hypoglycemia 12/22/16 12:00 01/19/17 11:59 Digoxin (Lanoxin) 0.25 mg DAILY GT 12/23/16 09:00 01/17/17 09:29 01/12/17 08:44 Docusate Sodium (Colace) 200 mg TIDPRN PRN ORAL Constipation 2nd line agent 01/03/17 20:00 02/02/17 19:59 Gabapentin (Neurontin) 300 mg TID GT 12/22/16 13:00 01/18/17 13:59 01/14/17 17:26 Heparin Sodium (Porcine) (Heparin 5000 units/ml) 5,000 units EVERY 12 HOURS SUBQ 12/22/16 21:00 01/17/17 08:59 01/14/17 20:03 Hydroxyzine HCl (Atarax) 25 mg BID GT 12/22/16 18:00 01/17/17 08:59 01/14/17 17:27 Ketorolac Tromethamine (Toradol 30mg) 15 mg Q6H PRN IM Moderate Pain (Pain Scale 4-6) 01/11/17 15:00 01/16/17 14:59 01/14/17 19:57 Levothyroxine Sodium (Synthroid) 88 mcg ACBREAKFAST GT 12/29/16 06:30 01/28/17 06:29 01/14/17 05:51 Mirtazapine (Remeron) 30 mg BEDTIME GT 01/08/17 21:00 02/07/17 20:59 01/14/17 19:56 Nitroglycerin (Ntg) 0.4 mg Q5MIN X 3 DOSES PRN SL Prn Chest Pain 12/22/16 12:00 01/18/17 17:19 Ondansetron HCl (Zofran) 4 mg Q6H PRN IVP Nausea & Vomiting 12/22/16 12:00 01/16/17 11:59 Polyethylene Glycol (Miralax) 17 gm DAILYPRN PRN ORAL Constipation 12/22/16 12:00 01/19/17 11:59 Sennosides (Senokot) 8.6 mg DAILY ORAL 01/03/17 21:00 02/02/17 20:59 01/13/17 09:21 DEDRICK SOLANO Jan 14, 2017 22:16
[2017-01-14 23:27] VITALS: BP 144/76
[2017-01-15 04:00] VITALS: BP 143/70
[2017-01-15] MEDS: Ketorolac 30mg Inj IM PRN ×2 (04:17→11:27)
[2017-01-15 05:54] LABS: BASOPHILS % (AUTO) 2.2 % (0.0-2.0); HEMATOCRIT 37.3 % (37.0-47.0); HEMOGLOBIN 11.5 G/DL (12.0-16.0); LYMPHOCYTES % (AUTO) 32.4 % (20.0-45.0); MEAN CORPUSCULAR VOLUME 95 FL (80-99); MONOCYTES % (AUTO) 9.1 % (1.0-10.0); NEUTROPHILS % (AUTO) 48.3 % (45.0-75.0); PLATELET COUNT 338 K/UL (150-450); RED BLOOD COUNT 3.93 M/UL (4.20-5.40); RED CELL DISTRIBUTION WIDTH 14.8 % (11.6-14.8); WHITE BLOOD COUNT 9.2 K/UL (4.8-10.8)
[2017-01-15 06:38] LABS: ANION GAP 6 mmol/L (5-15); BLOOD UREA NITROGEN 17 mg/dL (7-18); CALCIUM 8.6 MG/DL (8.5-10.1); CARBON DIOXIDE 28 MMOL/L (21-32); CHLORIDE 111 MMOL/L (98-107); CREATININE 0.5 MG/DL (0.55-1.30); POTASSIUM 3.6 MMOL/L (3.5-5.1); SODIUM 145 MMOL/L (136-145)
[2017-01-15 08:15] VITALS: BP 116/64
[2017-01-15] MEDS: Sennosides 8.6mg ORAL SCH (09:30)
[2017-01-15] MEDS: Gabapentin 300 MG/6 ML Soln GT SCH ×2 (09:30→13:28)
[2017-01-15] MEDS: HydrOXYzine 25mg tab GT SCH (09:31)
[2017-01-15] MEDS: Heparin 5000 units/ml inj SUBQ SCH (09:33)
[2017-01-15 12:04] VITALS: BP 118/71
--- NOTE | 2017-01-15 12:51 | GI Progress Note ---
Assessment/Plan Problems: (1) PEG (percutaneous endoscopic gastrostomy) adjustment/replacement/removal ICD Codes: Z43.1 - Encounter for attention to gastrostomy SNOMED: 074450702, 322796683 (2) Chronic pain ICD Codes: G89.29 - Other chronic pain SNOMED: 84757618 (3) Diabetes mellitus ICD Codes: E11.9 - Type 2 diabetes mellitus without complications SNOMED: 08794716 (4) Hypothyroidism ICD Codes: E03.9 - Hypothyroidism, unspecified SNOMED: 88237898 Status: stable Status Narrative Discussed with Dr. Mesa. Assessment/Plan okay for DC per GI standpoint cdiff negative s/p GT removal GT site care daily/prn soft diet, push PO fu labs fu Hep C antibody Subjective Subjective limited tolerating diet Objective Last 24 Hour Vital Signs Date Time Temp Pulse Resp B/P (MAP) Pulse Ox O2 Delivery O2 Flow Rate FiO2 01/15/17 12:04 97.6 57 18 118/71 100 Nasal Cannula 2.0 01/15/17 09:31 64 01/15/17 08:15 97.3 64 18 116/64 100 Nasal Cannula 3.0 01/15/17 07:47 95 Nasal Cannula 2.0 28 01/15/17 07:47 Nasal Cannula 2.0 28 01/15/17 04:47 96.0 01/15/17 04:00 96.8 66 20 143/70 100 Room Air 01/14/17 23:27 96.0 82 20 144/76 100 Room Air 01/14/17 19:20 Nasal Cannula 2.0 28 01/14/17 19:20 97 Nasal Cannula 2.0 28 01/14/17 19:13 97.7 60 20 127/59 98 Room Air 01/14/17 16:01 97.6 59 20 135/60 100 Nasal Cannula 2.0 Laboratory Tests Test 01/15/17 04:40 White Blood Count 9.2 K/UL (4.8-10.8) Red Blood Count 3.93 M/UL (4.20-5.40) L Hemoglobin 11.5 G/DL (12.0-16.0) L Hematocrit 37.3 % (37.0-47.0) Mean Corpuscular Volume 95 FL (80-99) Mean Corpuscular Hemoglobin 29.2 PG (27.0-31.0) Mean Corpuscular Hemoglobin Concent 30.8 G/DL (32.0-36.0) L Red Cell Distribution Width 14.8 % (11.6-14.8) Platelet Count 338 K/UL (150-450) Mean Platelet Volume 7.3 FL (6.5-10.1) Neutrophils (%) (Auto) 48.3 % (45.0-75.0) Lymphocytes (%) (Auto) 32.4 % (20.0-45.0) Monocytes (%) (Auto) 9.1 % (1.0-10.0) Eosinophils (%) (Auto) 8.0 % (0.0-3.0) H Basophils (%) (Auto) 2.2 % (0.0-2.0) H Sodium Level 145 MMOL/L (136-145) Potassium Level 3.6 MMOL/L (3.5-5.1) Chloride Level 111 MMOL/L (98-107) H Carbon Dioxide Level 28 MMOL/L (21-32) Anion Gap 6 mmol/L (5-15) Blood Urea Nitrogen 17 mg/dL (7-18) Creatinine 0.5 MG/DL (0.55-1.30) L Estimat Glomerular Filtration Rate > 60 mL/min (>60) Glucose Level 88 MG/DL (74-106) Calcium Level 8.6 MG/DL (8.5-10.1) Height (Feet): 5 Height (Inches): 7.00 Weight (Pounds): 126 General Appearance: no apparent distress, alert, thin Cardiovascular: normal rate Respiratory/Chest: normal breath sounds, no respiratory distress Abdominal Exam: normal bowel sounds, non tender, soft, GT site - removal Extremities: normal range of motion, non-tender Shruti Roberson N.P. Jan 15, 2017 12:51
--- NOTE | 2017-01-15 12:51 | GI Progress Note ---
Assessment/Plan Problems: (1) PEG (percutaneous endoscopic gastrostomy) adjustment/replacement/removal ICD Codes: Z43.1 - Encounter for attention to gastrostomy SNOMED: 520174364, 312846783 (2) Chronic pain ICD Codes: G89.29 - Other chronic pain SNOMED: 25709323 (3) Diabetes mellitus ICD Codes: E11.9 - Type 2 diabetes mellitus without complications SNOMED: 75241257 (4) Hypothyroidism ICD Codes: E03.9 - Hypothyroidism, unspecified SNOMED: 64645363 Status: stable Status Narrative Discussed with Dr. Mesa. Assessment/Plan okay for DC per GI standpoint cdiff negative s/p GT removal GT site care daily/prn soft diet, push PO fu labs fu Hep C antibody Subjective Subjective limited tolerating diet Objective Last 24 Hour Vital Signs Date Time Temp Pulse Resp B/P (MAP) Pulse Ox O2 Delivery O2 Flow Rate FiO2 01/15/17 12:04 97.6 57 18 118/71 100 Nasal Cannula 2.0 01/15/17 09:31 64 01/15/17 08:15 97.3 64 18 116/64 100 Nasal Cannula 3.0 01/15/17 07:47 95 Nasal Cannula 2.0 28 01/15/17 07:47 Nasal Cannula 2.0 28 01/15/17 04:47 96.0 01/15/17 04:00 96.8 66 20 143/70 100 Room Air 01/14/17 23:27 96.0 82 20 144/76 100 Room Air 01/14/17 19:20 Nasal Cannula 2.0 28 01/14/17 19:20 97 Nasal Cannula 2.0 28 01/14/17 19:13 97.7 60 20 127/59 98 Room Air 01/14/17 16:01 97.6 59 20 135/60 100 Nasal Cannula 2.0 Laboratory Tests Test 01/15/17 04:40 White Blood Count 9.2 K/UL (4.8-10.8) Red Blood Count 3.93 M/UL (4.20-5.40) L Hemoglobin 11.5 G/DL (12.0-16.0) L Hematocrit 37.3 % (37.0-47.0) Mean Corpuscular Volume 95 FL (80-99) Mean Corpuscular Hemoglobin 29.2 PG (27.0-31.0) Mean Corpuscular Hemoglobin Concent 30.8 G/DL (32.0-36.0) L Red Cell Distribution Width 14.8 % (11.6-14.8) Platelet Count 338 K/UL (150-450) Mean Platelet Volume 7.3 FL (6.5-10.1) Neutrophils (%) (Auto) 48.3 % (45.0-75.0) Lymphocytes (%) (Auto) 32.4 % (20.0-45.0) Monocytes (%) (Auto) 9.1 % (1.0-10.0) Eosinophils (%) (Auto) 8.0 % (0.0-3.0) H Basophils (%) (Auto) 2.2 % (0.0-2.0) H Sodium Level 145 MMOL/L (136-145) Potassium Level 3.6 MMOL/L (3.5-5.1) Chloride Level 111 MMOL/L (98-107) H Carbon Dioxide Level 28 MMOL/L (21-32) Anion Gap 6 mmol/L (5-15) Blood Urea Nitrogen 17 mg/dL (7-18) Creatinine 0.5 MG/DL (0.55-1.30) L Estimat Glomerular Filtration Rate > 60 mL/min (>60) Glucose Level 88 MG/DL (74-106) Calcium Level 8.6 MG/DL (8.5-10.1) Height (Feet): 5 Height (Inches): 7.00 Weight (Pounds): 126 General Appearance: no apparent distress, alert, thin Cardiovascular: normal rate Respiratory/Chest: normal breath sounds, no respiratory distress Abdominal Exam: normal bowel sounds, non tender, soft, GT site - removal Extremities: normal range of motion, non-tender Shruti Roberson N.P. Jan 15, 2017 12:51
--- NOTE | 2017-01-15 12:51 | GI Progress Note ---
Assessment/Plan Problems: (1) PEG (percutaneous endoscopic gastrostomy) adjustment/replacement/removal ICD Codes: Z43.1 - Encounter for attention to gastrostomy SNOMED: 704806620, 015716304 (2) Chronic pain ICD Codes: G89.29 - Other chronic pain SNOMED: 17973469 (3) Diabetes mellitus ICD Codes: E11.9 - Type 2 diabetes mellitus without complications SNOMED: 89904205 (4) Hypothyroidism ICD Codes: E03.9 - Hypothyroidism, unspecified SNOMED: 30803990 Status: stable Status Narrative Discussed with Dr. Mesa. Assessment/Plan okay for DC per GI standpoint cdiff negative s/p GT removal GT site care daily/prn soft diet, push PO fu labs fu Hep C antibody Subjective Subjective limited tolerating diet Objective Last 24 Hour Vital Signs Date Time Temp Pulse Resp B/P (MAP) Pulse Ox O2 Delivery O2 Flow Rate FiO2 01/15/17 12:04 97.6 57 18 118/71 100 Nasal Cannula 2.0 01/15/17 09:31 64 01/15/17 08:15 97.3 64 18 116/64 100 Nasal Cannula 3.0 01/15/17 07:47 95 Nasal Cannula 2.0 28 01/15/17 07:47 Nasal Cannula 2.0 28 01/15/17 04:47 96.0 01/15/17 04:00 96.8 66 20 143/70 100 Room Air 01/14/17 23:27 96.0 82 20 144/76 100 Room Air 01/14/17 19:20 Nasal Cannula 2.0 28 01/14/17 19:20 97 Nasal Cannula 2.0 28 01/14/17 19:13 97.7 60 20 127/59 98 Room Air 01/14/17 16:01 97.6 59 20 135/60 100 Nasal Cannula 2.0 Laboratory Tests Test 01/15/17 04:40 White Blood Count 9.2 K/UL (4.8-10.8) Red Blood Count 3.93 M/UL (4.20-5.40) L Hemoglobin 11.5 G/DL (12.0-16.0) L Hematocrit 37.3 % (37.0-47.0) Mean Corpuscular Volume 95 FL (80-99) Mean Corpuscular Hemoglobin 29.2 PG (27.0-31.0) Mean Corpuscular Hemoglobin Concent 30.8 G/DL (32.0-36.0) L Red Cell Distribution Width 14.8 % (11.6-14.8) Platelet Count 338 K/UL (150-450) Mean Platelet Volume 7.3 FL (6.5-10.1) Neutrophils (%) (Auto) 48.3 % (45.0-75.0) Lymphocytes (%) (Auto) 32.4 % (20.0-45.0) Monocytes (%) (Auto) 9.1 % (1.0-10.0) Eosinophils (%) (Auto) 8.0 % (0.0-3.0) H Basophils (%) (Auto) 2.2 % (0.0-2.0) H Sodium Level 145 MMOL/L (136-145) Potassium Level 3.6 MMOL/L (3.5-5.1) Chloride Level 111 MMOL/L (98-107) H Carbon Dioxide Level 28 MMOL/L (21-32) Anion Gap 6 mmol/L (5-15) Blood Urea Nitrogen 17 mg/dL (7-18) Creatinine 0.5 MG/DL (0.55-1.30) L Estimat Glomerular Filtration Rate > 60 mL/min (>60) Glucose Level 88 MG/DL (74-106) Calcium Level 8.6 MG/DL (8.5-10.1) Height (Feet): 5 Height (Inches): 7.00 Weight (Pounds): 126 General Appearance: no apparent distress, alert, thin Cardiovascular: normal rate Respiratory/Chest: normal breath sounds, no respiratory distress Abdominal Exam: normal bowel sounds, non tender, soft, GT site - removal Extremities: normal range of motion, non-tender Shruti Roberson N.P. Jan 15, 2017 12:51
--- NOTE | 2017-01-15 13:21 | Infectious Diseases Prog Note ---
Assessment/Plan Assessment/Plan Assessment: SOB, SP likely related to malpositioned trach +/- Possible PNA, s/p Rx , SCx: GNR x 2 m/l colonizer -CXR: Interstitial disease nonspecific. CHF, pneumonitis not excluded -spu cx ordered, not collected Leukocytosis- ?reactive vs 2ry to PNA vs combination- resolved -Bcx Neg -u/a WBC 2-4 Diarrhea- neg cdiff COPD and chronic tracheostomy- s/p trach decanulized 12/21 HIV and Hep C Neg CHF, spinal fusion, DVT, s/p hip surgery, chronic pain, residential resident No ABX allergies Full Code Plan: -Continue to monitor off abx -s/p 5d IV Ceftriaxone/azithromycin 12/21 -s/p 1 d IV Vanco/Cefpime 12/18 -s/p 1d Levaquin 12/17 Cxray : -Monitor CBC/BMP, temperatures -Aspiration precautions. Subjective Constitutional: Denies: no symptoms, fever, chills, fatigue, anorexia, drenching sweats, other Allergies: Coded Allergies: ACETAMINOPHEN (Unverified Allergy, Unknown, 12/17/16) CODEINE (Unverified Allergy, Unknown, 03/04/14) IODINE (Unverified Allergy, Unknown, 12/17/16) Objective Vital Signs Last 24 Hour Vital Signs Date Time Temp Pulse Resp B/P (MAP) Pulse Ox O2 Delivery O2 Flow Rate FiO2 01/15/17 12:04 97.6 57 18 118/71 100 Nasal Cannula 2.0 01/15/17 09:31 64 01/15/17 08:15 97.3 64 18 116/64 100 Nasal Cannula 3.0 01/15/17 07:47 95 Nasal Cannula 2.0 28 01/15/17 07:47 Nasal Cannula 2.0 28 01/15/17 04:47 96.0 01/15/17 04:00 96.8 66 20 143/70 100 Room Air 01/14/17 23:27 96.0 82 20 144/76 100 Room Air 01/14/17 19:20 Nasal Cannula 2.0 28 01/14/17 19:20 97 Nasal Cannula 2.0 28 01/14/17 19:13 97.7 60 20 127/59 98 Room Air 01/14/17 16:01 97.6 59 20 135/60 100 Nasal Cannula 2.0 Height (Feet): 5 Height (Inches): 7.00 Weight (Pounds): 126 Respiratory/Chest: no respiratory distress Cardiovascular: regular rhythm Abdomen: no organomegaly, no scars Laboratory Tests Test 01/15/17 04:40 White Blood Count 9.2 K/UL (4.8-10.8) Red Blood Count 3.93 M/UL (4.20-5.40) L Hemoglobin 11.5 G/DL (12.0-16.0) L Hematocrit 37.3 % (37.0-47.0) Mean Corpuscular Volume 95 FL (80-99) Mean Corpuscular Hemoglobin 29.2 PG (27.0-31.0) Mean Corpuscular Hemoglobin Concent 30.8 G/DL (32.0-36.0) L Red Cell Distribution Width 14.8 % (11.6-14.8) Platelet Count 338 K/UL (150-450) Mean Platelet Volume 7.3 FL (6.5-10.1) Neutrophils (%) (Auto) 48.3 % (45.0-75.0) Lymphocytes (%) (Auto) 32.4 % (20.0-45.0) Monocytes (%) (Auto) 9.1 % (1.0-10.0) Eosinophils (%) (Auto) 8.0 % (0.0-3.0) H Basophils (%) (Auto) 2.2 % (0.0-2.0) H Sodium Level 145 MMOL/L (136-145) Potassium Level 3.6 MMOL/L (3.5-5.1) Chloride Level 111 MMOL/L (98-107) H Carbon Dioxide Level 28 MMOL/L (21-32) Anion Gap 6 mmol/L (5-15) Blood Urea Nitrogen 17 mg/dL (7-18) Creatinine 0.5 MG/DL (0.55-1.30) L Estimat Glomerular Filtration Rate > 60 mL/min (>60) Glucose Level 88 MG/DL (74-106) Calcium Level 8.6 MG/DL (8.5-10.1) Current Medications Medications (Trade) Dose Ordered Sig/Sandra Route PRN Reason Start Time Stop Time Status Last Admin Dose Admin Al Hydroxide/Mg Hydroxide (Mylanta II) 30 ml Q6H PRN GT dyspepsia 12/22/16 12:00 01/16/17 11:59 12/27/16 21:50 Dextrose (Dextrose 50%) STAT PRN IV Hypoglycemia 12/22/16 12:00 01/19/17 11:59 Digoxin (Lanoxin) 0.25 mg DAILY GT 12/23/16 09:00 01/17/17 09:29 01/15/17 09:31 Docusate Sodium (Colace) 200 mg TIDPRN PRN ORAL Constipation 2nd line agent 01/03/17 20:00 02/02/17 19:59 Gabapentin (Neurontin) 300 mg TID GT 12/22/16 13:00 01/18/17 13:59 01/15/17 09:30 Heparin Sodium (Porcine) (Heparin 5000 units/ml) 5,000 units EVERY 12 HOURS SUBQ 12/22/16 21:00 01/17/17 08:59 01/15/17 09:33 Hydroxyzine HCl (Atarax) 25 mg BID GT 12/22/16 18:00 01/17/17 08:59 01/15/17 09:31 Ketorolac Tromethamine (Toradol 30mg) 15 mg Q6H PRN IM Moderate Pain (Pain Scale 4-6) 01/11/17 15:00 01/16/17 14:59 01/15/17 11:27 Levothyroxine Sodium (Synthroid) 88 mcg ACBREAKFAST GT 12/29/16 06:30 01/28/17 06:29 01/15/17 04:17 Mirtazapine (Remeron) 30 mg BEDTIME GT 01/08/17 21:00 02/07/17 20:59 01/14/17 19:56 Nitroglycerin (Ntg) 0.4 mg Q5MIN X 3 DOSES PRN SL Prn Chest Pain 12/22/16 12:00 01/18/17 17:19 Ondansetron HCl (Zofran) 4 mg Q6H PRN IVP Nausea & Vomiting 12/22/16 12:00 01/16/17 11:59 Polyethylene Glycol (Miralax) 17 gm DAILYPRN PRN ORAL Constipation 12/22/16 12:00 01/19/17 11:59 Sennosides (Senokot) 8.6 mg DAILY ORAL 01/03/17 21:00 02/02/17 20:59 01/15/17 09:30 JOSEPH PRYOR M.D. Jan 15, 2017 13:21
--- NOTE | 2017-01-15 13:39 | General Progress Note ---
Assessment/Plan Status: stable, progressing Assessment/Plan mdd cont current meds provided ro/st Subjective Neurologic/Psychiatric: Reports: anxiety, depressed, emotional problems Allergies: Coded Allergies: ACETAMINOPHEN (Unverified Allergy, Unknown, 12/17/16) CODEINE (Unverified Allergy, Unknown, 03/04/14) IODINE (Unverified Allergy, Unknown, 12/17/16) Subjective pt was tearful she has low tolerance for stress Objective Last 24 Hour Vital Signs Date Time Temp Pulse Resp B/P (MAP) Pulse Ox O2 Delivery O2 Flow Rate FiO2 01/15/17 12:04 97.6 57 18 118/71 100 Nasal Cannula 2.0 01/15/17 09:31 64 01/15/17 08:15 97.3 64 18 116/64 100 Nasal Cannula 3.0 01/15/17 07:47 95 Nasal Cannula 2.0 28 01/15/17 07:47 Nasal Cannula 2.0 28 01/15/17 04:47 96.0 01/15/17 04:00 96.8 66 20 143/70 100 Room Air 01/14/17 23:27 96.0 82 20 144/76 100 Room Air 01/14/17 19:20 Nasal Cannula 2.0 28 01/14/17 19:20 97 Nasal Cannula 2.0 28 01/14/17 19:13 97.7 60 20 127/59 98 Room Air 01/14/17 16:01 97.6 59 20 135/60 100 Nasal Cannula 2.0 Laboratory Tests 01/15/17 04:40: White Blood Count 9.2, Red Blood Count 3.93L, Hemoglobin 11.5L, Hematocrit 37.3 , Mean Corpuscular Volume 95, Mean Corpuscular Hemoglobin 29.2, Mean Corpuscular Hemoglobin Concent 30.8L, Red Cell Distribution Width 14.8, Platelet Count 338, Mean Platelet Volume 7.3, Neutrophils (%) (Auto) 48.3, Lymphocytes (%) (Auto) 32.4, Monocytes (%) (Auto) 9.1, Eosinophils (%) (Auto) 8.0H, Basophils (%) (Auto) 2.2H, Sodium Level 145, Potassium Level 3.6, Chloride Level 111H, Carbon Dioxide Level 28, Anion Gap 6, Blood Urea Nitrogen 17, Creatinine 0.5L, Estimat Glomerular Filtration Rate > 60, Glucose Level 88, Calcium Level 8.6 Height (Feet): 5 Height (Inches): 7.00 Weight (Pounds): 126 General Appearance: no apparent distress, alert Neurologic: alert, oriented x 3, responsive, depressed affect Kallie Fernandez M.D. Jan 15, 2017 13:39
--- NOTE | 2017-01-15 13:59 | Pulmonology Progress Note ---
Assessment/Plan Problems: (1) Purulent bronchitis (2) Acute and chronic respiratory failure ([id number]) (3) Tracheostomy malfunction (4) COPD (chronic obstructive pulmonary disease) (5) Interstitial lung disease (6) Diabetes mellitus (7) Hypothyroidism Assessment/Plan symptomatic treatment tolerating off trach, respiratory treatment check sputum psych evaluation all notes reviewed awaiting discharge Subjective ROS Limited/Unobtainable: No Constitutional: Reports: no symptoms HEENT: Repors: no symptoms Respiratory: Reports: no symptoms Allergies: Coded Allergies: ACETAMINOPHEN (Unverified Allergy, Unknown, 12/17/16) CODEINE (Unverified Allergy, Unknown, 03/04/14) IODINE (Unverified Allergy, Unknown, 12/17/16) Objective Last 24 Hour Vital Signs Date Time Temp Pulse Resp B/P (MAP) Pulse Ox O2 Delivery O2 Flow Rate FiO2 01/15/17 12:04 97.6 57 18 118/71 100 Nasal Cannula 2.0 01/15/17 09:31 64 01/15/17 08:15 97.3 64 18 116/64 100 Nasal Cannula 3.0 01/15/17 07:47 95 Nasal Cannula 2.0 28 01/15/17 07:47 Nasal Cannula 2.0 28 01/15/17 04:47 96.0 01/15/17 04:00 96.8 66 20 143/70 100 Room Air 01/14/17 23:27 96.0 82 20 144/76 100 Room Air 01/14/17 19:20 Nasal Cannula 2.0 28 01/14/17 19:20 97 Nasal Cannula 2.0 28 01/14/17 19:13 97.7 60 20 127/59 98 Room Air 01/14/17 16:01 97.6 59 20 135/60 100 Nasal Cannula 2.0 Objective General Appearance: no acute distress, cachetic HEENT: normocephalic, atraumatic Respiratory/Chest: chest wall non-tender, lungs clear, normal breath sounds Cardiovascular: normal peripheral pulses, normal rate Abdomen: normal bowel sounds, soft, non tender Genitourinary: normal external genitalia Extremities: no cyanosis Skin: no rash Laboratory Tests 01/15/17 04:40: White Blood Count 9.2, Red Blood Count 3.93L, Hemoglobin 11.5L, Hematocrit 37.3 , Mean Corpuscular Volume 95, Mean Corpuscular Hemoglobin 29.2, Mean Corpuscular Hemoglobin Concent 30.8L, Red Cell Distribution Width 14.8, Platelet Count 338, Mean Platelet Volume 7.3, Neutrophils (%) (Auto) 48.3, Lymphocytes (%) (Auto) 32.4, Monocytes (%) (Auto) 9.1, Eosinophils (%) (Auto) 8.0H, Basophils (%) (Auto) 2.2H, Sodium Level 145, Potassium Level 3.6, Chloride Level 111H, Carbon Dioxide Level 28, Anion Gap 6, Blood Urea Nitrogen 17, Creatinine 0.5L, Estimat Glomerular Filtration Rate > 60, Glucose Level 88, Calcium Level 8.6 Current Medications Medications (Trade) Dose Ordered Sig/Sandra Route PRN Reason Start Time Stop Time Status Last Admin Dose Admin Al Hydroxide/Mg Hydroxide (Mylanta II) 30 ml Q6H PRN GT dyspepsia 12/22/16 12:00 01/16/17 11:59 12/27/16 21:50 Dextrose (Dextrose 50%) STAT PRN IV Hypoglycemia 12/22/16 12:00 01/19/17 11:59 Digoxin (Lanoxin) 0.25 mg DAILY GT 12/23/16 09:00 01/17/17 09:29 01/15/17 09:31 Docusate Sodium (Colace) 200 mg TIDPRN PRN ORAL Constipation 2nd line agent 01/03/17 20:00 02/02/17 19:59 Gabapentin (Neurontin) 300 mg TID GT 12/22/16 13:00 01/18/17 13:59 01/15/17 13:28 Heparin Sodium (Porcine) (Heparin 5000 units/ml) 5,000 units EVERY 12 HOURS SUBQ 12/22/16 21:00 01/17/17 08:59 01/15/17 09:33 Hydroxyzine HCl (Atarax) 25 mg BID GT 12/22/16 18:00 01/17/17 08:59 01/15/17 09:31 Ketorolac Tromethamine (Toradol 30mg) 15 mg Q6H PRN IM Moderate Pain (Pain Scale 4-6) 01/11/17 15:00 01/16/17 14:59 01/15/17 11:27 Levothyroxine Sodium (Synthroid) 88 mcg ACBREAKFAST GT 12/29/16 06:30 01/28/17 06:29 01/15/17 04:17 Mirtazapine (Remeron) 30 mg BEDTIME GT 01/08/17 21:00 02/07/17 20:59 01/14/17 19:56 Nitroglycerin (Ntg) 0.4 mg Q5MIN X 3 DOSES PRN SL Prn Chest Pain 12/22/16 12:00 01/18/17 17:19 Ondansetron HCl (Zofran) 4 mg Q6H PRN IVP Nausea & Vomiting 12/22/16 12:00 01/16/17 11:59 Polyethylene Glycol (Miralax) 17 gm DAILYPRN PRN ORAL Constipation 12/22/16 12:00 01/19/17 11:59 Sennosides (Senokot) 8.6 mg DAILY ORAL 01/03/17 21:00 02/02/17 20:59 01/15/17 09:30 DEDRICK SOLANO Jan 15, 2017 13:59
[2017-01-15 16:00] VITALS: BP 127/75
--- NOTE | 2017-01-18 17:48 | Discharge Summary ---
Discharge Summary Hospital Course Date of Admission Dec 18, 2016 at 00:33 Date of Discharge Jan 15, 2017 at 16:00 Admitting Diagnosis COPD/ exacerbation. LIAT Blair is a 66 year old female who was admitted on Dec 18, 2016 at 00:33 for Chronic Obstructive Pulmonary Disease Exacerbation Hospital Course [id number] Discharge Discharge Disposition Patient was discharged to SNF/Subacute Facility(03) Discharge Diagnoses: Abimbola Hopson NP Jan 18, 2017 17:48
--- NOTE | 2017-01-18 17:48 | Discharge Summary ---
Discharge Summary Hospital Course Date of Admission Dec 18, 2016 at 00:33 Date of Discharge Jan 15, 2017 at 16:00 Admitting Diagnosis COPD/ exacerbation. LIAT Blair is a 66 year old female who was admitted on Dec 18, 2016 at 00:33 for Chronic Obstructive Pulmonary Disease Exacerbation Hospital Course [id number] Discharge Discharge Disposition Patient was discharged to SNF/Subacute Facility(03) Discharge Diagnoses: Abimbola Hopson NP Jan 18, 2017 17:48
--- NOTE | 2017-01-18 17:48 | Discharge Summary ---
Discharge Summary Hospital Course Date of Admission Dec 18, 2016 at 00:33 Date of Discharge Jan 15, 2017 at 16:00 Admitting Diagnosis COPD/ exacerbation. LIAT Blair is a 66 year old female who was admitted on Dec 18, 2016 at 00:33 for Chronic Obstructive Pulmonary Disease Exacerbation Hospital Course [id number] Discharge Discharge Disposition Patient was discharged to SNF/Subacute Facility(03) Discharge Diagnoses: Abimbola Hopson NP Jan 18, 2017 17:48
--- NOTE | 2017-01-19 01:00 | Discharge Summary 2 SIG ---
DATE OF ADMISSION: 12/18/2016 DATE OF DISCHARGE: 01/15/2017 CONSULTANTS: 1. Olivier Mesa M.D. 2. Kallie Fernandez M.D. 3. Pedro Flanagan M.D. 4. Lisa Cartagena M.D. 5. Scott Hdz M.D. 6. Chris Elias M.D. BRIEF HOSPITAL COURSE: The patient is a 66-year-old female with history of COPD on chronic tracheostomy, history of CHF, chronic pain, group home resident presented to ED complaining of chest pain and shortness of breath. Pain is located to the left chest area 10/10. On evaluation at ED, the patient was hypoxic, O2 saturation was 89%. Tracheostomy tube was assisted out and was repositioned, oxygenation improved. Chest x-ray done showed interstitial disease. She was started on IV vancomycin and cefepime, which was eventually transitioned to IV ceftriaxone and azithromycin. Blood culture did not isolate any growth. Sputum culture showed growth of Staphylococcus aureus and Pseudomonas. She was seen by surgical team. Tracheostomy was switched from an 8 to 6. There was no needed surgical intervention. Band-Aid was placed over the old tracheostomy site. She was given respiratory support and pulse ox was stable on nasal cannula. The patient stated she wants the G-tube out. Bedside swallow and video swallow done and recommended pureed diet with strict aspiration precaution. G-tube was then removed. She had elevated TSH level of 26. Levothyroxine was increased to 88 mcg and was recommended repeat TSH in 6 to 8 weeks. The patient had been on Actos. Hemoglobin A1c 6.8, Actos was discontinued. She came in with stage II pressure ulcer on the sacrococcygeal area and buttock area with a skin tear on the chest. She was given wound care. She was cleared for discharge and was accepted to prior nursing, however, the patient refused to go back to the same SNF. She appealed her discharge. [facility] held discharge order, however at that time, no bed was available. The patient was referred to multiple nursing homes and finally was accepted to [facility]. FINAL DIAGNOSES: 1. Acute on chronic respiratory failure. 2. Tracheostomy malfunction. 3. Acute purulent bronchitis. 4. Chronic obstructive pulmonary disease. 5. Hypothyroidism. 6. Diabetes mellitus. 7. Possible pneumonia. 8. Status post decannulation. 9. Dysphagia. 10. High aspiration risk. 11. Depression. 12. Decubitus pressure ulcer present on admission. 13. Major depressive disorder. 14. Protein-calorie malnutrition. DISPOSITION: The patient was discharged to SNF. DISCHARGE MEDICATIONS: Refer to medication list. Quincy Herrera M.D. I have been assigned to dictate discharge summary on this account and I was not involved in the patient's management. bAimbola Hopson N.P. DR: CHENTE JOB#: [id number] CC: BENJAMÍN
--- NOTE | 2017-01-19 01:00 | Discharge Summary 2 SIG ---
DATE OF ADMISSION: 12/18/2016 DATE OF DISCHARGE: 01/15/2017 CONSULTANTS: 1. Olivier Mesa M.D. 2. Kallie Fernandez M.D. 3. Pedro Flanagan M.D. 4. Lisa Cartagena M.D. 5. Scott Hdz M.D. 6. Chris Elias M.D. BRIEF HOSPITAL COURSE: The patient is a 66-year-old female with history of COPD on chronic tracheostomy, history of CHF, chronic pain, long-term resident presented to ED complaining of chest pain and shortness of breath. Pain is located to the left chest area 10/10. On evaluation at ED, the patient was hypoxic, O2 saturation was 89%. Tracheostomy tube was detention out and was repositioned, oxygenation improved. Chest x-ray done showed interstitial disease. She was started on IV vancomycin and cefepime, which was eventually transitioned to IV ceftriaxone and azithromycin. Blood culture did not isolate any growth. Sputum culture showed growth of Staphylococcus aureus and Pseudomonas. She was seen by surgical team. Tracheostomy was switched from an 8 to 6. There was no needed surgical intervention. Band-Aid was placed over the old tracheostomy site. She was given respiratory support and pulse ox was stable on nasal cannula. The patient stated she wants the G-tube out. Bedside swallow and video swallow done and recommended pureed diet with strict aspiration precaution. G-tube was then removed. She had elevated TSH level of 26. Levothyroxine was increased to 88 mcg and was recommended repeat TSH in 6 to 8 weeks. The patient had been on Actos. Hemoglobin A1c 6.8, Actos was discontinued. She came in with stage II pressure ulcer on the sacrococcygeal area and buttock area with a skin tear on the chest. She was given wound care. She was cleared for discharge and was accepted to prior nursing, however, the patient refused to go back to the same SNF. She appealed her discharge. [facility] held discharge order, however at that time, no bed was available. The patient was referred to multiple nursing homes and finally was accepted to [facility]. FINAL DIAGNOSES: 1. Acute on chronic respiratory failure. 2. Tracheostomy malfunction. 3. Acute purulent bronchitis. 4. Chronic obstructive pulmonary disease. 5. Hypothyroidism. 6. Diabetes mellitus. 7. Possible pneumonia. 8. Status post decannulation. 9. Dysphagia. 10. High aspiration risk. 11. Depression. 12. Decubitus pressure ulcer present on admission. 13. Major depressive disorder. 14. Protein-calorie malnutrition. DISPOSITION: The patient was discharged to SNF. DISCHARGE MEDICATIONS: Refer to medication list. Quincy Herrera M.D. I have been assigned to dictate discharge summary on this account and I was not involved in the patient's management. Abimbola Hopson N.P. DR: CHENTE JOB#: [id number] CC: BENJAMÍN
--- NOTE | 2017-01-19 01:00 | Discharge Summary 2 SIG ---
DATE OF ADMISSION: 12/18/2016 DATE OF DISCHARGE: 01/15/2017 CONSULTANTS: 1. Olivier Mesa M.D. 2. Kallie Fernandez M.D. 3. Pedro Flanagan M.D. 4. Lisa Cartagena M.D. 5. Scott Hdz M.D. 6. Chris Elias M.D. BRIEF HOSPITAL COURSE: The patient is a 66-year-old female with history of COPD on chronic tracheostomy, history of CHF, chronic pain, alf resident presented to ED complaining of chest pain and shortness of breath. Pain is located to the left chest area 10/10. On evaluation at ED, the patient was hypoxic, O2 saturation was 89%. Tracheostomy tube was residential out and was repositioned, oxygenation improved. Chest x-ray done showed interstitial disease. She was started on IV vancomycin and cefepime, which was eventually transitioned to IV ceftriaxone and azithromycin. Blood culture did not isolate any growth. Sputum culture showed growth of Staphylococcus aureus and Pseudomonas. She was seen by surgical team. Tracheostomy was switched from an 8 to 6. There was no needed surgical intervention. Band-Aid was placed over the old tracheostomy site. She was given respiratory support and pulse ox was stable on nasal cannula. The patient stated she wants the G-tube out. Bedside swallow and video swallow done and recommended pureed diet with strict aspiration precaution. G-tube was then removed. She had elevated TSH level of 26. Levothyroxine was increased to 88 mcg and was recommended repeat TSH in 6 to 8 weeks. The patient had been on Actos. Hemoglobin A1c 6.8, Actos was discontinued. She came in with stage II pressure ulcer on the sacrococcygeal area and buttock area with a skin tear on the chest. She was given wound care. She was cleared for discharge and was accepted to prior nursing, however, the patient refused to go back to the same SNF. She appealed her discharge. [facility] held discharge order, however at that time, no bed was available. The patient was referred to multiple nursing homes and finally was accepted to [facility]. FINAL DIAGNOSES: 1. Acute on chronic respiratory failure. 2. Tracheostomy malfunction. 3. Acute purulent bronchitis. 4. Chronic obstructive pulmonary disease. 5. Hypothyroidism. 6. Diabetes mellitus. 7. Possible pneumonia. 8. Status post decannulation. 9. Dysphagia. 10. High aspiration risk. 11. Depression. 12. Decubitus pressure ulcer present on admission. 13. Major depressive disorder. 14. Protein-calorie malnutrition. DISPOSITION: The patient was discharged to SNF. DISCHARGE MEDICATIONS: Refer to medication list. Quincy Herrera M.D. I have been assigned to dictate discharge summary on this account and I was not involved in the patient's management. Abimbola Hopson N.P. DR: CHENTE JOB#: [id number] CC: BENJAMÍN
== END 2017-01-15 16:00 | DRG 133 ==
LOC: EDBD 21:29 → EMR 21:35 → 2E 12-18 00:33 → EDBEDREQ 12-18 00:41 → 4E 12-19 15:51 → 2W 12-20 18:37 → 4E 12-22 13:33 → 4W 12-25 08:03
PROC: 0B21XFZ Change Tracheostomy Device in Trachea, External Approach (ICD-10-PCS; principal; 2016-12-18)
PROC: 0DP6XUZ Removal of Feeding Device from Stomach, External Approach (ICD-10-PCS; 2016-12-30)
DX: J96.21 Acute and chronic respiratory failure with hypoxia (principal); L89.152 Pressure ulcer of sacral region, stage 2; J18.9 Pneumonia, unspecified organism; E46 Unspecified protein-calorie malnutrition; J84.9 Interstitial pulmonary disease, unspecified; J95.03 Malfunction of tracheostomy stoma; I50.9 Heart failure, unspecified; R13.10 Dysphagia, unspecified; J44.0 Chronic obstructive pulmonary disease with (acute) lower respiratory infection; E03.9 Hypothyroidism, unspecified; E11.9 Type 2 diabetes mellitus without complications; J20.9 Acute bronchitis, unspecified; F32.9 Major depressive disorder, single episode, unspecified; Z68.1 Body mass index [BMI] 19.9 or less, adult; G89.29 Other chronic pain; Z59.0 Homelessness; Z86.718 Personal history of other venous thrombosis and embolism; Z93.1 Gastrostomy status; R94.31 Abnormal electrocardiogram [ECG] [EKG]; R19.7 Diarrhea, unspecified; Z98.84 Bariatric surgery status
CPT/HCPCS: 36415; 71010; 74230; 80048; 80053; 80069; 80162; 81003; 82550; 82553; 82962; 83036; 83605; 83735; 83880; 84100; 84443; 84484; 85025; 85610; 85730; 86703; 86803; 87040; 87070; 87181; 87205; 87324; 93005; 93306; 94640; 94664; 94760; 99285; J1815; J7620

== ENCOUNTER 2017-01-19 01:36 | Emergency (ER) | payer MEDICARE, MEDICAID ==
[~2017-01-19] VITALS: Ht 170.2 cm; Wt 74.8 kg
[~2017-01-19 01:36] MED LIST: ACTOS15 MG GT; ASCORBIC ACID500 MG GT; AZITHROMYCIN250 MG GT; AZITHROMYCIN250 MG ORAL; CALCIUM 500 +1 EAC6 GT; CEFDINIR300 MG PO; DIGOXIN0.25 MG/5 GT; DOCUSATE SODIU100 MG GT; DUONEB 0.5-3(2.53 ML HHN; DUONEB 0.5-3(2.53 ML TRANSTR092; FOLIC ACID1 MG ESINUS; GABAPENTIN100 MG GT; HYDROMORPHONE GT; HYDROXYZINE HCL25 M1 GT; LEVOTHYROXINE75 MCG GT; LORAZEPAM1 MG GT; METOCLOPRA10 MG/10 M GT; MIRALAX17 G2 ORAL; MIRTAZAPINE15 MG GT; MIRTAZAPINE7.5 MG GT; MORPHINE 22 MG/1 ML IV; NITROGLYCERIN0.4 MG SL; NOVOLOG100 UNIT/3 SUBQ; PROTONIX40 M2 GT; RESTORIL22.5 MG GT; TOPAMAX200 MG GT; TRAMADOL HCL50 MG GT; VITAMIN D1000 UNI1 GT; ZINC SULFATE220 M1 GT; ZOFRAN 4 MG4 MG/2 ML IV; ZOFRAN4 M3 GT
[2017-01-19 02:00] VITALS: BP 115/50
--- NOTE | 2017-01-19 02:09 | Emergency Room Report ---
History of Present Illness General Chief Complaint: Abnormal Labs Source: Patient, Medical Record, EMS Present Illness HPI 66-year-old female with history of COPD, on O2, CHF, bedbound for more than a year to 2 hip pain/replacement, presenting with a normal labs. reportedly hgb 11.0 Patient only complains of generalized weakness, also states that her bilateral hand reading instructor is a little weaker than normal but has been progressive over the last 2 weeks Denies any other complaints at this time Patient was recently discharged from the hospital after a 30 day stay, discharged on January 15, the patient was here for COPD exacerbation, which was stabilized and tracheostomy was removed, patient also had her gastrostomy tube removed at her request Allergies: Coded Allergies: ACETAMINOPHEN (Unverified Allergy, Unknown, 12/17/16) CODEINE (Unverified Allergy, Unknown, 03/04/14) IODINE (Unverified Allergy, Unknown, 12/17/16) Patient History Past Medical History: see triage record Past Surgical History: none Pertinent Family History: none Last Menstrual Period: n/a Reviewed Nursing Documentation: PMH: Agreed, PSxH: Agreed Nursing Documentation-PMH Hx Cardiac Problems: Yes - heart failure Hx Asthma: Yes - tracheostomy Hx COPD: Yes - acute and chronic respiratory failure Hx Diabetes: Yes Hx Cancer: No Hx Neurological Problems: Yes - fall Hx Seizures: Yes Review of Systems All Other Systems: negative except mentioned in HPI Physical Exam Vital Signs Date Time Temp Pulse Resp B/P (MAP) Pulse Ox O2 Delivery O2 Flow Rate FiO2 01/19/17 01:43 96.6 51 18 90/57 100 Nasal Cannula 3.0 Sp02 EP Interpretation: reviewed, normal General Appearance: normal inspection, well appearing, no apparent distress, alert, GCS 15, non-toxic Head: normocephalic, atraumatic Eyes: bilateral eye normal inspection, bilateral eye PERRL, bilateral eye EOMI ENT: normal pharynx, normal voice, moist mucus membranes, other - well healed tracheostomy scar with stitches Neck: normal inspection, full range of motion, supple Respiratory: lungs clear, normal breath sounds, no respiratory distress, no retraction, no wheezing, speaking full sentences, chest symmetrical Cardiovascular #1: no edema, normal capillary refill, bradycardia Cardiovascular #2: 2+ radial (R), 2+ radial (L) Gastrointestinal: non tender, soft, non-distended, no guarding, other - nontender al quadrants Musculoskeletal: normal inspection, back normal, normal range of motion, non- tender Neurologic: normal inspection, alert, oriented x3, responsive, motor strength/ tone normal, sensory intact, speech normal Psychiatric: normal inspection, judgement/insight normal, memory normal Skin: normal inspection, normal color, no rash, warm/dry, well hydrated, normal turgor Medical Decision Making Diagnostic Impression: Primary Impression: UTI (urinary tract infection) ER Course 66-year-old female sent for abnormal labs reportedly low H&H DDX: Anemia rule out other cause for generalized weakness, dehydration, which was disturbance Plan: Obtain labs, ua, ucx, CXR, EKG ER course: Patient has remained stable during ED stay. given abx for UTI Disposition: Patient is to be discharged to SNF Prescriptions given are keflex Patient is instructed to follow up with their primary care doctor within 5 days. Strict return precautions discussed with patient such as fever, chills, worsening/severe pain, nausea, vomiting, which may indicate severe illness. Patient verbalizes understanding and agrees with plan. Please note that this Emergency Department Report was dictated using [employer] checker technology software, occasionally this can lead to erroneous entry secondary to interpretation by the dictation equipment EKG Diagnostic Results EP Interpretation: Yes Rate: Bradycardic Rhythm: NSR ST Segments: No acute changes ASA given to patient: No Rhythm Strip EP Interpretation: Yes Rate: 50 Rhythm: NSR, no PVCs, no ectopy Chest X-ray CXR: Ordered: Yes 1 view Indication: Chest pain EP interpretation: Yes Interpretation: No consolidation, no effusion, no PTX, no acute cardiopulmonary disease Impression: No acute disease Electronically signed by Comfort Mueller MD Laboratory Tests Test 01/19/17 03:30 01/19/17 03:50 White Blood Count 7.2 K/UL (4.8-10.8) Red Blood Count 3.88 M/UL (4.20-5.40) L Hemoglobin 11.0 G/DL (12.0-16.0) L Hematocrit 36.6 % (37.0-47.0) L Mean Corpuscular Volume 94 FL (80-99) Mean Corpuscular Hemoglobin 28.4 PG (27.0-31.0) Mean Corpuscular Hemoglobin Concent 30.1 G/DL (32.0-36.0) L Red Cell Distribution Width 14.4 % (11.6-14.8) Platelet Count 328 K/UL (150-450) Mean Platelet Volume 7.2 FL (6.5-10.1) Neutrophils (%) (Auto) 45.4 % (45.0-75.0) Lymphocytes (%) (Auto) 37.3 % (20.0-45.0) Monocytes (%) (Auto) 8.2 % (1.0-10.0) Eosinophils (%) (Auto) 6.5 % (0.0-3.0) H Basophils (%) (Auto) 2.7 % (0.0-2.0) H Sodium Level 144 MMOL/L (136-145) Potassium Level 3.5 MMOL/L (3.5-5.1) Chloride Level 108 MMOL/L (98-107) H Carbon Dioxide Level 30 MMOL/L (21-32) Anion Gap 6 mmol/L (5-15) Blood Urea Nitrogen 11 mg/dL (7-18) Creatinine 0.5 MG/DL (0.55-1.30) L Estimate Glomerular Filtration Rate > 60 mL/min (>60) Glucose Level 81 MG/DL (74-106) Lactic Acid Level 0.80 mmol/L (0.66-2.22) Calcium Level 8.8 MG/DL (8.5-10.1) Total Bilirubin 0.2 MG/DL (0.2-1.0) Aspartate Amino Transferase (AST) 14 U/L (15-37) L Alanine Aminotransferase (ALT) 15 U/L (12-78) Alkaline Phosphatase 85 U/L (46-116) Troponin I 0.013 ng/mL (0.000-0.056) Total Protein 5.7 G/DL (6.4-8.2) L Albumin 2.1 G/DL (3.4-5.0) L Globulin 3.6 g/dL Albumin/Globulin Ratio 0.6 (1.0-2.7) L Urine Color Yellow Urine Appearance Cloudy Urine pH 6 (4.5-8.0) Urine Specific [place] 1.025 (1.005-1.035) Urine Protein 2+ (NEGATIVE) H Urine Glucose (UA) Negative (NEGATIVE) Urine Ketones Negative (NEGATIVE) Urine Occult Blood 4+ (NEGATIVE) H Urine Nitrite Negative (NEGATIVE) Urine Bilirubin Negative (NEGATIVE) Urine Urobilinogen Normal MG/DL (0.0-1.0) Urine Leukocyte Esterase 3+ (NEGATIVE) H Urine RBC 5-10 /HPF (0 - 2) H Urine WBC Tntc /HPF (0 - 2) H Urine Squamous Epithelial Cells None /LPF (NONE/OCC) Urine Bacteria Moderate /HPF (NONE) H Last Vital Signs Date Time Temp Pulse Resp B/P (MAP) Pulse Ox O2 Delivery O2 Flow Rate FiO2 01/19/17 01:43 96.6 51 18 90/57 100 Nasal Cannula 3.0 Disposition: XFER SNF Condition: Serious Scripts Cephalexin* (KEFLEX*) 500 Mg Capsule 500 MG ORAL Q6H for 7 Days, #28 CAP 0 Refills Prov: Comfort Mueller M.D. 01/19/17 Patient Instructions: Urinary Tract Infection, [id number] Comfort Mueller M.D. Jan 19, 2017 02:09
[2017-01-19 03:00] VITALS: BP 111/56
[2017-01-19 03:35] LABS: BASOPHILS % (AUTO) 2.7 % (0.0-2.0); EOSINOPHILS % (AUTO) 6.5 % (0.0-3.0); HEMATOCRIT 36.6 % (37.0-47.0); LYMPHOCYTES % (AUTO) 37.3 % (20.0-45.0); MEAN CORPUSCULAR VOLUME 94 FL (80-99); MONOCYTES % (AUTO) 8.2 % (1.0-10.0); NEUTROPHILS % (AUTO) 45.4 % (45.0-75.0); PLATELET COUNT 328 K/UL (150-450); RED BLOOD COUNT 3.88 M/UL (4.20-5.40); RED CELL DISTRIBUTION WIDTH 14.4 % (11.6-14.8); WHITE BLOOD COUNT 7.2 K/UL (4.8-10.8)
[2017-01-19 03:45] LABS: ALANINE AMINOTRANSFERASE 15 U/L (12-78); ALBUMIN 2.1 G/DL (3.4-5.0); ALBUMIN/GLOBULIN RATIO 0.6 (1.0-2.7); ALKALINE PHOSPHATASE 85 U/L (46-116); ANION GAP 6 mmol/L (5-15); ASPARTATE AMINO TRANSFERASE 14 U/L (15-37); BILIRUBIN,TOTAL 0.2 MG/DL (0.2-1.0); BLOOD UREA NITROGEN 11 mg/dL (7-18); CALCIUM 8.8 MG/DL (8.5-10.1); CARBON DIOXIDE 30 MMOL/L (21-32); CHLORIDE 108 MMOL/L (98-107); CREATININE 0.5 MG/DL (0.55-1.30); POTASSIUM 3.5 MMOL/L (3.5-5.1); SODIUM 144 MMOL/L (136-145)
[2017-01-19 03:56] LABS: APPEARANCE,URINE CLOUDY; BILIRUBIN, URINE NEGATIVE (NEGATIVE); GLUCOSE, URINE (UA) NEGATIVE (NEGATIVE); KETONES,URINE NEGATIVE (NEGATIVE); LEUKOCYTE ESTERASE ,URINE 3+ (NEGATIVE); NITRITE,URINE NEGATIVE (NEGATIVE); PH,URINE 6 (4.5-8.0); PROTEIN,URINE 2+ (NEGATIVE); UROBILINOGEN,URINE NORMAL MG/DL (0.0-1.0)
[2017-01-19 04:00] LABS: COLOR,URINE YELLOW
[2017-01-19 04:16] VITALS: BP 116/58
[2017-01-19] MEDS ORDERED: cefTRIAXone 1 GM in NS 55 ML IVPB ONE (04:45)
[2017-01-19 05:28] VITALS: BP 118/60
[2017-01-19] MEDS ORDERED: KEFLEX500 MG ORAL (05:55)
[2017-01-19 06:45] VITALS: BP 118/60
--- NOTE | 2017-01-19 08:57 | Diagnostic Imaging Report ---
Indication: PAIN Technique: XRAY CHEST 1 V Comparison:01/04/2017 Findings: Diffuse chronic interstitial disease remains unchanged. There is elevation of the right hemidiaphragm, unchanged. Heart is normal in size. A left arm PICC line has been removed. There is no acute change from previous study. The remainder the exam is unchanged. Impression: Removal of left arm PICC line. Chronic interstitial disease. No acute change from previous exam.
--- NOTE | 2017-01-19 14:37 | Cardiology Report ---
APPROVED REPORT EKG Measurement Heart [id number] [place] 194P [id number] Ectopic atrial rhythm Cannot rule out Anterior infarct, age undetermined Abnormal ECG
--- NOTE | 2017-01-19 14:37 | Cardiology Report ---
APPROVED REPORT EKG Measurement Heart [id number] [place] 194P [id number] Ectopic atrial rhythm Cannot rule out Anterior infarct, age undetermined Abnormal ECG
--- NOTE | 2017-01-19 14:37 | Cardiology Report ---
APPROVED REPORT EKG Measurement Heart [id number] SD 194P [id number] Ectopic atrial rhythm Cannot rule out Anterior infarct, age undetermined Abnormal ECG
--- NOTE | 2017-01-22 22:00 | Emergency Room Report ---
Physical Exam Vital Signs Date Time Temp Pulse Resp B/P (MAP) Pulse Ox O2 Delivery O2 Flow Rate FiO2 01/19/17 01:43 96.6 51 18 90/57 100 Nasal Cannula 3.0 Medical Decision Making Diagnostic Impression: Primary Impression: UTI (urinary tract infection) ER Course I called on 01/22 and spoke with the nurse who was taking care of this patient at her facility. I informed her of the results and told her she will likely need to be on IV antibiotics. She stated that the patient is currently taking Keflex as prescribed and the patient is sleeping and does not want to wake her at this point. She told me she would call back on 01/23 and have the patient speak with us. I informed her this is urgent Last Vital Signs Date Time Temp Pulse Resp B/P (MAP) Pulse Ox O2 Delivery O2 Flow Rate FiO2 01/19/17 06:45 98.1 56 16 118/60 99 Nasal Cannula 2.0 Disposition: SNF Condition: Serious Scripts Cephalexin* (KEFLEX*) 500 Mg Capsule 500 MG ORAL Q6H for 7 Days, #28 CAP 0 Refills Prov: Comfort Mueller M.D. 01/19/17 Referrals: DEDRICK SOLANO (PCP) Patient Instructions: Urinary Tract Infection, [id number]-[id number] CLARK HOLBROOK Jan 22, 2017 22:00
== END 2017-01-19 06:45 ==
LOC: EDBD 01:36 → EDUNIT# 01:36 → EMR 02:34
DX: N39.0 Urinary tract infection, site not specified (principal); J44.9 Chronic obstructive pulmonary disease, unspecified; I50.9 Heart failure, unspecified; E11.9 Type 2 diabetes mellitus without complications; Z74.01 Bed confinement status; Z99.81 Dependence on supplemental oxygen; Z88.6 Allergy status to analgesic agent; Z96.649 Presence of unspecified artificial hip joint; J84.9 Interstitial pulmonary disease, unspecified
CPT/HCPCS: 36415; 71010; 80053; 81003; 83605; 84484; 85025; 86850; 86900; 86901; 87086; 87181; 93005; 96374; 99284; J0696

== ENCOUNTER 2018-06-19 18:07 | Inpatient (IN) | payer MEDICARE, MEDICAID ==
[~2018-06-19] VITALS: Ht 160 cm; Wt 68.9 kg
[~2018-06-19 18:07] MED LIST changes: -HYDROXYZINE HCL25 M1 GT; +HYDROXYZINE HCL25 M1 ORAL; +KEFLEX500 MG ORAL
[2018-06-19] MEDS ORDERED: UNOBMED (18:17)
[2018-06-19 18:25] VITALS: BP 92/79
--- NOTE | 2018-06-19 18:29 | NUR ---
ED Nurse Note: med recon will done by [facility].
--- NOTE | 2018-06-19 18:30 | NUR ---
ED Nurse Note: pt wheelchaired in c/o n/v/d and abd pain w/ feeling sick for past three days. pt states she has hx small bowel obstruction before noted healed surgical scar on mid abd area. pt AA&ox4, gcs=15, skin warm and dry, resp even and unlabored on RA, -n/v/d at this time, active BS, abd soft nontender nondistended, on wheelchair, noted BP 93/79, sinus tach on physical biochemist, ERMD at the bedside, will cont monitor.
--- NOTE | 2018-06-19 18:45 | Emergency Room Report ---
History of Present Illness General Chief Complaint: Abdominal Pain Source: Patient, Medical Record Present Illness HPI 68-year-old female presenting with abdominal pain for the last 2-3 days. Some nausea and vomiting. Nonbloody. Barely eat today. She had a normal bowel movement today. She does have a history of small bowel extraction that required surgical repair a few years ago at [facility]. No fever no chills. Denies any chest pain Allergies: Coded Allergies: ACETAMINOPHEN (Unverified Allergy, Unknown, 12/17/16) CODEINE (Unverified Allergy, Unknown, 03/04/14) IODINE (Unverified Allergy, Unknown, 12/17/16) Patient History Past Medical History: see triage record Past Surgical History: none Pertinent Family History: none Reviewed Nursing Documentation: PMH: Agreed; PSxH: Agreed Nursing Documentation-PMH Past Medical History: No History, Except For Hx Cardiac Problems: Yes - heart failure Hx Asthma: Yes - tracheostomy Hx COPD: Yes - acute and chronic respiratory failure Hx Diabetes: Yes Hx Cancer: No Hx Neurological Problems: Yes - fall Hx Seizures: Yes Review of Systems All Other Systems: negative except mentioned in HPI Physical Exam Vital Signs Date Time Temp Pulse Resp B/P (MAP) Pulse Ox O2 Delivery O2 Flow Rate FiO2 06/19/18 18:15 98.2 114 18 118/76 92 Room Air Sp02 EP Interpretation: reviewed, normal General Appearance: alert, GCS 15, non-toxic, moderate distress Head: normocephalic, atraumatic Eyes: bilateral eye normal inspection, bilateral eye PERRL, bilateral eye EOMI ENT: normal ENT inspection, normal pharynx, normal voice, moist mucus membranes Neck: normal inspection, full range of motion, supple Respiratory: normal inspection, lungs clear, normal breath sounds, no respiratory distress, no retraction, no wheezing, speaking full sentences, chest symmetrical Cardiovascular #1: normal inspection, regular rate, rhythm, no edema, normal capillary refill Cardiovascular #2: 2+ radial (R), 2+ radial (L) Gastrointestinal: other - Well-healed surgical vertical scar, generally tender mostly in the periumbilical region. No guarding no rigidity. No rebound Musculoskeletal: normal inspection, back normal, normal range of motion, non- tender Neurologic: normal inspection, alert, oriented x3, responsive, motor strength/ tone normal, sensory intact, normal gait, speech normal Psychiatric: normal inspection, judgement/insight normal, memory normal Skin: normal inspection, normal color, no rash, warm/dry, well hydrated, normal turgor Procedures Critical Care Time Critical Care Time Critical care time of 40 minutes, was performed in order to assess and manage the high probability of imminent or life threatening deterioration, with frequent reassessment and excludes all billable procedures. Medical Decision Making Diagnostic Impression: Primary Impression: Small bowel obstruction ER Course 68-year-old female with abdominal pain Differential Diagnosis: Gastritis, gastroenteritis, cholecystitis, appendicitis, diverticulitis, SBO, mesenteric ischemia, cardiac, UTI/pyelo Plan: Basic labs, ua, ekg pain control, IVF CT abdopelvis ER course: Patient has remained HD stable during ED stay. no n/v here VSS Dr Bryan is aware of patients high grade SBO Disposition: Patient will be admitted to med surg. Discussed with hospitalist Dr Brewer Please note that this Emergency Department Report was dictated using [employer] operator technology software, occasionally this can lead to erroneous entry secondary to interpretation by the dictation equipment EKG Diagnostic Results EP Interpretation: Yes Rate: normal Rhythm: NSR ST Segments: Right bundle branch block with T-wave inversions noted in V3 which is new from prior EKG in January 2017 ASA given to patient: No Rhythm Strip EP Interpretation: Yes Rate: 70 Rhythm: NSR, no PVCs, no ectopy Chest X-ray CXR: Ordered: Yes 1 view Indication: Chest pain EP interpretation: Yes Interpretation: No consolidation, no effusion, no PTX, no acute cardiopulmonary disease Impression: No acute disease Electronically signed by Comfort Mueller MD Laboratory Tests Test 06/19/18 19:00 06/19/18 19:40 White Blood Count 15.2 K/UL (4.8-10.8) H Red Blood Count 5.47 M/UL (4.20-5.40) H Hemoglobin 15.0 G/DL (12.0-16.0) Hematocrit 47.9 % (37.0-47.0) H Mean Corpuscular Volume 88 FL (80-99) Mean Corpuscular Hemoglobin 27.4 PG (27.0-31.0) Mean Corpuscular Hemoglobin Concent 31.2 G/DL (32.0-36.0) L Red Cell Distribution Width 14.4 % (11.6-14.8) Platelet Count 324 K/UL (150-450) Mean Platelet Volume 6.4 FL (6.5-10.1) L Neutrophils (%) (Auto) 79.2 % (45.0-75.0) H Lymphocytes (%) (Auto) 13.1 % (20.0-45.0) L Monocytes (%) (Auto) 6.6 % (1.0-10.0) Eosinophils (%) (Auto) 0.1 % (0.0-3.0) Basophils (%) (Auto) 0.9 % (0.0-2.0) Prothrombin Time 10.7 SEC (9.30-11.50) Prothrombin Time INR 1.0 (0.9-1.1) PTT 28 SEC (23-33) Sodium Level 140 MMOL/L (136-145) Potassium Level 4.5 MMOL/L (3.5-5.1) Chloride Level 104 MMOL/L (98-107) Carbon Dioxide Level 22 MMOL/L (21-32) Anion Gap 14 mmol/L (5-15) Blood Urea Nitrogen 17 mg/dL (7-18) Creatinine 1.6 MG/DL (0.55-1.30) H Estimate Glomerular Filtration Rate 32.1 mL/min (>60) Glucose Level 154 MG/DL (74-106) H Calcium Level 9.6 MG/DL (8.5-10.1) Total Bilirubin 0.5 MG/DL (0.2-1.0) Aspartate Amino Transferase (AST) 28 U/L (15-37) Alanine Aminotransferase (ALT) 19 U/L (12-78) Alkaline Phosphatase 189 U/L (46-116) H Troponin I 0.000 ng/mL (0.000-0.056) Total Protein 8.1 G/DL (6.4-8.2) Albumin 3.6 G/DL (3.4-5.0) Globulin 4.5 g/dL Albumin/Globulin Ratio 0.8 (1.0-2.7) L Lipase 374 U/L (73-393) Urine Color Brown Urine Appearance Slightly cloudy Urine pH 5 (4.5-8.0) Urine Specific [place] 1.020 (1.005-1.035) Urine Protein 2+ (NEGATIVE) H Urine Glucose (UA) Negative (NEGATIVE) Urine Ketones 1+ (NEGATIVE) H Urine Blood 4+ (NEGATIVE) H Urine Nitrite Negative (NEGATIVE) Urine Bilirubin 1+ (NEGATIVE) H Urine Ictotest Negative (NEGATIVE) Urine Urobilinogen 4 MG/DL (0.0-1.0) H Urine Leukocyte Esterase 1+ (NEGATIVE) H Urine RBC 5-10 /HPF (0 - 2) H Urine WBC 5-10 /HPF (0 - 2) H Urine Squamous Epithelial Cells Occasional /LPF Urine Bacteria Many /HPF (NONE) H Last Vital Signs Date Time Temp Pulse Resp B/P (MAP) Pulse Ox O2 Delivery O2 Flow Rate FiO2 06/19/18 18:15 98.2 114 18 118/76 92 Room Air Disposition: ADMITTED INPATIENT Condition: Serious Comfort Mueller M.D. Jun 19, 2018 18:45
[2018-06-19] MEDS ORDERED: CHANTIX PO (18:48)
[2018-06-19] MEDS ORDERED: REMERON30 MG ORAL (18:48)
[2018-06-19] MEDS ORDERED: CYCLOBENZAPRINE10 MG ORAL (18:48)
[2018-06-19] MEDS ORDERED: SPIRIVA18 MCG INH (18:48)
[2018-06-19] MEDS ORDERED: ATROVENT HFA12.9 GM IH (18:48)
[2018-06-19] MEDS ORDERED: SYNTHROID100 MCG ORAL (18:48)
[2018-06-19] MEDS ORDERED: VENTOLIN HFA18 GM INH (18:48)
[2018-06-19] MEDS ORDERED: FOLIC ACID1 MG ORAL (18:48)
[2018-06-19] MEDS ORDERED: PRAMIPEXOLE D0.25 MG ORAL (18:48)
[2018-06-19] MEDS ORDERED: GABAPENTIN800 MG ORAL (18:48)
[2018-06-19 19:00] VITALS: BP 108/79
[2018-06-19 19:12] LABS: BASOPHILS % (AUTO) 0.9 % (0.0-2.0); EOSINOPHILS % (AUTO) 0.1 % (0.0-3.0); HEMATOCRIT 47.9 % (37.0-47.0); LYMPHOCYTES % (AUTO) 13.1 % (20.0-45.0); MEAN CORPUSCULAR VOLUME 88 FL (80-99); MONOCYTES % (AUTO) 6.6 % (1.0-10.0); NEUTROPHILS % (AUTO) 79.2 % (45.0-75.0); PLATELET COUNT 324 K/UL (150-450); RED BLOOD COUNT 5.47 M/UL (4.20-5.40); RED CELL DISTRIBUTION WIDTH 14.4 % (11.6-14.8); WHITE BLOOD COUNT 15.2 K/UL (4.8-10.8)
[2018-06-19 19:31] LABS: ANION GAP 14 mmol/L (5-15); BLOOD UREA NITROGEN 17 mg/dL (7-18); CALCIUM 9.6 MG/DL (8.5-10.1); CARBON DIOXIDE 22 MMOL/L (21-32); CHLORIDE 104 MMOL/L (98-107); CREATININE 1.6 MG/DL (0.55-1.30); POTASSIUM 4.5 MMOL/L (3.5-5.1); SODIUM 140 MMOL/L (136-145)
[2018-06-19 19:35] LABS: ALANINE AMINOTRANSFERASE 19 U/L (12-78); ALBUMIN 3.6 G/DL (3.4-5.0); ALBUMIN/GLOBULIN RATIO 0.8 (1.0-2.7); ALKALINE PHOSPHATASE 189 U/L (46-116); ASPARTATE AMINO TRANSFERASE 28 U/L (15-37); BILIRUBIN,TOTAL 0.5 MG/DL (0.2-1.0)
--- NOTE | 2018-06-19 19:51 | NUR ---
ED Nurse Note: pt c/o nausea and vomiting, had episode vomiting x1, ERMD notified, received order for zofran 4mg via iv once.
[2018-06-19 20:00] VITALS: BP 137/84
[2018-06-19 20:01] LABS: APPEARANCE,URINE SLIGHTLY CLOUDY; BILIRUBIN, URINE 1+ (NEGATIVE); COLOR,URINE BROWN; GLUCOSE, URINE (UA) NEGATIVE (NEGATIVE); KETONES,URINE 1+ (NEGATIVE); LEUKOCYTE ESTERASE ,URINE 1+ (NEGATIVE); NITRITE,URINE NEGATIVE (NEGATIVE); PH,URINE 5 (4.5-8.0); PROTEIN,URINE 2+ (NEGATIVE); UROBILINOGEN,URINE 4 MG/DL (0.0-1.0)
--- NOTE | 2018-06-19 20:10 | NUR ---
ED Nurse Note: pt provided with wash cloth, pt cleaned and changed into new gown, warm blanket provided for comfort. pt advised to notify staff if needed assist.
[2018-06-19] MEDS ORDERED: cefTRIAXone 1 GM in NS 55 ML IVPB ONE (20:30)
[2018-06-19] MEDS ORDERED: LORazepam Inj 2mg/ml 1ml IV PRN (21:15)
[2018-06-19] MEDS ORDERED: Mylanta II UD 30ml ORAL PRN (21:15)
[2018-06-19] MEDS ORDERED: Metoclopramide 10mg/2ml Inj IVP PRN (21:15)
[2018-06-19] MEDS ORDERED: Promethazine HCl 12.5 MG in NS 55 ML IV PRN (21:15)
[2018-06-19] MEDS ORDERED: Promethazine HCl 25 MG in NS 55 ML IV PRN (21:15)
[2018-06-19] MEDS ORDERED: Miralax 17gm pkt ORAL PRN (21:15)
[2018-06-19] MEDS ORDERED: Nitroglycerin Subl 0.4mg tab SL PRN (21:15)
--- NOTE | 2018-06-19 22:10 | NUR ---
ED Nurse Note: report given to RN Aldair and endorsed care, pt transferred to Tele, all belongings sent w/ pt, pt refused to go over belongings. VSS, sinus tach on cardiac exercise specialist. iv intact and patent.
--- NOTE | 2018-06-19 22:14 | General Surgery Progress Note ---
General Surgery-Progress Note Subjective Additional Comments has been vomiting for 4 days but apparently has had watery stool too Objective Last 24 Hour Vital Signs Date Time Temp Pulse Resp B/P (MAP) Pulse Ox O2 Delivery O2 Flow Rate FiO2 06/19/18 22:03 98.9 110 18 128/68 98 Room Air 06/19/18 20:00 98.3 116 18 137/84 100 Room Air 06/19/18 19:00 98.3 109 18 108/79 100 Room Air 06/19/18 18:25 109 18 Room Air 06/19/18 18:25 98.3 109 18 92/79 100 Room Air 06/19/18 18:15 98.2 114 18 118/76 92 Room Air Respiratory: clear Abdomen: soft, flat, present bowel sounds, non-distended Extremities: no tenderness Laboratory Tests Test 06/19/18 19:00 06/19/18 19:40 White Blood Count 15.2 K/UL (4.8-10.8) H Red Blood Count 5.47 M/UL (4.20-5.40) H Hemoglobin 15.0 G/DL (12.0-16.0) Hematocrit 47.9 % (37.0-47.0) H Mean Corpuscular Volume 88 FL (80-99) Mean Corpuscular Hemoglobin 27.4 PG (27.0-31.0) Mean Corpuscular Hemoglobin Concent 31.2 G/DL (32.0-36.0) L Red Cell Distribution Width 14.4 % (11.6-14.8) Platelet Count 324 K/UL (150-450) Mean Platelet Volume 6.4 FL (6.5-10.1) L Neutrophils (%) (Auto) 79.2 % (45.0-75.0) H Lymphocytes (%) (Auto) 13.1 % (20.0-45.0) L Monocytes (%) (Auto) 6.6 % (1.0-10.0) Eosinophils (%) (Auto) 0.1 % (0.0-3.0) Basophils (%) (Auto) 0.9 % (0.0-2.0) Prothrombin Time 10.7 SEC (9.30-11.50) Prothromb Time International Ratio 1.0 (0.9-1.1) Activated Partial Thromboplast Time 28 SEC (23-33) Sodium Level 140 MMOL/L (136-145) Potassium Level 4.5 MMOL/L (3.5-5.1) Chloride Level 104 MMOL/L (98-107) Carbon Dioxide Level 22 MMOL/L (21-32) Anion Gap 14 mmol/L (5-15) Blood Urea Nitrogen 17 mg/dL (7-18) Creatinine 1.6 MG/DL (0.55-1.30) H Estimat Glomerular Filtration Rate 32.1 mL/min (>60) Glucose Level 154 MG/DL (74-106) H Calcium Level 9.6 MG/DL (8.5-10.1) Total Bilirubin 0.5 MG/DL (0.2-1.0) Aspartate Amino Transf (AST/SGOT) 28 U/L (15-37) Alanine Aminotransferase (ALT/SGPT) 19 U/L (12-78) Alkaline Phosphatase 189 U/L (46-116) H Troponin I 0.000 ng/mL (0.000-0.056) Total Protein 8.1 G/DL (6.4-8.2) Albumin 3.6 G/DL (3.4-5.0) Globulin 4.5 g/dL Albumin/Globulin Ratio 0.8 (1.0-2.7) L Lipase 374 U/L (73-393) Urine Color Brown Urine Appearance Slightly cloudy Urine pH 5 (4.5-8.0) Urine Specific [place] 1.020 (1.005-1.035) Urine Protein 2+ (NEGATIVE) H Urine Glucose (UA) Negative (NEGATIVE) Urine Ketones 1+ (NEGATIVE) H Urine Blood 4+ (NEGATIVE) H Urine Nitrite Negative (NEGATIVE) Urine Bilirubin 1+ (NEGATIVE) H Urine Ictotest Negative (NEGATIVE) Urine Urobilinogen 4 MG/DL (0.0-1.0) H Urine Leukocyte Esterase 1+ (NEGATIVE) H Urine RBC 5-10 /HPF (0 - 2) H Urine WBC 5-10 /HPF (0 - 2) H Urine Squamous Epithelial Cells Occasional /LPF Urine Bacteria Many /HPF (NONE) H Assessment Additional Comments gastro-enteritis VS SBO Plan Additional Comments xr small bowel in AM Moshe Bryan MD Jun 19, 2018 22:14
--- NOTE | 2018-06-19 22:20 | NUR ---
NURSE NOTES: Received patient from LEVI Still from ED via gurney. Patient awake with no signs of acute distress. AOx4. Respiration even and non labored on room air. Seizure precaution observed d/t rip hx. Side rails padded, suction and oxygen are placed if needed. Oriented patient to room. Call light within reach. Bed in lowest position, locked and alarm on. Went over belongings with patient and pt. cooperates, also patient signed the belongings list. All needs attended and met. Will continue plan of care
[2018-06-19] MEDS: D5 1/2NS 1,000 ML IV SCH (22:43)
[2018-06-19] MEDS: Cyclobenzaprine 10mg Tab ORAL SCH (22:57)
[2018-06-20] VITALS: BP 157/87
--- NOTE | 2018-06-20 01:00 | Consultation ---
DATE OF CONSULTATION: 06/19/2018 CONSULTING PHYSICIAN: Moshe Bryan M.D. REQUESTING PHYSICIAN: Emergency room physician REASON FOR CONSULTATION: Abdominal pain and vomiting. HISTORY OF PRESENT ILLNESS: This is a 68-year-old female, who presented to emergency room complaining of vomiting for about 4 or 5 days and not sure how to explain it but she stated that she has been coughing and vomiting but she has been able to keep some liquids down. She claims that in the last 4 or 5 days, she has been having loose bowel movement. Like today, she has had two episodes. This patient has had a gastric bypass and her bowel movements are loose but stated that the bowel movements have been watery and in the last 4 days she has been having four or five bowel movement but today it has been twice. Besides she has been complaining of abdominal pain which seemed that it is more on the right upper quadrant. She denied any fever or chills. She has been coughing but she has COPD and asthma. She denies any dysuria or frequency. It should be noted that the patient is incontinent of the urine and stool. She has had a gastric bypass apparently in 2007 and she claimed that 1-1/2 years ago she had to have surgery for bowel obstruction or hernia and all kind of problem. PAST MEDICAL HISTORY: She claims to be allergic to codeine and acetaminophen. She denies any diabetes, hypertension, and renal diseases. She has a history of asthma and COPD. She has a history of pacemaker. PAST SURGICAL HISTORY: Surgeries include back surgery x2, pacemaker placement, cholecystectomy, gastric bypass, and ventral herniorrhaphy, right hip replacement. MEDICATION: Please see the medicine reconciliation form. SOCIAL HISTORY: The patient is a 68-year-old female, who is . She had 5 children one of whom . She smokes cigar and drinks occasionally. REVIEW OF SYSTEMS: Besides the above, she complains of incontinence. PHYSICAL EXAMINATION: GENERAL: The patient appeared to be a well-developed, well-nourished, 68-year-old female, lying on the bed, in no acute distress. HEENT: Head is normocephalic and atraumatic. Eyes, pupils are equal, round, and reactive to light. Mouth is clear but edentulous. NECK: There is no palpable thyromegaly or adenopathy. CHEST: Clear to auscultation and percussion. HEART: Tachycardic but there is no gallop or murmur. ABDOMEN: Soft and flat with mild tenderness. Bowel sounds are present. She has a scar of the midline incision above the umbilicus. She has a scar of the laparoscopy surgery. GENITAL: Deferred. EXTREMITIES: Status post right hip replacement. LABORATORY DATA: CBC has shown a WBC of 15,000 with a left shift. Chemistry is within normal limits. CAT scan of the abdomen shows some dilated small bowel, but I think this is probably a chronic. ASSESSMENT: Gastroenteritis versus small bowel obstruction. RECOMMENDATION: At this time, the patient requires to be NPO, on IV fluids. I have taken the liberty to ordering Gastrografin small bowel followthrough to make sure about bowel obstruction. Moshe Bryan M.D. DR: Carl JOB#: [id number] CC:
[2018-06-20 04:00] VITALS: BP 143/78
[2018-06-20] MEDS: Cyclobenzaprine 10mg Tab ORAL SCH ×3 (05:14→20:30)
[2018-06-20 06:37] LABS: BASOPHILS % (AUTO) 0.7 % (0.0-2.0); EOSINOPHILS % (AUTO) 0.4 % (0.0-3.0); HEMATOCRIT 42.1 % (37.0-47.0); HEMOGLOBIN 13.3 G/DL (12.0-16.0); LYMPHOCYTES % (AUTO) 13.6 % (20.0-45.0); MEAN CORPUSCULAR VOLUME 88 FL (80-99); MONOCYTES % (AUTO) 2.8 % (1.0-10.0); NEUTROPHILS % (AUTO) 82.5 % (45.0-75.0); PLATELET COUNT 282 K/UL (150-450); RED BLOOD COUNT 4.76 M/UL (4.20-5.40); RED CELL DISTRIBUTION WIDTH 14.9 % (11.6-14.8); WHITE BLOOD COUNT 11.2 K/UL (4.8-10.8)
--- NOTE | 2018-06-20 07:00 | NUR ---
HAND-OFF: Report given to LEVI Campbell. Patient stable
[2018-06-20 07:04] LABS: ALANINE AMINOTRANSFERASE 18 U/L (12-78); ALBUMIN 2.8 G/DL (3.4-5.0); ALBUMIN/GLOBULIN RATIO 0.8 (1.0-2.7); ALKALINE PHOSPHATASE 149 U/L (46-116); AMYLASE 48 U/L (25-115); ANION GAP 11 mmol/L (5-15); ASPARTATE AMINO TRANSFERASE 18 U/L (15-37); BILIRUBIN,TOTAL 0.4 MG/DL (0.2-1.0); BLOOD UREA NITROGEN 16 mg/dL (7-18); CALCIUM 8.2 MG/DL (8.5-10.1); CARBON DIOXIDE 22 MMOL/L (21-32); CHLORIDE 108 MMOL/L (98-107); CREATININE 0.9 MG/DL (0.55-1.30); SODIUM 141 MMOL/L (136-145)
[2018-06-20 07:21] VITALS: BP 133/80
--- NOTE | 2018-06-20 08:03 | NUR ---
CASE MANAGEMENT:REVIEW 68 YR OLD FEMALE PRESENTED TO OUR ER CC:ABDOMINAL PAIN W/NAUSEA AND VOMITING PMH: HEART FAILURE. TRACHEOSTOMY. SEIZURES. DIABETES SI: SMALL BOWEL OBSTRUCTION 98.2 114 18 92/79 92% ON RA WBC+15.2 CR+1.6 IS: 1L NS BOLUS IV ROCEPHIN IV ZOFRAN CHEST XRAY : TO TELEMETRY PLAN: NPO IVF GASTROGRAFIN SMALL BOWEL FOLLOW THROUGH
[2018-06-20] MEDS: Pantoprazole Inj IV SCH (08:17)
[2018-06-20] MEDS: Heparin 5000 units/ml inj SUBQ SCH ×2 (08:18→20:37)
--- NOTE | 2018-06-20 08:53 | NUR ---
NURSE NOTES: pt awake alert, no distress. no sob. call light within reach. bed in lowest position, locked. pt aware of xray small bowel today
[2018-06-20] MEDS: D5 1/2NS 1,000 ML IV SCH (10:56)
--- NOTE | 2018-06-20 11:39 | Consultation ---
History of Present Illness General Date patient seen: Jun 20, 2018 Chief Complaint: Abdominal Pain Present Illness HPI 68-year-old female with extensive PMHx including trach/peg,( removed now) COPD, CHF, presented with abdominal pain for the last 2-3 days. Some nausea and vomiting. Nonbloody. Barely eat today. She had a normal bowel movement today. She does have a history of small bowel resection a few years ago. she was tachycardic and admitted to telemetry for further management. Allergies: Coded Allergies: ACETAMINOPHEN (Unverified Allergy, Unknown, 12/17/16) CODEINE (Unverified Allergy, Unknown, 03/04/14) IODINE (Unverified Allergy, Unknown, 12/17/16) Medication History Scheduled Albuterol Sulfate (Ventolin Hfa), 2 PUFFS INH EVERY 4 TO 6 HOURS, (Reported) Cyclobenzaprine Hcl* (Flexeril*), 10 MG ORAL Q8HR, (Reported) Folic Acid* (Folic Acid*), 1 MG ORAL DAILY, (Reported) Gabapentin* (Gabapentin*), 800 MG ORAL THREE TIMES A DAY, (Reported) Hydroxyzine Hcl (Hydroxyzine Hcl), 25 MG ORAL QID, (Reported) Ipratropium [place] (Atrovent Hfa), 2 PUFFS IH QID, (Reported) Levothyroxine Sodium* (Synthroid*), 100 MCG ORAL DAILY, (Reported) Mirtazapine* (Remeron*), 30 MG ORAL BEDTIME, (Reported) Pramipexole* (Mirapex*), 0.25 MG ORAL THREE TIMES A DAY, (Reported) Tiotropium [place]* (Spiriva*), 1 PUFF INH DAILY, (Reported) Miscellaneous Medications Varenicline Tartrate (Chantix), 1 EACH PO, (Reported) Discontinued Medications Ascorbic Acid* (Ascorbic Acid*), 500 MG GT TWICE A DAY, (Reported) Discontinued Reason: Therapy completed Azithromycin* (Zithromax*), 500 MG GT QPM, (Reported) Discontinued Reason: Therapy completed Cefdinir (Cefdinir), 300 MG PO BID, (Reported) Discontinued Reason: Therapy completed Cephalexin* (Keflex*), 500 MG ORAL Q6H Discontinued Reason: Therapy completed Digoxin* (Digoxin*), 0.25 MG GT DAILY, (Reported) Discontinued Reason: Therapy completed Docusate Sodium* (Docusate Sodium*), 100 MG GT TWICE A DAY, (Reported) Discontinued Reason: Therapy completed Gabapentin* (Gabapentin*), 200 MG GT THREE TIMES A DAY, (Reported) Discontinued Reason: Prescription changed Insulin Aspart* (Novolog*), 0 SUBQ, (Reported) Discontinued Reason: Therapy completed Ipratropium/Albuterol Sulfate (DuoNeb 0.5-3(2.5)mg/3ml), 3 ML [id number] EVERY 2 HOURS, (Reported) Discontinued Reason: Therapy completed Ipratropium/Albuterol Sulfate (DuoNeb 0.5-3(2.5)mg/3ml), 3 ML HHN Q4HR PRN for Shortness of Breath, (Reported) Discontinued Reason: Therapy completed Levothyroxine Sodium* (Levothyroxine Sodium*), 75 MCG GT DAILY, (Reported) Discontinued Reason: Prescription changed Mirtazapine* (Remeron*), 7.5 MG GT BEDTIME, (Reported) Discontinued Reason: Prescription changed Morphine Sulfate* (Morphine Sulfate*), 2 MG IV Q4HR PRN for For Pain, (Reported) Discontinued Reason: Therapy completed Nitroglycerin (Nitroglycerin), 0.4 MG SL q5mins x 3 doses PRN for chest pain, ( Reported) Discontinued Reason: Therapy completed Ondansetron* (Zofran*), 4 MG GT Q6H PRN for Nausea & Vomiting, (Reported) Discontinued Reason: Therapy completed Ondansetron* (Zofran*), 4 MG IV Q6H PRN for Nausea & Vomiting, (Reported) Discontinued Reason: Therapy completed Pioglitazone Hcl* (Actos*), 15 MG GT DAILY, (Reported) Discontinued Reason: Therapy completed Polyethylene Glycol 3350* (Miralax*), 17 GM ORAL DAILY PRN for Constipation, ( Reported) Discontinued Reason: Therapy completed Temazepam (Restoril), 15 MG GT QHS PRN for Insomnia, (Reported) Discontinued Reason: Therapy completed Unable to Obtain Medications (Unable To Obtain Meds), (Reported) Discontinued Reason: Therapy completed Patient History Healthcare decision maker N Resuscitation status Full Code Advanced Directive on File Past Medical/Surgical History Past Medical/Surgical History: (1) COPD (chronic obstructive pulmonary disease) (2) CHF (congestive heart failure) (3) Hypothyroidism (4) Diabetes mellitus (5) Interstitial lung disease Review of Systems All Other Systems: negative except mentioned in HPI Physical Exam General Appearance: WD/WN, no apparent distress Lines, tubes and drains: peripheral HEENT: normocephalic Neck: non-tender, normal alignment Respiratory/Chest: chest wall non-tender, lungs clear Cardiovascular/Chest: normal peripheral pulses Abdomen: normal bowel sounds Genitourinary/Rectal: normal genital exam Extremities: normal range of motion Last 24 Hour Vital Signs Date Time Temp Pulse Resp B/P (MAP) Pulse Ox O2 Delivery O2 Flow Rate FiO2 06/20/18 07:42 120 06/20/18 07:22 Room Air 06/20/18 07:21 97.0 120 20 133/80 (97) 93 06/20/18 04:00 97.0 122 20 143/78 (99) 93 06/20/18 04:00 114 06/20/18 00:00 98.1 112 21 157/87 (110) 97 06/20/18 00:00 111 06/19/18 22:50 109 06/19/18 22:30 Room Air 06/19/18 22:03 98.9 110 18 128/68 98 Room Air 06/19/18 20:00 98.3 116 18 137/84 100 Room Air 06/19/18 19:00 98.3 109 18 108/79 100 Room Air 06/19/18 18:25 109 18 Room Air 06/19/18 18:25 98.3 109 18 92/79 100 Room Air 06/19/18 18:15 98.2 114 18 118/76 92 Room Air Intake and Output 06/19/18 06/20/18 18:59 06:59 Intake Total 10 ml 546.25 ml Balance 10 ml 546.25 ml Intake IV Total 10 ml 546.25 ml # Voids 2 Laboratory Tests Test 06/19/18 19:00 06/19/18 19:40 06/20/18 05:15 White Blood Count 15.2 K/UL (4.8-10.8) H 11.2 K/UL (4.8-10.8) H Red Blood Count 5.47 M/UL (4.20-5.40) H 4.76 M/UL (4.20-5.40) Hemoglobin 15.0 G/DL (12.0-16.0) 13.3 G/DL (12.0-16.0) Hematocrit 47.9 % (37.0-47.0) H 42.1 % (37.0-47.0) Mean Corpuscular Volume 88 FL (80-99) 88 FL (80-99) Mean Corpuscular Hemoglobin 27.4 PG (27.0-31.0) 27.9 PG (27.0-31.0) Mean Corpuscular Hemoglobin Concent 31.2 G/DL (32.0-36.0) L 31.6 G/DL (32.0-36.0) L Red Cell Distribution Width 14.4 % (11.6-14.8) 14.9 % (11.6-14.8) H Platelet Count 324 K/UL (150-450) 282 K/UL (150-450) Mean Platelet Volume 6.4 FL (6.5-10.1) L 7.4 FL (6.5-10.1) Neutrophils (%) (Auto) 79.2 % (45.0-75.0) H 82.5 % (45.0-75.0) H Lymphocytes (%) (Auto) 13.1 % (20.0-45.0) L 13.6 % (20.0-45.0) L Monocytes (%) (Auto) 6.6 % (1.0-10.0) 2.8 % (1.0-10.0) Eosinophils (%) (Auto) 0.1 % (0.0-3.0) 0.4 % (0.0-3.0) Basophils (%) (Auto) 0.9 % (0.0-2.0) 0.7 % (0.0-2.0) Prothrombin Time 10.7 SEC (9.30-11.50) Prothromb Time International Ratio 1.0 (0.9-1.1) Activated Partial Thromboplast Time 28 SEC (23-33) 24 SEC (23-33) Sodium Level 140 MMOL/L (136-145) 141 MMOL/L (136-145) Potassium Level 4.5 MMOL/L (3.5-5.1) 4.0 MMOL/L (3.5-5.1) Chloride Level 104 MMOL/L (98-107) 108 MMOL/L (98-107) H Carbon Dioxide Level 22 MMOL/L (21-32) 22 MMOL/L (21-32) Anion Gap 14 mmol/L (5-15) 11 mmol/L (5-15) Blood Urea Nitrogen 17 mg/dL (7-18) 16 mg/dL (7-18) Creatinine 1.6 MG/DL (0.55-1.30) H 0.9 MG/DL (0.55-1.30) Estimat Glomerular Filtration Rate 32.1 mL/min (>60) > 60 mL/min (>60) Glucose Level 154 MG/DL (74-106) H 135 MG/DL (74-106) H Calcium Level 9.6 MG/DL (8.5-10.1) 8.2 MG/DL (8.5-10.1) L Total Bilirubin 0.5 MG/DL (0.2-1.0) 0.4 MG/DL (0.2-1.0) Aspartate Amino Transf (AST/SGOT) 28 U/L (15-37) 18 U/L (15-37) Alanine Aminotransferase (ALT/SGPT) 19 U/L (12-78) 18 U/L (12-78) Alkaline Phosphatase 189 U/L (46-116) H 149 U/L (46-116) H Troponin I 0.000 ng/mL (0.000-0.056) Total Protein 8.1 G/DL (6.4-8.2) 6.5 G/DL (6.4-8.2) Albumin 3.6 G/DL (3.4-5.0) 2.8 G/DL (3.4-5.0) L Globulin 4.5 g/dL 3.7 g/dL Albumin/Globulin Ratio 0.8 (1.0-2.7) L 0.8 (1.0-2.7) L Lipase 374 U/L (73-393) 262 U/L (73-393) Urine Color Brown Urine Appearance Slightly cloudy Urine pH 5 (4.5-8.0) Urine Specific [place] 1.020 (1.005-1.035) Urine Protein 2+ (NEGATIVE) H Urine Glucose (UA) Negative (NEGATIVE) Urine Ketones 1+ (NEGATIVE) H Urine Blood 4+ (NEGATIVE) H Urine Nitrite Negative (NEGATIVE) Urine Bilirubin 1+ (NEGATIVE) H Urine Ictotest Negative (NEGATIVE) Urine Urobilinogen 4 MG/DL (0.0-1.0) H Urine Leukocyte Esterase 1+ (NEGATIVE) H Urine RBC 5-10 /HPF (0 - 2) H Urine WBC 5-10 /HPF (0 - 2) H Urine Squamous Epithelial Cells Occasional /LPF Urine Bacteria Many /HPF (NONE) H Amylase Level 48 U/L (25-115) Height (Feet): 5 Height (Inches): 2.00 Weight (Pounds): 126 Medications Current Medications Medications (Trade) Dose Ordered Sig/Sandra Route PRN Reason Start Time Stop Time Status Last Admin Dose Admin Al Hydroxide/Mg Hydroxide (Mylanta II) 30 ml Q6H PRN ORAL dyspepsia 06/19/18 21:15 07/19/18 21:14 Cyclobenzaprine HCl (Flexeril) 10 mg Q8HR ORAL 06/19/18 22:00 07/19/18 21:59 06/20/18 05:14 Dextrose (Dextrose 50%) 25 ml Q30M PRN IV Hypoglycemia 06/19/18 21:15 07/19/18 21:14 Dextrose (Dextrose 50%) 50 ml Q30M PRN IV Hypoglycemia 06/19/18 21:15 07/19/18 21:14 Dextrose/Sodium Chloride 1,000 ml @ 75 mls/hr [id number] IV 06/19/18 21:30 07/19/18 21:29 06/20/18 10:56 Diphenhydramine HCl (Benadryl) 25 mg Q6H PRN ORAL Itching/Pruritis 06/19/18 21:15 07/19/18 21:14 Gabapentin (Neurontin) 800 mg THREE TIMES A DAY ORAL 06/20/18 09:00 07/20/18 08:59 06/20/18 08:18 Heparin Sodium (Porcine) (Heparin 5000 units/ml) 5,000 units EVERY 12 HOURS SUBQ 06/20/18 09:00 07/20/18 08:59 06/20/18 08:18 Levothyroxine Sodium (Synthroid) 100 mcg ACBREAKFAST ORAL 06/20/18 06:30 07/20/18 06:29 Lorazepam (Ativan 2mg/ml 1ml) 1 mg Q4H PRN IV agitation 06/19/18 21:15 06/26/18 21:14 06/20/18 00:36 Metoclopramide HCl (Reglan) 10 mg Q6H PRN IVP servere nauasea 06/19/18 21:15 07/19/18 21:14 Nitroglycerin (Ntg) 0.4 mg Q5M X 3 DOSES PRN SL Prn Chest Pain 06/19/18 21:15 07/19/18 21:14 Ondansetron HCl (Zofran) 4 mg Q6H PRN IVP Nausea & Vomiting 06/19/18 21:15 07/19/18 21:14 06/20/18 05:14 Pantoprazole (Protonix) 40 mg DAILY IV 06/20/18 09:00 07/20/18 08:59 06/20/18 08:17 Polyethylene Glycol (Miralax) 17 gm HSPRN PRN ORAL Constipation 06/19/18 21:15 07/19/18 21:14 Promethazine HCl 12.5 mg/Sodium Chloride 55.5 ml @ 110 mls/hr Q6H PRN IV Refractory N/V 06/19/18 21:15 07/19/18 21:14 Promethazine HCl 25 mg/Sodium Chloride 56 ml @ 110 mls/hr Q6H PRN IV Refractory N/V 06/19/18 21:15 07/19/18 21:14 Temazepam (Restoril) 15 mg HSPRN PRN ORAL Insomnia 06/19/18 21:15 06/26/18 21:14 06/19/18 22:55 Assessment/Plan Problem List: (1) Small bowel obstruction ICD Codes: K56.609 - Unspecified intestinal obstruction, unspecified as to partial versus complete obstruction SNOMED: 283507619 (2) COPD (chronic obstructive pulmonary disease) ICD Codes: J44.9 - Chronic obstructive pulmonary disease, unspecified SNOMED: 55176642 (3) Diabetes mellitus ICD Codes: E11.9 - Type 2 diabetes mellitus without complications SNOMED: 13188368 (4) CHF (congestive heart failure) ICD Codes: I50.9 - Heart failure, unspecified SNOMED: 49455311 (5) Hypothyroidism ICD Codes: E03.9 - Hypothyroidism, unspecified SNOMED: 98639699 (6) Interstitial lung disease ICD Codes: J84.9 - Interstitial pulmonary disease, unspecified SNOMED: 317045627 Assessment/Plan NPO IV fluids check electrolytes f/u surgery recommendations gastrographin follow through GI series respiratory treatment titrate fio2 to sat of 92% keep in teli b/o of heart rate of 92% Quincy Herrera MD Jun 20, 2018 11:38
[2018-06-20 12:00] VITALS: BP 111/70
--- NOTE | 2018-06-20 12:07 | GI Initial Consult Note ---
History of Present Illness General Date patient seen: Jun 20, 2018 Time patient seen: 12:02 Reason for Hospitalization: Abdominal Pain Referring physician: RYAN SANTANA Reason for Consultation: ABDOMINAL PAIN Present Illness HPI 68-year-old female presenting with abdominal pain for the last 2-3 days. Some nausea and vomiting. Nonbloody. Barely eat today. She had a normal bowel movement today. She does have a history of small bowel extraction that required surgical repair a few years ago at [facility]. No fever no chills. Denies any chest pain GI consulted for abdominal pain. Patient seen, awake alert and oriented no apparent distress. The patient currently has no complaints of nausea or vomiting. Currently denies any abdominal pain. Abdomen is soft, nondistended, nontender. Patient has history of G-tube removal back in 2017. Noted that the patient did have a history of small bowel extraction. Abdominal ultrasound. Small bowel follow-through was also pending. Labs reviewed; WBC of 11.2, alkaline Phosphatase 149. Unknown history of colonoscopy. Home Meds Reported Medications Varenicline Tartrate (CHANTIX) 1 Each Tab.ds.pk, 1 EACH PO, PACK 06/19/18 Cyclobenzaprine Hcl* (FLEXERIL*) 10 Mg Tablet, 10 MG ORAL Q8HR, TAB 06/19/18 Ipratropium [place] (ATROVENT HFA) 12.9 Gm Hfa.aer.ad, 2 PUFFS IH QID 06/19/18 Folic Acid* (FOLIC ACID*) 1 Mg Tablet, 1 MG ORAL DAILY, TAB 06/19/18 Pramipexole* (MIRAPEX*) 0.25 Mg Tablet, 0.25 MG ORAL THREE TIMES A DAY, TAB 06/19/18 Tiotropium [place]* (SPIRIVA*) 18 Mcg Cap.w.dev, 1 PUFF INH DAILY, EA 06/19/18 Albuterol Sulfate (VENTOLIN HFA) 18 Gm Hfa.aer.ad, 2 PUFFS INH EVERY 4 TO 6 HOURS, GM 0 Refills 06/19/18 Mirtazapine* (REMERON*) 30 Mg Tablet, 30 MG ORAL BEDTIME, TAB 06/19/18 Levothyroxine Sodium* (SYNTHROID*) 100 Mcg Tablet, 100 MCG ORAL DAILY, TAB 06/19/18 Gabapentin* (GABAPENTIN*) 800 Mg Tablet, 800 MG ORAL THREE TIMES A DAY, TAB 06/19/18 Hydroxyzine Hcl (HYDROXYZINE HCL) 25 Mg Tablet, 25 MG ORAL QID, TAB 12/17/16 Discontinued Reported Medications Unable to Obtain Medications (UNABLE TO OBTAIN MEDS) 1 Ea Ea 06/19/18 Temazepam (RESTORIL) 22.5 Mg Capsule, 15 MG GT QHS PRN for Insomnia, CAP 12/20/16 Polyethylene Glycol 3350* (MIRALAX*) 17 Gm Powd.pack, 17 GM ORAL DAILY PRN for Constipation, PACKET 12/20/16 Ondansetron* (ZOFRAN*) 4 Mg/2 Ml Vial, 4 MG IV Q6H PRN for Nausea & Vomiting, VIAL 12/20/16 Nitroglycerin (NITROGLYCERIN) 0.4 Mg Tab.subl, 0.4 MG SL q5mins x 3 doses PRN for chest pain, TAB 12/20/16 Morphine Sulfate* (MORPHINE SULFATE*) 2 Mg/1 Ml Cartridge, 2 MG IV Q4HR PRN for For Pain, EA 12/20/16 Mirtazapine* (REMERON*) 15 Mg Tablet, 7.5 MG GT BEDTIME, TAB 12/20/16 Azithromycin* (ZITHROMAX*) 250 Mg Tablet, 500 MG GT QPM for 1 Day, TAB 0 Refills 12/20/16 Cefdinir (CEFDINIR) 300 Mg Capsule, 300 MG PO BID for LEUKOCYTOSIS for 2 Days, CAP 12/20/16 Ipratropium/Albuterol Sulfate (DuoNeb 0.5-3(2.5)mg/3ml) 3 Ml Ampul.neb, 3 ML HHN Q4HR PRN for Shortness of Breath, EA 12/20/16 Insulin Aspart* (NOVOLOG*) 100 Unit/1 Ml Insuln.pen, 0 SUBQ, #1 EA 0 Refills 12/20/16 Ipratropium/Albuterol Sulfate (DuoNeb 0.5-3(2.5)mg/3ml) 3 Ml Ampul.neb, 3 ML [id number] EVERY 2 HOURS, EA 12/17/16 Pioglitazone Hcl* (ACTOS*) 15 Mg Tablet, 15 MG GT DAILY, TAB 12/17/16 Ondansetron* (ZOFRAN*) 4 Mg Tablet, 4 MG GT Q6H PRN for Nausea & Vomiting, TAB 12/17/16 Levothyroxine Sodium* (LEVOTHYROXINE SODIUM*) 75 Mcg Tablet, 75 MCG GT DAILY, TAB Take in the morning on an empty stomach, at least 30 minutes before food. 12/17/16 Gabapentin* (GABAPENTIN*) 100 Mg Capsule, 200 MG GT THREE TIMES A DAY, CAP 12/17/16 Docusate Sodium* (DOCUSATE SODIUM*) 100 Mg Capsule, 100 MG GT TWICE A DAY, CAP 12/17/16 Digoxin* (DIGOXIN*) 0.25 Mg/5 Ml Solution, 0.25 MG GT DAILY, ML 12/17/16 Ascorbic Acid* (ASCORBIC ACID*) 500 Mg Tablet, 500 MG GT TWICE A DAY, TAB 12/17/16 Discontinued Scripts Cephalexin* (KEFLEX*) 500 Mg Capsule, 500 MG ORAL Q6H for 7 Days, #28 CAP 0 Refills Prov:Comfort Mueller M.D. 01/19/17 Med list reviewed/reconciled: Yes Allergies: Coded Allergies: ACETAMINOPHEN (Unverified Allergy, Unknown, 12/17/16) CODEINE (Unverified Allergy, Unknown, 03/04/14) IODINE (Unverified Allergy, Unknown, 12/17/16) Patient History History Provided By: Patient, Medical Record PMH Narrative Past Medical History: see triage record Past Surgical History: none Pertinent Family History: none Reviewed Nursing Documentation: PMH: Agreed; PSxH: Agreed Nursing Documentation-PMH Past Medical History: No History, Except For Hx Cardiac Problems: Yes - heart failure Hx Asthma: Yes - tracheostomy Hx COPD: Yes - acute and chronic respiratory failure Hx Diabetes: Yes Hx Cancer: No Hx Neurological Problems: Yes - fall Hx Seizures: Yes Social History: Denies: smoking, alcohol use, drug use, other Review of Systems All Other Systems: negative except mentioned in HPI Physical Exam Vital Signs Date Time Temp Pulse Resp B/P (MAP) Pulse Ox O2 Delivery O2 Flow Rate FiO2 06/19/18 18:15 98.2 114 18 118/76 92 Room Air Sp02 EP Interpretation: reviewed, normal Labs Laboratory Tests Test 06/19/18 19:00 06/19/18 19:40 06/20/18 05:15 White Blood Count 15.2 K/UL (4.8-10.8) H 11.2 K/UL (4.8-10.8) H Red Blood Count 5.47 M/UL (4.20-5.40) H 4.76 M/UL (4.20-5.40) Hemoglobin 15.0 G/DL (12.0-16.0) 13.3 G/DL (12.0-16.0) Hematocrit 47.9 % (37.0-47.0) H 42.1 % (37.0-47.0) Mean Corpuscular Volume 88 FL (80-99) 88 FL (80-99) Mean Corpuscular Hemoglobin 27.4 PG (27.0-31.0) 27.9 PG (27.0-31.0) Mean Corpuscular Hemoglobin Concent 31.2 G/DL (32.0-36.0) L 31.6 G/DL (32.0-36.0) L Red Cell Distribution Width 14.4 % (11.6-14.8) 14.9 % (11.6-14.8) H Platelet Count 324 K/UL (150-450) 282 K/UL (150-450) Mean Platelet Volume 6.4 FL (6.5-10.1) L 7.4 FL (6.5-10.1) Neutrophils (%) (Auto) 79.2 % (45.0-75.0) H 82.5 % (45.0-75.0) H Lymphocytes (%) (Auto) 13.1 % (20.0-45.0) L 13.6 % (20.0-45.0) L Monocytes (%) (Auto) 6.6 % (1.0-10.0) 2.8 % (1.0-10.0) Eosinophils (%) (Auto) 0.1 % (0.0-3.0) 0.4 % (0.0-3.0) Basophils (%) (Auto) 0.9 % (0.0-2.0) 0.7 % (0.0-2.0) Prothrombin Time 10.7 SEC (9.30-11.50) Prothromb Time International Ratio 1.0 (0.9-1.1) Activated Partial Thromboplast Time 28 SEC (23-33) 24 SEC (23-33) Sodium Level 140 MMOL/L (136-145) 141 MMOL/L (136-145) Potassium Level 4.5 MMOL/L (3.5-5.1) 4.0 MMOL/L (3.5-5.1) Chloride Level 104 MMOL/L (98-107) 108 MMOL/L (98-107) H Carbon Dioxide Level 22 MMOL/L (21-32) 22 MMOL/L (21-32) Anion Gap 14 mmol/L (5-15) 11 mmol/L (5-15) Blood Urea Nitrogen 17 mg/dL (7-18) 16 mg/dL (7-18) Creatinine 1.6 MG/DL (0.55-1.30) H 0.9 MG/DL (0.55-1.30) Estimat Glomerular Filtration Rate 32.1 mL/min (>60) > 60 mL/min (>60) Glucose Level 154 MG/DL (74-106) H 135 MG/DL (74-106) H Calcium Level 9.6 MG/DL (8.5-10.1) 8.2 MG/DL (8.5-10.1) L Total Bilirubin 0.5 MG/DL (0.2-1.0) 0.4 MG/DL (0.2-1.0) Aspartate Amino Transf (AST/SGOT) 28 U/L (15-37) 18 U/L (15-37) Alanine Aminotransferase (ALT/SGPT) 19 U/L (12-78) 18 U/L (12-78) Alkaline Phosphatase 189 U/L (46-116) H 149 U/L (46-116) H Troponin I 0.000 ng/mL (0.000-0.056) Total Protein 8.1 G/DL (6.4-8.2) 6.5 G/DL (6.4-8.2) Albumin 3.6 G/DL (3.4-5.0) 2.8 G/DL (3.4-5.0) L Globulin 4.5 g/dL 3.7 g/dL Albumin/Globulin Ratio 0.8 (1.0-2.7) L 0.8 (1.0-2.7) L Lipase 374 U/L (73-393) 262 U/L (73-393) Urine Color Brown Urine Appearance Slightly cloudy Urine pH 5 (4.5-8.0) Urine Specific [place] 1.020 (1.005-1.035) Urine Protein 2+ (NEGATIVE) H Urine Glucose (UA) Negative (NEGATIVE) Urine Ketones 1+ (NEGATIVE) H Urine Blood 4+ (NEGATIVE) H Urine Nitrite Negative (NEGATIVE) Urine Bilirubin 1+ (NEGATIVE) H Urine Ictotest Negative (NEGATIVE) Urine Urobilinogen 4 MG/DL (0.0-1.0) H Urine Leukocyte Esterase 1+ (NEGATIVE) H Urine RBC 5-10 /HPF (0 - 2) H Urine WBC 5-10 /HPF (0 - 2) H Urine Squamous Epithelial Cells Occasional /LPF Urine Bacteria Many /HPF (NONE) H Amylase Level 48 U/L (25-115) General Appearance: well appearing, no apparent distress, alert Head: normocephalic EENT: PERRL/EOMI, normal ENT inspection Neck: supple Respiratory: normal breath sounds, no respiratory distress Cardiovascular: normal rate Gastrointestinal: normal inspection, non tender, soft, normal bowel sounds, non -distended Rectal: deferred Genitourinary: no CVA tenderness Musculoskeletal: normal inspection, back normal Neurologic: normal inspection, alert, oriented x3, responsive Psychiatric: normal inspection, judgement/insight normal, memory normal Skin: normal inspection, normal color, no rash, warm/dry, palpation normal, well hydrated Lymphatic: normal inspection, no adenopathy Current Medications Current Medications Medications (Trade) Dose Ordered Sig/Sandra Route PRN Reason Start Time Stop Time Status Last Admin Dose Admin Al Hydroxide/Mg Hydroxide (Mylanta II) 30 ml Q6H PRN ORAL dyspepsia 06/19/18 21:15 07/19/18 21:14 Cyclobenzaprine HCl (Flexeril) 10 mg Q8HR ORAL 06/19/18 22:00 07/19/18 21:59 06/20/18 05:14 Dextrose (Dextrose 50%) 25 ml Q30M PRN IV Hypoglycemia 06/19/18 21:15 07/19/18 21:14 Dextrose (Dextrose 50%) 50 ml Q30M PRN IV Hypoglycemia 06/19/18 21:15 07/19/18 21:14 Dextrose/Sodium Chloride 1,000 ml @ 75 mls/hr [id number] IV 4/4/19 21:30 07/19/18 21:29 06/20/18 10:56 Diphenhydramine HCl (Benadryl) 25 mg Q6H PRN ORAL Itching/Pruritis 06/19/18 21:15 07/19/18 21:14 Gabapentin (Neurontin) 800 mg THREE TIMES A DAY ORAL 06/20/18 09:00 07/20/18 08:59 06/20/18 08:18 Heparin Sodium (Porcine) (Heparin 5000 units/ml) 5,000 units EVERY 12 HOURS SUBQ 06/20/18 09:00 07/20/18 08:59 06/20/18 08:18 Levothyroxine Sodium (Synthroid) 100 mcg ACBREAKFAST ORAL 06/20/18 06:30 07/20/18 06:29 Lorazepam (Ativan 2mg/ml 1ml) 1 mg Q4H PRN IV agitation 06/19/18 21:15 06/26/18 21:14 06/20/18 00:36 Metoclopramide HCl (Reglan) 10 mg Q6H PRN IVP servere nauasea 06/19/18 21:15 07/19/18 21:14 Nitroglycerin (Ntg) 0.4 mg Q5M X 3 DOSES PRN SL Prn Chest Pain 06/19/18 21:15 07/19/18 21:14 Ondansetron HCl (Zofran) 4 mg Q6H PRN IVP Nausea & Vomiting 06/19/18 21:15 07/19/18 21:14 06/20/18 05:14 Pantoprazole (Protonix) 40 mg DAILY IV 06/20/18 09:00 07/20/18 08:59 06/20/18 08:17 Polyethylene Glycol (Miralax) 17 gm HSPRN PRN ORAL Constipation 06/19/18 21:15 07/19/18 21:14 Promethazine HCl 12.5 mg/Sodium Chloride 55.5 ml @ 110 mls/hr Q6H PRN IV Refractory N/V 06/19/18 21:15 07/19/18 21:14 Promethazine HCl 25 mg/Sodium Chloride 56 ml @ 110 mls/hr Q6H PRN IV Refractory N/V 06/19/18 21:15 07/19/18 21:14 Temazepam (Restoril) 15 mg HSPRN PRN ORAL Insomnia 06/19/18 21:15 06/26/18 21:14 06/19/18 22:55 GI: Plan Problems: (1) Small bowel obstruction (2) Abdominal pain Plan Follow-up surgical recommendations Maintain n.p.o. plus IV fluids Follow-up small bowel follow-through Follow-up abdominal ultrasound Pain management Zofran as needed PPI Outpatient colonoscopy Discussed with Dr. Mesa. Thank you for this patient referral, we will follow. The patient was seen and examined at bedside and all new and available data was reviewed in the patients chart. I agree with the above findings, impression and plan. (Patient seen earlier today. Signature stamp does not reflect patient encounter time.). - MD [facility]ol [facility] EMERGENCY MEDICAL TECHNICIAN Jun 20, 2018 12:07
--- NOTE | 2018-06-20 13:29 | NUR ---
RADIOLOGY DEPT., SMALL BOWEL SERIES STILL IN PROGRESS. -P.DYE
--- NOTE | 2018-06-20 13:49 | NUR ---
*-* INSURANCE *--* ALL CLINICALS AND REVIEWS HAVE BEEN FAXED TO: [facility] [phone] [phone]
--- NOTE | 2018-06-20 13:53 | Diagnostic Imaging Report ---
Indication: Abdominal pain Technique: Ltaif-scale and duplex images of the upper abdomen were obtained Comparison: CT scan 06/19/2018 Findings: Technologist reports exam was significantly difficult due to patient contracture, dilated bowel, and overlying bowel gas Gallbladder is not visualized. Presumed surgically absent as it is also not visible on recent CT scan. Common bile duct measures 6 mm in diameter. No intrahepatic biliary ductal dilatation. There are demonstrates areas of increased echogenicity in a geographic distribution. Portal vein and hepatic veins are patent. Pancreas is not well visualized, due to surrounding dilated bowel.. 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 Spleen is unremarkable. Left kidney measures 9.2 cm in length. Right kidney measures 9.2 cm length. Both kidneys demonstrate normal echogenicity. There is no hydronephrosis. No focal abnormality . Non-aneurysmal abdominal aorta . Impression: Limited exam, as described Fatty liver Surgically absent gallbladder. Negative for dilated bile ducts
--- NOTE | 2018-06-20 14:31 | NUR ---
RADIOLOGY DEPT., NURSE ROSAURA NOTIFIED OF PATIENT'S RETURN AND STATUS OF EXAM. IV LINE NOT YET RE-CONNECTED.-P.DYE
--- NOTE | 2018-06-20 14:51 | Diagnostic Imaging Report ---
Indication: Abdominal pain, feeling sick for the last 3 days, prior history of small bowel obstruction Technique: Spiral acquisitions obtained through the abdomen and pelvis. No oral contrast utilized, per emergency room physician request No IV contrast utilized, per referring physician request.. Multiplanar reconstructions were generated. Total dose length product 599.9 mGycm. CTDIvol(s) 11.19 mGy. Dose reduction achieved using automated exposure control Comparison: None Findings: There is evidence of prior gastric bypass surgery. Small amount of gastric fundus is anastomosed to a loop of proximal jejunum anterior to the [place] stomach and transverse mesocolon. This is an into side anastomosis. The inferior limb is to the right of the apparent limb, crosses over the midline low the blind end of the inferior limb. This then tapers just to the left of midline just anterior to the transverse colon. The proximal transverse colon is anterior to the gastrojejunal anastomosis, and then courses around and behind the, making this an antecolic gastric bypass. No swirling or other features to suggest internal hernia identified. Distal to this, all of the small bowel is nondilated. Excluded [place] stomach contains a small amount of gas and fluid. The duodenum is mildly dilated and fluid-filled. The proximal jejunum is nondilated. Anastomotic [place] are also seen in the left midabdomen, probably at the Jeanie-en-Y anastomosis. A staple line is also seen in small bowel in the right mid abdomen. No free or loculated intraperitoneal gas or fluid is evident. No evidence of colonic diverticulosis or diverticulitis. The appendix is not clearly demonstrated, but there are no findings to suggest acute appendicitis. No free or loculated intraperitoneal gas or fluid is evident. Lack of IV contrast limits assessment of the solid organs. The liver is unremarkable. The gallbladder is not visualized, likely surgically absent. No biliary ductal dilatation. The pancreas is somewhat atrophic. The spleen, adrenals, kidneys are unremarkable. No retroperitoneal or mesenteric mass or adenopathy. No pelvic mass or adenopathy. Unremarkable uterus and adnexal structures. There is an inferior vena cava filter in the expected position. There is a right hip hemiarthroplasty prosthesis. This demonstrates protrusio acetabuli. There is evidence of contracture of both hips. The included lung bases demonstrate some fibrosis on the right. There are pacemaker wires in the heart. Impression: Evidence of proximal high-grade small bowel obstruction involving the inferior limb of an antecolic gastrojejunostomy. This appears to be in the left upper to mid abdomen, and configuration is suggestive more of adhesions than internal hernia as etiology of the obstruction. No evidence of free air or free fluid Protrusio of a right hip prosthesis Other findings as noted, including inferior vena cava filter, minimal pulmonary basilar fibrotic change, pacemaker, prior cholecystectomy This agrees with the preliminary interpretation provided overnight by [facility]erad[facility] service. Images also reviewed in person with Dr. Bryan The CT scanner at [facility] is accredited by the [employer] and the scans are performed using protocols designed to limit radiation exposure to as low as reasonably achievable to attain images of sufficient resolution adequate for diagnostic evaluation.
--- NOTE | 2018-06-20 15:04 | Diagnostic Imaging Report ---
Indication: Pain Technique: One view of the chest Comparison: none Findings: Right hemidiaphragm is elevated. There is a left chest bifocal pacemaker. The heart size is normal. Impression: No acute process
[2018-06-20 15:58] VITALS: BP 133/83
--- NOTE | 2018-06-20 17:53 | Diagnostic Imaging Report ---
Indication: Abdominal pain, evidence of small bowel obstruction Technique: Patient ingested oral water-soluble contrast. Serial overhead films obtained over the abdomen. 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 There is a right hip prosthesis with protrusio acetabuli. Mid abdominal dilated small bowel loops are demonstrated. Surgical anastomotic staple lines are seen in the left epigastric region and left and right mid abdomen After contrast ingestion, contrast fills a small gastric chamber, empties readily across the gastrojejunal anastomosis into both the afferent and efferent limbs of the gastrojejunostomy. At 2 hours, no contrast is seen beyond the short dilated proximal portion of small bowel. A 3.5 hours, a very small amount of contrast is seen in a very short segment of nondilated small bowel distal to the transition point at 4.5 hours, most of the contrast is still seen within the dilated proximal small bowel and stomach, but somewhat more contrast is seen to have propagated into the nondilated small bowel. Impression: Short segment of very dilated proximal small bowel distal to gastrojejunostomy is noted, consistent with findings reported on recent CT scan. At 3.5 hours, a very limited amount of contrast is seen distal to the left upper quadrant transition point in nondilated distal small bowel. Findings are consistent with incomplete but nonetheless fairly high-grade proximal small bowel obstruction. Follow-up abdominal radiograph has been ordered for the morning Findings discussed by phone with Dr. Bryan at the time of interpretation
--- NOTE | 2018-06-20 18:55 | General Surgery Progress Note ---
General Surgery-Progress Note Objective Last 24 Hour Vital Signs Date Time Temp Pulse Resp B/P (MAP) Pulse Ox O2 Delivery O2 Flow Rate FiO2 06/20/18 15:58 98.0 119 20 133/83 (100) 93 06/20/18 15:16 115 06/20/18 12:00 97.0 116 20 111/70 (84) 93 06/20/18 11:32 114 06/20/18 07:42 120 06/20/18 07:22 Room Air 06/20/18 07:21 97.0 120 20 133/80 (97) 93 06/20/18 04:00 97.0 122 20 143/78 (99) 93 06/20/18 04:00 114 06/20/18 00:00 98.1 112 21 157/87 (110) 97 06/20/18 00:00 111 06/19/18 22:50 109 06/19/18 22:30 Room Air 06/19/18 22:03 98.9 110 18 128/68 98 Room Air 06/19/18 20:00 98.3 116 18 137/84 100 Room Air 06/19/18 19:00 98.3 109 18 108/79 100 Room Air I&O Intake and Output 06/19/18 06/20/18 19:00 07:00 Intake Total 10 ml 621.25 ml Balance 10 ml 621.25 ml Intake IV Total 10 ml 621.25 ml # Voids 2 Respiratory: clear Abdomen: soft, flat, tenderness, decreased bowel sounds Extremities: no tenderness Laboratory Tests Test 06/19/18 19:00 06/19/18 19:40 06/20/18 05:15 White Blood Count 15.2 K/UL (4.8-10.8) H 11.2 K/UL (4.8-10.8) H Red Blood Count 5.47 M/UL (4.20-5.40) H 4.76 M/UL (4.20-5.40) Hemoglobin 15.0 G/DL (12.0-16.0) 13.3 G/DL (12.0-16.0) Hematocrit 47.9 % (37.0-47.0) H 42.1 % (37.0-47.0) Mean Corpuscular Volume 88 FL (80-99) 88 FL (80-99) Mean Corpuscular Hemoglobin 27.4 PG (27.0-31.0) 27.9 PG (27.0-31.0) Mean Corpuscular Hemoglobin Concent 31.2 G/DL (32.0-36.0) L 31.6 G/DL (32.0-36.0) L Red Cell Distribution Width 14.4 % (11.6-14.8) 14.9 % (11.6-14.8) H Platelet Count 324 K/UL (150-450) 282 K/UL (150-450) Mean Platelet Volume 6.4 FL (6.5-10.1) L 7.4 FL (6.5-10.1) Neutrophils (%) (Auto) 79.2 % (45.0-75.0) H 82.5 % (45.0-75.0) H Lymphocytes (%) (Auto) 13.1 % (20.0-45.0) L 13.6 % (20.0-45.0) L Monocytes (%) (Auto) 6.6 % (1.0-10.0) 2.8 % (1.0-10.0) Eosinophils (%) (Auto) 0.1 % (0.0-3.0) 0.4 % (0.0-3.0) Basophils (%) (Auto) 0.9 % (0.0-2.0) 0.7 % (0.0-2.0) Prothrombin Time 10.7 SEC (9.30-11.50) Prothromb Time International Ratio 1.0 (0.9-1.1) Activated Partial Thromboplast Time 28 SEC (23-33) 24 SEC (23-33) Sodium Level 140 MMOL/L (136-145) 141 MMOL/L (136-145) Potassium Level 4.5 MMOL/L (3.5-5.1) 4.0 MMOL/L (3.5-5.1) Chloride Level 104 MMOL/L (98-107) 108 MMOL/L (98-107) H Carbon Dioxide Level 22 MMOL/L (21-32) 22 MMOL/L (21-32) Anion Gap 14 mmol/L (5-15) 11 mmol/L (5-15) Blood Urea Nitrogen 17 mg/dL (7-18) 16 mg/dL (7-18) Creatinine 1.6 MG/DL (0.55-1.30) H 0.9 MG/DL (0.55-1.30) Estimat Glomerular Filtration Rate 32.1 mL/min (>60) > 60 mL/min (>60) Glucose Level 154 MG/DL (74-106) H 135 MG/DL (74-106) H Calcium Level 9.6 MG/DL (8.5-10.1) 8.2 MG/DL (8.5-10.1) L Total Bilirubin 0.5 MG/DL (0.2-1.0) 0.4 MG/DL (0.2-1.0) Aspartate Amino Transf (AST/SGOT) 28 U/L (15-37) 18 U/L (15-37) Alanine Aminotransferase (ALT/SGPT) 19 U/L (12-78) 18 U/L (12-78) Alkaline Phosphatase 189 U/L (46-116) H 149 U/L (46-116) H Troponin I 0.000 ng/mL (0.000-0.056) Total Protein 8.1 G/DL (6.4-8.2) 6.5 G/DL (6.4-8.2) Albumin 3.6 G/DL (3.4-5.0) 2.8 G/DL (3.4-5.0) L Globulin 4.5 g/dL 3.7 g/dL Albumin/Globulin Ratio 0.8 (1.0-2.7) L 0.8 (1.0-2.7) L Lipase 374 U/L (73-393) 262 U/L (73-393) Urine Color Brown Urine Appearance Slightly cloudy Urine pH 5 (4.5-8.0) Urine Specific [place] 1.020 (1.005-1.035) Urine Protein 2+ (NEGATIVE) H Urine Glucose (UA) Negative (NEGATIVE) Urine Ketones 1+ (NEGATIVE) H Urine Blood 4+ (NEGATIVE) H Urine Nitrite Negative (NEGATIVE) Urine Bilirubin 1+ (NEGATIVE) H Urine Ictotest Negative (NEGATIVE) Urine Urobilinogen 4 MG/DL (0.0-1.0) H Urine Leukocyte Esterase 1+ (NEGATIVE) H Urine RBC 5-10 /HPF (0 - 2) H Urine WBC 5-10 /HPF (0 - 2) H Urine Squamous Epithelial Cells Occasional /LPF Urine Bacteria Many /HPF (NONE) H Amylase Level 48 U/L (25-115) Assessment Additional Comments Partial small bowel obstruction Plan Additional Comments she will require Ex Lap if no BM by tomorrow Moshe Bryan MD Jun 20, 2018 18:55
--- NOTE | 2018-06-20 19:22 | History & Physical ---
History and Physical History & Physicial Satinder Brewer MD Jun 20, 2018 19:22
--- NOTE | 2018-06-20 19:28 | NUR ---
HAND-OFF: Report given to BETH SIMS.
--- NOTE | 2018-06-20 19:30 | NUR ---
NURSE NOTES: received pt from day shift nurse. pt in bed. no c/o n/v pt NPO. no acute distress noted. fall precaution in place. will continue to monitor
[2018-06-20 20:00] VITALS: BP 146/85
[2018-06-21] VITALS (19 sets, daily range): BP systolic 82–147; BP diastolic 52–87
--- NOTE | 2018-06-21 | NUR ---
NURSE NOTES: pt in bed sleeping, no acute distress, will continue to monitor
[2018-06-21] MEDS: D5 1/2NS 1,000 ML IV SCH ×3 (00:17→18:08)
--- NOTE | 2018-06-21 00:57 | NUR ---
NURSE NOTES: CALLED DR. SOLANO REGARDING SBP BELOW 80MMHG THAT LEFT MESSAGE. Addendum: 06/22/18 at 0243 brandon CELIS RN NURSE NOTES: WRONG TIME.
--- NOTE | 2018-06-21 01:30 | History and Physical Report ---
DATE OF ADMISSION: 06/20/2018 CHIEF COMPLAINT: Abdominal pain, nausea, and vomiting. HISTORY OF PRESENT ILLNESS: This is a 68-year-old female with past medical history significant for COPD; CHF; prior history of tracheostomy and PEG, status post removal; and history of hypothyroidism, who has presented to hospital complaining about nausea and vomiting associated with abdominal pain, said it got progressively worse over past several days. She had a history of small bowel obstruction a few years ago and she was found to have tachycardia. Shortly after initial evaluation in emergency, the patient was confirmed to have small bowel obstruction on a CAT scan and subsequently the patient was admitted to hospital with abdominal pain, most likely secondary to small bowel obstruction. PAST MEDICAL HISTORY/PAST SURGICAL HISTORY: Significant for COPD, CHF, hypothyroidism, diabetes type 2, interstitial lung disease, prior history of bowel resection, and IVC filter placement. MEDICATIONS AT HOME: Significant for albuterol, Flexeril, folic acid, gabapentin, hydroxyzine, Atrovent, Synthroid, Remeron, Mirapex, and Spiriva. ALLERGY: To codeine, iodine, and acetaminophen. SOCIAL HISTORY: Denies any smoking, alcohol, or drugs at this time. FAMILY HISTORY: Noncontributory. REVIEW OF SYSTEMS: Mostly as above. Complained of nausea and vomiting. Denies any hemoptysis or hematochezia. Denies any bright red blood per rectum. Denies any loss of consciousness. PHYSICAL EXAMINATION: VITAL SIGNS: On admission, blood pressure of 133/80, pulse of 120, respirations 20, and temperature is 97. GENERAL: The patient is awake, responsive, and moaning in pain. HEAD AND NECK: Pupils are reactive to light. Extraocular movements are intact. NECK: Supple. No JVD. LUNGS: Good air entry. No wheezes or rhonchi. Coarse breath sounds. Decreased air in bases. ABDOMEN: Soft and not distended. Mildly obese. No rebound tenderness. Decreased bowel sounds. EXTREMITIES: No cyanosis, clubbing, or edema. NEUROLOGICAL: Cranial nerves II through XII grossly intact. The patient moving all extremities. RECTAL: Refused and deferred. GENITOURINARY: Refused and deferred. LABORATORY AND DIAGNOSTIC DATA: Laboratory on admission from the ER, WBC of 15, hemoglobin of 15, hematocrit of 47, and platelets are 324,000. Sodium 140, potassium 4.5, chloride 104, bicarb 22, BUN 17, creatinine 1.6, glucose of 154, and calcium is 9.6. AST of 28, ALT of 19, and alkaline phosphatase is 189. First troponin is 0.00. Amylase is 48. Lipase is 374. PT of 10, INR 1.0, and PTT of 28. UA is +4 protein, +4 blood, +1 ketone, many bacteria, negative nitrite, and +1 leukocytes. The patient had a chest x-ray, no acute cardiopulmonary disease. The patient's left chest wall has a bifocal pacemaker. CT scan of the chest and abdomen had evidence of the proximal high-grade small bowel obstruction involving the inferior limb of the antecolic gastrojejunostomy. This appeared to be a left upper to mid abdomen with complications suggesting more of the adhesions than internal hernia, the etiology of obstruction. No evidence of the free air or free fluid. The patient has a history of right hip prosthesis, inferior vena cava, minimum pulmonary basal fibrotic changes, pacemaker, and prior cholecystectomy. ASSESSMENT: 1. Abdominal pain associated with nausea and vomiting, probably most likely secondary to the bowel obstruction. 2. History of COPD. 3. Congestive heart failure. 4. Sick sinus syndrome with status post pacemaker. 5. Hypothyroidism. 6. Diabetes type 2. 7. Interstitial lung disease. 8. History of PE, status post IVC filter. 9. The patient has a history of acute kidney injury as well. PLAN: Admit the patient to telemetry. We will follow up with Dr. Bryan from General Surgery; Dr. Herrera, Pulmonary Critical Care; and Dr. Mesa from Gastroenterology. Code status is Full Code. Keep the patient NPO. IV hydration. We will monitor laboratory closely. DVT prophylaxis with heparin subcutaneous. CODE STATUS: Full Code. Satinder Brewer M.D. DR: MAK JOB#: [id number] CC:
[2018-06-21] MEDS: Cyclobenzaprine 10mg Tab ORAL SCH ×3 (06:00→22:00)
[2018-06-21 06:16] LABS: BASOPHILS % (AUTO) 1.1 % (0.0-2.0); EOSINOPHILS % (AUTO) 0.1 % (0.0-3.0); HEMATOCRIT 39.5 % (37.0-47.0); HEMOGLOBIN 12.4 G/DL (12.0-16.0); LYMPHOCYTES % (AUTO) 15.5 % (20.0-45.0); MEAN CORPUSCULAR VOLUME 88 FL (80-99); MONOCYTES % (AUTO) 6.2 % (1.0-10.0); NEUTROPHILS % (AUTO) 77.2 % (45.0-75.0); PLATELET COUNT 221 K/UL (150-450); RED BLOOD COUNT 4.47 M/UL (4.20-5.40); RED CELL DISTRIBUTION WIDTH 14.9 % (11.6-14.8); WHITE BLOOD COUNT 10.3 K/UL (4.8-10.8)
[2018-06-21 06:24] LABS: ANION GAP 7 mmol/L (5-15); BLOOD UREA NITROGEN 15 mg/dL (7-18); CALCIUM 8.6 MG/DL (8.5-10.1); CARBON DIOXIDE 27 MMOL/L (21-32); CHLORIDE 108 MMOL/L (98-107); CREATININE 0.7 MG/DL (0.55-1.30); POTASSIUM 3.9 MMOL/L (3.5-5.1); SODIUM 142 MMOL/L (136-145)
--- NOTE | 2018-06-21 07:20 | NUR ---
HAND-OFF: Report given to LEVI Quevedo. pt remains in stable conditon. .
--- NOTE | 2018-06-21 07:21 | NUR ---
NURSE NOTES: Pt received from LEVI Cameron currently resting and sleeping on bed. No acute s/s of distress. IV site asymptomatic and patent. Bed in lowest position, call light and belongings within reach.
--- NOTE | 2018-06-21 08:16 | Diagnostic Imaging Report ---
EXAM: XR Abdomen, 1 Views CLINICAL HISTORY: ABD PAIN TECHNIQUE: Frontal view of the abdomen/pelvis . COMPARISON: Small bowel series. KUB, 06/20/18 1619 FINDINGS: Gastrointestinal tract: Oral contrast has traversed to the splenic flexure of the colon. Continued dilated mid abdominal small bowel loop containing contrast. Bones/joints: Total right hip prosthesis. Soft tissues: Surgical clips quadrant of the abdomen. Vasculature: IVC filter. IMPRESSION: Oral contrast has traversed to the splenic flexure of the colon. Continued dilated mid abdominal small bowel loop containing contrast. Findings consistent with a partial high-grade small bowel obstruction.
--- NOTE | 2018-06-21 08:42 | NUR ---
CASE MANAGEMENT: REVIEW 06/21/2018 SI: SMALL BOWEL OBSTRUCTION T 98.3 HR 104 RR 18 B/P 147/68 SATS 97% ON RA CL 108 GLU 132 IS: IVF @ 75 mL/HR FLEXERIL PO Q8H GABAPENTIN PO TID : TO TELEMETRY PLAN: NPO IVF F/U ON GASTROGRAFIN SMALL BOWEL FOLLOW THROUGH
[2018-06-21] MEDS: Pantoprazole Inj IV SCH (08:48)
[2018-06-21] MEDS: Heparin 5000 units/ml inj SUBQ SCH ×2 (08:55→20:56)
--- NOTE | 2018-06-21 10:54 | Pulmonology Progress Note ---
Assessment/Plan Problems: (1) Small bowel obstruction (2) COPD (chronic obstructive pulmonary disease) (3) CHF (congestive heart failure) (4) Interstitial lung disease (5) Pacemaker (6) Hypothyroidism (7) Diabetes mellitus Assessment/Plan iv fluids NPO follow through showed: Findings consistent with a partial high-grade small bowel obstruction. cardiology to clear for possible EX Laparotomy check electrolytes respiratory treatment symptomatic treatment. Subjective ROS Limited/Unobtainable: No Constitutional: Reports: no symptoms Allergies: Coded Allergies: ACETAMINOPHEN (Unverified Allergy, Unknown, 12/17/16) CODEINE (Unverified Allergy, Unknown, 03/04/14) IODINE (Unverified Allergy, Unknown, 12/17/16) Objective Last 24 Hour Vital Signs Date Time Temp Pulse Resp B/P (MAP) Pulse Ox O2 Delivery O2 Flow Rate FiO2 06/21/18 09:00 Room Air 06/21/18 08:00 97.9 117 20 140/87 (104) 94 06/21/18 08:00 106 06/21/18 04:00 98.3 104 18 147/68 (94) 97 06/21/18 04:00 101 06/21/18 00:00 117 06/21/18 00:00 98.3 119 17 138/86 (103) 92 06/20/18 21:00 Room Air 06/20/18 20:00 98.3 120 17 146/85 (105) 93 06/20/18 20:00 112 06/20/18 15:58 98.0 119 20 133/83 (100) 93 06/20/18 15:16 115 06/20/18 12:00 97.0 116 20 111/70 (84) 93 06/20/18 11:32 114 Intake and Output 06/20/18 06/21/18 18:59 06:59 Intake Total 300 ml 600 ml Balance 300 ml 600 ml Intake IV Total 300 ml 600 ml # Voids 2 2 General Appearance: WD/WN HEENT: normocephalic, atraumatic Respiratory/Chest: chest wall non-tender, lungs clear Breasts: no masses Cardiovascular: normal rate Abdomen: normal bowel sounds, soft, non tender Genitourinary: normal external genitalia Skin: no rash Microbiology Date/Time Source Procedure Growth Status 06/19/18 19:40 Urine,Clean Catch Urine Culture - Preliminary Gram Negative [facility] Resulted Laboratory Tests 06/21/18 05:30: White Blood Count 10.3, Red Blood Count 4.47, Hemoglobin 12.4, Hematocrit 39.5, Mean Corpuscular Volume 88, Mean Corpuscular Hemoglobin 27.8, Mean Corpuscular Hemoglobin Concent 31.5L, Red Cell Distribution Width 14.9H, Platelet Count 221 , Mean Platelet Volume 7.5, Neutrophils (%) (Auto) 77.2H, Lymphocytes (%) (Auto ) 15.5L, Monocytes (%) (Auto) 6.2, Eosinophils (%) (Auto) 0.1, Basophils (%) ( Auto) 1.1, Sodium Level 142, Potassium Level 3.9, Chloride Level 108H, Carbon Dioxide Level 27, Anion Gap 7, Blood Urea Nitrogen 15, Creatinine 0.7, Estimat Glomerular Filtration Rate > 60, Glucose Level 132H, Calcium Level 8.6 Current Medications Medications (Trade) Dose Ordered Sig/Sandra Route PRN Reason Start Time Stop Time Status Last Admin Dose Admin Al Hydroxide/Mg Hydroxide (Mylanta II) 30 ml Q6H PRN ORAL dyspepsia 06/19/18 21:15 07/19/18 21:14 Cyclobenzaprine HCl (Flexeril) 10 mg Q8HR ORAL 06/19/18 22:00 07/19/18 21:59 06/20/18 05:14 Dextrose (Dextrose 50%) 25 ml Q30M PRN IV Hypoglycemia 06/19/18 21:15 07/19/18 21:14 Dextrose (Dextrose 50%) 50 ml Q30M PRN IV Hypoglycemia 06/19/18 21:15 07/19/18 21:14 Dextrose/Sodium Chloride 1,000 ml @ 75 mls/hr [id number] IV 06/19/18 21:30 07/19/18 21:29 06/21/18 00:17 Diphenhydramine HCl (Benadryl) 25 mg Q6H PRN ORAL Itching/Pruritis 06/19/18 21:15 07/19/18 21:14 Gabapentin (Neurontin) 800 mg THREE TIMES A DAY ORAL 06/20/18 09:00 07/20/18 08:59 06/21/18 08:48 Heparin Sodium (Porcine) (Heparin 5000 units/ml) 5,000 units EVERY 12 HOURS SUBQ 06/20/18 09:00 07/20/18 08:59 06/21/18 08:55 Levothyroxine Sodium (Synthroid) 100 mcg ACBREAKFAST ORAL 06/20/18 06:30 07/20/18 06:29 Lorazepam (Ativan 2mg/ml 1ml) 1 mg Q4H PRN IV agitation 06/19/18 21:15 06/26/18 21:14 06/20/18 00:36 Metoclopramide HCl (Reglan) 10 mg Q6H PRN IVP servere nauasea 06/19/18 21:15 07/19/18 21:14 Nitroglycerin (Ntg) 0.4 mg Q5M X 3 DOSES PRN SL Prn Chest Pain 06/19/18 21:15 07/19/18 21:14 Ondansetron HCl (Zofran) 4 mg Q6H PRN IVP Nausea & Vomiting 06/19/18 21:15 07/19/18 21:14 06/20/18 05:14 Pantoprazole (Protonix) 40 mg DAILY IV 06/20/18 09:00 07/20/18 08:59 06/21/18 08:48 Polyethylene Glycol (Miralax) 17 gm HSPRN PRN ORAL Constipation 06/19/18 21:15 07/19/18 21:14 Promethazine HCl 12.5 mg/Sodium Chloride 55.5 ml @ 110 mls/hr Q6H PRN IV Refractory N/V 06/19/18 21:15 07/19/18 21:14 Promethazine HCl 25 mg/Sodium Chloride 56 ml @ 110 mls/hr Q6H PRN IV Refractory N/V 06/19/18 21:15 07/19/18 21:14 Temazepam (Restoril) 15 mg HSPRN PRN ORAL Insomnia 06/19/18 21:15 06/26/18 21:14 06/19/18 22:55 Quincy Herrera MD Jun 21, 2018 10:54
--- NOTE | 2018-06-21 10:54 | NUR ---
NURSE NOTES: Per Dr. Herrera, reduce Gabapentin dosage from 800 mg to 400 mg, keep same frequency and route.
--- NOTE | 2018-06-21 12:06 | General Surgery Progress Note ---
General Surgery-Progress Note Subjective Symptoms: pain same Objective Last 24 Hour Vital Signs Date Time Temp Pulse Resp B/P (MAP) Pulse Ox O2 Delivery O2 Flow Rate FiO2 06/21/18 09:00 Room Air 06/21/18 08:00 97.9 117 20 140/87 (104) 94 06/21/18 08:00 106 06/21/18 04:00 98.3 104 18 147/68 (94) 97 06/21/18 04:00 101 06/21/18 00:00 117 06/21/18 00:00 98.3 119 17 138/86 (103) 92 06/20/18 21:00 Room Air 06/20/18 20:00 98.3 120 17 146/85 (105) 93 06/20/18 20:00 112 06/20/18 15:58 98.0 119 20 133/83 (100) 93 06/20/18 15:16 115 I&O Intake and Output 06/20/18 06/21/18 18:59 06:59 Intake Total 300 ml 600 ml Balance 300 ml 600 ml Intake IV Total 300 ml 600 ml # Voids 2 2 Respiratory: clear Abdomen: soft, flat, tenderness, absent bowel sounds Extremities: no tenderness Laboratory Tests Test 06/21/18 05:30 White Blood Count 10.3 K/UL (4.8-10.8) Red Blood Count 4.47 M/UL (4.20-5.40) Hemoglobin 12.4 G/DL (12.0-16.0) Hematocrit 39.5 % (37.0-47.0) Mean Corpuscular Volume 88 FL (80-99) Mean Corpuscular Hemoglobin 27.8 PG (27.0-31.0) Mean Corpuscular Hemoglobin Concent 31.5 G/DL (32.0-36.0) L Red Cell Distribution Width 14.9 % (11.6-14.8) H Platelet Count 221 K/UL (150-450) Mean Platelet Volume 7.5 FL (6.5-10.1) Neutrophils (%) (Auto) 77.2 % (45.0-75.0) H Lymphocytes (%) (Auto) 15.5 % (20.0-45.0) L Monocytes (%) (Auto) 6.2 % (1.0-10.0) Eosinophils (%) (Auto) 0.1 % (0.0-3.0) Basophils (%) (Auto) 1.1 % (0.0-2.0) Sodium Level 142 MMOL/L (136-145) Potassium Level 3.9 MMOL/L (3.5-5.1) Chloride Level 108 MMOL/L (98-107) H Carbon Dioxide Level 27 MMOL/L (21-32) Anion Gap 7 mmol/L (5-15) Blood Urea Nitrogen 15 mg/dL (7-18) Creatinine 0.7 MG/DL (0.55-1.30) Estimat Glomerular Filtration Rate > 60 mL/min (>60) Glucose Level 132 MG/DL (74-106) H Calcium Level 8.6 MG/DL (8.5-10.1) Assessment Additional Comments Small bowel obstruction Plan Additional Comments requires Ex Lap. risk and benefits were explained Moshe Bryan MD Jun 21, 2018 12:06
--- NOTE | 2018-06-21 12:08 | Pre-Procedure Note/Attestation ---
Pre-Procedure Note/Attestation Complete Prior to Procedure Planned Procedure: not applicable Procedure Narrative: Exploratory Laparotomy Indications for Procedure Pre-Operative Diagnosis: Small Bowel Obstruction Attestation I attest that I discussed the nature of the procedure; its benefits; risks and complications; and alternatives (and the risks and benefits of such alternatives ), prior to the procedure, with the patient (or the patient's legal accounts receivable representative). I attest that, if there was a reasonable possibility of needing a blood transfusion, the patient (or the patient's legal accounts receivable representative) was given the [facility] standardized written summary, pursuant to the [employer] [place] Blood Safety Act ([place] Health and Safety Code # 1645, as amended). I attest that I re-evaluated the patient just prior to the surgery and that there has been no change in the patient's H&P, except as documented below: Moshe Bryan MD Jun 21, 2018 12:08
[2018-06-21] MEDS ORDERED: Bacitracin 50000 Units Vial ONE (12:51)
[2018-06-21] MEDS ORDERED: NeoSporin Gu Irrig 1ml Amp IRRIG ONE (12:51)
--- NOTE | 2018-06-21 13:55 | General Progress Note ---
Assessment/Plan Assessment/Plan Assessment - SBO - abd pain Recommendations - NPO - Surgical follow up - IVF - Follow exam Subjective Allergies: Coded Allergies: ACETAMINOPHEN (Unverified Allergy, Unknown, 12/17/16) CODEINE (Unverified Allergy, Unknown, 03/04/14) IODINE (Unverified Allergy, Unknown, 12/17/16) Subjective above noted c/o some abd pain Objective Last 24 Hour Vital Signs Date Time Temp Pulse Resp B/P (MAP) Pulse Ox O2 Delivery O2 Flow Rate FiO2 06/21/18 12:00 98 06/21/18 12:00 98.1 93 18 131/75 (93) 97 06/21/18 09:00 Room Air 06/21/18 08:00 97.9 117 20 140/87 (104) 94 06/21/18 08:00 106 06/21/18 04:00 98.3 104 18 147/68 (94) 97 06/21/18 04:00 101 06/21/18 00:00 117 06/21/18 00:00 98.3 119 17 138/86 (103) 92 06/20/18 21:00 Room Air 06/20/18 20:00 98.3 120 17 146/85 (105) 93 06/20/18 20:00 112 06/20/18 15:58 98.0 119 20 133/83 (100) 93 06/20/18 15:16 115 Intake and Output 06/20/18 06/21/18 18:59 06:59 Intake Total 300 ml 600 ml Balance 300 ml 600 ml Intake IV Total 300 ml 600 ml # Voids 2 2 Laboratory Tests 06/21/18 05:30: White Blood Count 10.3, Red Blood Count 4.47, Hemoglobin 12.4, Hematocrit 39.5, Mean Corpuscular Volume 88, Mean Corpuscular Hemoglobin 27.8, Mean Corpuscular Hemoglobin Concent 31.5L, Red Cell Distribution Width 14.9H, Platelet Count 221 , Mean Platelet Volume 7.5, Neutrophils (%) (Auto) 77.2H, Lymphocytes (%) (Auto ) 15.5L, Monocytes (%) (Auto) 6.2, Eosinophils (%) (Auto) 0.1, Basophils (%) ( Auto) 1.1, Sodium Level 142, Potassium Level 3.9, Chloride Level 108H, Carbon Dioxide Level 27, Anion Gap 7, Blood Urea Nitrogen 15, Creatinine 0.7, Estimat Glomerular Filtration Rate > 60, Glucose Level 132H, Calcium Level 8.6 Height (Feet): 5 Height (Inches): 3.00 Weight (Pounds): 135 Objective Elderly WW NCAT supple CTA RR Abd mildly distended, (+) diffuse TTP, (+) Old scar no edema Kiya Rosario MD Jun 21, 2018 13:55
[2018-06-21] MEDS ORDERED: NS Irrig 1000ml ONE (14:00)
--- NOTE | 2018-06-21 14:05 | NUR ---
NURSE NOTES: Per pt, I am allergic to acetaminophen (itching), codeine, and iodoform packing (redness, swelling) but I am not allergic to iodine.
[2018-06-21] MEDS ORDERED: Zemuron 50mg/5ml Inj IV ONE (14:09)
[2018-06-21] MEDS ORDERED: fentaNYL 100 mcg/2 mL IV ONE (14:12)
[2018-06-21] MEDS ORDERED: Lidocaine 1% MPF 10mg/ml 5ml ONE (14:13)
[2018-06-21] MEDS ORDERED: Propofol 200mg/20ml IV ONE (14:13)
[2018-06-21] MEDS ORDERED: Piperacillin/Tazobactam 3.375 GM in NS 110 ML IVPB SCH ×2 (14:15→22:00)
--- NOTE | 2018-06-21 14:15 | NUR ---
NURSE NOTES: Pt picked up for Exploratory Laparoscopy by Eligio cesar. No acute s/s of distress
[2018-06-21] MEDS ORDERED: Morphine Sulfate 10mg/ml Inj ONE (15:04)
[2018-06-21] MEDS ORDERED: NS Irrig 1000ml IRRIG ONE (15:22)
[2018-06-21] MEDS ORDERED: Pantoprazole Inj IVP SCH (15:30)
[2018-06-21] MEDS ORDERED: Hydromorphone 0.5mg/0.5ml inj IVP PRN ×3 (15:30→18:12)
[2018-06-21] MEDS ORDERED: Metoclopramide 10mg/2ml Inj IVP PRN ×2 (15:30→17:27)
[2018-06-21] MEDS ORDERED: HYDROmorphone 1mg/ml Carpuject IVP PRN (15:30)
[2018-06-21] MEDS ORDERED: D5 1/2NS w/KCl 20mEq 1,000 ML IV SCH ×2 (15:30→17:00)
--- NOTE | 2018-06-21 15:30 | Brief Operative Note ---
Immediate Post Operative Note Operative Note Pre-op Diagnosis: Small Bowel Obstruction Procedure: ex lap, lysis of adhesions and small bowel resection with primary anastomosis Post-op Diagnosis: same as pre-op Findings: consistent w/pre-op dx studies Surgeon: Elio Stock Wetter: Dr. Noble Anesthesiologist: Dr. Moreno Anesthesia: general Specimen: yes Complications: none Condition: stable Fluids: per anesthesiologist Estimated Blood Loss: minimal Drains: none Implant(s) used?: No Moshe Bryan MD Jun 21, 2018 15:30
--- NOTE | 2018-06-21 15:55 | NUR ---
RESPIRATORY NOTE: Received patient intubated from OR. Placed patient on mechanical ventilator on ordered ventilator settings of AC 10rr, 500vt, 60% FIO2, +2 by MD. Pt endotracheal tube is patent and secured via anchor fast. No resp distress noted. Suctioned patient PRN. Vent alarms are on and audible. Vent is plugged into red outlet. Will monitor patient progress.
--- NOTE | 2018-06-21 16:06 | Operative Note - PDOC ---
Operative Note Operative Note Date of Operation/Procedure: Jun 21, 2018 Pre-op Diagnosis: hypotension, dehydration, poor peripheral access Procedure: right femoral central venous catheter insertion Post-op Diagnosis: same as pre-op Surgeon: Aide Anesthesia: local Specimen: none Complications: none Condition: stable Estimated Blood Loss: minimal Drains: none Implant(s) used?: No Indications for Procedure 68 year old female about to undergo an exploratory laparotomy was found to be very dehydrated and hypotensive requiring fluids and meds for surgery after induction. poor peripheral access. central venous catheter indicated and necessary for surgery. Description of Procedure right groin was prepped and draped in standard surgical fashion. finder needle used to cannulate right femoral vein which was accessed on first attempt. guidewire placed and needle removed. small skin incision made and dilator used. triple lumen catheter placed over wire and wire discarded. all ports flushed and aspirated without complication. line sutured in place and dressings applied. line ready for use and please see operative report for surgical details Francisco Noble Jun 21, 2018 16:06
--- NOTE | 2018-06-21 16:11 | NUR ---
TRANSFER TO FLOOR: Patient transferred to [facility], per Dr. Moreno. Report given to LEVI Womack. Belongings and medications given to LEVI Womack - pt had 2 $20 bills, and one $10. Family and or S/O informed of transfer.
--- NOTE | 2018-06-21 16:15 | NUR ---
NURSE NOTES: Pt was admitted to ICU from OR. Report received from Sae SIMS and Héctor RN. Pt is sedated, intubated, ETT 7.0, AC10, TV500, Peep 2.0, FIO2 65%, at 100% O2sat. surveillance monitor displays NSR. Lung sounds are clear. Abdomen has post-surgical dressing in place at mid-abdomen, bowel sounds are hypoactive. Driscoll catheter in place, 16F, draining clear/yellow urine. Peripheral IV access on right hand #22G, saline lock, patent/intact. Also, central line on right Femoral TLC, patent/intact. Skin is intact. NG tube in place, draining small amoutns of blood tinged output. Bed is locked with three side rails up, and call light within reach. OR MD at bedside, order received to connect NG tube to low suction. Will continue to monitor pt and follow care per MD orders and protocol. Addendum: 06/21/18 at 2035 by JUANY WHITESIDE RN Side rails are padded for seizure precautions.
--- NOTE | 2018-06-21 16:20 | Anethesia Preoperative Eval ---
Anesthesia Pre-op PMH/ROS General Date of Evaluation: Jun 21, 2018 Time of Evaluation: 14:02 Anesthesiologist: Tiffanie ASA Score: ASA 3 Mallampati Score Class I : Soft palate, uvula, fauces, pillars visible Class II: Soft palate, uvula, fauces visible Class III: Soft palate, base of uvula visible Class IV: Only hard plate visible Mallampati Classification: Class II Surgeon: Randi Diagnosis: Small bovel obstruction Surgical Procedure: Exploratory laparotomy Anesthesia History: none Family History: no anesthesia problems Allergies: Coded Allergies: ACETAMINOPHEN (Verified Allergy, Unknown, itching, 06/21/18) CODEINE (Verified Allergy, Unknown, 06/21/18) Uncoded Allergies: iodoform packing (Allergy, Unknown, redness, swelling, 06/21/18) Patient NPO?: Yes NPO Date: Jun 19, 2018 NPO Time: 1800 Past Medical History Cardiovascular: Reports: HTN, arrhythmia - sick sinus s-m pacemaker in place, other - h/o chf; Denies: CAD, PA, valve dz Pulmonary: Reports: COPD - stable on inhalers; Denies: asthma, SID, other Gastrointestinal/Genitourinary: Reports: GERD, other - s/p gastric bypass. PEG tube in and out; Denies: CRI, ESRD Neurologic/Psychiatric: Reports: depression/anxiety; Denies: dementia, CVA, TIA, other Endocrine: Reports: DM; Denies: hypothyroidism, steroids, other HEENT: Denies: cataract (L), cataract (R), glaucoma, [place] (L), [place] (R), other Hematology/Immune: Reports: DVT - IVC filter in place; Denies: anemia, bleeding disorder, other Musculoskeletal/Integumentary: Reports: DJD - s/p hip arthroplasty Other: obesity - h/o s/p gastric bypass PMH Narrative: admitted with acute abdominal pain, diagnosed with small bowel obstruction. PSxH Narrative: pacemaker, tracheostomy and PEG in and removed, hip arthroplasty, gastric bypass , partial bowel resection. Anesthesia Pre-op Phys. Exam Physician Exam Last Vital Signs Date Time Temp Pulse Resp B/P (MAP) Pulse Ox O2 Delivery O2 Flow Rate FiO2 06/21/18 12:00 98 06/21/18 12:00 98.1 18 131/75 (93) 97 06/21/18 09:00 Room Air Constitutional: NAD Neurologic: CN 2-12 intact Cardiovascular: RRR Respiratory: CTA Gastrointestinal: other - some tenderness on palpation Airway Exam Mallampati Score: Class II MO: limited Neck: stiff ROM: limited Teeth: missing Dentures: no upper, no lower Anesthesia Pre-op A/P Labs Hematology Test 06/21/18 05:30 White Blood Count 10.3 K/UL (4.8-10.8) Red Blood Count 4.47 M/UL (4.20-5.40) Hemoglobin 12.4 G/DL (12.0-16.0) Hematocrit 39.5 % (37.0-47.0) Mean Corpuscular Volume 88 FL (80-99) Mean Corpuscular Hemoglobin 27.8 PG (27.0-31.0) Mean Corpuscular Hemoglobin Concent 31.5 G/DL (32.0-36.0) L Red Cell Distribution Width 14.9 % (11.6-14.8) H Platelet Count 221 K/UL (150-450) Mean Platelet Volume 7.5 FL (6.5-10.1) Neutrophils (%) (Auto) 77.2 % (45.0-75.0) H Lymphocytes (%) (Auto) 15.5 % (20.0-45.0) L Monocytes (%) (Auto) 6.2 % (1.0-10.0) Eosinophils (%) (Auto) 0.1 % (0.0-3.0) Basophils (%) (Auto) 1.1 % (0.0-2.0) Chemistry Test 06/21/18 05:30 Sodium Level 142 MMOL/L (136-145) Potassium Level 3.9 MMOL/L (3.5-5.1) Chloride Level 108 MMOL/L (98-107) H Carbon Dioxide Level 27 MMOL/L (21-32) Anion Gap 7 mmol/L (5-15) Blood Urea Nitrogen 15 mg/dL (7-18) Creatinine 0.7 MG/DL (0.55-1.30) Estimat Glomerular Filtration Rate > 60 mL/min (>60) Glucose Level 132 MG/DL (74-106) H Calcium Level 8.6 MG/DL (8.5-10.1) Risk Assessment & Plan Assessment: ASA 3 E Plan: GA with ETT rapid sequence induction high risk of aspiration. Status Change Before Surgery: No Pre-Antibiotics Drug: as scheduled Caleb Moreno MD Jun 21, 2018 16:20
[2018-06-21] MEDS ORDERED: LR 1000ml 1,000 ML IVLG SCH (16:28)
--- NOTE | 2018-06-21 16:28 | Immediate Post-Op Evaluation ---
Immediate Post-Op Evalulation Immediate Post-Op Evalulation Procedure: Exploratory laparotomy, partial small bowel resection Date of Evaluation: Jun 21, 2018 Time of Evaluation: 16:21 IV Fluids: 800 Blood Products: Albumin 250 Estimated Blood Loss: 50 Urinary Output: 100 Blood Pressure Systolic: 109 Blood Pressure Diastolic: 56 Pulse Rate: 98 Respiratory Rate: 10 O2 Sat by Pulse Oximetry: 98 Temperature (Fahrenheit): 97.5 Pain Score (1-10): 1 Nausea: No Vomiting: No Complications Rapid sequence induction with cricoid pressure was performed, but despite of preventive measures, significant amount of intestinal content regurgitated to upper airways, suction applied, 7.0 ETT placed and also suctioned, CO2 return confirmed, manually ventilated and switched to vent. Short period less than 2 min of desaturation Po2 to 50-60% returned back to normal. Patient Status: no response, ventilated, none Hydration Status: adequate Caleb Moreno MD Jun 21, 2018 16:28
[2018-06-21] MEDS ORDERED: LORazepam Inj 2mg/ml 1ml IV PRN ×2 (16:30→17:27)
[2018-06-21] MEDS ORDERED: DiphenhydrAMINE 50mg/ml Inj IVP PRN (16:30)
--- NOTE | 2018-06-21 16:30 | NUR ---
NURSE NOTES: clinical research monitor displays ST w/ BBB.
--- NOTE | 2018-06-21 16:43 | Internal Med Progress Note ---
Subjective Date of Service: Jun 21, 2018 Physician Name Alcides Velazquez Attending Physician Satinder Brewer MD Current Medications Medications (Trade) Dose Ordered Sig/Sandra Route PRN Reason Start Time Stop Time Status Last Admin Dose Admin Al Hydroxide/Mg Hydroxide (Mylanta II) 30 ml Q6H PRN ORAL dyspepsia 06/19/18 21:15 07/19/18 21:14 Cyclobenzaprine HCl (Flexeril) 10 mg Q8HR ORAL 06/19/18 22:00 07/19/18 21:59 06/20/18 05:14 Dextrose (Dextrose 50%) 25 ml Q30M PRN IV Hypoglycemia 06/19/18 21:15 07/19/18 21:14 Dextrose (Dextrose 50%) 50 ml Q30M PRN IV Hypoglycemia 06/19/18 21:15 07/19/18 21:14 Dextrose/ Electrolytes 1,000 ml @ 100 mls/hr Q10H IV 06/21/18 15:30 07/21/18 15:29 UNV Dextrose/Sodium Chloride 1,000 ml @ 75 mls/hr [id number] IV 06/19/18 21:30 07/19/18 21:29 06/21/18 00:17 Diphenhydramine HCl (Benadryl) 25 mg Q6H PRN ORAL Itching/Pruritis 06/19/18 21:15 07/19/18 21:14 Enoxaparin Sodium (Lovenox) 30 mg DAILY SUBQ 06/22/18 09:00 07/22/18 08:59 UNV Gabapentin (Neurontin) 400 mg THREE TIMES A DAY ORAL 06/21/18 13:00 07/20/18 08:59 Heparin Sodium (Porcine) (Heparin 5000 units/ml) 5,000 units EVERY 12 HOURS SUBQ 06/20/18 09:00 07/20/18 08:59 06/21/18 08:55 Hydromorphone HCl (Dilaudid) 0.5 mg Q3H PRN IVP Pain Score 1-3 06/21/18 15:30 06/28/18 15:29 UNV Hydromorphone HCl (Dilaudid) 1 mg Q3H PRN IVP pain score 4-6 06/21/18 15:30 06/28/18 15:29 UNV Hydromorphone HCl (Dilaudid) 2 mg Q3H PRN IVP pain score 7-10 06/21/18 15:30 06/28/18 15:29 UNV Levothyroxine Sodium (Synthroid) 100 mcg ACBREAKFAST ORAL 06/20/18 06:30 07/20/18 06:29 Lorazepam (Ativan 2mg/ml 1ml) 1 mg Q4H PRN IV agitation 06/19/18 21:15 06/26/18 21:14 06/20/18 00:36 Metoclopramide HCl (Reglan) 10 mg Q6H PRN IVP servere nauasea 06/19/18 21:15 07/19/18 21:14 Nitroglycerin (Ntg) 0.4 mg Q5M X 3 DOSES PRN SL Prn Chest Pain 06/19/18 21:15 07/19/18 21:14 Ondansetron HCl (Zofran) 4 mg Q6H PRN IVP Nausea & Vomiting 06/19/18 21:15 07/19/18 21:14 06/20/18 05:14 Pantoprazole (Protonix) 40 mg DAILY IV 06/20/18 09:00 07/20/18 08:59 06/21/18 08:48 Piperacillin Sod/ Tazobactam Sod 3.375 gm/Sodium Chloride 110 ml @ 27.5 mls/hr EVERY 8 HOURS IVPB 06/21/18 14:15 06/26/18 14:14 Polyethylene Glycol (Miralax) 17 gm HSPRN PRN ORAL Constipation 06/19/18 21:15 07/19/18 21:14 Promethazine HCl 12.5 mg/Sodium Chloride 55.5 ml @ 110 mls/hr Q6H PRN IV Refractory N/V 06/19/18 21:15 07/19/18 21:14 Promethazine HCl 25 mg/Sodium Chloride 56 ml @ 110 mls/hr Q6H PRN IV Refractory N/V 06/19/18 21:15 07/19/18 21:14 Temazepam (Restoril) 15 mg HSPRN PRN ORAL Insomnia 06/19/18 21:15 06/26/18 21:14 06/19/18 22:55 Allergies: Coded Allergies: ACETAMINOPHEN (Verified Allergy, Unknown, itching, 06/21/18) CODEINE (Verified Allergy, Unknown, 06/21/18) Uncoded Allergies: iodoform packing (Allergy, Unknown, redness, swelling, 06/21/18) ROS Limited/Unobtainable: Yes Subjective 68 YO F admitted with abdominal pain. Now small bowel obstruction. S/P exploratory laparotomy and lysis of adhesions 06/21/18. ICU. Intubated and sedated. Cover for Int Jean Carlos-Dr Brewer Objective Last Vital Signs Date Time Temp Pulse Resp B/P (MAP) Pulse Ox O2 Delivery O2 Flow Rate FiO2 06/21/18 16:28 98 10 98 06/21/18 16:11 60 06/21/18 12:00 98.1 131/75 (93) 06/21/18 09:00 Room Air Laboratory Tests Test 06/21/18 05:30 White Blood Count 10.3 K/UL (4.8-10.8) Red Blood Count 4.47 M/UL (4.20-5.40) Hemoglobin 12.4 G/DL (12.0-16.0) Hematocrit 39.5 % (37.0-47.0) Mean Corpuscular Volume 88 FL (80-99) Mean Corpuscular Hemoglobin 27.8 PG (27.0-31.0) Mean Corpuscular Hemoglobin Concent 31.5 G/DL (32.0-36.0) L Red Cell Distribution Width 14.9 % (11.6-14.8) H Platelet Count 221 K/UL (150-450) Mean Platelet Volume 7.5 FL (6.5-10.1) Neutrophils (%) (Auto) 77.2 % (45.0-75.0) H Lymphocytes (%) (Auto) 15.5 % (20.0-45.0) L Monocytes (%) (Auto) 6.2 % (1.0-10.0) Eosinophils (%) (Auto) 0.1 % (0.0-3.0) Basophils (%) (Auto) 1.1 % (0.0-2.0) Sodium Level 142 MMOL/L (136-145) Potassium Level 3.9 MMOL/L (3.5-5.1) Chloride Level 108 MMOL/L (98-107) H Carbon Dioxide Level 27 MMOL/L (21-32) Anion Gap 7 mmol/L (5-15) Blood Urea Nitrogen 15 mg/dL (7-18) Creatinine 0.7 MG/DL (0.55-1.30) Estimat Glomerular Filtration Rate > 60 mL/min (>60) Glucose Level 132 MG/DL (74-106) H Calcium Level 8.6 MG/DL (8.5-10.1) Microbiology Date/Time Source Procedure Growth Status 06/19/18 19:40 Urine,Clean Catch Urine Culture - Preliminary Gram Negative [facility] Resulted Intake and Output 06/20/18 06/21/18 18:59 06:59 Intake Total 300 ml 600 ml Balance 300 ml 600 ml Intake IV Total 300 ml 600 ml # Voids 2 2 Objective PHYSICAL EXAMINATION:. GENERAL: The patient is awake, responsive, and moaning in pain. HEAD AND NECK: Pupils are reactive to light. Extraocular movements are intact. NECK: Supple. No JVD. LUNGS: Good air entry. No wheezes or rhonchi. Coarse breath sounds. Decreased air in bases. ABDOMEN: Soft and not distended. Mildly obese. No rebound tenderness. Decreased bowel sounds. EXTREMITIES: No cyanosis, clubbing, or edema. NEUROLOGICAL: Cranial nerves II through XII grossly intact. The patient moving all extremities. RECTAL: Refused and deferred. GENITOURINARY: Refused and deferred. Assessment/Plan Assessment/Plan ASSESSMENT: 1. Abdominal pain associated with nausea and vomiting, Small bowel obstruction. 2. History of COPD. 3. Congestive heart failure. 4. Sick sinus syndrome with status post pacemaker. 5. Hypothyroidism. 6. Diabetes type 2. 7. Interstitial lung disease. 8. History of PE, status post IVC filter. 9. The patient has a history of acute kidney injury as well. PLAN: ICU statius. S/P expl lap and lysis of adhesions on 06/21/[address] Vigil General Surgery; Dr. Herrera, Pulmonary Critical Care; and Dr. Mesa from Gastroenterology. Code status is Full Code. Keep the patient NPO. IV hydration. We will monitor laboratory closely. DVT prophylaxis with heparin subcutaneous. Alcides Velazquez MD Jun 21, 2018 16:43
[2018-06-21 17:15] LABS: HEMATOCRIT 36.9 % (37.0-47.0); HEMOGLOBIN 11.6 G/DL (12.0-16.0); MEAN CORPUSCULAR VOLUME 88 FL (80-99); PLATELET COUNT 205 K/UL (150-450); RED BLOOD COUNT 4.22 M/UL (4.20-5.40); RED CELL DISTRIBUTION WIDTH 14.6 % (11.6-14.8); WHITE BLOOD COUNT 2.2 K/UL (4.8-10.8)
[2018-06-21] MEDS ORDERED: D5 1/2NS 1000ml IV ONE (17:19)
[2018-06-21] MEDS ORDERED: Mylanta II UD 30ml ORAL PRN (17:25)
[2018-06-21] MEDS ORDERED: Nitroglycerin Subl 0.4mg tab SL PRN (17:27)
[2018-06-21 17:30] LABS: ANION GAP 5 mmol/L (5-15); BLOOD UREA NITROGEN 13 mg/dL (7-18); CALCIUM 7.8 MG/DL (8.5-10.1); CARBON DIOXIDE 28 MMOL/L (21-32); CHLORIDE 110 MMOL/L (98-107); CREATININE 0.7 MG/DL (0.55-1.30); POTASSIUM 4.4 MMOL/L (3.5-5.1); SODIUM 143 MMOL/L (136-145)
[2018-06-21] MEDS ORDERED: Promethazine HCl 12.5 MG in NS 55 ML IV PRN (17:38)
[2018-06-21] MEDS ORDERED: Promethazine HCl 25 MG in NS 55 ML IV PRN (17:39)
--- NOTE | 2018-06-21 18:00 | NUR ---
NURSE NOTES: Per Dr Herrera's order, vent setting changed to AC16, and TV600. Will process and follow. Sputum culture collected. Chest x-ray taken. Vital signs are stable. Pt is resting, mildly sedated/drowsy.
--- NOTE | 2018-06-21 18:30 | NUR ---
NURSE NOTES: Pt was cleaned and repositioned. Oral care done. Post-surgical dressing on mid-abdomen is dry/intact. Driscoll catheter is draining clear/yellow urine with output of 50-60ml/hour. Pt is tolerating vent settings at AC16, TV600, FIO2 50%, with O2sat at 97-99%, with no respiratory distress. Lung sounds are clear. Hypoactive bowel sounds present. Sputum culture collected. Right femoral TLC is infusing D5 0.45%NS at 75mL/hour. NG tube is connected to low suction per OR/MD order, draining small amount of blood/tinged gastric/output. Per radiologist, who contacted charge nurse, RT needs to reposition/slightly pull back on ETT tube by 3cm. RT notified. Pt is opening eyes from time to time, however still mildly sedated/drowsy. Will continue to monitor.
--- NOTE | 2018-06-21 18:52 | NUR ---
RESPIRATORY NOTE: Received pt. on 840 vent. Vent settings are: A/C rate of 16, Vt 600, FI02 50%, PEEP +2. No respiratory distress noted, pt. Sp02 @ 99%. Ambu bag @ BS. Vent plugged on red outlet. Will continue to monitor pt.
--- NOTE | 2018-06-21 19:30 | NUR ---
HAND-OFF: Report given to Luis SIMS. Pt is resting in bed in stable condition. Endorsed plan of care.
--- NOTE | 2018-06-21 19:45 | NUR ---
NURSE NOTES: PATIENT LETHARGIC, ON ETT TO VENT, AC 16/ TV 600/ FIO2 50%/ PEEP 2, O2 SATURATION OVER 97% NOTED, PACEMAKER TO LEFT CHEST, NGT TO LEFT NARES, INTACT AND LOWER INTERMITTENT SUCTION STATUS, KEPT HOB OVER 30 DEGREE, ABDOMEN SOFT, ABDOMINAL SURGERY DRESSING CLEAN AND DRIED, NO BLEEDING NOTED, NO BOWEL MOVEMENT STATUS, F/C INTACT AND PATENT, DARK YELLOW URINE OUTED GRAVITY, TLC TO RIGHT FEMORAL INTACT AND PATENT, ONGOING D5W 1/2NS AT 75ML/HR VIA TLC, PERIPHERAL LINE TO RIGHT HAND 22G AND LEFT UPPER ARM 20G INTACT AND PATENT, MADE LOWER BED POSITION, PROVIDED CALL LIGHT WITHIN REACH, WILL CONTINUE TO MONITOR.
--- NOTE | 2018-06-21 20:00 | Operative Note - Dictated ---
DATE OF OPERATION: 06/21/2018 PREOPERATIVE DIAGNOSIS: Small bowel obstruction. POSTOPERATIVE DIAGNOSIS: Small bowel obstruction. OPERATION: 1. Exploratory laparotomy. 2. Lysis of adhesions. 3. Small bowel resection and primary anastomosis. COMPLICATIONS: None. SURGEON: Moshe Bryan M.D. SALES REPRESENTATIVE [employer] SU[employer]IES: Farncisco Noble M.D. ANESTHESIA: General with endotracheal tube. ANESTHESIOLOGIST: Caleb Moreno M.D. INDICATION: This is a 68-year-old female with a history of gastric bypass, revision of the gastric bypass, and ventral herniorrhaphy presented with vomiting and abdominal pain. Physical examination showed mild tenderness of the abdomen and the CAT scan was suggestive of small bowel obstruction. Yesterday, the patient underwent a Gastrografin small bowel followthrough. After 4.5 hours, the Gastrografin reached the area of the obstruction and had a small amount passed through the stricture. This morning, a KUB was obtained, which showed that the Gastrografin was in the splenic flexure, but it did not reach the rectum and the patient did not have a bowel movement. The radiologist felt that the patient had a high-grade partial small bowel obstruction, but the patient had tenderness of the abdomen, in fact severe tenderness especially on the left side of the abdomen, so the decision was made for exploratory laparotomy. DESCRIPTION OF PROCEDURE: The patient was placed supine on the operating table and general anesthesia was induced. I have to mention that it was a difficult induction. During the induction, the patient vomited, but finally the anesthesiologist was able to intubate. After the intubation, the abdomen was properly prepped and draped. A midline incision was given from the epigastrium to below the umbilicus through the old incision. This incision was carried sharply through the subcutaneous tissue and the fascia. It was noticed that the patient had extensive adhesion on the omentum right under that incision, so this adhesion was gradually released. There was adhesion of the bowel especially on the left side, which is very meticulously released. Exploration was performed and this was noticed about 15 cm from the jejunojejunal anastomosis the patient had the area, which had severe adhesion and I think was severely obstructed. This area was released. It was noticed that the bowel was damaged, so the decision was made for resection of this area. The damaged part of the small bowel was resected between the VIVEK stapler. An end-to-end functional anastomosis was made with the VIVEK stapler. Patent anastomosis was obtained. Bowel was returned into the intraperitoneal cavity. The intraperitoneal cavity was irrigated with antibiotic solution and then the incision was approximated with running suture of #1 Prolene for the fascia and multiple skin [place]. The patient tolerated the procedure very well and was transferred to ICU still intubated. The sponge and needle count correct. Estimated blood loss 10 mL. Condition of the patient at the end of the procedure was stable. Moshe Bryan M.D. DR: SUJIT JOB#: [id number] CC:
[2018-06-21] MEDS ORDERED: Miralax 17gm pkt ORAL PRN (21:15)
[2018-06-21] MEDS: Piperacillin/Tazobactam 3.375 GM in NS 110 ML IVPB SCH (21:42)
--- NOTE | 2018-06-21 21:52 | NUR ---
NURSE NOTES: CALLED DR. SOLANO REGARDING SBP BELOW 90MMHG THAT LEFT MESSAGE.
--- NOTE | 2018-06-21 22:35 | NUR ---
NURSE NOTES: CALLED DR. SANTANA REGARDING SBP BELOW 90MMHG THAT DR. LEGGETT WAS AWARE, RECEIVED NEW ORDER AND CARRY OUT.
--- NOTE | 2018-06-21 22:54 | NUR ---
NURSE NOTES: CALLED BACK FROM DR. CONDE, RECEIVED NEW ORDER AND CARRIED OUT.
[2018-06-22] VITALS (33 sets, daily range): BP systolic 73–136; BP diastolic 45–86
--- NOTE | 2018-06-22 00:57 | NUR ---
NURSE NOTES: CALLED DR. SOLANO REGARDING SBP BELOW 80MMHG THAT LEFT MESSAGE.
--- NOTE | 2018-06-22 01:40 | NUR ---
NURSE NOTES: CALLED DR. CONDE REGARDING LOWER BP 75/48 THAT MD WAS AWARE, RECEIVED NEW ORDER AND CARRIED OUT.
--- NOTE | 2018-06-22 01:51 | NUR ---
NURSE NOTES: STARTED LEVOPHED DRIP 2MCG/MIN VIA RIGHT FEMORAL TLC PER PROTOCOLS, WILL CONTINUE TO MONITOR.
--- NOTE | 2018-06-22 03:40 | NUR ---
NURSE NOTES: MORNING CARE AND ORAL CARE WAS DONE, NO BOWEL MOVEMENT.
--- NOTE | 2018-06-22 05:30 | NUR ---
NURSE NOTES: PATIENT DENIED PAIN OR DISTRESS AT THIS TIME.
[2018-06-22] MEDS: Piperacillin/Tazobactam 3.375 GM in NS 110 ML IVPB SCH ×3 (05:48→21:41)
[2018-06-22 05:55] LABS: HEMATOCRIT 32.9 % (37.0-47.0); HEMOGLOBIN 10.4 G/DL (12.0-16.0); MEAN CORPUSCULAR VOLUME 89 FL (80-99); PLATELET COUNT 193 K/UL (150-450); RED BLOOD COUNT 3.72 M/UL (4.20-5.40); RED CELL DISTRIBUTION WIDTH 14.5 % (11.6-14.8); WHITE BLOOD COUNT 11.1 K/UL (4.8-10.8)
[2018-06-22] MEDS: Cyclobenzaprine 10mg Tab ORAL SCH ×3 (06:00→21:41)
[2018-06-22 06:14] LABS: ANION GAP 9 mmol/L (5-15); BLOOD UREA NITROGEN 13 mg/dL (7-18); CALCIUM 7.7 MG/DL (8.5-10.1); CARBON DIOXIDE 23 MMOL/L (21-32); CHLORIDE 111 MMOL/L (98-107); CREATININE 0.7 MG/DL (0.55-1.30); POTASSIUM 3.1 MMOL/L (3.5-5.1); SODIUM 143 MMOL/L (136-145)
--- NOTE | 2018-06-22 07:28 | NUR ---
HAND-OFF: Report given to LEVI WALTERS.
[2018-06-22] MEDS: D5 1/2NS 1,000 ML IV SCH ×2 (07:30→20:48)
--- NOTE | 2018-06-22 08:00 | NUR ---
NURSE NOTES: Received pt from LEVI Smith. PATIENT LETHARGIC, ON ETT TO VENT, AC 16/ TV 600/ FIO2 50%/ PEEP 2, O2 SATURATION OVER 97% NOTED, PACEMAKER TO LEFT CHEST, NGT TO LEFT NARES, INTACT AND LOWER INTERMITTENT SUCTION STATUS, KEPT HOB OVER 30 DEGREE, ABDOMEN SOFT, ABDOMINAL SURGERY DRESSING CLEAN AND DRIED, NO BLEEDING NOTED, NO BOWEL MOVEMENT STATUS, F/C INTACT AND PATENT, DARK YELLOW URINE OUTED GRAVITY, TLC TO RIGHT FEMORAL INTACT AND PATENT, ONGOING D5W 1/2NS AT 75ML/HR VIA TLC, PERIPHERAL LINE TO RIGHT HAND 22G AND LEFT UPPER ARM 20G INTACT AND PATENT, MADE LOWER BED POSITION, PROVIDED CALL LIGHT WITHIN REACH, WILL CONTINUE TO MONITOR.
--- NOTE | 2018-06-22 08:11 | NUR ---
RESPIRATORY NOTE: Received pt on charted settings. No respiratory distress noted. ETT secured with anchor fast. Vent plugged into red outlet. Ambu bag at bedside. Alarms set and audible. Will continue to monitor.
--- NOTE | 2018-06-22 08:57 | 48 Hour Post Anesthesia Eval ---
Post Anesthesia Evaluation Procedure: Exploratory laparotomy, partial small bowel resection Date of Evaluation: Jun 22, 2018 Time of Evaluation: 08:48 Blood Pressure Systolic: 121 0: 58 Pulse Rate: 87 Respiratory Rate: 18 Temperature (Fahrenheit): 97.6 O2 Sat by Pulse Oximetry: 98 Airway: other - intubated on vent support Nausea: No Vomiting: No Pain Intensity: 2 Hydration Status: adequate Cardiopulmonary Status: on minimal dose of Levophed, will discontinue, I/V fluids at 100 cc/hr, wide awake follows commands will initiate weaning of the vent. Po2 numbers are reasonable, bilateral breath sounds clear. Mental Status/LOC: patient returned to baseline Follow-up Care/Observations: n/a Post-Anesthesia Complications: none. Follow-up care needed: N/A Caleb Moreno MD Jun 22, 2018 08:57
[2018-06-22] MEDS ORDERED: Enoxaparin 30mg Inj SUBQ SCH ×2 (09:00)
--- NOTE | 2018-06-22 09:35 | NUR ---
RD ASSESSMENT & RECOMMENDATIONS SEE CARE ACTIVITY FOR COMPLETE ASSESSMENT DAILY ESTIMATED NEEDS: Needs based on Surgery, critical care 61.4kg 22-30 kcals/kg 1705-2643 total kcals 1-2 g protein/kg 61-123 g total protein 25-30 mL/kg 5296-5120 total fluid mLs NUTRITION DIAGNOSIS: 1) Altered GI fxn r/t SBO as evidenced by s/p ex lap w/ bowel resection and lysis of adhesions, pt remains NPO. 2) Swallowing difficulty r/t respiratory status as evidenced by pt remains orally intubated from ex lap, NPO. 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
[2018-06-22] MEDS: Pantoprazole Inj IV SCH (09:39)
[2018-06-22] MEDS: Heparin 5000 units/ml inj SUBQ SCH ×2 (09:40→20:49)
--- NOTE | 2018-06-22 10:00 | NUR ---
NURSE NOTES: Turned and repositioned pt. no s/s of acute distress. will continue plan of care.
--- NOTE | 2018-06-22 10:44 | NUR ---
CASE MANAGEMENT: REVIEW SI: ACUTE ON CHRONIC RESP FAILURE . SMALL BOWEL OBSTRUCTION EX LAP / SMALL BOWEL RESECTION 06/21 T 100.0 HR 107 RR 17 BP 73/45 SAT 96% MECH VENT FIO2 60 WBC 11.1 H/H 10.4.32.9 K 3.1 IS: LEVOPHED GTT ZOSYN IV Q8HT NPO ICU STATUS DCP: PATIENT IS FROM HOME
--- NOTE | 2018-06-22 10:49 | General Surgery Progress Note ---
General Surgery-Progress Note Subjective Procedure Performed ex lap, lysis of adhesions and small bowel resection with primary anastomosis Objective Last 24 Hour Vital Signs Date Time Temp Pulse Resp B/P (MAP) Pulse Ox O2 Delivery O2 Flow Rate FiO2 06/22/18 09:27 100 06/22/18 09:25 104 25 50 06/22/18 08:57 87 18 98 06/22/18 07:31 95 16 60 06/22/18 07:00 94 16 118/63 (81) 99 06/22/18 07:00 118/63 06/22/18 06:30 97 16 136/68 (90) 99 06/22/18 06:30 136/68 06/22/18 06:00 95 16 128/71 (90) 99 06/22/18 06:00 128/71 06/22/18 05:30 98 16 86/46 (59) 99 06/22/18 05:24 99 16 60 06/22/18 05:00 97 16 120/71 (87) 99 06/22/18 05:00 120/71 06/22/18 04:30 103 16 127/86 (100) 99 06/22/18 04:00 98.9 110 16 109/53 (71) 98 06/22/18 04:00 Mechanical Ventilator 06/22/18 04:00 110 06/22/18 04:00 109/53 06/22/18 03:36 93 16 60 06/22/18 03:30 94 16 112/53 (72) 99 06/22/18 03:00 119/58 06/22/18 03:00 91 16 119/58 (78) 99 06/22/18 02:30 99 16 127/61 (83) 99 06/22/18 02:00 94 16 107/56 (73) 98 06/22/18 02:00 107/56 06/22/18 01:55 84/48 06/22/18 01:55 94 16 84/48 (60) 98 06/22/18 01:51 74/45 06/22/18 01:45 97 16 74/45 (55) 97 06/22/18 01:30 98 16 73/45 (54) 98 06/22/18 01:23 101 16 60 06/22/18 01:00 100 16 77/46 (56) 97 06/22/18 00:30 107 16 79/47 (58) 97 06/22/18 00:00 100.0 107 17 86/55 (65) 96 06/22/18 00:00 106 06/22/18 00:00 Mechanical Ventilator 06/21/18 23:30 106 18 84/53 (63) 97 06/21/18 23:10 99 16 60 06/21/18 23:00 107 18 90/56 (67) 96 06/21/18 22:00 118 16 82/55 (64) 96 06/21/18 21:23 118 16 60 06/21/18 21:00 118 16 89/52 (64) 97 06/21/18 21:00 50 06/21/18 20:30 118 16 97/58 (71) 98 06/21/18 20:00 121 06/21/18 20:00 Mechanical Ventilator 06/21/18 20:00 99.1 121 16 89/68 (75) 97 06/21/18 19:01 97.5 06/21/18 19:00 125 16 97/61 (73) 96 06/21/18 18:56 124 16 60 06/21/18 18:30 125 17 123/75 (91) 97 06/21/18 18:00 98.6 119 16 107/58 (74) 96 06/21/18 17:30 117 19 124/76 (92) 95 06/21/18 17:30 118 18 60 06/21/18 17:00 117 21 111/68 (82) 97 06/21/18 16:45 111 16 118/70 (86) 97 06/21/18 16:30 107 20 117/64 (81) 96 06/21/18 16:28 98 10 98 06/21/18 16:15 107 16 110/59 (76) 96 06/21/18 16:11 72 10 60 06/21/18 16:00 107 06/21/18 16:00 50 06/21/18 16:00 98.8 106 10 105/61 (76) 97 06/21/18 16:00 Mechanical Ventilator 06/21/18 12:00 98 06/21/18 12:00 98.1 93 18 131/75 (93) 97 I&O Intake and Output 06/21/18 06/22/18 19:00 07:00 Intake Total 1353 ml 1644.75 ml Output Total 200 ml 645 ml Balance 1153 ml 999.75 ml Intake IV Total 1353 ml 1644.75 ml Output Urine Total 200 ml 605 ml Gastric Drainage Total 40 ml Dressing: dry Drains: none Respiratory: clear Abdomen: soft, flat, tenderness, absent bowel sounds Extremities: no tenderness Laboratory Tests Test 06/21/18 17:00 06/22/18 05:30 White Blood Count 2.2 K/UL (4.8-10.8) #L 11.1 K/UL (4.8-10.8) #H Red Blood Count 4.22 M/UL (4.20-5.40) 3.72 M/UL (4.20-5.40) L Hemoglobin 11.6 G/DL (12.0-16.0) L 10.4 G/DL (12.0-16.0) L Hematocrit 36.9 % (37.0-47.0) L 32.9 % (37.0-47.0) L Mean Corpuscular Volume 88 FL (80-99) 89 FL (80-99) Mean Corpuscular Hemoglobin 27.5 PG (27.0-31.0) 28.0 PG (27.0-31.0) Mean Corpuscular Hemoglobin Concent 31.5 G/DL (32.0-36.0) L 31.6 G/DL (32.0-36.0) L Red Cell Distribution Width 14.6 % (11.6-14.8) 14.5 % (11.6-14.8) Platelet Count 205 K/UL (150-450) 193 K/UL (150-450) Mean Platelet Volume 6.6 FL (6.5-10.1) 8.4 FL (6.5-10.1) Neutrophils (%) (Auto) % (45.0-75.0) % (45.0-75.0) Lymphocytes (%) (Auto) % (20.0-45.0) % (20.0-45.0) Monocytes (%) (Auto) % (1.0-10.0) % (1.0-10.0) Eosinophils (%) (Auto) % (0.0-3.0) % (0.0-3.0) Basophils (%) (Auto) % (0.0-2.0) % (0.0-2.0) Differential Total Cells Counted 100 Neutrophils % (Manual) 55 % (45-75) Lymphocytes % (Manual) 36 % (20-45) Monocytes % (Manual) 3 % (1-10) Eosinophils % (Manual) 1 % (0-3) Basophils % (Manual) 0 % (0-2) Band Neutrophils 5 % (0-8) Platelet Estimate Adequate Platelet Morphology Normal Hypochromasia 1+ Anisocytosis 1+ Sodium Level 143 MMOL/L (136-145) 143 MMOL/L (136-145) Potassium Level 4.4 MMOL/L (3.5-5.1) 3.1 MMOL/L (3.5-5.1) L Chloride Level 110 MMOL/L (98-107) H 111 MMOL/L (98-107) H Carbon Dioxide Level 28 MMOL/L (21-32) 23 MMOL/L (21-32) Anion Gap 5 mmol/L (5-15) 9 mmol/L (5-15) Blood Urea Nitrogen 13 mg/dL (7-18) 13 mg/dL (7-18) Creatinine 0.7 MG/DL (0.55-1.30) 0.7 MG/DL (0.55-1.30) Estimat Glomerular Filtration Rate > 60 mL/min (>60) > 60 mL/min (>60) Glucose Level 129 MG/DL (74-106) H 133 MG/DL (74-106) H Calcium Level 7.8 MG/DL (8.5-10.1) L 7.7 MG/DL (8.5-10.1) L Assessment Additional Comments S/P bowel resection Plan Additional Comments Continue as before require TPN Moshe Bryan MD Jun 22, 2018 10:49
[2018-06-22] MEDS ORDERED: Potassium Chloride 40 MEQ in Sodium Chloride 550 ML IVPB ONE (11:45)
--- NOTE | 2018-06-22 11:49 | Pulmonolgy Critical Care Note ---
Critical Care - Asmt/Plan Problems: (1) Respiratory failure, acute (2) S/P small bowel resection (3) COPD (chronic obstructive pulmonary disease) (4) Diabetes mellitus (5) CHF (congestive heart failure) (6) Interstitial lung disease (7) Pacemaker Respiratory: monitor respiratory rate, adjust FIO2, CXR Cardiac: continue to monitor HR/BP Renal: F/U I&O, check electrolytes Infectious Disease: check cultures Gastrointestinal: hold feedings Endocrine: monitor blood sugar, continue sliding scale insulin Hematologic: monitor H/H, transfuse if hgb<8.5 Neurologic: PRN Ativan, PRN Morphine, keep patient comfortable Notes Reviewed: make up editor, renal Discussed with: nurses, consultants, major case detectiveused car manager - Objective Last 24 Hour Vital Signs Date Time Temp Pulse Resp B/P (MAP) Pulse Ox O2 Delivery O2 Flow Rate FiO2 06/22/18 11:14 109 25 50 06/22/18 10:26 97.6 06/22/18 09:27 100 06/22/18 09:25 104 25 50 06/22/18 08:57 87 18 98 06/22/18 07:31 95 16 60 06/22/18 07:00 94 16 118/63 (81) 99 06/22/18 07:00 118/63 06/22/18 06:30 97 16 136/68 (90) 99 06/22/18 06:30 136/68 06/22/18 06:00 95 16 128/71 (90) 99 06/22/18 06:00 128/71 06/22/18 05:30 98 16 86/46 (59) 99 06/22/18 05:24 99 16 60 06/22/18 05:00 97 16 120/71 (87) 99 06/22/18 05:00 120/71 06/22/18 04:30 103 16 127/86 (100) 99 06/22/18 04:00 98.9 110 16 109/53 (71) 98 06/22/18 04:00 Mechanical Ventilator 06/22/18 04:00 110 06/22/18 04:00 109/53 06/22/18 03:36 93 16 60 06/22/18 03:30 94 16 112/53 (72) 99 06/22/18 03:00 119/58 06/22/18 03:00 91 16 119/58 (78) 99 06/22/18 02:30 99 16 127/61 (83) 99 06/22/18 02:00 94 16 107/56 (73) 98 06/22/18 02:00 107/56 06/22/18 01:55 84/48 06/22/18 01:55 94 16 84/48 (60) 98 06/22/18 01:51 74/45 06/22/18 01:45 97 16 74/45 (55) 97 06/22/18 01:30 98 16 73/45 (54) 98 06/22/18 01:23 101 16 60 06/22/18 01:00 100 16 77/46 (56) 97 06/22/18 00:30 107 16 79/47 (58) 97 06/22/18 00:00 100.0 107 17 86/55 (65) 96 06/22/18 00:00 106 06/22/18 00:00 Mechanical Ventilator 06/21/18 23:30 106 18 84/53 (63) 97 06/21/18 23:10 99 16 60 06/21/18 23:00 107 18 90/56 (67) 96 06/21/18 22:00 118 16 82/55 (64) 96 06/21/18 21:23 118 16 60 06/21/18 21:00 118 16 89/52 (64) 97 06/21/18 21:00 50 06/21/18 20:30 118 16 97/58 (71) 98 06/21/18 20:00 121 06/21/18 20:00 Mechanical Ventilator 06/21/18 20:00 99.1 121 16 89/68 (75) 97 06/21/18 19:01 97.5 06/21/18 19:00 125 16 97/61 (73) 96 06/21/18 18:56 124 16 60 06/21/18 18:30 125 17 123/75 (91) 97 06/21/18 18:00 98.6 119 16 107/58 (74) 96 06/21/18 17:30 117 19 124/76 (92) 95 06/21/18 17:30 118 18 60 06/21/18 17:00 117 21 111/68 (82) 97 06/21/18 16:45 111 16 118/70 (86) 97 06/21/18 16:30 107 20 117/64 (81) 96 06/21/18 16:28 98 10 98 06/21/18 16:15 107 16 110/59 (76) 96 06/21/18 16:11 72 10 60 06/21/18 16:00 107 06/21/18 16:00 50 06/21/18 16:00 98.8 106 10 105/61 (76) 97 06/21/18 16:00 Mechanical Ventilator 06/21/18 12:00 98 06/21/18 12:00 98.1 93 18 131/75 (93) 97 Status: awake Condition: critical HEENT: atraumatic Lungs: rales, rhonchi Heart: HR/BP stable Abdomen: soft, non-tender Extremities: no C/C/E, edema Micro: Microbiology Date/Time Source Procedure Growth Status 06/19/18 19:40 Urine,Clean Catch Urine Culture - Final Klebsiella Pneumoniae Complete Critical Care - Subjective ICU Day: 2 Interval Events: Underwent laparotomy yesterday with Lysis of adhesions and Small bowel resection and primary anastomosis. FI02: 50 Vent Support Breath Rate: 16 Vent Support Mode: CPAP Vent Tidal Volume: 600 Sputum Amount: None PEEP: 2.0 PIP: 11 I&O: Intake and Output 06/21/18 06/22/18 19:00 07:00 Intake Total 1353 ml 1644.75 ml Output Total 200 ml 645 ml Balance 1153 ml 999.75 ml Intake IV Total 1353 ml 1644.75 ml Output Urine Total 200 ml 605 ml Gastric Drainage Total 40 ml CXR: Pulmonary edema ET-Tube: 7.0 ET Position: 22 Labs: Laboratory Tests Test 06/21/18 17:00 06/22/18 05:30 White Blood Count 2.2 K/UL (4.8-10.8) #L 11.1 K/UL (4.8-10.8) #H Red Blood Count 4.22 M/UL (4.20-5.40) 3.72 M/UL (4.20-5.40) L Hemoglobin 11.6 G/DL (12.0-16.0) L 10.4 G/DL (12.0-16.0) L Hematocrit 36.9 % (37.0-47.0) L 32.9 % (37.0-47.0) L Mean Corpuscular Volume 88 FL (80-99) 89 FL (80-99) Mean Corpuscular Hemoglobin 27.5 PG (27.0-31.0) 28.0 PG (27.0-31.0) Mean Corpuscular Hemoglobin Concent 31.5 G/DL (32.0-36.0) L 31.6 G/DL (32.0-36.0) L Red Cell Distribution Width 14.6 % (11.6-14.8) 14.5 % (11.6-14.8) Platelet Count 205 K/UL (150-450) 193 K/UL (150-450) Mean Platelet Volume 6.6 FL (6.5-10.1) 8.4 FL (6.5-10.1) Neutrophils (%) (Auto) % (45.0-75.0) % (45.0-75.0) Lymphocytes (%) (Auto) % (20.0-45.0) % (20.0-45.0) Monocytes (%) (Auto) % (1.0-10.0) % (1.0-10.0) Eosinophils (%) (Auto) % (0.0-3.0) % (0.0-3.0) Basophils (%) (Auto) % (0.0-2.0) % (0.0-2.0) Differential Total Cells Counted 100 Neutrophils % (Manual) 55 % (45-75) Lymphocytes % (Manual) 36 % (20-45) Monocytes % (Manual) 3 % (1-10) Eosinophils % (Manual) 1 % (0-3) Basophils % (Manual) 0 % (0-2) Band Neutrophils 5 % (0-8) Platelet Estimate Adequate Platelet Morphology Normal Hypochromasia 1+ Anisocytosis 1+ Sodium Level 143 MMOL/L (136-145) 143 MMOL/L (136-145) Potassium Level 4.4 MMOL/L (3.5-5.1) 3.1 MMOL/L (3.5-5.1) L Chloride Level 110 MMOL/L (98-107) H 111 MMOL/L (98-107) H Carbon Dioxide Level 28 MMOL/L (21-32) 23 MMOL/L (21-32) Anion Gap 5 mmol/L (5-15) 9 mmol/L (5-15) Blood Urea Nitrogen 13 mg/dL (7-18) 13 mg/dL (7-18) Creatinine 0.7 MG/DL (0.55-1.30) 0.7 MG/DL (0.55-1.30) Estimat Glomerular Filtration Rate > 60 mL/min (>60) > 60 mL/min (>60) Glucose Level 129 MG/DL (74-106) H 133 MG/DL (74-106) H Calcium Level 7.8 MG/DL (8.5-10.1) L 7.7 MG/DL (8.5-10.1) L Quincy Herrera MD Jun 22, 2018 11:49
--- NOTE | 2018-06-22 12:34 | General Progress Note ---
Assessment/Plan Assessment/Plan Assessment - SBO - s/p exlap - abd pain Recommendations - NPO - post op care - Surgical follow up - IVF - Follow exam Subjective Allergies: Coded Allergies: ACETAMINOPHEN (Verified Allergy, Unknown, itching, 06/21/18) CODEINE (Verified Allergy, Unknown, 06/21/18) Uncoded Allergies: iodoform packing (Allergy, Unknown, redness, swelling, 06/21/18) Subjective above noted now in ICU post op ex lap c/o some abd pain Objective Last 24 Hour Vital Signs Date Time Temp Pulse Resp B/P (MAP) Pulse Ox O2 Delivery O2 Flow Rate FiO2 06/22/18 12:00 106 16 99/69 (79) 99 06/22/18 12:00 107 06/22/18 12:00 Mechanical Ventilator 06/22/18 11:14 109 25 50 06/22/18 11:00 98.6 110 16 110/63 (79) 98 06/22/18 10:26 97.6 06/22/18 10:00 105 16 118/65 (82) 99 06/22/18 09:27 100 06/22/18 09:25 104 25 50 06/22/18 09:00 108 16 112/63 (79) 99 06/22/18 08:57 87 18 98 06/22/18 08:00 108 06/22/18 08:00 Mechanical Ventilator 06/22/18 08:00 98.2 110 16 110/53 (72) 98 06/22/18 07:31 95 16 60 06/22/18 07:00 94 16 118/63 (81) 99 06/22/18 07:00 118/63 06/22/18 06:30 97 16 136/68 (90) 99 06/22/18 06:30 136/68 06/22/18 06:00 95 16 128/71 (90) 99 06/22/18 06:00 128/71 06/22/18 05:30 98 16 86/46 (59) 99 06/22/18 05:24 99 16 60 06/22/18 05:00 97 16 120/71 (87) 99 06/22/18 05:00 120/71 06/22/18 04:30 103 16 127/86 (100) 99 06/22/18 04:00 98.9 110 16 109/53 (71) 98 06/22/18 04:00 Mechanical Ventilator 06/22/18 04:00 110 06/22/18 04:00 109/53 06/22/18 03:36 93 16 60 06/22/18 03:30 94 16 112/53 (72) 99 06/22/18 03:00 119/58 06/22/18 03:00 91 16 119/58 (78) 99 06/22/18 02:30 99 16 127/61 (83) 99 06/22/18 02:00 94 16 107/56 (73) 98 06/22/18 02:00 107/56 06/22/18 01:55 84/48 06/22/18 01:55 94 16 84/48 (60) 98 06/22/18 01:51 74/45 06/22/18 01:45 97 16 74/45 (55) 97 06/22/18 01:30 98 16 73/45 (54) 98 06/22/18 01:23 101 16 60 06/22/18 01:00 100 16 77/46 (56) 97 06/22/18 00:30 107 16 79/47 (58) 97 06/22/18 00:00 100.0 107 17 86/55 (65) 96 06/22/18 00:00 106 06/22/18 00:00 Mechanical Ventilator 06/21/18 23:30 106 18 84/53 (63) 97 06/21/18 23:10 99 16 60 06/21/18 23:00 107 18 90/56 (67) 96 06/21/18 22:00 118 16 82/55 (64) 96 06/21/18 21:23 118 16 60 06/21/18 21:00 118 16 89/52 (64) 97 06/21/18 21:00 50 06/21/18 20:30 118 16 97/58 (71) 98 06/21/18 20:00 121 06/21/18 20:00 Mechanical Ventilator 06/21/18 20:00 99.1 121 16 89/68 (75) 97 06/21/18 19:01 97.5 06/21/18 19:00 125 16 97/61 (73) 96 06/21/18 18:56 124 16 60 06/21/18 18:30 125 17 123/75 (91) 97 06/21/18 18:00 98.6 119 16 107/58 (74) 96 06/21/18 17:30 117 19 124/76 (92) 95 06/21/18 17:30 118 18 60 06/21/18 17:00 117 21 111/68 (82) 97 06/21/18 16:45 111 16 118/70 (86) 97 06/21/18 16:30 107 20 117/64 (81) 96 06/21/18 16:28 98 10 98 06/21/18 16:15 107 16 110/59 (76) 96 06/21/18 16:11 72 10 60 06/21/18 16:00 107 06/21/18 16:00 50 06/21/18 16:00 98.8 106 10 105/61 (76) 97 06/21/18 16:00 Mechanical Ventilator Intake and Output 06/21/18 06/22/18 19:00 07:00 Intake Total 1353 ml 1644.75 ml Output Total 200 ml 645 ml Balance 1153 ml 999.75 ml Intake IV Total 1353 ml 1644.75 ml Output Urine Total 200 ml 605 ml Gastric Drainage Total 40 ml Laboratory Tests 06/21/18 17:00: White Blood Count 2.2#L, Red Blood Count 4.22, Hemoglobin 11.6L, Hematocrit 36.9L, Mean Corpuscular Volume 88, Mean Corpuscular Hemoglobin 27.5, Mean Corpuscular Hemoglobin Concent 31.5L, Red Cell Distribution Width 14.6, Platelet Count 205, Mean Platelet Volume 6.6, Neutrophils (%) (Auto) , Lymphocytes (%) (Auto) , Monocytes (%) (Auto) , Eosinophils (%) (Auto) , Basophils (%) (Auto) , Differential Total Cells Counted 100, Neutrophils % ( Manual) 55, Lymphocytes % (Manual) 36, Monocytes % (Manual) 3, Eosinophils % ( Manual) 1, Basophils % (Manual) 0, Band Neutrophils 5, Platelet Estimate Adequate, Platelet Morphology Normal, Hypochromasia 1+, Anisocytosis 1+, Sodium Level 143, Potassium Level 4.4, Chloride Level 110H, Carbon Dioxide Level 28, Anion Gap 5, Blood Urea Nitrogen 13, Creatinine 0.7, Estimat Glomerular Filtration Rate > 60, Glucose Level 129H, Calcium Level 7.8L 06/22/18 05:30: White Blood Count 11.1#H, Red Blood Count 3.72L, Hemoglobin 10.4L, Hematocrit 32.9L, Mean Corpuscular Volume 89, Mean Corpuscular Hemoglobin 28.0, Mean Corpuscular Hemoglobin Concent 31.6L, Red Cell Distribution Width 14.5, Platelet Count 193, Mean Platelet Volume 8.4, Neutrophils (%) (Auto) , Lymphocytes (%) (Auto) , Monocytes (%) (Auto) , Eosinophils (%) (Auto) , Basophils (%) (Auto) , Sodium Level 143, Potassium Level 3.1L, Chloride Level 111H, Carbon Dioxide Level 23, Anion Gap 9, Blood Urea Nitrogen 13, Creatinine 0.7, Estimat Glomerular Filtration Rate > 60, Glucose Level 133H, Calcium Level 7.7L Height (Feet): 5 Height (Inches): 3.00 Weight (Pounds): 135 Objective Elderly WW NCAT supple CTA RR Abd mildly distended, (+) diffuse TTP, (+) abd wound no edema Kiya Rosario MD Jun 22, 2018 12:34
--- NOTE | 2018-06-22 13:50 | NUR ---
RESPIRATORY NOTE: Pt extubated per ABG results and MD order. Nurse at bedside. Breath sounds clear bilateral. Negative for stridor. Pt placed on 4L NC and tolerating well. Spo2 95%, HR 113, RR 18. Pt denies resp distress.
[2018-06-22] MEDS: HYDROmorphone 1mg/ml Carpuject IVP PRN ×2 (13:56→18:21)
--- NOTE | 2018-06-22 14:00 | NUR ---
NURSE NOTES: extubated pt, pt on 2L nasal cannula. 02 sat 98%. Will continue plan of care.
--- NOTE | 2018-06-22 14:23 | Diagnostic Imaging Report ---
EXAM: XR Chest, 1 View CLINICAL HISTORY: DYSPNEA TECHNIQUE: Frontal view of the chest. COMPARISON: 06/21/18 at 1622 hrs. FINDINGS: The tip of the endotracheal tube projects in the right mainstem bronchus. Recommend pulling the tube back 4 cm to ensure equal pulmonary aeration. Enteric tube courses below the diaphragm and out of the [id number]. Extensive infiltrates again noted. These have increased at the right base. Dual-lead pacer device again noted. IMPRESSION: Recommend pulling the ET tube back 4 cm. Increasing right base consolidation. <MYCVCSECTION> Critical Value Communications 06/22/18 14:28 Call Nurse Called LEVI Dorsey on 06/22 14:28 (-07:00)
--- NOTE | 2018-06-22 16:00 | NUR ---
NURSE NOTES: Pt condition improving. turned and repositioned pt
--- NOTE | 2018-06-22 16:28 | Internal Med Progress Note ---
Subjective Date of Service: Jun 22, 2018 Physician Name Alcides Velazquez Attending Physician Satinder Brewer MD Current Medications Medications (Trade) Dose Ordered Sig/Sandra Route PRN Reason Start Time Stop Time Status Last Admin Dose Admin Al Hydroxide/Mg Hydroxide (Mylanta II) 30 ml Q6H PRN ORAL dyspepsia 06/21/18 17:25 07/19/18 17:24 Cyclobenzaprine HCl (Flexeril) 10 mg Q8HR ORAL 06/21/18 22:00 07/19/18 21:59 Dextrose (Dextrose 50%) 25 ml Q30M PRN IV Hypoglycemia 06/21/18 17:26 07/19/18 17:25 Dextrose (Dextrose 50%) 50 ml Q30M PRN IV Hypoglycemia 06/21/18 17:26 07/19/18 17:25 Dextrose/Sodium Chloride 1,000 ml @ 75 mls/hr [id number] IV 06/21/18 18:00 07/19/18 17:59 06/22/18 07:30 Diphenhydramine HCl (Benadryl) 25 mg Q6H PRN ORAL Itching/Pruritis 06/21/18 17:26 07/19/18 17:25 Gabapentin (Neurontin) 400 mg THREE TIMES A DAY ORAL 06/21/18 18:00 07/20/18 08:59 Heparin Sodium (Porcine) (Heparin 5000 units/ml) 5,000 units EVERY 12 HOURS SUBQ 06/21/18 21:00 07/20/18 08:59 06/22/18 09:40 Hydromorphone HCl (Dilaudid) 0.5 mg Q3H PRN IVP Pain Score 1-3 06/21/18 18:12 06/28/18 18:11 06/22/18 09:56 Hydromorphone HCl (Dilaudid) 1 mg Q3H PRN IVP pain score 4-6 06/21/18 18:11 06/28/18 18:10 06/22/18 13:56 Hydromorphone HCl (Dilaudid) 2 mg Q3H PRN IVP pain score 7-10 06/21/18 18:12 06/28/18 18:11 06/21/18 18:31 Levothyroxine Sodium (Synthroid) 100 mcg ACBREAKFAST ORAL 06/22/18 06:30 07/20/18 06:29 Lorazepam (Ativan 2mg/ml 1ml) 1 mg Q4H PRN IV agitation 06/21/18 17:27 06/26/18 17:26 Metoclopramide HCl (Reglan) 10 mg Q6H PRN IVP servere nauasea 06/21/18 17:27 07/19/18 17:26 Nitroglycerin (Ntg) 0.4 mg Q5M X 3 DOSES PRN SL Prn Chest Pain 06/21/18 17:27 07/19/18 17:26 Norepinephrine Bitartrate 4 mg/ Dextrose 250 ml @ 0 mls/hr Q24H IV 06/22/18 01:45 07/22/18 01:44 06/22/18 01:51 Ondansetron HCl (Zofran) 4 mg Q6H PRN IVP Nausea & Vomiting 06/21/18 17:27 07/19/18 17:26 Pantoprazole (Protonix) 40 mg DAILY IV 06/22/18 09:00 07/20/18 08:59 06/22/18 09:39 Piperacillin Sod/ Tazobactam Sod 3.375 gm/Sodium Chloride 110 ml @ 27.5 mls/hr EVERY 8 HOURS IVPB 06/21/18 22:00 06/26/18 21:59 06/22/18 14:00 Polyethylene Glycol (Miralax) 17 gm HSPRN PRN ORAL Constipation 06/21/18 21:15 07/19/18 21:14 Potassium Chloride 100 ml @ 50 mls/hr Q2H IVPB 06/22/18 13:00 06/22/18 16:59 06/22/18 13:29 Promethazine HCl 12.5 mg/Sodium Chloride 55.5 ml @ 110 mls/hr Q6H PRN IV Refractory N/V 06/21/18 17:38 07/19/18 17:37 Promethazine HCl 25 mg/Sodium Chloride 56 ml @ 110 mls/hr Q6H PRN IV Refractory N/V 06/21/18 17:39 07/19/18 17:38 Temazepam (Restoril) 15 mg HSPRN PRN ORAL Insomnia 06/21/18 21:15 06/26/18 21:14 Allergies: Coded Allergies: ACETAMINOPHEN (Verified Allergy, Unknown, itching, 4/6/19) CODEINE (Verified Allergy, Unknown, 06/21/18) Uncoded Allergies: iodoform packing (Allergy, Unknown, redness, swelling, 06/21/18) Subjective 68 YO F admitted with abdominal pain. Now small bowel obstruction. S/P exploratory laparotomy, lysis of adhesions and small bowel resection/ anastomosis 06/21/18. ICU. Intubated and sedated. Cover for Int Jean Carlos-Dr Brewer Objective Last Vital Signs Date Time Temp Pulse Resp B/P (MAP) Pulse Ox O2 Delivery O2 Flow Rate FiO2 06/22/18 14:26 98.6 06/22/18 13:50 Nasal Cannula 4.0 36 06/22/18 13:10 113 27 06/22/18 12:00 99/69 (79) 99 Laboratory Tests Test 06/21/18 17:00 06/22/18 05:30 06/22/18 13:33 White Blood Count 2.2 K/UL (4.8-10.8) #L 11.1 K/UL (4.8-10.8) #H Red Blood Count 4.22 M/UL (4.20-5.40) 3.72 M/UL (4.20-5.40) L Hemoglobin 11.6 G/DL (12.0-16.0) L 10.4 G/DL (12.0-16.0) L Hematocrit 36.9 % (37.0-47.0) L 32.9 % (37.0-47.0) L Mean Corpuscular Volume 88 FL (80-99) 89 FL (80-99) Mean Corpuscular Hemoglobin 27.5 PG (27.0-31.0) 28.0 PG (27.0-31.0) Mean Corpuscular Hemoglobin Concent 31.5 G/DL (32.0-36.0) L 31.6 G/DL (32.0-36.0) L Red Cell Distribution Width 14.6 % (11.6-14.8) 14.5 % (11.6-14.8) Platelet Count 205 K/UL (150-450) 193 K/UL (150-450) Mean Platelet Volume 6.6 FL (6.5-10.1) 8.4 FL (6.5-10.1) Neutrophils (%) (Auto) % (45.0-75.0) % (45.0-75.0) Lymphocytes (%) (Auto) % (20.0-45.0) % (20.0-45.0) Monocytes (%) (Auto) % (1.0-10.0) % (1.0-10.0) Eosinophils (%) (Auto) % (0.0-3.0) % (0.0-3.0) Basophils (%) (Auto) % (0.0-2.0) % (0.0-2.0) Differential Total Cells Counted 100 Neutrophils % (Manual) 55 % (45-75) Lymphocytes % (Manual) 36 % (20-45) Monocytes % (Manual) 3 % (1-10) Eosinophils % (Manual) 1 % (0-3) Basophils % (Manual) 0 % (0-2) Band Neutrophils 5 % (0-8) Platelet Estimate Adequate Platelet Morphology Normal Hypochromasia 1+ Anisocytosis 1+ Sodium Level 143 MMOL/L (136-145) 143 MMOL/L (136-145) Potassium Level 4.4 MMOL/L (3.5-5.1) 3.1 MMOL/L (3.5-5.1) L Chloride Level 110 MMOL/L (98-107) H 111 MMOL/L (98-107) H Carbon Dioxide Level 28 MMOL/L (21-32) 23 MMOL/L (21-32) Anion Gap 5 mmol/L (5-15) 9 mmol/L (5-15) Blood Urea Nitrogen 13 mg/dL (7-18) 13 mg/dL (7-18) Creatinine 0.7 MG/DL (0.55-1.30) 0.7 MG/DL (0.55-1.30) Estimat Glomerular Filtration Rate > 60 mL/min (>60) > 60 mL/min (>60) Glucose Level 129 MG/DL (74-106) H 133 MG/DL (74-106) H Calcium Level 7.8 MG/DL (8.5-10.1) L 7.7 MG/DL (8.5-10.1) L Arterial Blood pH 7.309 (7.350-7.450) Arterial Blood Partial Pressure CO2 46.9 mmHg (35.0-45.0) H Arterial Blood Partial Pressure O2 133.2 mmHg (75.0-100.0) H Arterial Blood HCO3 23.0 mmol/L (22.0-26.0) Arterial Blood Oxygen Saturation 97.9 % (95-100) Arterial Blood Base Excess -3.3 (-2-2) L Bubba Test Positive Microbiology Date/Time Source Procedure Growth Status 06/19/18 19:40 Urine,Clean Catch Urine Culture - Final Klebsiella Pneumoniae Complete Intake and Output 06/21/18 06/22/18 18:59 06:59 Intake Total 1278 ml 1613.5 ml Output Total 150 ml 650 ml Balance 1128 ml 963.5 ml Intake IV Total 1278 ml 1613.5 ml Output Urine Total 150 ml 610 ml Gastric Drainage Total 40 ml Objective PHYSICAL EXAMINATION:. GENERAL: The patient is awake, responsive, and moaning in pain. HEAD AND NECK: Pupils are reactive to light. Extraocular movements are intact. NECK: Supple. No JVD. LUNGS: Good air entry. No wheezes or rhonchi. Coarse breath sounds. Decreased air in bases. ABDOMEN: Soft and not distended. Mildly obese. No rebound tenderness. Decreased bowel sounds. EXTREMITIES: No cyanosis, clubbing, or edema. NEUROLOGICAL: Cranial nerves II through XII grossly intact. The patient moving all extremities. RECTAL: Refused and deferred. GENITOURINARY: Refused and deferred. Assessment/Plan Assessment/Plan ASSESSMENT: 1. Abdominal pain associated with nausea and vomiting, Small bowel obstruction. 2. History of COPD. 3. Congestive heart failure. 4. Sick sinus syndrome with status post pacemaker. 5. Hypothyroidism. 6. Diabetes type 2. 7. Interstitial lung disease. 8. History of PE, status post IVC filter. 9. The patient has a history of acute kidney injury as well. PLAN: ICU statius. S/P expl lap, small bowel resection/anastomosis and lysis of adhesions on by Dr. Vigil General Surgery; Dr. eHrrera, Pulmonary Critical Care; and Dr. Mesa from Gastroenterology. Code status is Full Code. Keep the patient NPO. IV hydration. We will monitor laboratory closely. DVT prophylaxis with heparin subcutaneous. Alcides Velazquez MD Jun 22, 2018 16:28
--- NOTE | 2018-06-22 19:08 | NUR ---
HAND-OFF: Report given to LEVI Smith.
--- NOTE | 2018-06-22 19:50 | NUR ---
NURSE NOTES: PATIENT ALERT, ORIENTED, ON O2 2LPM VIA NC, NO COUGH OR SOB NOTED, O2 SATURATION OVER 97% NOTED, PACEMAKER TO LEFT CHEST, NGT TO LEFT NARES, INTACT AND LOWER INTERMITTENT SUCTION STATUS, KEPT HOB OVER 30 DEGREE, ABDOMEN SOFT, ABDOMINAL SURGERY DRESSING CLEAN AND DRIED, NO BLEEDING NOTED, NO BOWEL MOVEMENT STATUS, F/C INTACT AND PATENT, DARK YELLOW URINE OUTED GRAVITY, TLC TO RIGHT FEMORAL INTACT AND PATENT, ONGOING D5W 1/2NS AT 75ML/HR VIA TLC, PERIPHERAL LINE TO RIGHT HAND 22G INTACT AND PATENT, MADE LOWER BED POSITION, PROVIDED CALL LIGHT WITHIN REACH, WILL CONTINUE TO MONITOR.
[2018-06-22] MEDS ORDERED: Dyna-Hex 2% Top Sol 2oz TOPIC SCH (20:00)
--- NOTE | 2018-06-22 22:00 | NUR ---
NURSE NOTES: ORAL CARE WAS DONE, PATIENT DENIED PAIN AT THIS TIME.
[2018-06-23] VITALS (21 sets, daily range): BP systolic 88–153; BP diastolic 54–85
--- NOTE | 2018-06-23 00:10 | NUR ---
NURSE NOTES: PATIENT WATCHING TV AT THIS TIME, WILL CONTINUE PLAN OF CARE.
--- NOTE | 2018-06-23 02:12 | NUR ---
NURSE NOTES: NO PAIN OR DISTRESS NOTED, WILL CONTINUE TO MONITOR.
--- NOTE | 2018-06-23 02:36 | NUR ---
NURSE NOTES: PATIENT AGITATED, DID NOT FOLLOWED COMMANDS AT THIS TIME, TRIED TO PULLED OUT NGT AND COMPLAINED PAIN GIVEN DILAUDID 2MG IVP SLOWLY ORDERED AND ATIVAN 1MG BY IVP SLOWLY ORDERED, WILL CONTINUE TO MONITOR.
--- NOTE | 2018-06-23 03:30 | NUR ---
NURSE NOTES: PATIENT ASLEEP STATUS.
--- NOTE | 2018-06-23 05:20 | NUR ---
NURSE NOTES: PATIENT PULLED NGT OUT, NO N/V NOTED. MORNING CARE WAS DONE, NO BOWEL MOVEMENT AT THIS TIME.
[2018-06-23 05:28] LABS: BASOPHILS % (AUTO) 0.7 % (0.0-2.0); EOSINOPHILS % (AUTO) 2.1 % (0.0-3.0); LYMPHOCYTES % (AUTO) 9.3 % (20.0-45.0); MEAN CORPUSCULAR VOLUME 89 FL (80-99); MONOCYTES % (AUTO) 5.9 % (1.0-10.0); PLATELET COUNT 180 K/UL (150-450); RED BLOOD COUNT 3.59 M/UL (4.20-5.40); RED CELL DISTRIBUTION WIDTH 14.9 % (11.6-14.8); WHITE BLOOD COUNT 9.2 K/UL (4.8-10.8)
[2018-06-23] MEDS: Piperacillin/Tazobactam 3.375 GM in NS 110 ML IVPB SCH ×3 (05:34→22:00)
[2018-06-23] MEDS: Cyclobenzaprine 10mg Tab ORAL SCH ×3 (05:35→22:00)
[2018-06-23 05:37] LABS: PHOSPHORUS 1.8 MG/DL (2.5-4.9)
[2018-06-23 05:39] LABS: ALANINE AMINOTRANSFERASE 24 U/L (12-78); ALBUMIN 1.8 G/DL (3.4-5.0); ALBUMIN/GLOBULIN RATIO 0.7 (1.0-2.7); ALKALINE PHOSPHATASE 96 U/L (46-116); ANION GAP 9 mmol/L (5-15); ASPARTATE AMINO TRANSFERASE 29 U/L (15-37); BILIRUBIN,TOTAL 0.5 MG/DL (0.2-1.0); BLOOD UREA NITROGEN 9 mg/dL (7-18); CALCIUM 8.2 MG/DL (8.5-10.1); CARBON DIOXIDE 23 MMOL/L (21-32); CHLORIDE 110 MMOL/L (98-107); CREATININE 0.5 MG/DL (0.55-1.30); POTASSIUM 3.7 MMOL/L (3.5-5.1); SODIUM 142 MMOL/L (136-145)
--- NOTE | 2018-06-23 06:44 | NUR ---
NURSE NOTES: CALLED DR. SOLANO REGARDING LOWER MG 1.5 AND PHOSPHORUS 1.8 LEVEL THAT LEFT MESSAGE.
--- NOTE | 2018-06-23 06:57 | NUR ---
NURSE NOTES: CALLED DR. BUENO, REGARDING PULLED NGT OUT STATUS THAT MD WAS AWARE, DOCTOR SAID " LEAVE OUT"
--- NOTE | 2018-06-23 07:12 | NUR ---
CASE MANAGEMENT:REVIEW 06/23/18 SI: SBO. POD #2 S/P LYSIS OF ADHESIONS,SBO RESECTION/ANASTOMOSIS 98.4 108 28 114/65 98% ON 2L/NC H/H-10.0/32.0 PHOS-1.8 MAG-1.5 IS: IV ZOSYN Q8HRS IV PROTONIX QD IVF@75/HR HEPARIN SQ Q12 ICU STATUS PLAN: NPO MAY REQUIRE TPN
--- NOTE | 2018-06-23 07:18 | NUR ---
HAND-OFF: Report given to LEVI WAY.
--- NOTE | 2018-06-23 07:19 | NUR ---
NURSE NOTES: Report received from Luis RN. Pt is awake, alert, oriented x3, resting in bed in semi-correia's position. Pt is on 2L of oxygen via nasal cannula with O2sat 97%, with no respiratory distress, (per report, was extubated yesterday, 06/22/18). Bilateral rhonchi/rales heard on auscultation. phototypesetting equipment monitor displays ST, with HR 100-108. Pt is currently NPO, (per report, pt pulled out the NG tube, which was connected to low-intermittent suction, surgeon informed and order received to leave NG tube out). Post-surgical dressing is in place on mid-abdomen, dry/intact; rest of skin is intact, with no edema present on extremities. Bounding radial pulse. Abdomen is soft, tender to touch, nondistended. Right femoral TLC present, infusing D5 0.45%NS at 75mL/hour. Driscoll catheter in place, draining clear/yellow urine. Bed is locked with three side rails up and call light within reach. Will continue to monitor pt and follow plan of care per MD orders and protocol.
--- NOTE | 2018-06-23 08:00 | NUR ---
NURSE NOTES: Order received from Dr Herrera to replace Mag and Phos. Will process order and follow.
[2018-06-23] MEDS: Pantoprazole Inj IV SCH (08:39)
[2018-06-23] MEDS: Heparin 5000 units/ml inj SUBQ SCH ×2 (08:41→20:57)
--- NOTE | 2018-06-23 09:48 | Pulmonolgy Critical Care Note ---
Critical Care - Asmt/Plan Problems: (1) Respiratory failure, acute (2) S/P small bowel resection (3) COPD (chronic obstructive pulmonary disease) (4) Diabetes mellitus (5) CHF (congestive heart failure) (6) Interstitial lung disease (7) Pacemaker Respiratory: monitor respiratory rate, adjust FIO2, CXR Cardiac: continue to monitor HR/BP Renal: F/U I&O, check electrolytes Infectious Disease: check cultures, continue antibiotics Gastrointestinal: continue feedings/current rate Endocrine: monitor blood sugar Hematologic: monitor H/H, transfuse if hgb<8.5 Neurologic: PRN Ativan, keep patient comfortable Affect: PRN ativan Prophylaxis: Protonix Time Spent (Minutes): 40 Notes Reviewed: cardio, renal Discussed with: nurses, consultants, lining casermanager of applications development - Objective Last 24 Hour Vital Signs Date Time Temp Pulse Resp B/P (MAP) Pulse Ox O2 Delivery O2 Flow Rate FiO2 06/23/18 08:00 97.6 106 25 120/66 (84) 96 06/23/18 07:24 Nasal Cannula 2.0 28 06/23/18 07:24 98 Nasal Cannula 2.0 28 06/23/18 07:00 107 26 130/70 (90) 97 06/23/18 06:00 108 28 114/65 (81) 98 06/23/18 05:00 110 29 113/56 (75) 98 06/23/18 04:00 Nasal Cannula 2.0 Nasal Cannula 2.0 06/23/18 04:00 98.4 109 20 110/60 (77) 97 06/23/18 03:56 120 06/23/18 03:00 110 20 122/68 (86) 97 06/23/18 02:00 113 22 118/59 (78) 97 06/23/18 01:45 118/59 06/23/18 01:00 109 28 135/64 (87) 100 06/23/18 00:00 Nasal Cannula 2.0 Nasal Cannula 2.0 06/23/18 00:00 98.4 104 20 118/60 (79) 98 06/23/18 00:00 104 06/22/18 23:00 91 22 105/53 (70) 97 06/22/18 22:00 88 22 98/54 (69) 97 06/22/18 21:00 90 15 94/53 (67) 99 06/22/18 20:00 98.8 90 13 92/47 (62) 98 06/22/18 20:00 Nasal Cannula 2.0 Nasal Cannula 2.0 06/22/18 20:00 95 Nasal Cannula 2.0 28 06/22/18 20:00 2.0 06/22/18 20:00 Nasal Cannula 2.0 28 06/22/18 20:00 90 06/22/18 19:00 105 16 105/65 (78) 99 06/22/18 18:51 98.6 06/22/18 18:00 106 16 103/60 (74) 99 06/22/18 17:00 107 16 109/77 (88) 99 06/22/18 16:00 105 06/22/18 16:00 Nasal Cannula 2.0 Nasal Cannula 2.0 06/22/18 16:00 98.5 110 16 115/63 (80) 98 06/22/18 15:00 103 16 99/69 (79) 99 06/22/18 14:00 106 16 105/72 (83) 99 06/22/18 13:50 Nasal Cannula 4.0 36 06/22/18 13:10 113 27 50 06/22/18 13:00 105 16 102/69 (80) 99 06/22/18 12:00 106 16 99/69 (79) 99 06/22/18 12:00 107 06/22/18 12:00 Mechanical Ventilator 06/22/18 11:14 109 25 50 06/22/18 11:00 98.6 110 16 110/63 (79) 98 06/22/18 10:26 97.6 06/22/18 10:00 105 16 118/65 (82) 99 Status: awake Condition: critical HEENT: atraumatic, normocephalic Neck: full ROM Lungs: chest wall tender Heart: HR/BP stable Abdomen: soft, non-tender, active bowel sounds, feeding tube Decubiti: location Micro: Microbiology Date/Time Source Procedure Growth Status 06/21/18 17:40 Sputum Gram Stain Pending Resulted 06/21/18 17:40 Sputum Culture - Preliminary Gram Negative Bacillus 1 Resulted Critical Care - Subjective ROS Limited/Unobtainable: Yes Condition: critical EKG Rhythm: Sinus Rhythm FI02: 28 Vent Support Breath Rate: 16 Vent Support Mode: CPAP Vent Tidal Volume: 600 Sputum Amount: Small PEEP: 2.0 PIP: 11 I&O: Intake and Output 06/22/18 06/23/18 19:00 07:00 Intake Total 950.0 ml 873.5 ml Output Total 560 ml 600 ml Balance 390.0 ml 273.5 ml Intake IV Total 950.0 ml 873.5 ml Output Urine Total 560 ml 600 ml CXR: bilateral interstitial infiltrate ET-Tube: 7.0 ET Position: 22 Quincy Herrera MD Jun 23, 2018 09:48
--- NOTE | 2018-06-23 09:55 | NUR ---
RADIOLOGY DEPT., CHEST X-RAY DONE.-P.DYE
[2018-06-23] MEDS: D5 1/2NS 1,000 ML IV SCH ×2 (09:58→20:57)
--- NOTE | 2018-06-23 10:07 | NUR ---
*-* INSURANCE *--* ALL CLINICALS AND REVIEWS HAVE BEEN FAXED TO: [facility] [phone] F [phone]
--- NOTE | 2018-06-23 10:45 | NUR ---
Social Service Note Unable to interview patient this morning, patient lethargic after given pain medication. SW familiar with patient from previous admission. Patient with a history of homelessness and receiving services from a program called [facility]. Will follow up once more awake.
[2018-06-23] MEDS ORDERED: Sodium Phosphate 20 MM in NS 275 ML IVPB ONE (11:00)
--- NOTE | 2018-06-23 12:01 | Diagnostic Imaging Report ---
Indication: Cough Technique: One view of the chest Comparison: 06/22/2018 Findings: Interim endotracheal and nasogastric extubation. There is persistent elevation of the right hemidiaphragm. Again demonstrated is diffuse interstitial and airspace disease bilaterally, stable or slightly worse allowing for differences in exposure technique. There is a left chest pacemaker again demonstrated. The heart size is normal. Impression: Bilateral diffuse interstitial and airspace disease, stable or slightly worse compared to previous study of one day earlier Interim extubation
--- NOTE | 2018-06-23 12:15 | NUR ---
NURSE NOTES: Pt is asleep/drowsy, resting in semi-correia's position. Pt continues on 2L of oxygen via nasal cannula with O2sat 97%, with no respiratory distress, Bilateral rhonchi/rales heard on auscultation. air sampling and monitoring displays ST, with HR 100-108. Pt continue to be NPO. Post-surgical dressing is in place on mid-abdomen, dry/intact; rest of skin is intact, with no edema present on extremities. Bounding radial pulse. Abdomen is soft, round, tender to touch, nondistended. Absent bowel sounds. Right femoral TLC present, infusing D5 0.45%NS at 75mL/hour. Driscoll catheter in place, draining clear/yellow urine. Bed is locked with three side rails up and call light within reach. Will continue to monitor pt and follow plan of care per MD orders and protocol.
--- NOTE | 2018-06-23 12:30 | NUR ---
NURSE NOTES: Pt was seen and assessed by Dr Bryan. recommends TPN. Will contact Dr Brewer for order. Also, per if pt is stable can be transferred to [facility].
--- NOTE | 2018-06-23 13:28 | GI Progress Note ---
Assessment/Plan Problems: (1) S/P small bowel resection ICD Codes: Z90.49 - Acquired absence of other specified parts of digestive tract SNOMED: 38914761, 369628000, 502236241088266 (2) Abdominal pain ICD Codes: R10.9 - Unspecified abdominal pain SNOMED: 76835393 (3) Hypothyroidism ICD Codes: E03.9 - Hypothyroidism, unspecified SNOMED: 13061617 (4) Chronic pain ICD Codes: G89.29 - Other chronic pain SNOMED: 41352542 (5) Diabetes mellitus ICD Codes: E11.9 - Type 2 diabetes mellitus without complications SNOMED: 27085776 Status: unchanged Status Narrative Discussed with Dr. Mesa. Assessment/Plan Assessment - SBO - s/p exlap - abd pain Recommendations - NPO - post op care - Surgical follow up - IVF - Follow exam The patient was seen and examined at bedside and all new and available data was reviewed in the patients chart. I agree with the above findings, impression and plan. (Patient seen earlier today. Signature stamp does not reflect patient encounter time.). - Olivier Mesa MD Subjective Gastrointestinal/Abdominal: Reports: abdominal pain Objective Last 24 Hour Vital Signs Date Time Temp Pulse Resp B/P (MAP) Pulse Ox O2 Delivery O2 Flow Rate FiO2 06/23/18 12:00 Nasal Cannula 2.0 Nasal Cannula 2.0 06/23/18 12:00 98.9 102 14 88/54 (65) 95 06/23/18 11:00 106 13 101/55 (70) 95 06/23/18 10:28 97.6 06/23/18 10:00 100 17 110/61 (77) 97 06/23/18 09:00 111 26 119/85 (96) 98 06/23/18 08:00 Nasal Cannula 2.0 Nasal Cannula 2.0 06/23/18 08:00 108 06/23/18 08:00 97.6 106 25 120/66 (84) 96 06/23/18 07:24 Nasal Cannula 2.0 28 06/23/18 07:24 98 Nasal Cannula 2.0 28 06/23/18 07:00 107 26 130/70 (90) 97 06/23/18 06:00 108 28 114/65 (81) 98 06/23/18 05:00 110 29 113/56 (75) 98 06/23/18 04:00 Nasal Cannula 2.0 Nasal Cannula 2.0 06/23/18 04:00 98.4 109 20 110/60 (77) 97 06/23/18 03:56 120 06/23/18 03:00 110 20 122/68 (86) 97 06/23/18 02:00 113 22 118/59 (78) 97 06/23/18 01:45 118/59 06/23/18 01:00 109 28 135/64 (87) 100 06/23/18 00:00 Nasal Cannula 2.0 Nasal Cannula 2.0 06/23/18 00:00 98.4 104 20 118/60 (79) 98 06/23/18 00:00 104 06/22/18 23:00 91 22 105/53 (70) 97 06/22/18 22:00 88 22 98/54 (69) 97 06/22/18 21:00 90 15 94/53 (67) 99 06/22/18 20:00 98.8 90 13 92/47 (62) 98 06/22/18 20:00 Nasal Cannula 2.0 Nasal Cannula 2.0 06/22/18 20:00 95 Nasal Cannula 2.0 28 06/22/18 20:00 2.0 06/22/18 20:00 Nasal Cannula 2.0 28 06/22/18 20:00 90 06/22/18 19:00 105 16 105/65 (78) 99 06/22/18 18:51 98.6 06/22/18 18:00 106 16 103/60 (74) 99 06/22/18 17:00 107 16 109/77 (88) 99 06/22/18 16:00 105 06/22/18 16:00 Nasal Cannula 2.0 Nasal Cannula 2.0 06/22/18 16:00 98.5 110 16 115/63 (80) 98 06/22/18 15:00 103 16 99/69 (79) 99 06/22/18 14:00 106 16 105/72 (83) 99 06/22/18 13:50 Nasal Cannula 4.0 36 Intake and Output 06/22/18 06/23/18 19:00 07:00 Intake Total 950.0 ml 873.5 ml Output Total 560 ml 600 ml Balance 390.0 ml 273.5 ml Intake IV Total 950.0 ml 873.5 ml Output Urine Total 560 ml 600 ml Laboratory Tests Test 06/22/18 13:33 06/23/18 04:20 06/23/18 08:23 Arterial Blood pH 7.309 (7.350-7.450) 7.337 (7.350-7.450) Arterial Blood Partial Pressure CO2 46.9 mmHg (35.0-45.0) H 44.5 mmHg (35.0-45.0) Arterial Blood Partial Pressure O2 133.2 mmHg (75.0-100.0) H 87.6 mmHg (75.0-100.0) Arterial Blood HCO3 23.0 mmol/L (22.0-26.0) 23.3 mmol/L (22.0-26.0) Arterial Blood Oxygen Saturation 97.9 % (95-100) 96.4 % (95-100) Arterial Blood Base Excess -3.3 (-2-2) L -2.5 (-2-2) L Bubba Test Positive Positive White Blood Count 9.2 K/UL (4.8-10.8) Red Blood Count 3.59 M/UL (4.20-5.40) L Hemoglobin 10.0 G/DL (12.0-16.0) L Hematocrit 32.0 % (37.0-47.0) L Mean Corpuscular Volume 89 FL (80-99) Mean Corpuscular Hemoglobin 28.0 PG (27.0-31.0) Mean Corpuscular Hemoglobin Concent 31.4 G/DL (32.0-36.0) L Red Cell Distribution Width 14.9 % (11.6-14.8) H Platelet Count 180 K/UL (150-450) Mean Platelet Volume 7.9 FL (6.5-10.1) Neutrophils (%) (Auto) 82.0 % (45.0-75.0) H Lymphocytes (%) (Auto) 9.3 % (20.0-45.0) L Monocytes (%) (Auto) 5.9 % (1.0-10.0) Eosinophils (%) (Auto) 2.1 % (0.0-3.0) Basophils (%) (Auto) 0.7 % (0.0-2.0) Sodium Level 142 MMOL/L (136-145) Potassium Level 3.7 MMOL/L (3.5-5.1) Chloride Level 110 MMOL/L (98-107) H Carbon Dioxide Level 23 MMOL/L (21-32) Anion Gap 9 mmol/L (5-15) Blood Urea Nitrogen 9 mg/dL (7-18) Creatinine 0.5 MG/DL (0.55-1.30) L Estimat Glomerular Filtration Rate > 60 mL/min (>60) Glucose Level 94 MG/DL (74-106) Calcium Level 8.2 MG/DL (8.5-10.1) L Phosphorus Level 1.8 MG/DL (2.5-4.9) L Magnesium Level 1.5 MG/DL (1.8-2.4) L Total Bilirubin 0.5 MG/DL (0.2-1.0) Aspartate Amino Transf (AST/SGOT) 29 U/L (15-37) Alanine Aminotransferase (ALT/SGPT) 24 U/L (12-78) Alkaline Phosphatase 96 U/L (46-116) Total Protein 4.5 G/DL (6.4-8.2) L Albumin 1.8 G/DL (3.4-5.0) L Globulin 2.7 g/dL Albumin/Globulin Ratio 0.7 (1.0-2.7) L Height (Feet): 5 Height (Inches): 3.00 Weight (Pounds): 135 General Appearance: WD/WN, no apparent distress, alert Cardiovascular: normal rate Respiratory/Chest: normal breath sounds, no respiratory distress Abdominal Exam: normal bowel sounds, non tender, soft, incision site Extremities: normal range of motion, non-tender Shelby Roberson [employer] FINISH[employer] WORK[employer] Jun 23, 2018 13:28
[2018-06-23] MEDS ORDERED: Dextrose 10% 1,000 ML IV PRN (15:45)
--- NOTE | 2018-06-23 16:00 | NUR ---
NURSE NOTES: Order received from Dr Brewer and Dr Mesa to start pt on TPN. Referred to dietary for concentration/dosage of TPN. Per pharmacist, TPN will be available tomorrow.
--- NOTE | 2018-06-23 17:29 | General Surgery Progress Note ---
General Surgery-Progress Note Subjective Procedure Performed ex lap, lysis of adhesions and small bowel resection with primary anastomosis Symptoms: improved Objective Last 24 Hour Vital Signs Date Time Temp Pulse Resp B/P (MAP) Pulse Ox O2 Delivery O2 Flow Rate FiO2 06/23/18 16:00 92 06/23/18 16:00 97.6 99 23 114/64 (81) 97 06/23/18 15:00 100 20 109/68 (82) 98 06/23/18 14:00 98 20 113/57 (75) 98 06/23/18 13:00 101 18 100/65 (77) 98 06/23/18 12:00 Nasal Cannula 2.0 Nasal Cannula 2.0 06/23/18 12:00 97 06/23/18 12:00 98.9 102 14 88/54 (65) 95 06/23/18 11:00 106 13 101/55 (70) 95 06/23/18 10:28 97.6 06/23/18 10:00 100 17 110/61 (77) 97 06/23/18 09:00 111 26 119/85 (96) 98 06/23/18 08:00 Nasal Cannula 2.0 Nasal Cannula 2.0 06/23/18 08:00 108 06/23/18 08:00 97.6 106 25 120/66 (84) 96 06/23/18 07:24 Nasal Cannula 2.0 28 06/23/18 07:24 98 Nasal Cannula 2.0 28 06/23/18 07:00 107 26 130/70 (90) 97 06/23/18 06:00 108 28 114/65 (81) 98 06/23/18 05:00 110 29 113/56 (75) 98 06/23/18 04:00 Nasal Cannula 2.0 Nasal Cannula 2.0 06/23/18 04:00 98.4 109 20 110/60 (77) 97 06/23/18 03:56 120 06/23/18 03:00 110 20 122/68 (86) 97 06/23/18 02:00 113 22 118/59 (78) 97 06/23/18 01:45 118/59 06/23/18 01:00 109 28 135/64 (87) 100 06/23/18 00:00 Nasal Cannula 2.0 Nasal Cannula 2.0 06/23/18 00:00 98.4 104 20 118/60 (79) 98 06/23/18 00:00 104 06/22/18 23:00 91 22 105/53 (70) 97 06/22/18 22:00 88 22 98/54 (69) 97 06/22/18 21:00 90 15 94/53 (67) 99 06/22/18 20:00 98.8 90 13 92/47 (62) 98 06/22/18 20:00 Nasal Cannula 2.0 Nasal Cannula 2.0 06/22/18 20:00 95 Nasal Cannula 2.0 28 06/22/18 20:00 2.0 06/22/18 20:00 Nasal Cannula 2.0 28 06/22/18 20:00 90 06/22/18 19:00 105 16 105/65 (78) 99 06/22/18 18:51 98.6 06/22/18 18:00 106 16 103/60 (74) 99 I&O Intake and Output 06/22/18 06/23/18 18:59 06:59 Intake Total 1056.25 ml 873.5 ml Output Total 555 ml 605 ml Balance 501.25 ml 268.5 ml Intake IV Total 1056.25 ml 873.5 ml Output Urine Total 555 ml 605 ml Dressing: dry Drains: none Respiratory: clear Abdomen: soft, flat, tenderness, absent bowel sounds Extremities: no tenderness Laboratory Tests Test 06/23/18 04:20 06/23/18 08:23 White Blood Count 9.2 K/UL (4.8-10.8) Red Blood Count 3.59 M/UL (4.20-5.40) L Hemoglobin 10.0 G/DL (12.0-16.0) L Hematocrit 32.0 % (37.0-47.0) L Mean Corpuscular Volume 89 FL (80-99) Mean Corpuscular Hemoglobin 28.0 PG (27.0-31.0) Mean Corpuscular Hemoglobin Concent 31.4 G/DL (32.0-36.0) L Red Cell Distribution Width 14.9 % (11.6-14.8) H Platelet Count 180 K/UL (150-450) Mean Platelet Volume 7.9 FL (6.5-10.1) Neutrophils (%) (Auto) 82.0 % (45.0-75.0) H Lymphocytes (%) (Auto) 9.3 % (20.0-45.0) L Monocytes (%) (Auto) 5.9 % (1.0-10.0) Eosinophils (%) (Auto) 2.1 % (0.0-3.0) Basophils (%) (Auto) 0.7 % (0.0-2.0) Sodium Level 142 MMOL/L (136-145) Potassium Level 3.7 MMOL/L (3.5-5.1) Chloride Level 110 MMOL/L (98-107) H Carbon Dioxide Level 23 MMOL/L (21-32) Anion Gap 9 mmol/L (5-15) Blood Urea Nitrogen 9 mg/dL (7-18) Creatinine 0.5 MG/DL (0.55-1.30) L Estimat Glomerular Filtration Rate > 60 mL/min (>60) Glucose Level 94 MG/DL (74-106) Calcium Level 8.2 MG/DL (8.5-10.1) L Phosphorus Level 1.8 MG/DL (2.5-4.9) L Magnesium Level 1.5 MG/DL (1.8-2.4) L Total Bilirubin 0.5 MG/DL (0.2-1.0) Aspartate Amino Transf (AST/SGOT) 29 U/L (15-37) Alanine Aminotransferase (ALT/SGPT) 24 U/L (12-78) Alkaline Phosphatase 96 U/L (46-116) Total Protein 4.5 G/DL (6.4-8.2) L Albumin 1.8 G/DL (3.4-5.0) L Globulin 2.7 g/dL Albumin/Globulin Ratio 0.7 (1.0-2.7) L Arterial Blood pH 7.337 (7.350-7.450) Arterial Blood Partial Pressure CO2 44.5 mmHg (35.0-45.0) Arterial Blood Partial Pressure O2 87.6 mmHg (75.0-100.0) Arterial Blood HCO3 23.3 mmol/L (22.0-26.0) Arterial Blood Oxygen Saturation 96.4 % (95-100) Arterial Blood Base Excess -2.5 (-2-2) L Bubba Test Positive Assessment Additional Comments S/P bowel resection Plan Additional Comments continue as before, can be transferred to [facility], requires TPN Moshe Bryan MD Jun 23, 2018 17:29
--- NOTE | 2018-06-23 18:00 | NUR ---
NURSE NOTES: Pt is awake, fatigued, on 2L of oxygen via nasal cannula, with O2sat 98-100%, with no respiratory distress. Remains NPO, with abdominal dressing on mid-abdomen post-op, dry/intact. R femoral TLC is infusing D5 0.45%NS at 75ml/hour. Driscoll catheter is draining clear/yellow urine, with hourly output during my shift from 60-120ml/hour. Pt was administered Dilaudid PRN for pain, however currently resting comfortably in semi-correia's position. Vital signs are stable.
--- NOTE | 2018-06-23 19:00 | NUR ---
NURSE NOTES: Order receiving from Dr Herrera to transfer pt to [facility]. Awaiting for bed assignment.
--- NOTE | 2018-06-23 19:32 | Cardiology Report ---
APPROVED REPORT EKG Measurement Heart [id number] IA 132P [id number] Sinus tachycardia Right bundle branch block Suspect " inferior lead reversal" Inferior infarct, possibly acute Abnormal ECG
--- NOTE | 2018-06-23 19:34 | Cardiology Report ---
APPROVED REPORT EKG Measurement Heart [id number] MA [id number] Normal sinus rhythm Possible Left atrial enlargement Right bundle branch block Left anterior fascicular block Bifascicular block Septal infarct, age undetermined Abnormal ECG
--- NOTE | 2018-06-23 19:35 | NUR ---
HAND-OFF: Report given to Livia SIMS. Pt is resting in bed in stable condition. Endorsed plan of care, including transfer to [facility].
--- NOTE | 2018-06-23 19:56 | NUR ---
NURSE NOTES: Patient was transferred from ICU to [id number] bed 2 via bed accompanied by 2 RN. Report received from LEVI Camacho at bed side. belongings signed with Janice. Patient is alert, verbally responsive, able to make needs known. denies any pain at this time. on oxygen 2L/min via NC with sp02 98%. noted IV site to right hand 22g , intact. Currently running IVF of D51/2NS at 75cc/hr. Driscoll cath is in place and is intact. remains NPO at this time. bed is in lowest position. Call light is within easy reach while in bed. will continue to monitor
[2018-06-23] MEDS ORDERED: Nitroglycerin Subl 0.4mg tab SL PRN (20:15)
--- NOTE | 2018-06-23 20:48 | Internal Med Progress Note ---
Subjective Date of Service: Jun 23, 2018 Physician Name Alcides Velazquez Attending Physician Satinder Brewer MD Current Medications Medications (Trade) Dose Ordered Sig/Sandra Route PRN Reason Start Time Stop Time Status Last Admin Dose Admin Al Hydroxide/Mg Hydroxide (Mylanta II) 30 ml Q6H PRN ORAL dyspepsia 06/23/18 23:30 07/19/18 17:24 Amino Acids/ Electrolytes/ Dextrose 2,000 ml @ 83 mls/hr Q24H IV 06/23/18 21:00 07/23/18 20:59 UNV Chlorhexidine Gluconate (Chioma-Hex 2%) 1 applic DAILY@2000 TOPIC 06/24/18 20:00 07/22/18 19:59 Cyclobenzaprine HCl (Flexeril) 10 mg Q8HR ORAL 06/23/18 22:00 07/19/18 21:59 Dextrose 1,000 ml @ 0 mls/hr Q24H PRN IV PN interrupted or unavailable 06/24/18 21:00 07/23/18 20:59 Dextrose (Dextrose 50%) 25 ml Q30M PRN IV Hypoglycemia 06/23/18 20:30 07/19/18 17:25 Dextrose (Dextrose 50%) 25 ml Q30M PRN IV Hypoglycemia 06/23/18 20:45 07/23/18 15:44 Dextrose (Dextrose 50%) 50 ml Q30M PRN IV Hypoglycemia 06/23/18 20:30 07/19/18 17:25 Dextrose (Dextrose 50%) 50 ml Q30M PRN IV Hypoglycemia 06/23/18 20:45 07/23/18 15:44 Dextrose/Sodium Chloride 1,000 ml @ 75 mls/hr [id number] IV 06/23/18 21:00 07/19/18 20:59 Diphenhydramine HCl (Benadryl) 25 mg Q6H PRN ORAL Itching/Pruritis 06/23/18 23:30 07/19/18 17:25 Gabapentin (Neurontin) 400 mg THREE TIMES A DAY ORAL 06/24/18 09:00 07/20/18 08:59 Heparin Sodium (Porcine) (Heparin 5000 units/ml) 5,000 units EVERY 12 HOURS SUBQ 06/23/18 21:00 07/20/18 08:59 Hydromorphone HCl (Dilaudid) 0.5 mg Q3H PRN IVP Pain Score 1-3 06/23/18 21:15 06/28/18 18:11 Hydromorphone HCl (Dilaudid) 1 mg Q3H PRN IVP pain score 4-6 06/23/18 21:15 06/28/18 18:10 Hydromorphone HCl (Dilaudid) 2 mg Q3H PRN IVP pain score 7-10 06/23/18 21:15 06/28/18 18:11 Levothyroxine Sodium (Synthroid) 100 mcg ACBREAKFAST ORAL 06/24/18 06:30 07/20/18 06:29 Lorazepam (Ativan 2mg/ml 1ml) 1 mg Q4H PRN IV agitation 06/23/18 21:30 06/26/18 17:26 Nitroglycerin (Ntg) 0.4 mg Q5M X 3 DOSES PRN SL Prn Chest Pain 06/23/18 20:15 07/19/18 17:26 Ondansetron HCl (Zofran) 4 mg Q6H PRN IVP Nausea & Vomiting 06/23/18 23:30 07/19/18 17:26 Pantoprazole (Protonix) 40 mg DAILY IV 06/24/18 09:00 07/20/18 08:59 Piperacillin Sod/ Tazobactam Sod 3.375 gm/Sodium Chloride 110 ml @ 27.5 mls/hr EVERY 8 HOURS IVPB 06/23/18 22:00 06/28/18 21:59 Polyethylene Glycol (Miralax) 17 gm HSPRN PRN ORAL Constipation 06/23/18 21:15 07/19/18 21:14 Promethazine HCl 12.5 mg/Sodium Chloride 55.5 ml @ 110 mls/hr Q6H PRN IV Refractory N/V 06/23/18 23:45 07/19/18 17:37 Promethazine HCl 25 mg/Sodium Chloride 56 ml @ 110 mls/hr Q6H PRN IV Refractory N/V 06/23/18 23:45 07/19/18 17:38 Temazepam (Restoril) 15 mg HSPRN PRN ORAL Insomnia 06/23/18 21:15 06/26/18 21:14 Allergies: Coded Allergies: ACETAMINOPHEN (Verified Allergy, Unknown, itching, 06/21/18) CODEINE (Verified Allergy, Unknown, 06/21/18) Uncoded Allergies: iodoform packing (Allergy, Unknown, redness, swelling, 06/21/18) ROS Limited/Unobtainable: No Constitutional: Reports: no symptoms HEENT: Reports: no symptoms Cardiovascular: Reports: no symptoms Respiratory: Reports: no symptoms Gastrointestinal/Abdominal: Reports: abdominal pain Genitourinary: Reports: no symptoms Neurologic/Psychiatric: Reports: no symptoms Subjective 68 YO F admitted with abdominal pain. Now small bowel obstruction. S/P exploratory laparotomy, lysis of adhesions and small bowel resection/ anastomosis 06/21/18. ICU. Cover for Int Jean Carlos-Dr Brewer Objective Last Vital Signs Date Time Temp Pulse Resp B/P (MAP) Pulse Ox O2 Delivery O2 Flow Rate FiO2 06/23/18 19:00 107 31 132/70 (90) 98 06/23/18 16:00 97.6 06/23/18 16:00 Nasal Cannula 2.0 Nasal Cannula 2.0 06/23/18 07:24 28 Laboratory Tests Test 06/23/18 04:20 06/23/18 08:23 White Blood Count 9.2 K/UL (4.8-10.8) Red Blood Count 3.59 M/UL (4.20-5.40) L Hemoglobin 10.0 G/DL (12.0-16.0) L Hematocrit 32.0 % (37.0-47.0) L Mean Corpuscular Volume 89 FL (80-99) Mean Corpuscular Hemoglobin 28.0 PG (27.0-31.0) Mean Corpuscular Hemoglobin Concent 31.4 G/DL (32.0-36.0) L Red Cell Distribution Width 14.9 % (11.6-14.8) H Platelet Count 180 K/UL (150-450) Mean Platelet Volume 7.9 FL (6.5-10.1) Neutrophils (%) (Auto) 82.0 % (45.0-75.0) H Lymphocytes (%) (Auto) 9.3 % (20.0-45.0) L Monocytes (%) (Auto) 5.9 % (1.0-10.0) Eosinophils (%) (Auto) 2.1 % (0.0-3.0) Basophils (%) (Auto) 0.7 % (0.0-2.0) Sodium Level 142 MMOL/L (136-145) Potassium Level 3.7 MMOL/L (3.5-5.1) Chloride Level 110 MMOL/L (98-107) H Carbon Dioxide Level 23 MMOL/L (21-32) Anion Gap 9 mmol/L (5-15) Blood Urea Nitrogen 9 mg/dL (7-18) Creatinine 0.5 MG/DL (0.55-1.30) L Estimat Glomerular Filtration Rate > 60 mL/min (>60) Glucose Level 94 MG/DL (74-106) Calcium Level 8.2 MG/DL (8.5-10.1) L Phosphorus Level 1.8 MG/DL (2.5-4.9) L Magnesium Level 1.5 MG/DL (1.8-2.4) L Total Bilirubin 0.5 MG/DL (0.2-1.0) Aspartate Amino Transf (AST/SGOT) 29 U/L (15-37) Alanine Aminotransferase (ALT/SGPT) 24 U/L (12-78) Alkaline Phosphatase 96 U/L (46-116) Total Protein 4.5 G/DL (6.4-8.2) L Albumin 1.8 G/DL (3.4-5.0) L Globulin 2.7 g/dL Albumin/Globulin Ratio 0.7 (1.0-2.7) L Arterial Blood pH 7.337 (7.350-7.450) Arterial Blood Partial Pressure CO2 44.5 mmHg (35.0-45.0) Arterial Blood Partial Pressure O2 87.6 mmHg (75.0-100.0) Arterial Blood HCO3 23.3 mmol/L (22.0-26.0) Arterial Blood Oxygen Saturation 96.4 % (95-100) Arterial Blood Base Excess -2.5 (-2-2) L Bubba Test Positive Microbiology Date/Time Source Procedure Growth Status 06/21/18 17:40 Sputum Gram Stain - Final Resulted 06/21/18 17:40 Sputum Culture - Preliminary Gram Negative Bacillus 1 Resulted Intake and Output 06/22/18 06/23/18 18:59 06:59 Intake Total 1056.25 ml 873.5 ml Output Total 555 ml 605 ml Balance 501.25 ml 268.5 ml Intake IV Total 1056.25 ml 873.5 ml Output Urine Total 555 ml 605 ml Objective PHYSICAL EXAMINATION:. GENERAL: The patient is awake, responsive, and moaning in pain. HEAD AND NECK: Pupils are reactive to light. Extraocular movements are intact. NECK: Supple. No JVD. LUNGS: Good air entry. No wheezes or rhonchi. Coarse breath sounds. Decreased air in bases. ABDOMEN: Soft and not distended. Mildly obese. No rebound tenderness. Decreased bowel sounds. EXTREMITIES: No cyanosis, clubbing, or edema. NEUROLOGICAL: Cranial nerves II through XII grossly intact. The patient moving all extremities. RECTAL: Refused and deferred. GENITOURINARY: Refused and deferred. Assessment/Plan Assessment/Plan ASSESSMENT: 1. Abdominal pain associated with nausea and vomiting, Small bowel obstruction. 2. History of COPD. 3. Congestive heart failure. 4. Sick sinus syndrome with status post pacemaker. 5. Hypothyroidism. 6. Diabetes type 2. 7. Interstitial lung disease. 8. History of PE, status post IVC filter. 9. The patient has a history of acute kidney injury as well. PLAN: ICU statius. S/P expl lap, small bowel resection/anastomosis and lysis of adhesions on by Dr. Vigil General Surgery; Dr. Herrera, Pulmonary Critical Care; and Dr. Mesa from Gastroenterology. Code status is Full Code. Keep the patient NPO. IV hydration. We will monitor laboratory closely. DVT prophylaxis with heparin subcutaneous. Alcides Velazquez MD Jun 23, 2018 20:48
[2018-06-23] MEDS ORDERED: Tpn 2,000 ML IV SCH (21:00)
[2018-06-23] MEDS ORDERED: Miralax 17gm pkt ORAL PRN (21:15)
[2018-06-23] MEDS ORDERED: Hydromorphone 0.5mg/0.5ml inj IVP PRN (21:15)
[2018-06-23] MEDS ORDERED: LORazepam Inj 2mg/ml 1ml IV PRN (21:30)
[2018-06-23] MEDS ORDERED: Dyna-Hex 2% Top Sol 2oz TOPIC SCH (22:00)
[2018-06-23] MEDS ORDERED: Mylanta II UD 30ml ORAL PRN (23:30)
[2018-06-23] MEDS ORDERED: Promethazine HCl 25 MG in NS 55 ML IV PRN (23:45)
[2018-06-23] MEDS ORDERED: Promethazine HCl 12.5 MG in NS 55 ML IV PRN (23:45)
[2018-06-24] VITALS: BP 150/76
[2018-06-24 04:00] VITALS: BP 157/73
[2018-06-24] MEDS: Cyclobenzaprine 10mg Tab ORAL SCH ×3 (05:06→21:13)
[2018-06-24 05:23] LABS: BASOPHILS % (AUTO) 0.6 % (0.0-2.0); HEMATOCRIT 33.1 % (37.0-47.0); HEMOGLOBIN 10.5 G/DL (12.0-16.0); LYMPHOCYTES % (AUTO) 13.2 % (20.0-45.0); MEAN CORPUSCULAR VOLUME 87 FL (80-99); MONOCYTES % (AUTO) 5.1 % (1.0-10.0); NEUTROPHILS % (AUTO) 79.1 % (45.0-75.0); PLATELET COUNT 245 K/UL (150-450); WHITE BLOOD COUNT 9.1 K/UL (4.8-10.8)
[2018-06-24] MEDS: Piperacillin/Tazobactam 3.375 GM in NS 110 ML IVPB SCH ×3 (05:29→21:14)
[2018-06-24 06:04] LABS: ALANINE AMINOTRANSFERASE 20 U/L (12-78); ALBUMIN 1.8 G/DL (3.4-5.0); ALBUMIN/GLOBULIN RATIO 0.5 (1.0-2.7); ALKALINE PHOSPHATASE 119 U/L (46-116); ANION GAP 9 mmol/L (5-15); ASPARTATE AMINO TRANSFERASE 19 U/L (15-37); BILIRUBIN,TOTAL 0.5 MG/DL (0.2-1.0); BLOOD UREA NITROGEN 5 mg/dL (7-18); CALCIUM 7.8 MG/DL (8.5-10.1); CARBON DIOXIDE 26 MMOL/L (21-32); CHLORIDE 108 MMOL/L (98-107); CREATININE 0.5 MG/DL (0.55-1.30); SODIUM 143 MMOL/L (136-145)
--- NOTE | 2018-06-24 06:17 | NUR ---
NURSE NOTES: Paged Dr Brewer for K 3.0 awaiting for MD to call back.
--- NOTE | 2018-06-24 07:30 | NUR ---
NURSE NOTES: Patient received lying in bed, asleep, responsive to name, alert. On 2 Lpm NC, no acute respiratory distress,respirations even and unlabored. No complains of pain. Running D5 1/2 NS at 75 ml/hr infusing to right femoral TLC. Surgical incision to abdomen intact. NPO status. Pending TPN infusion. Bedrest, safety measures implemented, call light placed within reach. Sinus Tachycardia on the monitor. Will continue to monitor the patient.
--- NOTE | 2018-06-24 07:30 | NUR ---
HAND-OFF: Report given to LEVI Hernandez.
[2018-06-24 08:00] VITALS: BP 158/77
--- NOTE | 2018-06-24 09:00 | NUR ---
NURSE NOTES: Dr. Herrera made aware of results for labs. MD to place in order.
[2018-06-24] MEDS: Pantoprazole Inj IV SCH (09:26)
[2018-06-24] MEDS: Heparin 5000 units/ml inj SUBQ SCH ×2 (09:27→21:15)
[2018-06-24] MEDS: D5 1/2NS 1,000 ML IV SCH (09:28)
--- NOTE | 2018-06-24 09:30 | NUR ---
RD ASSESSMENT & RECOMMENDATIONS SEE CARE ACTIVITY FOR COMPLETE ASSESSMENT DAILY ESTIMATED NEEDS: Needs based on Surgery 61.4kg 25-30 kcals/kg 1737-3065 total kcals 1-2 g protein/kg 61-123 g total protein 25-30 mL/kg 2707-8164 total fluid mLs NUTRITION DIAGNOSIS: 1) Altered GI fxn r/t SBO as evidenced by s/p ex lap w/ bowel resection and lysis of adhesions, NPO, w/ an order for TPN. CURRENT DIET:NPO PO DIET RECOMMENDATIONS: Diet per surgeon PARENTERAL NUTRITION RECOMMENDATIONS: D/AA Rate: 66 IL Rate: 9 Total Rate: 75 Volume: 1800 % Dextrose: 15 % AA: 4.9 Energy (kcals/kg): 1550 Protein (g/kg protein): 77 Nonprotein KCALS: 1240 GIR (mg CHO/kg/min): 2.68 % Fat KCALS: 27.9 NCP: N Ratio: 100.8 TPN Comment: * D15% AA 4.9% @66ml/hr + IL20% @9ml/hr -> all 3:1, total of 75ml/hr. * Initiate TPN @ 25ml/hr x 6 hrs, advance 10ml q 4-6 hrs as tolerated to goal rate. * TPN @ goal provides 100% est kcal/prot needs. ADDITIONAL RECOMMENDATIONS: 1) CALIBRATED BEDSCALE WTS 2) Diet per surgery, s/p ex lap of bowel resection- now on TPN 3) Check lytes and LFTs daily w/ TPN 4) Monitor BGs closely w/ TPN- h/o DM .
--- NOTE | 2018-06-24 09:52 | Pulmonology Progress Note ---
Assessment/Plan Problems: (1) Small bowel obstruction (2) COPD (chronic obstructive pulmonary disease) (3) CHF (congestive heart failure) (4) Interstitial lung disease (5) Pacemaker (6) Hypothyroidism (7) Diabetes mellitus Assessment/Plan iv fluids NPO start TPN K supplelemetn titrate fio2 to sat of 92% check electrolytes respiratory treatment symptomatic treatment. Subjective ROS Limited/Unobtainable: No Constitutional: Reports: no symptoms HEENT: Repors: no symptoms Respiratory: Reports: no symptoms Allergies: Coded Allergies: ACETAMINOPHEN (Verified Allergy, Unknown, itching, 06/21/18) CODEINE (Verified Allergy, Unknown, 06/21/18) Uncoded Allergies: iodoform packing (Allergy, Unknown, redness, swelling, 06/21/18) Objective Last 24 Hour Vital Signs Date Time Temp Pulse Resp B/P (MAP) Pulse Ox O2 Delivery O2 Flow Rate FiO2 06/24/18 08:00 97.5 100 20 158/77 (104) 95 06/24/18 07:00 2.0 06/24/18 04:00 Nasal Cannula 2.0 Nasal Cannula 2.0 06/24/18 04:00 2.0 06/24/18 04:00 98.4 105 30 157/73 (101) 98 06/24/18 03:26 110 06/24/18 00:00 2.0 06/24/18 00:00 98.4 109 26 150/76 (100) 98 06/24/18 00:00 Nasal Cannula 2.0 Nasal Cannula 2.0 06/23/18 23:36 113 06/23/18 20:00 97.9 106 20 153/59 (90) 98 06/23/18 20:00 Nasal Cannula 2.0 Nasal Cannula 2.0 06/23/18 20:00 2.0 06/23/18 19:49 109 06/23/18 19:00 107 31 132/70 (90) 98 06/23/18 18:00 108 31 134/66 (88) 97 06/23/18 17:00 106 28 117/81 (93) 95 06/23/18 16:00 92 06/23/18 16:00 97.6 99 23 114/64 (81) 97 06/23/18 16:00 Nasal Cannula 2.0 Nasal Cannula 2.0 06/23/18 15:00 100 20 109/68 (82) 98 06/23/18 14:00 98 20 113/57 (75) 98 06/23/18 13:00 101 18 100/65 (77) 98 06/23/18 12:00 Nasal Cannula 2.0 Nasal Cannula 2.0 06/23/18 12:00 97 06/23/18 12:00 98.9 102 14 88/54 (65) 95 06/23/18 11:00 106 13 101/55 (70) 95 06/23/18 10:28 97.6 06/23/18 10:00 100 17 110/61 (77) 97 Intake and Output 06/23/18 06/24/18 19:00 07:00 Intake Total 935.0 ml 935.0 ml Output Total 775 ml 2300 ml Balance 160.0 ml -1365.0 ml Intake IV Total 935.0 ml 935.0 ml Output Urine Total 775 ml 2300 ml General Appearance: cachetic HEENT: normocephalic, atraumatic, anicteric Respiratory/Chest: chest wall non-tender, lungs clear Breasts: no masses Cardiovascular: normal rate Abdomen: normal bowel sounds, soft, non tender Genitourinary: normal external genitalia Extremities: no clubbing Skin: no ulcers Neurologic/Psychiatric: auto refinisher II-XII grossly normal Lymphatic: no neck adenopathy Microbiology Date/Time Source Procedure Growth Status 06/21/18 17:40 Sputum Gram Stain - Final Resulted 06/21/18 17:40 Sputum Culture - Preliminary Gram Negative Bacillus 1 Gram Negative Bacillus 2 Gram Negative Bacillus 3 Resulted Laboratory Tests 06/24/18 03:30: White Blood Count 9.1, Red Blood Count 3.80L, Hemoglobin 10.5L, Hematocrit 33.1L , Mean Corpuscular Volume 87, Mean Corpuscular Hemoglobin 27.6, Mean Corpuscular Hemoglobin Concent 31.7L, Red Cell Distribution Width 15.0H, Platelet Count 245, Mean Platelet Volume 7.7, Neutrophils (%) (Auto) 79.1H, Lymphocytes (%) (Auto) 13.2L, Monocytes (%) (Auto) 5.1, Eosinophils (%) (Auto) 2.0, Basophils (%) (Auto) 0.6, Sodium Level 143, Potassium Level 3.0L, Chloride Level 108H, Carbon Dioxide Level 26, Anion Gap 9, Blood Urea Nitrogen 5L, Creatinine 0.5L, Estimat Glomerular Filtration Rate > 60, Glucose Level 92, Calcium Level 7.8L, Total Bilirubin 0.5, Aspartate Amino Transf (AST/SGOT) 19, Alanine Aminotransferase (ALT/SGPT) 20, Alkaline Phosphatase 119H, Total Protein 5.2L, Albumin 1.8L, Globulin 3.4, Albumin/Globulin Ratio 0.5L Current Medications Medications (Trade) Dose Ordered Sig/Sandra Route PRN Reason Start Time Stop Time Status Last Admin Dose Admin Al Hydroxide/Mg Hydroxide (Mylanta II) 30 ml Q6H PRN ORAL dyspepsia 06/23/18 23:30 07/19/18 17:24 Chlorhexidine Gluconate (Chioma-Hex 2%) 1 applic DAILY@2000 TOPIC 06/23/18 22:00 07/23/18 21:59 06/23/18 22:00 Cyclobenzaprine HCl (Flexeril) 10 mg Q8HR ORAL 06/23/18 22:00 07/19/18 21:59 Dextrose 1,000 ml @ 0 mls/hr Q24H PRN IV PN interrupted or unavailable 06/24/18 21:00 07/23/18 20:59 Dextrose (Dextrose 50%) 25 ml Q30M PRN IV Hypoglycemia 06/23/18 20:30 07/19/18 17:25 Dextrose (Dextrose 50%) 25 ml Q30M PRN IV Hypoglycemia 06/23/18 20:45 07/23/18 15:44 Dextrose (Dextrose 50%) 50 ml Q30M PRN IV Hypoglycemia 06/23/18 20:30 07/19/18 17:25 Dextrose (Dextrose 50%) 50 ml Q30M PRN IV Hypoglycemia 06/23/18 20:45 07/23/18 15:44 Dextrose/Sodium Chloride 1,000 ml @ 75 mls/hr [id number] IV 06/23/18 21:00 07/19/18 20:59 06/24/18 09:28 Diphenhydramine HCl (Benadryl) 25 mg Q6H PRN ORAL Itching/Pruritis 06/23/18 23:30 07/19/18 17:25 Fat Emulsion Intravenous 216 ml/Amino Acids/ Electrolytes/ Dextrose 1,800 ml @ 75 mls/hr Q24H IV 06/24/18 20:00 07/24/18 19:59 UNV Gabapentin (Neurontin) 400 mg THREE TIMES A DAY ORAL 06/24/18 09:00 07/20/18 08:59 Heparin Sodium (Porcine) (Heparin 5000 units/ml) 5,000 units EVERY 12 HOURS SUBQ 06/23/18 21:00 07/20/18 08:59 06/24/18 09:27 Hydromorphone HCl (Dilaudid) 0.5 mg Q3H PRN IVP Pain Score 1-3 06/23/18 21:15 06/28/18 18:11 06/23/18 23:34 Hydromorphone HCl (Dilaudid) 1 mg Q3H PRN IVP pain score 4-6 06/23/18 21:15 06/28/18 18:10 Hydromorphone HCl (Dilaudid) 2 mg Q3H PRN IVP pain score 7-10 06/23/18 21:15 06/28/18 18:11 Levothyroxine Sodium (Synthroid) 100 mcg ACBREAKFAST ORAL 06/24/18 06:30 07/20/18 06:29 Lorazepam (Ativan 2mg/ml 1ml) 1 mg Q4H PRN IV agitation 06/23/18 21:30 06/26/18 17:26 Nitroglycerin (Ntg) 0.4 mg Q5M X 3 DOSES PRN SL Prn Chest Pain 06/23/18 20:15 07/19/18 17:26 Ondansetron HCl (Zofran) 4 mg Q6H PRN IVP Nausea & Vomiting 06/23/18 23:30 07/19/18 17:26 Pantoprazole (Protonix) 40 mg DAILY IV 06/24/18 09:00 07/20/18 08:59 06/24/18 09:26 Piperacillin Sod/ Tazobactam Sod 3.375 gm/Sodium Chloride 110 ml @ 27.5 mls/hr EVERY 8 HOURS IVPB 06/23/18 22:00 06/28/18 21:59 06/24/18 05:29 Polyethylene Glycol (Miralax) 17 gm HSPRN PRN ORAL Constipation 06/23/18 21:15 07/19/18 21:14 Promethazine HCl 12.5 mg/Sodium Chloride 55.5 ml @ 110 mls/hr Q6H PRN IV Refractory N/V 06/23/18 23:45 07/19/18 17:37 Promethazine HCl 25 mg/Sodium Chloride 56 ml @ 110 mls/hr Q6H PRN IV Refractory N/V 06/23/18 23:45 07/19/18 17:38 Temazepam (Restoril) 15 mg HSPRN PRN ORAL Insomnia 06/23/18 21:15 06/26/18 21:14 Quincy Herrera MD Jun 24, 2018 09:52
--- NOTE | 2018-06-24 10:28 | GI Progress Note ---
Assessment/Plan Problems: (1) S/P small bowel resection ICD Codes: Z90.49 - Acquired absence of other specified parts of digestive tract SNOMED: 56888472, [id number], [id number] (2) Abdominal pain ICD Codes: R10.9 - Unspecified abdominal pain SNOMED: 60206145 (3) Hypothyroidism ICD Codes: E03.9 - Hypothyroidism, unspecified SNOMED: 67130584 (4) Chronic pain ICD Codes: G89.29 - Other chronic pain SNOMED: 29498769 (5) Diabetes mellitus ICD Codes: E11.9 - Type 2 diabetes mellitus without complications SNOMED: 47482571 Status: stable Status Narrative Discussed with Dr. Mesa Assessment/Plan Assessment - SBO - s/p exlap - abd pain Recommendations -Diet per surgery - post op care - Surgical follow up - IVF - Follow exam The patient was seen and examined at bedside and all new and available data was reviewed in the patients chart. I agree with the above findings, impression and plan. (Patient seen earlier today. Signature stamp does not reflect patient encounter time.). - Olivier Mesa MD Subjective Gastrointestinal/Abdominal: Reports: abdominal pain Objective Last 24 Hour Vital Signs Date Time Temp Pulse Resp B/P (MAP) Pulse Ox O2 Delivery O2 Flow Rate FiO2 06/24/18 08:00 97.5 100 20 158/77 (104) 95 06/24/18 07:00 2.0 06/24/18 04:00 Nasal Cannula 2.0 Nasal Cannula 2.0 06/24/18 04:00 2.0 06/24/18 04:00 98.4 105 30 157/73 (101) 98 06/24/18 03:26 110 06/24/18 00:00 2.0 06/24/18 00:00 98.4 109 26 150/76 (100) 98 06/24/18 00:00 Nasal Cannula 2.0 Nasal Cannula 2.0 06/23/18 23:36 113 06/23/18 20:00 97.9 106 20 153/59 (90) 98 06/23/18 20:00 Nasal Cannula 2.0 Nasal Cannula 2.0 06/23/18 20:00 2.0 06/23/18 19:49 109 06/23/18 19:00 107 31 132/70 (90) 98 06/23/18 18:00 108 31 134/66 (88) 97 06/23/18 17:00 106 28 117/81 (93) 95 06/23/18 16:00 92 06/23/18 16:00 97.6 99 23 114/64 (81) 97 06/23/18 16:00 Nasal Cannula 2.0 Nasal Cannula 2.0 06/23/18 15:00 100 20 109/68 (82) 98 06/23/18 14:00 98 20 113/57 (75) 98 06/23/18 13:00 101 18 100/65 (77) 98 06/23/18 12:00 Nasal Cannula 2.0 Nasal Cannula 2.0 06/23/18 12:00 97 06/23/18 12:00 98.9 102 14 88/54 (65) 95 06/23/18 11:00 106 13 101/55 (70) 95 Intake and Output 06/23/18 06/24/18 19:00 07:00 Intake Total 935.0 ml 935.0 ml Output Total 775 ml 2300 ml Balance 160.0 ml -1365.0 ml Intake IV Total 935.0 ml 935.0 ml Output Urine Total 775 ml 2300 ml Laboratory Tests Test 06/24/18 03:30 White Blood Count 9.1 K/UL (4.8-10.8) Red Blood Count 3.80 M/UL (4.20-5.40) L Hemoglobin 10.5 G/DL (12.0-16.0) L Hematocrit 33.1 % (37.0-47.0) L Mean Corpuscular Volume 87 FL (80-99) Mean Corpuscular Hemoglobin 27.6 PG (27.0-31.0) Mean Corpuscular Hemoglobin Concent 31.7 G/DL (32.0-36.0) L Red Cell Distribution Width 15.0 % (11.6-14.8) H Platelet Count 245 K/UL (150-450) Mean Platelet Volume 7.7 FL (6.5-10.1) Neutrophils (%) (Auto) 79.1 % (45.0-75.0) H Lymphocytes (%) (Auto) 13.2 % (20.0-45.0) L Monocytes (%) (Auto) 5.1 % (1.0-10.0) Eosinophils (%) (Auto) 2.0 % (0.0-3.0) Basophils (%) (Auto) 0.6 % (0.0-2.0) Sodium Level 143 MMOL/L (136-145) Potassium Level 3.0 MMOL/L (3.5-5.1) L Chloride Level 108 MMOL/L (98-107) H Carbon Dioxide Level 26 MMOL/L (21-32) Anion Gap 9 mmol/L (5-15) Blood Urea Nitrogen 5 mg/dL (7-18) L Creatinine 0.5 MG/DL (0.55-1.30) L Estimat Glomerular Filtration Rate > 60 mL/min (>60) Glucose Level 92 MG/DL (74-106) Calcium Level 7.8 MG/DL (8.5-10.1) L Total Bilirubin 0.5 MG/DL (0.2-1.0) Aspartate Amino Transf (AST/SGOT) 19 U/L (15-37) Alanine Aminotransferase (ALT/SGPT) 20 U/L (12-78) Alkaline Phosphatase 119 U/L (46-116) H Total Protein 5.2 G/DL (6.4-8.2) L Albumin 1.8 G/DL (3.4-5.0) L Globulin 3.4 g/dL Albumin/Globulin Ratio 0.5 (1.0-2.7) L Height (Feet): 5 Height (Inches): 3.00 Weight (Pounds): 135 General Appearance: WD/WN, no apparent distress, alert Cardiovascular: normal rate Respiratory/Chest: normal breath sounds, no respiratory distress Abdominal Exam: normal bowel sounds, non tender, soft, incision site Extremities: normal range of motion, non-tender Shelby Roberson [employer] Jun 24, 2018 10:28
[2018-06-24 12:00] VITALS: BP 124/78
[2018-06-24] MEDS ORDERED: Lidocaine 1% Plain 30 ml INJ PRN (12:15)
[2018-06-24] MEDS ORDERED: Heparin1,000 units/500ml Premix(Conc:2 units/ml) IV PRN (12:15)
--- NOTE | 2018-06-24 12:15 | NUR ---
NURSE NOTES: Dr. Herrera made aware of pending TPN this evening, patient has a femoral TLCMD ordered for PICC line.
--- NOTE | 2018-06-24 12:57 | Cardiology Progress Note ---
Assessment/Plan Assessment/Plan very coarse crakles anteriroly on the lung exam not post will check ekg , echo , trop and probnp no sx of acs [id number] Objective Last 24 Hour Vital Signs Date Time Temp Pulse Resp B/P (MAP) Pulse Ox O2 Delivery O2 Flow Rate FiO2 06/24/18 09:38 97 Nasal Cannula 2.0 28 06/24/18 09:38 Nasal Cannula 2.0 28 06/24/18 08:00 110 06/24/18 08:00 97.5 100 20 158/77 (104) 95 06/24/18 07:00 2.0 06/24/18 04:00 Nasal Cannula 2.0 Nasal Cannula 2.0 06/24/18 04:00 2.0 06/24/18 04:00 98.4 105 30 157/73 (101) 98 06/24/18 03:26 110 06/24/18 00:00 2.0 06/24/18 00:00 98.4 109 26 150/76 (100) 98 06/24/18 00:00 Nasal Cannula 2.0 Nasal Cannula 2.0 06/23/18 23:36 113 06/23/18 20:00 97.9 106 20 153/59 (90) 98 06/23/18 20:00 Nasal Cannula 2.0 Nasal Cannula 2.0 06/23/18 20:00 2.0 06/23/18 19:49 109 06/23/18 19:00 107 31 132/70 (90) 98 06/23/18 18:00 108 31 134/66 (88) 97 06/23/18 17:00 106 28 117/81 (93) 95 06/23/18 16:00 92 06/23/18 16:00 97.6 99 23 114/64 (81) 97 06/23/18 16:00 Nasal Cannula 2.0 Nasal Cannula 2.0 06/23/18 15:00 100 20 109/68 (82) 98 06/23/18 14:00 98 20 113/57 (75) 98 06/23/18 13:00 101 18 100/65 (77) 98 Intake and Output 06/23/18 06/24/18 19:00 07:00 Intake Total 935.0 ml 935.0 ml Output Total 775 ml 2300 ml Balance 160.0 ml -1365.0 ml Intake IV Total 935.0 ml 935.0 ml Output Urine Total 775 ml 2300 ml Laboratory Tests Test 06/24/18 03:30 White Blood Count 9.1 K/UL (4.8-10.8) Red Blood Count 3.80 M/UL (4.20-5.40) L Hemoglobin 10.5 G/DL (12.0-16.0) L Hematocrit 33.1 % (37.0-47.0) L Mean Corpuscular Volume 87 FL (80-99) Mean Corpuscular Hemoglobin 27.6 PG (27.0-31.0) Mean Corpuscular Hemoglobin Concent 31.7 G/DL (32.0-36.0) L Red Cell Distribution Width 15.0 % (11.6-14.8) H Platelet Count 245 K/UL (150-450) Mean Platelet Volume 7.7 FL (6.5-10.1) Neutrophils (%) (Auto) 79.1 % (45.0-75.0) H Lymphocytes (%) (Auto) 13.2 % (20.0-45.0) L Monocytes (%) (Auto) 5.1 % (1.0-10.0) Eosinophils (%) (Auto) 2.0 % (0.0-3.0) Basophils (%) (Auto) 0.6 % (0.0-2.0) Sodium Level 143 MMOL/L (136-145) Potassium Level 3.0 MMOL/L (3.5-5.1) L Chloride Level 108 MMOL/L (98-107) H Carbon Dioxide Level 26 MMOL/L (21-32) Anion Gap 9 mmol/L (5-15) Blood Urea Nitrogen 5 mg/dL (7-18) L Creatinine 0.5 MG/DL (0.55-1.30) L Estimat Glomerular Filtration Rate > 60 mL/min (>60) Glucose Level 92 MG/DL (74-106) Calcium Level 7.8 MG/DL (8.5-10.1) L Total Bilirubin 0.5 MG/DL (0.2-1.0) Aspartate Amino Transf (AST/SGOT) 19 U/L (15-37) Alanine Aminotransferase (ALT/SGPT) 20 U/L (12-78) Alkaline Phosphatase 119 U/L (46-116) H Total Protein 5.2 G/DL (6.4-8.2) L Albumin 1.8 G/DL (3.4-5.0) L Globulin 3.4 g/dL Albumin/Globulin Ratio 0.5 (1.0-2.7) L Microbiology Date/Time Source Procedure Growth Status 06/21/18 17:40 Sputum Gram Stain - Final Resulted 06/21/18 17:40 Sputum Culture - Preliminary Gram Negative Bacillus 1 Gram Negative Bacillus 2 Gram Negative Bacillus 3 Resulted Chris Elias MD Jun 24, 2018 12:57
--- NOTE | 2018-06-24 14:06 | NUR ---
CASE MANAGEMENT:REVIEW 06/24/18 SI: SBO. POD #3 S/P LYSIS OF ADHESIONS,SBO RESECTION/ANASTOMOSIS 98.1 98 21 124/78 95% ON 2L/NC H/H-10.5/33.1 K-3.0 IS: TPN/IL @75/HR IV KCL Q2HRS X2 BAGS IV ZOSYN Q8HRS IV PROTONIX QD IVF@75/HR HEPARIN SQ Q12 SDU STATUS PLAN: NPO MAY REQUIRE TPN
--- NOTE | 2018-06-24 14:42 | NUR ---
*-* INSURANCE *--* ALL CLINICALS AND REVIEWS HAVE BEEN FAXED TO: [facility] [phone] F [phone]
--- NOTE | 2018-06-24 15:00 | NUR ---
NURSE NOTES: Right Upper Arm PICC inserted, pending x-ray results to confirm placement.
--- NOTE | 2018-06-24 15:20 | General Surgery Progress Note ---
General Surgery-Progress Note Subjective Procedure Performed ex lap, lysis of adhesions and small bowel resection with primary anastomosis Symptoms: improved, BM Objective Last 24 Hour Vital Signs Date Time Temp Pulse Resp B/P (MAP) Pulse Ox O2 Delivery O2 Flow Rate FiO2 06/24/18 12:00 Nasal Cannula 2.0 Nasal Cannula 2.0 06/24/18 12:00 98.1 98 21 124/78 (93) 95 06/24/18 12:00 2.0 06/24/18 12:00 98 06/24/18 09:38 97 Nasal Cannula 2.0 28 06/24/18 09:38 Nasal Cannula 2.0 28 06/24/18 08:00 110 06/24/18 08:00 97.5 100 20 158/77 (104) 95 06/24/18 08:00 Nasal Cannula 2.0 Nasal Cannula 2.0 06/24/18 07:00 2.0 06/24/18 04:00 Nasal Cannula 2.0 Nasal Cannula 2.0 06/24/18 04:00 2.0 06/24/18 04:00 98.4 105 30 157/73 (101) 98 06/24/18 03:26 110 06/24/18 00:00 2.0 06/24/18 00:00 98.4 109 26 150/76 (100) 98 06/24/18 00:00 Nasal Cannula 2.0 Nasal Cannula 2.0 06/23/18 23:36 113 06/23/18 20:00 97.9 106 20 153/59 (90) 98 06/23/18 20:00 Nasal Cannula 2.0 Nasal Cannula 2.0 06/23/18 20:00 2.0 06/23/18 19:49 109 06/23/18 19:00 107 31 132/70 (90) 98 06/23/18 18:00 108 31 134/66 (88) 97 06/23/18 17:00 106 28 117/81 (93) 95 06/23/18 16:00 92 06/23/18 16:00 97.6 99 23 114/64 (81) 97 06/23/18 16:00 Nasal Cannula 2.0 Nasal Cannula 2.0 I&O Intake and Output 06/23/18 06/24/18 19:00 07:00 Intake Total 935.0 ml 935.0 ml Output Total 775 ml 2300 ml Balance 160.0 ml -1365.0 ml Intake IV Total 935.0 ml 935.0 ml Output Urine Total 775 ml 2300 ml Dressing: dry Respiratory: clear Abdomen: soft, flat, present bowel sounds Extremities: no tenderness Laboratory Tests Test 06/24/18 03:30 White Blood Count 9.1 K/UL (4.8-10.8) Red Blood Count 3.80 M/UL (4.20-5.40) L Hemoglobin 10.5 G/DL (12.0-16.0) L Hematocrit 33.1 % (37.0-47.0) L Mean Corpuscular Volume 87 FL (80-99) Mean Corpuscular Hemoglobin 27.6 PG (27.0-31.0) Mean Corpuscular Hemoglobin Concent 31.7 G/DL (32.0-36.0) L Red Cell Distribution Width 15.0 % (11.6-14.8) H Platelet Count 245 K/UL (150-450) Mean Platelet Volume 7.7 FL (6.5-10.1) Neutrophils (%) (Auto) 79.1 % (45.0-75.0) H Lymphocytes (%) (Auto) 13.2 % (20.0-45.0) L Monocytes (%) (Auto) 5.1 % (1.0-10.0) Eosinophils (%) (Auto) 2.0 % (0.0-3.0) Basophils (%) (Auto) 0.6 % (0.0-2.0) Sodium Level 143 MMOL/L (136-145) Potassium Level 3.0 MMOL/L (3.5-5.1) L Chloride Level 108 MMOL/L (98-107) H Carbon Dioxide Level 26 MMOL/L (21-32) Anion Gap 9 mmol/L (5-15) Blood Urea Nitrogen 5 mg/dL (7-18) L Creatinine 0.5 MG/DL (0.55-1.30) L Estimat Glomerular Filtration Rate > 60 mL/min (>60) Glucose Level 92 MG/DL (74-106) Calcium Level 7.8 MG/DL (8.5-10.1) L Total Bilirubin 0.5 MG/DL (0.2-1.0) Aspartate Amino Transf (AST/SGOT) 19 U/L (15-37) Alanine Aminotransferase (ALT/SGPT) 20 U/L (12-78) Alkaline Phosphatase 119 U/L (46-116) H Total Protein 5.2 G/DL (6.4-8.2) L Albumin 1.8 G/DL (3.4-5.0) L Globulin 3.4 g/dL Albumin/Globulin Ratio 0.5 (1.0-2.7) L Assessment Additional Comments s/p bowel resection Plan Additional Comments clear liquid Moshe Bryan MD Jun 24, 2018 15:20
[2018-06-24] MEDS: HYDROmorphone 1mg/ml Carpuject IVP PRN (15:44)
[2018-06-24 16:00] VITALS: BP 127/75
--- NOTE | 2018-06-24 17:15 | Diagnostic Imaging Report ---
Indications: Needs long-term IV access Technique: Procedure performed at bedside. Procedural timeout performed. Ultrasound confirms patent compressible right brachial vein. Total sterile technique, including sterile probe cover and sterile gel, sterile gloves, hand hygiene, hat, mask,, sterile gown, large sterile drape, and preparation with 2% chlorhexidine utilized. Local anesthesia with 1% lidocaine. Under real-time ultrasound guidance, puncture right vein using 21-gauge needle, passage 0.018 guidewire, exchange for 4 Danish peel-away sheath. 4 Danish Bard dual-lumen power PICC cut to 37 cm. It was inserted through the peel-away sheath. Peel-away sheath and guidewire removed. Catheter fixed to the skin. Both catheter ports aspirated and flushed. Patient tolerated procedure well, without immediate complication. Followup chest x-ray obtained, documents catheter tip position at the cavoatrial junction Impression: Successful bedside placement of right arm PICC under sonographic guidance, as described above.
--- NOTE | 2018-06-24 17:38 | Internal Med Progress Note ---
Subjective Date of Service: Jun 24, 2018 Physician Name Alcides Velazquez Attending Physician Satinder Brewer MD Current Medications Medications (Trade) Dose Ordered Sig/Sandra Route PRN Reason Start Time Stop Time Status Last Admin Dose Admin Al Hydroxide/Mg Hydroxide (Mylanta II) 30 ml Q6H PRN ORAL dyspepsia 06/23/18 23:30 07/19/18 17:24 Chlorhexidine Gluconate (Chioma-Hex 2%) 1 applic DAILY@2000 TOPIC 06/24/18 20:00 07/24/18 19:59 Cyclobenzaprine HCl (Flexeril) 10 mg Q8HR ORAL 06/23/18 22:00 07/19/18 21:59 Dextrose 1,000 ml @ 0 mls/hr Q24H PRN IV PN interrupted or unavailable 06/24/18 21:00 07/23/18 20:59 Dextrose (Dextrose 50%) 25 ml Q30M PRN IV Hypoglycemia 06/23/18 20:45 07/23/18 15:44 Dextrose (Dextrose 50%) 50 ml Q30M PRN IV Hypoglycemia 06/23/18 20:45 07/23/18 15:44 Dextrose/Sodium Chloride 1,000 ml @ 75 mls/hr [id number] IV 06/23/18 21:00 06/24/18 19:59 06/24/18 09:28 Diphenhydramine HCl (Benadryl) 25 mg Q6H PRN ORAL Itching/Pruritis 06/23/18 23:30 07/19/18 17:25 Gabapentin (Neurontin) 400 mg THREE TIMES A DAY ORAL 06/24/18 09:00 07/20/18 08:59 06/24/18 16:48 Heparin Sodium (Porcine) (Heparin 5000 units/ml) 5,000 units EVERY 12 HOURS SUBQ 06/23/18 21:00 07/20/18 08:59 06/24/18 09:27 Heparin Sodium/ Sodium Chloride (Heparin 1000 units/500ml Premix) 1,000 unit ONCE PRN IV picc line placement 06/24/18 12:15 06/25/18 12:14 Hydromorphone HCl (Dilaudid) 0.5 mg Q3H PRN IVP Pain Score 1-3 06/23/18 21:15 06/28/18 18:11 06/23/18 23:34 Hydromorphone HCl (Dilaudid) 1 mg Q3H PRN IVP pain score 4-6 06/23/18 21:15 06/28/18 18:10 06/24/18 15:44 Hydromorphone HCl (Dilaudid) 2 mg Q3H PRN IVP pain score 7-10 06/23/18 21:15 06/28/18 18:11 Levothyroxine Sodium (Synthroid) 100 mcg ACBREAKFAST ORAL 06/24/18 06:30 07/20/18 06:29 Lidocaine HCl (Xylocaine 1% 30ml) 30 ml ONCE PRN INJ picc line placement 06/24/18 12:15 06/25/18 12:14 Lorazepam (Ativan 2mg/ml 1ml) 1 mg Q4H PRN IV agitation 06/23/18 21:30 06/26/18 17:26 Nitroglycerin (Ntg) 0.4 mg Q5M X 3 DOSES PRN SL Prn Chest Pain 06/23/18 20:15 07/19/18 17:26 Ondansetron HCl (Zofran) 4 mg Q6H PRN IVP Nausea & Vomiting 06/23/18 23:30 07/19/18 17:26 Pantoprazole (Protonix) 40 mg DAILY IV 06/24/18 09:00 07/20/18 08:59 06/24/18 09:26 Piperacillin Sod/ Tazobactam Sod 3.375 gm/Sodium Chloride 110 ml @ 27.5 mls/hr EVERY 8 HOURS IVPB 06/23/18 22:00 06/28/18 21:59 06/24/18 14:54 Polyethylene Glycol (Miralax) 17 gm HSPRN PRN ORAL Constipation 06/23/18 21:15 07/19/18 21:14 Promethazine HCl 12.5 mg/Sodium Chloride 55.5 ml @ 110 mls/hr Q6H PRN IV Refractory N/V 06/23/18 23:45 07/19/18 17:37 Promethazine HCl 25 mg/Sodium Chloride 56 ml @ 110 mls/hr Q6H PRN IV Refractory N/V 06/23/18 23:45 07/19/18 17:38 Temazepam (Restoril) 15 mg HSPRN PRN ORAL Insomnia 06/23/18 21:15 06/26/18 21:14 Allergies: Coded Allergies: ACETAMINOPHEN (Verified Allergy, Unknown, itching, 06/21/18) CODEINE (Verified Allergy, Unknown, 06/21/18) Uncoded Allergies: iodoform packing (Allergy, Unknown, redness, swelling, 06/21/18) ROS Limited/Unobtainable: No Constitutional: Reports: no symptoms HEENT: Reports: no symptoms Cardiovascular: Reports: no symptoms Respiratory: Reports: no symptoms Gastrointestinal/Abdominal: Reports: abdominal pain Genitourinary: Reports: no symptoms Neurologic/Psychiatric: Reports: no symptoms Subjective 68 YO F admitted with abdominal pain. Now small bowel obstruction. S/P exploratory laparotomy, lysis of adhesions and small bowel resection/ anastomosis 06/21/18. JACQUELYN. Cover for Int Med-Dr Brewer Objective Last Vital Signs Date Time Temp Pulse Resp B/P (MAP) Pulse Ox O2 Delivery O2 Flow Rate FiO2 06/24/18 12:00 Nasal Cannula 2.0 Nasal Cannula 2.0 06/24/18 12:00 98.1 98 21 124/78 (93) 95 06/24/18 09:38 28 Laboratory Tests Test 06/24/18 03:30 White Blood Count 9.1 K/UL (4.8-10.8) Red Blood Count 3.80 M/UL (4.20-5.40) L Hemoglobin 10.5 G/DL (12.0-16.0) L Hematocrit 33.1 % (37.0-47.0) L Mean Corpuscular Volume 87 FL (80-99) Mean Corpuscular Hemoglobin 27.6 PG (27.0-31.0) Mean Corpuscular Hemoglobin Concent 31.7 G/DL (32.0-36.0) L Red Cell Distribution Width 15.0 % (11.6-14.8) H Platelet Count 245 K/UL (150-450) Mean Platelet Volume 7.7 FL (6.5-10.1) Neutrophils (%) (Auto) 79.1 % (45.0-75.0) H Lymphocytes (%) (Auto) 13.2 % (20.0-45.0) L Monocytes (%) (Auto) 5.1 % (1.0-10.0) Eosinophils (%) (Auto) 2.0 % (0.0-3.0) Basophils (%) (Auto) 0.6 % (0.0-2.0) Sodium Level 143 MMOL/L (136-145) Potassium Level 3.0 MMOL/L (3.5-5.1) L Chloride Level 108 MMOL/L (98-107) H Carbon Dioxide Level 26 MMOL/L (21-32) Anion Gap 9 mmol/L (5-15) Blood Urea Nitrogen 5 mg/dL (7-18) L Creatinine 0.5 MG/DL (0.55-1.30) L Estimat Glomerular Filtration Rate > 60 mL/min (>60) Glucose Level 92 MG/DL (74-106) Calcium Level 7.8 MG/DL (8.5-10.1) L Total Bilirubin 0.5 MG/DL (0.2-1.0) Aspartate Amino Transf (AST/SGOT) 19 U/L (15-37) Alanine Aminotransferase (ALT/SGPT) 20 U/L (12-78) Alkaline Phosphatase 119 U/L (46-116) H Total Protein 5.2 G/DL (6.4-8.2) L Albumin 1.8 G/DL (3.4-5.0) L Globulin 3.4 g/dL Albumin/Globulin Ratio 0.5 (1.0-2.7) L Microbiology Date/Time Source Procedure Growth Status 06/21/18 17:40 Sputum Gram Stain - Final Resulted 06/21/18 17:40 Sputum Culture - Preliminary Gram Negative Bacillus 1 Gram Negative Bacillus 2 Gram Negative Bacillus 3 Resulted Intake and Output 06/23/18 06/24/18 19:00 07:00 Intake Total 935.0 ml 935.0 ml Output Total 775 ml 2300 ml Balance 160.0 ml -1365.0 ml Intake IV Total 935.0 ml 935.0 ml Output Urine Total 775 ml 2300 ml Objective PHYSICAL EXAMINATION:. GENERAL: The patient is awake, responsive, and moaning in pain. HEAD AND NECK: Pupils are reactive to light. Extraocular movements are intact. NECK: Supple. No JVD. LUNGS: Good air entry. No wheezes or rhonchi. Coarse breath sounds. Decreased air in bases. ABDOMEN: Soft and not distended. Mildly obese. No rebound tenderness. Decreased bowel sounds. EXTREMITIES: No cyanosis, clubbing, or edema. NEUROLOGICAL: Cranial nerves II through XII grossly intact. The patient moving all extremities. RECTAL: Refused and deferred. GENITOURINARY: Refused and deferred. Assessment/Plan Assessment/Plan ASSESSMENT: 1. Abdominal pain associated with nausea and vomiting, Small bowel obstruction. 2. History of COPD. 3. Congestive heart failure. 4. Sick sinus syndrome with status post pacemaker. 5. Hypothyroidism. 6. Diabetes type 2. 7. Interstitial lung disease. 8. History of PE, status post IVC filter. 9. The patient has a history of acute kidney injury as well. PLAN: ICU statius. S/P expl lap, small bowel resection/anastomosis and lysis of adhesions on by Dr. Vigil General Surgery; Dr. Herrera, Pulmonary Critical Care; and Dr. Mesa from Gastroenterology. Code status is Full Code. Keep the Clear liquid diet. IV hydration. We will monitor laboratory closely. DVT prophylaxis with heparin subcutaneous. Alcides Velazquez MD Jun 24, 2018 17:38
--- NOTE | 2018-06-24 19:28 | NUR ---
NURSE NOTES: Received patient from [facility]. Patient is sitting in bed and eating. Patient is on 2L nasal cannula and showing no distress. Will continue plan of care.
[2018-06-24 20:00] VITALS: BP 160/82
[2018-06-24] MEDS ORDERED: Dyna-Hex 2% Top Sol 2oz TOPIC SCH ×2 (20:00)
[2018-06-24] MEDS ORDERED: [UNRECOGNIZED DRUG - NUTRITION] IV SCH ×2 (20:00)
--- NOTE | 2018-06-24 20:45 | Consultation ---
DATE OF CONSULTATION: 06/24/2018 CARDIOLOGY CONSULTATION CONSULTING PHYSICIAN: Chris Elias M.D. REFERRING PHYSICIAN: Satinder Brewer M.D. REASON FOR REFERRAL: Possible congestive heart failure. HISTORY OF PRESENT ILLNESS: This is an elderly female, who has had multiple medical problems as delineated below. The patient was admitted to the hospital because of recurrent nausea and vomiting associated with abdominal pain progressively worse over several days with history of small bowel obstruction a few years ago and was noted to be tachycardic and again diagnosed with small-bowel obstruction on CT scan. Subsequently, has undergone surgery by Dr. Bryan with lysis of adhesions and small-bowel resection with primary anastomosis. She actually denies any chest pain. Denies any shortness of breath. She uses 2 to 3 pillows for comfort because of prior neck surgeries. She does not really walk. She does get up and stay in a wheelchair and stays in the bed most of the time. She apparently has a history of being homeless. PAST MEDICAL HISTORY: Obtained from review of the records at [facility]. She has a history of morbid obesity, status post gastric bypass surgery in 2003, osteoporosis of the left hip, osteopenia of the and spine, chronic right hip pain, status post right total hip replacement in August of 2007, subsequently infection with methicillin-sensitive Staphylococcus aureus resolved, and explantation of the right total hip and debridement and placement of antibiotic spacers in 2008. She has spondylolisthesis and multiple L3-L5 fascicular nerve blocks, history of hypothyroidism, orthostatic hypotension, anemia, mental illness, stroke, asthma, cervical cancer, blood transfusion, anxiety, bones disease, depression, and ulcer. The patient does have a history of DVT status post IVC filter placement. The patient does have a history of permanent pacemaker implantation. PAST SURGICAL HISTORY: Surgeries include total hip replacement, right groin mole excised, laparoscopic gastric bypass surgery, fusion instrumentation of L5 and S1, allograft and bone stimulator placement in 1999, multiple back surgeries, status post cholecystectomy, appendectomy, cervical cone biopsy, arthroscopic knee surgery, and tubal ligation. ALLERGIES: Codeine, iodoform, catgut sutures, and Tylenol. SOCIAL HISTORY: She does not smoke or drink at this time. REVIEW OF SYSTEMS: She is feeling better after surgery. She does not have any nausea or vomiting and no abdominal pain. No diarrhea and no constipation she says.PULMONARY: Denies any coughing or wheezing. CONSTITUTIONAL: Denies any fever, chills, or night sweats. NEUROLOGIC: She denies. PHYSICAL EXAMINATION: GENERAL: Shows to be elderly female, in no respiratory distress. She is lying down approximately 20 degrees head of bed elevation. VITAL SIGNS: Blood pressure is 158/77 with a heart rate of 100 and temperature 97.5. NECK: Supple. No jugular venous distention. LUNGS: Posteriorly, she is some better although there is significant very coarse crackles noted in the anterior left and right upper lobes with some expiratory wheezes being noted. CARDIAC: S1 is normal. S2 is normal. Regular rate and rhythm. A faint systolic ejection murmur is noted. No RV lifts, heaves, thrills, or gallops noted. ABDOMEN: Soft. There is a surgical dressing in place. EXTREMITIES: Do not have any evidence of any clubbing, cyanosis, nor is there any edema. NEUROLOGICAL: She is awake, alert, and responsive. LABORATORY AND DIAGNOSTIC DATA: White count 9, hemoglobin 10.5, and a platelet count 245,000. Blood gases, pH is 7.37, pCO2 44, pO2 of 87, and bicarbonate of 23. Sodium is 143, potassium 3.0, chloride 108, bicarb 26, BUN of 5, creatinine 0.5, and a glucose of 92. Calcium is 7.8. Magnesium was 1.5. Phosphorus is 1.8. Alkaline phosphate is 119. Albumin is down to 1.8. Coags, INR was 1 and PTT of 24 and 28. Her urinalysis shows squamous epithelial cells to be occasional and 5 to 10 wbc's. An x-rays have been performed. A chest x-ray performed yesterday showed bilateral diffuse interstitial and airspace diseases, stable or slightly worse compared to previous study. She did have a CT scan of abdomen and pelvis on 06/19/2018. It indicate that there is an IVC filter that is in place. Her electrocardiogram from 06/20/2018 shows sinus tachycardia, right bundle-branch conduction defect, and left anterior fascicular block consistent with bifascicular heart block. ASSESSMENT AND PLAN: 1. Small-bowel obstruction status post surgery. 2. History of DVT status post IVC filter. 3. History of gastric bypass surgery. 4. Orthostatic hypotension. 5. History of anemia. 6. History of stroke. 7. History of asthma. 8. History of kidney disease. 9. History of infected hardware post hip replacement. PLAN: This patient was seen in cardiac consultation. The patient does not appear to complain of any shortness of breath. She has very coarse crackles that are located mainly anteriorly, somewhat unusual for congestive heart failure. An echocardiogram will be ordered. An EKG will also be repeated. A set of cardiac enzymes will be ordered and natriuretic peptide will also be ordered. She is on TPN at this time because of her bowel surgery. If natriuretic peptide is also elevated then that may make a case for possible on diuretics especially since her blood pressure is elevated. But of concern is that she really does not have any posterior crackles, everything is anteriorly. She may need a pacemaker interrogation at some point. It does appear that the pacemaker has been placed subsequent to her prior admission here in 2016 as a chest x-ray did not have a pacemaker at that time. So, this pacemaker is relatively new. I will follow the patient along with you. Chris Elias M.D. DR: CONRADO JOB#: [id number] CC:
[2018-06-24] MEDS ORDERED: Dextrose 10% 1,000 ML IV PRN (21:00)
[2018-06-24] MEDS ORDERED: NS 500ML ONE (21:41)
[2018-06-24] MEDS ORDERED: NS 275ml ONE (21:41)
[2018-06-24] MEDS ORDERED: Tubing IV Secondary IV ONE (21:41)
[2018-06-25] VITALS: BP 149/78
[2018-06-25] MEDS: HYDROmorphone 1mg/ml Carpuject IVP PRN (01:00)
[2018-06-25 04:00] VITALS: BP 104/62
[2018-06-25 04:19] LABS: ALANINE AMINOTRANSFERASE 18 U/L (12-78); ALBUMIN 1.9 G/DL (3.4-5.0); ALBUMIN/GLOBULIN RATIO 0.5 (1.0-2.7); ALKALINE PHOSPHATASE 107 U/L (46-116); ANION GAP 4 mmol/L (5-15); ASPARTATE AMINO TRANSFERASE 17 U/L (15-37); BILIRUBIN,TOTAL 0.5 MG/DL (0.2-1.0); BLOOD UREA NITROGEN 3 mg/dL (7-18); CALCIUM 6.4 MG/DL (8.5-10.1); CARBON DIOXIDE 32 MMOL/L (21-32); CHLORIDE 105 MMOL/L (98-107); CREATININE 0.6 MG/DL (0.55-1.30); PHOSPHORUS 2.3 MG/DL (2.5-4.9); POTASSIUM 4.2 MMOL/L (3.5-5.1); SODIUM 141 MMOL/L (136-145)
[2018-06-25 04:47] LABS: BASOPHILS % (AUTO) 1.2 % (0.0-2.0); EOSINOPHILS % (AUTO) 2.3 % (0.0-3.0); HEMATOCRIT 34.3 % (37.0-47.0); HEMOGLOBIN 10.8 G/DL (12.0-16.0); MEAN CORPUSCULAR VOLUME 87 FL (80-99); MONOCYTES % (AUTO) 8.6 % (1.0-10.0); NEUTROPHILS % (AUTO) 70.9 % (45.0-75.0); PLATELET COUNT 240 K/UL (150-450); RED BLOOD COUNT 3.95 M/UL (4.20-5.40); RED CELL DISTRIBUTION WIDTH 14.7 % (11.6-14.8); WHITE BLOOD COUNT 8.6 K/UL (4.8-10.8)
[2018-06-25] MEDS: Piperacillin/Tazobactam 3.375 GM in NS 110 ML IVPB SCH (05:47)
[2018-06-25] MEDS: Cyclobenzaprine 10mg Tab ORAL SCH ×3 (05:48→21:50)
--- NOTE | 2018-06-25 07:15 | NUR ---
NURSE NOTES: Received pt from LEVI Lucio in stable condition with no cardiopulmonary distress noted. Pt is on 2L O2 via NC. Pt is agitated and says "Get away from me" when attempting to assess surgical dressing in abdomen. Will attempt to reassess at a later time. Pt has a F/C draining yellow urine. BONG PICC line noted. . Pt is wearing diaper per her request, no BM noted at this time. Bed is in lowest position, side rails up x3, call light within reach. Will continue to monitor pt.
--- NOTE | 2018-06-25 07:20 | NUR ---
HAND-OFF: Report given to LEVI Lemons.
[2018-06-25 08:00] VITALS: BP 128/62
[2018-06-25] MEDS: Pantoprazole Inj IV SCH (09:00)
[2018-06-25] MEDS: Heparin 5000 units/ml inj SUBQ SCH ×2 (09:00→21:51)
--- NOTE | 2018-06-25 09:40 | NUR ---
Pt is refused all care at this time, including 2D echocardiography procedure and medications. Explained to the patient importance of diagnostic procedures and medications, including Heparin to prevent complications such as DVT and pulmonary embolism. Pt is still refused and said "Leave me alone, get out." Contacted Dr. Herrera, Dr. Elias, and Dr. Brewer. No further orders at this time.
--- NOTE | 2018-06-25 09:43 | NUR ---
CARDIOLOGY : ATTENDED TO PT'S ROOM AT 9:10 ,PT REFUSED THE 2-D ECHO . RN & CHARGE NURSE ARE AWARE .
--- NOTE | 2018-06-25 10:22 | NUR ---
CASE MANAGEMENT:REVIEW 06/25/18 SI: SBO. POD #4 S/P LYSIS OF ADHESIONS,SBO RESECTION/ANASTOMOSIS 98.4 117 24 149/78 96% ON 2L/NC H/H-10.8/34.3 IS:IV ZOSYN Q8HRS IV PROTONIX QD IVF@75/HR HEPARIN SQ Q12 SDU STATUS PLAN: DC TPN/IL CLEAR LIQUIDS
--- NOTE | 2018-06-25 10:57 | Pulmonology Progress Note ---
Assessment/Plan Problems: (1) Small bowel obstruction (2) COPD (chronic obstructive pulmonary disease) (3) CHF (congestive heart failure) (4) Interstitial lung disease (5) Pacemaker (6) Hypothyroidism (7) Diabetes mellitus Assessment/Plan iv fluids on clear liquied K supplelemetn titrate fio2 to sat of 92% check electrolytes respiratory treatment symptomatic treatment. Subjective ROS Limited/Unobtainable: No Constitutional: Reports: no symptoms HEENT: Repors: no symptoms Allergies: Coded Allergies: ACETAMINOPHEN (Verified Allergy, Unknown, itching, 06/21/18) CODEINE (Verified Allergy, Unknown, 06/21/18) Uncoded Allergies: iodoform packing (Allergy, Unknown, redness, swelling, 06/21/18) Objective Last 24 Hour Vital Signs Date Time Temp Pulse Resp B/P (MAP) Pulse Ox O2 Delivery O2 Flow Rate FiO2 06/25/18 08:00 90 06/25/18 08:00 Nasal Cannula 2.0 Nasal Cannula 2.0 06/25/18 08:00 98.1 89 20 128/62 (84) 93 06/25/18 04:00 98.2 90 24 104/62 (76) 95 06/25/18 04:00 Nasal Cannula 2.0 Nasal Cannula 2.0 06/25/18 03:45 90 06/25/18 00:00 Nasal Cannula 2.0 Nasal Cannula 2.0 06/25/18 00:00 98.4 117 24 149/78 (101) 96 06/24/18 23:30 106 06/24/18 20:00 97.5 97 24 160/82 (108) 97 06/24/18 20:00 Nasal Cannula 2.0 Nasal Cannula 2.0 06/24/18 19:09 102 06/24/18 16:00 108 06/24/18 16:00 Nasal Cannula 2.0 Nasal Cannula 2.0 06/24/18 16:00 2.0 06/24/18 16:00 97.9 93 22 127/75 (92) 95 06/24/18 12:00 Nasal Cannula 2.0 Nasal Cannula 2.0 06/24/18 12:00 98.1 98 21 124/78 (93) 95 06/24/18 12:00 2.0 06/24/18 12:00 98 Intake and Output 06/24/18 06/25/18 19:00 07:00 Intake Total 1010.0 ml 443.48 ml Output Total 350 ml 1000 ml Balance 660.0 ml -556.52 ml Intake Oral 300 ml IV Total 1010.0 ml 143.48 ml Output Urine Total 350 ml 1000 ml # Bowel Movements 2 General Appearance: WD/WN HEENT: normocephalic, atraumatic Respiratory/Chest: normal breath sounds Cardiovascular: normal peripheral pulses, normal rate, no gallop/murmur Abdomen: soft, non tender, no mass Extremities: no clubbing Skin: no ulcers Laboratory Tests 06/25/18 04:00: White Blood Count 8.6, Red Blood Count 3.95L, Hemoglobin 10.8L, Hematocrit 34.3L , Mean Corpuscular Volume 87, Mean Corpuscular Hemoglobin 27.4, Mean Corpuscular Hemoglobin Concent 31.5L, Red Cell Distribution Width 14.7, Platelet Count 240, Mean Platelet Volume 7.7, Neutrophils (%) (Auto) 70.9, Lymphocytes (%) (Auto) 17.0L, Monocytes (%) (Auto) 8.6, Eosinophils (%) (Auto) 2.3, Basophils (%) (Auto) 1.2, Erythrocyte Sedimentation Rate 62H, Sodium Level 141, Potassium Level 4.2, Chloride Level 105, Carbon Dioxide Level 32, Anion Gap 4L, Blood Urea Nitrogen 3L, Creatinine 0.6, Estimat Glomerular Filtration Rate > 60, Glucose Level 96, Calcium Level 6.4L, Phosphorus Level 2.3L, Magnesium Level 1.5L, Total Bilirubin 0.5, Aspartate Amino Transf (AST/SGOT) 17 , Alanine Aminotransferase (ALT/SGPT) 18, Alkaline Phosphatase 107, C-Reactive Protein, Quantitative 14.5H, Total Protein 5.5L, Albumin 1.9L, Globulin 3.6, Albumin/Globulin Ratio 0.5L Current Medications Medications (Trade) Dose Ordered Sig/Sandra Route PRN Reason Start Time Stop Time Status Last Admin Dose Admin Al Hydroxide/Mg Hydroxide (Mylanta II) 30 ml Q6H PRN ORAL dyspepsia 06/23/18 23:30 07/19/18 17:24 Chlorhexidine Gluconate (Chioma-Hex 2%) 1 applic DAILY@1999 TOPIC 06/24/18 20:00 07/24/18 19:59 06/24/18 21:13 Cyclobenzaprine HCl (Flexeril) 10 mg Q8HR ORAL 06/23/18 22:00 07/19/18 21:59 06/25/18 05:48 Dextrose 1,000 ml @ 0 mls/hr Q24H PRN IV PN interrupted or unavailable 06/24/18 21:00 07/23/18 20:59 Dextrose (Dextrose 50%) 25 ml Q30M PRN IV Hypoglycemia 06/23/18 20:45 07/23/18 15:44 Dextrose (Dextrose 50%) 50 ml Q30M PRN IV Hypoglycemia 06/23/18 20:45 07/23/18 15:44 Diphenhydramine HCl (Benadryl) 25 mg Q6H PRN ORAL Itching/Pruritis 06/23/18 23:30 07/19/18 17:25 Gabapentin (Neurontin) 400 mg THREE TIMES A DAY ORAL 06/24/18 09:00 07/20/18 08:59 06/24/18 16:48 Heparin Sodium (Porcine) (Heparin 5000 units/ml) 5,000 units EVERY 12 HOURS SUBQ 06/23/18 21:00 07/20/18 08:59 06/24/18 21:15 Heparin Sodium/ Sodium Chloride (Heparin 1000 units/500ml Premix) 1,000 unit ONCE PRN IV picc line placement 06/24/18 12:15 06/25/18 12:14 Hydromorphone HCl (Dilaudid) 0.5 mg Q3H PRN IVP Pain Score 1-3 06/23/18 21:15 06/28/18 18:11 06/23/18 23:34 Hydromorphone HCl (Dilaudid) 1 mg Q3H PRN IVP pain score 4-6 06/23/18 21:15 06/28/18 18:10 06/25/18 01:00 Hydromorphone HCl (Dilaudid) 2 mg Q3H PRN IVP pain score 7-10 06/23/18 21:15 06/28/18 18:11 Levothyroxine Sodium (Synthroid) 100 mcg ACBREAKFAST ORAL 06/24/18 06:30 07/20/18 06:29 06/25/18 05:48 Lidocaine HCl (Xylocaine 1% 30ml) 30 ml ONCE PRN INJ picc line placement 06/24/18 12:15 06/25/18 12:14 Lorazepam (Ativan 2mg/ml 1ml) 1 mg Q4H PRN IV agitation 06/23/18 21:30 06/26/18 17:26 Nitroglycerin (Ntg) 0.4 mg Q5M X 3 DOSES PRN SL Prn Chest Pain 06/23/18 20:15 07/19/18 17:26 Ondansetron HCl (Zofran) 4 mg Q6H PRN IVP Nausea & Vomiting 06/23/18 23:30 07/19/18 17:26 Pantoprazole (Protonix) 40 mg DAILY IV 06/24/18 09:00 07/20/18 08:59 06/24/18 09:26 Piperacillin Sod/ Tazobactam Sod 3.375 gm/Sodium Chloride 110 ml @ 27.5 mls/hr EVERY 8 HOURS IVPB 06/23/18 22:00 06/28/18 21:59 06/25/18 05:47 Polyethylene Glycol (Miralax) 17 gm HSPRN PRN ORAL Constipation 06/23/18 21:15 07/19/18 21:14 Promethazine HCl 12.5 mg/Sodium Chloride 55.5 ml @ 110 mls/hr Q6H PRN IV Refractory N/V 06/23/18 23:45 07/19/18 17:37 Promethazine HCl 25 mg/Sodium Chloride 56 ml @ 110 mls/hr Q6H PRN IV Refractory N/V 06/23/18 23:45 07/19/18 17:38 Temazepam (Restoril) 15 mg HSPRN PRN ORAL Insomnia 06/23/18 21:15 06/26/18 21:14 Quincy Herrera MD Jun 25, 2018 10:57
--- NOTE | 2018-06-25 11:07 | GI Progress Note ---
Assessment/Plan Problems: (1) S/P small bowel resection ICD Codes: Z90.49 - Acquired absence of other specified parts of digestive tract SNOMED: 34230930, 912373652, 300384742671419 (2) Abdominal pain ICD Codes: R10.9 - Unspecified abdominal pain SNOMED: 50758444 (3) Hypothyroidism ICD Codes: E03.9 - Hypothyroidism, unspecified SNOMED: 66972756 (4) Chronic pain ICD Codes: G89.29 - Other chronic pain SNOMED: 71768489 (5) Diabetes mellitus ICD Codes: E11.9 - Type 2 diabetes mellitus without complications SNOMED: 29299435 Status: progressing Status Narrative Discussed with Dr. Mesa Assessment/Plan Assessment - SBO - s/p exlap - abd pain Recommendations -Diet per surgery - post op care - Surgical follow up - IVF - Follow exam The patient was seen and examined at bedside and all new and available data was reviewed in the patients chart. I agree with the above findings, impression and plan. (Patient seen earlier today. Signature stamp does not reflect patient encounter time.). - Olivier Mesa MD Subjective Subjective Complaints of abdominal pain from incision site Objective Last 24 Hour Vital Signs Date Time Temp Pulse Resp B/P (MAP) Pulse Ox O2 Delivery O2 Flow Rate FiO2 06/25/18 08:00 90 06/25/18 08:00 Nasal Cannula 2.0 Nasal Cannula 2.0 06/25/18 08:00 98.1 89 20 128/62 (84) 93 06/25/18 04:00 98.2 90 24 104/62 (76) 95 06/25/18 04:00 Nasal Cannula 2.0 Nasal Cannula 2.0 06/25/18 03:45 90 06/25/18 00:00 Nasal Cannula 2.0 Nasal Cannula 2.0 06/25/18 00:00 98.4 117 24 149/78 (101) 96 06/24/18 23:30 106 06/24/18 20:00 97.5 97 24 160/82 (108) 97 06/24/18 20:00 Nasal Cannula 2.0 Nasal Cannula 2.0 06/24/18 19:09 102 06/24/18 16:00 108 06/24/18 16:00 Nasal Cannula 2.0 Nasal Cannula 2.0 06/24/18 16:00 2.0 06/24/18 16:00 97.9 93 22 127/75 (92) 95 06/24/18 12:00 Nasal Cannula 2.0 Nasal Cannula 2.0 06/24/18 12:00 98.1 98 21 124/78 (93) 95 06/24/18 12:00 2.0 06/24/18 12:00 98 Intake and Output 06/24/18 06/25/18 19:00 07:00 Intake Total 1010.0 ml 443.48 ml Output Total 350 ml 1000 ml Balance 660.0 ml -556.52 ml Intake Oral 300 ml IV Total 1010.0 ml 143.48 ml Output Urine Total 350 ml 1000 ml # Bowel Movements 2 Laboratory Tests Test 06/25/18 04:00 White Blood Count 8.6 K/UL (4.8-10.8) Red Blood Count 3.95 M/UL (4.20-5.40) L Hemoglobin 10.8 G/DL (12.0-16.0) L Hematocrit 34.3 % (37.0-47.0) L Mean Corpuscular Volume 87 FL (80-99) Mean Corpuscular Hemoglobin 27.4 PG (27.0-31.0) Mean Corpuscular Hemoglobin Concent 31.5 G/DL (32.0-36.0) L Red Cell Distribution Width 14.7 % (11.6-14.8) Platelet Count 240 K/UL (150-450) Mean Platelet Volume 7.7 FL (6.5-10.1) Neutrophils (%) (Auto) 70.9 % (45.0-75.0) Lymphocytes (%) (Auto) 17.0 % (20.0-45.0) L Monocytes (%) (Auto) 8.6 % (1.0-10.0) Eosinophils (%) (Auto) 2.3 % (0.0-3.0) Basophils (%) (Auto) 1.2 % (0.0-2.0) Erythrocyte Sedimentation Rate 62 MM/HR (0-30) H Sodium Level 141 MMOL/L (136-145) Potassium Level 4.2 MMOL/L (3.5-5.1) Chloride Level 105 MMOL/L (98-107) Carbon Dioxide Level 32 MMOL/L (21-32) Anion Gap 4 mmol/L (5-15) L Blood Urea Nitrogen 3 mg/dL (7-18) L Creatinine 0.6 MG/DL (0.55-1.30) Estimat Glomerular Filtration Rate > 60 mL/min (>60) Glucose Level 96 MG/DL (74-106) Calcium Level 6.4 MG/DL (8.5-10.1) L Phosphorus Level 2.3 MG/DL (2.5-4.9) L Magnesium Level 1.5 MG/DL (1.8-2.4) L Total Bilirubin 0.5 MG/DL (0.2-1.0) Aspartate Amino Transf (AST/SGOT) 17 U/L (15-37) Alanine Aminotransferase (ALT/SGPT) 18 U/L (12-78) Alkaline Phosphatase 107 U/L (46-116) C-Reactive Protein, Quantitative 14.5 mg/dL (0.00-0.90) H Total Protein 5.5 G/DL (6.4-8.2) L Albumin 1.9 G/DL (3.4-5.0) L Globulin 3.6 g/dL Albumin/Globulin Ratio 0.5 (1.0-2.7) L Height (Feet): 5 Height (Inches): 3.00 Weight (Pounds): 135 General Appearance: WD/WN, no apparent distress, alert Cardiovascular: normal rate Respiratory/Chest: normal breath sounds, no respiratory distress Abdominal Exam: normal bowel sounds, non tender, soft, incision site Extremities: normal range of motion, non-tender Shelby Roberson NP Jun 25, 2018 11:07
[2018-06-25] MEDS ORDERED: LORazepam Inj 2mg/ml 1ml IV PRN ×3 (11:30→14:00)
[2018-06-25 12:00] VITALS: BP 121/65
--- NOTE | 2018-06-25 13:06 | NUR ---
*-* INSURANCE *--* ALL CLINICALS AND REVIEWS HAVE BEEN FAXED TO: [facility] [phone] F [phone]
--- NOTE | 2018-06-25 13:30 | NUR ---
TRANSFER TO FLOOR: Patient transferred to [address] via hospital bed and O2 tank 4L NC, per Dr. Herrera in stable condition. Report given to LEVI Ohara. Belongings and medications given to LEVI Ohara. Telebox removed and returned to tele.
--- NOTE | 2018-06-25 13:31 | NUR ---
NURSE NOTES: Received patient from JACQUELYN awake and alert sitting up comfortably in patient's own bed. Belongings accounted for. Oriented patient to room. Right upper arm PICC saline lock. Nasal cannula @ 4L/min. Bed at lowest level with 3 side rails up. Call light within reach. In no apparent distress at this time. Will continue to monitor.
[2018-06-25] MEDS ORDERED: Nitroglycerin Subl 0.4mg tab SL PRN (13:45)
[2018-06-25] MEDS ORDERED: HYDROmorphone 1mg/ml Carpuject IVP PRN (14:00)
[2018-06-25] MEDS ORDERED: Hydromorphone 0.5mg/0.5ml inj IVP PRN (14:00)
[2018-06-25] MEDS ORDERED: Mylanta II UD 30ml ORAL PRN (14:00)
[2018-06-25] MEDS ORDERED: Piperacillin/Tazobactam 3.375 GM in NS 110 ML IVPB SCH (14:00)
[2018-06-25] MEDS ORDERED: Promethazine HCl 25 MG in NS 55 ML IV PRN (14:13)
[2018-06-25 16:00] VITALS: BP 104/59
--- NOTE | 2018-06-25 16:46 | NUR ---
NURSE NOTES: left message for Dr. Velazquez regarding sputum stain and culture results.
[2018-06-25] MEDS ORDERED: Promethazine HCl 12.5 MG in NS 55 ML IV PRN (17:45)
--- NOTE | 2018-06-25 18:03 | General Surgery Progress Note ---
General Surgery-Progress Note Subjective Procedure Performed ex lap, lysis of adhesions and small bowel resection with primary anastomosis Symptoms: improved, BM Objective Last 24 Hour Vital Signs Date Time Temp Pulse Resp B/P (MAP) Pulse Ox O2 Delivery O2 Flow Rate FiO2 06/25/18 16:00 98.1 84 16 104/59 (74) 96 06/25/18 14:26 98.1 06/25/18 12:00 97.5 87 22 121/65 (83) 97 06/25/18 12:00 89 06/25/18 12:00 Nasal Cannula 4.0 Nasal Cannula 4.0 06/25/18 10:07 Nasal Cannula 2.0 28 06/25/18 10:06 96 Nasal Cannula 2.0 28 06/25/18 08:00 90 06/25/18 08:00 Nasal Cannula 2.0 Nasal Cannula 2.0 06/25/18 08:00 98.1 89 20 128/62 (84) 93 06/25/18 04:00 98.2 90 24 104/62 (76) 95 06/25/18 04:00 Nasal Cannula 2.0 Nasal Cannula 2.0 06/25/18 03:45 90 06/25/18 00:00 Nasal Cannula 2.0 Nasal Cannula 2.0 06/25/18 00:00 98.4 117 24 149/78 (101) 96 06/24/18 23:30 106 06/24/18 20:00 97.5 97 24 160/82 (108) 97 06/24/18 20:00 Nasal Cannula 2.0 Nasal Cannula 2.0 06/24/18 19:09 102 I&O Intake and Output 06/24/18 06/25/18 19:00 07:00 Intake Total 1010.0 ml 443.48 ml Output Total 350 ml 1000 ml Balance 660.0 ml -556.52 ml Intake Oral 300 ml IV Total 1010.0 ml 143.48 ml Output Urine Total 350 ml 1000 ml # Bowel Movements 2 Wound: clean Drains: none Respiratory: clear Abdomen: soft, flat, non-tender, present bowel sounds Extremities: no tenderness Laboratory Tests Test 06/25/18 04:00 White Blood Count 8.6 K/UL (4.8-10.8) Red Blood Count 3.95 M/UL (4.20-5.40) L Hemoglobin 10.8 G/DL (12.0-16.0) L Hematocrit 34.3 % (37.0-47.0) L Mean Corpuscular Volume 87 FL (80-99) Mean Corpuscular Hemoglobin 27.4 PG (27.0-31.0) Mean Corpuscular Hemoglobin Concent 31.5 G/DL (32.0-36.0) L Red Cell Distribution Width 14.7 % (11.6-14.8) Platelet Count 240 K/UL (150-450) Mean Platelet Volume 7.7 FL (6.5-10.1) Neutrophils (%) (Auto) 70.9 % (45.0-75.0) Lymphocytes (%) (Auto) 17.0 % (20.0-45.0) L Monocytes (%) (Auto) 8.6 % (1.0-10.0) Eosinophils (%) (Auto) 2.3 % (0.0-3.0) Basophils (%) (Auto) 1.2 % (0.0-2.0) Erythrocyte Sedimentation Rate 62 MM/HR (0-30) H Sodium Level 141 MMOL/L (136-145) Potassium Level 4.2 MMOL/L (3.5-5.1) Chloride Level 105 MMOL/L (98-107) Carbon Dioxide Level 32 MMOL/L (21-32) Anion Gap 4 mmol/L (5-15) L Blood Urea Nitrogen 3 mg/dL (7-18) L Creatinine 0.6 MG/DL (0.55-1.30) Estimat Glomerular Filtration Rate > 60 mL/min (>60) Glucose Level 96 MG/DL (74-106) Calcium Level 6.4 MG/DL (8.5-10.1) L Phosphorus Level 2.3 MG/DL (2.5-4.9) L Magnesium Level 1.5 MG/DL (1.8-2.4) L Total Bilirubin 0.5 MG/DL (0.2-1.0) Aspartate Amino Transf (AST/SGOT) 17 U/L (15-37) Alanine Aminotransferase (ALT/SGPT) 18 U/L (12-78) Alkaline Phosphatase 107 U/L (46-116) C-Reactive Protein, Quantitative 14.5 mg/dL (0.00-0.90) H Total Protein 5.5 G/DL (6.4-8.2) L Albumin 1.9 G/DL (3.4-5.0) L Globulin 3.6 g/dL Albumin/Globulin Ratio 0.5 (1.0-2.7) L Assessment Additional Comments S/P Bowel resection Plan Additional Comments Moshe Adam MD Jun 25, 2018 18:03
--- NOTE | 2018-06-25 18:47 | Internal Med Progress Note ---
Subjective Date of Service: Jun 25, 2018 Physician Name Alcides Velazquez Attending Physician Satinder Brewer MD Current Medications Medications (Trade) Dose Ordered Sig/Sandra Route PRN Reason Start Time Stop Time Status Last Admin Dose Admin Al Hydroxide/Mg Hydroxide (Mylanta II) 30 ml Q6H PRN ORAL dyspepsia 06/25/18 14:00 07/19/18 13:59 Cefepime HCl 1 gm/ Dextrose 55 ml @ 110 mls/hr Q8H IVPB 06/25/18 20:00 07/02/18 19:59 Chlorhexidine Gluconate (Chioma-Hex 2%) 1 applic DAILY@2000 TOPIC 06/25/18 20:00 07/24/18 19:59 Cyclobenzaprine HCl (Flexeril) 10 mg Q8HR ORAL 06/25/18 14:00 07/19/18 21:59 Dextrose (Dextrose 50%) 25 ml Q30M PRN IV Hypoglycemia 06/25/18 13:45 07/23/18 15:44 Dextrose (Dextrose 50%) 50 ml Q30M PRN IV Hypoglycemia 06/25/18 13:45 07/23/18 15:44 Diphenhydramine HCl (Benadryl) 25 mg Q6H PRN ORAL Itching/Pruritis 06/25/18 14:00 07/19/18 13:59 Gabapentin (Neurontin) 400 mg THREE TIMES A DAY ORAL 06/25/18 18:00 07/20/18 08:59 Heparin Sodium (Porcine) (Heparin 5000 units/ml) 5,000 units EVERY 12 HOURS SUBQ 06/25/18 21:00 07/20/18 08:59 Hydromorphone HCl (Dilaudid) 2 mg Q3H PRN IVP pain score 7-10 06/25/18 14:00 06/28/18 13:59 06/25/18 13:56 Levothyroxine Sodium (Synthroid) 100 mcg ACBREAKFAST ORAL 06/26/18 06:30 07/20/18 06:29 Lorazepam (Ativan 2mg/ml 1ml) 1 mg Q4H PRN IV agitation 06/25/18 14:00 06/28/18 13:59 Nitroglycerin (Ntg) 0.4 mg Q5M X 3 DOSES PRN SL Prn Chest Pain 06/25/18 13:45 07/19/18 17:26 Ondansetron HCl (Zofran) 4 mg Q6H PRN IVP Nausea & Vomiting 06/25/18 14:00 07/19/18 13:59 Pantoprazole (Protonix) 40 mg DAILY ORAL 06/26/18 09:00 07/26/18 08:59 Polyethylene Glycol (Miralax) 17 gm HSPRN PRN ORAL Constipation 06/25/18 21:00 07/19/18 20:59 Promethazine HCl 25 mg/Sodium Chloride 56 ml @ 110 mls/hr Q6H PRN IV Refractory N/V 06/25/18 14:13 07/19/18 14:12 Temazepam (Restoril) 15 mg HSPRN PRN ORAL Insomnia 06/25/18 21:00 06/28/18 20:59 Tramadol HCl (Ultram) 50 mg Q6H PRN ORAL Moderate pain(4-6) 06/25/18 18:19 07/02/18 18:18 Allergies: Coded Allergies: ACETAMINOPHEN (Verified Allergy, Unknown, itching, 06/21/18) CODEINE (Verified Allergy, Unknown, 06/21/18) Uncoded Allergies: iodoform packing (Allergy, Unknown, redness, swelling, 06/21/18) ROS Limited/Unobtainable: No Constitutional: Reports: no symptoms HEENT: Reports: no symptoms Cardiovascular: Reports: no symptoms Respiratory: Reports: no symptoms Gastrointestinal/Abdominal: Reports: no symptoms Genitourinary: Reports: no symptoms Neurologic/Psychiatric: Reports: no symptoms Subjective 68 YO F admitted with abdominal pain. Now small bowel obstruction. S/P exploratory laparotomy, lysis of adhesions and small bowel resection/ anastomosis 06/21/18. Cover for Int Jean Carlos-Dr Brewer Objective Last Vital Signs Date Time Temp Pulse Resp B/P (MAP) Pulse Ox O2 Delivery O2 Flow Rate FiO2 06/25/18 16:00 98.1 84 16 104/59 (74) 96 06/25/18 12:00 Nasal Cannula 4.0 Nasal Cannula 4.0 06/25/18 10:07 28 Laboratory Tests Test 06/25/18 04:00 White Blood Count 8.6 K/UL (4.8-10.8) Red Blood Count 3.95 M/UL (4.20-5.40) L Hemoglobin 10.8 G/DL (12.0-16.0) L Hematocrit 34.3 % (37.0-47.0) L Mean Corpuscular Volume 87 FL (80-99) Mean Corpuscular Hemoglobin 27.4 PG (27.0-31.0) Mean Corpuscular Hemoglobin Concent 31.5 G/DL (32.0-36.0) L Red Cell Distribution Width 14.7 % (11.6-14.8) Platelet Count 240 K/UL (150-450) Mean Platelet Volume 7.7 FL (6.5-10.1) Neutrophils (%) (Auto) 70.9 % (45.0-75.0) Lymphocytes (%) (Auto) 17.0 % (20.0-45.0) L Monocytes (%) (Auto) 8.6 % (1.0-10.0) Eosinophils (%) (Auto) 2.3 % (0.0-3.0) Basophils (%) (Auto) 1.2 % (0.0-2.0) Erythrocyte Sedimentation Rate 62 MM/HR (0-30) H Sodium Level 141 MMOL/L (136-145) Potassium Level 4.2 MMOL/L (3.5-5.1) Chloride Level 105 MMOL/L (98-107) Carbon Dioxide Level 32 MMOL/L (21-32) Anion Gap 4 mmol/L (5-15) L Blood Urea Nitrogen 3 mg/dL (7-18) L Creatinine 0.6 MG/DL (0.55-1.30) Estimat Glomerular Filtration Rate > 60 mL/min (>60) Glucose Level 96 MG/DL (74-106) Calcium Level 6.4 MG/DL (8.5-10.1) L Phosphorus Level 2.3 MG/DL (2.5-4.9) L Magnesium Level 1.5 MG/DL (1.8-2.4) L Total Bilirubin 0.5 MG/DL (0.2-1.0) Aspartate Amino Transf (AST/SGOT) 17 U/L (15-37) Alanine Aminotransferase (ALT/SGPT) 18 U/L (12-78) Alkaline Phosphatase 107 U/L (46-116) C-Reactive Protein, Quantitative 14.5 mg/dL (0.00-0.90) H Total Protein 5.5 G/DL (6.4-8.2) L Albumin 1.9 G/DL (3.4-5.0) L Globulin 3.6 g/dL Albumin/Globulin Ratio 0.5 (1.0-2.7) L Intake and Output 06/24/18 06/25/18 19:00 07:00 Intake Total 1010.0 ml 443.48 ml Output Total 350 ml 1000 ml Balance 660.0 ml -556.52 ml Intake Oral 300 ml IV Total 1010.0 ml 143.48 ml Output Urine Total 350 ml 1000 ml # Bowel Movements 2 Objective PHYSICAL EXAMINATION:. GENERAL: The patient is awake, responsive, and moaning in pain. HEAD AND NECK: Pupils are reactive to light. Extraocular movements are intact. NECK: Supple. No JVD. LUNGS: Good air entry. No wheezes or rhonchi. Coarse breath sounds. Decreased air in bases. ABDOMEN: Soft and not distended. Mildly obese. No rebound tenderness. Decreased bowel sounds. EXTREMITIES: No cyanosis, clubbing, or edema. NEUROLOGICAL: Cranial nerves II through XII grossly intact. The patient moving all extremities. RECTAL: Refused and deferred. GENITOURINARY: Refused and deferred. Assessment/Plan Assessment/Plan ASSESSMENT: 1. Abdominal pain associated with nausea and vomiting, Small bowel obstruction. 2. History of COPD. 3. Congestive heart failure. 4. Sick sinus syndrome with status post pacemaker. 5. Hypothyroidism. 6. Diabetes type 2. 7. Interstitial lung disease. 8. History of PE, status post IVC filter. 9. The patient has a history of acute kidney injury as well. PLAN: ICU statius. S/P expl lap, small bowel resection/anastomosis and lysis of adhesions on by Dr. Vigil General Surgery; Dr. Herrera, Pulmonary Critical Care; and Dr. Mesa from Gastroenterology. Code status is Full Code. Keep the Tolerating regular diet. IV hydration. We will monitor laboratory closely. DVT prophylaxis with heparin subcutaneous. Alcides Velazquez MD Jun 25, 2018 18:47
--- NOTE | 2018-06-25 19:36 | NUR ---
HAND-OFF: Report given to LEVI Cahcon.
[2018-06-25 20:00] VITALS: BP 106/61
--- NOTE | 2018-06-25 20:00 | NUR ---
NURSE NOTES: Patient received in bed, awake, alert. Denies pain at this time. PICC line dressing intact, on TKO. Abdominal dressing dry and intact. FC draining via gravity. Will continue to monitor.
[2018-06-25] MEDS: Cefepime HCl 1 GM in D5W 55 ML IVPB SCH (20:06)
[2018-06-25] MEDS: Dyna-Hex 2% Top Sol 2oz TOPIC SCH (20:06)
[2018-06-25] MEDS ORDERED: Dextrose 10% 1,000 ML IV PRN (21:00)
[2018-06-25] MEDS ORDERED: Miralax 17gm pkt ORAL PRN (21:00)
[2018-06-26] VITALS: BP_SYST 123; BP_SYST 152; BP_DIAS 57; BP_DIAS 77
[2018-06-26] MEDS: Cefepime HCl 1 GM in D5W 55 ML IVPB SCH ×3 (03:20→23:44)
[2018-06-26 04:00] VITALS: BP 143/77
[2018-06-26] MEDS: Cyclobenzaprine 10mg Tab ORAL SCH ×3 (05:07→22:28)
[2018-06-26 07:04] LABS: EOSINOPHILS % (AUTO) 4.1 % (0.0-3.0); HEMATOCRIT 33.2 % (37.0-47.0); HEMOGLOBIN 10.3 G/DL (12.0-16.0); LYMPHOCYTES % (AUTO) 17.4 % (20.0-45.0); MEAN CORPUSCULAR VOLUME 89 FL (80-99); MONOCYTES % (AUTO) 8.4 % (1.0-10.0); NEUTROPHILS % (AUTO) 69.1 % (45.0-75.0); PLATELET COUNT 258 K/UL (150-450); RED BLOOD COUNT 3.75 M/UL (4.20-5.40); RED CELL DISTRIBUTION WIDTH 14.5 % (11.6-14.8); WHITE BLOOD COUNT 8.5 K/UL (4.8-10.8)
[2018-06-26 07:13] LABS: ANION GAP 3 mmol/L (5-15); BLOOD UREA NITROGEN 7 mg/dL (7-18); CALCIUM 8.2 MG/DL (8.5-10.1); CARBON DIOXIDE 33 MMOL/L (21-32); CHLORIDE 107 MMOL/L (98-107); CREATININE 0.5 MG/DL (0.55-1.30); POTASSIUM 3.2 MMOL/L (3.5-5.1); SODIUM 143 MMOL/L (136-145)
--- NOTE | 2018-06-26 07:39 | NUR ---
HAND-OFF: Report given to Manuela SIMS.
[2018-06-26 08:00] VITALS: BP 117/60
--- NOTE | 2018-06-26 08:51 | NUR ---
NURSE NOTES: Patient is alert and oriented to name, place, and time. Patient's incision on abdomen is clean and dry. Side rails are up x2 and are padded. Bed is locked, in lowest position, and call light is within reach. Will continue to monitor.
[2018-06-26] MEDS ORDERED: Pantoprazole Inj IV SCH (09:00)
[2018-06-26] MEDS: Heparin 5000 units/ml inj SUBQ SCH ×2 (09:04→20:28)
--- NOTE | 2018-06-26 10:37 | GI Progress Note ---
Assessment/Plan Problems: (1) S/P small bowel resection ICD Codes: Z90.49 - Acquired absence of other specified parts of digestive tract SNOMED: 03197357, 664264746, [id number] (2) Abdominal pain ICD Codes: R10.9 - Unspecified abdominal pain SNOMED: 41530244 (3) Hypothyroidism ICD Codes: E03.9 - Hypothyroidism, unspecified SNOMED: 84335094 (4) Chronic pain ICD Codes: G89.29 - Other chronic pain SNOMED: 25580708 (5) Diabetes mellitus ICD Codes: E11.9 - Type 2 diabetes mellitus without complications SNOMED: 58855538 Status: progressing Status Narrative Discussed with Dr. Mesa Assessment/Plan Assessment - SBO - s/p exlap - abd pain Recommendations -Diet per surgery, patient on regular diet - post op care - Surgical follow up - IVF - Follow exam -Pain management - ppi The patient was seen and examined at bedside and all new and available data was reviewed in the patients chart. I agree with the above findings, impression and plan. (Patient seen earlier today. Signature stamp does not reflect patient encounter time.). - Olivier Mesa MD Subjective Subjective Abdominal pain improved Objective Last 24 Hour Vital Signs Date Time Temp Pulse Resp B/P (MAP) Pulse Ox O2 Delivery O2 Flow Rate FiO2 06/26/18 08:15 98 Nasal Cannula 2.0 28 06/26/18 08:14 Nasal Cannula 2.0 28 06/26/18 05:13 98.2 06/26/18 04:10 96 Nasal Cannula 2.0 28 06/26/18 04:10 Nasal Cannula 2.0 28 06/26/18 04:00 98.0 88 20 143/77 (99) 94 06/26/18 00:00 98.2 82 18 123/57 (79) 97 06/25/18 22:20 97.8 06/25/18 21:00 Nasal Cannula 4.0 Nasal Cannula 4.0 06/25/18 20:00 97.8 80 20 106/61 (76) 95 06/25/18 16:00 98.1 84 16 104/59 (74) 96 06/25/18 12:00 97.5 87 22 121/65 (83) 97 06/25/18 12:00 89 06/25/18 12:00 Nasal Cannula 4.0 Nasal Cannula 4.0 Intake and Output 06/25/18 06/26/18 19:00 07:00 Intake Total 182.5 ml 110 ml Output Total 800 ml Balance 182.5 ml -690 ml IV Total 182.5 ml 110 ml Output Urine Total 800 ml # Bowel Movements 1 Laboratory Tests Test 06/26/18 05:35 White Blood Count 8.5 K/UL (4.8-10.8) Red Blood Count 3.75 M/UL (4.20-5.40) L Hemoglobin 10.3 G/DL (12.0-16.0) L Hematocrit 33.2 % (37.0-47.0) L Mean Corpuscular Volume 89 FL (80-99) Mean Corpuscular Hemoglobin 27.4 PG (27.0-31.0) Mean Corpuscular Hemoglobin Concent 30.9 G/DL (32.0-36.0) L Red Cell Distribution Width 14.5 % (11.6-14.8) Platelet Count 258 K/UL (150-450) Mean Platelet Volume 6.8 FL (6.5-10.1) Neutrophils (%) (Auto) 69.1 % (45.0-75.0) Lymphocytes (%) (Auto) 17.4 % (20.0-45.0) L Monocytes (%) (Auto) 8.4 % (1.0-10.0) Eosinophils (%) (Auto) 4.1 % (0.0-3.0) H Basophils (%) (Auto) 1.0 % (0.0-2.0) Sodium Level 143 MMOL/L (136-145) Potassium Level 3.2 MMOL/L (3.5-5.1) L Chloride Level 107 MMOL/L (98-107) Carbon Dioxide Level 33 MMOL/L (21-32) H Anion Gap 3 mmol/L (5-15) L Blood Urea Nitrogen 7 mg/dL (7-18) Creatinine 0.5 MG/DL (0.55-1.30) L Estimat Glomerular Filtration Rate > 60 mL/min (>60) Glucose Level 96 MG/DL (74-106) Calcium Level 8.2 MG/DL (8.5-10.1) #L Height (Feet): 5 Height (Inches): 3.00 Weight (Pounds): 135 General Appearance: WD/WN, no apparent distress, alert Cardiovascular: normal rate Respiratory/Chest: normal breath sounds, no respiratory distress Abdominal Exam: normal bowel sounds, non tender, soft, incision site Extremities: normal range of motion, non-tender Shelby Roberson NP Jun 26, 2018 10:37
--- NOTE | 2018-06-26 11:12 | Consultation ---
History of Present Illness General Chief Complaint: Abdominal Pain Referring physician: RYAN SANTANA Reason for Consultation: ABDOMINAL PAIN Present Illness HPI Ms. Blair is a 68 yo female with complicated PMHx who presnted to the ED on with N/V and progressive abdominal pain. She was found to have SBO and had surgery with lysis of adhesions and small-bowel resection with primary anastomosis on 06/21/18. She was intuabted after the operation but was then extuabted on 06/22/18. Sputum cultures from the time of intubatation 06/21/18 grew multiple organsisms. Her intial leukocytosis has since resolved and she has been aferbile. She had increase O2 requirements yesterday and her CXR showes worsening air space disease. ID consulted for HAP PMHx/PSHx Status post gastric bypass surgery in 2003 Osteoporosis Right total hip replacement August of 2007, subsequently infection with MSSA Right total hip and debridement and placement of antibiotic spacers in 2008 Spondylolisthesis SP fusion instrumentation of L5 and S1, allograft and bone stimulator placement in 1999 Hypothyroidism, Stroke Asthma Cervical cancer Depression DVT status post IVC filter placement. Permanent pacemaker implantation. Cholecystectomy Appendectomy, Tubal ligation. SocHx No E/T/D FamHx Not contributory Allergies: Coded Allergies: ACETAMINOPHEN (Verified Allergy, Unknown, itching, 06/21/18) CODEINE (Verified Allergy, Unknown, 06/21/18) Uncoded Allergies: iodoform packing (Allergy, Unknown, redness, swelling, 06/21/18) Medication History Scheduled Albuterol Sulfate (Ventolin Hfa), 2 PUFFS INH EVERY 4 TO 6 HOURS, (Reported) Cyclobenzaprine Hcl* (Flexeril*), 10 MG ORAL Q8HR, (Reported) Folic Acid* (Folic Acid*), 1 MG ORAL DAILY, (Reported) Gabapentin* (Gabapentin*), 800 MG ORAL THREE TIMES A DAY, (Reported) Hydroxyzine Hcl (Hydroxyzine Hcl), 25 MG ORAL QID, (Reported) Ipratropium [place] (Atrovent Hfa), 2 PUFFS IH QID, (Reported) Levothyroxine Sodium* (Synthroid*), 100 MCG ORAL DAILY, (Reported) Mirtazapine* (Remeron*), 30 MG ORAL BEDTIME, (Reported) Pramipexole* (Mirapex*), 0.25 MG ORAL THREE TIMES A DAY, (Reported) Tiotropium [place]* (Spiriva*), 1 PUFF INH DAILY, (Reported) Miscellaneous Medications Varenicline Tartrate (Chantix), 1 EACH PO, (Reported) Discontinued Medications Ascorbic Acid* (Ascorbic Acid*), 500 MG GT TWICE A DAY, (Reported) Discontinued Reason: Therapy completed Azithromycin* (Zithromax*), 500 MG GT QPM, (Reported) Discontinued Reason: Therapy completed Cefdinir (Cefdinir), 300 MG PO BID, (Reported) Discontinued Reason: Therapy completed Cephalexin* (Keflex*), 500 MG ORAL Q6H Discontinued Reason: Therapy completed Digoxin* (Digoxin*), 0.25 MG GT DAILY, (Reported) Discontinued Reason: Therapy completed Docusate Sodium* (Docusate Sodium*), 100 MG GT TWICE A DAY, (Reported) Discontinued Reason: Therapy completed Gabapentin* (Gabapentin*), 200 MG GT THREE TIMES A DAY, (Reported) Discontinued Reason: Prescription changed Insulin Aspart* (Novolog*), 0 SUBQ, (Reported) Discontinued Reason: Therapy completed Ipratropium/Albuterol Sulfate (DuoNeb 0.5-3(2.5)mg/3ml), 3 ML [id number] EVERY 2 HOURS, (Reported) Discontinued Reason: Therapy completed Ipratropium/Albuterol Sulfate (DuoNeb 0.5-3(2.5)mg/3ml), 3 ML HHN Q4HR PRN for Shortness of Breath, (Reported) Discontinued Reason: Therapy completed Levothyroxine Sodium* (Levothyroxine Sodium*), 75 MCG GT DAILY, (Reported) Discontinued Reason: Prescription changed Mirtazapine* (Remeron*), 7.5 MG GT BEDTIME, (Reported) Discontinued Reason: Prescription changed Morphine Sulfate* (Morphine Sulfate*), 2 MG IV Q4HR PRN for For Pain, (Reported) Discontinued Reason: Therapy completed Nitroglycerin (Nitroglycerin), 0.4 MG SL q5mins x 3 doses PRN for chest pain, ( Reported) Discontinued Reason: Therapy completed Ondansetron* (Zofran*), 4 MG GT Q6H PRN for Nausea & Vomiting, (Reported) Discontinued Reason: Therapy completed Ondansetron* (Zofran*), 4 MG IV Q6H PRN for Nausea & Vomiting, (Reported) Discontinued Reason: Therapy completed Pioglitazone Hcl* (Actos*), 15 MG GT DAILY, (Reported) Discontinued Reason: Therapy completed Polyethylene Glycol 3350* (Miralax*), 17 GM ORAL DAILY PRN for Constipation, ( Reported) Discontinued Reason: Therapy completed Temazepam (Restoril), 15 MG GT QHS PRN for Insomnia, (Reported) Discontinued Reason: Therapy completed Unable to Obtain Medications (Unable To Obtain Meds), (Reported) Discontinued Reason: Therapy completed Patient History Healthcare decision maker N Resuscitation status Full Code Advanced Directive on File Review of Systems ROS Narrative 12 point ROS negative except as note in the HPI. Physical Exam Last 24 Hour Vital Signs Date Time Temp Pulse Resp B/P (MAP) Pulse Ox O2 Delivery O2 Flow Rate FiO2 06/26/18 08:15 98 Nasal Cannula 2.0 28 06/26/18 08:14 Nasal Cannula 2.0 28 06/26/18 05:13 98.2 06/26/18 04:10 96 Nasal Cannula 2.0 28 06/26/18 04:10 Nasal Cannula 2.0 28 06/26/18 04:00 98.0 88 20 143/77 (99) 94 06/26/18 00:00 98.2 82 18 123/57 (79) 97 06/25/18 22:20 97.8 06/25/18 21:00 Nasal Cannula 4.0 Nasal Cannula 4.0 06/25/18 20:00 97.8 80 20 106/61 (76) 95 06/25/18 16:00 98.1 84 16 104/59 (74) 96 06/25/18 12:00 97.5 87 22 121/65 (83) 97 06/25/18 12:00 89 06/25/18 12:00 Nasal Cannula 4.0 Nasal Cannula 4.0 Intake and Output 06/25/18 06/26/18 19:00 07:00 Intake Total 182.5 ml 110 ml Output Total 800 ml Balance 182.5 ml -690 ml IV Total 182.5 ml 110 ml Output Urine Total 800 ml # Bowel Movements 1 Laboratory Tests Test 06/26/18 05:35 White Blood Count 8.5 K/UL (4.8-10.8) Red Blood Count 3.75 M/UL (4.20-5.40) L Hemoglobin 10.3 G/DL (12.0-16.0) L Hematocrit 33.2 % (37.0-47.0) L Mean Corpuscular Volume 89 FL (80-99) Mean Corpuscular Hemoglobin 27.4 PG (27.0-31.0) Mean Corpuscular Hemoglobin Concent 30.9 G/DL (32.0-36.0) L Red Cell Distribution Width 14.5 % (11.6-14.8) Platelet Count 258 K/UL (150-450) Mean Platelet Volume 6.8 FL (6.5-10.1) Neutrophils (%) (Auto) 69.1 % (45.0-75.0) Lymphocytes (%) (Auto) 17.4 % (20.0-45.0) L Monocytes (%) (Auto) 8.4 % (1.0-10.0) Eosinophils (%) (Auto) 4.1 % (0.0-3.0) H Basophils (%) (Auto) 1.0 % (0.0-2.0) Sodium Level 143 MMOL/L (136-145) Potassium Level 3.2 MMOL/L (3.5-5.1) L Chloride Level 107 MMOL/L (98-107) Carbon Dioxide Level 33 MMOL/L (21-32) H Anion Gap 3 mmol/L (5-15) L Blood Urea Nitrogen 7 mg/dL (7-18) Creatinine 0.5 MG/DL (0.55-1.30) L Estimat Glomerular Filtration Rate > 60 mL/min (>60) Glucose Level 96 MG/DL (74-106) Calcium Level 8.2 MG/DL (8.5-10.1) #L Height (Feet): 5 Height (Inches): 3.00 Weight (Pounds): 135 Medications Current Medications Medications (Trade) Dose Ordered Sig/Sandra Route PRN Reason Start Time Stop Time Status Last Admin Dose Admin Al Hydroxide/Mg Hydroxide (Mylanta II) 30 ml Q6H PRN ORAL dyspepsia 06/25/18 14:00 07/19/18 13:59 Cefepime HCl 1 gm/ Dextrose 55 ml @ 110 mls/hr Q8H IVPB 06/25/18 20:00 4/17/19 19:59 06/26/18 03:20 Chlorhexidine Gluconate (Chioma-Hex 2%) 1 applic DAILY@2000 TOPIC 06/25/18 20:00 07/24/18 19:59 06/25/18 20:06 Cyclobenzaprine HCl (Flexeril) 10 mg Q8HR ORAL 06/25/18 14:00 07/19/18 21:59 06/25/18 21:50 Dextrose (Dextrose 50%) 25 ml Q30M PRN IV Hypoglycemia 06/25/18 13:45 07/23/18 15:44 Dextrose (Dextrose 50%) 50 ml Q30M PRN IV Hypoglycemia 06/25/18 13:45 07/23/18 15:44 Diphenhydramine HCl (Benadryl) 25 mg Q6H PRN ORAL Itching/Pruritis 06/25/18 14:00 07/19/18 13:59 Gabapentin (Neurontin) 400 mg THREE TIMES A DAY ORAL 06/25/18 18:00 07/20/18 08:59 06/26/18 09:03 Heparin Sodium (Porcine) (Heparin 5000 units/ml) 5,000 units EVERY 12 HOURS SUBQ 06/25/18 21:00 07/20/18 08:59 06/26/18 09:04 Hydromorphone HCl (Dilaudid) 2 mg Q3H PRN IVP pain score 7-10 06/25/18 14:00 06/28/18 13:59 06/26/18 04:43 Levothyroxine Sodium (Synthroid) 100 mcg ACBREAKFAST ORAL 06/26/18 06:30 07/20/18 06:29 06/26/18 05:32 Lorazepam (Ativan 2mg/ml 1ml) 1 mg Q4H PRN IV agitation 06/25/18 14:00 06/28/18 13:59 Nitroglycerin (Ntg) 0.4 mg Q5M X 3 DOSES PRN SL Prn Chest Pain 06/25/18 13:45 07/19/18 17:26 Ondansetron HCl (Zofran) 4 mg Q6H PRN IVP Nausea & Vomiting 06/25/18 14:00 07/19/18 13:59 Pantoprazole (Protonix) 40 mg DAILY ORAL 06/26/18 09:00 07/26/18 08:59 06/26/18 09:03 Polyethylene Glycol (Miralax) 17 gm HSPRN PRN ORAL Constipation 06/25/18 21:00 07/19/18 20:59 Promethazine HCl 25 mg/Sodium Chloride 56 ml @ 110 mls/hr Q6H PRN IV Refractory N/V 06/25/18 14:13 07/19/18 14:12 Temazepam (Restoril) 15 mg HSPRN PRN ORAL Insomnia 06/25/18 21:00 06/28/18 20:59 Tramadol HCl (Ultram) 50 mg Q6H PRN ORAL Moderate pain(4-6) 06/25/18 18:19 07/02/18 18:18 Objective Narrative Gen: NAD, Obese woman, On 2L NC HEENT: NCAT, MMM, EOMI, PERRL, No Oral lesion, no scleral icterus NECK: full range of motion, supple, no meningismus, No LAD, No JVD LUNGS: Course B/L , No Wheezing, No Accessory muscle use CARDS: RRR, S1, S2, No M/R/G, ABD: Soft, NT, ND, No R/G, + BS, No HSM, No Masses : Deferred Ext: C/C/E, Pulses 2+ B/L (DP, Rad): NEURO: A/O x 2, Strength and Sensation Grossly intact PSYCH: Mood/affect normal SKIN: Warm/dry, No rashes Assessment/Plan Assessment/Plan 68 yo female with complicated PMHx who presented to the ED on 06/19/18 with N/V and progressive abdominal pain. HAP Positive sputum 06/21/18 - P.a. Acinetobacter, K. pneumo and NF - All sen to levo and Cefepime CXR 06/23/18 - Bilateral diffuse interstitial and airspace disease, stable or slightly worse compared to previous study of one day earlier Leukocytosis - resolved No fevers SBO S/p lysis of adhesions and small-bowel resection with primary anastomosis on PLAN - Continue Cefepime #2/7 for HAP - 06/23/18 SP - Zosyn #2 - f/u Repeat CXR - Monitor CBC and Temps Thank you for this consult. We will continue to follow the patient during this hospitalization. Constable ,P[place] MD Jun 26, 2018 11:12
[2018-06-26 12:00] VITALS: BP 93/59
--- NOTE | 2018-06-26 13:56 | Pulmonology Progress Note ---
Assessment/Plan Problems: (1) Small bowel obstruction (2) COPD (chronic obstructive pulmonary disease) (3) CHF (congestive heart failure) (4) Interstitial lung disease (5) Pacemaker (6) Hypothyroidism (7) Diabetes mellitus Assessment/Plan feeling better on clear liquied K supplelemetn titrate fio2 to sat of 92% check electrolytes respiratory treatment symptomatic treatment. Subjective ROS Limited/Unobtainable: No Constitutional: Reports: no symptoms HEENT: Repors: no symptoms Allergies: Coded Allergies: ACETAMINOPHEN (Verified Allergy, Unknown, itching, 06/21/18) CODEINE (Verified Allergy, Unknown, 06/21/18) Uncoded Allergies: iodoform packing (Allergy, Unknown, redness, swelling, 06/21/18) Objective Last 24 Hour Vital Signs Date Time Temp Pulse Resp B/P (MAP) Pulse Ox O2 Delivery O2 Flow Rate FiO2 06/26/18 12:00 98.3 82 18 93/59 (70) 96 06/26/18 08:15 Nasal Cannula 4.0 Nasal Cannula 4.0 06/26/18 08:15 98 Nasal Cannula 2.0 28 06/26/18 08:14 Nasal Cannula 2.0 28 06/26/18 08:00 97.9 78 18 117/60 (79) 97 06/26/18 05:13 98.2 06/26/18 04:10 96 Nasal Cannula 2.0 28 06/26/18 04:10 Nasal Cannula 2.0 28 06/26/18 04:00 98.0 88 20 143/77 (99) 94 06/26/18 00:00 98.2 82 18 123/57 (79) 97 06/25/18 22:20 97.8 06/25/18 21:00 Nasal Cannula 4.0 Nasal Cannula 4.0 06/25/18 20:00 97.8 80 20 106/61 (76) 95 06/25/18 16:00 98.1 84 16 104/59 (74) 96 Intake and Output 06/25/18 06/26/18 19:00 07:00 Intake Total 182.5 ml 110 ml Output Total 800 ml Balance 182.5 ml -690 ml IV Total 182.5 ml 110 ml Output Urine Total 800 ml # Bowel Movements 1 General Appearance: WD/WN HEENT: atraumatic Respiratory/Chest: chest wall non-tender, lungs clear Breasts: no masses Cardiovascular: normal rate Abdomen: normal bowel sounds, no organomegaly, no scars Extremities: no cyanosis Skin: no lesions Laboratory Tests 06/26/18 05:35: White Blood Count 8.5, Red Blood Count 3.75L, Hemoglobin 10.3L, Hematocrit 33.2L , Mean Corpuscular Volume 89, Mean Corpuscular Hemoglobin 27.4, Mean Corpuscular Hemoglobin Concent 30.9L, Red Cell Distribution Width 14.5, Platelet Count 258, Mean Platelet Volume 6.8, Neutrophils (%) (Auto) 69.1, Lymphocytes (%) (Auto) 17.4L, Monocytes (%) (Auto) 8.4, Eosinophils (%) (Auto) 4.1H, Basophils (%) (Auto) 1.0, Sodium Level 143, Potassium Level 3.2L, Chloride Level 107, Carbon Dioxide Level 33H, Anion Gap 3L, Blood Urea Nitrogen 7, Creatinine 0.5L, Estimat Glomerular Filtration Rate > 60, Glucose Level 96, Calcium Level 8.2#L Current Medications Medications (Trade) Dose Ordered Sig/Sandra Route PRN Reason Start Time Stop Time Status Last Admin Dose Admin Al Hydroxide/Mg Hydroxide (Mylanta II) 30 ml Q6H PRN ORAL dyspepsia 06/25/18 14:00 07/19/18 13:59 Cefepime HCl 1 gm/ Dextrose 55 ml @ 110 mls/hr Q8H IVPB 06/25/18 20:00 07/02/18 19:59 06/26/18 12:14 Chlorhexidine Gluconate (Chioma-Hex 2%) 1 applic DAILY@2000 TOPIC 06/25/18 20:00 07/24/18 19:59 06/25/18 20:06 Cyclobenzaprine HCl (Flexeril) 10 mg Q8HR ORAL 06/25/18 14:00 07/19/18 21:59 06/25/18 21:50 Dextrose (Dextrose 50%) 25 ml Q30M PRN IV Hypoglycemia 06/25/18 13:45 07/23/18 15:44 Dextrose (Dextrose 50%) 50 ml Q30M PRN IV Hypoglycemia 06/25/18 13:45 07/23/18 15:44 Diphenhydramine HCl (Benadryl) 25 mg Q6H PRN ORAL Itching/Pruritis 06/25/18 14:00 07/19/18 13:59 Gabapentin (Neurontin) 400 mg THREE TIMES A DAY ORAL 06/25/18 18:00 07/20/18 08:59 06/26/18 09:03 Heparin Sodium (Porcine) (Heparin 5000 units/ml) 5,000 units EVERY 12 HOURS SUBQ 06/25/18 21:00 07/20/18 08:59 06/26/18 09:04 Hydromorphone HCl (Dilaudid) 2 mg Q3H PRN IVP pain score 7-10 06/25/18 14:00 06/28/18 13:59 06/26/18 11:19 Levothyroxine Sodium (Synthroid) 100 mcg ACBREAKFAST ORAL 06/26/18 06:30 07/20/18 06:29 06/26/18 05:32 Lorazepam (Ativan 2mg/ml 1ml) 1 mg Q4H PRN IV agitation 06/25/18 14:00 06/28/18 13:59 Nitroglycerin (Ntg) 0.4 mg Q5M X 3 DOSES PRN SL Prn Chest Pain 06/25/18 13:45 07/19/18 17:26 Ondansetron HCl (Zofran) 4 mg Q6H PRN IVP Nausea & Vomiting 06/25/18 14:00 07/19/18 13:59 Pantoprazole (Protonix) 40 mg DAILY ORAL 06/26/18 09:00 07/26/18 08:59 06/26/18 09:03 Polyethylene Glycol (Miralax) 17 gm HSPRN PRN ORAL Constipation 06/25/18 21:00 07/19/18 20:59 Promethazine HCl 25 mg/Sodium Chloride 56 ml @ 110 mls/hr Q6H PRN IV Refractory N/V 06/25/18 14:13 07/19/18 14:12 Temazepam (Restoril) 15 mg HSPRN PRN ORAL Insomnia 06/25/18 21:00 06/28/18 20:59 Tramadol HCl (Ultram) 50 mg Q6H PRN ORAL Moderate pain(4-6) 06/25/18 18:19 07/02/18 18:18 Quincy Herrera MD Jun 26, 2018 13:56
--- NOTE | 2018-06-26 14:18 | General Surgery Progress Note ---
General Surgery-Progress Note Subjective Procedure Performed ex lap, lysis of adhesions and small bowel resection with primary anastomosis Symptoms: improved, BM Objective Last 24 Hour Vital Signs Date Time Temp Pulse Resp B/P (MAP) Pulse Ox O2 Delivery O2 Flow Rate FiO2 06/26/18 12:00 98.3 82 18 93/59 (70) 96 06/26/18 08:15 Nasal Cannula 4.0 Nasal Cannula 4.0 06/26/18 08:15 98 Nasal Cannula 2.0 28 06/26/18 08:14 Nasal Cannula 2.0 28 06/26/18 08:00 97.9 78 18 117/60 (79) 97 06/26/18 05:13 98.2 06/26/18 04:10 96 Nasal Cannula 2.0 28 06/26/18 04:10 Nasal Cannula 2.0 28 06/26/18 04:00 98.0 88 20 143/77 (99) 94 06/26/18 00:00 98.2 82 18 123/57 (79) 97 06/25/18 22:20 97.8 06/25/18 21:00 Nasal Cannula 4.0 Nasal Cannula 4.0 06/25/18 20:00 97.8 80 20 106/61 (76) 95 06/25/18 16:00 98.1 84 16 104/59 (74) 96 I&O Intake and Output 06/25/18 06/26/18 19:00 07:00 Intake Total 182.5 ml 110 ml Output Total 800 ml Balance 182.5 ml -690 ml IV Total 182.5 ml 110 ml Output Urine Total 800 ml # Bowel Movements 1 Wound: clean, intact Drains: none Respiratory: clear Abdomen: soft, flat, non-tender, present bowel sounds Extremities: no tenderness Laboratory Tests Test 06/26/18 05:35 White Blood Count 8.5 K/UL (4.8-10.8) Red Blood Count 3.75 M/UL (4.20-5.40) L Hemoglobin 10.3 G/DL (12.0-16.0) L Hematocrit 33.2 % (37.0-47.0) L Mean Corpuscular Volume 89 FL (80-99) Mean Corpuscular Hemoglobin 27.4 PG (27.0-31.0) Mean Corpuscular Hemoglobin Concent 30.9 G/DL (32.0-36.0) L Red Cell Distribution Width 14.5 % (11.6-14.8) Platelet Count 258 K/UL (150-450) Mean Platelet Volume 6.8 FL (6.5-10.1) Neutrophils (%) (Auto) 69.1 % (45.0-75.0) Lymphocytes (%) (Auto) 17.4 % (20.0-45.0) L Monocytes (%) (Auto) 8.4 % (1.0-10.0) Eosinophils (%) (Auto) 4.1 % (0.0-3.0) H Basophils (%) (Auto) 1.0 % (0.0-2.0) Sodium Level 143 MMOL/L (136-145) Potassium Level 3.2 MMOL/L (3.5-5.1) L Chloride Level 107 MMOL/L (98-107) Carbon Dioxide Level 33 MMOL/L (21-32) H Anion Gap 3 mmol/L (5-15) L Blood Urea Nitrogen 7 mg/dL (7-18) Creatinine 0.5 MG/DL (0.55-1.30) L Estimat Glomerular Filtration Rate > 60 mL/min (>60) Glucose Level 96 MG/DL (74-106) Calcium Level 8.2 MG/DL (8.5-10.1) #L Assessment Additional Comments S/P bowel resection Plan Additional Comments continue present treatment Moshe Bryan MD Jun 26, 2018 14:17
--- NOTE | 2018-06-26 14:27 | NUR ---
NURSE NOTES: Patient reported pain on coccyx earlier today 12/25. IV pain medication given. Patient observed to be too drowsy. Dr. Bryan made rounds. New order received.
--- NOTE | 2018-06-26 15:19 | NUR ---
CASE MANAGEMENT:REVIEW 06/26/18 SI: SBO. POD #5 S/P LYSIS OF ADHESIONS,SBO RESECTION/ANASTOMOSIS 98.3 82 18 93/59 96% ON 2L/NC H/H-10.3/33.2 K-3.2 IS:IV CEFEPIME Q12 PROTONIX PO QD SYNTHROID PO QAM HEPARIN SQ Q12 NOW ON MED/SURG 4 EAST DCP: PATIENT IS FROM HOME
--- NOTE | 2018-06-26 15:26 | NUR ---
*-* INSURANCE *--* ALL CLINICALS AND REVIEWS HAVE BEEN FAXED TO: [facility] [phone] F [phone]
--- NOTE | 2018-06-26 15:35 | NUR ---
Social Service Note SW attempted to obtain information from patient regarding prior housing and an emergency contact. Patient received pain medication and is unable to provide SW information. SW contacted [facility] [phone], who provided SW the contact number of the scale manager Jennifer [phone] at [facility]. Jennifer provided SW the contact number of Davidmari Vegas [phone] complex SW. Eric leon patient is living at [facility] and Buck Landis [phone] is the faculty administrator. Eric leon patient will require short term SNF placement upon discharge, patient is currently to high level to return to [facility]. Will monitor.
[2018-06-26 16:00] VITALS: BP 104/69
--- NOTE | 2018-06-26 18:08 | Cardiology Report ---
APPROVED REPORT EKG Measurement Heart [id number] Sinus rhythm with premature atrial complexes Left axis deviation Low voltage QRS Right bundle branch block Inferior infarct, age undetermined Abnormal ECG
--- NOTE | 2018-06-26 19:27 | NUR ---
HAND-OFF: Report given to LEVI Landis.
[2018-06-26] MEDS ORDERED: NS 275ml ONE (19:38)
[2018-06-26] MEDS ORDERED: Tubing IV Secondary IV ONE (19:38)
[2018-06-26] MEDS ORDERED: D5 1/2NS 1000ml IV ONE (19:38)
--- NOTE | 2018-06-26 19:44 | NUR ---
NURSE NOTES: Received patient in bed, no acute distress noted, VSS, afebrile. Call light within reach, bed is in low position, locked and alarm is on. Will continue to monitor for safety and comfort.
[2018-06-26 20:00] VITALS: BP 107/66
[2018-06-26] MEDS: Dyna-Hex 2% Top Sol 2oz TOPIC SCH (20:27)
[2018-06-26] MEDS: traMADol 50mg tab ORAL PRN (20:27)
[2018-06-27] VITALS: BP 121/63
[2018-06-27 04:00] VITALS: BP 126/78
[2018-06-27 04:44] LABS: BASOPHILS % (AUTO) 1.2 % (0.0-2.0); EOSINOPHILS % (AUTO) 4.6 % (0.0-3.0); HEMATOCRIT 32.3 % (37.0-47.0); MEAN CORPUSCULAR VOLUME 89 FL (80-99); MONOCYTES % (AUTO) 7.6 % (1.0-10.0); NEUTROPHILS % (AUTO) 59.6 % (45.0-75.0); PLATELET COUNT 257 K/UL (150-450); RED BLOOD COUNT 3.64 M/UL (4.20-5.40); RED CELL DISTRIBUTION WIDTH 14.9 % (11.6-14.8); WHITE BLOOD COUNT 7.8 K/UL (4.8-10.8)
[2018-06-27 04:56] LABS: ANION GAP 3 mmol/L (5-15); BLOOD UREA NITROGEN 7 mg/dL (7-18); CARBON DIOXIDE 34 MMOL/L (21-32); CHLORIDE 106 MMOL/L (98-107); CREATININE 0.5 MG/DL (0.55-1.30); POTASSIUM 3.4 MMOL/L (3.5-5.1); SODIUM 143 MMOL/L (136-145)
[2018-06-27] MEDS: Cyclobenzaprine 10mg Tab ORAL SCH ×3 (06:03→21:05)
--- NOTE | 2018-06-27 07:01 | NUR ---
HAND-OFF: Report given to Manuela SIMS.
--- NOTE | 2018-06-27 07:34 | NUR ---
NURSE NOTES: Patient is alert and oriented x3. Patient is on 4 liters oxygen via nasal cannula. Patient is resting in bed. Bed is locked, in lowest position, and call light is within reach. Patient is near nurse's station. Will continue to monitor.
--- NOTE | 2018-06-27 07:41 | NUR ---
NURSE NOTES: Potassium this AM 3.4. Dr. Herrera notified. New order received.
[2018-06-27 08:00] VITALS: BP 150/75
[2018-06-27] MEDS: Heparin 5000 units/ml inj SUBQ SCH ×2 (08:55→21:05)
--- NOTE | 2018-06-27 09:05 | Infectious Diseases Prog Note ---
Assessment/Plan Assessment/Plan 68 yo female with complicated PMHx who presented to the ED on 06/19/18 with N/V and progressive abdominal pain. HAP Positive sputum 06/21/18 - P.a. Acinetobacter, K. pneumo and NF - All sen to levo and Cefepime CXR 06/23/18 - Bilateral diffuse interstitial and airspace disease, stable or slightly worse compared to previous study of one day earlier Leukocytosis - resolved No fevers SBO S/p lysis of adhesions and small-bowel resection with primary anastomosis on PLAN - Continue Cefepime #3/7 for HAP - 06/23/18 SP - Zosyn #2 - f/u Repeat CXR - read pending - Monitor CBC and Temps We will continue to follow the patient during this hospitalization. Subjective Allergies: Coded Allergies: ACETAMINOPHEN (Verified Allergy, Unknown, itching, 06/21/18) CODEINE (Verified Allergy, Unknown, 06/21/18) Uncoded Allergies: iodoform packing (Allergy, Unknown, redness, swelling, 06/21/18) Subjective Afebrile No Leukocytosis Satting well on 2L Objective Vital Signs Last 24 Hour Vital Signs Date Time Temp Pulse Resp B/P (MAP) Pulse Ox O2 Delivery O2 Flow Rate FiO2 06/27/18 04:00 97.0 85 18 126/78 (94) 85 06/27/18 00:00 97.6 99 18 121/63 (82) 06/26/18 22:05 96 Nasal Cannula 2.0 28 06/26/18 22:05 Nasal Cannula 2.0 28 06/26/18 21:00 Nasal Cannula 4.0 Nasal Cannula 4.0 06/26/18 20:00 97.8 84 18 107/66 (80) 06/26/18 16:00 98.7 80 12 104/69 (81) 97 06/26/18 12:00 98.3 82 18 93/59 (70) 96 Height (Feet): 5 Height (Inches): 3.00 Weight (Pounds): 135 Objective Gen: NAD, Obese woman, On 2L NC HEENT: NCAT, MMM, EOMI LUNGS: Course B/L , No W CARDS: RRR, S1, S2, No M/R/G, ABD: Soft, NT, ND, + BS NEURO: A/O x 2, Strength and Sensation Grossly intact Laboratory Tests Test 06/27/18 04:00 White Blood Count 7.8 K/UL (4.8-10.8) Red Blood Count 3.64 M/UL (4.20-5.40) L Hemoglobin 10.0 G/DL (12.0-16.0) L Hematocrit 32.3 % (37.0-47.0) L Mean Corpuscular Volume 89 FL (80-99) Mean Corpuscular Hemoglobin 27.6 PG (27.0-31.0) Mean Corpuscular Hemoglobin Concent 31.1 G/DL (32.0-36.0) L Red Cell Distribution Width 14.9 % (11.6-14.8) H Platelet Count 257 K/UL (150-450) Mean Platelet Volume 6.5 FL (6.5-10.1) Neutrophils (%) (Auto) 59.6 % (45.0-75.0) Lymphocytes (%) (Auto) 27.0 % (20.0-45.0) Monocytes (%) (Auto) 7.6 % (1.0-10.0) Eosinophils (%) (Auto) 4.6 % (0.0-3.0) H Basophils (%) (Auto) 1.2 % (0.0-2.0) Sodium Level 143 MMOL/L (136-145) Potassium Level 3.4 MMOL/L (3.5-5.1) L Chloride Level 106 MMOL/L (98-107) Carbon Dioxide Level 34 MMOL/L (21-32) H Anion Gap 3 mmol/L (5-15) L Blood Urea Nitrogen 7 mg/dL (7-18) Creatinine 0.5 MG/DL (0.55-1.30) L Estimat Glomerular Filtration Rate > 60 mL/min (>60) Glucose Level 79 MG/DL (74-106) Calcium Level 8.0 MG/DL (8.5-10.1) L Current Medications Medications (Trade) Dose Ordered Sig/Sandra Route PRN Reason Start Time Stop Time Status Last Admin Dose Admin Al Hydroxide/Mg Hydroxide (Mylanta II) 30 ml Q6H PRN ORAL dyspepsia 06/25/18 14:00 07/19/18 13:59 Cefepime HCl 1 gm/ Dextrose 55 ml @ 110 mls/hr Q12HR@0000,1200 IVPB 06/27/18 00:00 07/04/18 00:00 06/26/18 23:44 Chlorhexidine Gluconate (Chioma-Hex 2%) 1 applic DAILY@2000 TOPIC 06/25/18 20:00 07/24/18 19:59 06/26/18 20:27 Cyclobenzaprine HCl (Flexeril) 10 mg Q8HR ORAL 06/25/18 14:00 07/19/18 21:59 06/27/18 06:03 Dextrose (Dextrose 50%) 25 ml Q30M PRN IV Hypoglycemia 06/25/18 13:45 07/23/18 15:44 Dextrose (Dextrose 50%) 50 ml Q30M PRN IV Hypoglycemia 06/25/18 13:45 07/23/18 15:44 Diphenhydramine HCl (Benadryl) 25 mg Q6H PRN ORAL Itching/Pruritis 06/25/18 14:00 07/19/18 13:59 Gabapentin (Neurontin) 400 mg THREE TIMES A DAY ORAL 06/25/18 18:00 07/20/18 08:59 06/27/18 08:55 Heparin Sodium (Porcine) (Heparin 5000 units/ml) 5,000 units EVERY 12 HOURS SUBQ 06/25/18 21:00 07/20/18 08:59 06/27/18 08:55 Levothyroxine Sodium (Synthroid) 100 mcg ACBREAKFAST ORAL 06/26/18 06:30 07/20/18 06:29 06/27/18 06:03 Lorazepam (Ativan 2mg/ml 1ml) 1 mg Q4H PRN IV agitation 06/25/18 14:00 06/28/18 13:59 Nitroglycerin (Ntg) 0.4 mg Q5M X 3 DOSES PRN SL Prn Chest Pain 06/25/18 13:45 07/19/18 17:26 Ondansetron HCl (Zofran) 4 mg Q6H PRN IVP Nausea & Vomiting 06/25/18 14:00 07/19/18 13:59 Pantoprazole (Protonix) 40 mg DAILY ORAL 06/26/18 09:00 07/26/18 08:59 06/27/18 08:55 Polyethylene Glycol (Miralax) 17 gm HSPRN PRN ORAL Constipation 06/25/18 21:00 07/19/18 20:59 Potassium Chloride 100 ml @ 100 mls/hr Q1H IVPB 06/27/18 09:00 06/27/18 12:59 Promethazine HCl 25 mg/Sodium Chloride 56 ml @ 110 mls/hr Q6H PRN IV Refractory N/V 06/25/18 14:13 07/19/18 14:12 Temazepam (Restoril) 15 mg HSPRN PRN ORAL Insomnia 06/25/18 21:00 06/28/18 20:59 Tramadol HCl (Ultram) 50 mg Q6H PRN ORAL Moderate pain(4-6) 06/25/18 18:19 07/02/18 18:18 06/26/18 20:27 Popeye Bailey MD Jun 27, 2018 09:05
--- NOTE | 2018-06-27 09:29 | NUR ---
RADIOLOGY DEPT., CHEST X-RAY DONE.-P.DYE
[2018-06-27] MEDS: traMADol 50mg tab ORAL PRN ×2 (10:32→17:21)
--- NOTE | 2018-06-27 10:52 | GI Progress Note ---
Assessment/Plan Problems: (1) S/P small bowel resection ICD Codes: Z90.49 - Acquired absence of other specified parts of digestive tract SNOMED: 29961889, 968600178, 923501810764264 (2) Abdominal pain ICD Codes: R10.9 - Unspecified abdominal pain SNOMED: 98470534 (3) Hypothyroidism ICD Codes: E03.9 - Hypothyroidism, unspecified SNOMED: 49874284 (4) Chronic pain ICD Codes: G89.29 - Other chronic pain SNOMED: 23949468 (5) Diabetes mellitus ICD Codes: E11.9 - Type 2 diabetes mellitus without complications SNOMED: 03727112 Status: stable, unchanged Status Narrative Discussed with Dr. Mesa. Assessment/Plan Assessment - SBO - s/p exlap - abd pain Recommendations -Diet per surgery, patient on regular diet - post op care - Surgical follow up - IVF - Follow exam -Pain management - ppi The patient was seen and examined at bedside and all new and available data was reviewed in the patients chart. I agree with the above findings, impression and plan. (Patient seen earlier today. Signature stamp does not reflect patient encounter time.). - Olivier Mesa MD Subjective Subjective Abdominal pain improved decrease in appetite Objective Last 24 Hour Vital Signs Date Time Temp Pulse Resp B/P (MAP) Pulse Ox O2 Delivery O2 Flow Rate FiO2 06/27/18 08:15 Nasal Cannula 4.0 Nasal Cannula 4.0 06/27/18 08:00 98.8 99 20 150/75 (100) 98 06/27/18 04:00 97.0 85 18 126/78 (94) 85 06/27/18 00:00 97.6 99 18 121/63 (82) 06/26/18 22:05 96 Nasal Cannula 2.0 28 06/26/18 22:05 Nasal Cannula 2.0 28 06/26/18 21:00 Nasal Cannula 4.0 Nasal Cannula 4.0 06/26/18 20:00 97.8 84 18 107/66 (80) 06/26/18 16:00 98.7 80 12 104/69 (81) 97 06/26/18 12:00 98.3 82 18 93/59 (70) 96 Intake and Output 06/26/18 06/27/18 19:00 07:00 Intake Total 500 ml Output Total 450 ml Balance 50 ml Intake Oral 500 ml Output Urine Total 450 ml Laboratory Tests Test 06/27/18 04:00 White Blood Count 7.8 K/UL (4.8-10.8) Red Blood Count 3.64 M/UL (4.20-5.40) L Hemoglobin 10.0 G/DL (12.0-16.0) L Hematocrit 32.3 % (37.0-47.0) L Mean Corpuscular Volume 89 FL (80-99) Mean Corpuscular Hemoglobin 27.6 PG (27.0-31.0) Mean Corpuscular Hemoglobin Concent 31.1 G/DL (32.0-36.0) L Red Cell Distribution Width 14.9 % (11.6-14.8) H Platelet Count 257 K/UL (150-450) Mean Platelet Volume 6.5 FL (6.5-10.1) Neutrophils (%) (Auto) 59.6 % (45.0-75.0) Lymphocytes (%) (Auto) 27.0 % (20.0-45.0) Monocytes (%) (Auto) 7.6 % (1.0-10.0) Eosinophils (%) (Auto) 4.6 % (0.0-3.0) H Basophils (%) (Auto) 1.2 % (0.0-2.0) Sodium Level 143 MMOL/L (136-145) Potassium Level 3.4 MMOL/L (3.5-5.1) L Chloride Level 106 MMOL/L (98-107) Carbon Dioxide Level 34 MMOL/L (21-32) H Anion Gap 3 mmol/L (5-15) L Blood Urea Nitrogen 7 mg/dL (7-18) Creatinine 0.5 MG/DL (0.55-1.30) L Estimat Glomerular Filtration Rate > 60 mL/min (>60) Glucose Level 79 MG/DL (74-106) Calcium Level 8.0 MG/DL (8.5-10.1) L Height (Feet): 5 Height (Inches): 3.00 Weight (Pounds): 135 General Appearance: WD/WN, no apparent distress, alert Cardiovascular: normal rate Respiratory/Chest: normal breath sounds, no respiratory distress Abdominal Exam: normal bowel sounds, non tender, soft, incision site Extremities: non-tender Roberson,Shruti-Obi EDI COORDINATOR Jun 27, 2018 10:52
--- NOTE | 2018-06-27 11:03 | Diagnostic Imaging Report ---
Indication: Cough Technique: One view of the chest Comparison: Post PICC radiograph 06/24/2018 Findings: Right hemidiaphragm is elevated. Bilateral diffuse interstitial and airspace disease, greater on the right than on the left, appears comparable to the prior exam. Left chest pacemaker, right arm PICC remain. The heart size is normal. Impression: Bilateral interstitial and airspace disease, unchanged over 3 days. Suspect significant chronic component. Correlate with clinical findings Other findings as noted
--- NOTE | 2018-06-27 11:37 | NUR ---
RD ASSESSMENT & RECOMMENDATIONS SEE CARE ACTIVITY FOR COMPLETE ASSESSMENT DAILY ESTIMATED NEEDS: Needs based on Surgery 58.6kg 25-30 kcals/kg 9547-8636 total kcals 1-2 g protein/kg 59-118 g total protein 25-30 mL/kg 7373-0464 total fluid mLs NUTRITION DIAGNOSIS: 1) Altered GI fxn r/t SBO as evidenced by s/p ex lap w/ bowel resection and lysis of adhesions, diet advanced to ms ground, poor po intake. CURRENT DIET:Regular ms ground PO DIET RECOMMENDATIONS: Rec BLAND/ LOW FIBER DIET / texture as tolerated ADDITIONAL RECOMMENDATIONS: 1) CALIBRATED BEDSCALE WTS 2) Diet per surgery, s/p ex lap of bowel resection 3) Check lytes and LFTs daily 4) Monitor BGs closely, h/o DM 5) Add Ensure 1 bottle BID
[2018-06-27 12:00] VITALS: BP 133/71
[2018-06-27] MEDS: Cefepime HCl 1 GM in D5W 55 ML IVPB SCH (12:05)
--- NOTE | 2018-06-27 15:46 | NUR ---
P.T Note:late entry 1100 Consult received. P.T evaluation attempted however patient declined to participate to c/o not feeling well. Pt requested to be seen at a later time. P.T will follow if schedule permits.
[2018-06-27] MEDS ORDERED: D5 1/2NS 1000ml IV ONE (15:48)
[2018-06-27] MEDS ORDERED: NS 275ml ONE (15:48)
[2018-06-27] MEDS ORDERED: NS 500ML ONE (15:48)
[2018-06-27] MEDS ORDERED: D5W 275ml ONE (15:48)
--- NOTE | 2018-06-27 15:52 | NUR ---
NURSE NOTES: Patient reports living in 7 bedroom home. Patient reports that she rents her own room. Patient requesting to go back home to prior living arrangement. Patient cannot ambulate and reports that she moves around using her own wheelchair. Spoke to Assembly Technician and patient cannot return home unless independent. Patient assessed to see if she can transfer to and from wheelchair independently. 2 RN's present to assess if patient could transfer to and from wheelchair. Patient slides onto chair, patient assessed to be unsteady and unsafe when transferring. Assembly Technician notified. Per Social workers patient will need to discharge to SNF. Dr. Herrera notified.
[2018-06-27 16:00] VITALS: BP 152/95
--- NOTE | 2018-06-27 16:02 | Discharge Summary ---
Discharge Summary Hospital Course Date of Admission Jun 19, 2018 at 19:30 Date of Discharge Admitting Diagnosis ABDOMINAL PAIN HPI Key Blair is a 68 year old female who was admitted on Jun 19, 2018 at 19:30 for Abdominal Pain Hospital Course Last 24 Hour Vital Signs Date Time Temp Pulse Resp B/P (MAP) Pulse Ox O2 Delivery O2 Flow Rate FiO2 06/27/18 12:00 98.6 77 20 133/71 (91) 98 06/27/18 08:15 Nasal Cannula 4.0 Nasal Cannula 4.0 06/27/18 08:00 98.8 99 20 150/75 (100) 98 06/27/18 04:00 97.0 85 18 126/78 (94) 85 06/27/18 00:00 97.6 99 18 121/63 (82) 06/26/18 22:05 96 Nasal Cannula 2.0 28 06/26/18 22:05 Nasal Cannula 2.0 28 06/26/18 21:00 Nasal Cannula 4.0 Nasal Cannula 4.0 06/26/18 20:00 97.8 84 18 107/66 (80) General: No acute distress, awake and alert HEENT: NCAT, sclera anicteric, PERRL, EOMI. Neck: Supple, no significant jugular venous distention, Lungs: Good inspiratory effort, clear to auscultation bilaterally, no Wheeze or Rales. Heart: Regular rate and rhythm, normal S1/S2, no murmurs Abdomen: soft, less tender, nondistended. Normoactive bowel sounds. Extremities: No Cyanosis , clubbing or edema, Right Piccline. Neuro: A&O x 3, Able to move all extremities equally. Psych: Normal mood and affect Discharge Discharge Disposition Patient was discharged to Satinder Brewer MD Jun 27, 2018 16:02
--- NOTE | 2018-06-27 16:06 | NUR ---
DISCHARGE PLANNING PER MD'S ORDER PATIENT HAS BEEN REFERRED TO [facility] ON [facility] WAITING FOR ACCEPTANCE AND ASSIGNED ROOM Addendum: 06/27/18 at 1641 by MELISSA BUI, MOCCASIN SEWER MOCCASIN SEWER SPOKE WITH TALAT AT [facility]. SHE IS WORKING ON OBTAINING AUTHORIZATION FOR ACCEPTANCE AND PROBABLY WILL NOT BE ABLE TO ACCEPT PATIENT UNTIL TOMORROW (SATURDAY)
--- NOTE | 2018-06-27 16:07 | NUR ---
*-* INSURANCE *--* ALL CLINICALS AND REVIEWS HAVE BEEN FAXED TO: [facility] [phone] F [phone]
--- NOTE | 2018-06-27 16:43 | General Surgery Progress Note ---
General Surgery-Progress Note Subjective Procedure Performed ex lap, lysis of adhesions and small bowel resection with primary anastomosis Symptoms: improved, BM Objective Last 24 Hour Vital Signs Date Time Temp Pulse Resp B/P (MAP) Pulse Ox O2 Delivery O2 Flow Rate FiO2 06/27/18 16:00 98.0 99 18 152/95 (114) 96 06/27/18 12:00 98.6 77 20 133/71 (91) 98 06/27/18 08:15 Nasal Cannula 4.0 Nasal Cannula 4.0 06/27/18 08:00 98.8 99 20 150/75 (100) 98 06/27/18 04:00 97.0 85 18 126/78 (94) 85 06/27/18 00:00 97.6 99 18 121/63 (82) 06/26/18 22:05 96 Nasal Cannula 2.0 28 06/26/18 22:05 Nasal Cannula 2.0 28 06/26/18 21:00 Nasal Cannula 4.0 Nasal Cannula 4.0 06/26/18 20:00 97.8 84 18 107/66 (80) I&O Intake and Output 06/26/18 06/27/18 19:00 07:00 Intake Total 500 ml Output Total 450 ml Balance 50 ml Intake Oral 500 ml Output Urine Total 450 ml Wound: clean, intact Drains: none Respiratory: clear Abdomen: soft, flat, non-tender, present bowel sounds Extremities: no tenderness Laboratory Tests Test 06/27/18 04:00 White Blood Count 7.8 K/UL (4.8-10.8) Red Blood Count 3.64 M/UL (4.20-5.40) L Hemoglobin 10.0 G/DL (12.0-16.0) L Hematocrit 32.3 % (37.0-47.0) L Mean Corpuscular Volume 89 FL (80-99) Mean Corpuscular Hemoglobin 27.6 PG (27.0-31.0) Mean Corpuscular Hemoglobin Concent 31.1 G/DL (32.0-36.0) L Red Cell Distribution Width 14.9 % (11.6-14.8) H Platelet Count 257 K/UL (150-450) Mean Platelet Volume 6.5 FL (6.5-10.1) Neutrophils (%) (Auto) 59.6 % (45.0-75.0) Lymphocytes (%) (Auto) 27.0 % (20.0-45.0) Monocytes (%) (Auto) 7.6 % (1.0-10.0) Eosinophils (%) (Auto) 4.6 % (0.0-3.0) H Basophils (%) (Auto) 1.2 % (0.0-2.0) Sodium Level 143 MMOL/L (136-145) Potassium Level 3.4 MMOL/L (3.5-5.1) L Chloride Level 106 MMOL/L (98-107) Carbon Dioxide Level 34 MMOL/L (21-32) H Anion Gap 3 mmol/L (5-15) L Blood Urea Nitrogen 7 mg/dL (7-18) Creatinine 0.5 MG/DL (0.55-1.30) L Estimat Glomerular Filtration Rate > 60 mL/min (>60) Glucose Level 79 MG/DL (74-106) Calcium Level 8.0 MG/DL (8.5-10.1) L Assessment Additional Comments S/P bowel resection Plan Additional Comments per PCP Moshe Bryan MD Jun 27, 2018 16:43
--- NOTE | 2018-06-27 16:53 | NUR ---
Social Service Note After nursing assessment of patient with transfers from bed to w/c it appears patient is not safe to return to an independent living environment. LEYDI discussed with board and care dive supervisor Buck [phone]. Buck HOLLEY, home health nurse Mayuri [phone] discussed with patient on a three way call. Patient verbalized understanding and was in agreement with short term rehab. Patient is aware she may return to her independent living board and care upon completion of rehab. MELO has referred patient to [facility], pending insurance auth. LEYDI informed charge nurse as primary nurse was not available.
--- NOTE | 2018-06-27 19:29 | NUR ---
HAND-OFF: Report given to LEVI Santacruz.
--- NOTE | 2018-06-27 20:10 | NUR ---
NURSE NOTES: Patient in bed, asleep, arousable to name, verbally responsive. No complaints of pain at this time. No s/s respiratory distress noted. PICC in the right upper arm double lumen in place, patent, had blood return. Bed in low position, locked, side rails padded, bed alarm on. Will continue to monitor. Addendum: 06/27/18 at 2096 by SUZI LOBO RN RN Yamila in place, draining.
[2018-06-27 20:41] VITALS: BP 111/65
[2018-06-27] MEDS: Dyna-Hex 2% Top Sol 2oz TOPIC SCH (21:03)
--- NOTE | 2018-06-27 23:15 | Discharge Summary ---
DATE OF ADMISSION: 06/19/2018 DATE OF DISCHARGE: 06/27/2018 HOSPITAL COURSE: This is a 68-year-old very delightful female with past medical history of COPD, congestive heart failure, history of tracheostomy and PEG placement, status post removal, hypothyroidism, who presented to hospital complaining of intractable nausea and vomiting associated with abdominal pain. Shortly after initial evaluation, the patient was admitted to the hospital with bowel obstruction. Throughout the hospital course, the patient was consulted with Dr. Moshe Bryan from General surgery, Dr. Popeye Bailey from Infectious Disease, Dr. Chris Elias from Cardiology and Dr. Olivier Mesa from Gastroenterology. Throughout the hospital course started on broad-spectrum antibiotic with cefepime. Her status gradually improved, initially on bowel rest and subsequently was able to tolerate oral intake and the patient has been discharged home today to be followed by as outpatient with my office. I advised the patient to follow up in my office. My card was provided to the patient. FINAL DIAGNOSES: 1. Abdominal pain, nausea and vomiting most likely secondary to small bowel obstruction. 2. COPD. 3. Congestive heart failure. 4. Sick sinus syndrome status post pacemaker. 5. Hypothyroidism. 6. Diabetes type 2. 7. Interstitial lung disease. 8. History of PE status post IVC filter. 9. History of acute kidney injury. MEDICATION ON DISCHARGE: Continue discharge medication list. ACTIVITY: As tolerated. DIET: Cardiac diet. The patient was noted to have surgical intervention, exploratory laparotomy with small bowel resection with anastomosis of the lysis adhesion on 06/21/[address] Bryan from General surgery was done. Satinder Brewer M.D. DR: Lillian JOB#: [id number] CC:
[2018-06-28] VITALS: BP 119/67
[2018-06-28] MEDS: Cefepime HCl 1 GM in D5W 55 ML IVPB SCH ×3 (00:01→23:05)
[2018-06-28 04:15] VITALS: BP 108/62
[2018-06-28] MEDS: traMADol 50mg tab ORAL PRN (05:21)
[2018-06-28] MEDS: Cyclobenzaprine 10mg Tab ORAL SCH ×3 (06:19→21:05)
--- NOTE | 2018-06-28 06:31 | NUR ---
NURSE NOTES: Patient cleaned, repositioned, no distress.
--- NOTE | 2018-06-28 07:19 | NUR ---
HAND-OFF: Report given to GE WHITAKER RN.
--- NOTE | 2018-06-28 07:58 | NUR ---
NURSE NOTES: Patient alert x4, on nasal cannula at 4 liter, no sign of distress and shortness of breath; no sign of chest pain; IV Right Upper PICC flushes well, skin discoloration under the dressing; Driscoll drains yellow urine; side rails padded for seizure percussion; bed at lowest position, breaks engaged. call light within reach; will keep monitoring.
[2018-06-28 08:00] VITALS: BP 139/85
[2018-06-28] MEDS: Heparin 5000 units/ml inj SUBQ SCH ×2 (08:14→21:03)
--- NOTE | 2018-06-28 09:08 | Infectious Diseases Prog Note ---
Assessment/Plan Assessment/Plan 68 yo female with complicated PMHx who presented to the ED on 06/19/18 with N/V and progressive abdominal pain. HAP Positive sputum 06/21/18 - P.a. Acinetobacter, K. pneumo and NF - All sen to levo and Cefepime CXR 06/23/18 - Bilateral diffuse interstitial and airspace disease, stable or slightly worse compared to previous study of one day earlier Leukocytosis - resolved No fevers SBO S/p lysis of adhesions and small-bowel resection with primary anastomosis on PLAN - Continue Cefepime #06/22 for HAP - 06/23/18 SP - Zosyn #2 - f/u Repeat CXR - read pending - Monitor CBC and Temps We will continue to follow the patient during this hospitalization. Subjective Allergies: Coded Allergies: ACETAMINOPHEN (Verified Allergy, Unknown, itching, 06/21/18) CODEINE (Verified Allergy, Unknown, 06/21/18) Uncoded Allergies: iodoform packing (Allergy, Unknown, redness, swelling, 06/21/18) Subjective Afebrile No Leukocytosis Satting well on 4L Objective Vital Signs Last 24 Hour Vital Signs Date Time Temp Pulse Resp B/P (MAP) Pulse Ox O2 Delivery O2 Flow Rate FiO2 06/28/18 08:00 97.5 74 19 139/85 (103) 97 06/28/18 06:49 98.0 06/28/18 05:51 98.0 06/28/18 04:15 98.0 73 18 108/62 (77) 99 06/28/18 00:00 97.4 73 18 119/67 (84) 100 06/27/18 22:18 Nasal Cannula 4.0 06/27/18 20:41 98.5 77 18 111/65 (80) 96 06/27/18 19:18 95 Nasal Cannula 2.0 28 06/27/18 19:18 Nasal Cannula 2.0 28 06/27/18 16:00 98.0 99 18 152/95 (114) 96 06/27/18 12:00 98.6 77 20 133/71 (91) 98 Height (Feet): 5 Height (Inches): 3.00 Weight (Pounds): 135 Objective Gen: NAD, On 4L NC HEENT: NCAT, MMM, EOMI LUNGS: Course B/L , No W CARDS: RRR, S1, S2, No M/R/G, ABD: Soft, NT, ND, + BS NEURO: A/O x 2, Strength and Sensation Grossly intact Current Medications Medications (Trade) Dose Ordered Sig/Sandra Route PRN Reason Start Time Stop Time Status Last Admin Dose Admin Cefepime HCl 1 gm/ Dextrose 55 ml @ 110 mls/hr Q12HR@0000,1200 IVPB 06/27/18 00:00 07/04/18 00:00 06/28/18 00:01 Chlorhexidine Gluconate (Chioma-Hex 2%) 1 applic DAILY@2000 TOPIC 06/25/18 20:00 07/24/18 19:59 06/27/18 21:03 Cyclobenzaprine HCl (Flexeril) 10 mg Q8HR ORAL 06/25/18 14:00 07/19/18 21:59 06/28/18 06:19 Dextrose (Dextrose 50%) 25 ml Q30M PRN IV Hypoglycemia 06/25/18 13:45 07/23/18 15:44 Dextrose (Dextrose 50%) 50 ml Q30M PRN IV Hypoglycemia 06/25/18 13:45 07/23/18 15:44 Gabapentin (Neurontin) 400 mg THREE TIMES A DAY ORAL 06/25/18 18:00 07/20/18 08:59 06/28/18 08:13 Heparin Sodium (Porcine) (Heparin 5000 units/ml) 5,000 units EVERY 12 HOURS SUBQ 06/25/18 21:00 07/20/18 08:59 06/28/18 08:14 Levothyroxine Sodium (Synthroid) 100 mcg ACBREAKFAST ORAL 06/26/18 06:30 07/20/18 06:29 06/28/18 06:19 Pantoprazole (Protonix) 40 mg DAILY ORAL 06/26/18 09:00 07/26/18 08:59 06/28/18 08:13 Temazepam (Restoril) 15 mg HSPRN PRN ORAL Insomnia 06/25/18 21:00 06/28/18 20:59 Tramadol HCl (Ultram) 50 mg Q6H PRN ORAL Moderate pain(4-6) 06/25/18 18:19 07/02/18 18:18 06/28/18 05:21 Popeye Bailey MD Jun 28, 2018 09:08
--- NOTE | 2018-06-28 10:24 | General Progress Note ---
Assessment/Plan Problem List: (1) S/P small bowel resection ICD Codes: Z90.49 - Acquired absence of other specified parts of digestive tract SNOMED: 51016966, 504059724, 178477200881568 (2) Pacemaker ICD Codes: Z95.0 - Presence of cardiac pacemaker SNOMED: 992553562 (3) CHF (congestive heart failure) ICD Codes: I50.9 - Heart failure, unspecified SNOMED: 25810165 (4) Diabetes mellitus ICD Codes: E11.9 - Type 2 diabetes mellitus without complications SNOMED: 30944002 (5) COPD (chronic obstructive pulmonary disease) ICD Codes: J44.9 - Chronic obstructive pulmonary disease, unspecified SNOMED: 90980898 Assessment/Plan Assessment - SBO - s/p exlap - abd pain Recommendations -Diet per surgery, patient on regular diet - post op care - Surgical follow up - Follow exam -Pain management - ppi Subjective ROS Limited/Unobtainable: Yes Allergies: Coded Allergies: ACETAMINOPHEN (Verified Allergy, Unknown, itching, 06/21/18) CODEINE (Verified Allergy, Unknown, 06/21/18) Uncoded Allergies: iodoform packing (Allergy, Unknown, redness, swelling, 06/21/18) Objective Last 24 Hour Vital Signs Date Time Temp Pulse Resp B/P (MAP) Pulse Ox O2 Delivery O2 Flow Rate FiO2 06/28/18 09:00 Nasal Cannula 4.0 06/28/18 08:00 97.5 74 19 139/85 (103) 97 06/28/18 06:49 98.0 06/28/18 05:51 98.0 06/28/18 04:15 98.0 73 18 108/62 (77) 99 06/28/18 00:00 97.4 73 18 119/67 (84) 100 06/27/18 22:18 Nasal Cannula 4.0 06/27/18 20:41 98.5 77 18 111/65 (80) 96 06/27/18 19:18 95 Nasal Cannula 2.0 28 06/27/18 19:18 Nasal Cannula 2.0 28 06/27/18 16:00 98.0 99 18 152/95 (114) 96 06/27/18 12:00 98.6 77 20 133/71 (91) 98 Intake and Output 06/27/18 06/28/18 18:59 06:59 Intake Total 150 ml 120 ml Output Total 400 ml Balance 150 ml -280 ml Intake Oral 150 ml 120 ml Output Urine Total 400 ml # Bowel Movements 1 Height (Feet): 5 Height (Inches): 3.00 Weight (Pounds): 135 General Appearance: no apparent distress EENT: normal ENT inspection Neck: supple Cardiovascular: normal rate Respiratory/Chest: decreased breath sounds Abdomen: hypoactive bowel sounds, tender Extremities: non-tender Olivier Mesa MD Jun 28, 2018 10:24
[2018-06-28] MEDS ORDERED: D5 1/2NS 1000ml IV ONE (10:41)
[2018-06-28] MEDS ORDERED: Tubing IV Secondary IV ONE (10:45)
[2018-06-28] MEDS ORDERED: NS 275ml ONE (10:45)
[2018-06-28 12:00] VITALS: BP 138/84
[2018-06-28 16:00] VITALS: BP 127/80
--- NOTE | 2018-06-28 16:02 | NUR ---
PT Note PT toy completed, treatment initiated. Patient was able to transfer to her own WC with min/CGA. Patient's WC brakes are found to be defective, making patient at a risk for falls. Patient needs a WC with swing-away arm rests. Also noted patient to become SOB after transfer training with O2 sat at 85%. Patient was placed on O2 and O2 sats increased to 97%. Patient needs physical therapy to increase her muscle strength and balance to improve her safety in mobility. Addendum: 06/28/18 at 1602 by DIANA PARKER PT Amended: Links added.
--- NOTE | 2018-06-28 16:22 | Internal Med Progress Note ---
Subjective Physician Name Satinder Brewer Attending Physician Satinder Brewer MD Current Medications Medications (Trade) Dose Ordered Sig/Sandra Route PRN Reason Start Time Stop Time Status Last Admin Dose Admin Cefepime HCl 1 gm/ Dextrose 55 ml @ 110 mls/hr Q12HR@0000,1200 IVPB 06/27/18 00:00 07/04/18 00:00 06/28/18 13:05 Chlorhexidine Gluconate (Chioma-Hex 2%) 1 applic DAILY@2000 TOPIC 06/25/18 20:00 07/24/18 19:59 06/27/18 21:03 Cyclobenzaprine HCl (Flexeril) 10 mg Q8HR ORAL 06/25/18 14:00 07/19/18 21:59 06/28/18 13:03 Dextrose (Dextrose 50%) 25 ml Q30M PRN IV Hypoglycemia 06/25/18 13:45 07/23/18 15:44 Dextrose (Dextrose 50%) 50 ml Q30M PRN IV Hypoglycemia 06/25/18 13:45 07/23/18 15:44 Gabapentin (Neurontin) 400 mg THREE TIMES A DAY ORAL 06/25/18 18:00 07/20/18 08:59 06/28/18 13:03 Heparin Sodium (Porcine) (Heparin 5000 units/ml) 5,000 units EVERY 12 HOURS SUBQ 06/25/18 21:00 07/20/18 08:59 06/28/18 08:14 Levothyroxine Sodium (Synthroid) 100 mcg ACBREAKFAST ORAL 06/26/18 06:30 07/20/18 06:29 06/28/18 06:19 Pantoprazole (Protonix) 40 mg DAILY ORAL 06/26/18 09:00 07/26/18 08:59 06/28/18 08:13 Temazepam (Restoril) 15 mg HSPRN PRN ORAL Insomnia 06/25/18 21:00 06/28/18 20:59 Tramadol HCl (Ultram) 50 mg Q6H PRN ORAL Moderate pain(4-6) 06/25/18 18:19 07/02/18 18:18 06/28/18 05:21 Allergies: Coded Allergies: ACETAMINOPHEN (Verified Allergy, Unknown, itching, 06/21/18) CODEINE (Verified Allergy, Unknown, 06/21/18) Uncoded Allergies: iodoform packing (Allergy, Unknown, redness, swelling, 06/21/18) Subjective Awake, alert, responsive, on nasal cannula. Objective Last Vital Signs Date Time Temp Pulse Resp B/P (MAP) Pulse Ox O2 Delivery O2 Flow Rate FiO2 06/28/18 13:33 98.5 06/28/18 12:00 76 20 138/84 (102) 98 06/28/18 09:00 Nasal Cannula 4.0 06/27/18 19:18 28 Intake and Output 06/27/18 06/28/18 19:00 07:00 Intake Total 150 ml 120 ml Output Total 400 ml Balance 150 ml -280 ml Intake Oral 150 ml 120 ml Output Urine Total 400 ml # Bowel Movements 1 Objective General: No acute distress, awake and alert HEENT: NCAT, sclera anicteric, PERRL, EOMI. Neck: Supple, no significant jugular venous distention, Lungs: Good inspiratory effort, no Wheeze or Rales. Heart: Regular rate and rhythm, normal S1/S2, no murmurs. Abdomen: soft, less tenderness, nondistended. Normoactive bowel sounds.. Extremities: No Cyanosis , clubbing or edema. Neuro: A&O x 3, Able to move all extremities Skin: warm, no rash Psych: Normal mood and affect Assessment/Plan Assessment/Plan 1. Abdominal pain, nausea and vomiting most likely secondary to small bowel obstruction. 2. COPD. 3. Congestive heart failure. 4. Sick sinus syndrome status post pacemaker. 5. Hypothyroidism. 6. Diabetes type 2. 7. Interstitial lung disease. 8. History of PE status post IVC filter. 9. History of acute kidney injury. 10.Hypoxemia. Plan: Continue on oxygen via nasal cannula. Considered placement at the SNF. PT mobility. CODE STATUS full code. DVT prophylaxis heparin subcu. Satinder Brewer MD Jun 28, 2018 16:22
--- NOTE | 2018-06-28 17:05 | Pulmonology Progress Note ---
Assessment/Plan Problems: (1) Small bowel obstruction (2) COPD (chronic obstructive pulmonary disease) (3) CHF (congestive heart failure) (4) Interstitial lung disease (5) Pacemaker (6) Hypothyroidism (7) Diabetes mellitus Assessment/Plan feeling better on clear liquied K supplelemetn titrate fio2 to sat of 92% check electrolytes respiratory treatment symptomatic treatment. Subjective ROS Limited/Unobtainable: No Allergies: Coded Allergies: ACETAMINOPHEN (Verified Allergy, Unknown, itching, 06/21/18) CODEINE (Verified Allergy, Unknown, 06/21/18) Uncoded Allergies: iodoform packing (Allergy, Unknown, redness, swelling, 06/21/18) Objective Last 24 Hour Vital Signs Date Time Temp Pulse Resp B/P (MAP) Pulse Ox O2 Delivery O2 Flow Rate FiO2 06/28/18 16:00 98.4 72 17 127/80 (96) 98 06/28/18 13:33 98.5 06/28/18 12:00 98.5 76 20 138/84 (102) 98 06/28/18 09:00 Nasal Cannula 4.0 06/28/18 08:00 97.5 74 19 139/85 (103) 97 06/28/18 05:51 98.0 06/28/18 04:15 98.0 73 18 108/62 (77) 99 06/28/18 00:00 97.4 73 18 119/67 (84) 100 06/27/18 22:18 Nasal Cannula 4.0 06/27/18 20:41 98.5 77 18 111/65 (80) 96 06/27/18 19:18 95 Nasal Cannula 2.0 28 06/27/18 19:18 Nasal Cannula 2.0 28 Intake and Output 06/27/18 06/28/18 19:00 07:00 Intake Total 150 ml 120 ml Output Total 400 ml Balance 150 ml -280 ml Intake Oral 150 ml 120 ml Output Urine Total 400 ml # Bowel Movements 1 General Appearance: WD/WN HEENT: normocephalic, atraumatic Respiratory/Chest: chest wall non-tender, lungs clear Breasts: no masses Cardiovascular: normal peripheral pulses Abdomen: normal bowel sounds, soft, non tender Genitourinary: normal external genitalia Skin: no rash Current Medications Medications (Trade) Dose Ordered Sig/Sandra Route PRN Reason Start Time Stop Time Status Last Admin Dose Admin Cefepime HCl 1 gm/ Dextrose 55 ml @ 110 mls/hr Q12HR@0000,1200 IVPB 06/27/18 00:00 07/04/18 00:00 06/28/18 13:05 Chlorhexidine Gluconate (Chioma-Hex 2%) 1 applic DAILY@2000 TOPIC 06/25/18 20:00 07/24/18 19:59 06/27/18 21:03 Cyclobenzaprine HCl (Flexeril) 10 mg Q8HR ORAL 06/25/18 14:00 07/19/18 21:59 06/28/18 13:03 Dextrose (Dextrose 50%) 25 ml Q30M PRN IV Hypoglycemia 06/25/18 13:45 07/23/18 15:44 Dextrose (Dextrose 50%) 50 ml Q30M PRN IV Hypoglycemia 06/25/18 13:45 07/23/18 15:44 Gabapentin (Neurontin) 400 mg THREE TIMES A DAY ORAL 06/25/18 18:00 07/20/18 08:59 06/28/18 17:02 Heparin Sodium (Porcine) (Heparin 5000 units/ml) 5,000 units EVERY 12 HOURS SUBQ 06/25/18 21:00 07/20/18 08:59 06/28/18 08:14 Levothyroxine Sodium (Synthroid) 100 mcg ACBREAKFAST ORAL 06/26/18 06:30 07/20/18 06:29 06/28/18 06:19 Pantoprazole (Protonix) 40 mg DAILY ORAL 06/26/18 09:00 07/26/18 08:59 06/28/18 08:13 Temazepam (Restoril) 15 mg HSPRN PRN ORAL Insomnia 06/25/18 21:00 06/28/18 20:59 Tramadol HCl (Ultram) 50 mg Q6H PRN ORAL Moderate pain(4-6) 06/25/18 18:19 07/02/18 18:18 06/28/18 05:21 Quincy Herrera MD Jun 28, 2018 17:04
--- NOTE | 2018-06-28 18:41 | Cardiology Progress Note ---
Assessment/Plan Assessment/Plan probably pulmonary fibrosis based on physicla examiantion, doubt cardiac component Subjective Subjective The patient is resting in bed, she still has cough, but feels better Objective Last 24 Hour Vital Signs Date Time Temp Pulse Resp B/P (MAP) Pulse Ox O2 Delivery O2 Flow Rate FiO2 06/28/18 16:00 98.4 72 17 127/80 (96) 98 06/28/18 13:33 98.5 06/28/18 12:00 98.5 76 20 138/84 (102) 98 06/28/18 09:00 Nasal Cannula 4.0 06/28/18 08:00 97.5 74 19 139/85 (103) 97 06/28/18 05:51 98.0 06/28/18 04:15 98.0 73 18 108/62 (77) 99 06/28/18 00:00 97.4 73 18 119/67 (84) 100 06/27/18 22:18 Nasal Cannula 4.0 06/27/18 20:41 98.5 77 18 111/65 (80) 96 06/27/18 19:18 95 Nasal Cannula 2.0 28 06/27/18 19:18 Nasal Cannula 2.0 28 General Appearance: mild distress EENT: PERRL/EOMI Neck: normal inspection, no JVD Rhythm: NSR Cardiovascular: normal rate Respiratory/Chest: crackles/rales - anterior, loud Abdomen: no mass Intake and Output 06/27/18 06/28/18 19:00 07:00 Intake Total 150 ml 120 ml Output Total 400 ml Balance 150 ml -280 ml Intake Oral 150 ml 120 ml Output Urine Total 400 ml # Bowel Movements 1 Lizeth Cavazos MD Jun 28, 2018 18:41
--- NOTE | 2018-06-28 19:39 | NUR ---
HAND-OFF: Report given to LEVI Burns.
--- NOTE | 2018-06-28 19:54 | NUR ---
NURSE NOTES: Patient in bed, awake, alert and verbally responsive. Able to make needs known. Respiration is even and unlabored. Kept clean and comfortable. No complaint of pain or discomfort noted at this time. Skin is warm and dry touch. Abdomen is soft. Noted with surgical dressing, intact, no s/s of infection noted. PICC line site noted. Driscoll catheter noted. Call light is at bedside. Bed in low and locked position. Provided safe environment.Will continue plan of care.
[2018-06-28 20:00] VITALS: BP 118/64
[2018-06-28] MEDS: Dyna-Hex 2% Top Sol 2oz TOPIC SCH (21:02)
[2018-06-29] VITALS: BP 114/61
[2018-06-29 04:00] VITALS: BP 116/64
[2018-06-29] MEDS: Cyclobenzaprine 10mg Tab ORAL SCH ×3 (05:41→21:21)
--- NOTE | 2018-06-29 07:05 | NUR ---
HAND-OFF: Report given to LEVI Neil.
--- NOTE | 2018-06-29 07:34 | NUR ---
NURSE NOTES: Patient alert x4, on nasal cannula at 4 liter, no sign of shortness of breath; no sign of chest pain; Driscoll in place drains well; PICC line on Right -Upper Hand flushes well; side rails up x2, breaks engaged, bed at lowest position; call light within reach; will keep monitoring.
[2018-06-29 08:00] VITALS: BP 100/62
[2018-06-29] MEDS: Heparin 5000 units/ml inj SUBQ SCH ×2 (08:34→21:23)
[2018-06-29] MEDS: traMADol 50mg tab ORAL PRN (10:16)
--- NOTE | 2018-06-29 10:35 | General Progress Note ---
Assessment/Plan Problem List: (1) S/P small bowel resection ICD Codes: Z90.49 - Acquired absence of other specified parts of digestive tract SNOMED: 28702789, 499601636, [id number] (2) Pacemaker ICD Codes: Z95.0 - Presence of cardiac pacemaker SNOMED: 011274926 (3) CHF (congestive heart failure) ICD Codes: I50.9 - Heart failure, unspecified SNOMED: 44056191 (4) Diabetes mellitus ICD Codes: E11.9 - Type 2 diabetes mellitus without complications SNOMED: 08528885 (5) COPD (chronic obstructive pulmonary disease) ICD Codes: J44.9 - Chronic obstructive pulmonary disease, unspecified SNOMED: 46604067 Assessment/Plan Assessment - SBO - s/p exlap - abd pain Recommendations -Diet per surgery, patient on regular diet - post op care - Surgical follow up - Follow exam -Pain management - ppi Subjective ROS Limited/Unobtainable: Yes Allergies: Coded Allergies: ACETAMINOPHEN (Verified Allergy, Unknown, itching, 06/21/18) CODEINE (Verified Allergy, Unknown, 06/21/18) Uncoded Allergies: iodoform packing (Allergy, Unknown, redness, swelling, 06/21/18) Objective Last 24 Hour Vital Signs Date Time Temp Pulse Resp B/P (MAP) Pulse Ox O2 Delivery O2 Flow Rate FiO2 06/29/18 09:00 Nasal Cannula 4.0 06/29/18 08:00 97.4 71 20 100/62 (75) 99 06/29/18 04:00 98.1 71 18 116/64 (81) 100 06/29/18 00:00 98.4 74 20 114/61 (78) 99 06/28/18 20:39 Nasal Cannula 4.0 06/28/18 20:00 98.4 75 20 118/64 (82) 99 06/28/18 16:00 98.4 72 17 127/80 (96) 98 06/28/18 13:33 98.5 06/28/18 12:00 98.5 76 20 138/84 (102) 98 Intake and Output 06/28/18 06/29/18 18:59 06:59 Intake Total 910 ml 2055 ml Output Total 750 ml 1500 ml Balance 160 ml 555 ml Intake Oral 2000 ml IV Total 110 ml 55 ml Other 800 ml Output Urine Total 750 ml 1500 ml Height (Feet): 5 Height (Inches): 3.00 Weight (Pounds): 135 General Appearance: alert EENT: normal ENT inspection Neck: supple Cardiovascular: normal rate Respiratory/Chest: decreased breath sounds Abdomen: normal bowel sounds, non tender, soft Extremities: non-tender Olivier Mesa MD Jun 29, 2018 10:35
--- NOTE | 2018-06-29 11:54 | Internal Med Progress Note ---
Subjective Physician Name Satinder Brewer Attending Physician Satinder Brewer MD Current Medications Medications (Trade) Dose Ordered Sig/Sandra Route PRN Reason Start Time Stop Time Status Last Admin Dose Admin Cefepime HCl 1 gm/ Dextrose 55 ml @ 110 mls/hr Q12HR@0000,1200 IVPB 06/27/18 00:00 07/04/18 00:00 06/28/18 23:05 Chlorhexidine Gluconate (Chioma-Hex 2%) 1 applic DAILY@2000 TOPIC 06/25/18 20:00 07/24/18 19:59 06/28/18 21:02 Cyclobenzaprine HCl (Flexeril) 10 mg Q8HR ORAL 06/25/18 14:00 07/19/18 21:59 06/29/18 05:41 Dextrose (Dextrose 50%) 25 ml Q30M PRN IV Hypoglycemia 06/25/18 13:45 07/23/18 15:44 Dextrose (Dextrose 50%) 50 ml Q30M PRN IV Hypoglycemia 06/25/18 13:45 07/23/18 15:44 Gabapentin (Neurontin) 400 mg THREE TIMES A DAY ORAL 06/25/18 18:00 07/20/18 08:59 06/29/18 08:33 Heparin Sodium (Porcine) (Heparin 5000 units/ml) 5,000 units EVERY 12 HOURS SUBQ 06/25/18 21:00 07/20/18 08:59 06/29/18 08:34 Levothyroxine Sodium (Synthroid) 100 mcg ACBREAKFAST ORAL 06/26/18 06:30 07/20/18 06:29 06/29/18 05:41 Pantoprazole (Protonix) 40 mg DAILY ORAL 06/26/18 09:00 07/26/18 08:59 06/29/18 08:33 Tramadol HCl (Ultram) 50 mg Q6H PRN ORAL Moderate pain(4-6) 06/25/18 18:19 07/02/18 18:18 06/29/18 10:16 Allergies: Coded Allergies: ACETAMINOPHEN (Verified Allergy, Unknown, itching, 06/21/18) CODEINE (Verified Allergy, Unknown, 06/21/18) Uncoded Allergies: iodoform packing (Allergy, Unknown, redness, swelling, 06/21/18) Subjective Awake, alert, responsive, on nasal cannula. Objective Last Vital Signs Date Time Temp Pulse Resp B/P (MAP) Pulse Ox O2 Delivery O2 Flow Rate FiO2 06/29/18 10:59 97.4 06/29/18 09:00 Nasal Cannula 4.0 06/29/18 08:00 71 20 100/62 (75) 99 06/27/18 19:18 28 Intake and Output 06/28/18 06/29/18 18:59 06:59 Intake Total 910 ml 2055 ml Output Total 750 ml 1500 ml Balance 160 ml 555 ml Intake Oral 2000 ml IV Total 110 ml 55 ml Other 800 ml Output Urine Total 750 ml 1500 ml Objective General: No acute distress, awake and alert HEENT: NCAT, sclera anicteric, PERRL, EOMI. Neck: Supple, no significant jugular venous distention, Lungs: Good inspiratory effort, no Wheeze or Rales. Heart: Regular rate and rhythm, normal S1/S2, no murmurs. Abdomen: soft, less tenderness, nondistended. Normoactive bowel sounds, Midline surgery incision intact dressing. Extremities: No Cyanosis , clubbing or edema. Neuro: A&O x 3, Able to move all extremities Skin: warm, no rash Psych: Normal mood and affect Assessment/Plan Assessment/Plan 1. Abdominal pain, nausea and vomiting most likely secondary to small bowel obstruction. 2. COPD. 3. Congestive heart failure. 4. Sick sinus syndrome status post pacemaker. 5. Hypothyroidism. 6. Diabetes type 2. 7. Interstitial lung disease. 8. History of PE status post IVC filter. 9. History of acute kidney injury. 10.Hypoxemia. Plan: Continue on oxygen via nasal cannula. Considered placement at the SNF. PT mobility. CODE STATUS full code. DVT prophylaxis heparin subcu. Satinder Brewer MD Jun 29, 2018 11:54
[2018-06-29 12:00] VITALS: BP 119/58
[2018-06-29] MEDS: Cefepime HCl 1 GM in D5W 55 ML IVPB SCH ×2 (13:30→23:16)
--- NOTE | 2018-06-29 14:20 | Cardiology Progress Note ---
Assessment/Plan Assessment/Plan probably pulmonary fibrosis based on physicla examiantion, doubt cardiac component Subjective Subjective The patient is resting in bed, she still has cough, no changes Objective Last 24 Hour Vital Signs Date Time Temp Pulse Resp B/P (MAP) Pulse Ox O2 Delivery O2 Flow Rate FiO2 06/29/18 12:00 97.1 74 20 119/58 (78) 98 06/29/18 10:59 97.4 06/29/18 09:00 Nasal Cannula 4.0 06/29/18 08:00 97.4 71 20 100/62 (75) 99 06/29/18 04:00 98.1 71 18 116/64 (81) 100 06/29/18 00:00 98.4 74 20 114/61 (78) 99 06/28/18 20:39 Nasal Cannula 4.0 06/28/18 20:00 98.4 75 20 118/64 (82) 99 06/28/18 16:00 98.4 72 17 127/80 (96) 98 General Appearance: alert EENT: PERRL/EOMI Neck: no JVD Rhythm: NSR Cardiovascular: normal rate Respiratory/Chest: crackles/rales - loud anterior crackles Abdomen: no organomegaly, no mass Extremities: normal capillary refill Intake and Output 06/28/18 06/29/18 18:59 06:59 Intake Total 910 ml 2055 ml Output Total 750 ml 1500 ml Balance 160 ml 555 ml Intake Oral 2000 ml IV Total 110 ml 55 ml Other 800 ml Output Urine Total 750 ml 1500 ml Lizeth Cavazos MD Jun 29, 2018 14:20
[2018-06-29 16:00] VITALS: BP 109/82
--- NOTE | 2018-06-29 19:11 | NUR ---
HAND-OFF: Report given to LEVI Burns.
[2018-06-29 20:00] VITALS: BP 108/57
--- NOTE | 2018-06-29 20:10 | NUR ---
NURSE NOTES: Patient in bed, awake, alert and verbally responsive. Able to make needs known. Respiration is even and unlabored, on nasal cannula. Noted with PIcc line on the right upper arm. Driscoll catheter is patent. Skin is warm and dry to touch. Lower back dressing noted, intact. Kept clean and comfortable. Bed in low and locked position. Provided safe environment. Call light is at bedside. Will continue plan of care.
[2018-06-29] MEDS: Dyna-Hex 2% Top Sol 2oz TOPIC SCH (21:21)
[2018-06-30] VITALS: BP 157/68
[2018-06-30 04:00] VITALS: BP 109/60
[2018-06-30] MEDS: Cyclobenzaprine 10mg Tab ORAL SCH ×3 (05:51→21:50)
[2018-06-30 06:39] LABS: ALANINE AMINOTRANSFERASE 10 U/L (12-78); ALBUMIN 1.8 G/DL (3.4-5.0); ALBUMIN/GLOBULIN RATIO 0.5 (1.0-2.7); ALKALINE PHOSPHATASE 85 U/L (46-116); ANION GAP 1 mmol/L (5-15); ASPARTATE AMINO TRANSFERASE 11 U/L (15-37); BILIRUBIN,TOTAL 0.2 MG/DL (0.2-1.0); BLOOD UREA NITROGEN 7 mg/dL (7-18); CALCIUM 8.1 MG/DL (8.5-10.1); CARBON DIOXIDE 36 MMOL/L (21-32); CHLORIDE 106 MMOL/L (98-107); CREATININE 0.6 MG/DL (0.55-1.30); PHOSPHORUS 3.4 MG/DL (2.5-4.9); POTASSIUM 3.6 MMOL/L (3.5-5.1); SODIUM 143 MMOL/L (136-145)
[2018-06-30 08:00] VITALS: BP 109/56
--- NOTE | 2018-06-30 08:01 | NUR ---
NURSE NOTES: Patient is awake and alert,02 on at 3L N/C, respirations unlabored,Driscoll catheter noted and draining yellow urine.Abdominal dressing noted clean and intact,bed alarm is on,call light within reach.
[2018-06-30] MEDS: Heparin 5000 units/ml inj SUBQ SCH ×2 (08:42→21:52)
--- NOTE | 2018-06-30 09:15 | Internal Med Progress Note ---
Subjective Physician Name Satinder Brewer Attending Physician Satinder Brewer MD Current Medications Medications (Trade) Dose Ordered Sig/Sandra Route PRN Reason Start Time Stop Time Status Last Admin Dose Admin Cefepime HCl 1 gm/ Dextrose 55 ml @ 110 mls/hr Q12HR@0000,1200 IVPB 06/27/18 00:00 07/04/18 00:00 06/29/18 23:16 Chlorhexidine Gluconate (Chioma-Hex 2%) 1 applic DAILY@2000 TOPIC 06/25/18 20:00 07/24/18 19:59 06/29/18 21:21 Cyclobenzaprine HCl (Flexeril) 10 mg Q8HR ORAL 06/25/18 14:00 07/19/18 21:59 06/30/18 05:51 Dextrose (Dextrose 50%) 25 ml Q30M PRN IV Hypoglycemia 06/25/18 13:45 07/23/18 15:44 Dextrose (Dextrose 50%) 50 ml Q30M PRN IV Hypoglycemia 06/25/18 13:45 07/23/18 15:44 Gabapentin (Neurontin) 400 mg THREE TIMES A DAY ORAL 06/25/18 18:00 07/20/18 08:59 06/30/18 08:41 Heparin Sodium (Porcine) (Heparin 5000 units/ml) 5,000 units EVERY 12 HOURS SUBQ 06/25/18 21:00 07/20/18 08:59 06/30/18 08:42 Levothyroxine Sodium (Synthroid) 100 mcg ACBREAKFAST ORAL 06/26/18 06:30 07/20/18 06:29 06/30/18 05:50 Pantoprazole (Protonix) 40 mg DAILY ORAL 06/26/18 09:00 07/26/18 08:59 06/30/18 08:41 Tramadol HCl (Ultram) 50 mg Q6H PRN ORAL Moderate pain(4-6) 06/25/18 18:19 07/02/18 18:18 06/29/18 10:16 Allergies: Coded Allergies: ACETAMINOPHEN (Verified Allergy, Unknown, itching, 06/21/18) CODEINE (Verified Allergy, Unknown, 06/21/18) Uncoded Allergies: iodoform packing (Allergy, Unknown, redness, swelling, 06/21/18) Subjective Awake, alert, responsive, on nasal cannula. Objective Last Vital Signs Date Time Temp Pulse Resp B/P (MAP) Pulse Ox O2 Delivery O2 Flow Rate FiO2 06/30/18 08:00 97.4 76 17 109/56 (73) 99 06/29/18 21:00 Nasal Cannula 4.0 06/29/18 20:02 28 Laboratory Tests Test 06/30/18 05:10 Sodium Level 143 MMOL/L (136-145) Potassium Level 3.6 MMOL/L (3.5-5.1) Chloride Level 106 MMOL/L (98-107) Carbon Dioxide Level 36 MMOL/L (21-32) H Anion Gap 1 mmol/L (5-15) L Blood Urea Nitrogen 7 mg/dL (7-18) Creatinine 0.6 MG/DL (0.55-1.30) Estimat Glomerular Filtration Rate > 60 mL/min (>60) Glucose Level 91 MG/DL (74-106) Calcium Level 8.1 MG/DL (8.5-10.1) L Phosphorus Level 3.4 MG/DL (2.5-4.9) Magnesium Level 1.8 MG/DL (1.8-2.4) Total Bilirubin 0.2 MG/DL (0.2-1.0) Aspartate Amino Transf (AST/SGOT) 11 U/L (15-37) L Alanine Aminotransferase (ALT/SGPT) 10 U/L (12-78) L Alkaline Phosphatase 85 U/L (46-116) Total Protein 5.3 G/DL (6.4-8.2) L Albumin 1.8 G/DL (3.4-5.0) L Globulin 3.5 g/dL Albumin/Globulin Ratio 0.5 (1.0-2.7) L Intake and Output 06/29/18 06/30/18 19:00 07:00 Intake Total 955 ml 55 ml Output Total 400 ml Balance 555 ml 55 ml IV Total 55 ml 55 ml Other 900 ml Output Urine Total 400 ml # Voids 20 Objective General: No acute distress, awake and alert HEENT: NCAT, sclera anicteric, PERRL, EOMI. Neck: Supple, no significant jugular venous distention, Lungs: Good inspiratory effort, no Wheeze or Rales. Heart: Regular rate and rhythm, normal S1/S2, no murmurs. Abdomen: soft, less tenderness, nondistended. Normoactive bowel sounds, Midline surgery incision intact dressing. Extremities: No Cyanosis , clubbing or edema. Neuro: A&O x 3, Able to move all extremities Skin: warm, no rash Psych: Normal mood and affect Assessment/Plan Assessment/Plan 1. Abdominal pain, nausea and vomiting most likely secondary to small bowel obstruction. 2. COPD. 3. Congestive heart failure. 4. Sick sinus syndrome status post pacemaker. 5. Hypothyroidism. 6. Diabetes type 2. 7. Interstitial lung disease. 8. History of PE status post IVC filter. 9. History of acute kidney injury. 10.Hypoxemia. Plan: Continue on oxygen via nasal cannula. PT mobility. CODE STATUS full code. DVT prophylaxis heparin subcu. Waiting for SNF placement. Satinder Brewer MD Jun 30, 2018 09:15
--- NOTE | 2018-06-30 09:34 | NUR ---
Social Service Note Spoke with David [phone] complex SW from patient's health plan regarding impending dc planning to SNF. Patient continues to require O2 and assistance with transfers. Patient unable to return to independent living at this time. Will continue to monitor.
--- NOTE | 2018-06-30 10:08 | Infectious Diseases Prog Note ---
Assessment/Plan Assessment/Plan 68 yo female with complicated PMHx who presented to the ED on 06/19/18 with N/V and progressive abdominal pain. HAP Positive sputum 06/21/18 - P.a. Acinetobacter, K. pneumo and NF - All sen to levo and Cefepime CXR 06/23/18 - Bilateral diffuse interstitial and airspace disease, stable or slightly worse compared to previous study of one day earlier Leukocytosis - resolved No fevers SBO S/p lysis of adhesions and small-bowel resection with primary anastomosis on PLAN - Continue Cefepime #6/7 for HAP - 06/23/18 SP - Zosyn #2 - f/u Repeat CXR - read pending - Monitor CBC and Temps We will continue to follow the patient during this hospitalization. Subjective Allergies: Coded Allergies: ACETAMINOPHEN (Verified Allergy, Unknown, itching, 06/21/18) CODEINE (Verified Allergy, Unknown, 06/21/18) Uncoded Allergies: iodoform packing (Allergy, Unknown, redness, swelling, 06/21/18) Subjective Afebrile No Leukocytosis Objective Vital Signs Last 24 Hour Vital Signs Date Time Temp Pulse Resp B/P (MAP) Pulse Ox O2 Delivery O2 Flow Rate FiO2 06/30/18 08:00 97.4 76 17 109/56 (73) 99 06/30/18 04:00 97.1 71 18 109/60 (76) 100 06/30/18 00:00 98.8 99 20 157/68 (97) 96 06/29/18 21:00 Nasal Cannula 4.0 06/29/18 20:02 Nasal Cannula 2.0 28 06/29/18 20:02 96 Nasal Cannula 2.0 28 06/29/18 20:00 98.3 74 18 108/57 (74) 99 06/29/18 16:00 97.5 70 18 109/82 (91) 100 06/29/18 13:59 97.1 06/29/18 12:00 97.1 74 20 119/58 (78) 98 06/29/18 10:59 97.4 Height (Feet): 5 Height (Inches): 3.00 Weight (Pounds): 135 Objective Gen: NAD, On 4L NC and satting well HEENT: NCAT, MMM, EOMI LUNGS: Course B/L , No W CARDS: RRR, S1, S2, No M/R/G, ABD: Soft, NT, ND, + BS NEURO: A/O x 2, Strength and Sensation Grossly intact Laboratory Tests Test 06/30/18 05:10 Sodium Level 143 MMOL/L (136-145) Potassium Level 3.6 MMOL/L (3.5-5.1) Chloride Level 106 MMOL/L (98-107) Carbon Dioxide Level 36 MMOL/L (21-32) H Anion Gap 1 mmol/L (5-15) L Blood Urea Nitrogen 7 mg/dL (7-18) Creatinine 0.6 MG/DL (0.55-1.30) Estimat Glomerular Filtration Rate > 60 mL/min (>60) Glucose Level 91 MG/DL (74-106) Calcium Level 8.1 MG/DL (8.5-10.1) L Phosphorus Level 3.4 MG/DL (2.5-4.9) Magnesium Level 1.8 MG/DL (1.8-2.4) Total Bilirubin 0.2 MG/DL (0.2-1.0) Aspartate Amino Transf (AST/SGOT) 11 U/L (15-37) L Alanine Aminotransferase (ALT/SGPT) 10 U/L (12-78) L Alkaline Phosphatase 85 U/L (46-116) Total Protein 5.3 G/DL (6.4-8.2) L Albumin 1.8 G/DL (3.4-5.0) L Globulin 3.5 g/dL Albumin/Globulin Ratio 0.5 (1.0-2.7) L Current Medications Medications (Trade) Dose Ordered Sig/Sandra Route PRN Reason Start Time Stop Time Status Last Admin Dose Admin Cefepime HCl 1 gm/ Dextrose 55 ml @ 110 mls/hr Q12HR@0000,1200 IVPB 06/27/18 00:00 07/04/18 00:00 06/29/18 23:16 Chlorhexidine Gluconate (Chioma-Hex 2%) 1 applic DAILY@2000 TOPIC 06/25/18 20:00 07/24/18 19:59 06/29/18 21:21 Cyclobenzaprine HCl (Flexeril) 10 mg Q8HR ORAL 06/25/18 14:00 07/19/18 21:59 06/30/18 05:51 Dextrose (Dextrose 50%) 25 ml Q30M PRN IV Hypoglycemia 06/25/18 13:45 07/23/18 15:44 Dextrose (Dextrose 50%) 50 ml Q30M PRN IV Hypoglycemia 06/25/18 13:45 07/23/18 15:44 Gabapentin (Neurontin) 400 mg THREE TIMES A DAY ORAL 06/25/18 18:00 07/20/18 08:59 06/30/18 08:41 Heparin Sodium (Porcine) (Heparin 5000 units/ml) 5,000 units EVERY 12 HOURS SUBQ 06/25/18 21:00 07/20/18 08:59 06/30/18 08:42 Levothyroxine Sodium (Synthroid) 100 mcg ACBREAKFAST ORAL 06/26/18 06:30 07/20/18 06:29 06/30/18 05:50 Pantoprazole (Protonix) 40 mg DAILY ORAL 06/26/18 09:00 07/26/18 08:59 06/30/18 08:41 Tramadol HCl (Ultram) 50 mg Q6H PRN ORAL Moderate pain(4-6) 06/25/18 18:19 07/02/18 18:18 06/29/18 10:16 Popeye Bailey MD Jun 30, 2018 10:08
--- NOTE | 2018-06-30 10:37 | GI Progress Note ---
Assessment/Plan Problems: (1) S/P small bowel resection ICD Codes: Z90.49 - Acquired absence of other specified parts of digestive tract SNOMED: 43354832, 224915532, [id number] (2) Abdominal pain ICD Codes: R10.9 - Unspecified abdominal pain SNOMED: 92459448 (3) Hypothyroidism ICD Codes: E03.9 - Hypothyroidism, unspecified SNOMED: 62127114 (4) Chronic pain ICD Codes: G89.29 - Other chronic pain SNOMED: 11079193 (5) Diabetes mellitus ICD Codes: E11.9 - Type 2 diabetes mellitus without complications SNOMED: 78780622 Status: stable Status Narrative Discussed with Dr. Mesa. Assessment/Plan Assessment - SBO - s/p exlap - abd pain Recommendations -Diet per surgery, regular diet - post op care - Surgical follow up - IVF - Follow exam -Pain management - ppi The patient was seen and examined at bedside and all new and available data was reviewed in the patients chart. I agree with the above findings, impression and plan. (Patient seen earlier today. Signature stamp does not reflect patient encounter time.). - Olivier Mesa MD Subjective Subjective Abdominal pain improved Request texture in diet to be changed Objective Last 24 Hour Vital Signs Date Time Temp Pulse Resp B/P (MAP) Pulse Ox O2 Delivery O2 Flow Rate FiO2 06/30/18 08:00 97.4 76 17 109/56 (73) 99 06/30/18 04:00 97.1 71 18 109/60 (76) 100 06/30/18 00:00 98.8 99 20 157/68 (97) 96 06/29/18 21:00 Nasal Cannula 4.0 06/29/18 20:02 Nasal Cannula 2.0 28 06/29/18 20:02 96 Nasal Cannula 2.0 28 06/29/18 20:00 98.3 74 18 108/57 (74) 99 06/29/18 16:00 97.5 70 18 109/82 (91) 100 06/29/18 13:59 97.1 06/29/18 12:00 97.1 74 20 119/58 (78) 98 06/29/18 10:59 97.4 Intake and Output 06/29/18 06/30/18 18:59 06:59 Intake Total 955 ml 55 ml Output Total 400 ml Balance 555 ml 55 ml IV Total 55 ml 55 ml Other 900 ml Output Urine Total 400 ml # Voids 20 Laboratory Tests Test 06/30/18 05:10 Sodium Level 143 MMOL/L (136-145) Potassium Level 3.6 MMOL/L (3.5-5.1) Chloride Level 106 MMOL/L (98-107) Carbon Dioxide Level 36 MMOL/L (21-32) H Anion Gap 1 mmol/L (5-15) L Blood Urea Nitrogen 7 mg/dL (7-18) Creatinine 0.6 MG/DL (0.55-1.30) Estimat Glomerular Filtration Rate > 60 mL/min (>60) Glucose Level 91 MG/DL (74-106) Calcium Level 8.1 MG/DL (8.5-10.1) L Phosphorus Level 3.4 MG/DL (2.5-4.9) Magnesium Level 1.8 MG/DL (1.8-2.4) Total Bilirubin 0.2 MG/DL (0.2-1.0) Aspartate Amino Transf (AST/SGOT) 11 U/L (15-37) L Alanine Aminotransferase (ALT/SGPT) 10 U/L (12-78) L Alkaline Phosphatase 85 U/L (46-116) Total Protein 5.3 G/DL (6.4-8.2) L Albumin 1.8 G/DL (3.4-5.0) L Globulin 3.5 g/dL Albumin/Globulin Ratio 0.5 (1.0-2.7) L Height (Feet): 5 Height (Inches): 3.00 Weight (Pounds): 135 General Appearance: WD/WN, no apparent distress, alert Cardiovascular: normal rate Respiratory/Chest: normal breath sounds, no respiratory distress Abdominal Exam: normal bowel sounds, non tender, soft Extremities: normal range of motion, non-tender Shelby Rboerson NP Jun 30, 2018 10:37
--- NOTE | 2018-06-30 10:40 | NUR ---
DISCHARGE PLANNING CLINICALS WERE FAXED ON SATURDAY TO [facility] SPOKE WITH SARITHA THIS MORNING. SARITHA SAID SHE WOULD HAVE BLOSSOM GET BACK TO THIS [facility] REGARDING ACCEPTANCE
--- NOTE | 2018-06-30 11:11 | NUR ---
RD ASSESSMENT & RECOMMENDATIONS SEE CARE ACTIVITY FOR COMPLETE ASSESSMENT DAILY ESTIMATED NEEDS: Needs based on Surgery 58.6kg 25-30 kcals/kg 5499-6317 total kcals 1-2 g protein/kg 59-118 g total protein 25-30 mL/kg 1210-3451 total fluid mLs NUTRITION DIAGNOSIS: 1) Altered GI fxn r/t SBO as evidenced by s/p ex lap w/ bowel resection and lysis of adhesions, diet now advanced to regular, soft easy chew. CURRENT DIET:Regular ms ground -> Regular soft easy chew PO DIET RECOMMENDATIONS: Rec SOFT/ LOW FIBER DIET / texture as tolerated ADDITIONAL RECOMMENDATIONS: 1) CALIBRATED BEDSCALE WTS 2) Diet per surgery, s/p ex lap of bowel resection 3) Monitor lytes, replete as needed 4) Monitor BGs closely, h/o DM 5) Ensure Enlive BID w/ poor PO 6) WC eval for sacral wound. -> Rec add MVI x 1 + Isaak 1pkt BID
[2018-06-30 12:00] VITALS: BP 116/60
[2018-06-30] MEDS: Cefepime HCl 1 GM in D5W 55 ML IVPB SCH (13:20)
--- NOTE | 2018-06-30 14:25 | NUR ---
CASE MANAGEMENT:REVIEW 06/27/18 SI: SBO. POD #6 S/P LYSIS OF ADHESIONS,SBO RESECTION/ANASTOMOSIS 98.0 99 18 152/95 95% ON 2L/NC H/H-10.0/32.3 IS:IV CEFEPIME Q12 PROTONIX PO QD SYNTHROID PO QAM HEPARIN SQ Q12 NOW ON MED/SURG [facility] DCP: PATIENT IS FROM HOME 06/28/18 SI: SBO. POD #7 S/P LYSIS OF ADHESIONS,SBO RESECTION/ANASTOMOSIS 98.4 72 17 127/80 98% ON 4L/NC IS:IV CEFEPIME Q12 PROTONIX PO QD SYNTHROID PO QAM HEPARIN SQ Q12 NOW ON MED/SURG [facility] DCP: PATIENT IS FROM HOME 06/29/18 SI: SBO. POD #8 S/P LYSIS OF ADHESIONS,SBO RESECTION/ANASTOMOSIS 97.4 71 20 100/62 99% ON 4L/NC IS:IV CEFEPIME Q12 PROTONIX PO QD SYNTHROID PO QAM HEPARIN SQ Q12 NOW ON MED/SURG [facility] DCP: PATIENT IS FROM HOME 06/30/18 SI: SBO. POD #9 S/P LYSIS OF ADHESIONS,SBO RESECTION/ANASTOMOSIS 97.2 90 18 116/60 98% ON 4L/NC IS:IV CEFEPIME Q12 PROTONIX PO QD SYNTHROID PO QAM HEPARIN SQ Q12 NOW ON MED/SURG [facility] DCP: PATIENT IS FROM HOME
--- NOTE | 2018-06-30 14:33 | NUR ---
DISCHARGE PLANNING REFERRED TO [facility] ~ THEY CANNOT ACCEPT REFERRED TO [facility] ~ NO FEMALE BEDS RE[facility]ERRED TO [facility] ~ THEY ARE REVIEWING THE CASE Addendum: 06/30/18 at 1509 by MELISSA BUI LVN LVN [facility] HAS ACCEPTED PATIENT. THEY ARE WAITING TO RECEIVE AUTHORIZATION FROM [employer]
[2018-06-30 16:00] VITALS: BP 125/61
--- NOTE | 2018-06-30 18:40 | NUR ---
NURSE NOTES: Patient is resting,watching TV,respirations are unlabored.Noted bruising in Am around picc line site,no bleeding noted,no complaint of pain. Abdominal dressing remains clean and intact.Driscoll continue to drain clear light yellow urine.Call light within reach,bed alarm is on.
--- NOTE | 2018-06-30 19:30 | NUR ---
NURSE NOTES: Received patient in bed, resting, side rails padded for seizure precaution. Patient displayed no s/s of distress. Dressing on her abdomen is dry and intact. No complaint of pain at the moment. Bed is at the lowest position, bed alarms active, side rails up x2, yellow socks implemented, call light within reach. Will continue to monitor.
--- NOTE | 2018-06-30 19:35 | NUR ---
HAND-OFF: Report given to STEVIE SIMS.
[2018-06-30 20:00] VITALS: BP 134/60
[2018-06-30] MEDS: Dyna-Hex 2% Top Sol 2oz TOPIC SCH (21:53)
[2018-07-01] VITALS: BP 124/71
[2018-07-01] MEDS: Cefepime HCl 1 GM in D5W 55 ML IVPB SCH ×3 (00:51→23:26)
[2018-07-01 04:35] VITALS: BP 120/67
[2018-07-01] MEDS: Cyclobenzaprine 10mg Tab ORAL SCH ×3 (05:41→21:46)
[2018-07-01 05:57] LABS: BASOPHILS % (AUTO) 1.4 % (0.0-2.0); EOSINOPHILS % (AUTO) 3.5 % (0.0-3.0); HEMATOCRIT 34.5 % (37.0-47.0); HEMOGLOBIN 10.7 G/DL (12.0-16.0); LYMPHOCYTES % (AUTO) 18.8 % (20.0-45.0); MEAN CORPUSCULAR VOLUME 88 FL (80-99); NEUTROPHILS % (AUTO) 70.4 % (45.0-75.0); PLATELET COUNT 415 K/UL (150-450); RED BLOOD COUNT 3.91 M/UL (4.20-5.40); WHITE BLOOD COUNT 9.9 K/UL (4.8-10.8)
[2018-07-01 06:09] LABS: ANION GAP 5 mmol/L (5-15); BLOOD UREA NITROGEN 8 mg/dL (7-18); CALCIUM 8.4 MG/DL (8.5-10.1); CARBON DIOXIDE 34 MMOL/L (21-32); CHLORIDE 104 MMOL/L (98-107); CREATININE 0.6 MG/DL (0.55-1.30); POTASSIUM 3.9 MMOL/L (3.5-5.1); SODIUM 142 MMOL/L (136-145)
--- NOTE | 2018-07-01 07:44 | NUR ---
HAND-OFF: Report given to LEVI Quintanilla.
[2018-07-01 08:00] VITALS: BP 121/65
--- NOTE | 2018-07-01 08:00 | NUR ---
NURSE NOTES: Patient is awake and alert,respirations unlabored, 02 on at 2L N/ C .No complaints of pain at this time,patient abdominal dressing is clean dry and intact.Driscoll catheter remains in place and draining clear yellow urine.Picc line dressing clean intact.Call light within reach,bed alarm is on.
[2018-07-01] MEDS: Heparin 5000 units/ml inj SUBQ SCH ×2 (10:25→20:19)
--- NOTE | 2018-07-01 10:35 | NUR ---
HAND-OFF: Report given to Rehana SIMS. Addendum: 07/01/18 at 2010 by GEMA BUNCH RN RN hand off given at 1934 to Rehana SIMS
--- NOTE | 2018-07-01 10:56 | GI Progress Note ---
Assessment/Plan Problems: (1) S/P small bowel resection ICD Codes: Z90.49 - Acquired absence of other specified parts of digestive tract SNOMED: 75730585, 506314082, [id number] (2) Abdominal pain ICD Codes: R10.9 - Unspecified abdominal pain SNOMED: 61099034 (3) Hypothyroidism ICD Codes: E03.9 - Hypothyroidism, unspecified SNOMED: 33590161 (4) Chronic pain ICD Codes: G89.29 - Other chronic pain SNOMED: 52707254 (5) Diabetes mellitus ICD Codes: E11.9 - Type 2 diabetes mellitus without complications SNOMED: 16976294 Status: doing well, stable Status Narrative Discussed with Dr. Mesa. Assessment/Plan Assessment - SBO - s/p exlap - abd pain Recommendations - Diet per surgery, regular diet - post op care - Surgical follow up - IVF - Follow exam -Pain management - ppi The patient was seen and examined at bedside and all new and available data was reviewed in the patients chart. I agree with the above findings, impression and plan. (Patient seen earlier today. Signature stamp does not reflect patient encounter time.). - Olivier Mesa MD Subjective Subjective Abdominal pain improved Request texture in diet to be changed Objective Last 24 Hour Vital Signs Date Time Temp Pulse Resp B/P (MAP) Pulse Ox O2 Delivery O2 Flow Rate FiO2 07/01/18 08:00 97.9 76 18 121/65 (83) 76 07/01/18 07:06 97 Nasal Cannula 2.0 28 07/01/18 07:06 Nasal Cannula 2.0 28 07/01/18 04:35 97.2 64 20 120/67 (84) 99 64 07/01/18 00:00 97.9 78 20 124/71 (88) 100 06/30/18 21:00 Nasal Cannula 4.0 06/30/18 20:00 97.7 88 19 134/60 (84) 98 06/30/18 16:00 98.0 76 18 125/61 (82) 98 06/30/18 12:00 97.2 90 18 116/60 (78) 98 Intake and Output 06/30/18 07/01/18 19:00 07:00 Intake Total 720 ml 55 ml Output Total 1700 ml 1200 ml Balance -980 ml -1145 ml Intake Oral 720 ml IV Total 55 ml Output Urine Total 1700 ml 1200 ml Laboratory Tests Test 07/01/18 05:30 White Blood Count 9.9 K/UL (4.8-10.8) Red Blood Count 3.91 M/UL (4.20-5.40) L Hemoglobin 10.7 G/DL (12.0-16.0) L Hematocrit 34.5 % (37.0-47.0) L Mean Corpuscular Volume 88 FL (80-99) Mean Corpuscular Hemoglobin 27.3 PG (27.0-31.0) Mean Corpuscular Hemoglobin Concent 31.0 G/DL (32.0-36.0) L Red Cell Distribution Width 15.0 % (11.6-14.8) H Platelet Count 415 K/UL (150-450) Mean Platelet Volume 6.2 FL (6.5-10.1) L Neutrophils (%) (Auto) 70.4 % (45.0-75.0) Lymphocytes (%) (Auto) 18.8 % (20.0-45.0) L Monocytes (%) (Auto) 6.0 % (1.0-10.0) Eosinophils (%) (Auto) 3.5 % (0.0-3.0) H Basophils (%) (Auto) 1.4 % (0.0-2.0) Sodium Level 142 MMOL/L (136-145) Potassium Level 3.9 MMOL/L (3.5-5.1) Chloride Level 104 MMOL/L (98-107) Carbon Dioxide Level 34 MMOL/L (21-32) H Anion Gap 5 mmol/L (5-15) Blood Urea Nitrogen 8 mg/dL (7-18) Creatinine 0.6 MG/DL (0.55-1.30) Estimat Glomerular Filtration Rate > 60 mL/min (>60) Glucose Level 76 MG/DL (74-106) Calcium Level 8.4 MG/DL (8.5-10.1) L Height (Feet): 5 Height (Inches): 3.00 Weight (Pounds): 135 General Appearance: WD/WN, no apparent distress, alert Cardiovascular: normal rate Respiratory/Chest: normal breath sounds, no respiratory distress Abdominal Exam: normal bowel sounds, non tender, soft Extremities: normal range of motion, non-tender Roberson,Shruti-Obi SKIVER HAND Jul 01, 2018 10:56
[2018-07-01 12:00] VITALS: BP 127/74
--- NOTE | 2018-07-01 13:14 | Infectious Diseases Prog Note ---
Assessment/Plan Assessment/Plan 68 yo female with complicated PMHx who presented to the ED on 06/19/18 with N/V and progressive abdominal pain. HAP Positive sputum 06/21/18 - P.a. Acinetobacter, K. pneumo and NF - All sen to levo and Cefepime CXR 06/23/18 - Bilateral diffuse interstitial and airspace disease, stable or slightly worse compared to previous study of one day earlier Leukocytosis - resolved No fevers Pyuria/ bacteriuria -wbc 5-10; ucx Kpna (R amp, otherwise S) SBO S/p lysis of adhesions and small-bowel resection with primary anastomosis on PLAN - Continue Cefepime #7/7 for HAP - 06/23/18 SP - Zosyn #2 - f/u Repeat CXR - read pending - Monitor CBC and Temps We will continue to follow the patient during this hospitalization. Subjective Allergies: Coded Allergies: ACETAMINOPHEN (Verified Allergy, Unknown, itching, 06/21/18) CODEINE (Verified Allergy, Unknown, 06/21/18) Uncoded Allergies: iodoform packing (Allergy, Unknown, redness, swelling, 06/21/18) Subjective afebrile no leukocytosis Objective Vital Signs Last 24 Hour Vital Signs Date Time Temp Pulse Resp B/P (MAP) Pulse Ox O2 Delivery O2 Flow Rate FiO2 07/01/18 09:00 Nasal Cannula 4.0 07/01/18 08:00 97.9 76 18 121/65 (83) 76 07/01/18 07:06 97 Nasal Cannula 2.0 28 07/01/18 07:06 Nasal Cannula 2.0 28 07/01/18 04:35 97.2 64 20 120/67 (84) 99 64 07/01/18 00:00 97.9 78 20 124/71 (88) 100 06/30/18 21:00 Nasal Cannula 4.0 06/30/18 20:00 97.7 88 19 134/60 (84) 98 06/30/18 16:00 98.0 76 18 125/61 (82) 98 Height (Feet): 5 Height (Inches): 3.00 Weight (Pounds): 135 Objective Gen: NAD, On 4L NC and satting well HEENT: NCAT, MMM, EOMI LUNGS: Course B/L , No W CARDS: RRR, S1, S2, No M/R/G, ABD: Soft, NT, ND, + BS NEURO: A/O x 2, Strength and Sensation Grossly intact Laboratory Tests Test 07/01/18 05:30 White Blood Count 9.9 K/UL (4.8-10.8) Red Blood Count 3.91 M/UL (4.20-5.40) L Hemoglobin 10.7 G/DL (12.0-16.0) L Hematocrit 34.5 % (37.0-47.0) L Mean Corpuscular Volume 88 FL (80-99) Mean Corpuscular Hemoglobin 27.3 PG (27.0-31.0) Mean Corpuscular Hemoglobin Concent 31.0 G/DL (32.0-36.0) L Red Cell Distribution Width 15.0 % (11.6-14.8) H Platelet Count 415 K/UL (150-450) Mean Platelet Volume 6.2 FL (6.5-10.1) L Neutrophils (%) (Auto) 70.4 % (45.0-75.0) Lymphocytes (%) (Auto) 18.8 % (20.0-45.0) L Monocytes (%) (Auto) 6.0 % (1.0-10.0) Eosinophils (%) (Auto) 3.5 % (0.0-3.0) H Basophils (%) (Auto) 1.4 % (0.0-2.0) Sodium Level 142 MMOL/L (136-145) Potassium Level 3.9 MMOL/L (3.5-5.1) Chloride Level 104 MMOL/L (98-107) Carbon Dioxide Level 34 MMOL/L (21-32) H Anion Gap 5 mmol/L (5-15) Blood Urea Nitrogen 8 mg/dL (7-18) Creatinine 0.6 MG/DL (0.55-1.30) Estimat Glomerular Filtration Rate > 60 mL/min (>60) Glucose Level 76 MG/DL (74-106) Calcium Level 8.4 MG/DL (8.5-10.1) L Current Medications Medications (Trade) Dose Ordered Sig/Sandra Route PRN Reason Start Time Stop Time Status Last Admin Dose Admin Cefepime HCl 1 gm/ Dextrose 55 ml @ 110 mls/hr Q12HR@0000,1200 IVPB 4/12/19 00:00 07/04/18 00:00 07/01/18 00:51 Chlorhexidine Gluconate (Chioma-Hex 2%) 1 applic DAILY@2000 TOPIC 06/25/18 20:00 07/24/18 19:59 06/30/18 21:53 Cyclobenzaprine HCl (Flexeril) 10 mg Q8HR ORAL 06/25/18 14:00 07/19/18 21:59 07/01/18 05:41 Dextrose (Dextrose 50%) 25 ml Q30M PRN IV Hypoglycemia 06/25/18 13:45 07/23/18 15:44 Dextrose (Dextrose 50%) 50 ml Q30M PRN IV Hypoglycemia 06/25/18 13:45 07/23/18 15:44 Gabapentin (Neurontin) 400 mg THREE TIMES A DAY ORAL 06/25/18 18:00 07/20/18 08:59 07/01/18 10:18 Heparin Sodium (Porcine) (Heparin 5000 units/ml) 5,000 units EVERY 12 HOURS SUBQ 06/25/18 21:00 07/20/18 08:59 07/01/18 10:25 Levothyroxine Sodium (Synthroid) 100 mcg ACBREAKFAST ORAL 06/26/18 06:30 07/20/18 06:29 07/01/18 05:40 Pantoprazole (Protonix) 40 mg DAILY ORAL 06/26/18 09:00 07/26/18 08:59 07/01/18 10:19 Tramadol HCl (Ultram) 50 mg Q6H PRN ORAL Moderate pain(4-6) 06/25/18 18:19 07/02/18 18:18 06/29/18 10:16 Lisa Cartagena M.D. Jul 01, 2018 13:14
--- NOTE | 2018-07-01 14:37 | NUR ---
*-* INSURANCE *--* ALL CLINICALS AND REVIEWS HAVE BEEN FAXED TO: [facility] [phone] F [phone]
--- NOTE | 2018-07-01 15:16 | NUR ---
CASE MANAGEMENT:REVIEW 07/01/18 SI: SBO. POD #10 S/P LYSIS OF ADHESIONS,SBO RESECTION/ANASTOMOSIS 97.0 83 18 127/74 98% ON 4L/NC H/H-10.7/34.5 IS:IV CEFEPIME Q12 PROTONIX PO QD SYNTHROID PO QAM HEPARIN SQ Q12 NOW ON MED/SURG 4 [facility] DCP: PATIENT IS FROM HOME BUT TOO WEAK TO RETURN PLAN: [facility] AGREED TO ACCEPT THIS PATIENT YESTERDAY. WE ARE STILL WAITING FOR AUTHORIZATION FROM JIGNESH AT [facility] TO GIVE AUTHORIZATION
[2018-07-01 16:00] VITALS: BP 115/67
--- NOTE | 2018-07-01 16:24 | Internal Med Progress Note ---
Subjective Date of Service: Jul 01, 2018 Physician Name Alcides Velazquez Attending Physician Satinder Brewer MD Current Medications Medications (Trade) Dose Ordered Sig/Sandra Route PRN Reason Start Time Stop Time Status Last Admin Dose Admin Cefepime HCl 1 gm/ Dextrose 55 ml @ 110 mls/hr Q12HR@0000,1200 IVPB 06/27/18 00:00 07/04/18 00:00 07/01/18 13:39 Chlorhexidine Gluconate (Chioma-Hex 2%) 1 applic DAILY@2000 TOPIC 06/25/18 20:00 07/24/18 19:59 06/30/18 21:53 Cyclobenzaprine HCl (Flexeril) 10 mg Q8HR ORAL 06/25/18 14:00 07/19/18 21:59 07/01/18 15:19 Dextrose (Dextrose 50%) 25 ml Q30M PRN IV Hypoglycemia 06/25/18 13:45 07/23/18 15:44 Dextrose (Dextrose 50%) 50 ml Q30M PRN IV Hypoglycemia 06/25/18 13:45 07/23/18 15:44 Gabapentin (Neurontin) 400 mg THREE TIMES A DAY ORAL 06/25/18 18:00 07/20/18 08:59 07/01/18 14:21 Heparin Sodium (Porcine) (Heparin 5000 units/ml) 5,000 units EVERY 12 HOURS SUBQ 06/25/18 21:00 07/20/18 08:59 07/01/18 10:25 Levothyroxine Sodium (Synthroid) 100 mcg ACBREAKFAST ORAL 06/26/18 06:30 07/20/18 06:29 07/01/18 05:40 Pantoprazole (Protonix) 40 mg DAILY ORAL 06/26/18 09:00 07/26/18 08:59 07/01/18 10:19 Tramadol HCl (Ultram) 50 mg Q6H PRN ORAL Moderate pain(4-6) 06/25/18 18:19 07/02/18 18:18 06/29/18 10:16 Allergies: Coded Allergies: ACETAMINOPHEN (Verified Allergy, Unknown, itching, 06/21/18) CODEINE (Verified Allergy, Unknown, 06/21/18) Uncoded Allergies: iodoform packing (Allergy, Unknown, redness, swelling, 06/21/18) ROS Limited/Unobtainable: No Constitutional: Reports: no symptoms HEENT: Reports: no symptoms Cardiovascular: Reports: no symptoms Respiratory: Reports: no symptoms Gastrointestinal/Abdominal: Reports: abdominal pain Genitourinary: Reports: no symptoms Neurologic/Psychiatric: Reports: no symptoms Subjective 68 YO F admitted with abdominal pain. Now small bowel obstruction. S/P exploratory laparotomy, lysis of adhesions and small bowel resection/ anastomosis 06/21/18. Cover for Int Med-Dr Brewer Objective Last Vital Signs Date Time Temp Pulse Resp B/P (MAP) Pulse Ox O2 Delivery O2 Flow Rate FiO2 07/01/18 12:00 97.0 83 18 127/74 (91) 98 83 07/01/18 09:00 Nasal Cannula 4.0 07/01/18 07:06 28 Laboratory Tests Test 07/01/18 05:30 White Blood Count 9.9 K/UL (4.8-10.8) Red Blood Count 3.91 M/UL (4.20-5.40) L Hemoglobin 10.7 G/DL (12.0-16.0) L Hematocrit 34.5 % (37.0-47.0) L Mean Corpuscular Volume 88 FL (80-99) Mean Corpuscular Hemoglobin 27.3 PG (27.0-31.0) Mean Corpuscular Hemoglobin Concent 31.0 G/DL (32.0-36.0) L Red Cell Distribution Width 15.0 % (11.6-14.8) H Platelet Count 415 K/UL (150-450) Mean Platelet Volume 6.2 FL (6.5-10.1) L Neutrophils (%) (Auto) 70.4 % (45.0-75.0) Lymphocytes (%) (Auto) 18.8 % (20.0-45.0) L Monocytes (%) (Auto) 6.0 % (1.0-10.0) Eosinophils (%) (Auto) 3.5 % (0.0-3.0) H Basophils (%) (Auto) 1.4 % (0.0-2.0) Sodium Level 142 MMOL/L (136-145) Potassium Level 3.9 MMOL/L (3.5-5.1) Chloride Level 104 MMOL/L (98-107) Carbon Dioxide Level 34 MMOL/L (21-32) H Anion Gap 5 mmol/L (5-15) Blood Urea Nitrogen 8 mg/dL (7-18) Creatinine 0.6 MG/DL (0.55-1.30) Estimat Glomerular Filtration Rate > 60 mL/min (>60) Glucose Level 76 MG/DL (74-106) Calcium Level 8.4 MG/DL (8.5-10.1) L Intake and Output 06/30/18 07/01/18 18:59 06:59 Intake Total 720 ml 55 ml Output Total 1700 ml 1200 ml Balance -980 ml -1145 ml Intake Oral 720 ml IV Total 55 ml Output Urine Total 1700 ml 1200 ml Objective PHYSICAL EXAMINATION:. GENERAL: The patient is awake, responsive, and moaning in pain. HEAD AND NECK: Pupils are reactive to light. Extraocular movements are intact. NECK: Supple. No JVD. LUNGS: Good air entry. No wheezes or rhonchi. Coarse breath sounds. Decreased air in bases. ABDOMEN: Soft and not distended. Mildly obese. No rebound tenderness. Decreased bowel sounds. EXTREMITIES: No cyanosis, clubbing, or edema. NEUROLOGICAL: Cranial nerves II through XII grossly intact. The patient moving all extremities. RECTAL: Refused and deferred. GENITOURINARY: Refused and deferred. Assessment/Plan Assessment/Plan ASSESSMENT: 1. Abdominal pain associated with nausea and vomiting, Small bowel obstruction. 2. History of COPD. 3. Congestive heart failure. 4. Sick sinus syndrome with status post pacemaker. 5. Hypothyroidism. 6. Diabetes type 2. 7. Interstitial lung disease. 8. History of PE, status post IVC filter. 9. The patient has a history of acute kidney injury as well. PLAN: ICU statius. S/P expl lap, small bowel resection/anastomosis and lysis of adhesions on by Dr. Vigil General Surgery; Dr. Herrera, Pulmonary Critical Care; and Dr. Mesa from Gastroenterology. Code status is Full Code. Keep the Tolerating regular diet. IV hydration. We will monitor laboratory closely. DVT prophylaxis with heparin subcutaneous. [facility]charge [facility] when bed available. Alcides Velazquez MD Jul 01, 2018 16:24
--- NOTE | 2018-07-01 16:27 | NUR ---
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
--- NOTE | 2018-07-01 19:07 | NUR ---
NURSE NOTES: Abdominal dressing remains clean and intact,no complaints at this time,call light within reach,bed alarm is on.
--- NOTE | 2018-07-01 19:35 | NUR ---
HAND-OFF: Report given to Rehana Santos.
[2018-07-01 20:00] VITALS: BP 113/62
[2018-07-01] MEDS: Dyna-Hex 2% Top Sol 2oz TOPIC SCH (20:00)
--- NOTE | 2018-07-01 20:00 | NUR ---
NURSE NOTES: Received patient from LEVI Quintanilla. Patient is in bed, awake, alert and oriented x4. Patient is complaint of pain 9/10 in her knees, back, hip, and sacral area. Patient has padded side rails for seizure precaution. PICC line on right forearm, dressing changed on 07/01/2018, dry and intact. Dressing on abdomen dry and intact. Patient is on NS 4ml O2 97%, no s/s of SOB or distress. Bed is at the lowest position, bed alarm active, side rails are up x2, call light within reach. Will continue to monitor.
[2018-07-01] MEDS: traMADol 50mg tab ORAL PRN (23:21)
[2018-07-02] VITALS: BP 126/62
[2018-07-02 04:00] VITALS: BP 114/51
[2018-07-02] MEDS: Cyclobenzaprine 10mg Tab ORAL SCH (06:41)
--- NOTE | 2018-07-02 07:28 | NUR ---
NURSE NOTES: received report from LEVI Kimball. patient in bed. alert. verbally responsive. no respiratory distress noted. no c/o pain at this time. bed in the lowest position. call light within reach. will continue to monitor.
--- NOTE | 2018-07-02 07:37 | NUR ---
HAND-OFF: Report given to LEVI Carpenter.
[2018-07-02 08:00] VITALS: BP 99/53
--- NOTE | 2018-07-02 09:40 | NUR ---
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
[2018-07-02] MEDS: Heparin 5000 units/ml inj SUBQ SCH (09:56)
--- NOTE | 2018-07-02 10:17 | NUR ---
RD ASSESSMENT & RECOMMENDATIONS SEE CARE ACTIVITY FOR COMPLETE ASSESSMENT DAILY ESTIMATED NEEDS: Needs based on Surgery 58.6kg 25-30 kcals/kg 0146-2253 total kcals 1-2 g protein/kg 59-118 g total protein 25-30 mL/kg 5747-3527 total fluid mLs NUTRITION DIAGNOSIS: 1) Altered GI fxn r/t SBO as evidenced by s/p ex lap w/ bowel resection and lysis of adhesions, diet now advanced to regular, soft easy chew, w/ improved PO intake. CURRENT DIET:Regular soft easy chew PO DIET RECOMMENDATIONS: Rec SOFT/ LOW FIBER DIET / texture as tolerated ADDITIONAL RECOMMENDATIONS: 1) CALIBRATED BEDSCALE WTS 2) Diet per surgery, s/p ex lap of bowel resection 3) Monitor lytes, replete as needed 4) Monitor BGs closely, h/o DM 5) Ensure Enlive BID w/ poor and variable PO 6) WC eval for sacral wound. -> Rec add MVI x 1 + Isaak 1pkt BID
--- NOTE | 2018-07-02 11:00 | GI Progress Note ---
Assessment/Plan Problems: (1) S/P small bowel resection ICD Codes: Z90.49 - Acquired absence of other specified parts of digestive tract SNOMED: 62920387, 309640337, [id number] (2) Abdominal pain ICD Codes: R10.9 - Unspecified abdominal pain SNOMED: 11631395 (3) Hypothyroidism ICD Codes: E03.9 - Hypothyroidism, unspecified SNOMED: 13889836 (4) Chronic pain ICD Codes: G89.29 - Other chronic pain SNOMED: 45516484 (5) Diabetes mellitus ICD Codes: E11.9 - Type 2 diabetes mellitus without complications SNOMED: 63205823 Status: stable Status Narrative Discussed with Dr. Mesa Assessment/Plan Assessment - SBO - s/p exlap - abd pain Recommendations - Diet per surgery, regular diet - post op care - Surgical follow up - IVF - Follow exam -Pain management - ppi The patient was seen and examined at bedside and all new and available data was reviewed in the patients chart. I agree with the above findings, impression and plan. (Patient seen earlier today. Signature stamp does not reflect patient encounter time.). - Olivier Mesa MD Subjective Gastrointestinal/Abdominal: Reports: no symptoms Objective Last 24 Hour Vital Signs Date Time Temp Pulse Resp B/P (MAP) Pulse Ox O2 Delivery O2 Flow Rate FiO2 07/02/18 08:00 97.2 73 20 99/53 (68) 98 73 07/02/18 04:00 98.0 72 20 114/51 (72) 99 70 07/02/18 00:00 97.5 70 20 126/62 (83) 98 70 07/01/18 21:00 Nasal Cannula 4.0 07/01/18 20:00 97.5 85 20 113/62 (79) 97 85 07/01/18 20:00 Nasal Cannula 2.0 28 07/01/18 19:30 95 Nasal Cannula 2.0 28 07/01/18 16:00 97.5 73 17 115/67 (83) 97 73 07/01/18 12:00 97.0 83 18 127/74 (91) 98 83 Intake and Output 07/01/18 07/02/18 19:00 07:00 Intake Total 990 ml 55 ml Output Total 1450 ml 900 ml Balance -460 ml -845 ml Intake Oral 990 ml IV Total 55 ml Output Urine Total 1450 ml 900 ml Height (Feet): 5 Height (Inches): 3.00 Weight (Pounds): 152 General Appearance: WD/WN, no apparent distress, alert Cardiovascular: normal rate Respiratory/Chest: normal breath sounds, no respiratory distress Abdominal Exam: normal bowel sounds, non tender, soft Extremities: normal range of motion, non-tender Shelby Roberson NP Jul 02, 2018 11:00
--- NOTE | 2018-07-02 11:09 | Infectious Diseases Prog Note ---
Assessment/Plan Assessment/Plan 68 yo female with complicated PMHx who presented to the ED on 06/19/18 with N/V and progressive abdominal pain. HAP Positive sputum 06/21/18 - P.a. Acinetobacter, K. pneumo and NF - All sen to levo and Cefepime CXR 06/23/18 - Bilateral diffuse interstitial and airspace disease, stable or slightly worse compared to previous study of one day earlier Leukocytosis - resolved No fevers Pyuria/ bacteriuria -wbc 5-10; ucx Kpna (R amp, otherwise S) SBO S/p lysis of adhesions and small-bowel resection with primary anastomosis on PLAN - Continue Cefepime #8/7-10 for HAP - 06/23/18 SP - Zosyn #2 - Monitor CBC and Temps -CXR am We will continue to follow the patient during this hospitalization. Subjective Allergies: Coded Allergies: ACETAMINOPHEN (Verified Allergy, Unknown, itching, 06/21/18) CODEINE (Verified Allergy, Unknown, 06/21/18) Uncoded Allergies: iodoform packing (Allergy, Unknown, redness, swelling, 06/21/18) Subjective afebrile no leukocytosis Objective Vital Signs Last 24 Hour Vital Signs Date Time Temp Pulse Resp B/P (MAP) Pulse Ox O2 Delivery O2 Flow Rate FiO2 07/02/18 08:00 97.2 73 20 99/53 (68) 98 73 07/02/18 04:00 98.0 72 20 114/51 (72) 99 70 07/02/18 00:00 97.5 70 20 126/62 (83) 98 70 07/01/18 21:00 Nasal Cannula 4.0 07/01/18 20:00 97.5 85 20 113/62 (79) 97 85 07/01/18 20:00 Nasal Cannula 2.0 28 07/01/18 19:30 95 Nasal Cannula 2.0 28 07/01/18 16:00 97.5 73 17 115/67 (83) 97 73 07/01/18 12:00 97.0 83 18 127/74 (91) 98 83 Height (Feet): 5 Height (Inches): 3.00 Weight (Pounds): 152 Objective Gen: NAD, On 4L NC and satting well HEENT: NCAT, MMM, EOMI LUNGS: Course B/L , No W CARDS: RRR, S1, S2, No M/R/G, ABD: Soft, NT, ND, + BS NEURO: A/O x 2, Strength and Sensation Grossly intact Current Medications Medications (Trade) Dose Ordered Sig/Sandra Route PRN Reason Start Time Stop Time Status Last Admin Dose Admin Cefepime HCl 1 gm/ Dextrose 55 ml @ 110 mls/hr Q12HR@0000,1200 IVPB 06/27/18 00:00 07/04/18 00:00 07/01/18 23:26 Chlorhexidine Gluconate (Chioma-Hex 2%) 1 applic DAILY@2000 TOPIC 06/25/18 20:00 07/24/18 19:59 06/30/18 21:53 Cyclobenzaprine HCl (Flexeril) 10 mg Q8HR ORAL 06/25/18 14:00 07/19/18 21:59 07/02/18 06:41 Dextrose (Dextrose 50%) 25 ml Q30M PRN IV Hypoglycemia 06/25/18 13:45 07/23/18 15:44 Dextrose (Dextrose 50%) 50 ml Q30M PRN IV Hypoglycemia 06/25/18 13:45 07/23/18 15:44 Gabapentin (Neurontin) 400 mg THREE TIMES A DAY ORAL 06/25/18 18:00 07/20/18 08:59 07/02/18 09:55 Heparin Sodium (Porcine) (Heparin 5000 units/ml) 5,000 units EVERY 12 HOURS SUBQ 06/25/18 21:00 07/20/18 08:59 07/02/18 09:56 Levothyroxine Sodium (Synthroid) 100 mcg ACBREAKFAST ORAL 06/26/18 06:30 07/20/18 06:29 07/02/18 06:40 Pantoprazole (Protonix) 40 mg DAILY ORAL 06/26/18 09:00 07/26/18 08:59 07/02/18 09:55 Tramadol HCl (Ultram) 50 mg Q6H PRN ORAL Moderate pain(4-6) 06/25/18 18:19 07/02/18 18:18 07/01/18 23:21 Lisa Cartagena M.D. Jul 02, 2018 11:09
--- NOTE | 2018-07-02 11:30 | NUR ---
NURSE NOTES patient report given to aisha le spoke to ellen.
--- NOTE | 2018-07-02 12:55 | NUR ---
NURSE NOTES: patient discharged to [facility]. with fair condition via ambulance. no respiratory distress noted. with NC 2l. no c/o pain at this time. removed F/C and picc line as ordered. no bleeding noted. pressure injury st 2 on sacral. no skin oepn. applied new dressing and picture taken. refused to sign on belonging and discharge paper. notified charge nurse. report given to the ambulance personnel and dc packet.
--- NOTE | 2018-07-03 12:37 | Discharge Summary ---
Discharge Summary Discharge Summary _ DATE OF ADMISSION: 06/19/2018 DATE OF DISCHARGE: 07/02/2018 DISCHARGED BY: DR. RYAN SANTANA ADDENDUM TO DISCHARGE SUMMARY: Patient was unable to be discharged back to board and care. Unable to go back to prior living arrangement. Patient required higher level of care and [facility] She was given physical therapy. She was eventually accepted at [facility]. Insurance authorization was obtained. She was discharged to SNF. FINAL DIAGNOSES: 1. Abdominal pain, nausea and vomiting most likely secondary to small bowel obstruction status post oratory laparotomy with lysis of adhesions and small bowel resection 06/21/18 2. COPD. 3. Congestive heart failure. 4. Sick sinus syndrome status post pacemaker. 5. Hypothyroidism. 6. Diabetes type 2. 7. Interstitial lung disease. 8. History of PE status post IVC filter. 9. History of acute kidney injury. 10. Healthcare associated pneumonia 11. Pyuria/Bacteriuria with K. pneumoniae I was assigned to complete a DC summary on this account, I was not involved with the patient's management. Abimbola Hopson NP Jul 03, 2018 12:37
== END 2018-07-02 12:54 | DRG 230 ==
LOC: EMR 18:46 → 2E 19:30 → EDBEDREQ 20:50 → 2E 21:06 → ICU 06-21 16:00 → 2W 06-23 20:11 → 4E 06-25 13:53
PROC: 06HM33Z Insertion of Infusion Device into Right Femoral Vein, Percutaneous Approach (ICD-10-PCS; 2018-06-21)
PROC: 0DN80ZZ Release Small Intestine, Open Approach (ICD-10-PCS; principal; 2018-06-21 13:30)
PROC: 0DB80ZZ Excision of Small Intestine, Open Approach (ICD-10-PCS; principal; 2018-06-21 13:30)
PROC: 0BH17EZ Insertion of Endotracheal Airway into Trachea, Via Natural or Artificial Opening (ICD-10-PCS; principal; 2018-06-21 13:30)
PROC: 5A1935Z Respiratory Ventilation, Less than 24 Consecutive Hours (ICD-10-PCS; principal; 2018-06-21 13:30)
PROC: B548ZZA Ultrasonography of Superior Vena Cava, Guidance (ICD-10-PCS; 2018-06-24)
PROC: 02HV33Z Insertion of Infusion Device into Superior Vena Cava, Percutaneous Approach (ICD-10-PCS; 2018-06-24)
DX: K56.51 Intestinal adhesions [bands], with partial obstruction (principal); J84.9 Interstitial pulmonary disease, unspecified; J18.9 Pneumonia, unspecified organism; I95.9 Hypotension, unspecified; I50.9 Heart failure, unspecified; I49.5 Sick sinus syndrome; J44.0 Chronic obstructive pulmonary disease with (acute) lower respiratory infection; E11.9 Type 2 diabetes mellitus without complications; K52.9 Noninfective gastroenteritis and colitis, unspecified; E03.9 Hypothyroidism, unspecified; Z95.0 Presence of cardiac pacemaker; E86.0 Dehydration; R09.02 Hypoxemia; Y95 Nosocomial condition; Z86.711 Personal history of pulmonary embolism; Z96.641 Presence of right artificial hip joint; Z98.84 Bariatric surgery status; I95.1 Orthostatic hypotension; Z85.41 Personal history of malignant neoplasm of cervix uteri; G89.29 Other chronic pain; N39.0 Urinary tract infection, site not specified
CPT/HCPCS: 36415; 36569; 36600; 71045; 74018; 74176; 74250; 76700; 76937; 80048; 80053; 81003; 82150; 82803; 83690; 83735; 84100; 84484; 85007; 85025; 85610; 85651; 85730; 86140; 87070; 87086; 87181; 87205; 93005; 94002; 94003; 94150; 94760; 96361; 96365; 96375; 99291; J2405